=== PATIENT | male | born 1970 | race Caucasian/White ===

== ENCOUNTER 2024-04-18 15:20 | Emergency (ER) | payer OTHER, SELFPAY ==
[2024-04-18] VITALS (17 sets, daily range): BP systolic 116–134; BP diastolic 72–87; PULSE 64–73; TEMP 36.8; O2SAT 95–100
[2024-04-18 16:22] LABS: Basophils Percent Auto 0.4 % (0.2-2.0); Eosinophils Percent Auto 0.1 % (0.9-7.0); Hematocrit 36.4 % (42.0-54.0); Immature Granulocytes Abs Auto 0.04 10^3/uL (0.00-0.03); Immature Granulocytes Pct Auto 0.4 % (0.0-0.5); Lymphocytes Absolute Auto 0.5 10^3/uL (1.2-3.8); Mean Corpuscular Hemoglobin 26.3 pg (25.9-34.0); Mean Corpuscular Volume 79.6 fL (80.0-94.0); Mean Platelet Volume 9.7 fL (9.5-13.5); Monocytes Absolute Auto 0.5 10^3/uL (0.3-0.8); Monocytes Percent Auto 5.5 % (1.7-12.0); Neutrophils Absolute Auto 8.1 10^3/uL (1.4-6.5); Neutrophils Percent Auto 88.6 % (43.0-75.0); Platelet Count 264 10^3/uL (150-450); Red Blood Count 4.57 10^6/uL (4.70-6.10); Red Cell Distribution Width 14.5 % (11.0-15.0); White Blood Count 9.2 10^3/uL (4.0-11.0)
[2024-04-18 16:40] LABS: Alanine Aminotransferase 45 U/L (16-63); Albumin Globulin Ratio 0.8; Alkaline Phosphatase 82 U/L (46-116); Anion Gap 13.8; Aspartate Amino Transferase 45 U/L (15-37); BUN Creatinine Ratio 14.6; Bilirubin Total 0.7 mg/dL (0.2-1.0); Calcium 8.5 mg/dL (8.5-10.1); Carbon Dioxide 24.8 mmol/L (21.0-32.0); Chloride 102 mmol/L (98-107); Estimated GFR (African America >60 (>=60); Estimated GFR (Non-African Ame >60 (>=60); Globulin 3.8 g/dL; Glucose 95 mg/dL (74-106); Potassium 3.6 mmol/L (3.5-5.1); Sodium 137 mmol/L (136-145); Total Protein 6.8 g/dL (6.4-8.2); Troponin I High Sensitivity 6.1 pg/mL (4.0-76.1)
[2024-04-18 16:45] LABS: Creatine Kinase 346 U/L (39-308)
--- NOTE | 2024-04-18 17:20 | ED_ITS ---
HPI - Chest Pain General Chief Complaint: Chest Pain Stated Complaint: SOB AND PRESSURE, BACK/SHOULDER PAIN Time Seen by Provider: 04/18/24 16:11 Source: patient Mode of arrival: walk-in Limitations: no limitations History of Present Illness HPI narrative: The patient is coming to the ER after he was recently almost a month ago started on hydrochlorothiazide the patient noticed since then he has been having some muscle pain and joint pain that he mentioned that he runs frequently at least 10 miles daily, and he recently after restarting hydrochlorothiazide has been keeping himself hydrated, but he notes that he is been using ibuprofen daily because of the pain and the pain is all over his body and joints upper and lower no fever no chills no specific pain in 1 place more than the other. The patient have muscular pain all over the body including the chest and abdomen no nausea no vomiting no other concerns no diarrhea Related Data Previous Rx's ?Medication ?Instructions ?Recorded amlodipine 10 mg tablet 10 mg PO DAILY #30 tabs 04/18/24 prednisone 20 mg tablet 40 mg (2 x 20 mg) PO DAILY 5 days 04/18/24 #10 tabs Allergies Allergy/AdvReac Type Severity Reaction Status Date / Time codeine Allergy Mild Nausea Verified 04/18/24 15:36 Review of Systems ROS Status of ROS 10 or more systems reviewed and unremark able except as noted in history and below Exam Narrative Exam Narrative: Nurses notes and vital signs reviewed and patient is not hypoxic. General: Well-appearing and in no apparent distress. Skin: Warm, dry, no pallor noted. No rash. Head: Normocephalic, atraumatic. Neck: Supple, non-tender. Eye: Pupils are equal, round and EOMI. No scleral icterus. Ears, Nose, Mouth, and Throat: TM are clear, no nasal mucosal hypertrophy. Oral mucosa is moist, no posterior oropharynx erythema, uvula is mid-line Cardiovascular: Regular Rate and Rhythm without murmur, gallop or rub. Respiratory: No accessory muscle use or respiratory distress. Lungs are clear to auscultation, no wheezing, rales or rhonchi Chest Wall: no tenderness Back: No midline thoracic or lumbar vertebral tenderness. No CVA tenderness Musculoskeletal: normal ROM, no calf or popliteal tenderness, no lower extremity edema/swelling GI: Abdomen is soft, non-distended. Normal bowel sounds. No masses appreciated. No tenderness to palpation. No rebound, guarding, or rigidity noted. Neurological: A&O x4. No cranial nerve dysfunction observed. No truncal ataxia. Moves all extremities. Sensation intact. Psychiatric: Cooperative and interactive. Normal mood and affect. Constitutional Vital Signs, click to edit/add: Last Vital Signs Temp 98.3 F 04/18/24 15:36 Pulse 65 04/18/24 17:45 Resp 16 04/18/24 17:44 BP 118/74 04/18/24 17:45 Pulse Ox 96 04/18/24 17:45 O2 Del Method Room Air 04/18/24 16:14 Course Vital Signs Vital signs: Vital Signs Temperature 98.3 F 04/18/24 15:36 Pulse Rate 72 04/18/24 15:36 Respiratory Rate 17 04/18/24 15:36 Blood Pressure 129/77 04/18/24 15:36 Pulse Oximetry 97 04/18/24 15:36 Temperature 98.3 F 04/18/24 15:36 Pulse Rate 65 04/18/24 17:45 Respiratory Rate 16 04/18/24 17:44 Blood Pressure 118/74 04/18/24 17:45 Pulse Oximetry 96 04/18/24 17:45 Oxygen Delivery Method Room Air 04/18/24 16:14 MDM - Chest Pain MDM Narrative Medical decision making narrative: The patient EKG was showing sinus rhythm with a heart rate of [address] elevation or depression CBC chemistry as well as troponin showed no acute pathology the patient had a CK mildly elevated The patient muscle pain could be secondary to multiple reasons including could be a viral infection although the patient also running daily 10 miles , although it is his routine in this hot weather with the fact that he just started on hydrochlorothiazide could be a further element to dehydrate him and cause more muscle ache The patient right now will have the amlodipine increased to 10 mg instead of the hydrochlorothiazide and he will stop taking the hydrochlorothiazide He will monitor his blood pressure daily in case of elevated blood pressure he is to come back to the ER to be evaluated further or just follow-up with his primary care doctor The patient was provided with prednisone for the next 5 days as anti- inflammatory he is to rest from running and hydrate very well in case of any worsening he is to come back to the ER The patient is to follow up with primary care physician in next 2-3 days or to return to the emergency department should any of the signs or symptoms worsen or new symptoms develop. The patient agrees with the following Diagnosis and Treatment plan and the patient will be discharged home. Lab Data Labs: Lab Results 04/18/24 Range/Units 15:56 WBC 9.2 (4.0-11.0) 10^3/uL RBC 4.57 L (4.70-6.10) 10^6/uL Hgb 12.0 L (14.0-18.0) g/dL Hct 36.4 L (42.0-54.0) % MCV 79.6 L (80.0-94.0) fL MCH 26.3 (25.9-34.0) pg MCHC 33.0 (29.9-35.2) g/dL RDW 14.5 (11.0-15.0) % Plt Count 264 (150-450) 10^3/uL MPV 9.7 (9.5-13.5) fL Neut % (Auto) 88.6 H (43.0-75.0) % Lymph % (Auto) 5.0 L (20.5-60.0) % [place] % (Auto) 5.5 (1.7-12.0) % Eos % (Auto) 0.1 L (0.9-7.0) % Baso % (Auto) 0.4 (0.2-2.0) % Neut # (Auto) 8.1 H (1.4-6.5) 10^3/uL Lymph # (Auto) 0.5 L (1.2-3.8) 10^3/uL [place] # (Auto) 0.5 (0.3-0.8) 10^3/uL Eos # (Auto) 0.0 (0.0-0.7) 10^3/uL Baso # (Auto) 0.0 (0.0-0.1) 10^3/uL Abs Immat Gran (auto) 0.04 H (0.00-0.03) 10^3/uL Imm/Tot Granulo (auto) 0.4 (0.0-0.5) % Sodium 137 (136-145) mmol/L Potassium 3.6 (3.5-5.1) mmol/L Chloride 102 (98-107) mmol/L Carbon Dioxide 24.8 (21.0-32.0) mmol/L Anion Gap 13.8 BUN 14.0 (7.0-18.0) mg/dL Creatinine 0.96 (0.70-1.30) mg/dL Est GFR ( Amer) >60 (>=60) Est GFR (Non-Af Amer) >60 (>=60) BUN/Creatinine Ratio 14.6 Glucose 95 (74-106) mg/dL Calcium 8.5 (8.5-10.1) mg/dL Total Bilirubin 0.7 (0.2-1.0) mg/dL AST 45 H (15-37) U/L ALT 45 (16-63) U/L Alkaline Phosphatase 82 (46-116) U/L Total Creatine Kinase 346 H* (39-308) U/L Troponin I High Sens 6.1 (4.0-76.1) pg/mL Total Protein 6.8 (6.4-8.2) g/dL Albumin 3.0 L (3.4-5.0) g/dL Globulin 3.8 g/dL Albumin/Globulin Ratio 0.8 Discharge Plan Discharge Stand Alone Forms: Portal Instructions Chief Complaint: Chest Pain Clinical Impression: Generalized muscle ache Patient Disposition: Home, Self-Care Time of Disposition Decision: 17:20 Condition: Good Prescriptions / Home Meds: New amlodipine 10 mg tablet 10 mg PO DAILY Qty: 30 0RF prednisone 20 mg tablet 40 mg PO DAILY 5 Days Qty: 10 0RF Print Language: Vietnamese Instructions: Musculoskeletal Pain (ED) Referrals: DALIA CÁRDENAS [Primary Care Provider] - 1 week Discharge Date/Time: 04/18/24 17:56
[2024-04-18] MEDS: METHYLPREDNISOLONE SOD SUCC PF 40 MG/ML VIAL IVP (17:43)
--- NOTE | 2024-04-18 17:43 | ECG_ITS ---
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
== END 2024-04-18 17:56 | disposition home or self-care (01) ==
PROVIDERS: Emergency Provider Emergency Medicine; PCP Internal Medicine
DX: M79.10 Myalgia, unspecified site (principal); Z79.899 Other long term (current) drug therapy
CPT/HCPCS: 36415; 80053; 82550; 84484; 85025; 93005; 96374; 99285; J2919

== ENCOUNTER 2024-04-22 10:10 | Inpatient (IN) | payer OTHER, SELFPAY ==
[2024-04-22] VITALS (20 sets, daily range): BP systolic 136–141; BP diastolic 81–87; PULSE 53–78; TEMP 36.7; O2SAT 94–99; BMI 23.6; BMI 24.1
--- NOTE | 2024-04-22 10:31 | CT_ITS ---
[address] [address] Patient Name: LONDON DAMON MRN: [id number] date: 1970 Sex: M Assigned Patient Location: ED.MAIN Current Patient Location: Accession/Order Number: [id number] Exam Date: 04/22/2024 11:49 Report Date: 04/22/2024 12:54 At the request of: DANICA PINEDA Procedure: CT angio chest EXAMINATION: CT angio chest, CT angio abdomen pelvis HISTORY: chest/back pain COMPARISON: No relevant comparison available. TECHNIQUE: After obtaining the patient's consent, CT images of the chest and abdomen were obtained without and with non-ionic intravenous contrast material. Axial, Coronal, and Sagittal images. Multi-planar reformatted/3-D images were created to optimize visualization of vascular anatomy. Dose reduction techniques were achieved by using automated exposure control and/or adjustment of mA and/or kV according to patient size and/or use of iterative reconstruction technique. FINDINGS: VASCULATURE:Normal postcontrast opacification of the central pulmonary arterial tree with no filling defects LUNGS:No visible pulmonary disease. PLEURA: No mass, effusion, or pneumothorax. ELLIA: No mass or adenopathy. MEDIASTINUM: No mass or adenopathy. CARDIAC: No enlargement or pericardial effusion Coronary arteries: Moderate atherosclerosis CHEST WALL: No mass or axillary adenopathy. AORTA/VASCULAR: No aneurysm or dissection. CELIAC ARTERY: Normal celiac vessels. SMA: Normal mesenteric vessels. RENAL ARTERIES: Normal renal vessels. Single right renal. Single left renal artery. ANNMARIE: Normal [place]: Mild calcific atherosclerosis. No flow significant stenosis occlusion or aneurysm LIVER: 1.3 cm hypodensity hepatic dome, a cyst is favored BILIARY: No visible dilatation or calcification. PANCREAS: No lesion, fluid collection, ductal dilatation, or atrophy. SPLEEN: No enlargement or focal lesion. ADRENALS: No mass or enlargement. KIDNEYS: No mass, obstruction, or calcification. BOWEL/MESENTERY: Moderate colonic diverticulosis without evidence of acute diverticulitis. Nonobstructive bowel gas pattern RETROPERITONEUM: No mass or adenopathy. ABDOMINAL WALL: No mass or hernia. Implanted device right posterior abdominal subcutaneous fat with the lead extending off the field of view BONES: No bony lesion or fracture. OTHER: Moderate fluid distention of the urinary bladder CT/CT angio chest IMPRESSION: No aortic aneurysm or dissection Electronically authenticated by: DENY JONES Date: 04/22/2024 12:54
--- NOTE | 2024-04-22 10:31 | CT_ITS ---
[address] [address] Patient Name: LONDON DAMON MRN: [id number] date: 1970 Sex: M Assigned Patient Location: ED.MAIN Current Patient Location: Accession/Order Number: [id number] Exam Date: 04/22/2024 11:49 Report Date: 04/22/2024 12:54 At the request of: DANICA PINEDA Procedure: CT angio abdomen pelvis EXAMINATION: CT angio chest, CT angio abdomen pelvis HISTORY: chest/back pain COMPARISON: No relevant comparison available. TECHNIQUE: After obtaining the patient's consent, CT images of the chest and abdomen were obtained without and with non-ionic intravenous contrast material. Axial, Coronal, and Sagittal images. Multi-planar reformatted/3-D images were created to optimize visualization of vascular anatomy. Dose reduction techniques were achieved by using automated exposure control and/or adjustment of mA and/or kV according to patient size and/or use of iterative reconstruction technique. FINDINGS: VASCULATURE:Normal postcontrast opacification of the central pulmonary arterial tree with no filling defects LUNGS:No visible pulmonary disease. PLEURA: No mass, effusion, or pneumothorax. LELIA: No mass or adenopathy. MEDIASTINUM: No mass or adenopathy. CARDIAC: No enlargement or pericardial effusion Coronary arteries: Moderate atherosclerosis CHEST WALL: No mass or axillary adenopathy. AORTA/VASCULAR: No aneurysm or dissection. CELIAC ARTERY: Normal celiac vessels. SMA: Normal mesenteric vessels. RENAL ARTERIES: Normal renal vessels. Single right renal. Single left renal artery. ANNMARIE: Normal [place]: Mild calcific atherosclerosis. No flow significant stenosis occlusion or aneurysm LIVER: 1.3 cm hypodensity hepatic dome, a cyst is favored BILIARY: No visible dilatation or calcification. PANCREAS: No lesion, fluid collection, ductal dilatation, or atrophy. SPLEEN: No enlargement or focal lesion. ADRENALS: No mass or enlargement. KIDNEYS: No mass, obstruction, or calcification. BOWEL/MESENTERY: Moderate colonic diverticulosis without evidence of acute diverticulitis. Nonobstructive bowel gas pattern RETROPERITONEUM: No mass or adenopathy. ABDOMINAL WALL: No mass or hernia. Implanted device right posterior abdominal subcutaneous fat with the lead extending off the field of view BONES: No bony lesion or fracture. OTHER: Moderate fluid distention of the urinary bladder CT/CT angio abdomen pelvis IMPRESSION: No aortic aneurysm or dissection Electronically authenticated by: DENY OJNES Date: 04/22/2024 12:54
--- NOTE | 2024-04-22 10:31 | US_ITS ---
[place] [address] Patient Name: LONDON DAMON MRN: [id number] date: 1970 Sex: M Assigned Patient Location: ER Current Patient Location: ER Accession/Order Number: [id number] Exam Date: 04/22/2024 10:55 Report Date: 04/22/2024 11:35 At the request of: DANICA PINEDA Procedure: US venous doppler LE RT EXAM: US venous doppler LE RT HISTORY: R leg pain/swelling COMPARISON: None. TECHNIQUE: Grayscale, color and Doppler FINDINGS: Region: Right leg Thrombus: None Flow: Normal Augmentation: Normal Compressibility: Normal Other: 6.3 x 1.4 x 2.9 cm fluid collection popliteal fossa, a popliteal cyst is favored US/US venous doppler LE RT IMPRESSION: No deep or superficial vein thrombus identified in the right leg Electronically authenticated by: DENY JONES Date: 04/22/2024 11:35
--- NOTE | 2024-04-22 10:31 | ECG_ITS ---
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
--- OUTSIDE RECORDS SUMMARY | 2024-04-22 10:32 | XMS_ITS ---
Patient Summarization (C-CDA 2.1 CCD) Created on: April 22, 2024 ANIBAL DAMON : 1970 Sex: Male Author Organization Sample organization Care Team Providers Care Cable Splicer Assistant Name Role Phone Unavailable Primary Care Provider Unavailrachael e Baljinder Hamilton Primary Care Provider Baljinder Hamilton Primary Care Provider Baljinder Hamilton Primary Care Provider Baljinder Hamilton Primary Care Provider SUKHJINDER MUSA Referring Unavailable BALJINDER ARTHUR Primary Care Unavailable MEHREEN OLIVAREZ Referring Unavailable BALJINDER ARTHUR Primary Care Unavailable CAROLYN JOSEPH Referring Unavailable BALJINDER ARTHUR Primary Care Unavailable BALJINDER ARTHUR Referring Unavailable BALJINDER ARTHUR Primary Care Unavailable Nicole Jean Attending Unavailable Nicole Jean Admitting Unavailable Provider, None Primary Care Unavailable Allergies Allergy Classification Reported Allergen(s) Allergy Type Date of Onset Reaction(s) Facility (7 sources) HYDROcodone Drug Allergy 1 [facility] (1 source) Codeine; Translations: [codeine] Drug Allergy [facility] Repository NEGATED: Highlighted row has been ruled out! (2 sources) Other Propensity to adverse reactions 3 Other (See Comments) [facility] Encounters Encounter Date Encounter Type Care Provider Facility Start: 03-17-2024 End: 03-17-2024 Emergency department patient visit Nicole Jean Facility:[facility] Start: 03-30-2023 End: 03-31-2023 ambulatory MEHREEN OLIVAREZ [facility] Start: 03-30-2023 End: 03-30-2023 Subsequent hospital visit by physician Baljinder MARSHALL Work Phone: [facility] Laboratory Comment on above: Serum potassium elev ated Start: 03-26-2023 End: 03-27-2023 ambulatory BALJINDER ARTHUR [facility] Start: 03-26-2023 End: 03-26-2023 Subsequent hospital visit by physician Baljinder MARSHALL Work Phone: [facility] Lab Comment on above: Essential (primary) hypertension; Hyperlipidemia, unspecified hyperlipidemia type Start: 08-31-2022 End: 09-03-2022 ambulatory SUKHJINDER MUSA [facility] Start: 08-31-2022 End: 09-02-2022 Subsequent hospital visit by physician [facility] Mri Rm 119 [facility] MRI Comment on above: SAH (subarachnoid he morrhage) (HCC) Complex regional constance n syndrome type 1 of left upper extremity; Failure of spinal cord stimulator, subsequent encounter Start: 07-19-2022 End: 07-19-2022 Subsequent hospital visit by physician Nidia Archer DO Work Phone: [facility] OR Comment on above: Acute post-operative pain (Primary Dx); Complex regional pain syndrome type 1 of left upper extremity; Essential (primary) hypertension; Hyperlipidemia, unspecified hyperlipidemia type Start: 07-05-2022 End: 07-09-2022 Subsequent hospital visit by physician Ion Pat Rm 2 [facility] Pre-Admit Testing Start: 09-06-2021 End: 09-08-2021 Subsequent hospital visit by physician [facility] Ct Rm 1 [facility] CT Scan Comment on above: SAH (subarachnoid he morrhage) (HCC) Start: 03-08-2021 End: 03-10-2021 Subsequent hospital visit by physician [facility] Ct Rm 1 [facility] CT Scan Comment on above: SAH (subarachnoid he morrhage) (HCC) Start: 12-22-2020 End: 12-24-2020 Subsequent hospital visit by physician [facility] Ct Rm 1 [facility] CT Scan Comment on above: Sciatica of left gogo e Start: 12-03-2020 End: 12-13-2020 Evaluation and management of inpatient Geraldo Ribera Lukasz Work Phone: [facility] 5C Neuro Comment on above: SAH (subarachnoid he morrhage) (HCC) (Primary Dx) Medical Equipment Procedure Code Equipment Code Equipment Original Text Equipment Identifier Dates Lead Pace L90cm 2x8 Spec Surescan Mri - [id number] Start: 12-11-2022 Pouch Tyrx Neuro Antimicrobial Med - [id number] Start: 12-12-2022 Plate Bne Bar L1 2mm 2 H Craniomaxillofacial Ti Rig For Univ - [id number] Start: 12-11-2022 Cath Passer 60cm - [id number] Start: 12-12-2022 Immunizations Immunization Date Immunization Notes Care Provider Fa cility 02-11-2021 COVID-19, Pfizer, PF , 30mcg/0.3mL Stc 1 [facility] Work Phone: 01-21-2021 COVID-19, Pfizer, PF , 30mcg/0.3mL Stc 1 [facility] Medications Current Medications Medication Drug Class(es) Dates Sig (Normalized) Sig (Original) acetaminophen 325 mg oral tablet (4 sources) Start: 12-13-2020 acetaminophen (TYLENOL) tablet 650 mg Start: 12-06-2020 End: 12-13-2020 acetaminophen (TYLENOL) tabl et 1,000 mg Start: 12-03-2020 End: 12-06-2020 acetaminophen (TYLENOL) tabl et 650 mg amitriptyline hydrochloride 25 mg oral tablet (1 source) Tricyclic Antidepressant Start: 01-03-2021 take 1 tablet by mouth once daily amitriptyline (ELAVIL) 25 MG tablet Take 1 tablet by mouth nightly 30 tablet 0 01/03/2021 Active atorvastatin 20 mg oral tablet (12 sources) HMG-CoA Reductase Inhibitor Start: 03-04-2023 take 1 tablet by mouth once daily atorvastatin (LIPITOR) 20 MG tablet Indications: Essential (primary) hypertension , Hyperlipidemia, unspecified hyperlipidemia type Take 1 tablet by mouth daily 90 tablet 1 03/04/2023 Active Start: 08-08-2022 take 1 tablet by mingo th once daily atorvastatin (LIPITOR) 20 MG tablet Indications: Essential (primary) hypertension , Hyperlipidemia, unspecified hyperlipidemia type Take 1 tablet by mouth daily 90 tablet 1 08/08/2022 Active Start: 04-25-2022 take 1 tablet by mingo th once daily atorvastatin (LIPITOR) 20 MG tablet Indications: Essential (primary) hypertension , Hyperlipidemia, unspecified hyperlipidemia type TAKE ONE TABLET BY MOUTH DAILY 90 tablet 0 04/25/2022 Active Start: 05-22-2021 take 1 tablet by mingo th once daily atorvastatin (LIPITOR) 20 MG tablet Indications: Essential (primary) hypertension , Hyperlipidemia, unspecified hyperlipidemia type Take 1 tablet by mouth daily 30 tablet 3 05/22/2021 Active Start: 12-13-2020 take 1 tablet by mingo th once daily atorvastatin (LIPITOR) 20 MG tablet Take 1 tablet by mouth daily 30 tablet 3 12/13/2020 Active Start: 12-05-2020 atorvastatin ( LIPITOR) tablet 40 mg Start: 12-03-2020 End: 12-04-2020 atorvastatin (LIPITOR) table t 80 mg azelastine hydrochloride 0.137 mg/actuat metered dose nasal spray (7 sources) Histamine-1 Receptor Antagonist Start: 04-20-2022 take 1 spray(s) nasal route twice daily azelastine (ASTELIN) 0.1 % nasal spray Indications: Essential (primary) hypertension , Hyperlipidemia, unspecified hyperlipidemia type 1 spray by Nasal route 2 times daily Use in each nostril as directed 2 each 1 04/20/2022 Active Start: 05-22-2021 take 1 spray(s) nasa l route twice daily azelastine (ASTELIN) 0.1 % nasal spray Indications: Essential (primary) hypertension , Hyperlipidemia, unspecified hyperlipidemia type 1 spray by Nasal route 2 times daily Use in each nostril as directed 2 Bottle 1 05/22/2021 Active cephalexin 500 mg oral capsule (1 source) Cephalosporin Antibacterial Start: 07-19-2022 End: 07-22-2022 take 1 capsule by mouth three times daily cephALEXin (KEFLEX) 500 MG capsule Take 1 capsule by mouth 3 times daily for 3 days 9 capsule 0 07/19/2022 07/22/2022 Active citalopram 10 mg oral tablet (11 sources) Serotonin Reuptake Inhibitor Start: 03-04-2023 take 1 tablet by mouth once daily citalopram (CELEXA) 10 MG tablet Indications: Anxiety Take 1 tablet by mouth daily 90 tablet 1 03/04/2023 Active Start: 11-08-2021 take 1 tablet by mingo th once daily citalopram (CELEXA) 10 MG tablet Indications: Anxiety Take 1 tablet by mouth daily 30 tablet 3 11/08/2021 Active Start: 12-04-2020 take 10 mg by mouth once daily 10 mg, Oral, DAILY, First dose on 12/04/20 at 0900 1 ml diphenhydrAMINE hydrochloride 50 mg/ml cartridge (1 source) Histamine-1 Receptor Antagonist Start: 07-19-2022 End: 07-19-2022 diphenhydrAMINE (BENADRYL) injection 12.5 mg docusate sodium 50 mg / sennosides, jail 8.6 mg oral tablet (1 source) Start: 12-05-2020 sennosides-doc usate sodium (SENOKOT-S) 8.6-50 MG tablet 2 tablet 2 ml fentaNYL 0.05 mg/ml injection (5 sources) Opioid Agonist Start: 07-19-2022 fentaNYL (SUBL IMAZE) injection 50 mcg Start: 07-19-2022 fentaNYL (SUBL IMAZE) injection 25 mcg Start: 12-13-2020 End: 12-13-2020 fentaNYL (SUBLIMAZE) injecti on Start: 12-04-2020 End: 12-04-2020 fentaNYL (SUBLIMAZE) injecti on 25 mcg Start: 12-04-2020 End: 12-04-2020 fentaNYL (SUBLIMAZE) injecti on 25 mcg fluorouracil 50 mg/ml topical cream (1 source) Nucleoside Metabolic Inhibitor Start: 09-01-2021 fluorouracil (EFUDEX ) 5 % cream Apply topically 2 times daily for not more than 4 weeks 40 g 1 09/01/2021 Active gabapentin 300 mg oral capsule (5 sources) Anti-epileptic Agent Start: 12-13-2020 gabapenti n (NEURONTIN) capsule 300 mg Start: 12-13-2020 End: 01-12-2021 take 1 capsule by mouth once daily gabapentin (NEURONTIN) 300 MG capsule Take 1 capsule by mouth nightly for 30 days. 30 capsule 0 12/13/2020 Active Start: 12-04-2020 End: 12-13-2020 gabapentin (NEURONTIN) capsu le 200 mg 4 ml labetalol hydrochloride 5 mg/ml cartridge (1 source) beta-Adrenergic [place] Start: 12-03-2020 10 mg, Intravenous, EVERY 10 MIN PRN, High Blood Pressure, Starting 12/03/20 at 2354 For systolic blood pressure greater than 5 mmHg. Hold for HR less than 50 and notify provider. lisinopril 10 mg oral tablet (11 sources) Angiotensin Converting Enzyme Inhibitor Start: 03-04-2023 take 1 tablet by mouth once daily lisinopril (PRINIVIL;ZESTRIL) 10 MG tablet Indications: Essential (primary) hypertension , Hyperlipidemia, unspecified hyperlipidemia type Take 1 tablet by mouth daily 90 tablet 1 03/04/2023 Active Start: 08-20-2022 take 1 tablet by mingo th once daily lisinopril (PRINIVIL;ZESTRIL) 10 MG tablet Indications: Essential (primary) hypertension , Hyperlipidemia, unspecified hyperlipidemia type TAKE ONE TABLET BY MOUTH DAILY 90 tablet 3 08/20/2022 Active Start: 07-21-2021 take 1 tablet by mingo th once daily lisinopril (PRINIVIL;ZESTRIL) 10 MG tablet Indications: Essential (primary) hypertension , Hyperlipidemia, unspecified hyperlipidemia type Take 1 tablet by mouth daily 90 tablet 3 07/21/2021 Active Start: 12-04-2020 take 1 tablet by mingo th once daily lisinopril (PRINIVIL;ZESTRIL) 10 MG tablet Take 1 tablet by mouth daily 30 tablet 3 12/13/2020 Active magnesium hydroxide 80 mg/ml oral suspension (1 source) Start: 12-04-2020 magnesium hydr oxide (MILK OF MAGNESIA) 400 MG/5ML suspension 30 mL 100 ml magnesium sulfate 40 mg/ml injection (9 sources) Start: 12-11-2020 magnesium sulf ate SOLN 4 g Start: 12-10-2020 End: 12-11-2020 magnesium sulfate 2 g in 50 mL IVPB premix Start: 12-09-2020 End: 12-09-2020 magnesium sulfate 2 g in 50 mL IVPB premix Start: 12-08-2020 End: 12-08-2020 magnesium sulfate 1 g in dex trose 5% 100 mL IVPB Start: 12-03-2020 End: 12-06-2020 magnesium sulfate 2 g in 50 mL IVPB premix methocarbamol 750 mg oral tablet (1 source) Muscle Relaxant Start: 12-11-2020 methocarbamol (ROBAXIN) tablet 750 mg niMODipine 30 mg oral capsule (4 sources) Dihydropyridine Calcium Channel [place] Start: 12-13-2020 End: 12-24-2020 take 2 capsules by mouth every four hours niMODipine (NIMOTOP) 30 MG capsule Take 2 capsules by mouth every 4 hours for 11 days 132 capsule 0 12/13/2020 Active Start: 12-04-2020 niMODipine (NI MOTOP) capsule 60 mg 2 ml ondansetron 2 mg/ml injection (1 source) Serotonin-3 Receptor Antagonist Start: 07-19-2022 End: 07-19-2022 ondansetron (ZOFRAN) injection 4 mg oxyCODONE hydrochloride 5 mg oral tablet (3 sources) Opioid Agonist Start: 12-10-2020 End: 12-18-2020 take 1 tablet by mouth every eight hours as needed for pain oxyCODONE (ROXICODONE) 5 MG immediate release tablet Indications: SAH (subarachnoid hemorrhage) (HCC) Take 1 tablet by mouth every 8 hours as needed for Pain for up to 5 days. 5 tablet 0 12/13/2020 12/18/2020 Active Promethazine (1 source) Phenothiazine Start: 12-03-2020 promethazine (PHENERGAN) tablet 12.5 mg 5 ml sodium chloride 9 mg/ml injection (13 sources) Start: 08-31-2022 sodium chloride flush 0.9 % injection 10 mL Start: 07-19-2022 0.9 % sodium c hloride infusion Start: 07-19-2022 sodium chlorid e flush 0.9 % injection 5-40 mL Start: 09-06-2021 sodium chlorid e flush 0.9 % injection 10 mL Start: 09-06-2021 End: 09-06-2021 0.9 % sodium chloride bolus Start: 03-08-2021 sodium chlorid e flush 0.9 % injection 10 mL Start: 03-08-2021 End: 03-08-2021 0.9 % sodium chloride bolus Start: 12-13-2020 0.9 % sodium c hloride infusion Start: 12-04-2020 10 mL, Intrave nous, EVERY 12 HOURS SCHEDULED (2 times per day), First dose on 12/04/20 at 0900 Start: 12-03-2020 take 10 mL intraveno us route once as needed 10 mL, Intravenous, PRN, Line Care, After every IV line use, Starting 12/03/20 at 2354 Start: 12-03-2020 End: 12-05-2020 0.9 % sodium chloride infusi on traMADol hydrochloride 50 mg oral tablet (1 source) Opioid Agonist Start: 07-19-2022 End: 07-26-2022 traMADol (ULTRAM) 50 MG tablet Indications: Acute post-operative pain Take 1 tablet by mouth every 6 hours as needed for Pain for up to 7 days. Intended supply: 3 days. Take lowest dose possible to manage pain 18 tablet 0 07/19/2022 07/26/2022 Active Completed/Discontinued Medications Medication Drug Class(es) Dates Sig (Normalized) Sig (Original) acetaminophen 325 mg / HYDROcodone bitartrate 5 mg oral tablet (1 source) Opioid Agonist Start: 07-19-2022 End: 07-19-2022 HYDROcodone-acetami nophen (NORCO) 5-325 MG per tablet Indications: Acute post-operative pain Take 1 tablet by mouth every 6 hours as needed for Pain for up to 7 days. Intended supply: 7 days. Take lowest dose possible to manage pain 28 tablet 0 07/19/2022 07/19/2022 Discontinued (Stop Taking at Discharge) calcium chloride 0.0014 meq/ml / potassium chloride 0.004 meq/ml / sodium chloride 0.103 meq/ml / sodium lactate 0.028 meq/ml injectable solution (1 source) Start: 07-19-2022 End: 07-19-2022 lactated ringers infusion 1,000 mL ceFAZolin (ANCEF) 2 g in dextrose 5 % 50 mL IVPB (1 source) Start: 12-13-2020 End: 12-13-2020 ceFAZolin (ANCEF) 2 g in dextrose 5 % 50 mL IVPB 100 ml clevidipine 0.5 mg/ml injection (1 source) Dihydropyridine Calcium Channel [place] Start: 12-04-2020 End: 12-06-2020 clevidipine (CLEVIPREX) infusion cyclobenzaprine hydrochloride 10 mg oral tablet (1 source) Muscle Relaxant Start: 12-10-2020 End: 12-10-2020 cyclobenzaprine (FLEXERIL) tablet 5 mg Start: 12-10-2020 End: 12-10-2020 cyclobenzaprine (FLEXERIL) t ablet 5 mg 1 ml dexamethasone phosphate 4 mg/ml injection (1 source) Corticosteroid Start: 12-04-2020 End: 12-06-2020 dexamethasone (DECADRON) injection 4 mg famotidine 20 mg oral tablet (2 sources) Histamine-2 Receptor Antagonist Start: 12-04-2020 End: 12-13-2020 famotidine (PEPCID) tablet 20 mg Start: 12-03-2020 End: 12-04-2020 famotidine (PEPCID) injectio n 20 mg gadoteridol (PROHANCE) injection 16 mL (1 source) Start: 08-31-2022 End: 08-31-2022 gadoteridol (PROHANCE) injection 16 mL 1 ml hydrALAZINE hydrochloride 20 mg/ml injection (1 source) Arteriolar Vasodilator Start: 12-04-2020 End: 12-04-2020 hydrALAZINE (APRESOLINE) injection 10 mg 1 ml HYDROmorphone hydrochloride 1 mg/ml cartridge (2 sources) Opioid Agonist Start: 12-03-2020 End: 12-03-2020 HYDROmorphone (DILAUDID) injection 0.5 mg Start: 12-03-2020 End: 12-03-2020 HYDROmorphone (DILAUDID) inj ection 1 mg iodixanol (VISIPAQUE) inject ion 200 mL (2 sources) Start: 12-13-2020 End: 12-13-2020 iodixanol (VISIPAQUE) inject ion 200 mL Start: 12-04-2020 End: 12-04-2020 iodixanol (VISIPAQUE) inject ion 200 mL iopamidol (ISOVUE-370) 76 % injection 75 mL (2 sources) Start: 09-06-2021 End: 09-06-2021 iopamidol (ISOVUE-370) 76 % injection 75 mL Start: 03-08-2021 End: 03-08-2021 iopamidol (ISOVUE-370) 76 % injection 75 mL iopamidol (ISOVUE-370) 76 % injection 90 mL (1 source) Start: 12-03-2020 End: 12-03-2020 iopamidol (ISOVUE-370) 76 % injection 90 mL 100 ml levETIRAcetam 5 mg/ml injection (2 sources) Start: 12-04-2020 End: 12-08-2020 levetiracetam (KEPPRA) 500 mg/100 mL IVPB Start: 12-03-2020 End: 12-03-2020 levetiracetam (KEPPRA) 1000 mg/100 mL IVPB methylPREDNISolone 4 mg oral tablet (6 sources) Corticosteroid Start: 12-08-2020 End: 12-08-2020 methylPREDNISolone (MEDROL) tablet 8 mg Start: 12-08-2020 End: 12-12-2020 methylPREDNISolone (MEDROL) tablet 4 mg Start: 12-07-2020 End: 12-07-2020 methylPREDNISolone (MEDROL) tablet 24 mg 2 ml midazolam 1 mg/ml injection (1 source) Benzodiazepine Start: 12-13-2020 End: 12-13-2020 midazolam PF (VERSED) injection 1 ml morphine sulfate 4 mg/ml cartridge (1 source) Opioid Agonist Start: 12-03-2020 End: 12-03-2020 morphine injection 4 mg niCARdipine (CARDENE) 25 mg in dextrose 5 % 250 mL infusion (1 source) Start: 12-03-2020 End: 12-04-2020 niCARdipine (CARDENE) 25 mg in dextrose 5 % 250 mL infusion niCARdipine (CARDENE) 25 mg in sodium chloride 0.9 % 250 mL infusion (1 source) Start: 12-04-2020 End: 12-04-2020 niCARdipine (CARDENE) 25 mg in sodium chloride 0.9 % 250 mL infusion Payers Date Payer Category Payer Unknown [id number] 2020 Unknown [id number] 1970 Unknown [id number] 1970 Unknown [id number] 1970 Unknown [id number] [id number] 1970 Unknown [id number] 1970 Unknown [id number] Plan of Treatment Date Care Activity Detail Author Start: 05-01-2025 Screening for malign ant neoplasm of colon [facility] Start: 03-26-2024 Lipid panel Lipids [facility] Start: 03-04-2024 Depression Screen Depression Screen [facility] Start: 12-04-2023 Diabetes screen Diabetes screen [facility] Start: 06-25-2023 Influenza vaccination Flu vacc ine (Season Ended) [facility] Start: 09-17-2022 End: 09-17-2022 Patient encounter procedure 09/17/2022 Office Visit Neurosurgery Nidia Archer DO [address] [facility] [address] [phone] [facility] Start: 09-01-2022 Creatinine measurement Creatinine mo [facility] Work Phone: Start: 09-01-2022 Lipid panel [facility] Start: 09-01-2022 Potassium monitoring Potassium monit oring [facility] Work Phone: Start: 08-02-2022 End: 08-02-2022 Patient encounter procedure 08/02/2022 Office Visit Neurosurgery Sukhjinder Musa W, ADJUNCT PHYSICAL ED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 [address] [facility] [address] [place] [address] [phone] [facility] Start: 07-26-2022 Influenza vaccination Flu vaccine (# 1) [facility] Start: 07-19-2022 End: 07-19-2022 Admission to same day surgery center 07/19/2022 Surgery IP Unit Nidia Archer DO [address] [facility] [address] [place] [phone] EXPLANTATION OF SPINAL CORD STIMULATOR (REGULAR TABLE, PRONE) [facility] Comment on above: EXPLANTATION OF SPIN AL CORD STIMULATOR (REGULAR TABLE, PRONE) Start: 07-19-2022 End: 07-19-2022 STIMULATOR INSERTION [facility] Start: 07-19-2022 Subsequent hospital visit by physician 07/19/2022 Hospital Encounter IP Unit Nidia Archer DO [address] [facility] [address] [phone] [facility] Start: 06-25-2022 Influenza vaccination Flu vaccine (# 1) [facility] Start: 05-22-2022 Depression Screen Depression Screen [facility] Start: 12-13-2021 Creatinine measurement Creatinine mo nitoring [place], [place] Start: 12-13-2021 Potassium monitoring Potassium monit oring [place], [place] Start: 12-04-2021 Lipid panel Lipid screen [place], [place] Start: 10-16-2021 End: 10-16-2021 Patient encounter procedure 10/16/2021 Office [place] [address] [place] [address] [facility] Start: 10-03-2021 End: 10-03-2021 ambulatory 10/03/2021 Virtual Visit Neurology Carolyn Joseph MD [address] [facility] [address] [address] [facility] Start: 09-30-2021 Screening for malign ant neoplasm of colon Colon cancer screen fecal DNA test (Cologuard) [facility] Phone: Start: 07-26-2021 Influenza vaccination [facility] Phone: Start: 07-14-2021 COVID-19 Vaccine (3 - Booster for Pfizer series) COVID-19 Vaccine (3 - Booster for Pfizer series) [facility] Start: 04-08-2021 COVID-19 Vaccine (3 - Booster for Pfizer series) COVID-19 Vaccine (3 - Booster for Pfizer series) [facility] Start: 03-13-2021 End: 03-13-2021 ambulatory 03/13/2021 Virtual Visit Neurology Carolyn Joseph MD [address] [facility] [address] [place] [address] [phone] [facility] Start: 03-13-2021 End: 12-13-2021 CTA HEAD W CONTRAST CTA HEAD W CONTRAST Imaging Routine SAH (subarachnoid hemorrhage) (HCC) Expected: 03/13/2021, Expires: 12/13/2021 [place], [place] Comment on above: Expected: 03/13/2021 , Expires: 12/13/2021 Start: 03-07-2021 End: 03-07-2021 Office Visit 03/07/2021 Office Visit Neurology Carolyn Joseph MD [address] [facility] [address] [place] [address] [phone] [facility] Start: 01-06-2021 End: 01-06-2021 Office Visit 01/06/2021 Office Visit Neurology Hermes Box MD [address] [facility] [address] [address] [phone] [facility] Start: 01-02-2021 End: 01-02-2021 Office Visit 01/02/2021 Office Visit Neurology Pavan Howell MD [address] [facility] [address] [place] [address] [phone] [facility] [place] Start: 07-26-2020 Influenza vaccination Flu vaccine (# 1) [place], [place] Start: 2018 Screening for malign ant neoplasm of colon Colon cancer screen colonoscopy [place], [place] Start: 2018 Shingles Vaccine (1 of 2) Shingles Vaccine (1 of 2) [facility] Start: 2013 Screening for malign ant neoplasm of colon [facility] Start: 1987 DTaP/Tdap/Td vaccine (1 - Tdap) DTaP/Tdap/Td vaccine (1 - Tdap) [facility] Start: 1983 HIV screening HIV screen [place], [place] Start: 1968 Hepatitis C screening Hepatitis C sc reen [place], [place] Basic metabolic 2000 panel BASIC METABOLIC PANEL Lab Routine Daily until discontinued starting 12/07/2020, 6 completed [place], [place] Comment on above: Daily until disconti nued starting 12/07/2020, 6 completed CBC WITH AUTO DIFFERENTIAL CBC WITH AUTO DIFFERENTIAL Lab Routine Daily until discontinued starting 12/07/2020, 6 completed [place] Comment on above: Daily until disconti nued starting 12/07/2020, 6 completed End: 03-26-2023 Comprehensive metabolic 2000 panel - Serum or Plasma [facility] [employer] Phone: Comment on above: 1 Occurrences starti ng 03/26/2023 until 03/26/2023 Continuous pulse oximetry Pulse oximetry, continuous Respiratory Care Routine Every 4hr until discontinued starting 12/04/2020 [place], [place] Comment on above: Every 4hr until disc ontinued starting 12/04/2020 End: 12-04-2020 EKG 12 Lead EKG 12 Lead ECG Routine One Time for 1 Occurrences starting 12/04/2020 until 12/04/2020 [place], [place] Comment on above: One Time for 1 Occur rences starting 12/04/2020 until 12/04/2020 End: 07-05-2022 EKG 12 Lead EKG 12 Lead ECG Routine One Time for 1 Occurrences starting 07/05/2022 until 07/05/2022 [facility] [employer] Phone: Comment on above: One Time for 1 Occur rences starting 07/05/2022 until 07/05/2022 End: 07-19-2022 INITIATE PACU OXYGEN THERAPY PROTOCOL Initiate PACU Oxygen Therapy Protocol Respiratory Care Routine Continuous until discontinued starting 07/19/2022 [employer] Phone: Comment on above: Continuous until dis continued starting 07/19/2022 Intermittent pulse oximetry Pulse Oximetry Spot Check Respiratory Care Routine As Needed until discontinued starting 12/13/2020 [employer] [place] Comment on above: As Needed until disc ontinued starting 12/13/2020 End: 12-13-2020 IR ANGIOGRAM CAROTID C EREBRAL BILATERAL IR ANGIOGRAM CAROTID C EREBRAL BILATERAL Imaging Routine Once for 1 Occurrences starting 12/13/2020 until 12/13/2020 [facility] [place] Comment on above: Once for 1 Occurrenc es starting 12/13/2020 until 12/13/2020 IR ANGIOGRAM CAROTID C EREBRAL BILATERAL [facility] [place] End: 03-26-2023 Lipid, Fasting [employer] Phone: Comment on above: 1 Occurrences starti ng 03/26/2023 until 03/26/2023 End: 12-17-2020 Magnesium [Mass/Vol] Magnesium Lab Routine Daily for 2 Weeks starting 12/04/2020 until 12/17/2020, 8 completed [employer] [place] Comment on above: Daily for [address] arting 12/04/2020 until 12/17/2020, 8 completed Oxygen therapy [[facility] Data Set] [facility] [place] Comment on above: Daily until disconti nued starting 12/04/2020 Daily until disconti nued starting 12/13/2020 End: 03-26-2023 PSA screening [employer] Phone: Comment on above: 1 Occurrences starti ng 03/26/2023 until 03/26/2023 Spirometry panel Incentive nereyda metry Respiratory Care Routine Every 2hr while awake until discontinued starting 07/19/2022 [employer] Phone: Comment on above: Every 2hr while awak e until discontinued starting 07/19/2022 Surgical Pathology Surgical Path ology Lab Routine Complex regional pain syndrome type 1 of left upper extremity Release Upon Ordering for 1 Occurrences starting 07/19/2022 [employer] Phone: Comment on above: Release Upon Orderin g for 1 Occurrences starting 07/19/2022 End: 07-19-2022 SURGICAL PATHOLOGY REPORT SURGICAL PATHOLOGY REPORT Lab Routine Once for 1 Occurrences starting 07/19/2022 until 07/19/2022 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 [employer] Phone: Comment on above: Once for 1 Occurrenc es starting 07/19/2022 until 07/19/2022 Problems Active Problems Problem Classification Problem Date Documented Date Episodic/Chronic Acute cerebrovascular disease (20 sources) Hemorrhage into subarachnoid space of neuraxis; Translations: [Non-aneurysmal perimesencephalic subarachnoid hemorrhage] Onset: 1 Resolved: 3 12-03-2020 Chronic Disorders of lipid metabolism (3 sources) Hyperlipidemia; Translations: [Hyperlipidemia, unspecified] Onset: 3 Chronic Essential hypertension (3 sources) Essential hypertension; Translations: [Essential (primary) hypertension] Onset: 3 Chronic Fluid and electrolyte disorders (2 sources) Hyperkalemia; Translations: [Hyperkalemia] Onset: 3 Episodic Other nervous system disorders (4 sources) Complex regional pain syndrome type I of left upper limb; Translations: [Complex regional pain syndrome I of left upper limb] Onset: 3 Chronic Other nervous system disorders (1 source) Complex regional pain syndrome I of left upper limb; Translations: [Complex regional pain syndrome i of left upper limb] Onset: 2 Chronic Other nervous system disorders (1 source) Acute postoperative pain; Translations: [Other acute postprocedural pain] Episodic Spondylosis; intervertebral disc disorders; other back problems (1 source) Sciatica; Translations: [Sciatica of left side] Episodic Past or Other Problems Problem Classification Problem Date Documented Date Episodic/Chronic Complication of device; implant or graft (2 sources) 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; Translations: [Other mechanical complication of implanted electronic neurostimulator of spinal cord electrode (lead), subsequent encounter] Onset: 08-31-2022 Episodic Other and unspecified benign neoplasm (7 sources) Multiple benign melanocytic nevi ; Translations: [Melanocytic nevi, unspecified] Onset: 09-01-2021 09-01-2021 Episodic Other circulatory disease (7 sources) Telangiectasia of skin of face; Translations: [Nevus, non-neoplastic] Onset: 09-01-2021 09-01-2021 Episodic Other skin disorders (7 sources) Actinic keratosis; Translations: [Actinic keratosis] Onset: 09-01-2021 09-01-2021 Episodic Other skin disorders (7 sources) Lentiginosis; Translations: [Other melanin hyperpigmentation] Onset: 09-01-2021 09-01-2021 Episodic Other skin disorders (7 sources) Seborrheic keratosis; Translations: [Other seborrheic keratosis] Onset: 09-01-2021 09-01-2021 Episodic Procedures Date Procedure Procedure Detail Performing Clinician Start: 03-30-2023 Basic metabolic pane l calcium total Mehreen Magdalena Olivarez PA-C Work Phone: Start: 03-26-2023 Blood count complete auto&auto difrntl wbc Baljinder MARSHALL Work Phone: Start: 08-31-2022 End: 08-31-2022 Mri brain brain stem w/o w/contrast material Carolyn Joseph MD Work Phone: Start: 08-31-2022 CREATININE W/GFR POI NT OF CARE Carolyn Joseph MD Work Phone: Start: 07-19-2022 Fluoroscopy during operation [employer] Work Phone: Start: 07-05-2022 Antibody screen Stvz 2 Start: 07-05-2022 Blood typing serologic abo NxTherad DO Work Phone: Start: 07-05-2022 Electrolyte panel Alin Hernandez MD Work Phone: Start: 07-05-2022 Ecg routine ecg w/le ast 12 lds i&r only Mauricio MARSHALL Work Phone: Start: 09-06-2021 Ct angiography head w/contrast/noncontrast Carolyn Joseph MD Work Phone: Start: 03-08-2021 Ct angiography head w/contrast/noncontrast Rana H Rodrigue Work Phone: Start: 12-22-2020 Ct lumbar spine w/o contrast material Geoff Lyoncaleb Work Phone: Start: 12-13-2020 Assay of magnesium Coli emely Hartley Work Phone: Start: 12-13-2020 Basic metabolic pane l calcium total Rana H Rodrigue Work Phone: Start: 12-13-2020 Blood count complete auto&auto difrntl wbc Rana H Rodrigue Work Phone: Start: 12-12-2020 Assay of magnesium Coli n Bacilio Hartley Work Phone: Start: 12-12-2020 Basic metabolic pane l calcium total Rana H Rodrigue Work Phone: Start: 12-12-2020 Blood count complete auto&auto difrntl wbc Rana H Rodrigue Work Phone: Start: 12-11-2020 Assay of magnesium Coli emely Hartley Work Phone: Start: 12-11-2020 Basic metabolic pane l calcium total Rana H Rodrigue Work Phone: Start: 12-11-2020 Blood count complete auto&auto difrntl wbc Rana H Rodrigue Work Phone: Start: 12-10-2020 Assay of magnesium Coli emely Hartley Work Phone: Start: 12-10-2020 Basic metabolic pane l calcium total Rana H Rodrigue Work Phone: Start: 12-10-2020 Blood count complete auto&auto difrntl wbc Rana H Rodrigue Work Phone: Start: 12-09-2020 Transcranial doppler stdy intracranial art compl Rana H Rodrigue Work Phone: Start: 12-09-2020 Assay of magnesium Coli emely Hartley Work Phone: Start: 12-09-2020 Basic metabolic pane l calcium total Rana H Rodrigue Work Phone: Start: 12-09-2020 Blood count complete auto&auto difrntl wbc Rana H Rodrigue Work Phone: Start: 12-08-2020 Assay of magnesium Coli n Bacilio Hartley Work Phone: Start: 12-08-2020 Basic metabolic pane l calcium total Rana H Rodrigue Work Phone: Start: 12-08-2020 Blood count complete auto&auto difrntl wbc Rana H Rodrigue Work Phone: Start: 12-07-2020 Transcranial doppler stdy intracranial art compl Edith Dominguez Work Phone: Start: 12-06-2020 Echo tthrc r-t 2d w/wom-mode compl spec&colr d Xochitl Reeves Work Phone: Start: 12-05-2020 LAB SCANNED REPORT Hpf Scanning Start: 12-05-2020 Assay of magnesium Coli n Bacilio Hartley Work Phone: Start: 12-05-2020 Basic metabolic pane l calcium total Xochitl Reeves Work Phone: Start: 12-05-2020 Blood count complete auto&auto difrntl wbc Xochitl Reeves Work Phone: Start: 12-04-2020 Slctv cath carotid/i nnom art angio intrcranl art Osama O Zaidat Work Phone: Start: 12-04-2020 Assay of magnesium Coli n Bacilio Hartley Work Phone: Start: 12-04-2020 Assay of troponin quantitative Keo Hartley Work Phone: Start: 12-04-2020 Basic metabolic pane l calcium total Keo Ribera Odilia Work Phone: Start: 12-04-2020 Blood count complete automated Keo Ribera Odilia Work Phone: Start: 12-04-2020 Hemoglobin glycosylated a1c Keo Hartley Work Phone: Start: 12-04-2020 Lipid panel Keo Carvalho eifidel Work Phone: Start: 12-03-2020 Speech and language therapy regime Keo Hartley Work Phone: Start: 12-03-2020 Drug screen class list a Keo Hartley Work Phone: Start: 12-03-2020 Basic metabolic pane l calcium total Mathieu Perla Work Phone: Start: 12-03-2020 Blood count complete auto&auto difrntl wbc Mathieu Perla Work Phone: Start: 12-03-2020 Prothrombin time Mathieu Perla Work Phone: Start: 12-03-2020 Thromboplastin time partial plasma/whole blood Mathieu Perla Work Phone: Start: 12-03-2020 COVID-19 [place]ieu [place] Work Phone: Start: 12-03-2020 Ct angiography neck w/contrast/noncontrast Pavan Howell Work Phone: Start: 12-03-2020 Ct head/brain w/o co ntrast material Pavan Looney Dante Work Phone: Start: 12-03-2020 ANION GAP (CALC) POC Azar Lal Work Phone: Start: 12-03-2020 Blood count hemoglobin Geraldo Lal Work Phone: Start: 12-03-2020 CALCIUM, IONIC (POC) Azar Lal Work Phone: Start: 12-03-2020 Chloride [Moles/Vol] Azar Lal Work Phone: Start: 12-03-2020 CREATININE W/GFR POI NT OF CARE Geraldo Lal Work Phone: Start: 12-03-2020 Gluc bld gluc mntr d ev cleared fda spec home use Geraldo Lal Work Phone: Start: 12-03-2020 LACTIC ACID,POINT OF CARE Geraldo Lal Work Phone: Start: 12-03-2020 Potassium [Moles/Vol] D bianka Lal Work Phone: Start: 12-03-2020 Sodium [Moles/Vol] Dl Lal Work Phone: Start: 12-03-2020 VENOUS BLOOD GAS, PO INT OF CARE Geraldo Lal Work Phone: Results Test Name Value Interpretation Reference Range Facility Coding Summaryon 03-24-2024 Coding Summary HTMLBase 64 YasoprygIFl2nPk+PGhl YWQ+VI7XHYNvE78npJPm tP6hG1POQYvDMwthJOWZ QNfJKtEjbiDqVV7heLPy ZXJu IC8+NS5hJOKfDcyovCNi v2J2jRK1C11rue1lSUmh yMF8DXYsPpTzcxjgq0bg vLf1LZtdVcpyOrLv AWHgoZ82DFW8iD16Sk71 sMJuzIOjm9vsxHs0FhYv QZHgAVT8dLktAKdgb8Hm IIMwJ20ivBSih8X4 IGNvbGxhcHNlOyBlbXB0 aS7uAWyzaclss1rulzus Suh5iv43pCCau5V3sVT8 E8DnykQ7SUYshDQl FpeypBOMiE8wvgllz6yz lvuxZkSkYDXmADt4BMg0 ORGbjTvmUdXiRV01XRZ8 OBSdztJnM4CwTEEc yBexYuY0e1K7Uq7LT4IH ZrnzK2KAJECYZGfvnTH+ MP40qs43R6AsEqpoZnz8 OKLgYBJ4cUJ0rD9p SUBmXZfbj5C7eHZ1Z7Fq wqMrzk2as3sbHRObWCfx K50axBGqf7X5WFGmfHV6 TWYlvDztPlYfiF34 Oyc+JLBvoMwad4PzVrom i8jij8murLt0PisnGGBf kpGpsGawZXM5r8TzDt8e OTZeoVZ6tUF9iF8w HhIsOzX4LAtuW329GiCh zFUsOxxwY23cX4CdkQS+ FFZbHse3ORXylWplFJ5k A6IzCVUritdiiFJg gYmoUK0hOMUvmrttTZHi aF7tJPIgM0h3QhGsBzE7 NSmsC2OjHQRsccigGy27 zT8fEaNkOlC6YIoi U0BnnaQ6OFZztDYjNSgg GHO2J00xu8X0EJPeVCFf XYH2yND4dZ3cwImvnxdk bGVmdDsgdmVydGlj ZMhzKJhdI330HFRjpYoe PkNvZGluZyBEYXRlOiAg MDQvMzAvMjAyNDwvdGQ+ FVScBKD4qZkwERRw gGUpHCjfYj2mzVavyQas BG0rNJNmdaucHDDgeS5w NYPkoWIoqKmcZF4hSEQk rxkxl162CuTdHAJ7 MBQxqOSwT5LzjK3eRzCs PXXlMSXjY6OjlNSeUFzi U936EOgbLxJ5SKUpuzLw Z2DpEUIsjFajUjR4 q2R8Cg8Bu5SpnkkwA5Kz oCLzTvXaSiumMEw2F0At PjwvdHI+JW33AQXtXW35 NCp5IMX5eNbqBOvp CLEjI3IgoY2tAqYrHMXt ZGRkOyc+PHRhYmxlIHdp ZHRoPScxMDAlJyBzdHls BY7mLk1pNOGjOGRt jLryuEIgYuHgd4vdLKWv DOmnWV5loKgyC2IxiSQ6 INKlb8p4Of17J17wH9Po dXA+WWMtxOW2wQM8 fO9yBdEuZyJ4BAyzN471 HuBftOTrMwzce2tcw6rn oHg4HbS3HXWdgcThvUog LCT2k9PnJr31D73f IHdpZHRoPSIxNSUiIHZh xOiwfe5uvW1xTb7+PGNv jCY1zLQ7aA2dWzNySwN0 IPfuF567QgAuoZZd Knkmn5kiz7cbhQq1JvBk JJDpcqSzbVhdPDL1p4Pl Zs63G1KbjFevl1UhQez7 fq78fUHes8E1lAI6 R2LrPVQlhkazzJCtjViw VF5zZQRxwclcOTSfjA1l TBRxS4k6JoMtStB4MFtu V4NtilI0LBIbtAVv BGKxcRGIaB5zrocro0hr izhoFgZyYHNzLBd1DMt3 QVCojWqdBdDtXGA7YnV6 VLO7xIDzwD8aeLuy dddgsR6jFnb+XJL3nKVq sXQLWX4aMkaonCG+PHRk LMM9oZrvFItwSXVwuG8i RFNhO2a0EwThBsI9 IBfoG2RijtU5NGFwmGLk QQLjfYVXbX3nnzzfi8cm tuuzElAvRAQeJKc4SKd9 LWFsaWduOiBsZWZ0 FpA7EAI8lXDsoR0lbBtc mmjxsT4eUno+QmlydGgg NZG8BOk7J3BnVah7BAXd rAubQO3qvATqHCwu Fi3tbCkxbEnaJN9wWGCq xexey604HnLjn9yvZNRy hRPzMNhzGZS8Q65jo7X0 LFYiHUMxLJI6fHN0 iD2fgAelvxexsHPfpLhj whRdySnkRLohGYtnW552 EQAhqGlbIdRrCAr3W6Qi Knc2SPYywQfvLM1w eUAgQNxiGv3yyFtreDfg NI6pMGNsivtof357ItHj h1qfHFQvgDWiABjlFNC1 S42rq2G4TRXjJSVt NDG8dSA8jH8taAsomxaq bGVmdDsgdmVydGljYWwt SGzeD778LXTseNhePyAw oFo0P5OjSfw7RKCv yCplWQ7lyNHiHPgnTn5g pOmejKqfPD8aBWIlukub m318LrFpk1erCRAohGFu PQlmGQO1M76gc5F1 HLZeSZHiZXZ5cXR1oG5g bGlnbjogbGVmdDsgdmVy mZkqCOzuESefT877LDTo cDsnPlBhdGllbnQg VRbsVHo7V5MmObwxfKW+ BS45OSFqEX75kNQgvKEu b1exsUb6KlPkVANwZRU0 tIldWIswl4FaZDKe A91lhTCyz5D9GSCdyMka cLOxHoZvaIE5uQ1rRBnu fwaib1xejdyvJndze7us fg55pY07I75lOXln ZHRoPSIzMCUiIHZhbGln kq9apL9nLi3+PGNvbCB3 oMS1sO7iKHMaGrQ6IVzy O616ToYeeTXlGwht d7kbi4kluXk0ZsU5CWVy gcCvkRxdGQD0y2WpCi45 W70fIBqkCVGvQLWuTJSl XQUbfZcrde0xwA1b Ii8+QNCuqSQ7mZN7fV4x OrBdGpI2ABvwD681EnEf tLEiPdchA06cX0VhuKC+ BEGtVef2XGCbiQru EK6bcLJcFVqwZq0zNBB0 HrRyNvJwQFgdC7ObEVHl chtbzskhzXP6WAHqCTQc uD80Tc3dgBvqZIJj fFAYxW7npqbhf0zacjpb NpCbYXSeMJp1YHq3OCXk kUzzMaBvULZ2MoB9YWT7 dGNfcO4xhKizpkiz xY3zX9BtKEPdnuplIj56 jZ8wTgMfFfR4GTvmXtg+ VFJPVVQsIFBISUxMSVAg DUaOCC73L9FpDai5 PUAnuRhrUG2wdDFwISck Ap1glBfuuQugOG7tVTFt ihsfATPueG7oPFSqlXOt cIuzCK2dOGYjdbep w189LnUvHTU5AIRgfWFq U6GreH9uFdCeLDKaSXAl G2McaPPlQSoqN505OXlv RlE6YSTbzxHrH6Xc OOVyqDbtTwP0x7X7Tu6i PW3rTx1kOLR6VH10FG80 kPFtj6E3lCL3G3TaXDDc cgaafubvpCD4EBBf RMMldU61oDEoNHdqCi8t i9Y7v400AHIoAKScdK81 No1ztIhhZEZhoCEFyR5h tyazv1tedtogTmVi PQCkZMh5NCu3AEDpgJeg OcMzFYE9HzK0TJJ0sUXv oT8agTkewkncyF6kTfg+ YXRwLNKsirM3J8Mw Pwv6WHXjhSlxXT6tfKQy RFtcSb5npAcsdNyuKO6p AVVymwmoTNIsgR0uHKAz qXHeoQfjFV0mRKGi ihhey422DjDqBXY1SBDk cFStW4TlpL4iTcVlMKGn TXXiR1AovIOpYTnvM730 UUpeNuP5XTJfsmCe I9YsZRJhkSllKmS9a0G1 Tb8CJPbRCC45SH49rYBe o5D3hOG6M2MvZFOajutz mmmerIP6LTTuTYFp dR34sAWqSKklYf9ya2R2 u345UVZyDWWojF63Yn8z zYkbEWWcbCKOjN9gfrwn u6pvnardZrQhROMw TCj1IAj7PZBzyJihJwSa RHA9KnP2OMI3cTFigB5v cUftwthymW1zBfk+RW1l nmalwgR8BK08FP31 I9XkRzgcuIHkaFB+PHRh YmxlIHdpZHRoPScxMDAl BaDotZayKX5zGc6lZKEm LWNvbGxhcHNlOiBj u0itJAKcRYxwEB8bpEyo R9HvhVE2HZXwv5w2Dv57 E97mM6XkbZI+PGNvbCB3 wUT5wL5dFgJdCxC3 AGyaF484UxWhmQZoBold e9orq9nszAc9SrFhTAGa wiHarIbgVWM8u3JmLj17 O00lKMsbWSXpCWQp WBJuAYOxaEdlpr4rdI0s Ii8+OAZfxHQ5rMC6tR8j HyJdQtI8CCicT904ZnDe nGPwHkunR54kH4Zq dXA+NUMtPeq8KFWkoWtf CH8kxFHwFDxvMh0fJTE8 BdWjNcBcBZukB8HtSUIp igdiqzyoiZS8BMEv YEPczO72Nk5pwVjnDl1f YOFdUYM4YSTulGIkB8Ca jX3wLlYbIZWcMMWwJ1Dw aGTgAAgqO812PVaj AiB4JFEjssJuE7GwZBDa oSixZhR4i9K0Id9LcWqh iYZaLZ5iAqMhAUl0I9Lp Mte3PBJygLosUU5n jNGqTWoyDd7ptVsdjScl AJ3rXFFtvmwez244MjKn o2amCNXeoRWjJOpePVM8 X03lo5U1ZHMbGKRo KZK3zYU5gC3rsCrvvsek bGVmdDsgdmVydGljYWwt JUymZ657XTUwyEbjQhBS Hoc3E2VlKhv2YYNg vKenLE8amVLhIBomEs5v yWqakVgvKD4fVMFfzbnf h451PpUbb5ebPGDorXSm SWptYQZ4X76ev2I8 DCCsUSSsNVI1dKE2jO4o bGlnbjogbGVmdDsgdmVy oCewVYqtMOnvN968FRDx fCbvEe9TDms3N6Wh Dyv5EHXkgCjhYC8xePGi WOjtYd8dtQdvnJjnZS8j TODljgkft256FqByg7yo IDEwcHQgVGltZXM7 W81ci8P6CBLzTNNbDBP5 gIV3fP5hfGaewgjupGDi dDsgdmVydGljYWwtYWxp M135NOZsvSymKoIj eWVyOjwvdGQ+NU25wa24 E1JwYphbDxm9KTUiHPP6 oSV1dE0xSJPeISnha8O5 mME6S5FjgiTodj9a b2x (more content not included)... [facility] CT Head or Brain w/o Contras ton 03-17-2024 CT Head or Brain w/o Contrast CT HEAD WITHOUT CONTRAST. INDICATION: Fall. COMPARISON: None available for comparison TECHNIQUE: Axial CT head images from the skull base to the vertex without IV contrast were acquired. Coronal and sagittal reformats were also obtained. FINDINGS: EXTRA-AXIAL SPACE: Age-appropriate ventricles. No acute extra-axial collection. No extra-axial mass. No midline shift. CEREBRUM: No focal abnormality. No CT evidence of acute large territorial cortical infarct, hemorrhage or mass effect. CEREBELLUM: No focal abnormality. No CT evidence of acute infarct, hemorrhage or mass effect. BRAINSTEM: No focal abnormality. No CT evidence of acute infarct, hemorrhage or mass effect. EXTRACRANIAL STRUCTURES. The paranasal sinuses are clear. Mastoid air cells are clear. Orbits are unremarkable. No discrete pituitary mass. Intact calvarium. There is an incompletely visualized metallic structure in the foramen magnum. IMPRESSION: No acute intracranial abnormality. Final Dictated by: Wild [place] MD Dictated DT/TM: 03/17/24 4:29 Signed (Electronic Signature): Wild [place] MD 03/17/24 4:30 pm Technologist: Vianey MACHADO [facility] CT Spine Cervical w/o Contra ston 03-17-2024 CT Spine Cervical w/o Contrast CT CERVICAL SPINE WITHOUT IV CONTRAST. INDICATION: Fall. COMPARISON: There are no prior studies available for comparison. TECHNIQUE: CT of the cervical spine without contrast. Orthogonal sagittal and coronal multiplanar reformatted images were created. . FINDINGS: BONY ALIGNMENT: There is normal cervical lordosis. No spondylolisthesis. VERTEBRAL BODY: No acute fracture of the cervical spine. There is mild multilevel degenerative spondylosis. CENTRAL CANAL/NEURAL FORAMINA: Limited evaluation of the upper central canal. No high-grade central canal or neuroforaminal stenosis. Intrathecal spinal lead noted.. SOFT TISSUE: No mass or inflammation. UPPER LUNGS: No acute findings. IMPRESSION: No acute cervical spinal fracture. Final Dictated by: Wild [place] MD Dictated DT/TM: 03/17/24 4:31 Signed (Electronic Signature): Wild [place] MD 03/17/24 4:32 pm Technologist: Vianey MACHADO [facility] ED Clinical Summaryon 2023 ED Clinical Summary [facility] - Emergency Department [address] [place], [place] [id number] ED Clinical Summary PERSON INFORMATION Name: ANIBAL DAMON Age: 53 Years Sex: MALE : 1970 MRN: Acct#: Visit Reason: Neck pain; Closed head injury without LOC; FALL- HEAD INJURY Arrival: 03/17/2024 15:37:09 Discharge: 03/17/2024 17:07:00 LOS: 000 01:30 Check In: 03/17/2024 15:37:09 Checkout:03/17/2024 17:07:00 Address: [address] [place] [id number] PCP: Provider, None PROVIDER INFORMATION Provider Role Assigned Unassigned Nicole Jean DICTATING MACHINE TYPIST ED PA 03/17/2024 15:42:25 [place] Tinajero NEON INSTALLER Nurse 03/17/2024 15:44:39 VITALS INFORMATION Vital Sign Triage Latest Temperature Tympanic Temperature Temporal Artery Pulse Rate O2 Sat 98 % 98 % Respiratory Rate 16 br/min 16 br/min Blood Pressure /105 mmHg /105 mmHg MEDICAL INFORMATION Medications Given: Allergy Information: codeine PHYSICIAN DOCUMENTATION DISCHARGE INFORMATION: Discharge Disposition: Home Discharge Location: Home PATIENT EDUCATION INFORMATION Instructions: Head Injury, Adult, Bwzf-[id number] Follow-Up: With: Address: When: Provider, None [address] [place] [address] Within 3 to 5 days Comments: Follow-up with primary care in 3 to 5 days. If symptoms worsen or progress return to the emergency room. DIAGNOSIS: 1:Head injury due to trauma; 2:Blurred vision Patient Understands: Yes - Patient/family/careg iver verbalizes understanding of instructions given Comment: Normal [facility] ED Patient Summaryon 024 ED Patient Summary [facility] - Emergency Department [address] [place] [id number] PATIENT DISCHARGE INSTRUCTIONS Patient Information Name: ANIBAL DAMON Age: 53 Years Date of : 1970 Reason For Visit: Neck pain; Closed head injury without LOC; FALL- HEAD INJURY Arrival Time: 03/17/2024 15:37:09 Primary Care Physician: Maria T, Cheikh Attending Physician: Cheng Velarde MD Comment: Visit Diagnosis: Diagnoses This Visit Blurred vision (H53.8) Closed head injury without LOC ([id number]) Head injury due to trauma (S09.90XA) Neck pain ([id number]) The Pharmacy at [facility] is open Saturday through Saturday from 9A to 6P and Saturday and Saturday from 9A to 5P Prescription Information: If you have been given a prescription for narcotics, seek immediate medical attention if you have any difficulty breathing or any sudden status changes such as confusion and sleepiness. If you or anyone you know is experiencing suicidal thoughts, mental health, alcohol and/or drug addiction problems; contact the [facility] 17/06 Crisis Hotline -Text 2WKJP ed 962194. If you received any narcotics, sedation, or any other medication that causes drowsiness for the next 24 hours, unless otherwise directed: ? Do not drive a car. ? Do not operate machinery such as power tools, lawn mowers, drills, sewing machines, or stoves ? Avoid alcoholic beverages and drugs for allergies, nerves, or sleep ? Do not make important personal or business decisions or sign any legal documents With: Address: When: Provider, None [address] [place] [address] Within 3 to 5 days Comments: Follow-up with primary care in 3 to 5 days. If symptoms worsen or progress return to the emergency room. Medication Information: The exam and treatment you received today in the [facility] Emergency Department were for an urgent problem and are not intended as complete care. It is important for you to follow up with a doctor, nurse practitioner, or physician?s data analysis assistant for ongoing care. If your symptoms become worse or you do not improve as expected and you are unable to reach your usual health care provider, you should return to the Emergency Department, we are available 24 hours a day. For those patients who have received Radiology results, the interpretation of your X-ray as given to you by our Emergency Department physician is only a preliminary report. The Radiologist will review your films and if there is a change in the diagnosis you will be notified by phone. Please make sure you have provided a working phone number so we can reach you if necessary. In the event that you had a lab culture while you were a patient in the Emergency Department, you will be notified by phone if there is a need to change your antibiotic. Please make sure you have provided a working phone number so we can reach you if necessary. [facility] Emergency Department has provided you with a complete list of medications post discharge. Please inform your applied computer science professor/provider of your visit and for further instruction on these medications. Any specific questions regarding your chronic medications and dosages should be discussed with your primary care physician(s) and/or pharmacist. Additional medications on your home medication list not specifically addressed. Please contact the ordering physician if you have questions about these medications. amLODIPine (amLODIPine 10 mg oral tablet) take 1 tablet by mouth once daily. atorvastatin (atorvastatin 20 mg oral tablet) citalopram (citalopram 10 mg oral tablet) 1 tab(s) Oral (given by mouth) every day. lisinopril (lisinopril 10 mg oral tablet) Visit Information Allergies: Substance Reaction Symptoms Type Comments codeine Drug Vital Signs: Vitals and Measurements this Visit (last charted value for your 03/17/2024 visit) Vital Signs This Visit Temperature Oral: 36.6 DegC Heart Rate Monitored: 64 bpm Respiratory Rate: 16 br/min Systolic Blood Pressure: 179 mmHg Diastolic Blood Pressure: 105 mmHg SpO2: 98 % Oxygen Therapy: Room air Measurements This Visit Height/Length Measured: 175 cm Weight Measured: 72.57 kg Weight Dosin.570 kg Body Mass Index: 23.7 kg/m2 Problems List: Problem Onset Comments No Problems found Patient Education Head Injury, Adult There are many types of head injuries. They can be as minor as a small bump. Some head injuries can be worse. Worse injuries include: ? A strong hit to the head that shakes the brain back and forth, causing damage (concussion). ? A bruise (contusion) of the brain. This means there is bleeding in the brain that can cause swelling. ? A cracked skull (skull fracture). ? Bleeding in the brain that gathers, gets thick (makes a clot), and forms a bum (more content not included)... Normal [facility] Basic Metabolic Panelon 05-0 Anion gap [Moles/Vol] 11 mmol/L 9 - 17 mmol/L [facility] Calcium [Mass/Vol] 9.0 mg/dL 8.6 - 10. 4 mg/dL [facility] [employer] Chloride [Moles/Vol] 106 mmol/L 98 - 10 7 mmol/L [facility] CO2 [Moles/Vol] 26 mmol/L 20 - 31 mmol/L [facility] Creatinine [Mass/Vol] 0.82 mg/dL 0.70 - 1.20 mg/dL [facility] GFR/1.73 sq M.predicted MDRD (S/P/Bld) [Vol rate/Area] - [facility] [facility] [employer] [facility] Comment on above: These results are not intended for use in patients <18 years of age. eGFR results are calculated without a race factor using the 2020 CKD-EPI equation. Careful clinical correlation is recommended, particularly when comparing to results calculated using previous equations. The CKD-EPI equation is less accurate in patients with extremes of muscle mass, extra-renal metabolism of creatine, excessive creatine ingestion, or following therapy that affects renal tubular secretion. Glucose [Mass/Vol] 103 mg/dL High 70 - 99 mg/dL [facility] Interpretation and review of laboratory results Abnormal [facility] Potassium [Moles/Vol] 4.5 mmol/L 3.7 - 5.3 mmol/L [facility] Sodium [Moles/Vol] 143 mmol/L 135 - 144 mmol/L [facility] Urea nitrogen [Mass/Vol] 15 mg/dL 6 - 20 mg/dL [facility] Basic Metabolic Profon 03-30 Anion gap [Moles/Vol] 11 mmol/L Normal 9-17 [facility] Comment on above: Performed By: #### B MP #### [facility] [address] [place] [address] Account Underwriter: German Nguyen DO Calcium [Mass/Vol] 9.0 mg/dL Normal 8.6-10.4 [facility] Comment on above: Performed By: #### B MP #### [facility] [place] [address] Account Underwriter: German Nguyen DO Chloride [Moles/Vol] 106 mmol/L Normal 98-107 [facility] Comment on above: Performed By: #### B MP #### [facility] [place] [address] Account Underwriter: German Nguyen DO CO2 [Moles/Vol] 26 mmol/L Normal 20-31 [facility] Comment on above: Performed By: #### B MP #### [facility] [place] [address] Account Underwriter: German Nguyen DO Creatinine [Mass/Vol] 0.82 mg/dL Normal 0.70-1.20 [facility] Comment on above: Performed By: #### B MP #### [facility] [place] [address] Account Underwriter: German Nguyen DO GFR/1.73 sq M.predicted among non-blacks MDRD (S/P/Bld) [Vol rate/Area] mL/min/{1.73_m2} Normal >60 [facility] Comment on above: Result Comment: These results are not intended for use in patients <18 years of age. eGFR results are calculated without a race factor using the 2020 CKD-EPI equation. Careful clinical correlation is recommended, particularly when comparing to results calculated using previous equations. The CKD-EPI equation is less accurate in patients with extremes of muscle mass, extra-renal metabolism of creatine, excessive creatine ingestion, or following therapy that affects renal tubular secretion. Performed By: #### B MP #### [facility] [place] [address] Account Underwriter: German Nguyen DO Glucose [Mass/Vol] 103 mg/dL High 70-99 [facility] Comment on above: Performed By: #### B MP #### [facility] [address] [place] [address] Account Underwriter: German Nguyen DO Potassium [Moles/Vol] 4.5 mmol/L Normal 3.7-5.3 [facility] Comment on above: Performed By: #### B MP #### [facility] [address] [place] [address]. [place] [address] Account Underwriter: German Nguyen DO Sodium [Moles/Vol] 143 mmol/L Normal 135-144 [facility] Comment on above: Performed By: #### B MP #### [facility] [address] [place] [address]. [place] [address] Account Underwriter: German Nguyen DO Urea nitrogen [Mass/Vol] 15 mg/dL Normal 6-20 [facility] Comment on above: Performed By: #### B MP #### [facility] [address] [place] [address]. [place] [address] Account Underwriter: German Nguyen DO Comp Metabolic Profon 2022 Albumin [Mass/Vol] 4.0 g/dL Normal 3.5-5.2 [facility] Comment on above: Performed By: #### C DP, LIPRF, CP, PSAS #### [address] [address] Account Underwriter: Sahil Tanner MD Albumin/Glob Ratio 1.5 Normal 1.0-2.5 [facility] Comment on above: Performed By: #### C DP, LIPRF, CP, PSAS #### [address] [address] Account Underwriter: Sahil Tanner MD Alkaline Phos 61 U/L Normal 40-129 [facility] Comment on above: Performed By: #### C DP, LIPRF, CP, PSAS #### [address] [address] Account Underwriter: Sahil Tanner MD ALT [Catalytic activity/Vol] 40 U/L Normal 5-41 [facility] Comment on above: Performed By: #### C DP, LIPRF, CP, PSAS #### [address] [address] Account Underwriter: Sahil Tanner MD Anion gap [Moles/Vol] 19 mmol/L High 9-17 [place] Comment on above: Result Comment: INTE RPRET RESULTS WITH CAUTION. SPECIMEN QUALITY QUESTIONED. Performed By: #### C DP, LIPRF, CP, PSAS #### [facility] [address] [place] [address] Account Underwriter: Sahil Tanner MD AST [Catalytic activity/Vol] 58 U/L High <40 [facility] Comment on above: Performed By: #### C DP, LIPRF, CP, PSAS #### [facility] [address] [place] [address] Account Underwriter: Sahil Tanner MD Bilirubin [Mass/Vol] 0.3 mg/dL Normal 0.3-1.2 [facility] Comment on above: Performed By: #### C DP, LIPRF, CP, PSAS #### [address] [address] Account Underwriter: Sahil Tanner MD Calcium [Mass/Vol] 9.2 mg/dL Normal 8.6-10.4 [facility] Comment on above: Performed By: #### C DP, LIPRF, CP, PSAS #### [address] [address] Account Underwriter: Sahil Tanner MD Chloride [Moles/Vol] 104 mmol/L Normal 98-107 [facility] Comment on above: Performed By: #### C DP, LIPRF, CP, PSAS #### [address] [address] Account Underwriter: Sahil Tanner MD CO2 [Moles/Vol] 16 mmol/L Low 20-31 [facility] Comment on above: Result Comment: INTE RPRET RESULTS WITH CAUTION. SPECIMEN QUALITY QUESTIONED. Performed By: #### C DP, LIPRF, CP, PSAS #### [address] [address] Account Underwriter: Sahil Tanner MD Creatinine [Mass/Vol] 0.86 mg/dL Normal 0.70-1.20 [place] Comment on above: Performed By: #### C DP, LIPRF, CP, PSAS #### [address] [address] Account Underwriter: Sahil Tanner MD GFR/1.73 sq M.predicted among non-blacks MDRD (S/P/Bld) [Vol rate/Area] mL/min/{1.73_m2} Normal >60 [facility] Comment on above: Result Comment: These results are not intended for use in patients <18 years of age. eGFR results are calculated without a race factor using the 2020 CKD-EPI equation. Careful clinical correlation is recommended, particularly when comparing to results calculated using previous equations. The CKD-EPI equation is less accurate in patients with extremes of muscle mass, extra-renal metabolism of creatine, excessive creatine ingestion, or following therapy that affects renal tubular secretion. Performed By: #### C DP, LIPRF, CP, PSAS #### [address] [address] Account Underwriter: Sahil Tanner MD Glucose [Mass/Vol] 62 mg/dL Low 70-99 [facility] Comment on above: Performed By: #### C DP, LIPRF, CP, PSAS #### [address] [address] Account Underwriter: Sahil Tanner MD Potassium [Moles/Vol] 6.1 mmol/L Critically high 3.7-5.3 [facility] Comment on above: Performed By: #### C DP, LIPRF, CP, PSAS #### [address] [address] Account Underwriter: Sahil Tanner MD Protein [Mass/Vol] 6.7 g/dL Normal 6.4-8.3 [facility] Comment on above: Performed By: #### C DP, LIPRF, CP, PSAS #### [address] [address] Account Underwriter: Sahil Tanner MD Sodium [Moles/Vol] 139 mmol/L Normal 135-144 [facility] Comment on above: Performed By: #### C DP, LIPRF, CP, PSAS #### [address] [address] Account Underwriter: Sahil Tanner MD Urea nitrogen [Mass/Vol] 14 mg/dL Normal 6-20 [facility] Comment on above: Performed By: #### C DP, LIPRF, CP, PSAS #### [address] [id number] Account Underwriter: Sahil Tanner MD Lipid Prof, Fastingon 2022 Cholesterol [Mass/Vol] 151 mg/dL Normal <[address] [facility] Comment on above: Result Comment: Cholesterol Guidelines: <200 Desirable 200-240 Borderline >240 Undesirable Performed By: #### C DP, LIPRF, CP, PSAS #### [place] [address] Account Underwriter: Sahil Tanner MD Cholesterol in HDL [Mass/Vol] 65 mg/dL Normal >40 [facility] Comment on above: Result Comment: HDL Guidelines: <40 Undesirable 40-59 Borderline >59 Desirable Performed By: #### C DP, LIPRF, CP, PSAS #### [address] [address] Account Underwriter: Sahil Tanner MD Cholesterol in LDL [Mass/Vol] 76 mg/dL Normal 0-130 [facility] Comment on above: Result Comment: LDL Guidelines: <100 Desirable 100-129 Near to/above Desirable 130-159 Borderline >159 Undesirable Direct (measured) LDL and calculated LDL are not interchangeable tests. Performed By: #### C DP, LIPRF, CP, PSAS #### [address] [address] Account Underwriter: Sahil Tanner MD Cholesterol.total/Chol esterol in HDL [Mass ratio] 2.3 {ratio} Normal <5 [facility] Comment on above: Performed By: #### C DP, LIPRF, CP, PSAS #### [address] [address] Account Underwriter: Sahil Tanner MD Triglyceride,Fasting 51 mg/dL Normal <150 [facility] Comment on above: Result Comment: Triglyceride Guidelines: <150 Desirable 150-199 Borderline 200-499 High >499 Very high Based on AHA Guidelines for fasting triglyceride, August 2012. Performed By: #### C DP, LIPRF, CP, PSAS #### [facility] [address] [place], [place] [phone] Account Underwriter: Sahil Tanner MD PSA, Screeningon 03-28-2023 Prostatic Spec. Ag 0.25 ng/mL Normal <4.1 [facility] Comment on above: Result Comment: The Jb ECLIA assay is used. Results obtained with different assay methods cannot be used interchangeably. Performed By: #### C DP, LIPRF, CP, PSAS #### [facility] [address] [place], [place] [id number] Account Underwriter: Sahil Tanner MD CBC with Auto Differentialon 03-26-2023 Absolute Eos # 0.08 [place] [facility] Absolute Immature Granulocyte [facility] Absolute Lymph # 1.17 [facility] Absolute Leake # 0.52 [facility] RS [facility] Basophils (Bld) [#/Vol] 0.03 10*3/uL [facility] Basophils/100 WBC (Bld) 1 % 0 - 2 % [facility] Eosinophils/100 WBC (Bld) 2 % 1 - 4 % [facility] Hematocrit (Bld) [Volume fraction] 41.2 % 40.7 - 50.3 % [facility] Hemoglobin (Bld) [Mass/Vol] 13.2 g/dL 13.0 - 17.0 g/dL [facility] Immature granulocytes/100 WBC (Bld) 0 % 0 [facility] Interpretation and review of laboratory results Abnormal [facility] Lymphocytes/100 WBC (Bld) 23 % Low 24 - 43 % [facility] MCH (RBC) [Entitic mass] 26.6 pg 25.2 - 33.5 pg [facility] MCHC (RBC) [Mass/Vol] 32.0 g/dL 28.4 - 34.8 g/dL [facility] MCV (RBC) [Entitic vol] 82.9 fL 82.6 - 102.9 fL [facility] Monocytes/100 WBC (Bld) 10 % 3 - 12 % [facility] NRBC Automated 0.0 0.0 per 100 WBC [facility] Platelet distribution width (Bld) [Ratio] 14.9 % High 11.8 - 14.4 % [facility] Platelet mean volume (Bld) [Entitic vol] 9.9 fL 8.1 - 13.5 fL [facility] Platelets (Bld) [#/Vol] 317 10*3/uL [facility] RBC (Bld) [#/Vol] 4.97 10*6/uL 4.21 - 5.7 7 m/uL [facility] RBC (Bld) [#/Vol] ANISOCYTOSIS PRESENT [facility] Segmented neutrophils/100 WBC (Bld) 64 % 36 - 65 % [facility] Segs Absolute 3.20 [facility] WBC (Bld) [#/Vol] 5.0 10*3/uL [facility] CBC with Diffon 03-26-2023 Abs. Basophil 0.03 k/uL Normal 0.00-0.20 [facility] Comment on above: Performed By: #### C DP, LIPRF, CP, PSAS #### [facility] [address] [place] [address] Account Underwriter: Sahil Tanner MD Abs.Imm.Granulocyte <0.03 Normal 0.00-0.30 [facility] Comment on above: Performed By: #### C DP, LIPRF, CP, PSAS #### [facility] [address] [place] [address] Account Underwriter: Sahil Tanner MD Abs.Neutrophil (Seg) 3.20 k/uL Normal 1.50-8.10 [facility] Comment on above: Performed By: #### C DP, LIPRF, CP, PSAS #### [facility] [address] [place] [address] Account Underwriter: Sahil Tanner MD Basophils/100 WBC (Bld) 1 % Normal 0-2 [facility] Comment on above: Performed By: #### C DP, LIPRF, CP, PSAS #### [place] [address] Account Underwriter: Sahil Tanner MD Eosinophils (Bld) [#/Vol] 0.08 10*3/uL Normal 0.00-0.44 [facility] Comment on above: Performed By: #### C DP, LIPRF, CP, PSAS #### [place] [address] Account Underwriter: Sahil Tanner MD Eosinophils/100 WBC (Bld) 2 % Normal 1-4 [facility] Comment on above: Performed By: #### C DP, LIPRF, CP, PSAS #### [place] [address] Account Underwriter: Sahil Tanner MD Erythrocyte distribution width (RBC) [Ratio] 14.9 % High 11.8-14.4 [facility] Comment on above: Performed By: #### C DP, LIPRF, CP, PSAS #### [place] [address] Account Underwriter: Sahil Tanner MD Hematocrit (Bld) [Volume fraction] 41.2 % Normal 40.7-50.3 [facility] Comment on above: Performed By: #### C DP, LIPRF, CP, PSAS #### [place] [address] Account Underwriter: Sahil Tanner MD Hemoglobin (Bld) [Mass/Vol] 13.2 g/dL Normal 13.0-17.0 [facility] Comment on above: Performed By: #### C DP, LIPRF, CP, PSAS #### [address] [address] Account Underwriter: Sahil Tnaner MD Immature granulocytes/100 WBC (Bld) 0 % Normal 0 [facility] Comment on above: Performed By: #### C DP, LIPRF, CP, PSAS #### [address] [address] Account Underwriter: Sahil Tanner MD Lymphocytes (Bld) [#/Vol] 1.17 10*3/uL Normal 1.10-3.70 [facility] Comment on above: Performed By: #### C DP, LIPRF, CP, PSAS #### [place] [address] Account Underwriter: Sahil Tanner MD Lymphocytes/100 WBC (Bld) 23 % Low 24-43 [facility] Comment on above: Performed By: #### C DP, LIPRF, CP, PSAS #### [place] [address] Account Underwriter: Sahil Tanner MD MCH (RBC) [Entitic mass] 26.6 pg Normal 25.2-33.5 [facility] Comment on above: Performed By: #### C DP, LIPRF, CP, PSAS #### [place] [address] Account Underwriter: Sahil Tanner MD MCHC (RBC) [Mass/Vol] 32.0 g/dL Normal 28.4-34.8 [place] Comment on above: Performed By: #### C DP, LIPRF, CP, PSAS #### [place] [address] Account Underwriter: Sahil Tanner MD MCV (RBC) [Entitic vol] 82.9 fL Normal 82.6-102.9 [facility] Comment on above: Performed By: #### C DP, LIPRF, CP, PSAS #### [address] [address] Account Underwriter: Sahil Tanner MD Monocytes (Bld) [#/Vol] 0.52 10*3/uL Normal 0.10-1.20 [facility] Comment on above: Performed By: #### C DP, LIPRF, CP, PSAS #### [address] [address] Account Underwriter: Sahil Tanner MD Monocytes/100 WBC (Bld) 10 % Normal 3-12 [facility] Comment on above: Performed By: #### C DP, LIPRF, CP, PSAS #### [address] [address] Account Underwriter: Sahil Tanner MD Neutrophil (Seg) 64 % Normal 36-65 [facility] Comment on above: Performed By: #### C DP, LIPRF, CP, PSAS #### [address] [address] Account Underwriter: Sahil Tanner MD NRBC Automated 0.0 per 100 WBC Normal 0.0 [facility] Comment on above: Performed By: #### C DP, LIPRF, CP, PSAS #### [address] [address] Account Underwriter: Sahil Tanner MD Platelet mean volume (Bld) [Entitic vol] 9.9 fL Normal 8.1-13.5 [facility] Comment on above: Performed By: #### C DP, LIPRF, CP, PSAS #### [address] [address] Account Underwriter: Sahil Tanner MD Platelets (Bld) [#/Vol] 317 10*3/uL Normal 138-453 [facility] Comment on above: Performed By: #### C DP, LIPRF, CP, PSAS #### [address] [address] Account Underwriter: Sahil Tanner MD RBC (Bld) [#/Vol] 4.97 10*6/uL Normal 4.21-5.77 [facility] Comment on above: Performed By: #### C DP, LIPRF, CP, PSAS #### [facility] [address] [place] [address] Account Underwriter: Sahil Tanner MD RBC morphology finding Nom (Bld) ANISOCYTOSIS PRESENT Normal [facility] Comment on above: Performed By: #### C DP, LIPRF, CP, PSAS #### [facility] [place] [address] Account Underwriter: Sahil Tanner MD WBC (Bld) [#/Vol] 5.0 10*3/uL Normal 3.5-11.3 [facility] Comment on above: Performed By: #### C DP, LIPRF, CP, PSAS #### [address] [address] Account Underwriter: Sahil Tanner MD MRI BRAIN W WO CONTRASTon MRI BRAIN W WO CONTRAST EXAMINATION: MRI OF THE BRAIN WITHOUT AND WITH CONTRAST 08/31/2022 4:17 pm TECHNIQUE: Multiplanar multisequence MRI of the head/brain was performed without and with the administration of intravenous contrast. COMPARISON: CT head 02/28/2022 HISTORY: ORDERING SYSTEM PROVIDED HISTORY: SAH (subarachnoid hemorrhage) ([facility]) TECHNOLOGIST PROVIDED HISTORY: STAT Creatinine as needed:->Yes intracranial bleed and SAH wo known etiology What is the sedation requirement?->None Reason for Exam: intracranial bleed and SAH wo known etiology, SAH (subarachnoid hemorrhage) ([facility]) Additional signs and symptoms: hx of brain bleed about 1 year ago per pt FINDINGS: INTRACRANIAL STRUCTURES/VENTRICLE S: No acute infarct or mass. Small focus of left parietal encephalomalacia with surrounding gliosis. No mass effect or midline shift. No evidence of an acute intracranial hemorrhage. The ventricles and sulci are normal in size and configuration. The sellar/suprasellar regions appear unremarkable. The normal signal voids within the major intracranial vessels appear maintained. No abnormal focus of enhancement is seen within the brain. ORBITS: Orbital structures are unremarkable. SINUSES: The visualized paranasal sinuses and mastoid air cells demonstrate no acute abnormality. BONES/SOFT TISSUES: The bone marrow signal intensity appears normal. The soft tissues demonstrate no acute abnormality. 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 No acute abnormality. 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 No acute abnormality. [facility] EXAMINATION: MRI OF THE BRAIN WITHOUT AND WITH CONTRAST 08/31/2022 4:17 pm TECHNIQUE: Multiplanar multisequence MRI of the head/brain was performed without and with the administration of intravenous contrast. COMPARISON: CT head 02/28/2022 HISTORY: ORDERING SYSTEM PROVIDED HISTORY: SAH (subarachnoid hemorrhage) ([facility]) TECHNOLOGIST PROVIDED HISTORY: STAT Creatinine as needed:->Yes intracranial bleed and SAH wo known etiology What is the sedation requirement?->None Reason for Exam: intracranial bleed and SAH wo known etiology, SAH (subarachnoid hemorrhage) ([facility]) Additional signs and symptoms: hx of brain bleed about 1 year ago per pt FINDINGS: INTRACRANIAL STRUCTURES/VENTRICLE S: No acute infarct or mass. Small focus of left parietal encephalomalacia with surrounding gliosis. No mass effect or midline shift. No evidence of an acute intracranial hemorrhage. The ventricles and sulci are normal in size and configuration. The sellar/suprasellar regions appear unremarkable. The normal signal voids within the major intracranial vessels appear maintained. No abnormal focus of enhancement is seen within the brain. ORBITS: Orbital structures are unremarkable. SINUSES: The visualized paranasal sinuses and mastoid air cells demonstrate no acute abnormality. BONES/SOFT TISSUES: The bone marrow signal intensity appears normal. The soft tissues demonstrate no acute abnormality. [facility] Des Iglesias MD - 09/01/2022 EXAMINATION: MRI OF THE BRAIN WITHOUT AND WITH CONTRAST 08/31/2022 4:17 pm TECHNIQUE: Multiplanar multisequence MRI of the head/brain was performed without and with the administration of intravenous contrast. COMPARISON: CT head 02/28/2022 HISTORY: ORDERING SYSTEM PROVIDED HISTORY: SAH (subarachnoid hemorrhage) ([facility]) TECHNOLOGIST PROVIDED HISTORY: STAT Creatinine as needed:->Yes intracranial bleed and SAH wo known etiology What is the sedation requirement?->None Reason for Exam: intracranial bleed and SAH wo known etiology, SAH (subarachnoid hemorrhage) ([facility]) Additional signs and symptoms: hx of brain bleed about 1 year ago per pt FINDINGS: INTRACRANIAL STRUCTURES/VENTRICLE S: No acute infarct or mass. Small focus of left parietal encephalomalacia with surrounding gliosis. No mass effect or midline shift. No evidence of an acute intracranial hemorrhage. The ventricles and sulci are normal in size and configuration. The sellar/suprasellar regions appear unremarkable. The normal signal voids within the major intracranial vessels appear maintained. No abnormal focus of enhancement is seen within the brain. ORBITS: Orbital structures are unremarkable. SINUSES: The visualized paranasal sinuses and mastoid air cells demonstrate no acute abnormality. BONES/SOFT TISSUES: The bone marrow signal intensity appears normal. The soft tissues demonstrate no acute abnormality. 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 No acute abnormality. [employer] Work Phone: MRI CERVICAL SPINE WO CONTRA Patrick 09-01-2022 MRI CERVICAL SPINE WO CONTRAST EXAMINATION: MRI OF THE CERVICAL SPINE WITHOUT CONTRAST 08/31/2022 4:16 pm TECHNIQUE: Multiplanar multisequence MRI of the cervical spine was performed without the administration of intravenous contrast. COMPARISON: None. HISTORY: ORDERING SYSTEM PROVIDED HISTORY: Complex regional pain syndrome type 1 of left upper extremity TECHNOLOGIST PROVIDED HISTORY: surgical planning for SCS placement What is the sedation requirement?->None Reason for Exam: surgical planning for SCS placement, Complex regional pain syndrome type 1 of left upper extremity, Failure of spinal cord stimulator, subsequent encounter Additional signs and symptoms: left shoulder pain FINDINGS: BONES/ALIGNMENT: There is normal alignment of the spine. The vertebral body heights are maintained. The bone marrow signal appears unremarkable. SPINAL CORD: The visualized spinal cord has normal signal and morphology. No evidence of mass or abnormal fluid collection within the spinal canal. SOFT TISSUES: Paraspinal soft tissues are unremarkable. C2-C3: Disc height and signal maintained. No left neural foraminal narrowing. Mild right neural foraminal narrowing secondary to uncovertebral hypertrophy. No spinal canal stenosis. C3-C4: Disc height and signal maintained. No left neural foraminal narrowing. Moderate right neural foraminal narrowing secondary to uncovertebral hypertrophy. No spinal canal stenosis. C4-C5: Disc height and signal maintained. No left neural foraminal narrowing. Mild right neural foraminal narrowing secondary to uncovertebral hypertrophy. Mild spinal canal stenosis secondary to disc bulge. C5-C6: Mild disc height loss and desiccation. Moderate left and severe right neural foraminal narrowing secondary to uncovertebral hypertrophy. Mild spinal canal stenosis secondary to disc bulge. C6-C7: Mild disc height loss and desiccation. Severe bilateral neural foraminal narrowing secondary to uncovertebral hypertrophy. Moderate spinal canal stenosis secondary to disc bulge. C7-T1: Disc height and signal maintained. Moderate left and severe right neural foraminal narrowing secondary uncovertebral and facet hypertrophy. No spinal canal stenosis. IMPRESSION: 1. Multilevel degenerative disease and facet arthropathy. 2. Spinal canal stenoses, moderate at C6-7 and mild at C4-5 and C5-6. 3. Multilevel neural foraminal as detailed above and greatest involving the right C6, bilateral C7, and right C8 neural foramina where it is severe. Interpreted by: Des Iglesias MD Signed by: Des Iglesias MD 09/01/22 Final result Normal [facility] 1. Multilevel degenerative disease and facet arthropathy. 2. Spinal canal stenoses, moderate at C6-7 and mild at C4-5 and C5-6. 3. Multilevel neural foraminal as detailed above and greatest involving the right C6, bilateral C7, and right C8 neural foramina where it is severe. [facility] RIS CONSOLIDATED EXAMINATION: MRI OF THE CERVICAL SPINE WITHOUT CONTRAST 08/31/2022 4:16 pm TECHNIQUE: Multiplanar multisequence MRI of the cervical spine was performed without the administration of intravenous contrast. COMPARISON: None. HISTORY: ORDERING SYSTEM PROVIDED HISTORY: Complex regional pain syndrome type 1 of left upper extremity TECHNOLOGIST PROVIDED HISTORY: surgical planning for SCS placement What is the sedation requirement?->None Reason for Exam: surgical planning for SCS placement, Complex regional pain syndrome type 1 of left upper extremity, Failure of spinal cord stimulator, subsequent encounter Additional signs and symptoms: left shoulder pain FINDINGS: BONES/ALIGNMENT: There is normal alignment of the spine. The vertebral body heights are maintained. The bone marrow signal appears unremarkable. SPINAL CORD: The visualized spinal cord has normal signal and morphology. No evidence of mass or abnormal fluid collection within the spinal canal. SOFT TISSUES: Paraspinal soft tissues are unremarkable. C2-C3: Disc height and signal maintained. No left neural foraminal narrowing. Mild right neural foraminal narrowing secondary to uncovertebral hypertrophy. No spinal canal stenosis. C3-C4: Disc height and signal maintained. No left neural foraminal narrowing. Moderate right neural foraminal narrowing secondary to uncovertebral hypertrophy. No spinal canal stenosis. C4-C5: Disc height and signal maintained. No left neural foraminal narrowing. Mild right neural foraminal narrowing secondary to uncovertebral hypertrophy. Mild spinal canal stenosis secondary to disc bulge. C5-C6: Mild disc height loss and desiccation. Moderate left and severe right neural foraminal narrowing secondary to uncovertebral hypertrophy. Mild spinal canal stenosis secondary to disc bulge. C6-C7: Mild disc height loss and desiccation. Severe bilateral neural foraminal narrowing secondary to uncovertebral hypertrophy. Moderate spinal canal stenosis secondary to disc bulge. C7-T1: Disc height and signal maintained. Moderate left and severe right neural foraminal narrowing secondary uncovertebral and facet hypertrophy. No spinal canal stenosis. [facility] RIS CONSOLIDATED Des Iglesias MD - 09/01/2022 EXAMINATION: MRI OF THE CERVICAL SPINE WITHOUT CONTRAST 08/31/2022 4:16 pm TECHNIQUE: Multiplanar multisequence MRI of the cervical spine was performed without the administration of intravenous contrast. COMPARISON: None. HISTORY: ORDERING SYSTEM PROVIDED HISTORY: Complex regional pain syndrome type 1 of left upper extremity TECHNOLOGIST PROVIDED HISTORY: surgical planning for SCS placement What is the sedation requirement?->None Reason for Exam: surgical planning for SCS placement, Complex regional pain syndrome type 1 of left upper extremity, Failure of spinal cord stimulator, subsequent encounter Additional signs and symptoms: left shoulder pain FINDINGS: BONES/ALIGNMENT: There is normal alignment of the spine. The vertebral body heights are maintained. The bone marrow signal appears unremarkable. SPINAL CORD: The visualized spinal cord has normal signal and morphology. No evidence of mass or abnormal fluid collection within the spinal canal. SOFT TISSUES: Paraspinal soft tissues are unremarkable. C2-C3: Disc height and signal maintained. No left neural foraminal narrowing. Mild right neural foraminal narrowing secondary to uncovertebral hypertrophy. No spinal canal stenosis. C3-C4: Disc height and signal maintained. No left neural foraminal narrowing. Moderate right neural foraminal narrowing secondary to uncovertebral hypertrophy. No spinal canal stenosis. C4-C5: Disc height and signal maintained. No left neural foraminal narrowing. Mild right neural foraminal narrowing secondary to uncovertebral hypertrophy. Mild spinal canal stenosis secondary to disc bulge. C5-C6: Mild disc height loss and desiccation. Moderate left and severe right neural foraminal narrowing secondary to uncovertebral hypertrophy. Mild spinal canal stenosis secondary to disc bulge. C6-C7: Mild disc height loss and desiccation. Severe bilateral neural foraminal narrowing secondary to uncovertebral hypertrophy. Moderate spinal canal stenosis secondary to disc bulge. C7-T1: Disc height and signal maintained. Moderate left and severe right neural foraminal narrowing secondary uncovertebral and facet hypertrophy. No spinal canal stenosis. IMPRESSION: 1. Multilevel degenerative disease and facet arthropathy. 2. Spinal canal stenoses, moderate at C6-7 and mild at C4-5 and C5-6. 3. Multilevel neural foraminal as detailed above and greatest involving the right C6, bilateral C7, and right C8 neural foramina where it is severe. [employer] Work Phone: No Panel InformationOrdered By: Des Iglesias on 09-01-2022 [employer] Work Phone: Creatinine W/GFR Point of Ca reon 08-31-2022 Creatinine [Mass/Vol] 0.81 mg/dL 0.51 - 1.19 mg/dL [employer] eGFR, POC mL/min/1.73m 2 [employer] Comment on above: Effective Aug 27, 2022 These results are not intended for use in patients <18 years of age. eGFR results are calculated without a race factor using the 2020 CKD-EPI equation. Careful clinical correlation is recommended, particularly when comparing to results calculated using previous equations. The CKD-EPI equation is less accurate in patients with extremes of muscle mass, extra-renal metabolism of creatine, excessive creatine ingestion, or following therapy that affects renal tubular secretion. GFR Non- >60 60 - PINF mL/min [employer] GFR/1.73 sq M.predicted MDRD (S/P/Bld) [Vol rate/Area] mL/min 60 - PINF mL/min [employer] No Panel Informationon 08-31 Radiology Study observation (narrative) [facility] [employer] Work Phone: FLUORO FOR SURGICAL PROCEDUR ESon 07-19-2022 Radiology exam is complete. No Radiologist dictation. Please follow up with ordering provider. [facility] RIS CONSOLIDATED APTTon 07-05-2022 aPTT Coag (Bld) [Time] 25.5 s KELLE [employer] Comment on above: IV Heparin Therapy Range: 48.6-77.8 BUN & Creatinineon Creatinine [Mass/Vol] 0.78 mg/dL 0.7 - 1.2 mg/dL [facility] GFR >60 60 - PI NF mL/min [facility] GFR Non- >60 60 - PINF mL/min [facility] GFR/1.73 sq M.predicted MDRD (S/P/Bld) [Vol rate/Area] [facility] Comment on above: Average GFR for 50-5 9 years old: 93 mL/min/1.73sq m Chronic Kidney Disease: <60 mL/min/1.73sq m Kidney failure: <15 mL/min/1.73sq m eGFR calculated using average adult body mass. Additional eGFR calculator available at: http://www.Glimpse.com/multiple_crcl_2012.htm Urea nitrogen (BldV) [Mass/Vol] 17 mg/dL 6 - 20 mg/dL [facility] CBCon 07-05-2022 Hematocrit (Bld) [Volume fraction] 42.8 % 40.7 - 50.3 % [facility] Hemoglobin (Bld) [Mass/Vol] 13.6 g/dL 13 - 17 g/dL [facility] MCH (RBC) [Entitic mass] 26.8 pg 25.2 - 33.5 pg [facility] [employer] MCHC (RBC) [Mass/Vol] 31.8 g/dL 28.4 - 34.8 g/dL [facility] MCV (RBC) [Entitic vol] 84.4 fL 82.6 - 102.9 fL [facility] NRBC Automated 0.0 0.0 per 100 WBC [facility] Platelet distribution width (Bld) [Ratio] 15.2 % High 11.8 - 14.4 % [facility] [employer] Platelet mean volume (Bld) [Entitic vol] 9.8 fL 8.1 - 13.5 fL [facility] [employer] Platelets (Bld) [#/Vol] 318 10*3/uL [facility] [employer] RBC (Bld) [#/Vol] 5.07 10*6/uL 4.21 - 5.7 7 m/uL [facility] [employer] WBC (Bld) [#/Vol] 5.9 10*3/uL [facility] [employer] EKG 12 LeadOrdered By: Lázaro Alba on 07-05-2022 Atrial Rate 53 BPM [facility] [employer] Work Phone: P [place] 68 degrees [facility] [employer] Work Phone: P-R Interval 162 ms [facility] [employer] Work Phone: Q-T Interval 446 ms [facility] Work Phone: QRS Duration 104 ms [facility] [employer] Work Phone: QTc Calculation (Bazett) 418 ms [facility] [employer] Work Phone: R [place] -101 degrees [facility] [employer] Work Phone: T [place] 6 degrees [facility] [employer] Work Phone: Ventricular Rate 53 BPM [facility] Work Phone: [facility] [employer] Work Phone: EKG 12 Leadon 07-05-2022 Sinus bradycardia Right superior axis deviation St T abnormalities Inferior leads Abnormal ECG No previous ECGs available [facility] Lázaro Jiménez MD - 07/05/2022 Sinus bradycardia Right superior axis deviation St T abnormalities Inferior leads Abnormal ECG No previous ECGs available [facility] [employer] Work Phone: Electrolyte Panelon 08-11-20 22 Anion gap [Moles/Vol] 8 mmol/L Low 9 - 17 mmol/L [facility] Chloride [Moles/Vol] 103 mmol/L 98 - 10 7 mmol/L [facility] CO2 [Moles/Vol] 24 mmol/L 20 - 31 mmol/L [facility] Potassium [Moles/Vol] 4.2 mmol/L 3.7 - 5.3 mmol/L [facility] Sodium [Moles/Vol] 135 mmol/L 135 - 144 mmol/L [facility] Glucose, Randomon 07-05-2022 Glucose [Mass/Vol] 100 mg/dL High 70 - 99 mg/dL [facility] No Panel Informationon 07-05 Interpretation and review of laboratory results Abnormal [facility] Protime-INRon 07-05-2022 INR Coag (Bld) [Relative time] 1.0 {INR} [facility] Comment on above: Therapeutic Range: Moderate Anticoagulant Intensity: INR = 2.0-3.0 High Anticoagulant Intensity: INR = 2.5-3.5 PT Coag (PPP) [Time] 10.5 s [facility] TYPE AND SCREENon 07-05-2022 ABO/Rh Positive [facility] Arm Band Number [id number] [facility] Expiration Date 07/22/2022,2352 [facility] CTA HEAD W CONTRASTOrdered B y: Carolyn Joseph on 09-06-2021 1. No acute intracranial abnormality. 2. No acute abnormality or flow-limiting stenosis of the major arteries of the head. [facility] Work Phone: EXAMINATION: CTA OF THE HEAD WITH CONTRAST 09/06/2021 8:06 am TECHNIQUE: CTA of the head/brain was performed with the administration of intravenous contrast. Multiplanar reformatted images are provided for review. MIP images are provided for review. Dose modulation, iterative reconstruction, and/or weight based adjustment of the mA/kV was utilized to reduce the radiation dose to as low as reasonably achievable. COMPARISON: CTA head March 08, 2021 HISTORY: ORDERING SYSTEM PROVIDED HISTORY: SAH (subarachnoid hemorrhage) ([facility]) TECHNOLOGIST PROVIDED HISTORY: spont SAH Reason for Exam: pt had a spont SAH 9 months ago, this is a follow up, no complaints at thist time Acuity: Chronic Type of Exam: Subsequent/Follow-up FINDINGS: CT HEAD: BRAIN/VENTRICLES: No acute intracranial hemorrhage or extraaxial fluid collection. Ross-white differentiation is maintained. No evidence of mass, mass effect or midline shift. No evidence of hydrocephalus. ORBITS: The visualized portion of the orbits demonstrate no acute abnormality. SINUSES: The visualized paranasal sinuses and mastoid air cells demonstrate no acute abnormality. SOFT TISSUES/SKULL: No acute abnormality of the visualized skull or soft tissues. CTA HEAD: ANTERIOR CIRCULATION: No significant stenosis of the intracranial internal carotid, anterior cerebral, or middle cerebral arteries. There is likely fenestration at the anterior communicating artery, normal variant. No aneurysm. POSTERIOR CIRCULATION: There is mild stenosis in the mid V4 segment of the left vertebral artery. No significant stenosis of the vertebral, basilar, or posterior cerebral arteries. No aneurysm. OTHER: No dural venous sinus thrombosis on this non-dedicated study. [employer] Work Phone: Mac, [facility] Incoming Radiant Results From [employer] - 09/06/2021 9:54 AM EDT EXAMINATION: CTA OF THE HEAD WITH CONTRAST 09/06/2021 8:06 am TECHNIQUE: CTA of the head/brain was performed with the administration of intravenous contrast. Multiplanar reformatted images are provided for review. MIP images are provided for review. Dose modulation, iterative reconstruction, and/or weight based adjustment of the mA/kV was utilized to reduce the radiation dose to as low as reasonably achievable. COMPARISON: CTA head March 08, 2021 HISTORY: ORDERING SYSTEM PROVIDED HISTORY: SAH (subarachnoid hemorrhage) ([facility]) TECHNOLOGIST PROVIDED HISTORY: spont SAH Reason for Exam: pt had a spont SAH 9 months ago, this is a follow up, no complaints at thist time Acuity: Chronic Type of Exam: Subsequent/Follow-up FINDINGS: CT HEAD: BRAIN/VENTRICLES: No acute intracranial hemorrhage or extraaxial fluid collection. Ross-white differentiation is maintained. No evidence of mass, mass effect or midline shift. No evidence of hydrocephalus. ORBITS: The visualized portion of the orbits demonstrate no acute abnormality. SINUSES: The visualized paranasal sinuses and mastoid air cells demonstrate no acute abnormality. SOFT TISSUES/SKULL: No acute abnormality of the visualized skull or soft tissues. CTA HEAD: ANTERIOR CIRCULATION: No significant stenosis of the intracranial internal carotid, anterior cerebral, or middle cerebral arteries. There is likely fenestration at the anterior communicating artery, normal variant. No aneurysm. POSTERIOR CIRCULATION: There is mild stenosis in the mid V4 segment of the left vertebral artery. No significant stenosis of the vertebral, basilar, or posterior cerebral arteries. No aneurysm. OTHER: No dural venous sinus thrombosis on this non-dedicated study. IMPRESSION: 1. No acute intracranial abnormality. 2. No acute abnormality or flow-limiting stenosis of the major arteries of the head. [facility] Work Phone: [facility] Phone: Hep C Abon 09-02-2021 Hep C Ab Non-Reactive Normal NR [facility] Comment on above: Result Comment: The hepatitis C procedure used in our laboratory is a Chemiluminescent test specific for three recombinant HCV antigens. A negative anti-HCV result indicates that the antibodies to hepatitis C virus are not present at this time. Individuals with reactive anti-HCV should be considered infected and infectious until proven otherwise. Confirmation of all equivocal or reactive results is recommended by ordering HCV RNA by PCR. Performed By: #### A HCV, PSAS, HIVCMB, LIPRF, CP, CDP #### [facility] [address] [place] [id number] Account Underwriter: Sahil Tanner MD PSA, Screeningon 09-02-2021 Prostatic Spec. Ag 0.24 ug/L Normal <4.1 [facility] Comment on above: Result Comment: The Jb ECLIA assay is used. Results obtained with different assay methods cannot be used interchangeably. Performed By: #### A HCV, PSAS, HIVCMB, LIPRF, CP, CDP #### [facility] [address] [place] [id number] Account Underwriter: Sahil Tanner MD CBC with Diffon 09-01-2021 Abs. Basophil <0.03 Normal 0.00-0.20 [facility] Comment on above: Performed By: #### A HCV, PSAS, HIVCMB, LIPRF, CP, CDP #### [address] [address] Account Underwriter: Sahil Tanner MD Abs.Imm.Granulocyte <0.03 Normal 0.00-0.30 [facility] Comment on above: Performed By: #### A HCV, PSAS, HIVCMB, LIPRF, CP, CDP #### [address] [address] Account Underwriter: Sahil Tanner MD Abs.Neutrophil (Seg) 3.71 k/uL Normal 1.50-8.10 [facility] Comment on above: Performed By: #### A HCV, PSAS, HIVCMB, LIPRF, CP, CDP #### [address] [address] Account Underwriter: Sahil Tanner MD Auto Diff Performed NOT REPORTED Normal [place] Comment on above: Performed By: #### A HCV, PSAS, HIVCMB, LIPRF, CP, CDP #### [address] [address] Account Underwriter: Sahil Tanner MD Basophils/100 WBC (Bld) 0 % Normal 0-2 [facility] Comment on above: Performed By: #### A HCV, PSAS, HIVCMB, LIPRF, CP, CDP #### [address] [address] Account Underwriter: Sahil Tanner MD Eosinophils (Bld) [#/Vol] 0.06 10*3/uL Normal 0.00-0.44 [facility] Comment on above: Performed By: #### A HCV, PSAS, HIVCMB, LIPRF, CP, CDP #### [address] [address] Account Underwriter: Sahil Tanner MD Eosinophils/100 WBC (Bld) 1 % Normal 1-4 [facility] Comment on above: Performed By: #### A HCV, PSAS, HIVCMB, LIPRF, CP, CDP #### [address] [address] Account Underwriter: Sahil Tanner MD Erythrocyte distribution width (RBC) [Ratio] 13.6 % Normal 11.8-14.4 [facility] Comment on above: Performed By: #### A HCV, PSAS, HIVCMB, LIPRF, CP, CDP #### [address] [address] Account Underwriter: Sahil Tanner MD Hematocrit (Bld) [Volume fraction] 45.1 % Normal 40.7-50.3 [facility] Comment on above: Performed By: #### A HCV, PSAS, HIVCMB, LIPRF, CP, CDP #### [address] [address] Account Underwriter: Sahil Tanner MD Hemoglobin (Bld) [Mass/Vol] 14.1 g/dL Normal 13.0-17.0 [facility] Comment on above: Performed By: #### A HCV, PSAS, HIVCMB, LIPRF, CP, CDP #### [address] [address] Account Underwriter: Sahil Tanner MD Immature granulocytes/100 WBC (Bld) 0 % Normal 0 [facility] Comment on above: Performed By: #### A HCV, PSAS, HIVCMB, LIPRF, CP, CDP #### [address] [address] Account Underwriter: Sahil Tanner MD Lymphocytes (Bld) [#/Vol] 0.97 10*3/uL Low 1.10-3.70 [facility] Comment on above: Performed By: #### A HCV, PSAS, HIVCMB, LIPRF, CP, CDP #### [address] [place] [address] Account Underwriter: Sahil Tanner MD Lymphocytes/100 WBC (Bld) 18 % Low 24-43 [facility] Comment on above: Performed By: #### A HCV, PSAS, HIVCMB, LIPRF, CP, CDP #### [address] [address] Account Underwriter: Sahil Tanner MD MCH (RBC) [Entitic mass] 27.1 pg Normal 25.2-33.5 [facility] Comment on above: Performed By: #### A HCV, PSAS, HIVCMB, LIPRF, CP, CDP #### [address] [address] Account Underwriter: Sahil Tanner MD MCHC (RBC) [Mass/Vol] 31.3 g/dL Normal 28.4-34.8 [place] Comment on above: Performed By: #### A HCV, PSAS, HIVCMB, LIPRF, CP, CDP #### [address] [address] Account Underwriter: Sahil Tanner MD MCV (RBC) [Entitic vol] 86.6 fL Normal 82.6-102.9 [facility] Comment on above: Performed By: #### A HCV, PSAS, HIVCMB, LIPRF, CP, CDP #### [address] [address] Account Underwriter: Sahil Tanner MD Monocytes (Bld) [#/Vol] 0.51 10*3/uL Normal 0.10-1.20 [facility] Comment on above: Performed By: #### A HCV, PSAS, HIVCMB, LIPRF, CP, CDP #### [address] [address] Account Underwriter: Sahil Tanner MD Monocytes/100 WBC (Bld) 10 % Normal 3-12 [facility] Comment on above: Performed By: #### A HCV, PSAS, HIVCMB, LIPRF, CP, CDP #### [address] [address] Account Underwriter: Sahil Tanner MD Neutrophil (Seg) 70 % High 36-65 [facility] Comment on above: Performed By: #### A HCV, PSAS, HIVCMB, LIPRF, CP, CDP #### [address] [address] Account Underwriter: Sahil Tanner MD NRBC Automated 0.0 per 100 WBC Normal 0.0 [facility] Comment on above: Performed By: #### A HCV, PSAS, HIVCMB, LIPRF, CP, CDP #### [address] [address] Account Underwriter: Sahil Tanner MD Platelet Estimate NOT REPORTED Normal [facility] Comment on above: Performed By: #### A HCV, PSAS, HIVCMB, LIPRF, CP, CDP #### [address] [address] Account Underwriter: Sahil Tanner MD Platelet mean volume (Bld) [Entitic vol] 10.6 fL Normal 8.1-13.5 [facility] Comment on above: Performed By: #### A HCV, PSAS, HIVCMB, LIPRF, CP, CDP #### [address] [address] Account Underwriter: Sahil Tanner MD Platelets (Bld) [#/Vol] 305 10*3/uL Normal 138-453 [facility] Comment on above: Performed By: #### A HCV, PSAS, HIVCMB, LIPRF, CP, CDP #### [address] [address] Account Underwriter: Sahil Tanner MD RBC (Bld) [#/Vol] 5.21 10*6/uL Normal 4.21-5.77 [facility] Comment on above: Performed By: #### A HCV, PSAS, HIVCMB, LIPRF, CP, CDP #### [facility] [address] [place] [address] Account Underwriter: Sahil Tanner MD RBC morphology finding Nom (Bld) NOT REPORTED Normal [facility] Comment on above: Performed By: #### A HCV, PSAS, HIVCMB, LIPRF, CP, CDP #### [facility] [place] [address] Account Underwriter: Sahil Tanner MD WBC (Bld) [#/Vol] 5.3 10*3/uL Normal 3.5-11.3 [facility] Comment on above: Performed By: #### A HCV, PSAS, HIVCMB, LIPRF, CP, CDP #### [facility] [place] [address] Account Underwriter: Sahil Tanner MD WBC Morphology NOT REPORTED Normal [facility] Comment on above: Performed By: #### A HCV, PSAS, HIVCMB, LIPRF, CP, CDP #### [facility] [address] [place] [id number] Account Underwriter: Sahil Tanner MD Comp Metabolic Profon 2020 (cont.) Normal [facility] Comment on above: Result Comment: Aver age GFR for 50-59 years old: 93 mL/min/1.73sq m Chronic Kidney Disease: <60 mL/min/1.73sq m Kidney failure: <15 mL/min/1.73sq m eGFR calculated using average adult body mass. Additional eGFR calculator available at: [email or web address] Performed By: #### A HCV, PSAS, HIVCMB, LIPRF, CP, CDP #### [address] [address] Account Underwriter: Sahil Tanner MD Albumin [Mass/Vol] 4.7 g/dL Normal 3.5-5.2 [facility] Comment on above: Performed By: #### A HCV, PSAS, HIVCMB, LIPRF, CP, CDP #### [address] [address] Account Underwriter: Sahil Tanner MD Albumin/Glob Ratio 2.0 Normal 1.0-2.5 [facility] Comment on above: Performed By: #### A HCV, PSAS, HIVCMB, LIPRF, CP, CDP #### [address] [address] Account Underwriter: Sahil Tanner MD Alkaline Phos 73 U/L Normal 40-129 [facility] Comment on above: Performed By: #### A HCV, PSAS, HIVCMB, LIPRF, CP, CDP #### [address] [address] Account Underwriter: Sahil Tanner MD ALT [Catalytic activity/Vol] 35 U/L Normal 5-41 [facility] Comment on above: Performed By: #### A HCV, PSAS, HIVCMB, LIPRF, CP, CDP #### [address] [address] Account Underwriter: Sahil Tanner MD Anion gap [Moles/Vol] 11 mmol/L Normal 9-17 [place] Comment on above: Performed By: #### A HCV, PSAS, HIVCMB, LIPRF, CP, CDP #### [address] [address] Account Underwriter: Sahil Tanner MD AST [Catalytic activity/Vol] 43 U/L High <40 [facility] Comment on above: Performed By: #### A HCV, PSAS, HIVCMB, LIPRF, CP, CDP #### [facility] [address] [place] [phone] Account Underwriter: Sahil Tanner MD Bilirubin [Mass/Vol] 0.19 mg/dL Low 0.3-1.2 [facility] Comment on above: Performed By: #### A HCV, PSAS, HIVCMB, LIPRF, CP, CDP #### [address] [address] Account Underwriter: Sahil Tanner MD BUN/CRE Ratio NOT REPORTED Normal 9-20 [facility] Comment on above: Performed By: #### A HCV, PSAS, HIVCMB, LIPRF, CP, CDP #### [address] [address] Account Underwriter: Sahil Tanner MD Calcium [Mass/Vol] 9.4 mg/dL Normal 8.6-10.4 [facility] Comment on above: Performed By: #### A HCV, PSAS, HIVCMB, LIPRF, CP, CDP #### [address] [address] Account Underwriter: Sahil Tanner MD Chloride [Moles/Vol] 105 mmol/L Normal 98-107 [facility] Comment on above: Performed By: #### A HCV, PSAS, HIVCMB, LIPRF, CP, CDP #### [address] [address] Account Underwriter: Sahil Tanner MD CO2 [Moles/Vol] 24 mmol/L Normal 20-31 [facility] Comment on above: Performed By: #### A HCV, PSAS, HIVCMB, LIPRF, CP, CDP #### [address] [address] Account Underwriter: Sahil Tanner MD Creatinine [Mass/Vol] 0.85 mg/dL Normal 0.70-1.20 [place] Comment on above: Performed By: #### A HCV, PSAS, HIVCMB, LIPRF, CP, CDP #### [facility] [address] [place] [phone] Account Underwriter: Sahil Tanner MD GFR, Amer >60 Normal >60 [facility] Comment on above: Performed By: #### A HCV, PSAS, HIVCMB, LIPRF, CP, CDP #### [facility] [address] [place] [phone] Account Underwriter: Sahil Tanner MD GFR,non Amer >60 Normal >60 [facility] Comment on above: Performed By: #### A HCV, PSAS, HIVCMB, LIPRF, CP, CDP #### [facility] [address] [place] [phone] Account Underwriter: Sahil Tanner MD Glucose [Mass/Vol] 103 mg/dL High 70-99 [facility] Comment on above: Performed By: #### A HCV, PSAS, HIVCMB, LIPRF, CP, CDP #### [facility] [address] [place] [phone] Account Underwriter: Sahil Tanner MD Potassium [Moles/Vol] 5.2 mmol/L Normal 3.7-5.3 [place] Comment on above: Performed By: #### A HCV, PSAS, HIVCMB, LIPRF, CP, CDP #### [facility] [address] [place] [phone] Account Underwriter: Sahil Tanner MD Protein [Mass/Vol] 7.0 g/dL Normal 6.4-8.3 [facility] Comment on above: Performed By: #### A HCV, PSAS, HIVCMB, LIPRF, CP, CDP #### [facility] [address] [place] [phone] Account Underwriter: Sahil Tanner MD Sodium [Moles/Vol] 140 mmol/L Normal 135-144 [facility] Comment on above: Performed By: #### A HCV, PSAS, HIVCMB, LIPRF, CP, CDP #### [facility] [address] [place] [phone] Account Underwriter: Sahil Tanner MD Staging: NOT REPORTED Normal [facility] Comment on above: Performed By: #### A HCV, PSAS, HIVCMB, LIPRF, CP, CDP #### [facility] [address] [place] [phone] Account Underwriter: Sahil Tanner MD Urea nitrogen [Mass/Vol] 15 mg/dL Normal 6-20 [facility] Comment on above: Performed By: #### A HCV, PSAS, HIVCMB, LIPRF, CP, CDP #### [address] [address] Account Underwriter: Sahil Tanner MD HIV Ag/Abon 09-01-2021 HIV Ag/Ab Non-Reactive Normal NR [facility] Comment on above: Result Comment: No l aboratory evidence of HIV infection. If acute HIV infection is suspected, consider testing for HIV-1 RNA. Performed By: #### A HCV, PSAS, HIVCMB, LIPRF, CP, CDP #### [address] [address] Account Underwriter: Sahil Tanner MD Lipid Prof, Fastingon 2020 Cholesterol [Mass/Vol] 158 mg/dL Normal <[address] [facility] Comment on above: Result Comment: Cholesterol Guidelines: <200 Desirable 200-240 Borderline >240 Undesirable Performed By: #### A HCV, PSAS, HIVCMB, LIPRF, CP, CDP #### [address] [address] Account Underwriter: Sahil Tanner MD Cholesterol in HDL [Mass/Vol] 66 mg/dL Normal >40 [facility] Comment on above: Result Comment: HDL Guidelines: <40 Undesirable 40-59 Borderline >59 Desirable Performed By: #### A HCV, PSAS, HIVCMB, LIPRF, CP, CDP #### [facility] [address] [place] [phone] Account Underwriter: Sahil Tanner MD Cholesterol in LDL [Mass/Vol] 82 mg/dL Normal 0-130 [facility] Comment on above: Result Comment: LDL Guidelines: <100 Desirable 100-129 Near to/above Desirable 130-159 Borderline >159 Undesirable Direct (measured) LDL and calculated LDL are not interchangeable tests. Performed By: #### A HCV, PSAS, HIVCMB, LIPRF, CP, CDP #### [facility] [address] [place] [phone] Account Underwriter: Sahil Tanner MD Cholesterol,VLDL NOT REPORTED Normal 1-30 [facility] Comment on above: Performed By: #### A HCV, PSAS, HIVCMB, LIPRF, CP, CDP #### [facility] [address] [place] [phone] Account Underwriter: Sahil Tanner MD Cholesterol.total/Chol esterol in HDL [Mass ratio] 2.4 {ratio} Normal <5 [facility] Comment on above: Performed By: #### A HCV, PSAS, HIVCMB, LIPRF, CP, CDP #### [facility] [address] [place] [phone] Account Underwriter: Sahil Tanner MD Triglyceride,Fasting 51 mg/dL Normal <150 [facility] Comment on above: Result Comment: Triglyceride Guidelines: <150 Desirable 150-199 Borderline 200-499 High >499 Very high Based on AHA Guidelines for fasting triglyceride, August 2012. Performed By: #### A HCV, PSAS, HIVCMB, LIPRF, CP, CDP #### [facility] [address] [place] [phone] Account Underwriter: Sahil Tanner MD CTA HEAD W CONTRASTOrdered B y: Samantha Husain on 03-08-2021 1. No acute intracranial abnormality. 2. Unremarkable CTA of the head. [employer] Phone: EXAMINATION: CTA OF THE HEAD WITH CONTRAST 03/08/2021 9:24 am TECHNIQUE: CTA of the head/brain was performed with the administration of intravenous contrast. Multiplanar reformatted images are provided for review. MIP images are provided for review. Dose modulation, iterative reconstruction, and/or weight based adjustment of the mA/kV was utilized to reduce the radiation dose to as low as reasonably achievable. COMPARISON: CT brain performed 12/03/2020. HISTORY: ORDERING SYSTEM PROVIDED HISTORY: SAH (subarachnoid hemorrhage) ([facility]) TECHNOLOGIST PROVIDED HISTORY: Reason for Exam: recheck SAH; patient states he had a SAH a few months ago, no known injury to cause bleed Acuity: Unknown Type of Exam: Unknown FINDINGS: CT HEAD: BRAIN/VENTRICLES: There is no acute intracranial hemorrhage, mass effect, or midline shift. There is satisfactory overall barney-white matter differentiation. The ventricular structures are symmetric and unremarkable. The infratentorial structures are unremarkable. ORBITS: The visualized portion of the orbits demonstrate no acute abnormality. SINUSES: The visualized paranasal sinuses and mastoid air cells demonstrate no acute abnormality. SOFT TISSUES/SKULL: No acute abnormality of the visualized skull or soft tissues. CTA HEAD: ANTERIOR CIRCULATION: No significant stenosis of the intracranial internal carotid, anterior cerebral, or middle cerebral arteries. No aneurysm. POSTERIOR CIRCULATION: No significant stenosis of the vertebral, basilar, or posterior cerebral arteries. No aneurysm. OTHER: No dural venous sinus thrombosis on this non-dedicated study. [employer] Phone: [place], [facility] Incoming Radiant Results From [employer] - 03/08/2021 10:33 AM EDT EXAMINATION: CTA OF THE HEAD WITH CONTRAST 03/08/2021 9:24 am TECHNIQUE: CTA of the head/brain was performed with the administration of intravenous contrast. Multiplanar reformatted images are provided for review. MIP images are provided for review. Dose modulation, iterative reconstruction, and/or weight based adjustment of the mA/kV was utilized to reduce the radiation dose to as low as reasonably achievable. COMPARISON: CT brain performed 12/03/2020. HISTORY: ORDERING SYSTEM PROVIDED HISTORY: SAH (subarachnoid hemorrhage) ([facility]) TECHNOLOGIST PROVIDED HISTORY: Reason for Exam: recheck SAH; patient states he had a SAH a few months ago, no known injury to cause bleed Acuity: Unknown Type of Exam: Unknown FINDINGS: CT HEAD: BRAIN/VENTRICLES: There is no acute intracranial hemorrhage, mass effect, or midline shift. There is satisfactory overall barney-white matter differentiation. The ventricular structures are symmetric and unremarkable. The infratentorial structures are unremarkable. ORBITS: The visualized portion of the orbits demonstrate no acute abnormality. SINUSES: The visualized paranasal sinuses and mastoid air cells demonstrate no acute abnormality. SOFT TISSUES/SKULL: No acute abnormality of the visualized skull or soft tissues. CTA HEAD: ANTERIOR CIRCULATION: No significant stenosis of the intracranial internal carotid, anterior cerebral, or middle cerebral arteries. No aneurysm. POSTERIOR CIRCULATION: No significant stenosis of the vertebral, basilar, or posterior cerebral arteries. No aneurysm. OTHER: No dural venous sinus thrombosis on this non-dedicated study. IMPRESSION: 1. No acute intracranial abnormality. 2. Unremarkable CTA of the head. [employer] Work Phone: CT LUMBAR SPINE WO CONTRASTo n 12-22-2020 Multilevel spondylosis with disc, endplate osteophyte, and facet degenerative changes. Narrowing of the spinal canal at the disc levels from L2 through S1, greatest at L3-L4 where the thecal sac is narrowed to just under 7 mm AP. Lateral recess stenosis at multiple levels, as well. Neuroforaminal stenosis that is severe bilaterally at L3 through L5 and on the right at L5-S1. [employer] EXAMINATION: CT OF THE LUMBAR SPINE WITHOUT CONTRAST 12/22/2020 TECHNIQUE: CT of the lumbar spine was performed without the administration of intravenous contrast. Multiplanar reformatted images are provided for review. Dose modulation, iterative reconstruction, and/or weight based adjustment of the mA/kV was utilized to reduce the radiation dose to as low as reasonably achievable. COMPARISON: None HISTORY: ORDERING SYSTEM PROVIDED HISTORY: Sciatica of left side TECHNOLOGIST PROVIDED HISTORY: eval for forminal stenosis Reason for Exam: eval for forminal stenosis, Sciatica of left side. lower back pain Relevant Medical/Surgical History: neurostimulator in place FINDINGS: BONES/ALIGNMENT: There is normal alignment of the spine. The vertebral body heights are maintained aside from some trace anterior wedging at T12 which is presumably physiologic. No osseous destructive lesion is seen. DEGENERATIVE CHANGES: L1-L2: Shallow circumferential disc bulge. No spinal canal stenosis with mild bilateral neuroforaminal narrowing. L2-L3: Large circumferential disc bulge with a superimposed central disc protrusion spanning approximately 4 mm AP moderately narrows the lateral recesses and narrows the spinal canal to 7 mm AP in conjunction with mild ligamentum flavum redundancy. There is mild associated endplate osteophytic change. Moderate bilateral neuroforaminal stenosis. L3-L4: Large circumferential disc bulge with a moderate component of endplate osteophytic changer with a broad-based central disc protrusion that spans approximately 6 mm AP and narrows the spinal canal to just under 7 mm AP. There is moderate stenosis of the lateral recesses in conjunction with ligamentum flavum redundancy and facet arthrosis. Severe bilateral neuroforaminal stenosis. L4-L5: Large circumferential disc bulge spanning 4 mm AP with only minimal endplate osteophytic change which predominates anteriorly with a superimposed anteriorly directed disc protrusion. There is severe right and mild left facet arthrosis. Narrowing of the spinal canal to approximately 9 mm AP with moderate stenosis of the lateral recesses. Severe bilateral neural foraminal narrowing. L5-S1: Moderate circumferential disc bulge spanning 3 mm AP with an anteriorly directed disc osteophyte complex. Superimposed right foraminal disc protrusion. Mild bilateral facet arthrosis. Narrowing of the spinal canal to 10 mm AP. Severe right and mild left neuroforaminal stenosis. SOFT TISSUES/RETROPERITON EUM: No paraspinal mass is seen. A neural stimulator is in place entering the posterior epidural space at T11-T12. [facility] [place], [place] [facility], [facility] Incoming Radiant Results From [employer] - 12/22/2020 7:03 PM EST EXAMINATION: CT OF THE LUMBAR SPINE WITHOUT CONTRAST 12/22/2020 TECHNIQUE: CT of the lumbar spine was performed without the administration of intravenous contrast. Multiplanar reformatted images are provided for review. Dose modulation, iterative reconstruction, and/or weight based adjustment of the mA/kV was utilized to reduce the radiation dose to as low as reasonably achievable. COMPARISON: None HISTORY: ORDERING SYSTEM PROVIDED HISTORY: Sciatica of left side TECHNOLOGIST PROVIDED HISTORY: eval for forminal stenosis Reason for Exam: eval for forminal stenosis, Sciatica of left side. lower back pain Relevant Medical/Surgical History: neurostimulator in place FINDINGS: BONES/ALIGNMENT: There is normal alignment of the spine. The vertebral body heights are maintained aside from some trace anterior wedging at T12 which is presumably physiologic. No osseous destructive lesion is seen. DEGENERATIVE CHANGES: L1-L2: Shallow circumferential disc bulge. No spinal canal stenosis with mild bilateral neuroforaminal narrowing. L2-L3: Large circumferential disc bulge with a superimposed central disc protrusion spanning approximately 4 mm AP moderately narrows the lateral recesses and narrows the spinal canal to 7 mm AP in conjunction with mild ligamentum flavum redundancy. There is mild associated endplate osteophytic change. Moderate bilateral neuroforaminal stenosis. L3-L4: Large circumferential disc bulge with a moderate component of endplate osteophytic changer with a broad-based central disc protrusion that spans approximately 6 mm AP and narrows the spinal canal to just under 7 mm AP. There is moderate stenosis of the lateral recesses in conjunction with ligamentum flavum redundancy and facet arthrosis. Severe bilateral neuroforaminal stenosis. L4-L5: Large circumferential disc bulge spanning 4 mm AP with only minimal endplate osteophytic change which predominates anteriorly with a superimposed anteriorly directed disc protrusion. There is severe right and mild left facet arthrosis. Narrowing of the spinal canal to approximately 9 mm AP with moderate stenosis of the lateral recesses. Severe bilateral neural foraminal narrowing. L5-S1: Moderate circumferential disc bulge spanning 3 mm AP with an anteriorly directed disc osteophyte complex. Superimposed right foraminal disc protrusion. Mild bilateral facet arthrosis. Narrowing of the spinal canal to 10 mm AP. Severe right and mild left neuroforaminal stenosis. SOFT TISSUES/RETROPERITON EUM: No paraspinal mass is seen. A neural stimulator is in place entering the posterior epidural space at T11-T12. IMPRESSION: Multilevel spondylosis with disc, endplate osteophyte, and facet degenerative changes. Narrowing of the spinal canal at the disc levels from L2 through S1, greatest at L3-L4 where the thecal sac is narrowed to just under 7 mm AP. Lateral recess stenosis at multiple levels, as well. Neuroforaminal stenosis that is severe bilaterally at L3 through L5 and on the right at L5-S1. [facility] [place] BASIC METABOLIC PANELon 11-25 Anion gap [Moles/Vol] 9 mmol/L 9 - 17 mmol/L [place], [place] Bun/Cre Ratio NOT REPORTED [place] Calcium [Mass/Vol] 8.8 mg/dL 8.6 - 10. 4 mg/dL [place] Chloride [Moles/Vol] 104 mmol/L 98 - 10 7 mmol/L [place] CO2 [Moles/Vol] 23 mmol/L 20 - 31 mmol/L [place] Creatinine [Mass/Vol] 0.83 mg/dL 0.7 - 1.2 mg/dL [place] GFR >60 >60 mL/min [place], [place] GFR Non- >60 >60 mL/min [place] GFR/1.73 sq M predicted among non-blacks MDRD (S/P/Bld) [Vol rate/Area] [place], [place] Comment on above: Average GFR for 50-5 9 years old: 93 mL/min/1.73sq m Chronic Kidney Disease: <60 mL/min/1.73sq m Kidney failure: <15 mL/min/1.73sq m eGFR calculated using average adult body mass. Additional eGFR calculator available at: http://www.Glimpse.com/multiple_crcl_2012.htm GFR/1.73 sq M predicted among non-blacks MDRD (S/P/Bld) [Vol rate/Area] NOT REPORTED [place], [place] Glucose [Mass/Vol] 91 mg/dL 70 - 99 mg/dL [place] Potassium [Moles/Vol] 4.2 mmol/L 3.7 - 5.3 mmol/L [place] Sodium [Moles/Vol] 136 mmol/L 135 - 144 mmol/L [place] Urea nitrogen [Mass/Vol] 11 mg/dL 6 - 20 mg/dL [place], [place] CBC WITH AUTO DIFFERENTIALon 12-13-2020 Basophils (Bld) [#/Vol] 0.03 10*3/uL [place] Basophils/100 WBC (Bld) 1 % 0 - 2 % [place] Differential Type NOT REPORTED [place] Eosinophils (Bld) [#/Vol] 0.07 10*3/uL [place] Eosinophils/100 WBC (Bld) 1 % 1 - 4 % [place] Erythrocyte distribution width (RBC) [Ratio] 13.5 % 11.8 - 14.4 % [place] Hematocrit (Bld) [Volume fraction] 42.6 % 40.7 - 50.3 % [place] Hemoglobin (Bld) [Mass/Vol] 14.2 g/dL 13 - 17 g/dL [place] Immature granulocytes (Bld) [#/Vol] 10*3/uL [place] Immature granulocytes (Bld) [#/Vol] 0 % 0 [place] Interpretation and review of laboratory results Abnormal [place] Lymphocytes (Bld) [#/Vol] 1.04 10*3/uL Low [place] Lymphocytes/100 WBC (Bld) 17 % Low 24 - 43 % [place] MCH (RBC) [Entitic mass] 27.0 pg 25.2 - 33.5 pg [place] MCHC (RBC) [Mass/Vol] 33.3 g/dL 28.4 - 34.8 g/dL [place] MCV (RBC) [Entitic vol] 81.1 fL Low 82.6 - 102.9 fL [place] Monocytes (Bld) [#/Vol] 0.71 10*3/uL [place] Monocytes/100 WBC (Bld) 12 % 3 - 12 % [place] Platelet mean volume (Bld) [Entitic vol] 9.5 fL 8.1 - 13.5 fL [place] Platelets (Bld) [#/Vol] NOT REPORTED [place] Platelets (Bld) [#/Vol] 358 10*3/uL [place] RBC (Bld) [#/Vol] 5.25 10*6/uL 4.21 - 5.7 7 m/uL [place] RBC morphology finding Nom (Bld) MICROCYTOSIS PRESENT [place], [place] Segmented neutrophils/100 WBC (Bld) 69 % High 36 - 65 % [place] Segs Absolute 4.11 [place] WBC (Bld) [#/Vol] 6.0 10*3/uL [place] WBC (Bld) [#/Vol] 0.0 10*3/uL 0.0 per 10 0 WBC [place] WBC Morphology NOT REPORTED [place], [place] Magnesiumon 12-13-2020 Magnesium [Mass/Vol] 1.9 mg/dL 1.6 - 2 .6 mg/dL [place] BASIC METABOLIC PANELon 11-25 Anion gap [Moles/Vol] 12 mmol/L 9 - 17 mmol/L [place] Bun/Cre Ratio NOT REPORTED [place] Calcium [Mass/Vol] 8.9 mg/dL 8.6 - 10. 4 mg/dL [place] Chloride [Moles/Vol] 102 mmol/L 98 - 10 7 mmol/L [place] CO2 [Moles/Vol] 21 mmol/L 20 - 31 mmol/L [place] Creatinine [Mass/Vol] 0.83 mg/dL 0.7 - 1.2 mg/dL [place] GFR >60 >60 mL/min [place] GFR Non- >60 >60 mL/min [place] GFR/1.73 sq M predicted among non-blacks MDRD (S/P/Bld) [Vol rate/Area] [place], [place] Comment on above: Average GFR for 50-5 9 years old: 93 mL/min/1.73sq m Chronic Kidney Disease: <60 mL/min/1.73sq m Kidney failure: <15 mL/min/1.73sq m eGFR calculated using average adult body mass. Additional eGFR calculator available at: http://www.OpTier.Authentix/multiple_crcl_2012.htm GFR/1.73 sq M predicted among non-blacks MDRD (S/P/Bld) [Vol rate/Area] NOT REPORTED [place], [place] Glucose [Mass/Vol] 91 mg/dL 70 - 99 mg/dL [place] Potassium [Moles/Vol] 4.3 mmol/L 3.7 - 5.3 mmol/L [place] Sodium [Moles/Vol] 135 mmol/L 135 - 144 mmol/L [place] Urea nitrogen [Mass/Vol] 12 mg/dL 6 - 20 mg/dL [place] CBC WITH AUTO DIFFERENTIALon 12-12-2020 Basophils (Bld) [#/Vol] 0.04 10*3/uL [place] Basophils/100 WBC (Bld) 1 % 0 - 2 % [place] Differential Type NOT REPORTED [place] Eosinophils (Bld) [#/Vol] 0.06 10*3/uL [place] Eosinophils/100 WBC (Bld) 1 % 1 - 4 % [place] Erythrocyte distribution width (RBC) [Ratio] 13.6 % 11.8 - 14.4 % [place] Hematocrit (Bld) [Volume fraction] 44.5 % 40.7 - 50.3 % [place] Hemoglobin (Bld) [Mass/Vol] 14.5 g/dL 13 - 17 g/dL [place] Immature granulocytes (Bld) [#/Vol] 0.03 10*3/uL [place] Immature granulocytes (Bld) [#/Vol] 0 % 0 [place] Interpretation and review of laboratory results Abnormal [place] Lymphocytes (Bld) [#/Vol] 1.26 10*3/uL [place] Lymphocytes/100 WBC (Bld) 17 % Low 24 - 43 % [place] MCH (RBC) [Entitic mass] 27.2 pg 25.2 - 33.5 pg [place] MCHC (RBC) [Mass/Vol] 32.6 g/dL 28.4 - 34.8 g/dL [place] MCV (RBC) [Entitic vol] 83.3 fL 82.6 - 102.9 fL [place] Monocytes (Bld) [#/Vol] 0.76 10*3/uL [place] Monocytes/100 WBC (Bld) 10 % 3 - 12 % [place] Platelet mean volume (Bld) [Entitic vol] 9.5 fL 8.1 - 13.5 fL [place] Platelets (Bld) [#/Vol] 359 10*3/uL [place] Platelets (Bld) [#/Vol] NOT REPORTED [place] RBC (Bld) [#/Vol] 5.34 10*6/uL 4.21 - 5.7 7 m/uL [place] RBC morphology finding Nom (Bld) NOT REPORTED [place] Segmented neutrophils/100 WBC (Bld) 71 % High 36 - 65 % [place] Segs Absolute 5.22 [place] WBC (Bld) [#/Vol] 7.4 10*3/uL [place] WBC (Bld) [#/Vol] 0.0 10*3/uL 0.0 per 10 0 WBC [place] WBC Morphology NOT REPORTED [place] Magnesiumon 12-12-2020 Magnesium [Mass/Vol] 2.1 mg/dL 1.6 - 2 .6 mg/dL [place] BASIC METABOLIC PANELon 11-25 Anion gap [Moles/Vol] 11 mmol/L 9 - 17 mmol/L [place] Bun/Cre Ratio NOT REPORTED [place] Calcium [Mass/Vol] 9.2 mg/dL 8.6 - 10. 4 mg/dL [place] Chloride [Moles/Vol] 104 mmol/L 98 - 10 7 mmol/L [place] CO2 [Moles/Vol] 22 mmol/L 20 - 31 mmol/L [place] Creatinine [Mass/Vol] 0.82 mg/dL 0.7 - 1.2 mg/dL [place] GFR >60 >60 mL/min [place] GFR Non- >60 >60 mL/min [place] GFR/1.73 sq M predicted among non-blacks MDRD (S/P/Bld) [Vol rate/Area] NOT REPORTED [place] GFR/1.73 sq M predicted among non-blacks MDRD (S/P/Bld) [Vol rate/Area] [place] Comment on above: Average GFR for 50-5 9 years old: 93 mL/min/1.73sq m Chronic Kidney Disease: <60 mL/min/1.73sq m Kidney failure: <15 mL/min/1.73sq m eGFR calculated using average adult body mass. Additional eGFR calculator available at: http://www.Glimpse.com/multiple_crcl_2011.htm Glucose [Mass/Vol] 87 mg/dL 70 - 99 mg/dL [place] Potassium [Moles/Vol] 4.2 mmol/L 3.7 - 5.3 mmol/L [place] Sodium [Moles/Vol] 137 mmol/L 135 - 144 mmol/L [place] Urea nitrogen [Mass/Vol] 12 mg/dL 6 - 20 mg/dL [place] CBC WITH AUTO DIFFERENTIALon 12-11-2020 Basophils (Bld) [#/Vol] 0.03 10*3/uL [place] Basophils/100 WBC (Bld) 1 % 0 - 2 % [place] Differential Type NOT REPORTED [place] Eosinophils (Bld) [#/Vol] 0.06 10*3/uL [place] Eosinophils/100 WBC (Bld) 1 % 1 - 4 % [place] Erythrocyte distribution width (RBC) [Ratio] 13.8 % 11.8 - 14.4 % [place] Hematocrit (Bld) [Volume fraction] 46.9 % 40.7 - 50.3 % [place] Hemoglobin (Bld) [Mass/Vol] 15.4 g/dL 13 - 17 g/dL [place] Immature granulocytes (Bld) [#/Vol] 1 % High 0 [place] Immature granulocytes (Bld) [#/Vol] 0.04 10*3/uL [place] Interpretation and review of laboratory results Abnormal [place] Lymphocytes (Bld) [#/Vol] 1.09 10*3/uL [place] Lymphocytes/100 WBC (Bld) 17 % Low 24 - 43 % [place] MCH (RBC) [Entitic mass] 26.9 pg 25.2 - 33.5 pg [place] MCHC (RBC) [Mass/Vol] 32.8 g/dL 28.4 - 34.8 g/dL [place] MCV (RBC) [Entitic vol] 81.8 fL Low 82.6 - 102.9 fL [place] Monocytes (Bld) [#/Vol] 0.58 10*3/uL [place] Monocytes/100 WBC (Bld) 9 % 3 - 12 % [place] Platelet mean volume (Bld) [Entitic vol] 9.2 fL 8.1 - 13.5 fL [place] Platelets (Bld) [#/Vol] NOT REPORTED [place] Platelets (Bld) [#/Vol] 343 10*3/uL [place] RBC (Bld) [#/Vol] 5.73 10*6/uL 4.21 - 5.7 7 m/uL [place] RBC morphology finding Nom (Bld) MICROCYTOSIS PRESENT [place] Segmented neutrophils/100 WBC (Bld) 71 % High 36 - 65 % [place] Segs Absolute 4.54 [place] WBC (Bld) [#/Vol] 0.0 10*3/uL 0.0 per 10 0 WBC [place] WBC (Bld) [#/Vol] 6.3 10*3/uL [place] WBC Morphology NOT REPORTED [place] Magnesiumon 12-11-2020 Magnesium [Mass/Vol] 1.9 mg/dL 1.6 - 2 .6 mg/dL [place] BASIC METABOLIC PANELon 11-25 Anion gap [Moles/Vol] 11 mmol/L 9 - 17 mmol/L [place] Bun/Cre Ratio NOT REPORTED [place] Calcium [Mass/Vol] 8.9 mg/dL 8.6 - 10. 4 mg/dL [place] Chloride [Moles/Vol] 101 mmol/L 98 - 10 7 mmol/L [place] CO2 [Moles/Vol] 22 mmol/L 20 - 31 mmol/L [place] Creatinine [Mass/Vol] 0.82 mg/dL 0.7 - 1.2 mg/dL [place] GFR >60 >60 mL/min [place] GFR Non- >60 >60 mL/min [place] GFR/1.73 sq M predicted among non-blacks MDRD (S/P/Bld) [Vol rate/Area] NOT REPORTED [place] GFR/1.73 sq M predicted among non-blacks MDRD (S/P/Bld) [Vol rate/Area] [place] Comment on above: Average GFR for 50-5 9 years old: 93 mL/min/1.73sq m Chronic Kidney Disease: <60 mL/min/1.73sq m Kidney failure: <15 mL/min/1.73sq m eGFR calculated using average adult body mass. Additional eGFR calculator available at: http://www.OpTier.[employer]hen[employer]ix/multiple_crcl_2012.htm Glucose [Mass/Vol] 91 mg/dL 70 - 99 mg/dL [place] Potassium [Moles/Vol] 4.4 mmol/L 3.7 - 5.3 mmol/L [place] Sodium [Moles/Vol] 134 mmol/L Low 135 - 144 mmol/L [place] Urea nitrogen [Mass/Vol] 13 mg/dL 6 - 20 mg/dL [place] CBC WITH AUTO DIFFERENTIALon 12-10-2020 Basophils (Bld) [#/Vol] 0.03 10*3/uL [place] Basophils/100 WBC (Bld) 1 % 0 - 2 % [place] Differential Type NOT REPORTED [place] Eosinophils (Bld) [#/Vol] 0.07 10*3/uL [place] Eosinophils/100 WBC (Bld) 1 % 1 - 4 % [place] Erythrocyte distribution width (RBC) [Ratio] 13.8 % 11.8 - 14.4 % [place] Hematocrit (Bld) [Volume fraction] 44.7 % 40.7 - 50.3 % [place] Hemoglobin (Bld) [Mass/Vol] 14.6 g/dL 13 - 17 g/dL [place] Immature granulocytes (Bld) [#/Vol] 0.03 10*3/uL [place] Immature granulocytes (Bld) [#/Vol] 1 % High 0 [place] Lymphocytes (Bld) [#/Vol] 1.13 10*3/uL [place] Lymphocytes/100 WBC (Bld) 18 % Low 24 - 43 % [place] MCH (RBC) [Entitic mass] 27.1 pg 25.2 - 33.5 pg [place] MCHC (RBC) [Mass/Vol] 32.7 g/dL 28.4 - 34.8 g/dL [place] MCV (RBC) [Entitic vol] 82.9 fL 82.6 - 102.9 fL [place] Monocytes (Bld) [#/Vol] 0.58 10*3/uL [place] Monocytes/100 WBC (Bld) 9 % 3 - 12 % [place] Platelet mean volume (Bld) [Entitic vol] 9.8 fL 8.1 - 13.5 fL [place] Platelets (Bld) [#/Vol] NOT REPORTED [place] Platelets (Bld) [#/Vol] 350 10*3/uL [place] RBC (Bld) [#/Vol] 5.39 10*6/uL 4.21 - 5.7 7 m/uL [place] RBC morphology finding Nom (Bld) NOT REPORTED [place] Segmented neutrophils/100 WBC (Bld) 70 % High 36 - 65 % [place] Segs Absolute 4.63 [place] WBC (Bld) [#/Vol] 0.0 10*3/uL 0.0 per 10 0 WBC [place] WBC (Bld) [#/Vol] 6.5 10*3/uL [place] WBC Morphology NOT REPORTED [place] Magnesiumon 12-10-2020 Magnesium [Mass/Vol] 2.0 mg/dL 1.6 - 2 .6 mg/dL [place] Otheron 12-10-2020 Interpretation and review of laboratory results Abnormal [place] BASIC METABOLIC PANELon 11-25 Anion gap [Moles/Vol] 9 mmol/L 9 - 17 mmol/L [place] Bun/Cre Ratio NOT REPORTED [place] Calcium [Mass/Vol] 8.9 mg/dL 8.6 - 10. 4 mg/dL [place] Chloride [Moles/Vol] 103 mmol/L 98 - 10 7 mmol/L [place] CO2 [Moles/Vol] 26 mmol/L 20 - 31 mmol/L [place] Creatinine [Mass/Vol] 0.88 mg/dL 0.7 - 1.2 mg/dL [place] GFR >60 >60 mL/min [place] GFR Non- >60 >60 mL/min [place] GFR/1.73 sq M predicted among non-blacks MDRD (S/P/Bld) [Vol rate/Area] NOT REPORTED [place] GFR/1.73 sq M predicted among non-blacks MDRD (S/P/Bld) [Vol rate/Area] [place] Comment on above: Average GFR for 50-5 9 years old: 93 mL/min/1.73sq m Chronic Kidney Disease: <60 mL/min/1.73sq m Kidney failure: <15 mL/min/1.73sq m eGFR calculated using average adult body mass. Additional eGFR calculator available at: http://www.Glimpse.com/multiple_crcl_2012.htm Glucose [Mass/Vol] 95 mg/dL 70 - 99 mg/dL [place] Potassium [Moles/Vol] 4.7 mmol/L 3.7 - 5.3 mmol/L [place] Sodium [Moles/Vol] 138 mmol/L 135 - 144 mmol/L [place] Urea nitrogen [Mass/Vol] 13 mg/dL 6 - 20 mg/dL [place] CBC WITH AUTO DIFFERENTIALon 12-09-2020 Basophils (Bld) [#/Vol] 10*3/uL [place] Basophils/100 WBC (Bld) 0 % 0 - 2 % [place] Differential Type NOT REPORTED [place] Eosinophils (Bld) [#/Vol] 0.04 10*3/uL [place] Eosinophils/100 WBC (Bld) 1 % 1 - 4 % [place] Erythrocyte distribution width (RBC) [Ratio] 13.9 % 11.8 - 14.4 % [place] Hematocrit (Bld) [Volume fraction] 45.5 % 40.7 - 50.3 % [place] Hemoglobin (Bld) [Mass/Vol] 15.0 g/dL 13 - 17 g/dL [place] Immature granulocytes (Bld) [#/Vol] 1 % High 0 [place] Immature granulocytes (Bld) [#/Vol] 0.03 10*3/uL [place] Interpretation and review of laboratory results Abnormal [place] Lymphocytes (Bld) [#/Vol] 0.97 10*3/uL [place] Lymphocytes/100 WBC (Bld) 15 % Low 24 - 43 % [place] MCH (RBC) [Entitic mass] 26.9 pg 25.2 - 33.5 pg [place] MCHC (RBC) [Mass/Vol] 33.0 g/dL 28.4 - 34.8 g/dL [place] MCV (RBC) [Entitic vol] 81.7 fL Low 82.6 - 102.9 fL [place] Monocytes (Bld) [#/Vol] 0.51 10*3/uL [place] Monocytes/100 WBC (Bld) 8 % 3 - 12 % [place] Platelet mean volume (Bld) [Entitic vol] 9.5 fL 8.1 - 13.5 fL [place] Platelets (Bld) [#/Vol] NOT REPORTED [place] Platelets (Bld) [#/Vol] 343 10*3/uL [place] RBC (Bld) [#/Vol] 5.57 10*6/uL 4.21 - 5.7 7 m/uL [place] RBC morphology finding Nom (Bld) MICROCYTOSIS PRESENT [place] Segmented neutrophils/100 WBC (Bld) 75 % High 36 - 65 % [place] Segs Absolute 4.75 [place] WBC (Bld) [#/Vol] 6.3 10*3/uL [place] WBC (Bld) [#/Vol] 0.0 10*3/uL 0.0 per 10 0 WBC [place] WBC Morphology NOT REPORTED [place] Magnesiumon 12-09-2020 Magnesium [Mass/Vol] 2.1 mg/dL 1.6 - 2 .6 mg/dL [place] VL TRANSCRANIAL DOPPLER COMP LETEon 12-09-2020 [facility] Vascular Transcranial Procedure Patient Name TROUT Date of Study 12/09/2020 ANIBAL Clark Date of 1970 Gender Male Age 50 year(s) Race Room Number 0540 Height: 69 inch, 175.26 cm Corporate ID [id number] Weight: 160 pounds, 72.6 kg # Patient Acct [id number] BSA: 1.88 m^2 BMI: 23.63 kg/m^2 # MR # [id number] Cue Selector Verónica Salinas, RVT Interpreting Physician Manolo Saravia Referring Referring Physician Samantha Husain MD Nurse Practitioner Additional Comments CLASSIFICATION OF VASOSPASM MEAN MCA VELOCITY ----- MCA/ICA VELOCITY RATIO ------- INTERPRETATION <120 cm/sec - less than 3 ------- Normal, nonspecific elevation or distal MCA spasm >120 cm/sec ---- 3 to 6 Mild vasospasm of proximal MCA >160 cm/sec ---- 3 to 6 Moderate vasospasm of proximal MCA >200 cm/sec greater than 6 ------ Severe vasospasm of proximal MCA. MEAN BASILAR ARTERY VELOCITY------- INTERPRETATION >60 cm/sec ---- Mild BA vasospasm >90 cm/sec ---- Moderate BA vasospasm >120 cm/sec -- Severe BA vasospasm. Procedure Type of Study: Cerebral: Transcranial. Indications for Study:Subarachnoid hemorrhage. Patient Status:In Patient. Conclusions Summary No evidence of vasospasm. Mean velocities in KARTHIK and STRINGED INSTRUMENT ASSEMBLER are considerably lower than the most recent study 2 days prior. Signature ---- ---- ---- ---- Findings: Right Impression: Left Impression: Right Lindegaard Ratio =2.19 Left Lindegaard Ratio =0.81 MEAN VELOCITIES: MEAN VELOCITIES: Transtemporal Approach. Transtemporal Approach. Proximal MCA: 45.8 . Proximal MCA: 30.8 . Mid MCA: 65.8 . Mid MCA: 30.8 . Distal MCA: 45.0 . Distal MCA: 30.8 . Proximal KARTHIK: 26.2 . Proximal KARTHIK: 28.9 . Mid KARTHIK: 30.0 . Mid KARTHIK: 28.9 . STRINGED INSTRUMENT ASSEMBLER: 25.0 . STRINGED INSTRUMENT ASSEMBLER: 21.2 . T ICA: 47.0 . T ICA: 50.0 . Submandibular Approach. Submandibular Approach. D ICA: 30.0 . D ICA: 38.1 . Transorbital Approach. Transorbital Approach. Siphon: 41.2 . Siphon: 42.4 . Transforamenal Approach. Transforamental Approach. Vertebral: 25.0 . Vertebral: 28.9 . Basilar: 51.2 [facility] [place], [place], [facility] Incoming Cardio Results From Cpacs/Ge - 12/09/2020 9:17 PM EST [facility] Vascular Transcranial Procedure Patient Name TROUT Date of Study 12/09/2020 ANIBAL Clark Date of 1970 Gender Male Age 50 year(s) Race Room Number 0540 Height: 69 inch, 175.26 cm Corporate ID [id number] Weight: 160 pounds, 72.6 kg # Patient Acct [id number] BSA: 1.88 m^2 BMI: 23.63 kg/m^2 # MR # [id number] Cue Selector Verónica Salinas, T Interpreting Physician Manolo Saravia Referring Referring Physician Samantha Husain MD Nurse Practitioner Additional Comments CLASSIFICATION OF VASOSPASM MEAN MCA VELOCITY ----- MCA/ICA VELOCITY RATIO ------- INTERPRETATION <120 cm/sec - less than 3 ------- Normal, nonspecific elevation or distal MCA spasm >120 cm/sec ---- 3 to 6 Mild vasospasm of proximal MCA >160 cm/sec ---- 3 to 6 Moderate vasospasm of proximal MCA >200 cm/sec greater than 6 ------ Severe vasospasm of proximal MCA. MEAN BASILAR ARTERY VELOCITY------- INTERPRETATION >60 cm/sec ---- Mild BA vasospasm >90 cm/sec ---- Moderate BA vasospasm >120 cm/sec -- Severe BA vasospasm. Procedure Type of Study: Cerebral: Transcranial. Indications for Study:Subarachnoid hemorrhage. Patient Status:In Patient. Conclusions Summary No evidence of vasospasm. Mean velocities in KARTHIK and STRINGED INSTRUMENT ASSEMBLER are considerably lower than the most recent study 2 days prior. Signature ---- ---- ---- ---- Findings: Right Impression: Left Impression: Right Lindegaard Ratio =2.19 Left Lindegaard Ratio =0.81 MEAN VELOCITIES: MEAN VELOCITIES: Transtemporal Approach. Transtemporal Approach. Proximal MCA: 45.8 . Proximal MCA: 30.8 . Mid MCA: 65.8 . Mid MCA: 30.8 . Distal MCA: 45.0 . Distal MCA: 30.8 . Proximal KARTHIK: 26.2 . Proximal KARTHIK: 28.9 . Mid KARTHIK: 30.0 . Mid KARTHIK: 28.9 . STRINGED INSTRUMENT ASSEMBLER: 25.0 . STRINGED INSTRUMENT ASSEMBLER: 21.2 . T ICA: 47.0 . T ICA: 50.0 . Submandibular Approach. Submandibular Approach. D ICA: 30.0 . D ICA: 38.1 . Transorbital Approach. Transorbital Approach. Siphon: 41.2 . Siphon: 42.4 . Transforamenal Approach. Transforamental Approach. Vertebral: 25.0 . Vertebral: 28.9 . Basilar: 51.2 [place] BASIC METABOLIC PANELon 11-25 Anion gap [Moles/Vol] 10 mmol/L 9 - 17 mmol/L [place] Bun/Cre Ratio NOT REPORTED [place] Calcium [Mass/Vol] 8.6 mg/dL 8.6 - 10. 4 mg/dL [place] Chloride [Moles/Vol] 103 mmol/L 98 - 10 7 mmol/L [place] CO2 [Moles/Vol] 25 mmol/L 20 - 31 mmol/L [place] Creatinine [Mass/Vol] 0.77 mg/dL 0.7 - 1.2 mg/dL [place] GFR >60 >60 mL/min [place] GFR Non- >60 >60 mL/min [place] GFR/1.73 sq M predicted among non-blacks MDRD (S/P/Bld) [Vol rate/Area] [place] Comment on above: Average GFR for 50-5 9 years old: 93 mL/min/1.73sq m Chronic Kidney Disease: <60 mL/min/1.73sq m Kidney failure: <15 mL/min/1.73sq m eGFR calculated using average adult body mass. Additional eGFR calculator available at: http://www.Glimpse.com/multiple_crcl_2012.htm GFR/1.73 sq M predicted among non-blacks MDRD (S/P/Bld) [Vol rate/Area] NOT REPORTED [place] Glucose [Mass/Vol] 89 mg/dL 70 - 99 mg/dL [place] Potassium [Moles/Vol] 3.9 mmol/L 3.7 - 5.3 mmol/L [place] Sodium [Moles/Vol] 138 mmol/L 135 - 144 mmol/L [place] Urea nitrogen [Mass/Vol] 12 mg/dL 6 - 20 mg/dL [place] CBC WITH AUTO DIFFERENTIALon 12-08-2020 Basophils (Bld) [#/Vol] 10*3/uL [place] Basophils/100 WBC (Bld) 0 % 0 - 2 % [place] Differential Type NOT REPORTED [place] Eosinophils (Bld) [#/Vol] 0.05 10*3/uL [place] Eosinophils/100 WBC (Bld) 1 % 1 - 4 % [place] Erythrocyte distribution width (RBC) [Ratio] 14.1 % 11.8 - 14.4 % [place] Hematocrit (Bld) [Volume fraction] 41.6 % 40.7 - 50.3 % [place] Hemoglobin (Bld) [Mass/Vol] 13.5 g/dL 13 - 17 g/dL [place] Immature granulocytes (Bld) [#/Vol] 0.03 10*3/uL [place] Immature granulocytes (Bld) [#/Vol] 0 % 0 [place] Interpretation and review of laboratory results Abnormal [place] Lymphocytes (Bld) [#/Vol] 1.35 10*3/uL [place] Lymphocytes/100 WBC (Bld) 20 % Low 24 - 43 % [place] MCH (RBC) [Entitic mass] 27.1 pg 25.2 - 33.5 pg [place] MCHC (RBC) [Mass/Vol] 32.5 g/dL 28.4 - 34.8 g/dL [place] MCV (RBC) [Entitic vol] 83.4 fL 82.6 - 102.9 fL [place] Monocytes (Bld) [#/Vol] 0.64 10*3/uL [place] Monocytes/100 WBC (Bld) 9 % 3 - 12 % [place] Platelet mean volume (Bld) [Entitic vol] 9.6 fL 8.1 - 13.5 fL [place] Platelets (Bld) [#/Vol] NOT REPORTED [place] Platelets (Bld) [#/Vol] 312 10*3/uL [place] RBC (Bld) [#/Vol] 4.99 10*6/uL 4.21 - 5.7 7 m/uL [place] RBC morphology finding Nom (Bld) NOT REPORTED [place] Segmented neutrophils/100 WBC (Bld) 70 % High 36 - 65 % [place] Segs Absolute 4.78 [place] WBC (Bld) [#/Vol] 0.0 10*3/uL 0.0 per 10 0 WBC [place] WBC (Bld) [#/Vol] 6.9 10*3/uL [place] WBC Morphology NOT REPORTED [place] Magnesiumon 12-08-2020 Magnesium [Mass/Vol] 1.7 mg/dL 1.6 - 2 .6 mg/dL [place] VL TRANSCRANIAL DOPPLER COMP LETEon 12-07-2020 [facility] Vascular Transcranial Procedure Patient Name TROUT Date of Study 12/07/2020 ANIBAL Clark Date of 1970 Gender Male Age 50 year(s) Race Room Number 0540 Height: 69 inch, 175.26 cm Corporate ID [id number] Weight: 160 pounds, 72.6 kg # Patient Acct [id number] BSA: 1.88 m^2 BMI: 23.63 kg/m^2 # MR # [id number] Cue Selector Verónica Salinas, T Interpreting Geraldo Levin Physician Referring Referring Physician EDITH DOMINGUEZ APRN-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 Nurse Practitioner Additional Comments CLASSIFICATION OF VASOSPASM MEAN MCA VELOCITY ----- MCA/ICA VELOCITY RATIO ------- INTERPRETATION <120 cm/sec - less than 3 ------- Normal, nonspecific elevation or distal MCA spasm >120 cm/sec ---- 3 to 6 Mild vasospasm of proximal MCA >160 cm/sec ---- 3 to 6 Moderate vasospasm of proximal MCA >200 cm/sec greater than 6 ------ Severe vasospasm of proximal MCA. MEAN BASILAR ARTERY VELOCITY------- INTERPRETATION >60 cm/sec ---- Mild BA vasospasm >90 cm/sec ---- Moderate BA vasospasm >120 cm/sec -- Severe BA vasospasm. Procedure Type of Study: Cerebral: Transcranial. Indications for Study:Subarachnoid hemorrhage. Patient Status:In Patient. Conclusions Summary Essentially normal bilateral transcranial Doppler with mild velocity elevation in the basilar artery. Signature ---- ---- ---- ---- Findings: Right Impression: Left Impression: Right Lindegaard Ratio = 2.36 Left Lindegaard Ratio =1.45 MEAN VELOCITIES: MEAN VELOCITIES: Transtemporal Approach. Transtemporal Approach. Proximal MCA: 67.4 . Proximal MCA: 73.5 . Mid MCA: 68.1 . Mid MCA: 69.7 . Distal MCA: 68.1 . Distal MCA: 67.8 . Proximal KARTHIK: 75.5 . Proximal KARTHIK: 75.5 . Mid KARTHIK: 73.9 . Mid KARTHIK: 77.8 . STRINGED INSTRUMENT ASSEMBLER: 26.9 . STRINGED INSTRUMENT ASSEMBLER: 40.8 . T ICA: 50.0 . T ICA: 57.0 . Submandibular Approach. Submandibular Approach. D ICA: 28.9 . D ICA: 50.8 . Transorbital Approach. Transorbital Approach. Siphon: 49.7 . Siphon: 32.0 . Transforamenal Approach. Transforamental Approach. Vertebral: 33.9 . Vertebral: 34.3 . Basilar: 62.4 Risk Factors Comments: subarachnoid bleed Hematocrit: 38.0 [facility] [place] [facility], [facility] Incoming Cardio Results From Cpacs/Ge - 12/07/2020 11:03 PM EST [facility] Vascular Transcranial Procedure Patient Name TROUT Date of Study 12/07/2020 ANIBAL Clark Date of 1970 Gender Male Age 50 year(s) Race Room Number 0540 Height: 69 inch, 175.26 cm Corporate ID [id number] Weight: 160 pounds, 72.6 kg # Patient Acct [id number] BSA: 1.88 m^2 BMI: 23.63 kg/m^2 # MR # [id number] Cue Selector Verónica Salnias Mona Interpreting Geraldo Levin Physician Referring Referring Physician EDITH DOMINGUEZ APRN-[facility] Nurse Practitioner Additional Comments CLASSIFICATION OF VASOSPASM MEAN MCA VELOCITY ----- MCA/ICA VELOCITY RATIO ------- INTERPRETATION <120 cm/sec - less than 3 ------- Normal, nonspecific elevation or distal MCA spasm >120 cm/sec ---- 3 to 6 Mild vasospasm of proximal MCA >160 cm/sec ---- 3 to 6 Moderate vasospasm of proximal MCA >200 cm/sec greater than 6 ------ Severe vasospasm of proximal MCA. MEAN BASILAR ARTERY VELOCITY------- INTERPRETATION >60 cm/sec ---- Mild BA vasospasm >90 cm/sec ---- Moderate BA vasospasm >120 cm/sec -- Severe BA vasospasm. Procedure Type of Study: Cerebral: Transcranial. Indications for Study:Subarachnoid hemorrhage. Patient Status:In Patient. Conclusions Summary Essentially normal bilateral transcranial Doppler with mild velocity elevation in the basilar artery. Signature ---- ---- ---- Electronically signed by Geraldo Levin([facility] physician) on 12/07/2020 11:02 PM ---- Findings: Right Impression: Left Impression: Right Lindegaard Ratio = 2.36 Left Lindegaard Ratio =1.45 MEAN VELOCITIES: MEAN VELOCITIES: Transtemporal Approach. Transtemporal Approach. Proximal MCA: 67.4 . Proximal MCA: 73.5 . Mid MCA: 68.1 . Mid MCA: 69.7 . Distal MCA: 68.1 . Distal MCA: 67.8 . Proximal KARTHIK: 75.5 . Proximal KARTHIK: 75.5 . Mid KARTHIK: 73.9 . Mid KARTHIK: 77.8 . STRINGED INSTRUMENT ASSEMBLER: 26.9 . STRINGED INSTRUMENT ASSEMBLER: 40.8 . T ICA: 50.0 . T ICA: 57.0 . Submandibular Approach. Submandibular Approach. D ICA: 28.9 . D ICA: 50.8 . Transorbital Approach. Transorbital Approach. Siphon: 49.7 . Siphon: 32.0 . Transforamenal Approach. Transforamental Approach. Vertebral: 33.9 . Vertebral: 34.3 . Basilar: 62.4 Risk Factors Comments: subarachnoid bleed Hematocrit: 38.0 [facility] [place] ECHO Complete 2D W Doppler W Coloron 12-06-2020 Transthoracic Echocardiography Report (TTE) Patient Name TROUT Date of Study 12/06/2020 ANIBAL Clark Date of 1970 Gender Male Age 50 year(s) Race Room Number 0540 Height: 69 inch, 175.26 cm Corporate ID [id number] Weight: 160 pounds, 72.6 kg # Patient Acct [id number] BSA: 1.88 m^2 BMI: 23.63 # kg/m^2 MR # [id number] Cue Selector WoodySharlene Interpreting Physician Davion Stanton Fellow Referring Nurse Practitioner Interpreting Referring Physician Xochitl Reeves Fellow Type of Study TTE procedure:2D Echocardiogram, M-Mode, Doppler, Color Doppler. Procedure Date Date: 12/06/2020 Start: 01:08 PM Study Location: [facility] Technical Quality: Good visualization Indications:Subarach noid hemorrhage. History / Tech. Comments: Procedure explained to patient. SAH, baseline for cardiac function Patient Status: Inpatient Height: 69 inches Weight: 160 pounds BSA: 1.88 m^2 BMI: 23.63 kg/m^2 HR: 56 bpm CONCLUSIONS Summary Left ventricle is normal in size. Global left ventricular systolic function is normal. Estimated ejection fraction is 55 % . Grade I (mild) left ventricular diastolic dysfunction. Left atrium is mildly dilated. Right atrium is mildly dilated. Mild aortic insufficiency. Mild mitral regurgitation. Trivial tricuspid regurgitation. Estimated right ventricular systolic pressure is 22 mmHg. Mild pulmonic insufficiency. Signature Electronically signed by [facility] on 12/06/2020 03:04 PM FINDINGS Left Atrium Left atrium is mildly dilated. Left Ventricle Left ventricle is normal in size. Global left ventricular systolic function is normal. Estimated ejection fraction is 55 % . Normal left ventricular wall thickness. Grade I (mild) left ventricular diastolic dysfunction. Right Atrium Right atrium is mildly dilated . Right Ventricle Normal right ventricular size and function. Mitral Valve Normal mitral valve structure. Mild mitral regurgitation. No mitral stenosis. Aortic Valve Aortic valve structure and function normal. Aortic valve is trileaflet. Mild aortic insufficiency. No aortic stenosis. Tricuspid Valve Normal tricuspid valve leaflets. Trivial tricuspid regurgitation. No tricuspid stenosis. Estimated right ventricular systolic pressure is 22 mmHg. Pulmonic Valve Pulmonic valve is normal in structure and function. Mild pulmonic insufficiency. No evidence of pulmonic stenosis. Pericardial Effusion No pericardial effusion. Miscellaneous Normal aortic root dimension. The ascending aorta is normal in size. E/E' average = 10.65. IVC normal diameter & inspiratory collapse indicating normal RA filling pressure . M-mode / 2D Measurements & Calculations: LVIDd:5.6 cm(3.7 - 5.6 cm) Diastolic Volume:202 ml LVIDs:3.6 cm(2.2 - 4.0 cm) Systolic Volume:85 ml IVSd:0.9 cm(0.6 - 1.1 cm) Aortic Root:2.9 cm(2.0 - 3.7 cm) LVPWd:1 cm(0.6 - 1.1 cm) LA Dimension: 3.9 cm(1.9 - 4.0 cm) Fractional Shortenin.71 % LA volume/Index: 72.95 ml /39m^2 Calculated LVEF (%): 57.92 % LVOT:2.2 cm RVDd:3.5 cm Mitral: Aortic Valve Area (P1/2-Time): 2.93 cm^2 Peak Velocity: 1.68 m/s Peak E-Wave: 1.02 m/s Mean Velocity: 1.20 m/s Peak A-Wave: 0.92 m/s Peak Gradient: 11.29 mmHg E/A Ratio: 1.11 Mean Gradient: 6 mmHg Peak Gradient: 4.16 mmHg Mean Gradient: 2 mmHg Deceleration Time: 239 msec Area (continuity): 2.55 cm^2 P1/2t: 75 msec AV VTI: 39.4 cm Area (continuity): 2.39 cm^2 Mean Velocity: 0.57 m/s Tricuspid: Pulmonic: Estimated RVSP: 22 mmHg Peak Velocity: 1.05 m/s Peak TR Velocity: 2.05 m/s Peak Gradient: 4.41 mmHg Peak TR Gradient: 16.81 mmHg Estimated RA Pressure: 5 mmHg Estimated PASP: 21.81 mmHg Diastology / Tissue Doppler Septal Wall E' velocity:0.10 m/s Septal Wall E/E':10.3 Lateral Wall E' velocity:0.09 m/s Lateral Wall E/E':11 [facility] [place] [facility], [facility] Incoming Cardio Results From [facility]/ - 12/06/2020 3:04 PM EST Transthoracic Echocardiography Report (TTE) Patient Name TROUT Date of Study 12/06/2020 ANIBAL Clark Date of 1970 Gender Male Age 50 year(s) Race Room Number 0540 Height: 69 inch, 175.26 cm Corporate ID [id number] Weight: 160 pounds, 72.6 kg # Patient Acct [id number] BSA: 1.88 m^2 BMI: 23.63 # kg/m^2 MR # [id number] Cue Selector Sharlene Mckay Interpreting Physician Davion Stanton Fellow Referring Nurse Practitioner Interpreting Referring Physician Xochitl Reeves Fellow Type of Study TTE procedure:2D Echocardiogram, M-Mode, Doppler, Color Doppler. Procedure Date Date: 12/06/2020 Start: 01:08 PM Study Location: [facility] Technical Quality: Good visualization Indications:Subarach noid hemorrhage. History / Tech. Comments: Procedure explained to patient. SAH, baseline for cardiac function Patient Status: Inpatient Height: 69 inches Weight: 160 pounds BSA: 1.88 m^2 BMI: 23.63 kg/m^2 HR: 56 bpm CONCLUSIONS Summary Left ventricle is normal in size. Global left ventricular systolic function is normal. Estimated ejection fraction is 55 % . Grade I (mild) left ventricular diastolic dysfunction. Left atrium is mildly dilated. Right atrium is mildly dilated. Mild aortic insufficiency. Mild mitral regurgitation. Trivial tricuspid regurgitation. Estimated right ventricular systolic pressure is 22 mmHg. Mild pulmonic insufficiency. Signature - - - Electron[facility] on 12/06/2020 03:04 PM - FINDINGS Left Atrium Left atrium is mildly dilated. Left Ventricle Left ventricle is normal in size. Global left ventricular systolic function is normal. Estimated ejection fraction is 55 % . Normal left ventricular wall thickness. Grade I (mild) left ventricular diastolic dysfunction. Right Atrium Right atrium is mildly dilated . Right Ventricle Normal right ventricular size and function. Mitral Valve Normal mitral valve structure. Mild mitral regurgitation. No mitral stenosis. Aortic Valve Aortic valve structure and function normal. Aortic valve is trileaflet. Mild aortic insufficiency. No aortic stenosis. Tricuspid Valve Normal tricuspid valve leaflets. Trivial tricuspid regurgitation. No tricuspid stenosis. Estimated right ventricular systolic pressure is 22 mmHg. Pulmonic Valve Pulmonic valve is normal in structure and function. Mild pulmonic insufficiency. No evidence of pulmonic stenosis. Pericardial Effusion No pericardial effusion. Miscellaneous Normal aortic root dimension. The ascending aorta is normal in size. E/E' average = 10.65. IVC normal diameter & inspiratory collapse indicating normal RA filling pressure . M-mode / 2D Measurements & Calculations: LVIDd:5.6 cm(3.7 - 5.6 cm) Diastolic Volume:202 ml LVIDs:3.6 cm(2.2 - 4.0 cm) Systolic Volume:85 ml IVSd:0.9 cm(0.6 - 1.1 cm) Aortic Root:2.9 cm(2.0 - 3.7 cm) LVPWd:1 cm(0.6 - 1.1 cm) LA Dimension: 3.9 cm(1.9 - 4.0 cm) Fractional Shortenin.71 % LA volume/Index: 72.95 ml /39m^2 Calculated LVEF (%): 57.92 % LVOT:2.2 cm RVDd:3.5 cm Mitral: Aortic Valve Area (P1/2-Time): 2.93 cm^2 Peak Velocity: 1.68 m/s Peak E-Wave: 1.02 m/s Mean Velocity: 1.20 m/s Peak A-Wave: 0.92 m/s Peak Gradient: 11.29 mmHg E/A Ratio: 1.11 Mean Gradient: 6 mmHg Peak Gradient: 4.16 mmHg Mean Gradient: 2 mmHg Deceleration Time: 239 msec Area (continuity): 2.55 cm^2 P1/2t: 75 msec AV VTI: 39.4 cm Area (continuity): 2.39 cm^2 Mean Velocity: 0.57 m/s Tricuspid: Pulmonic: Estimated RVSP: 22 mmHg Peak Velocity: 1.05 m/s Peak TR Velocity: 2.05 m/s Peak Gradient: 4.41 mmHg Peak TR Gradient: 16.81 mmHg Estimated RA Pressure: 5 mmHg Estimated PASP: 21.81 mmHg Diastology / Tissue Doppler Septal Wall E' velocity:0.10 m/s Septal Wall E/E':10.3 Lateral Wall E' velocity:0.09 m/s Lateral Wall E/E':11 [place] Basic Metabolic Panelon 11-25 Anion gap [Moles/Vol] 8 mmol/L Low 9 - 17 mmol/L [place] Bun/Cre Ratio NOT REPORTED [place] Calcium [Mass/Vol] 8.1 mg/dL Low 8.6 - 10. 4 mg/dL [place] Chloride [Moles/Vol] 109 mmol/L High 98 - 10 7 mmol/L [place] CO2 [Moles/Vol] 20 mmol/L 20 - 31 mmol/L [place] Creatinine [Mass/Vol] 0.77 mg/dL 0.7 - 1.2 mg/dL [place] GFR >60 >60 mL/min [place] GFR Non- >60 >60 mL/min [place] GFR/1.73 sq M predicted among non-blacks MDRD (S/P/Bld) [Vol rate/Area] [place] Comment on above: Average GFR for 50-5 9 years old: 93 mL/min/1.73sq m Chronic Kidney Disease: <60 mL/min/1.73sq m Kidney failure: <15 mL/min/1.73sq m eGFR calculated using average adult body mass. Additional eGFR calculator available at: http://www.OpTier.Authentix/multiple_crcl_2012.htm GFR/1.73 sq M predicted among non-blacks MDRD (S/P/Bld) [Vol rate/Area] NOT REPORTED [place] Glucose [Mass/Vol] 119 mg/dL High 70 - 99 mg/dL [place] Interpretation and review of laboratory results Abnormal [place] Potassium [Moles/Vol] 4.1 mmol/L 3.7 - 5.3 mmol/L [place] Sodium [Moles/Vol] 137 mmol/L 135 - 144 mmol/L [place] Urea nitrogen [Mass/Vol] 8 mg/dL 6 - 20 mg/dL [place] CBC Auto Differentialon 11-25 Basophils (Bld) [#/Vol] 0.00 10*3/uL [place] Basophils/100 WBC (Bld) 0 % 0 - 2 % [place] Differential Type NOT REPORTED [place] Eosinophils (Bld) [#/Vol] 0.00 10*3/uL [place] Eosinophils/100 WBC (Bld) 0 % Low 1 - 4 % [place] Erythrocyte distribution width (RBC) [Ratio] 15.0 % High 11.8 - 14.4 % [place] Hematocrit (Bld) [Volume fraction] 38.0 % Low 40.7 - 50.3 % [place] Hemoglobin (Bld) [Mass/Vol] 12.5 g/dL Low 13 - 17 g/dL [place] Immature granulocytes (Bld) [#/Vol] 0.08 10*3/uL [place] Immature granulocytes (Bld) [#/Vol] 1 % High 0 [place] Interpretation and review of laboratory results Abnormal [place] Lymphocytes (Bld) [#/Vol] 0.46 10*3/uL Low [place] Lymphocytes/100 WBC (Bld) 6 % Low 24 - 43 % [place] MCH (RBC) [Entitic mass] 27.1 pg 25.2 - 33.5 pg [place] MCHC (RBC) [Mass/Vol] 32.9 g/dL 28.4 - 34.8 g/dL [place] MCV (RBC) [Entitic vol] 82.4 fL Low 82.6 - 102.9 fL [place] Monocytes (Bld) [#/Vol] 0.23 10*3/uL [place] Monocytes/100 WBC (Bld) 3 % 3 - 12 % [place] Morphology Hari (Bld) [Interp] ANISOCYTOSIS PRESENT [place] Platelet mean volume (Bld) [Entitic vol] 9.9 fL 8.1 - 13.5 fL [place] Platelets (Bld) [#/Vol] 275 10*3/uL [place] Platelets (Bld) [#/Vol] NOT REPORTED [place] RBC (Bld) [#/Vol] 4.61 10*6/uL 4.21 - 5.7 7 m/uL [place] RBC morphology finding Nom (Bld) NOT REPORTED [place] Segmented neutrophils/100 WBC (Bld) 90 % High 36 - 65 % [place] Segs Absolute 6.83 [place] WBC (Bld) [#/Vol] 0.0 10*3/uL 0.0 per 10 0 WBC [place] WBC (Bld) [#/Vol] 7.6 10*3/uL [place] WBC Morphology NOT REPORTED [place] Magnesiumon 12-05-2020 Magnesium [Mass/Vol] 2.0 mg/dL 1.6 - 2 .6 mg/dL [place] Basic metabolic panelon 11-25 Anion gap [Moles/Vol] 12 mmol/L 9 - 17 mmol/L [place] Bun/Cre Ratio NOT REPORTED [place] Calcium [Mass/Vol] 8.4 mg/dL Low 8.6 - 10. 4 mg/dL [place] Chloride [Moles/Vol] 104 mmol/L 98 - 10 7 mmol/L [place] CO2 [Moles/Vol] 20 mmol/L 20 - 31 mmol/L [place] Creatinine [Mass/Vol] 0.72 mg/dL 0.7 - 1.2 mg/dL [place] GFR >60 >60 mL/min [place] GFR Non- >60 >60 mL/min [place] GFR/1.73 sq M predicted among non-blacks MDRD (S/P/Bld) [Vol rate/Area] [place], [place] Comment on above: Average GFR for 50-5 9 years old: 93 mL/min/1.73sq m Chronic Kidney Disease: <60 mL/min/1.73sq m Kidney failure: <15 mL/min/1.73sq m eGFR calculated using average adult body mass. Additional eGFR calculator available at: http://www.Glimpse.com/multiple_crcl_2012.htm GFR/1.73 sq M predicted among non-blacks MDRD (S/P/Bld) [Vol rate/Area] NOT REPORTED [place] Glucose [Mass/Vol] 112 mg/dL High 70 - 99 mg/dL [place] Potassium [Moles/Vol] 3.8 mmol/L 3.7 - 5.3 mmol/L [place] Sodium [Moles/Vol] 136 mmol/L 135 - 144 mmol/L [place] Urea nitrogen [Mass/Vol] 9 mg/dL 6 - 20 mg/dL [place] CBCon 12-04-2020 Erythrocyte distribution width (RBC) [Ratio] 14.7 % High 11.8 - 14.4 % [place] Hematocrit (Bld) [Volume fraction] 42.0 % 40.7 - 50.3 % [place] Hemoglobin (Bld) [Mass/Vol] 13.3 g/dL 13 - 17 g/dL [place] MCH (RBC) [Entitic mass] 26.6 pg 25.2 - 33.5 pg [place] MCHC (RBC) [Mass/Vol] 31.7 g/dL 28.4 - 34.8 g/dL [place] MCV (RBC) [Entitic vol] 84.0 fL 82.6 - 102.9 fL [place] Platelet mean volume (Bld) [Entitic vol] 9.3 fL 8.1 - 13.5 fL [place] Platelets (Bld) [#/Vol] 264 10*3/uL [place] RBC (Bld) [#/Vol] 5.00 10*6/uL 4.21 - 5.7 7 m/uL [place] WBC (Bld) [#/Vol] 6.8 10*3/uL [place] WBC (Bld) [#/Vol] 0.0 10*3/uL 0.0 per 10 0 WBC [place] Hemoglobin A1con 12-04-2020 Glucose [Mass/Vol] 105 mg/dL [place] Comment on above: The ADA and AACC rec ommend providing the estimated average glucose result to permit better patient understanding of their HBA1c result. HbA1c (Bld) [Mass fraction] 5.3 % 4 - 6 % [place] Lipid panel - fastingon 11-25 Cholesterol [Mass/Vol] 182 mg/dL <200 [place] Comment on above: Cholesterol Guidelines: <200 Desirable 200-240 Borderline >240 Undesirable Cholesterol in HDL [Mass/Vol] 68 mg/dL >40 [place] Comment on above: HDL Guidelines: <40 Undesirable 40-59 Borderline >59 Desirable Cholesterol in LDL [Mass/Vol] 107 mg/dL 0 - 130 mg/dL [place] Comment on above: LDL Guidelines: <100 Desirable 100-129 Near to/above Desirable 130-159 Borderline >159 Undesirable Direct (measured) LDL and calculated LDL are not interchangeable tests. Cholesterol in VLDL [Mass/Vol] NOT REPORTED 1 - 30 mg/dL [place] Cholesterol.total/Chol esterol in HDL [Mass ratio] 2.7 {ratio} <5 [place] Triglyceride [Mass/Vol] 34 mg/dL <150 [place], [place] Comment on above: Triglyceride Guidelines: <150 Desirable 150-199 Borderline 200-499 High >499 Very high Based on AHA Guidelines for fasting triglyceride, August 2012. Magnesiumon 12-04-2020 Magnesium [Mass/Vol] 1.9 mg/dL 1.6 - 2 .6 mg/dL [place] Otheron 12-04-2020 Interpretation and review of laboratory results Abnormal [place] Troponinon 12-04-2020 Troponin I.cardiac [Mass/Vol] NOT REPORTED [place] Troponin T.cardiac [Mass/Vol] NOT REPORTED <0.03 ng/mL [place] Troponin, High Sensitivity 6 ng/L 0 - 22 ng/L [place] Comment on above: High Sensitivity Troponin values cannot be compared with other Troponin methodologies. Patients with high levels of Biotin oral intake (i.e >5mg/day) may have falsely decreased Troponin levels. Samples collected within 8 hours of biotin intake may require additional information for diagnosis. APTTon 12-03-2020 aPTT Coag (d) [Time] 26.4 s [place] Comment on above: IV Heparin Therapy Range: 48.6-77.8 Anion Gap (Calc) POCon 12-03 Anion gap [Moles/Vol] 7 mmol/L 7 - 16 mmol/L [place] BASIC METABOLIC PANELon Anion gap [Moles/Vol] 10 mmol/L 9 - 17 mmol/L [place] Bun/Cre Ratio NOT REPORTED [place] Calcium [Mass/Vol] 9.0 mg/dL 8.6 - 10. 4 mg/dL [place] Chloride [Moles/Vol] 104 mmol/L 98 - 10 7 mmol/L [place] CO2 [Moles/Vol] 22 mmol/L 20 - 31 mmol/L [place] Creatinine [Mass/Vol] 0.8 mg/dL 0.7 - 1.2 mg/dL [place] GFR >60 >60 mL/min [place] GFR/1.73 sq M predicted among non-blacks MDRD (S/P/Bld) [Vol rate/Area] NOT REPORTED [place] Glucose [Mass/Vol] 100 mg/dL High 70 - 99 mg/dL [place] Potassium [Moles/Vol] 3.9 mmol/L 3.7 - 5.3 mmol/L [place] Sodium [Moles/Vol] 136 mmol/L 135 - 144 mmol/L [place] Urea nitrogen [Mass/Vol] 12 mg/dL 6 - 20 mg/dL [place] CALCIUM, IONIC (POC)on 12-03 POC Ionized Calcium 1.18 mmol/L 1.15 - 1 .33 mmol/L [place] CBC WITH AUTO DIFFERENTIALon 12-03-2020 Basophils (Bld) [#/Vol] 0.03 10*3/uL [place] Basophils/100 WBC (Bld) 0 % 0 - 2 % [place] Differential Type NOT REPORTED [place] Eosinophils (Bld) [#/Vol] 10*3/uL [place] Eosinophils/100 WBC (Bld) 0 % Low 1 - 4 % [place] Erythrocyte distribution width (RBC) [Ratio] 14.6 % High 11.8 - 14.4 % [place] Hematocrit (Bld) [Volume fraction] 45.5 % 40.7 - 50.3 % [place] Hemoglobin (Bld) [Mass/Vol] 14.7 g/dL 13 - 17 g/dL [place] Immature granulocytes (Bld) [#/Vol] 0.03 10*3/uL [place] Immature granulocytes (Bld) [#/Vol] 0 % 0 [place] Lymphocytes (Bld) [#/Vol] 1.20 10*3/uL [place] Lymphocytes/100 WBC (Bld) 14 % Low 24 - 43 % [place] MCH (RBC) [Entitic mass] 27.1 pg 25.2 - 33.5 pg [place] MCHC (RBC) [Mass/Vol] 32.3 g/dL 28.4 - 34.8 g/dL [place] MCV (RBC) [Entitic vol] 83.8 fL 82.6 - 102.9 fL [place] Monocytes (Bld) [#/Vol] 0.53 10*3/uL [place] Monocytes/100 WBC (Bld) 6 % 3 - 12 % [place] Platelet mean volume (Bld) [Entitic vol] 9.6 fL 8.1 - 13.5 fL [place] Platelets (Bld) [#/Vol] NOT REPORTED [place] Platelets (Bld) [#/Vol] 323 10*3/uL [place] RBC (Bld) [#/Vol] 5.43 10*6/uL 4.21 - 5.7 7 m/uL [place] RBC morphology finding Nom (Bld) ANISOCYTOSIS PRESENT [place] Segmented neutrophils/100 WBC (Bld) 80 % High 36 - 65 % [place] Segs Absolute 6.63 [place] WBC (Bld) [#/Vol] 0.0 10*3/uL 0.0 per 10 0 WBC [place] WBC (Bld) [#/Vol] 8.4 10*3/uL [place] WBC Morphology NOT REPORTED [place] CHLORIDE (POC)on 12-03-2020 Chloride [Moles/Vol] 106 mmol/L 98 - 10 7 mmol/L [place] COVID-19on 12-03-2020 SARS-CoV-2, Rapid Not Detected Not Detected [place], [place] Comment on above: Rapid NAAT: The specimen is NEGATIVE for SARS-CoV-2, the novel coronavirus associated with COVID-19. The ID NOW COVID-19 assay is designed to detect the virus that causes COVID-19 in patients with signs and symptoms of infection who are suspected of COVID-19. An individual without symptoms of COVID-19 and who is not shedding SARS-CoV-2 virus would expect to have a negative (not detected) result in this assay. Negative results should be treated as presumptive and, if inconsistent with clinical signs and symptoms or necessary for patient management, should be tested with an alternative molecular assay. Negative results do not preclude SARS-CoV-2 infection and should not be used as the sole basis for patient management decisions. Fact sheet for Healthcare Providers: https://www.fda.gov/media/218177/download Fact sheet for Patients: https://www.fda.gov/media/311060/download Methodology: Isothermal Nucleic Acid Amplification Source .NASOPHARYNGEAL SWAB [place], [place] CT HEAD WO CONTRASTon 2020 INR Coag (Bld) [Relative time] Addendum by Darryn Lam MD on 12/03/2020 7:50 PM ADDENDUM: Discussed with Dr. Arias at 7:46 p.m. [place] Subarachnoid hemorrhage as above. RECOMMENDATIONS: The findings were sent to the Radiology Results Communication Center at 7:34 pm on 12/03/2020to be communicated to a licensed caregiver. [place], [place] EXAMINATION: CT OF THE HEAD WITHOUT CONTRAST 12/03/2020 7:20 pm TECHNIQUE: CT of the head was performed without the administration of intravenous contrast. Dose modulation, iterative reconstruction, and/or weight based adjustment of the mA/kV was utilized to reduce the radiation dose to as low as reasonably achievable. COMPARISON: None. HISTORY: ORDERING SYSTEM PROVIDED HISTORY: SAH TECHNOLOGIST PROVIDED HISTORY: SAH Reason for Exam: SAH Acuity: Acute Type of Exam: Initial FINDINGS: BRAIN/VENTRICLES: There is no acute intracranial hemorrhage, mass effect or midline shift. No abnormal extra-axial fluid collection. The barney-white differentiation is maintained without evidence of an acute infarct. There is no evidence of hydrocephalus. Subarachnoid hemorrhage interpeduncular cistern and ambient cisterns left greater than right. ORBITS: The visualized portion of the orbits demonstrate no acute abnormality. SINUSES: The visualized paranasal sinuses and mastoid air cells demonstrate no acute abnormality. SOFT TISSUES/SKULL: No acute abnormality of the visualized skull or soft tissues. [place], [place] Mac, pn Incoming Radiant Results From [facility] - 12/03/2020 7:38 PM EST EXAMINATION: CT OF THE HEAD WITHOUT CONTRAST 12/03/2020 7:20 pm TECHNIQUE: CT of the head was performed without the administration of intravenous contrast. Dose modulation, iterative reconstruction, and/or weight based adjustment of the mA/kV was utilized to reduce the radiation dose to as low as reasonably achievable. COMPARISON: None. HISTORY: ORDERING SYSTEM PROVIDED HISTORY: SAH TECHNOLOGIST PROVIDED HISTORY: SAH Reason for Exam: SAH Acuity: Acute Type of Exam: Initial FINDINGS: BRAIN/VENTRICLES: There is no acute intracranial hemorrhage, mass effect or midline shift. No abnormal extra-axial fluid collection. The barney-white differentiation is maintained without evidence of an acute infarct. There is no evidence of hydrocephalus. Subarachnoid hemorrhage interpeduncular cistern and ambient cisterns left greater than right. ORBITS: The visualized portion of the orbits demonstrate no acute abnormality. SINUSES: The visualized paranasal sinuses and mastoid air cells demonstrate no acute abnormality. SOFT TISSUES/SKULL: No acute abnormality of the visualized skull or soft tissues. IMPRESSION: Subarachnoid hemorrhage as above. RECOMMENDATIONS: The findings were sent to the Radiology Results Communication Center at 7:34 pm on 12/03/2020to be communicated to a licensed caregiver. [employer] [place] CTA HEAD NECK W CONTRASTon 0 12-03-2020 60% stenosis proximal right internal carotid artery. Less than 50% stenosis proximal left internal carotid artery. Moderate stenosis origin of the vertebral arteries bilaterally.. [employer] [place] EXAMINATION: CTA OF THE HEAD AND NECK WITH CONTRAST 12/03/2020 7:25 pm: TECHNIQUE: CTA of the head and neck was performed with the administration of intravenous contrast. Multiplanar reformatted images are provided for review. MIP images are provided for review. Stenosis of the internal carotid arteries measured using NASCET criteria. Dose modulation, iterative reconstruction, and/or weight based adjustment of the mA/kV was utilized to reduce the radiation dose to as low as reasonably achievable. COMPARISON: CT head from today HISTORY: ORDERING SYSTEM PROVIDED HISTORY: SAH TECHNOLOGIST PROVIDED HISTORY: SAH Reason for Exam: SAH Acuity: Acute Type of Exam: Initial FINDINGS: CTA NECK: AORTIC ARCH/ARCH VESSELS: No dissection or arterial injury. No significant stenosis of the brachiocephalic or subclavian arteries. CAROTID ARTERIES: 60% stenosis proximal right internal carotid artery due to soft plaque. Less than 50% stenosis proximal left internal carotid artery. Internal, and external and common carotid arteries are otherwise normal. VERTEBRAL ARTERIES: Focal calcified plaque causes moderate stenosis at the origin of the vertebral arteries bilaterally. Focal plaque V4 segment distal left vertebral artery causes less than 50% stenosis. SOFT TISSUES: The lung apices are clear. No cervical or superior mediastinal lymphadenopathy. The larynx and pharynx are unremarkable. No acute abnormality of the salivary and thyroid glands. BONES: No acute osseous abnormality. Intraspinal electrodes noted posteriorly in the cervical spine. CTA HEAD: ANTERIOR CIRCULATION: No significant stenosis of the intracranial internal carotid, anterior cerebral, or middle cerebral arteries. No aneurysm. POSTERIOR CIRCULATION: No significant stenosis of the vertebral, basilar, or posterior cerebral arteries. No aneurysm. Posterior communicating arteries noted bilaterally. OTHER: No dural venous sinus thrombosis on this non-dedicated study. BRAIN: No mass effect or midline shift. No extra-axial fluid collection. The barney-white differentiation is maintained. [facility], [facility] Incoming Radiant Results From [facility] - 12/03/2020 9:01 PM EST EXAMINATION: CTA OF THE HEAD AND NECK WITH CONTRAST 12/03/2020 7:25 pm: TECHNIQUE: CTA of the head and neck was performed with the administration of intravenous contrast. Multiplanar reformatted images are provided for review. MIP images are provided for review. Stenosis of the internal carotid arteries measured using NASCET criteria. Dose modulation, iterative reconstruction, and/or weight based adjustment of the mA/kV was utilized to reduce the radiation dose to as low as reasonably achievable. COMPARISON: CT head from today HISTORY: ORDERING SYSTEM PROVIDED HISTORY: SAH TECHNOLOGIST PROVIDED HISTORY: SAH Reason for Exam: SAH Acuity: Acute Type of Exam: Initial FINDINGS: CTA NECK: AORTIC ARCH/ARCH VESSELS: No dissection or arterial injury. No significant stenosis of the brachiocephalic or subclavian arteries. CAROTID ARTERIES: 60% stenosis proximal right internal carotid artery due to soft plaque. Less than 50% stenosis proximal left internal carotid artery. Internal, and external and common carotid arteries are otherwise normal. VERTEBRAL ARTERIES: Focal calcified plaque causes moderate stenosis at the origin of the vertebral arteries bilaterally. Focal plaque V4 segment distal left vertebral artery causes less than 50% stenosis. SOFT TISSUES: The lung apices are clear. No cervical or superior mediastinal lymphadenopathy. The larynx and pharynx are unremarkable. No acute abnormality of the salivary and thyroid glands. BONES: No acute osseous abnormality. Intraspinal electrodes noted posteriorly in the cervical spine. CTA HEAD: ANTERIOR CIRCULATION: No significant stenosis of the intracranial internal carotid, anterior cerebral, or middle cerebral arteries. No aneurysm. POSTERIOR CIRCULATION: No significant stenosis of the vertebral, basilar, or posterior cerebral arteries. No aneurysm. Posterior communicating arteries noted bilaterally. OTHER: No dural venous sinus thrombosis on this non-dedicated study. BRAIN: No mass effect or midline shift. No extra-axial fluid collection. The barney-white differentiation is maintained. IMPRESSION: 60% stenosis proximal right internal carotid artery. Less than 50% stenosis proximal left internal carotid artery. Moderate stenosis origin of the vertebral arteries bilaterally.. [facility] Creatinine W/GFR Point of Ca reon 12-03-2020 Creatinine [Mass/Vol] 0.93 mg/dL 0.51 - 1.19 mg/dL [place] GFR/1.73 sq M predicted among non-blacks MDRD (S/P/Bld) [Vol rate/Area] mL/min/{1.73_m2} >60 mL/min [place] Hemoglobin and hematocrit, b loodon 12-03-2020 Hematocrit (Bld) [Volume fraction] 47 % 41 - 53 % [place] Hemoglobin (Bld) [Mass/Vol] 16.0 g/dL 13.5 - 17.5 g/dL [place] Lactic Acid, POCon POC Lactic Acid 0.68 mmol/L 0.56 - 1.39 mmol/L [place] Metabolic Panelon 12-03-2020 GFR/1.73 sq M predicted among non-blacks MDRD (S/P/Bld) [Vol rate/Area] [place], [place] Comment on above: Average GFR for 50-5 9 years old: 93 mL/min/1.73sq m Chronic Kidney Disease: <60 mL/min/1.73sq m Kidney failure: <15 mL/min/1.73sq m eGFR calculated using average adult body mass. Additional eGFR calculator available at: http://www.Glimpse.com/multiple_crcl_2012.htm Otheron 12-03-2020 GFR Non- >60 >60 mL/min [place] Interpretation and review of laboratory results Abnormal [place] SARS-CoV-2 [place] POCT Glucoseon 12-03-2020 Glucose [Mass/Vol] 110 mg/dL High 74 - 100 mg/dL [place] POTASSIUM (POC)on 12-03-2020 Potassium [Moles/Vol] 3.8 mmol/L 3.5 - 4.5 mmol/L [place] Protime-INRon 12-03-2020 INR Coag (PPP) [Relative time] 1.0 {INR} [place], [place] Comment on above: Therapeutic Range: Moderate Anticoagulant Intensity: INR = 2.0-3.0 High Anticoagulant Intensity: INR = 2.5-3.5 PT Coag (PPP) [Time] 10.3 s [place] SODIUM (POC)on 12-03-2020 Sodium [Moles/Vol] 140 mmol/L 138 - 146 mmol/L [place] Urine Drug Screenon 12-03-19 21 Amphetamine Screen, Ur Negative NEGATIVE [place] Comment on above: (Positive cutoff 1000 ng/mL) Barbiturate Screen, Ur Negative NEGATIVE [place] Comment on above: (Positive cutoff 200 ng/mL) Benzodiazepine Screen, Urine Negative NEGATIVE [place] Comment on above: (Positive cutoff 200 ng/mL) Buprenorphine Urine NOT REPORTED NEGATIVE [place] Cannabinoid Scrn, Ur Negative NEGATIVE [place] Comment on above: (Positive cutoff 50 ng/mL) Cocaine Metabolite, Urine Negative NEGATIVE [place] Comment on above: (Positive cutoff 300 ng/mL) Interpretation and review of laboratory results Abnormal [place] MDMA, Urine NOT REPORTED NEGATIVE [place] Methadone Screen, Urine Negative NEGATIVE [place] Comment on above: (Positive cutoff 300 ng/mL) Methamphetamine, Urine NOT REPORTED NEGATIVE [place] Opiates, Urine Positive Abnormal NEGATIVE [place] Comment on above: (Positive cutoff 300 ng/mL) Oxycodone Screen, Ur Negative NEGATIVE [place] Comment on above: (Positive cutoff 100 ng/mL) Phencyclidine, Urine Negative NEGATIVE [place] Comment on above: (Positive cutoff 25 ng/mL) Propoxyphene, Urine NOT REPORTED NEGATIVE [place], [place] Test Information Assay provides medical screening only. The absence of expected drug(s) and/or metabolite(s) may indicate diluted or adulterated urine, limitations of testing or timing of collection. [place], [place] Comment on above: Testing for legal pu rposes should be confirmed by another method. To request confirmation of test result, please call the lab within 7 days of sample submission. Tricyclic Antidepressants, Urine NOT REPORTED NEGATIVE [facility] [place] [place] Venous Blood Gas, POCon Jorge Test NOT REPORTED [place] aPTT Coag (Bld) [Time] NOT REPORTED [place] FIO2 [place] RE[place] HCO3, Venous 26.8 mmol/L 22 - 29 mmol/L [place] Mode NOT REPORTED [place] Negative Base Excess, Abdifatah NOT REPORTED [place] O2 Device/Flow/% NOT REPORTED [place] Oxygen saturation in Blood 54 % Low 60 - 85 % [place] pCO2, Abdifatah 43.4 [facility] [place], [place] pH, Abdifatah 7.398 [place] pO2, Abdifatah 28.9 Low [place] POC pCO2 Temp NOT REPORTED mm Hg [facility] [place], [place] POC pH Temp NOT REPORTED [facility] [place] POC pO2 Temp NOT REPORTED mm Hg [facility] Positive Base Excess, Abdifatah 2 [place], [place] Sample Site NOT REPORTED [facility] Total CO2, Venous 28 mmol/L 23 - 30 mmol/L [place] Social History Date Type Detail Facility Start: 03-04-2023 History SDOH Housing Homeless Last Year 2 [employer] Work Phone: Start: 07-05-2022 History SDOH Alcohol Comment a beer or 2, 2-3 times a week. [employer] Phone: Start: 06-25-2022 End: 08-03-2022 Exposure to SARS-CoV-2 (event) Not sure [place] Start: 09-01-2021 End: 03-04-2023 Alcohol intake [employer] Phone: Start: 05-22-2021 End: 03-04-2023 History SDOH Financial 5 [employer] Phone: Start: 05-22-2021 End: 03-04-2023 History SDOH Food Worry 1 [employer] Phone: Start: 05-22-2021 Alcohol Comment social [employer] [facility] Work Phone: Start: 12-05-2020 End: 07-05-2022 Tobacco smoking status NHIS Never smoker [place] Start: 12-05-2020 End: 07-05-2022 Tobacco use and exposure Never used [facility] Start: 12-05-2020 End: 03-04-2023 Alcohol intake Current drinker of alcohol (finding) [place] Start: 12-03-2020 Alcohol Comment 1-2 beers every nigh t [place], [place] Start: 1970 Sex Assigned At Not on file [place] Vital Signs Date Time Vital Sign Value Performing Clinician Emilia quintana 07-19-2022 12:01-0400 Body temperature 97 [degF] Nidia Ahammad DO Work Phone: [facility] [employer] 07-19-2022 12:01-0400 Diastolic blood pressure 82 mm[Hg] Nidia Ahammad DO Work Phone: [facility] [employer] 07-19-2022 12:01-0400 Heart rate 68 /min Nidia Ahammad DO Work Phone: [facility] [employer] 07-19-2022 12:01-0400 Respiratory rate 18 /min Nidia Ahammad DO Work Phone: [facility] [employer] 07-19-2022 12:01-0400 SaO2% (BldA) [Mass fraction] 100 % Nidia Ahammad DO Work Phone: [employer] 07-19-2022 12:01-0400 Systolic blood pressure 138 mm[Hg] Nidia Ahammad DO Work Phone: [facility] [employer] 07-19-2022 08:10-0400 Body height 172.7 cm Nidia Ahammad DO Work Phone: [facility] [employer] 07-19-2022 08:10-0400 Body mass index (BMI) [Ratio] 24.33 kg/m2 Nidia Ahammad DO Work Phone: [facility] 07-19-2022 08:10-0400 Body weight 72.58 kg Nidia Archer DO Work Phone: [facility] 07-05-2022 10:57-0400 Body temperature 97.81 [degF] Stvz 2 [facility] [employer] 07-05-2022 10:57-0400 Diastolic blood pressure 82 mm[Hg] Stvz 2 [facility] 07-05-2022 10:57-0400 Heart rate 54 /min Stvz 2 [facility] 07-05-2022 10:57-0400 Respiratory rate 18 /min [facility] [employer] 07-05-2022 10:57-0400 Systolic blood pressure 136 mm[Hg] Stvz 2 [facility] 12-13-2020 16:15-0500 Body Temperature 97.2 [degF] [facility] [place] 12-13-2020 16:15-0500 BP Diastolic 85 mm[Hg] [facility] , [place] 12-13-2020 16:15-0500 BP Systolic 122 mm[Hg] [facility] [place] 12-13-2020 16:15-0500 Pulse (Heart Rate) 60 /min [facility] 12-13-2020 16:15-0500 Respiratory Rate 16 /min [facility] [place] 12-13-2020 13:28-0500 Pulse Oximetry 100 % [facility] [place] 12-09-2020 13:56-0500 Height 175.3 cm [facility] [place] 12-03-2020 19:10-0500 BMI (Body Mass Index) 23.63 kg/m2 [facility], [place] 12-03-2020 19:10-0500 Body weight 72.58 kg [place], [place] Clinical Notes 07-04-2022 to 03-17-2024 Discharge ROLANDO Calles - 07/05/2022 10:30 AM EDTDischarge Instructions Note Date & Type Note Facility 03-17-2024 Note Education Materials Neurology Head Injury, Adult There are many types of head injuries. They can be as minor as a small bump. Some head injuries can be worse. Worse injuries include: ? A strong hit to the head that shakes the brain back and forth, causing damage (concussion). ? A bruise (contusion) of the brain. This means there is bleeding in the brain that can cause swelling. ? A cracked skull (skull fracture). ? Bleeding in the brain that gathers, gets thick (makes a clot), and forms a bump (hematoma). Most problems from a head injury come in the first 24 hours. However, you may still have side effects up to 7?10 days after your injury. It is important to watch your condition for any changes. You may need to be watched in the emergency department or urgent care, or you may need to stay in the hospital. What are the causes? There are many possible causes of a head injury. A serious head injury may be caused by: ? A car accident. ? Bicycle or motorcycle accidents. ? Sports injuries. ? Falls. ? Being hit by an object. What are the signs or symptoms? Symptoms of a head injury include a bruise, bump, or bleeding where the injury happened. Other physical symptoms may include: ? Headache. ? Feeling like you may vomit (nauseous) or vomiting. ? Dizziness. ? Blurred or double vision. ? Being uncomfortable around bright lights or loud noises. ? Shaking movements that you cannot control (seizures). ? Feeling tired. ? Trouble being woken up. ? Fainting or loss of consciousness. Mental or emotional symptoms may include: ? Feeling grumpy or cranky. ? Confusion and memory problems. ? Having trouble paying attention or concentrating. ? Changes in eating or sleeping habits. ? Feeling worried or nervous (anxious). ? Feeling sad (depressed). How is this treated? Treatment for this condition depends on how severe the injury is and the type of injury you have. The main goal is to prevent problems and to allow the brain time to heal. Mild head injury If you have a mild head injury, you may be sent home, and treatment may include: ? Being watched. A responsible adult should stay with you for 24 hours after your injury and check on you often. ? Physical rest. ? Brain rest. ? Pain medicines. Severe head injury If you have a severe head injury, treatment may include: ? Being watched closely. This includes staying in the hospital. ? Medicines to: ? Help with pain. ? Prevent seizures. ? Help with brain swelling. ? Protecting your airway and using a machine that helps you breathe (ventilator). ? Treatments to watch for and manage swelling inside the brain. ? Brain surgery. This may be needed to: ? Remove a collection of blood or blood clots. ? Stop the bleeding. ? Remove a part of the skull. This allows room for the brain to swell. Follow these instructions at home: Activity ? Rest. ? Avoid activities that are hard or tiring. ? Make sure you get enough sleep. ? Let your brain rest. Do this by limiting activities that need a lot of thought or attention, such as: ? Watching TV. ? Playing memory games and puzzles. ? Job-related work or homework. ? Working on the computer, social Vtap, and texting. ? Avoid activities that could cause another head injury until your doctor says it is okay. This includes playing sports. Having another head injury, especially before the first one has healed, can be dangerous. ? Ask your doctor when it is safe for you to go back to your normal activities, such as work or school. Ask your doctor for a [id number] plan for slowly going back to your normal activities. ? Ask your doctor when you can drive, ride a bicycle, or use heavy machinery. Do not do these activities if you are dizzy. Lifestyle ? Do not drink alcohol until your doctor says it is okay. ? Do not use drugs. ? If it is harder than usual to remember things, write them down. ? If you are easily distracted, try to do one thing at a time. ? Talk with family members or close friends when making important decisions. ? Tell your friends, family, a trusted co-worker, and turn down worker about your injury, symptoms, and limits (restrictions). Have them watch for any problems that are new or getting worse. General instructions ? Take rtis-nbl-[id number] and prescription medicines only as told by your doctor. ? Have someone stay with you for 24 hours after your head injury. This person should watch you for any changes in your symptoms and be ready to get help. ? Keep all follow-up visits as told by your doctor. This is important. How is this prevented? ? Work on your balance and strength. This can help you avoid falls. ? Wear a seat belt when you are in a moving vehicle. ? Wear a helmet when you: ? Ride a bicycle. ? Ski. ? Do any other sport or activity that has a risk of injury. ? If you drink alcohol: ? Limit how (more content not included)... [facility] 07-19-2022 Hospital Discharg e instructions Mauricio Rashid RN - 07/19/2022 12:15 PM EDT Images from the original note were not included. Surgery Discharge Instructions Thank you for choosing [facility] and [facility] [place] [facility] for your surgical needs. The following instructions will help to ensure your comfort and that you are well prepared after your surgery. Post-Operative Visit: The office is located at: [facility] [address] [place] [address], [address], [place] [address] Please also call your primary care physician to schedule an appointment for further evaluation and care. Diet: You may resume your regular diet. Be sure to eat a well-balanced diet. Protein promotes wound healing. Pain medication and decreased activity can cause constipation. Drink 8-10 glasses of water a day, eat fresh fruits and vegetables, and add prunes, raisins and bran cereals to your diet if you do become constipated. A stool softener taken 1-2 times a day is helpful. Dulcolax suppositories or Fleets enemas are also available without a prescription. Call our office if the problem continues. Activity and Exercise: No driving until you are seen in the office. Avoid riding in a car for the first two weeks until you come to the office for your scheduled follow-up. Start taking short, frequent walks in the beginning. [place], more frequent walks throughout the day are more beneficial than one long walk each day. You may gradually increase the distance; as tolerated. Your brace will help give support to your muscles while you walk. If your pain increases, you may be walking too much or too far. Try backing off for a day or two and then resume slowly. If physical therapy has been prescribed, you are not to perform range of motion, flexion, extension or lateral bending. No baths, swimming or hot tub until you discuss this with your doctor. Incision Care and Hygiene: Your incision may be may be closed with sutures Steri-strips, lucy, or glue. - The Steri-strips will fall off on their own in 7-10 days - The lucy or sutures should be removed about 2 weeks after surgery. If they are not removed please call the clinic to have them removed. - The glue will dissolve over time No ointments or lotions on the incision It is OK to shower 3-4 days after surgery. Let water run over the incision. Gently pat the incision dry with a clean towel, do not rub. Leave incision site open to air. Pain Management: Do not take NSAID medications (Ibuprofen, Naprosyn, etc.) or Javed-2 inhibitors (Celebrex, etc.) for 2 weeks following surgery. You will be given a prescription for pain medication. Our hope is that you will eventually be weaned off all pain medications. Try not take the pain medicine unless you need to. If you feel that you do not need something that strong, you may use regular or extra-strength Tylenol instead. DO NOT drink alcohol, drive or operate heavy machinery while taking your pain medications. Notify the office if your pain is not controlled or you need a medication refill before your appointment. YOU SHOULD CALL THE OFFICE AT [phone] IF YOU HAVE ANY OF THE FOLLOWING: Increased pain or pain not relieved with current medications If you notice any signs of infection such as bleeding, redness, swelling, tenderness, odor, drainage or opening of the incision. Please check your incisions twice daily. Fevers greater than 101.5 degrees Flu-like symptoms, chills, shakes, chest pain, shortness of breath, nausea, vomiting, diarrhea New or increased pain, numbness or tingling in the legs, as well as new or increased balance or coordination issues. New difficulty with urinating or holding your bladder or your bowels *If you are unable to contact someone at the office and your symptoms persist or increase, call 911 or go to the emergency department. No alcoholic beverages, no driving or operating machinery, no making important decisions for 24 hours. Children should maintain quiet play ( games, movies, books ) for 24 hours. You may have a normal diet but should eat lightly day of surgery. Drink plenty of fluids. Urinate within 8 hours after surgery, if unable to urinate call your doctor documented in this encounter [employer] Phone: 07-05-2022 History of Presen t illness Narrative Anesthesia Focused Assessment Has patient ever tested positive for COVID? No STOP-BANG Sleep Apnea Questionnaire SNORE loudly (heard through closed doors)? No TIRED, fatigued, sleepy during daytime? No OBSERVED stopping breathing during sleep? No High blood PRESSURE being treated? Yes BMI over 35? No AGE over 50? Yes NECK circumference over 16 ? No GENDER (male)? Yes Total 3 High risk 5-8 Intermediate risk 3-4 Low risk 0-2 Obstructive Sleep Apnea: denies If YES, machine used: no Type 1 DM: no T2DM: no Coronary Artery Disease: no Hypertension: yes Active smoker: no Drinks Alcohol: socially Dentition: benign Defib / AICD / Pacemaker: no Renal Failure/dialysis: no Patient was evaluated in PAT & anesthesia guidelines were applied. NPO guidelines, medication instructions and scheduled arrival time were reviewed with patient. I advised patient to please contact the surgeon's office, ahead of time if possible, if any new signs or symptoms of illness, infection, rash, etc Hx of anesthesia complications: no Family hx of anesthesia complications: dad-difficult to intubate. Anesthesia contacted: yes, Dr. Saleh. Medical or cardiac clearance ordered: Neuro notes available in paper chart and Dr. Opal Moss. CT 02/2022 no acute abnormality. CTA 11/2020 in [facility] unremarkable CTA. Most recent office note with Dr. Joseph in chart 07/02/22. No further clearance requested by Dr. Saleh, notes are all available in [facility] and paper chart. EKG also reviewed, patient is without cardiac or pulmonary complaints, is a runner, active. No further request. MAURICIO MURPHY PA-C 07/05/22 11:07 AM documented in this encounter [employer] Phone: 07-04-2022 Hospital Discharg e ROLANDO Small - 07/04/2022 8:31 AM EDT Images from the original note were not included. Preoperative Instructions: Stop eating solid foods at midnight the night prior to surgery. Stop drinking clear liquids at midnight the night prior to surgery. Arrive at the surgery center (Entrance B) by 7:40 on 07/19/2022 (or as directed by your surgeon's office). If you have been given a blood band, you must bring it with you the day of surgery. Please stop any blood thinning medications as directed by your surgeon or prescribing physician. Failure to stop certain medications may interfere with your scheduled surgery. These may include: Aspirin, Warfarin (Coumadin), Clopidogrel (Plavix), Ibuprofen (Motrin, Advil), Naproxen (Aleve), Meloxicam (Mobic), Celecoxib (Celebrex), Eliquis, Pradaxa, Xarelto, Effient, Fish Oil, Herbal supplements. You may continue the rest of your medications through the night before surgery unless instructed otherwise. Please take only the following medication(s) the day of surgery with a small sip of water: lisinopril Please use and bring inhalers the day of surgery. Please bring CPAP the day of surgery. Signature (Patient) Signature/date(Provider) REMINDERS: If you are going home the day of your procedure, you will need a friend or family member to drive you home after your procedure. Your team driver must be 18 years of age or older and able to sign off on your discharge instructions. Taxi cabs or any form of public transportation is not acceptable. It is preferable that the friend or family member stay at the hospital throughout your procedure. If you are going home the same day as your procedure, someone must remain with you for the first 24 hours after your surgery if you receive anesthesia or sedation. If you do not have someone to stay with you, your procedure may be cancelled. Please do not wear any jewelry or body piercings the day of surgery. PREPARING FOR YOUR SURGERY: Before surgery, you can play an important role in your own health. Because skin is not sterile, we need to be sure that your skin is as free of germs as possible before surgery by carefully washing before surgery. Preparing or prepping skin before surgery can reduce the risk of a surgical site infection. Do not shave the area of your body where your surgery will be performed unless you received specific permission from your physician. You will need to shower at home the night before surgery and the morning of surgery with a special soap called chlorhexidine gluconate (CHG*). *Not to be used by people allergic to Chlorhexidine Gluconate (CHG). Following these instructions will help you be sure that your skin is clean before surgery. Instructions on cleaning your skin before surgery: The night before your surgery: You will need to shower with warm water (not hot) and the CHG soap. Use a clean wash cloth and a clean towel. Have clean clothes available to put on after the shower. First wash your hair with regular shampoo. Rinse your hair and body thoroughly to remove the shampoo. Wash your face with your regular soap or water only. Thoroughly rinse your body with warm water from the neck down. Turn water off to prevent rinsing the soap off too soon. With a clean wet washcloth and half of the CHG soap in the bottle, lather your entire body from the neck down. Do not use CHG soap near your eyes or ears to avoid injury to those areas. Wash thoroughly, paying special attention to the area where your surgery will be performed. Wash your body gently for five (5) minutes. Avoid scrubbing your skin too hard. Turn the water back on and rinse your body thoroughly. Pat yourself dry with a clean, soft towel. Do not apply lotion, cream or powder. Dress with clean freshly washed clothes. The morning of surgery: Repeat shower following steps above - using remaining half of CHG soap in bottle. If you have any questions, call the Pre-Admission Testing Unit at [phone]. Day of Surgery/Procedure As a patient at [facility] you can expect quality medical and nursing care that is centered on your individual needs. Our goal is to make your surgical experience as comfortable as possible . Directions to the Surgery Center [facility] is located at [address] [place] [address]. Please pull into the Emergency Room & Surgery Center parking lot (Entrance B) and park in that lot. We also have additional parking across the street. You will enter the facility following the [facility] sign. Please stop at the outpatient receptionist desk where you will be checked in by the staff. If you have any questions please call [phone]. Transportation after your procedure. You will need a friend or family member to drive you home after your procedure. Your team driver must be 18 years of age or older and able to sign off on your discharge instructions. Taxi cabs or any form of public transportation is not acceptable. It is preferable that the friend or family member stay at the hospital throughout your procedure. Someone must remain at home with you for the first 24 hours after your surgery if you receive anesthesia or sedation. If you do not have someone to stay with you, your procedure may be cancelled. Patient Instructions If you are having any type of anesthesia you are to have nothing to eat or drink after midnight the night before your surgery. This includes gum, mints, water or smoking or chewing tobacco. The only exception to this is a small sip of water to take with any morning dose of heart, blood pressure, or seizure medications. Bring a list of all medications you take, along with the dose of the medications and how often you take it. If more convenient bring the pharmacy bottles in a zip lock bag. Please shower the night before and the morning of surgery with an antibacterial soap. Please use the wipes given to you the night before your surgery after your shower. Unless otherwise told by your physician, please do not shave legs or any part of your body below your neck the night before or day of your surgery. You may shave your face or neck. [place] your teeth but do not swallow water. Bring your inhaler if you are currently using one. Bring your eyeglasses and case with you. No contacts are to be worn the day of surgery. You also may bring your hearing aids. Bring your blood band if one has been given to you. Please do not close the clasp. If you are on C-PAP or Bi-PAP at home and plan on staying in the hospital overnight for your surgery please bring the machine with you. Do not wear any jewelry or body piercings day of surgery. Also, NO lotion, perfume or deodorant to be used the day of surgery. Do not bring any valuables, such as jewelry, [place] or credit cards. If you are staying overnight with us, please bring a SMALL bag of personal items. We cannot accommodate large items, like suitcases. Please wear loose, comfortable clothing. If you are potentially going to have a cast or brace bring clothing that will fit over them. In case of illness - If you have cold or flu like symptoms (high fever, runny nose, sore throat, cough, etc.) rash, nausea, vomiting, loose stools, and/or recent contact with someone who has a contagious disease (chicken pox, measles, etc.) Please call your doctor before coming to the hospital. If your child is having surgery please make arrangements for any other children to be cared for at home on the day of surgery. Other children are not permitted in recovery room and we want you to be able to spend time with the patient. If other arrangements are not available then we suggest that you have a second adult to stay in the waiting room. If you have any other questions regarding your procedure or the day of surgery, please call [phone], or [phone] documented in this encounter [employer] Phone: Evaluation note Diagnosis SAH (subarachnoid hemorrhage) (HCC) Subarachnoid hemorrhage documented in this encounter [employer] Phone: evaluation note* Diagnosis SAH (subarachnoid hemorrhage) (HCC) Subarachnoid hemorrhage documented in this encounter [employer] Phone: evaluation note* Diagnosis Acute post-operative pain- Primary Complex regional pain syndrome type 1 of left upper extremity Essential (primary) hypertension Unspecified essential hypertension Hyperlipidemia, unspecified hyperlipidemia type documented in this encounter [employer] Phone: evaluation note* Diagnosis SAH (subarachnoid hemorrhage) (HCC) Subarachnoid hemorrhage documented in this encounter [employer] Phone: [email or web address] note* Diagnosis Complex regional pain syndrome type 1 of left upper extremity Failure of spinal cord stimulator, subsequent encounter documented in this encounter [employer] Phone: [email or web address] note* Diagnosis Essential (primary) hypertension Unspecified essential hypertension Hyperlipidemia, unspecified hyperlipidemia type documented in this encounter [employer] Phone: [email or web address] note* Diagnosis Serum potassium elevated Hyperpotassemia documented in this encounter [employer] Phone: Reason for Referral Status Reason Specialty Diagnoses / Procedures Referre d By Contact Referred To Contact [facility] Diagnoses SAH (subarachnoid hemorrhage) (HCC) Procedures CTA HEAD W CONTRAST Samantha Husain MD [address] [place] [address] Status Reason Specialty Diagnoses / Procedures Referre d By Contact Referred To Contact Closed Radiology Diagnoses Sciatica of left side Procedures CT LUMBAR SPINE WO CONTRAST Geoff Dodson MD [facility], [address] [place] [address] 2, [address] [place] [id number] Status Reason Specialty Diagnoses / Procedures Referre d By Contact Referred To Contact Closed Radiology Diagnoses SAH (subarachnoid hemorrhage) (HCC) Procedures CTA HEAD W CONTRAST [id number] Samantha Husain MD [address] [place] [address] Status Reason Specialty Diagnoses / Procedures Referre d By Contact Referred To Contact Closed Radiology Diagnoses SAH (subarachnoid hemorrhage) (HCC) Procedures CTA HEAD W CONTRAST [id number] case # [id number] Carolyn Joseph MD [address] [facility] [address] [place] [address] Specialty Diagnoses / Procedures Referred By Contac t Referred To Contact Radiology Diagnoses SAH (subarachnoid hemorrhage) (HCC) I60.9 (ICD-10-CM) - SAH (subarachnoid hemorrhage) (HCC) Procedures MRI BRAIN W WO CONTRAST GA MRI BRAIN COMBO [id number] - GA MRI BRAIN COMBO Carolyn Joseph MD [address] [facility] [address] [place] [id number] Referral ID Status Reason Start Date Expiration Date Visits Re quested Visits Authorized [id number] Closed 08/30/2022 07/02/2023 1 1 Specialty Diagnoses / Procedures Referred By Edis lai Referred To Contact Radiology Diagnoses Complex regional pain syndrome type 1 of left upper extremity Failure of spinal cord stimulator, subsequent encounter G90.512 (ICD-10-CM) - Complex regional pain syndrome type 1 of left upper extremity Procedures MRI CERVICAL SPINE WO CONTRAST GA MRI, CERV SPINE [id number] - GA MRI, CERV SPINE Sukhjinder Musa W, [employer]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 [address] [facility] [address] [address] Referral ID Status Reason Start Date Expiration Date Visits Re quested Visits Authorized [id number] Closed 08/30/2022 08/24/2023 1 1 History of Present Illness * Samantha Husain MD - 12/13/2020 8:00 AM EST Daily Progress Note Neuro Critical Care Patient Name: Anibal Damon Patient : 1970 Room/Bed: [facility]0540-01 Code Status: Full Code Allergies: No Known Allergies CHIEF COMPLAINT: Headache INTERVAL HISTORY Initial Presentation (Admitted 12/03/2020): The patient is a 50-year-old male with a history of complex regional pain syndrome s/p nerve stimulator who was transferred from [facility] for SAH. Pt notes that he went on a run at approximately 0900, and developed sudden onset worst headache at 0930. Pt went home and took some ibuprofen and took a nap. Pt woke up and his headache was still present, which lead him to taking half a pill on an unknown pain medication. After that did not resolve his pain, he went to [facility] ED for evaluation. CT Head w/o contrast and CTA Neck and Head revealed SAH with no aneurysm. Pt was transferred to [facility] for neuro-endovascular and neuro-critical care evaluation. Pt arrived to [facility], where the CTH and CTA re-demonstrated the SAH with no obvious aneurysm. Pt still notes having his severe non-radiating headache with associated photophobia. Pt denies anyuse of AC/AP. Pt denies any fevers, chills, change in vision, chest pain, shortness of breath, abdominal pain, nausea/vomiting, numbness/tingling or weakness. Admitted to the Neuro ICU for close monitoring. For SAH Dunn&Villarreal: 2, Modified Oliveros: 3 Hospital Course: 12/04/2020: Patient complained of headache overnight, improved with PRN Fentanyl. This morning, patient continues to have a headache but reports improvement and states it is tolerable. Started on Decadron 4mg Q8h IV x2 days and Neurontin 200mg QHS for symptom management. Clinical exam remains stable. Patient is AOx3 without acute focal deficits. Reports baseline right eyelid drooping. Also has chronic numbness in his left upper extremity due to a previous shoulder injury. Underwent diagnostic cerebral angiogram which did not reveal any cerebral aneurysm. Endovascular recommending MRI cervical spine. 12/05/2020: Patient stated his headache was much improved. Patient cannot undergo MRI due to metallic splitter leads for his neurostimulator. Repeat diagnostic angiogram in a week, will continue Keppra till then. Patient transferred to stepdown unit, will remain under neuro ICU care. Patient on general diet and has been able to get out of bed and move around. PT OT consulted and recommend no therapy. 12/06/2020: Patient states his headache is much better. Patient's SBP goals are being met, will continue to monitor. Patient is off Cleviprex infusion and has not required labetalol for blood pressuremanagement. Patient has been tolerating oral diet well, worked with PT/OT, denies any nausea, vomiting. 12/07/2020: Patient had a headache overnight which resolved with Tylenol and magnesium. Patient states he currently has a mild headache but much better than before. Headache overnight was the worst since he has been on the floor but much better than the headache at presentation. Patient denies any new complaints, counseled regarding treatment plan. Patient expresses agreement and understanding. Patient will undergo TCD's today. 12/08/2020: Patient stated he had a headache overnight, different from before, relieved with Tylenol. TCD's yesterday showed no increased mean velocities or vasospasm. 12/09/2020 12/11/2020: Patient remained stable and continued to intermittently experience a headache which was relieved with Tylenol. Patient required Roxicodone for headache relief at times. Expressedsome photosensitivity, worsening of headache and lights were on. Patient also explained some back pain radiating to his left lower leg, relieved with muscle relaxant, Flexeril. Patient's magnesium continued to be low, IV magnesium daily ordered. Repeat TCD performed, normal mean velocities and no evidence of vasospasm. 12/12/2020: Patient denied any new complaints, had a headache overnight which was relieved with Tylenol and oxycodone. Patient remained stable otherwise, plan for diagnostic angiogram tomorrow morning. Physical exam was nonfocal and stable. Last 24h: No acute events overnight. Patient denies any new complaints, mild headache overnight but much better than before. Patient has been on IV normal saline at 125 mL/h in preparation for diagnostic angiogram today. CURRENT MEDICATIONS: SCHEDULED MEDICATIONS: gabapentin 300 mg Oral Nightly magnesium sulfate 4 g Intravenous Daily methocarbamol 750 mg Oral TID atorvastatin 40 mg Oral Nightly lisinopril 10 mg Oral Daily sennosides-docusate sodium 2 tablet Oral Daily ondansetron 4 mg Intravenous Once citalopram 10 mg Oral Daily sodium chloride flush 10 mL Intravenous 2 times per day niMODipine 60 mg Oral 6 times per day CONTINUOUS INFUSIONS: sodium chloride 125 mL/hr at 12/13/20 0210 PRN MEDICATIONS: oxyCODONE, acetaminophen, magnesium hydroxide, sodium chloride flush, promethazine OR ondansetron, labetalol VITALS: Temperature Range: Temp: 97.6 F (36.4 C) Temp Av.9 F (36.6 C) Min: 97.2 F (36.2 C) Max: 98.7 F(37.1 C) BP Range: Systolic (24hrs), Av , Min:119 , Max:131 Diastolic (24hrs), Av, Min:75, Max:83 Pulse Range: Pulse Av.8 Min: 52 Max: 60 Respiration Range: Resp Av Min: 12 Max: 17 Current Pulse Ox: SpO2: 100 % 24HR Pulse Ox Range: SpO2 Av.4 % Min: 96 % Max: 100 % Patient Vitals for the past 12 hrs: BP Temp Temp src Pulse Resp SpO2 12/13/20 0754 119/76 97.6 F (36.4 C) Oral 59 14 100 % 12/13/20 0400 131/75 97.5 F (36.4 C) Oral 52 15 12/12/20 2349 123/77 98.7 F (37.1 C) Oral 55 12 96 % Estimated body mass index is 23.63 kg/m as calculated from the following: Height as of this encounter: 5' 9 (1.753 m). Weight as of this encounter: 160 lb (72.6 kg). []<16 Severe malnutrition []16 16.99 Moderate malnutrition []17 18.49 Mild malnutrition [x]18.5 24.9 Normal []25 29.9 Overweight (not obese) []30 34.9 Obese class 1 (Low Risk) []35 39.9 Obese class 2 (Moderate Risk) []?40 Obese class 3 (High Risk) RECENT LABS: Lab Results Component Value Date WBC 6.0 12/13/2020 HGB 14.2 12/13/2020 HCT 42.6 12/13/2020 PLT 358 12/13/2020 CHOL 182 12/04/2020 TRIG 34 12/04/2020 HDL 68 12/04/2020 NA 136 12/13/2020 K 4.2 12/13/2020 CL 104 12/13/2020 CREATININE 0.83 12/13/2020 BUN 11 12/13/2020 CO2 23 12/13/2020 INR 1.0 12/03/2020 LABA1C 5.3 12/04/2020 24 HOUR INTAKE/OUTPUT: No intake or output data in the 24 hours ending 12/13/20 0800 IMAGING: Diagnostic angiogram: No evidence of clear aneurysm, AVM, arterial dissection, stenosis or venoocclusive disease. Labs and Images reviewed with: [] Dr. Samy Groves [x] Dr. Conor Raya [] Dr. Levy Jackman [] There are no new interval images to review. PHYSICAL EXAM CONSTITUTIONAL: Well developed, well nourished, alert and oriented x 3, in no acute distress. GCS 15. Nontoxic. No dysarthria. No aphasia. HEAD: normocephalic, atraumatic EYES: PERRLA, EOMI. ENT: moist mucous membranes NECK: supple, symmetric LUNGS: Equal air entry bilaterally CARDIOVASCULAR: normal s1 / s2, RRR, distal pulses intact ABDOMEN: Soft, no rigidity NEUROLOGIC: Mental Status: A & O x3,awake Cranial Nerves: cranial nerves II-XII are grossly intact Motor Exam: Drift: absent Tone: normal Motor exam is symmetrical 5 out of 5 all extremities bilaterally Sensory: Touch: Right Upper Extremity: normal Left Upper Extremity: normal Right Lower Extremity: normal Left Lower Extremity: normal Deep Tendon Reflexes: Right Bicep: 2+ Left Bicep: 2+ Right Knee: 2+ Left Knee: 2+ Plantar Response: Right: downgoing Left: downgoing Clonus: absent Benjamin's: absent Coordination/Dysmetria: Heel to Alston: Right: normal Left: normal Finger to Nose: Right: normal Left: normal Dysdiadochokinesia: absent Gait: normal DRAINS: [x] There are no drains for Neuro Critical Care to monitor at this time. ASSESSMENT AND PLAN: NEUROLOGIC: - Diffuse, high grade SAH, unclear etiology - POD #9 s/p diagnostic cerebral angiogram which was negative for aneurysm or vascular malformation - Neuro Endovascular following; repeat DSA on 12/13/2020. - TCD 12/09/2020: No evidence of vasospasm. - Continue Nimodipine 60mg Q4h - Goal Magnesium 3-4. Last mag 1.9. Magnesium solution IV 4 g daily. - Lipitor 40 mg nightly - Medrol dose pack course for headaches completed. - Symptom/pain management; Neurontin 300mg QHS, Decadron 2-day course completed. - Goal SBP 90-140 - Neuro checks per protocol CARDIOVASCULAR: - Goal SBP 90-140 - PRN Labetalol - History of borderline hypertension, not on any meds outpatient - Start Lisinopril 10mg QD - Lipitor 40 mg nightly - Troponin 6, EKG unremarkable. - Echocardiogram pending: EF 55%, grade 1 LVDD, LA and RA mildly dilated, mild MR. - Continue telemetry PULMONARY: - Maintaining O2 sats on room air - Incentive spirometry RENAL/FLUID/ELECTROLYTE: - Normal renal function - BUN 11, creatinine 0.83 - Monitor I&O - Goal Magnesium 3-4. Last mag 1.9. Magnesium solution IV 4 g daily. - Replace electrolytes PRN - Daily BMP GI/NUTRITION: NUTRITION: Diet NPO, After Midnight Exceptions are: Sips with Meds - Bowel regimen: Senokot-S daily - GI prophylaxis: Not indicated ID: - Afebrile, Tmax 98.8 - No leukocytosis, WBC 6.0 - 12/03 COVID-19 negative - Continue to monitor for fevers - Daily CBC HEME: - H&H 14.2/42.6, stable - Platelets 358 - Daily CBC ENDOCRINE: - Continue to monitor blood glucose, goal <180 - Glucose well controlled OTHER: - UDS +Opiates, received in ED - PT/OT/ST - Code Status: FULL PROPHYLAXIS: Stress ulcer: Not indicated DVT PROPHYLAXIS: - SCD sleeves - Thigh High - No chemoprophylaxis anticoagulation at this time due to SAH, unclear etiology. DISPOSITION: [] To remain ICU, stepdown status. [x] OK for out of ICU from Neuro Critical Care standpoint, stepdown status, to remain under neuro critical care team. We will continue to follow along. For any changes in exam or patient status please contact Neuro Critical Care. Samantha Husain MD Neuro Critical Care Pager [phone] 12/13/2020 8:00 AM Associated attestation - Samy Groves MD - 12/13/2020 1:22 PM EST Neuro critical care Patient seen and staffed today and discussed with NCC team. Resident physician supervised and agreeto note, assessment plan. N.p.o. for repeat cerebral angiogram today Gabapentin increased to 300 mg at bedtime Nonfocal neurological exam Discharge planning post cerebral angiogram Nonfocal neurological exam Continue nimodipine therapy Spoke to patient and his at bedside and all questions answered Total care time spent was 34 minutes excluding procedural time Bacilio Groves MD * Hermes Box MD - 12/12/2020 3:26 PM EST ENDOVASCULAR NEUROSURGERY PROGRESS NOTE 12/12/2020 3:26 PM Subjective: Admit Date: 12/03/2020 PCP: No primary care provider on file. No new acute events. Objective: Vitals: BP 123/81 Pulse 60 Temp 97.2 F (36.2 C) (Oral) Resp 17 Ht 5' 9 (1.753 m) Wt 160 lb (72.6 kg) SpO2 96% BMI 23.63 kg/m Medications and labs: Scheduled Meds: magnesium sulfate 4 g Intravenous Daily methocarbamol 750 mg Oral TID atorvastatin 40 mg Oral Nightly gabapentin 200 mg Oral Nightly lisinopril 10 mg Oral Daily famotidine 20 mg Oral BID sennosides-docusate sodium 2 tablet Oral Daily ondansetron 4 mg Intravenous Once citalopram 10 mg Oral Daily sodium chloride flush 10 mL Intravenous 2 times per day niMODipine 60 mg Oral 6 times per day Continuous Infusions: CBC: Recent Labs 12/10/20 0515 12/11/20 0530 12/12/20 0452 WBC 6.5 6.3 7.4 HGB 14.6 15.4 14.5 PLT 350 343 359 BMP: Recent Labs 12/10/20 0515 12/11/20 0530 12/12/20 0452 NA 134* 137 135 K 4.4 4.2 4.3 CL 101 104 102 CO2 22 22 21 BUN 13 12 12 CREATININE 0.82 0.82 0.83 GLUCOSE 91 87 91 Hepatic: No results for input(s): AST, ALT, ALB, BILITOT, ALKPHOS in the last 72 hours. Troponin: No results for input(s): TROPONINI in the last 72 hours. BNP: No results for input(s): BNP in the last 72 hours. Lipids: No results for input(s): CHOL, HDL in the last 72 hours. Invalid input(s): LDLCALCU INR: No results for input(s): INR in the last 72 hours. Images were personally reviewed including: TCD 12/09/2020 wnl TCD 12/07/2020 wnl DSA 12/04/2020 --No evidence of clear aneurysm, arteriovenous malformation, arterial dissection, stenosis, or veno-occlusive disease. --Normal variants include bilateral P-comm's, right P-comm infundibulum, anterior communicating artery fenestration. Assessment and Recommendations: 50-year-old male with no past medical history. Admitted 12/03/2020 with perimesencephalic SAH, DSA neg for lesions. H and H 2, mF 3. Ruptured aneurysm cannot be ruled out. Post bleed day 9 TCD 12/07/2020 wnl. Pt is well today. Risk and benefit of repeat dx dsa discussed, pt consented to the procedure. --management per neuro (nimotop, TCDs) last tcd 12/09/2020 --mg goal 3-4, last 2.1 --continue Lipitor 40 --Recommend MRI c spine w and wo con (r/o spinal AVM/F) --SBP goal 90-130 --plan for repeat DSA tomorrow (12/13/2020). Npo 12/13/2020 midnight --Upon discharge follow up with Dr. Box in [address] Joseph in 3 months with CTA head with contrast. Hermes Box MD Stroke, Neurocritical Care & Neurointervention [facility] Electronically signed 12/12/2020 at 3:26 PM Associated attestation - Carolyn Joseph MD - 12/12/2020 4:19 PM EST Stroke and Neurointerventional Attending: Service date 12.12.2020 I obtained brief history, examined the patient,reviewed the fellow's/Mid level provider/and resident s note and agree with the documented findings and plan of care. Any areas of disagreement are noted on the chart. I agree with the chief complaint, past medical history, past surgical history, allergies, medications, social and family history as documented unless otherwise noted above. Total time for evaluation including obtaining history, chart review, physical examination, 35 minutes Carolyn Joseph MD, [place] Office [phone]. Cell [phone] Stroke, Neurocritical Care & Neurointervention [facility] * Samantha Husain MD - 12/12/2020 8:19 AM EST Daily Progress Note Neuro Critical Care Patient Name: Anibal Damon Patient : 1970 Room/Bed: 0540/0540-01 Code Status: Full Code Allergies: No Known Allergies CHIEF COMPLAINT: Headache INTERVAL HISTORY Initial Presentation (Admitted 12/03/2020): The patient is a 50-year-old male with a history of complex regional pain syndrome s/p nerve stimulator who was transferred from [facility] for SAH. Pt notes that he went on a run at approximately 0900, and developed sudden onset worst headache at 0930. Pt went home and took some ibuprofen and took a nap. Pt woke up and his headache was still present, which lead him to taking half a pill on an unknown pain medication. After that did not resolve his pain, he went to [facility] ED for evaluation. CT Head w/o contrast and CTA Neck and Head revealed SAH with no aneurysm. Pt was transferred to [facility] for neuro-endovascular and neuro-critical care evaluation. Pt arrived to [facility], where the CTH and CTA re-demonstrated the SAH with no obvious aneurysm. Pt still notes having his severe non-radiating headache with associated photophobia. Pt denies any use of AC/AP. Pt denies any fevers, chills, change in vision, chest pain, shortness of breath, abdominal pain, nausea/vomiting, numbness/tingling or weakness. Admitted to the Neuro ICU for close monitoring. For SAH Dunn&Villarreal: 2, Modified Oliveros: 3 Hospital Course: 12/04/2020: Patient complained of headache overnight, improved with PRN Fentanyl. This morning, patient continues to have a headache but reports improvement and states it is tolerable. Started on Decadron 4mg Q8h IV x2 days and Neurontin 200mg QHS for symptom management. Clinical exam remains stable. Patient is AOx3 without acute focal deficits. Reports baseline right eyelid drooping. Also has chronic numbness in his left upper extremity due to a previous shoulder injury. Underwent diagnostic cerebral angiogram which did not reveal any cerebral aneurysm. Endovascular recommending MRI cervical spine. 12/05/2020: Patient stated his headache was much improved. Patient cannot undergo MRI due to metallic splitter leads for his neurostimulator. Repeat diagnostic angiogram in a week, will continue Keppra till then. Patient transferred to stepdown unit, will remain under neuro ICU care. Patient on general diet and has been able to get out of bed and move around. PT OT consulted and recommend no therapy. 12/06/2020: Patient states his headache is much better. Patient's SBP goals are being met, will continue to monitor. Patient is off Cleviprex infusion and has not required labetalol for blood pressuremanagement. Patient has been tolerating oral diet well, worked with PT/OT, denies any nausea, vomiting. 12/07/2020: Patient had a headache overnight which resolved with Tylenol and magnesium. Patient states he currently has a mild headache but much better than before. Headache overnight was the worst since he has been on the floor but much better than the headache at presentation. Patient denies any new complaints, counseled regarding treatment plan. Patient expresses agreement and understanding. Patient will undergo TCD's today. 12/08/2020: Patient stated he had a headache overnight, different from before, relieved with Tylenol. TCD's yesterday showed no increased mean velocities or vasospasm. 12/09/2020 12/11/2020: Patient remained stable and continued to intermittently experience a headache which was relieved with Tylenol. Patient required Roxicodone for headache relief at times. Expressedsome photosensitivity, worsening of headache and lights were on. Patient also explained some back pain radiating to his left lower leg, relieved with muscle relaxant, Flexeril. Patient's magnesium continued to be low, IV magnesium daily ordered. Repeat TCD performed, normal mean velocities and no evidence of vasospasm. Last 24h: No acute events overnight. Patient denies any new complaints, states he had a headache overnight which was relieved with Tylenol and oxycodone. Otherwise clinically stable, DSA planned for tomorrow 12/13/2020. CURRENT MEDICATIONS: SCHEDULED MEDICATIONS: magnesium sulfate 4 g Intravenous Daily methocarbamol 750 mg Oral TID atorvastatin 40 mg Oral Nightly gabapentin 200 mg Oral Nightly lisinopril 10 mg Oral Daily famotidine 20 mg Oral BID sennosides-docusate sodium 2 tablet Oral Daily ondansetron 4 mg Intravenous Once citalopram 10 mg Oral Daily sodium chloride flush 10 mL Intravenous 2 times per day niMODipine 60 mg Oral 6 times per day CONTINUOUS INFUSIONS: PRN MEDICATIONS: oxyCODONE, acetaminophen, magnesium hydroxide, sodium chloride flush, promethazine OR ondansetron, labetalol VITALS: Temperature Range: Temp: 97.2 F (36.2 C) Temp Av.9 F (36.6 C) Min: 97.2 F (36.2 C) Max: 98.8 F(37.1 C) BP Range: Systolic (24hrs), Av , Min:121 , Max:154 Diastolic (24hrs), Av, Min:79, Max:93 Pulse Range: Pulse Av.3 Min: 53 Max: 60 Respiration Range: Resp Av.8 Min: 12 Max: 17 Current Pulse Ox: SpO2: 96 % 24HR Pulse Ox Range: SpO2 Av % Min: 96 % Max: 100 % Patient Vitals for the past 12 hrs: BP Temp Temp src Pulse Resp SpO2 12/12/20 1200 123/81 97.2 F (36.2 C) Oral 60 17 96 % 12/12/20 0810 129/82 97.9 F (36.6 C) Oral 60 17 100 % 12/12/20 0328 121/81 98.6 F (37 C) Oral 54 13 100 % Estimated body mass index is 23.63 kg/m as calculated from the following: Height as of this encounter: 5' 9 (1.753 m). Weight as of this encounter: 160 lb (72.6 kg). []<16 Severe malnutrition []16 16.99 Moderate malnutrition []17 18.49 Mild malnutrition [x]18.5 24.9 Normal []25 29.9 Overweight (not obese) []30 34.9 Obese class 1 (Low Risk) []35 39.9 Obese class 2 (Moderate Risk) []?40 Obese class 3 (High Risk) RECENT LABS: Lab Results Component Value Date WBC 7.4 12/12/2020 HGB 14.5 12/12/2020 HCT 44.5 12/12/2020 PLT 359 12/12/2020 CHOL 182 12/04/2020 TRIG 34 12/04/2020 HDL 68 12/04/2020 NA 135 12/12/2020 K 4.3 12/12/2020 CL 102 12/12/2020 CREATININE 0.83 12/12/2020 BUN 12 12/12/2020 CO2 21 12/12/2020 INR 1.0 12/03/2020 LABA1C 5.3 12/04/2020 24 HOUR INTAKE/OUTPUT: Intake/Output Summary (Last 24 hours) at 12/12/2020 1219 Last data filed at 12/11/2020 1604 Gross per 24 hour Intake 1000 ml Output Net 1000 ml IMAGING: Diagnostic angiogram: No evidence of clear aneurysm, AVM, arterial dissection, stenosis or venoocclusive disease. Labs and Images reviewed with: [] Dr. Samy Groves [x] Dr. Conor Raya [] Dr. Levy Jackman [] There are no new interval images to review. PHYSICAL EXAM CONSTITUTIONAL: Well developed, well nourished, alert and oriented x 3, in no acute distress. GCS 15. Nontoxic. No dysarthria. No aphasia. HEAD: normocephalic, atraumatic EYES: PERRLA, EOMI. ENT: moist mucous membranes NECK: supple, symmetric LUNGS: Equal air entry bilaterally CARDIOVASCULAR: normal s1 / s2, RRR, distal pulses intact ABDOMEN: Soft, no rigidity NEUROLOGIC: Mental Status: A & O x3,awake Cranial Nerves: cranial nerves II-XII are grossly intact Motor Exam: Drift: absent Tone: normal Motor exam is symmetrical 5 out of 5 all extremities bilaterally Sensory: Touch: Right Upper Extremity: normal Left Upper Extremity: normal Right Lower Extremity: normal Left Lower Extremity: normal Deep Tendon Reflexes: Right Bicep: 2+ Left Bicep: 2+ Right Knee: 2+ Left Knee: 2+ Plantar Response: Right: downgoing Left: downgoing Clonus: absent Benjamin's: absent Coordination/Dysmetria: Heel to [place]: Right: normal Left: normal Finger to Nose: Right: normal Left: normal Dysdiadochokinesia: absent Gait: normal DRAINS: [x] There are no drains for Neuro Critical Care to monitor at this time. ASSESSMENT AND PLAN: NEUROLOGIC: - Diffuse, high grade SAH, unclear etiology - POD #8 s/p diagnostic cerebral angiogram which was negative for aneurysm or vascular malformation - Neuro Endovascular following; repeat DSA on 12/13/2020. - TCD 12/09/2020: No evidence of vasospasm. - Continue Nimodipine 60mg Q4h - Magnesium goal 3 4. - Lipitor 40 mg nightly - Medrol dose pack course for headaches completed. - Symptom/pain management; Neurontin 200mg QHS, Decadron 2-day course completed. - Goal SBP 90-140 - Neuro checks per protocol CARDIOVASCULAR: - Goal SBP 90-140 - PRN Labetalol - History of borderline hypertension, not on any meds outpatient - Start Lisinopril 10mg QD - Lipitor 40 mg nightly - Troponin 6, EKG unremarkable. - Echocardiogram pending: EF 55%, grade 1 LVDD, LA and RA mildly dilated, mild MR. - Continue telemetry PULMONARY: - Maintaining O2 sats on room air - Incentive spirometry RENAL/FLUID/ELECTROLYTE: - Normal renal function - BUN 12, creatinine 0.83 - Monitor I&O - Goal Magnesium 3-4. Last mag 2.1. Magnesium solution 4 g daily. - Replace electrolytes PRN - Daily BMP GI/NUTRITION: NUTRITION: DIET GENERAL; Diet NPO, After Midnight Exceptions are: Sips with Meds - Bowel regimen: Senokot-S daily - GI prophylaxis: Pepcid 20 mg twice daily ID: - Afebrile, Tmax 37.1 - No leukocytosis, WBC 7.4 - 12/03 COVID-19 negative - Continue to monitor for fevers - Daily CBC HEME: - H&H 14.5/44.5, stable - Platelets 359 - Daily CBC ENDOCRINE: - Continue to monitor blood glucose, goal <180 - Glucose well controlled OTHER: - UDS +Opiates, received in ED - PT/OT/ST - Code Status: FULL PROPHYLAXIS: Stress ulcer: H2 oneida DVT PROPHYLAXIS: - SCD sleeves - Thigh High - No chemoprophylaxis anticoagulation at this time due to SAH, unclear etiology. DISPOSITION: [] To remain ICU, stepdown status. [x] OK for out of ICU from Neuro Critical Care standpoint, stepdown status, to remain under neuro critical care team. We will continue to follow along. For any changes in exam or patient status please contact Neuro Critical Care. Samantha Husain MD Neuro Critical Care Pager [phone] 12/12/2020 12:19 PM Associated attestation - Samy Groves MD - 12/12/2020 4:04 PM EST Neuro critical care Patient seen and staffed today and discussed with NCC team. Resident physician supervised and agreeto note, assessment plan. Continue monitoring and management for non aneurysmal subarachnoid hemorrhage. Repeat cerebral angiogram planned for tomorrow on 12/13/2020 Increase gabapentin dose to 300 mg at bedtime Nonfocal neurological exam Continue nimodipine therapy Total care time spent was 40 minutes excluding procedural M Hugo Groves MD * Geoff Dodson MD - 12/11/2020 10:19 AM EST Endovascular Neurosurgery Progress Note SUBJECTIVE: No reported events overnight. Pt this am pt reported having headaches overnight and this am. Review of Systems: CONSTITUTIONAL: negative for fevers, chills, fatigue and malaise EYES: negative for double vision, blurred vision and photophobia HEENT: negative for tinnitus, epistaxis and sore throat RESPIRATORY: negative for cough, shortness of breath, wheezing CARDIOVASCULAR: negative for chest pain, palpitations, syncope, edema GASTROINTESTINAL: negative for nausea, vomiting GENITOURINARY: negative for incontinence MUSCULOSKELETAL: negative for neck or back pain NEUROLOGICAL: Negative for weakness and tingling negative for headaches and dizziness PSYCHIATRIC: negative for anxiety Review of systems otherwise negative. OBJECTIVE: Vitals: 12/11/20 0817 BP: 116/86 Pulse: 52 Resp: 16 Temp: 97.6 F (36.4 C) SpO2: General: Gen: normal habitus, NAD HEENT: NCAT, mucosa moist Cvs: RRR, S1 S2 normal Resp: symmetric unlabored breathing Abd: s/nd/nt Ext: no edema Skin: no lesions seen, warm and dry Neuro: Gen: awake and alert, oriented x3. Lang/speech: no aphasia or dysarthria. Follows commands. CN: PERRL, EOMI, VFF, V1-3 intact, face symmetric, hearing intact, shoulder shrug symmetric, tonguemidline Motor: grossly 5/5 UE and LE b/l Sense: LT intact in all 4 ext. Coord: FTN and HTS intact b/l DTR: deferred Gait: deferred NIH Stroke Scale: 1a Level of consciousness: 0 - alert; keenly responsive 1b. LOC questions: 0 - answers both questions correctly 1c. LOC commands: 0 - performs both tasks correctly 2. Best Gaze: 0 - normal 3. Visual: 0 - no visual loss 4. Facial Palsy: 0 - normal symmetric movement 5a. Motor left arm: 0 - no drift, limb holds 90 (or 45) degrees for full 10 seconds 5b. Motor right arm: 0 - no drift, limb holds 90 (or 45) degrees for full 10 seconds 6a. Motor left le - no drift; leg holds 30 degree position for full 5 seconds 6b Motor right le - no drift; leg holds 30 degree position for full 5 seconds 7. Limb Ataxia: 0 - absent 8. Sensory: 0 - normal; no sensory loss 9. Best Language: 0 - no aphasia, normal 10. Dysarthria: 0 - normal 11. Extinction and Inattention: 0 - no abnormality Total: 0 MRS: 0 LABS: Reviewed. RADIOLOGY: Images were personally reviewed including: TCD 12/09/2020 wnl TCD 12/07/2020 wnl DSA 12/04/2020 --No evidence of clear aneurysm, arteriovenous malformation, arterial dissection, stenosis, or veno-occlusive disease. --Normal variants include bilateral P-comm's, right P-comm infundibulum, anterior communicating artery fenestration. ASSESSMENT: 50-year-old male with no past medical history. Admitted 12/03/2020 with perimesencephalic SAH, DSA neg for lesions. H and H 2, mF 3. Ruptured aneurysm cannot be ruled out. Post bleed day 8 TCD 12/07/2020 wnl. Pt is well today. Risk and benefit of repeat dx dsa discussed, pt consented to the procedure. PLAN: --management per neuro (nimotop, TCDs) last tcd 12/07/2020 --mg goal 3-4, last 1.9 --continue Lipitor 40 --f/u MRI c spine w and wo con (r/o spinal AVM/F) --SBP goal 90-130 --plan for repeat DSA 10d after bleed (12/13/2020). Npo 12/13/2020 midnight --Upon discharge follow up with Dr. Box in [address] Joseph in 3 months with CTA head with contrast. Case discussed with Dr. joseph attending. Geoff Dodson MD, PhD Stroke, Neurocritical Care & Neurointervention [facility] Electronically signed 12/11/2020 at 10:19 AM Associated attestation - Dell Ventura MD - 12/11/2020 12:09 PM EST I reviewed the Fellow's note and agree with the documented findings and plan of care. Any areas of disagreement are noted on the chart. I agree with the chief complaint, past medical history, past surgical history, allergies, medications, social and family history as documented unless otherwise noted below. I have personally seen and evaluated the patient and images. I find the patient's history and physical exam are consistent with the Fellow's documentation. I agree with the care provided, treatment rendered, disposition and follow-up plan. 50 yo gentleman admitted for perimesencephalic subarachnoid hemorrhage with negative DSA with Dr. Joseph on December 03, 2020. Monitoring for cerebral vasospasm and managing headaches. SAH protocol Forfollow-up DSA December 13, 2020. Followup mri studies 35 minutes with greater than 50% of time spent face to face, counseling, coordinating care, examining patient, reviewing images and labs personally, and speaking with team. Dell Ventura MD Office [phone]. Cell [phone] Stroke, Neurocritical Care & Neurointervention [facility] * Israel Darden MD - 12/11/2020 6:46 AM EST Daily Progress Note Neuro Critical Care Patient Name: Anibal Damon Patient : 1970 Room/Bed: 0540/0540-01 Code Status: Full Code Allergies: No Known Allergies CHIEF COMPLAINT: Headache INTERVAL HISTORY Initial Presentation (Admitted 12/03/2020): The patient is a 50-year-old male with a history of complex regional pain syndrome s/p nerve stimulator who was transferred from [facility] for SAH. Pt notes that he went on a run at approximately 0900, and developed sudden onset worst headache at 0930. Pt went home and took some ibuprofen and took a nap. Pt woke up and his headache was still present, which lead him to taking half a pill on an unknown pain medication. After that did not resolve his pain, he went to [facility] ED for evaluation. CT Head w/o contrast and CTA Neck and Head revealed SAH with no aneurysm. Pt was transferred to [facility] for neuro-endovascular and neuro-critical care evaluation. Pt arrived to [facility], where the CTH and CTA re-demonstrated the SAH with no obvious aneurysm. Pt still notes having his severe non-radiating headache with associated photophobia. Pt denies anyuse of AC/AP. Pt denies any fevers, chills, change in vision, chest pain, shortness of breath, abdominal pain, nausea/vomiting, numbness/tingling or weakness. Admitted to the Neuro ICU for close monitoring. For SAH Dunn&Villarreal: 2, Modified Oliveros: 3 Hospital Course: 12/04/2020: Patient complained of headache overnight, improved with PRN Fentanyl. This morning, patient continues to have a headache but reports improvement and states it is tolerable. Started on Decadron 4mg Q8h IV x2 days and Neurontin 200mg QHS for symptom management. Clinical exam remains stable. Patient is AOx3 without acute focal deficits. Reports baseline right eyelid drooping. Also has chronic numbness in his left upper extremity due to a previous shoulder injury. Underwent diagnostic cerebral angiogram which did not reveal any cerebral aneurysm. Endovascular recommending MRI cervical spine. 12/05/2020: Patient stated his headache was much improved. Patient cannot undergo MRI due to metallic splitter leads for his neurostimulator. Repeat diagnostic angiogram in a week, will continue Keppra till then. Patient transferred to stepdown unit, will remain under neuro ICU care. Patient on general diet and has been able to get out of bed and move around. PT OT consulted and recommend no therapy. 12/06/2020: Patient states his headache is much better. Patient's SBP goals are being met, will continue to monitor. Patient is off Cleviprex infusion and has not required labetalol for blood pressuremanagement. Patient has been tolerating oral diet well, worked with PT/OT, denies any nausea, vomiting. 12/07/2020: Patient had a headache overnight which resolved with Tylenol and magnesium. Patient states he currently has a mild headache but much better than before. Headache overnight was the worst since he has been on the floor but much better than the headache at presentation. Patient denies any new complaints, counseled regarding treatment plan. Patient expresses agreement and understanding. Patient will undergo TCD's today. 12/08/2020: Patient stated he had a headache overnight, different from before, relieved with Tylenol. TCD's yesterday showed no increased mean velocities or vasospasm. 12/09/2020: No acute events overnight. Patient denies any new complaints, states he had a headache overnight and was relieved with Tylenol. Expresses some photosensitivity. Patient is otherwise comfortable. 12/10/2020: No acute events. Last 24h: Patient had typical headache, aggravation of chronic back pain radiating to his left lower leg, resolved with Flexeril. Patient is planned for DSA by neuro endovascular on 12/12/2020 or 12/13/2020. Will add Robaxin to patient's pain regimen, oxycodone as needed. Will increase IV magnesium. CURRENT MEDICATIONS: SCHEDULED MEDICATIONS: magnesium sulfate 2 g Intravenous Daily methylPREDNISolone 4 mg Oral QAM AC methylPREDNISolone 4 mg Oral Nightly atorvastatin 40 mg Oral Nightly gabapentin 200 mg Oral Nightly lisinopril 10 mg Oral Daily famotidine 20 mg Oral BID sennosides-docusate sodium 2 tablet Oral Daily ondansetron 4 mg Intravenous Once citalopram 10 mg Oral Daily sodium chloride flush 10 mL Intravenous 2 times per day niMODipine 60 mg Oral 6 times per day CONTINUOUS INFUSIONS: PRN MEDICATIONS: acetaminophen, magnesium hydroxide, sodium chloride flush, promethazine OR ondansetron, labetalol VITALS: Temperature Range: Temp: 97.7 F (36.5 C) Temp Av.8 F (36.6 C) Min: 97.6 F (36.4 C) Max: 98.2 F(36.8 C) BP Range: Systolic (24hrs), Av , Min:127 , Max:146 Diastolic (24hrs), Av, Min:75, Max:96 Pulse Range: Pulse Av.2 Min: 55 Max: 61 Respiration Range: Resp Av.8 Min: 14 Max: 18 Current Pulse Ox: SpO2: 100 % 24HR Pulse Ox Range: SpO2 Av % Min: 100 % Max: 100 % Patient Vitals for the past 12 hrs: BP Temp Temp src Pulse Resp 12/11/20 0400 127/81 97.7 F (36.5 C) Oral 57 16 12/11/20 0000 131/88 97.6 F (36.4 C) Oral 55 16 12/10/20 2000 (!) 144/86 98.2 F (36.8 C) Oral 61 18 Estimated body mass index is 23.63 kg/m as calculated from the following: Height as of this encounter: 5' 9 (1.753 m). Weight as of this encounter: 160 lb (72.6 kg). []<16 Severe malnutrition []16 16.99 Moderate malnutrition []17 18.49 Mild malnutrition [x]18.5 24.9 Normal []25 29.9 Overweight (not obese) []30 34.9 Obese class 1 (Low Risk) []35 39.9 Obese class 2 (Moderate Risk) []?40 Obese class 3 (High Risk) RECENT LABS: Lab Results Component Value Date WBC 6.3 12/11/2020 HGB 15.4 12/11/2020 HCT 46.9 12/11/2020 PLT 343 12/11/2020 CHOL 182 12/04/2020 TRIG 34 12/04/2020 HDL 68 12/04/2020 NA 137 12/11/2020 K 4.2 12/11/2020 CL 104 12/11/2020 CREATININE 0.82 12/11/2020 BUN 12 12/11/2020 CO2 22 12/11/2020 INR 1.0 12/03/2020 LABA1C 5.3 12/04/2020 24 HOUR INTAKE/OUTPUT: No intake or output data in the 24 hours ending 12/11/20 0646 IMAGING: Diagnostic angiogram: No evidence of clear aneurysm, AVM, arterial dissection, stenosis or venoocclusive disease. Labs and Images reviewed with: [] Dr. Samy Groves [x] Dr. Conor Raya [] Dr. Levy Jackman [] There are no new interval images to review. PHYSICAL EXAM CONSTITUTIONAL: Well developed, well nourished, alert and oriented x 3, in no acute distress. GCS 15. Nontoxic. No dysarthria. No aphasia. HEAD: normocephalic, atraumatic EYES: PERRLA, EOMI. ENT: moist mucous membranes NECK: supple, symmetric LUNGS: Equal air entry bilaterally CARDIOVASCULAR: normal s1 / s2, RRR, distal pulses intact ABDOMEN: Soft, no rigidity NEUROLOGIC: Mental Status: A & O x3,awake Cranial Nerves: cranial nerves II-XII are grossly intact Motor Exam: Drift: absent Tone: normal Motor exam is symmetrical 5 out of 5 all extremities bilaterally Sensory: Touch: Right Upper Extremity: normal Left Upper Extremity: normal Right Lower Extremity: normal Left Lower Extremity: normal Plantar Response: Right: downgoing Left: downgoing Clonus: absent Benjamin's: absent DRAINS: [x] There are no drains for Neuro Critical Care to monitor at this time. ASSESSMENT AND PLAN: NEUROLOGIC: - Diffuse, high grade SAH, unclear etiology - POD #7 s/p diagnostic cerebral angiogram which was negative for aneurysm or vascular malformation - Neuro Endovascular following; planning repeat DSA on 12/13/2020. - TCD 12/07/2020: No evidence of vasospasm. - Continue Nimodipine 60mg Q4h - Lipitor 40 mg nightly - Continue Medrol taper - Symptom/pain management; Neurontin 200mg QHS, Decadron 2-day course completed. - Goal SBP 90-140 - Neuro checks per protocol CARDIOVASCULAR: - Goal SBP 90-140 - PRN Labetalol - History of borderline hypertension, not on any meds outpatient - Lisinopril 10mg QD - Lipitor 40 mg nightly - Troponin 6, EKG unremarkable. - Echocardiogram: EF 55%, grade 1 LVDD, LA and RA mildly dilated, mild MR. - Continue telemetry PULMONARY: - Maintaining O2 sats on room air - Incentive spirometry RENAL/FLUID/ELECTROLYTE: - Normal renal function - Goal Magnesium 3-4. Last mag 2.0, 4 g replacement ordered. - Replace electrolytes PRN - Daily BMP GI/NUTRITION: NUTRITION: DIET GENERAL; - Bowel regimen: Senokot-S daily - GI prophylaxis: Pepcid 20 mg twice daily ID: - Afebrile - No leukocytosis - 12/03 COVID-19 negative - Continue to monitor for fevers - Daily CBC HEME: - H&H stable - Platelets stable - Daily CBC ENDOCRINE: - Continue to monitor blood glucose, goal <180 - Glucose well controlled OTHER: - PT/OT/ST - Code Status: FULL PROPHYLAXIS: Stress ulcer: H2 oneida DVT PROPHYLAXIS: - SCD sleeves - Thigh High - No chemoprophylaxis anticoagulation at this time due to SAH, unclear etiology. DISPOSITION: [] To remain ICU, stepdown status. [x] OK for out of ICU from Neuro Critical Care standpoint, stepdown status, to remain under neuro critical care team. We will continue to follow along. For any changes in exam or patient status please contact Neuro Critical Care. Israel Darden MD Neuro Critical Care Pager [phone] 12/11/2020 6:46 AM Associated attestation - Conor Raya MD - 12/11/2020 11:20 AM EST I reviewed the resident s note and agree with the documented findings and plan of care. Any areas of disagreement are noted on the chart. I agree with the chief complaint, interval history, 24 hour events, medications and examination as documented unless otherwise noted below. I have personally seen and evaluated the patient and images. I find the patient's history and physical exam are consistent with the Resident documentation. I agree with the care provided, treatment rendered, disposition and follow-up plan. REVIEW OF SYSTEMS CONSTITUTIONAL: negative for fatigue and malaise EYES: negative for double vision and photophobia HEENT: negative for tinnitus and sore throat RESPIRATORY: negative for cough, shortness of breath CARDIOVASCULAR: negative for chest pain, palpitations, or syncope GASTROINTESTINAL: negative for abdominal pain, nausea, vomiting, diarrhea, or constipation GENITOURINARY: negative for incontinence or retention MUSCULOSKELETAL: negative for neck or back pain, negative for extremity pain NEUROLOGICAL: Negative for seizures, headaches, confusion, aphasia, dysarthria, weakness or numbness. PSYCHIATRIC: negative for agitation, hallucination, SI/HI SKIN Negative for spontaneous contusions, rashes, or lesions Neurological examination: Alert and oriented to person, place and time. No focal motor deficits. Perimesencephalic SAH. Angio negative. Cannot have MRI due to stimulator. Repeat angio on December 12 or 2020 Continue daily nimotop. TCDs WNL. Echo. Activity as tolerated. Medrol dose pack for headache - completed. Tylenol and Oxy (severe pain) for breakthrough pain. Robaxin for back pain. Bowel regimen. I independently reviewed all labs, imaging and EKG tracings I have spent more than 50% of this 25 minute encounter in counseling and/or coordinating care with and for the patient. Patient seen during rounds on 12/11/2020 * Geoff Dodson MD - 12/10/2020 9:55 AM EST Endovascular Neurosurgery Progress Note SUBJECTIVE: No reported events overnight. Pt this am reports x3 additional headaches. Currently he is well. Review of Systems: CONSTITUTIONAL: negative for fevers, chills, fatigue and malaise EYES: negative for double vision, blurred vision and photophobia HEENT: negative for tinnitus, epistaxis and sore throat RESPIRATORY: negative for cough, shortness of breath, wheezing CARDIOVASCULAR: negative for chest pain, palpitations, syncope, edema GASTROINTESTINAL: negative for nausea, vomiting GENITOURINARY: negative for incontinence MUSCULOSKELETAL: negative for neck or back pain NEUROLOGICAL: Negative for weakness and tingling negative for headaches and dizziness PSYCHIATRIC: negative for anxiety Review of systems otherwise negative. OBJECTIVE: Vitals: 12/10/20 0744 BP: 129/75 Pulse: 56 Resp: 14 Temp: 97.7 F (36.5 C) SpO2: 100% General: Gen: normal habitus, NAD HEENT: NCAT, mucosa moist Cvs: RRR, S1 S2 normal Resp: symmetric unlabored breathing Abd: s/nd/nt Ext: no edema Skin: no lesions seen, warm and dry Neuro: Gen: awake and alert, oriented x3. Lang/speech: no aphasia or dysarthria. Follows commands. CN: PERRL, EOMI, VFF, V1-3 intact, face symmetric, hearing intact, shoulder shrug symmetric, tonguemidline Motor: grossly 5/5 UE and LE b/l Sense: LT intact in all 4 ext. Coord: FTN and HTS intact b/l DTR: deferred Gait: deferred NIH Stroke Scale: 1a Level of consciousness: 0 - alert; keenly responsive 1b. LOC questions: 0 - answers both questions correctly 1c. LOC commands: 0 - performs both tasks correctly 2. Best Gaze: 0 - normal 3. Visual: 0 - no visual loss 4. Facial Palsy: 0 - normal symmetric movement 5a. Motor left arm: 0 - no drift, limb holds 90 (or 45) degrees for full 10 seconds 5b. Motor right arm: 0 - no drift, limb holds 90 (or 45) degrees for full 10 seconds 6a. Motor left le - no drift; leg holds 30 degree position for full 5 seconds 6b Motor right le - no drift; leg holds 30 degree position for full 5 seconds 7. Limb Ataxia: 0 - absent 8. Sensory: 0 - normal; no sensory loss 9. Best Language: 0 - no aphasia, normal 10. Dysarthria: 0 - normal 11. Extinction and Inattention: 0 - no abnormality Total: 0 MRS: 0 LABS: Reviewed. RADIOLOGY: Images were personally reviewed including: TCD 12/09/2020 wnl TCD 12/07/2020 wnl DSA 12/04/2020 --No evidence of clear aneurysm, arteriovenous malformation, arterial dissection, stenosis, or veno-occlusive disease. --Normal variants include bilateral P-comm's, right P-comm infundibulum, anterior communicating artery fenestration. ASSESSMENT: 50-year-old male with no past medical history. Admitted 12/03/2020 with perimesencephalic SAH, DSA neg for lesions. H and H 2, mF 3. Ruptured aneurysm cannot be ruled out. Post bleed day 8 TCD 12/09/2020 wnl. Pt is well today. PLAN: --management per NSICU team (nimotop, TCDs) last tcd 12/07/2020 --mg goal 3-4, last 2.0 --continue Lipitor 40 --f/u MRI c spine w and wo con (r/o spinal AVM/F) --SBP goal 90-130 --plan for repeat DSA 10d after bleed (12/13/2020) --Upon discharge follow up with Dr. Box in [address] Joseph in 3 months with CTA head with contrast. Case discussed with Dr. Ventura attending, followed by dr. opal Dodson MD, PhD Stroke, Neurocritical Care & Neurointervention [facility] Stroke Network [facility] Stroke [facility] Electronically signed 12/10/2020 at 9:55 AM Associated attestation - Dell Ventura MD - 12/10/2020 9:44 PM EST I reviewed the Fellow's note and agree with the documented findings and plan of care. Any areas of disagreement are noted on the chart. I agree with the chief complaint, past medical history, past surgical history, allergies, medications, social and family history as documented unless otherwise noted below. I have personally seen and evaluated the patient and images. I find the patient's history and physical exam are consistent with the Fellow's documentation. I agree with the care provided, treatment rendered, disposition and follow-up plan. 50 yo Gentleman admitted for perimesencephalic subarachnoid hemorrhage with negative DSA with Dr. Joseph on December 03, 2020. Monitoring for cerebral vasospasm. SAH protocol For follow-up DSA December 13, 2020 35 minutes with greater than 50% of time spent face to face, counseling, coordinating care, examining patient, reviewing images and labs personally, and speaking with team. Dell Ventura MD Office [phone]. Cell [phone] Stroke, Neurocritical Care & Neurointervention [facility] Stroke Network [facility] Stroke [facility] * Israel Darden MD - 12/10/2020 7:28 AM EST Daily Progress Note Neuro Critical Care Patient Name: Anibal Damon Patient : 1970 Room/Bed: 0540/0540-01 Code Status: Full Code Allergies: No Known Allergies CHIEF COMPLAINT: Headache INTERVAL HISTORY Initial Presentation (Admitted 12/03/2020): The patient is a 50-year-old male with a history of complex regional pain syndrome s/p nerve stimulator who was transferred from [facility] for SAH. Pt notes that he went on a run at approximately 0900, and developed sudden onset worst headache at 0930. Pt went home and took some ibuprofen and took a nap. Pt woke up and his headache was still present, which lead him to taking half a pill on an unknown pain medication. After that did not resolve his pain, he went to [facility] ED for evaluation. CT Head w/o contrast and CTA Neck and Head revealed SAH with no aneurysm. Pt was transferred to [facility] for neuro-endovascular and neuro-critical care evaluation. Pt arrived to [facility], where the CTH and CTA re-demonstrated the SAH with no obvious aneurysm. Pt still notes having his severe non-radiating headache with associated photophobia. Pt denies anyuse of AC/AP. Pt denies any fevers, chills, change in vision, chest pain, shortness of breath, abdominal pain, nausea/vomiting, numbness/tingling or weakness. Admitted to the Neuro ICU for close monitoring. For SAH Dunn&Villarreal: 2, Modified Oliveros: 3 Hospital Course: 12/04/2020: Patient complained of headache overnight, improved with PRN Fentanyl. This morning, patient continues to have a headache but reports improvement and states it is tolerable. Started on Decadron 4mg Q8h IV x2 days and Neurontin 200mg QHS for symptom management. Clinical exam remains stable. Patient is AOx3 without acute focal deficits. Reports baseline right eyelid drooping. Also has chronic numbness in his left upper extremity due to a previous shoulder injury. Underwent diagnostic cerebral angiogram which did not reveal any cerebral aneurysm. Endovascular recommending MRI cervical spine. 12/05/2020: Patient stated his headache was much improved. Patient cannot undergo MRI due to metallic splitter leads for his neurostimulator. Repeat diagnostic angiogram in a week, will continue Keppra till then. Patient transferred to stepdown unit, will remain under neuro ICU care. Patient on general diet and has been able to get out of bed and move around. PT OT consulted and recommend no therapy. 12/06/2020: Patient states his headache is much better. Patient's SBP goals are being met, will continue to monitor. Patient is off Cleviprex infusion and has not required labetalol for blood pressuremanagement. Patient has been tolerating oral diet well, worked with PT/OT, denies any nausea, vomiting. 12/07/2020: Patient had a headache overnight which resolved with Tylenol and magnesium. Patient states he currently has a mild headache but much better than before. Headache overnight was the worst since he has been on the floor but much better than the headache at presentation. Patient denies any new complaints, counseled regarding treatment plan. Patient expresses agreement and understanding. Patient will undergo TCD's today. 12/08/2020: Patient stated he had a headache overnight, different from before, relieved with Tylenol. TCD's yesterday showed no increased mean velocities or vasospasm. 12/09/2020: No acute events overnight. Patient denies any new complaints, states he had a headache overnight and was relieved with Tylenol. Expresses some photosensitivity. Patient is otherwise comfortable. Last 24h: No acute events overnight. Patient denies any new complaints, again had typical headache overnight and was relieved with Tylenol. Patient is otherwise comfortable. CURRENT MEDICATIONS: SCHEDULED MEDICATIONS: methylPREDNISolone 4 mg Oral QAM AC methylPREDNISolone 4 mg Oral Lunch methylPREDNISolone 4 mg Oral Nightly atorvastatin 40 mg Oral Nightly gabapentin 200 mg Oral Nightly lisinopril 10 mg Oral Daily famotidine 20 mg Oral BID sennosides-docusate sodium 2 tablet Oral Daily ondansetron 4 mg Intravenous Once citalopram 10 mg Oral Daily sodium chloride flush 10 mL Intravenous 2 times per day niMODipine 60 mg Oral 6 times per day CONTINUOUS INFUSIONS: PRN MEDICATIONS: acetaminophen, magnesium hydroxide, sodium chloride flush, promethazine OR ondansetron, labetalol VITALS: Temperature Range: Temp: 97.7 F (36.5 C) Temp Av F (36.7 C) Min: 97.6 F (36.4 C) Max: 98.6 F (37 C) BP Range: Systolic (24hrs), Av , Min:105 , Max:148 Diastolic (24hrs), Av, Min:70, Max:90 Pulse Range: Pulse Av.8 Min: 52 Max: 65 Respiration Range: Resp Av.2 Min: 8 Max: 15 Current Pulse Ox: SpO2: 99 % 24HR Pulse Ox Range: SpO2 Av.2 % Min: 96 % Max: 100 % Patient Vitals for the past 12 hrs: BP Temp Temp src Pulse Resp SpO2 12/10/20 0410 (!) 148/90 97.7 F (36.5 C) Temporal 52 13 99 % 12/09/20 2304 134/84 98.1 F (36.7 C) Temporal 55 10 97 % Estimated body mass index is 23.63 kg/m as calculated from the following: Height as of this encounter: 5' 9 (1.753 m). Weight as of this encounter: 160 lb (72.6 kg). []<16 Severe malnutrition []16 16.99 Moderate malnutrition []17 18.49 Mild malnutrition [x]18.5 24.9 Normal []25 29.9 Overweight (not obese) []30 34.9 Obese class 1 (Low Risk) []35 39.9 Obese class 2 (Moderate Risk) []?40 Obese class 3 (High Risk) RECENT LABS: Lab Results Component Value Date WBC 6.5 12/10/2020 HGB 14.6 12/10/2020 HCT 44.7 12/10/2020 PLT 350 12/10/2020 CHOL 182 12/04/2020 TRIG 34 12/04/2020 HDL 68 12/04/2020 NA 134 (L) 12/10/2020 K 4.4 12/10/2020 CL 101 12/10/2020 CREATININE 0.82 12/10/2020 BUN 13 12/10/2020 CO2 22 12/10/2020 INR 1.0 12/03/2020 LABA1C 5.3 12/04/2020 24 HOUR INTAKE/OUTPUT: No intake or output data in the 24 hours ending 12/10/20 0728 IMAGING: Diagnostic angiogram: No evidence of clear aneurysm, AVM, arterial dissection, stenosis or venoocclusive disease. Labs and Images reviewed with: [] Dr. Samy Groves [x] Dr. Conor Raya [] Dr. Levy Jackman [] There are no new interval images to review. PHYSICAL EXAM CONSTITUTIONAL: Well developed, well nourished, alert and oriented x 3, in no acute distress. GCS 15. Nontoxic. No dysarthria. No aphasia. HEAD: normocephalic, atraumatic EYES: PERRLA, EOMI. ENT: moist mucous membranes NECK: supple, symmetric LUNGS: Equal air entry bilaterally CARDIOVASCULAR: normal s1 / s2, RRR, distal pulses intact ABDOMEN: Soft, no rigidity NEUROLOGIC: Mental Status: A & O x3,awake Cranial Nerves: cranial nerves II-XII are grossly intact Motor Exam: Drift: absent Tone: normal Motor exam is symmetrical 5 out of 5 all extremities bilaterally Sensory: Touch: Right Upper Extremity: normal Left Upper Extremity: normal Right Lower Extremity: normal Left Lower Extremity: normal Plantar Response: Right: downgoing Left: downgoing Clonus: absent Benjamin's: absent DRAINS: [x] There are no drains for Neuro Critical Care to monitor at this time. ASSESSMENT AND PLAN: NEUROLOGIC: - Diffuse, high grade SAH, unclear etiology - POD #6 s/p diagnostic cerebral angiogram which was negative for aneurysm or vascular malformation - Neuro Endovascular following; planning repeat DSA on 12/13/2020. - TCD 12/07/2020: No evidence of vasospasm. - Continue Nimodipine 60mg Q4h - Lipitor 40 mg nightly - Continue Medrol 5-day taper - Symptom/pain management; Neurontin 200mg QHS, Decadron 2-day course completed. - Goal SBP 90-140 - Neuro checks per protocol CARDIOVASCULAR: - Goal SBP 90-140 - PRN Labetalol - History of borderline hypertension, not on any meds outpatient - Lisinopril 10mg QD - Lipitor 40 mg nightly - Troponin 6, EKG unremarkable. - Echocardiogram: EF 55%, grade 1 LVDD, LA and RA mildly dilated, mild MR. - Continue telemetry PULMONARY: - Maintaining O2 sats on room air - Incentive spirometry RENAL/FLUID/ELECTROLYTE: - Normal renal function - BUN 13/ Creatinine 0.82 - Monitor I&O - Goal Magnesium 3-4. Last mag 2.0, 2 g replacement ordered. - Replace electrolytes PRN - Daily BMP GI/NUTRITION: NUTRITION: DIET GENERAL; - Bowel regimen: Senokot-S daily - GI prophylaxis: Pepcid 20 mg twice daily ID: - Afebrile - No leukocytosis - 12/03 COVID-19 negative - Continue to monitor for fevers - Daily CBC HEME: - H&H stable - Platelets stable - Daily CBC ENDOCRINE: - Continue to monitor blood glucose, goal <180 - Glucose well controlled OTHER: - PT/OT/ST - Code Status: FULL PROPHYLAXIS: Stress ulcer: H2 [place] DVT PROPHYLAXIS: - SCD sleeves - Thigh High - No chemoprophylaxis anticoagulation at this time due to SAH, unclear etiology. DISPOSITION: [] To remain ICU, stepdown status. [x] OK for out of ICU from Neuro Critical Care standpoint, stepdown status, to remain under neuro critical care team. We will continue to follow along. For any changes in exam or patient status please contact Neuro Critical Care. Israel Darden MD Neuro Critical Care Pager [phone] 12/10/2020 7:28 AM Associated attestation - Conor Raya MD - 12/10/2020 11:37 AM EST I reviewed the resident s note and agree with the documented findings and plan of care. Any areas of disagreement are noted on the chart. I agree with the chief complaint, interval history, 24 hour events, medications and examination as documented unless otherwise noted below. I have personally seen and evaluated the patient and images. I find the patient's history and physical exam are consistent with the Resident documentation. I agree with the care provided, treatment rendered, disposition and follow-up plan. REVIEW OF SYSTEMS CONSTITUTIONAL: negative for fatigue and malaise EYES: negative for double vision and photophobia HEENT: negative for tinnitus and sore throat RESPIRATORY: negative for cough, shortness of breath CARDIOVASCULAR: negative for chest pain, palpitations, or syncope GASTROINTESTINAL: negative for abdominal pain, nausea, vomiting, diarrhea, or constipation GENITOURINARY: negative for incontinence or retention MUSCULOSKELETAL: negative for neck or back pain, negative for extremity pain NEUROLOGICAL: Negative for seizures, headaches, confusion, aphasia, dysarthria, weakness or numbness. PSYCHIATRIC: negative for agitation, hallucination, SI/HI SKIN Negative for spontaneous contusions, rashes, or lesions Neurological examination: Alert and oriented to person, place and time. No focal motor deficits. Perimesencephalic SAH. Angio negative. Cannot have MRI due to stimulator. Repeat angio on December 13, 2020 Continue daily nimotop and TCDs. Echo. Activity as tolerated. Medrol dose pack for headache. Tylenol is adequate for breakthrough pain. Bowel regimen. I independently reviewed all labs, imaging and EKG tracings I have spent more than 50% of this 25 minute encounter in counseling and/or coordinating care with and for the patient. Patient seen during rounds on 12/10/2020 * Edie Loyd MS, RD, LD - 12/09/2020 2:02 PM EST Nutrition Assessment Type and Reason for Visit: Initial(Length of stay) Nutrition Recommendations/Plan: Continue general diet as tolerated. Add oral nutritional supplements if/as needed. Nutrition Assessment: Pt reports fair appetite. States he typically eats only once per day at home and snacks throughout the day. Reports eating ~50% of 3 meals since admission. Family at bedside reports pt eating approximately the same amount of food per day (but more spread out throughout theday). Current Nutrition Therapies: DIET GENERAL; Anthropometric Measures: Height: 5' 9 (175.3 cm) Current Body Wt: 160 lb (72.6 kg)(admission) BMI: 23.6 Nutrition Diagnosis: No nutrition diagnosis at this time Nutrition Interventions: Food and/or Nutrient Delivery: Continue Current Diet Nutrition Education/Counseling: No recommendation at this time Coordination of Nutrition Care: No recommendation at this time Nutrition Monitoring and Evaluation: Behavioral-Environmental Outcomes: None Identified Food/Nutrient Intake Outcomes: None Identified Physical Signs/Symptoms Outcomes: None Identified Discharge Planning: Too soon to determine Contact: [phone] * Geoff Dodson MD - 12/09/2020 8:00 AM EST Endovascular Neurosurgery Progress Note SUBJECTIVE: No reported events overnight. Pt this am has no acute complaints. Review of Systems: CONSTITUTIONAL: negative for fevers, chills, fatigue and malaise EYES: negative for double vision, blurred vision and photophobia HEENT: negative for tinnitus, epistaxis and sore throat RESPIRATORY: negative for cough, shortness of breath, wheezing CARDIOVASCULAR: negative for chest pain, palpitations, syncope, edema GASTROINTESTINAL: negative for nausea, vomiting GENITOURINARY: negative for incontinence MUSCULOSKELETAL: negative for neck or back pain NEUROLOGICAL: Negative for weakness and tingling negative for headaches and dizziness PSYCHIATRIC: negative for anxiety Review of systems otherwise negative. OBJECTIVE: Vitals: 12/09/20 1603 BP: 105/87 Pulse: 65 Resp: 15 Temp: 98.6 F (37 C) SpO2: 99% General: Gen: normal habitus, NAD HEENT: NCAT, mucosa moist Cvs: RRR, S1 S2 normal Resp: symmetric unlabored breathing Abd: s/nd/nt Ext: no edema Skin: no lesions seen, warm and dry Neuro: Gen: awake and alert, oriented x3. Lang/speech: no aphasia or dysarthria. Follows commands. CN: PERRL, EOMI, VFF, V1-3 intact, face symmetric, hearing intact, shoulder shrug symmetric, tonguemidline Motor: grossly 5/5 UE and LE b/l Sense: LT intact in all 4 ext. Coord: FTN and HTS intact b/l DTR: deferred Gait: deferred NIH Stroke Scale: 1a Level of consciousness: 0 - alert; keenly responsive 1b. LOC questions: 0 - answers both questions correctly 1c. LOC commands: 0 - performs both tasks correctly 2. Best Gaze: 0 - normal 3. Visual: 0 - no visual loss 4. Facial Palsy: 0 - normal symmetric movement 5a. Motor left arm: 0 - no drift, limb holds 90 (or 45) degrees for full 10 seconds 5b. Motor right arm: 0 - no drift, limb holds 90 (or 45) degrees for full 10 seconds 6a. Motor left le - no drift; leg holds 30 degree position for full 5 seconds 6b Motor right le - no drift; leg holds 30 degree position for full 5 seconds 7. Limb Ataxia: 0 - absent 8. Sensory: 0 - normal; no sensory loss 9. Best Language: 0 - no aphasia, normal 10. Dysarthria: 0 - normal 11. Extinction and Inattention: 0 - no abnormality Total: 0 MRS: 0 LABS: Reviewed. RADIOLOGY: Images were personally reviewed including: TCD 12/07/2020 wnl DSA 12/04/2020 --No evidence of clear aneurysm, arteriovenous malformation, arterial dissection, stenosis, or veno-occlusive disease. --Normal variants include bilateral P-comm's, right P-comm infundibulum, anterior communicating artery fenestration. ASSESSMENT: 50-year-old male with no past medical history. Admitted 12/03/2020 with perimesencephalic SAH, DSA neg for lesions. H and H 2, mF 3. Ruptured aneurysm cannot be ruled out. Post bleed day 7 TCD 12/07/2020 wnl. Pt is well today. PLAN: --management per NSICU team (nimotop, TCDs) last tcd 12/07/2020 --mg goal 3-4, last 2.1 --continue Lipitor 40 --f/u MRI c spine w and wo con (r/o spinal AVM/F) --SBP goal 90-130 --plan for repeat DSA 10d after bleed (12/13/2020) --Upon discharge follow up with Dr. Box in [address] Joseph in 3 months with CTA head with contrast. Case discussed with Dr. joseph attending. Geoff Dodson MD, PhD Stroke, Neurocritical Care & Neurointervention [facility] Electronically signed 12/09/2020 at 6:45 PM Associated attestation - Carolyn Joseph MD - 12/12/2020 4:19 PM EST Stroke and Neurointerventional Attending: Late Entry Note for Service date 12.09.2020 I obtained brief history, examined the patient,reviewed the fellow's/Mid level provider/and resident s note and agree with the documented findings and plan of care. Any areas of disagreement are noted on the chart. I agree with the chief complaint, past medical history, past surgical history, allergies, medications, social and family history as documented unless otherwise noted above. Total time for evaluation including obtaining history, chart review, physical examination, 35 minutes Carolyn Joseph MD, MS Office [phone]. Cell [phone] Stroke, Neurocritical Care & Neurointervention [facility] * Samantha Husain MD - 12/09/2020 7:58 AM EST Daily Progress Note Neuro Critical Care Patient Name: Anibal Damon Patient : 1970 Room/Bed: 0540/0540-01 Code Status: Full Code Allergies: No Known Allergies CHIEF COMPLAINT: Headache INTERVAL HISTORY Initial Presentation (Admitted 12/03/2020): The patient is a 50-year-old male with a history of complex regional pain syndrome s/p nerve stimulator who was transferred from [facility] for SAH. Pt notes that he went on a run at approximately 0900, and developed sudden onset worst headache at 0930. Pt went home and took some ibuprofen and took a nap. Pt woke up and his headache was still present, which lead him to taking half a pill on an unknown pain medication. After that did not resolve his pain, he went to [facility] ED for evaluation. CT Head w/o contrast and CTA Neck and Head revealed SAH with no aneurysm. Pt was transferred to [facility] for neuro-endovascular and neuro-critical care evaluation. Pt arrived to [facility], where the CTH and CTA re-demonstrated the SAH with no obvious aneurysm. Pt still notes having his severe non-radiating headache with associated photophobia. Pt denies anyuse of AC/AP. Pt denies any fevers, chills, change in vision, chest pain, shortness of breath, abdominal pain, nausea/vomiting, numbness/tingling or weakness. Admitted to the Neuro ICU for close monitoring. For SAH Dunn&Villarreal: 2, Modified Oliveros: 3 Hospital Course: 12/04/2020: Patient complained of headache overnight, improved with PRN Fentanyl. This morning, patient continues to have a headache but reports improvement and states it is tolerable. Started on Decadron 4mg Q8h IV x2 days and Neurontin 200mg QHS for symptom management. Clinical exam remains stable. Patient is AOx3 without acute focal deficits. Reports baseline right eyelid drooping. Also has chronic numbness in his left upper extremity due to a previous shoulder injury. Underwent diagnostic cerebral angiogram which did not reveal any cerebral aneurysm. Endovascular recommending MRI cervical spine. 12/05/2020: Patient stated his headache was much improved. Patient cannot undergo MRI due to metallic splitter leads for his neurostimulator. Repeat diagnostic angiogram in a week, will continue Keppra till then. Patient transferred to stepdown unit, will remain under neuro ICU care. Patient on general diet and has been able to get out of bed and move around. PT OT consulted and recommend no therapy. 12/06/2020: Patient states his headache is much better. Patient's SBP goals are being met, will continue to monitor. Patient is off Cleviprex infusion and has not required labetalol for blood pressuremanagement. Patient has been tolerating oral diet well, worked with PT/OT, denies any nausea, vomiting. 12/07/2020: Patient had a headache overnight which resolved with Tylenol and magnesium. Patient states he currently has a mild headache but much better than before. Headache overnight was the worst since he has been on the floor but much better than the headache at presentation. Patient denies any new complaints, counseled regarding treatment plan. Patient expresses agreement and understanding. Patient will undergo TCD's today. 12/08/2020: Patient stated he had a headache overnight, different from before, relieved with Tylenol. TCD's yesterday showed no increased mean velocities or vasospasm. Last 24h: No acute events overnight. Patient denies any new complaints, states he had a headache overnight and was relieved with Tylenol. Expresses some photosensitivity. Patient is otherwise comfortable. Repeat TCD ordered for today. CURRENT MEDICATIONS: SCHEDULED MEDICATIONS: magnesium sulfate 2 g Intravenous Once methylPREDNISolone 4 mg Oral QAM AC methylPREDNISolone 4 mg Oral Lunch methylPREDNISolone 4 mg Oral Dinner methylPREDNISolone 4 mg Oral Nightly atorvastatin 40 mg Oral Nightly gabapentin 200 mg Oral Nightly lisinopril 10 mg Oral Daily famotidine 20 mg Oral BID sennosides-docusate sodium 2 tablet Oral Daily ondansetron 4 mg Intravenous Once citalopram 10 mg Oral Daily sodium chloride flush 10 mL Intravenous 2 times per day niMODipine 60 mg Oral 6 times per day CONTINUOUS INFUSIONS: PRN MEDICATIONS: acetaminophen, magnesium hydroxide, sodium chloride flush, promethazine OR ondansetron, labetalol VITALS: Temperature Range: Temp: 97.6 F (36.4 C) Temp Av.9 F (36.6 C) Min: 97.6 F (36.4 C) Max: 98.7 F(37.1 C) BP Range: Systolic (24hrs), Av , Min:123 , Max:155 Diastolic (24hrs), Av, Min:70, Max:102 Pulse Range: Pulse Av.2 Min: 53 Max: 60 Respiration Range: Resp Av.4 Min: 13 Max: 16 Current Pulse Ox: SpO2: 96 % 24HR Pulse Ox Range: SpO2 Av.2 % Min: 95 % Max: 99 % Patient Vitals for the past 12 hrs: BP Temp Temp src Pulse Resp SpO2 12/09/20 0739 123/70 97.6 F (36.4 C) Oral 58 15 96 % 12/09/20 0426 (!) 155/102 97.6 F (36.4 C) Oral 53 14 95 % 12/08/20 2330 123/88 97.8 F (36.6 C) Oral 53 13 96 % Estimated body mass index is 23.63 kg/m as calculated from the following: Height as of this encounter: 5' 9 (1.753 m). Weight as of this encounter: 160 lb (72.6 kg). []<16 Severe malnutrition []16 16.99 Moderate malnutrition []17 18.49 Mild malnutrition [x]18.5 24.9 Normal []25 29.9 Overweight (not obese) []30 34.9 Obese class 1 (Low Risk) []35 39.9 Obese class 2 (Moderate Risk) []?40 Obese class 3 (High Risk) RECENT LABS: Lab Results Component Value Date WBC 6.3 12/09/2020 HGB 15.0 12/09/2020 HCT 45.5 12/09/2020 PLT 343 12/09/2020 CHOL 182 12/04/2020 TRIG 34 12/04/2020 HDL 68 12/04/2020 NA 138 12/09/2020 K 4.7 12/09/2020 CL 103 12/09/2020 CREATININE 0.88 12/09/2020 BUN 13 12/09/2020 CO2 26 12/09/2020 INR 1.0 12/03/2020 LABA1C 5.3 12/04/2020 24 HOUR INTAKE/OUTPUT: No intake or output data in the 24 hours ending 12/09/20 0958 IMAGING: Diagnostic angiogram: No evidence of clear aneurysm, AVM, arterial dissection, stenosis or venoocclusive disease. Labs and Images reviewed with: [] Dr. Samy Groves [x] Dr. Conor Raya [] Dr. Levy Jackman [] There are no new interval images to review. PHYSICAL EXAM CONSTITUTIONAL: Well developed, well nourished, alert and oriented x 3, in no acute distress. GCS 15. Nontoxic. No dysarthria. No aphasia. HEAD: normocephalic, atraumatic EYES: PERRLA, EOMI. ENT: moist mucous membranes NECK: supple, symmetric LUNGS: Equal air entry bilaterally CARDIOVASCULAR: normal s1 / s2, RRR, distal pulses intact ABDOMEN: Soft, no rigidity NEUROLOGIC: Mental Status: A & O x3,awake Cranial Nerves: cranial nerves II-XII are grossly intact Motor Exam: Drift: absent Tone: normal Motor exam is symmetrical 5 out of 5 all extremities bilaterally Sensory: Touch: Right Upper Extremity: normal Left Upper Extremity: normal Right Lower Extremity: normal Left Lower Extremity: normal Deep Tendon Reflexes: Right Bicep: 2+ Left Bicep: 2+ Right Knee: 2+ Left Knee: 2+ Plantar Response: Right: downgoing Left: downgoing Clonus: absent Benjamin's: absent Coordination/Dysmetria: Heel to [place]: Right: normal Left: normal Finger to Nose: Right: normal Left: normal Dysdiadochokinesia: absent Gait: normal DRAINS: [x] There are no drains for Neuro Critical Care to monitor at this time. ASSESSMENT AND PLAN: NEUROLOGIC: - Diffuse, high grade SAH, unclear etiology - POD #5 s/p diagnostic cerebral angiogram which was negative for aneurysm or vascular malformation - Neuro Endovascular following; planning repeat DSA on 12/13/2020. - TCD 12/07/2020: No evidence of vasospasm. - Continue Nimodipine 60mg Q4h - Magnesium goal 3 4. - Lipitor 40 mg nightly - Medrol 5-day tapering course started. Day 2. - Symptom/pain management; Neurontin 200mg QHS, Decadron 2-day course completed. - Goal SBP 90-140 - Neuro checks per protocol CARDIOVASCULAR: - Goal SBP 90-140 - PRN Labetalol - History of borderline hypertension, not on any meds outpatient - Start Lisinopril 10mg QD - Lipitor 40 mg nightly - Troponin 6, EKG unremarkable. - Echocardiogram pending: EF 55%, grade 1 LVDD, LA and RA mildly dilated, mild MR. - Continue telemetry PULMONARY: - Maintaining O2 sats on room air - Incentive spirometry RENAL/FLUID/ELECTROLYTE: - Normal renal function - BUN 13/ Creatinine 0.88 - Monitor I&O - Goal Magnesium 3-4. Last mag 2.1, 2 g replacement ordered. - Replace electrolytes PRN - Daily BMP GI/NUTRITION: NUTRITION: DIET GENERAL; - Bowel regimen: Senokot-S daily - GI prophylaxis: Pepcid 20 mg twice daily ID: - Afebrile, Tmax 37.1 - No leukocytosis, WBC 6.3 - 12/03 COVID-19 negative - Continue to monitor for fevers - Daily CBC HEME: - H&H 15.0/45.5, stable - Platelets 343 - Daily CBC ENDOCRINE: - Continue to monitor blood glucose, goal <180 - Glucose well controlled OTHER: - UDS +Opiates, received in ED - PT/OT/ST - Code Status: FULL PROPHYLAXIS: Stress ulcer: H2 oneida DVT PROPHYLAXIS: - SCD sleeves - Thigh High - No chemoprophylaxis anticoagulation at this time due to SAH, unclear etiology. DISPOSITION: [] To remain ICU, stepdown status. [x] OK for out of ICU from Neuro Critical Care standpoint, stepdown status, to remain under neuro critical care team. We will continue to follow along. For any changes in exam or patient status please contact Neuro Critical Care. Samantha Husain MD Neuro Critical Care Pager [phone] 12/09/2020 9:58 AM Associated attestation - Conor Raya MD - 12/09/2020 10:22 AM EST I reviewed the resident s note and agree with the documented findings and plan of care. Any areas of disagreement are noted on the chart. I agree with the chief complaint, interval history, 24 hour events, medications and examination as documented unless otherwise noted below. I have personally seen and evaluated the patient and images. I find the patient's history and physical exam are consistent with the Resident documentation. I agree with the care provided, treatment rendered, disposition and follow-up plan. REVIEW OF SYSTEMS CONSTITUTIONAL: negative for fatigue and malaise EYES: negative for double vision and photophobia HEENT: negative for tinnitus and sore throat RESPIRATORY: negative for cough, shortness of breath CARDIOVASCULAR: negative for chest pain, palpitations, or syncope GASTROINTESTINAL: negative for abdominal pain, nausea, vomiting, diarrhea, or constipation GENITOURINARY: negative for incontinence or retention MUSCULOSKELETAL: negative for neck or back pain, negative for extremity pain NEUROLOGICAL: Negative for seizures, headaches, confusion, aphasia, dysarthria, weakness or numbness. PSYCHIATRIC: negative for agitation, hallucination, SI/HI SKIN Negative for spontaneous contusions, rashes, or lesions Neurological examination: Alert and oriented to person, place and time. No focal motor deficits. Perimesencephalic SAH. Angio negative. Cannot have MRI due to stimulator. Repeat angio on December 13, 2020 Continue daily nimotop and TCDs. Echo. Activity as tolerated. Medrol dose pack for headache. Tylenol for breakthrough pain. I independently reviewed all labs, imaging and EKG tracings I have spent more than 50% of this 25 minute encounter in counseling and/or coordinating care with and for the patient. Patient seen during rounds on 12/09/2020 * Geoff Dodson MD - 12/08/2020 8:00 AM EST Endovascular Neurosurgery Progress Note SUBJECTIVE: No reported events overnight. Pt reports some changes to his headaches symptoms yesterday. He notesassociated blurry vision and fuzzy thoughts. Pt is not back to baseline. Review of Systems: CONSTITUTIONAL: negative for fevers, chills, fatigue and malaise EYES: negative for double vision, blurred vision and photophobia HEENT: negative for tinnitus, epistaxis and sore throat RESPIRATORY: negative for cough, shortness of breath, wheezing CARDIOVASCULAR: negative for chest pain, palpitations, syncope, edema GASTROINTESTINAL: negative for nausea, vomiting GENITOURINARY: negative for incontinence MUSCULOSKELETAL: negative for neck or back pain NEUROLOGICAL: Negative for weakness and tingling negative for headaches and dizziness PSYCHIATRIC: negative for anxiety Review of systems otherwise negative. OBJECTIVE: Vitals: 12/08/20 0739 BP: (!) 131/91 Pulse: 52 Resp: 18 Temp: 97 F (36.1 C) SpO2: 100% General: Gen: normal habitus, NAD HEENT: NCAT, mucosa moist Cvs: RRR, S1 S2 normal Resp: symmetric unlabored breathing Abd: s/nd/nt Ext: no edema Skin: no lesions seen, warm and dry Neuro: Gen: awake and alert, oriented x3. Lang/speech: no aphasia or dysarthria. Follows commands. CN: PERRL, EOMI, VFF, V1-3 intact, face symmetric, hearing intact, shoulder shrug symmetric, tonguemidline Motor: grossly 5/5 UE and LE b/l Sense: LT intact in all 4 ext. Coord: FTN and HTS intact b/l DTR: deferred Gait: deferred NIH Stroke Scale: 1a Level of consciousness: 0 - alert; keenly responsive 1b. LOC questions: 0 - answers both questions correctly 1c. LOC commands: 0 - performs both tasks correctly 2. Best Gaze: 0 - normal 3. Visual: 0 - no visual loss 4. Facial Palsy: 0 - normal symmetric movement 5a. Motor left arm: 0 - no drift, limb holds 90 (or 45) degrees for full 10 seconds 5b. Motor right arm: 0 - no drift, limb holds 90 (or 45) degrees for full 10 seconds 6a. Motor left le - no drift; leg holds 30 degree position for full 5 seconds 6b Motor right le - no drift; leg holds 30 degree position for full 5 seconds 7. Limb Ataxia: 0 - absent 8. Sensory: 0 - normal; no sensory loss 9. Best Language: 0 - no aphasia, normal 10. Dysarthria: 0 - normal 11. Extinction and Inattention: 0 - no abnormality Total: 0 MRS: 0 LABS: Reviewed. RADIOLOGY: Images were personally reviewed including: TCD 12/07/2020 wnl DSA 12/04/2020 --No evidence of clear aneurysm, arteriovenous malformation, arterial dissection, stenosis, or veno-occlusive disease. --Normal variants include bilateral P-comm's, right P-comm infundibulum, anterior communicating artery fenestration. ASSESSMENT: 50-year-old male with no past medical history. Admitted 12/03/2020 with perimesencephalic SAH, DSA neg for lesions. H and H 2, mF 3. Ruptured aneurysm cannot be ruled out. Post bleed day 6 TCD 12/07/2020wnl. Pt is well today. PLAN: --management per NSICU team (nimotop, TCDs) last tcd 12/07/2020 --mg goal 3-4, last 1.7 --continue Lipitor 40 --f/u MRI c spine w and wo con (r/o spinal AVM/F) --SBP goal 90-130 --plan for repeat DSA 10d after bleed (12/13/2020) --Upon discharge follow up with Dr. Box in [address] Joseph in 3 months with CTA head with contrast. Case discussed with Dr. joseph attending. Geoff Dodson MD, PhD Stroke, Neurocritical Care & Neurointervention [facility] Stroke [facility] Electronically signed 12/08/2020 at 2:33 PM Associated attestation - Carolyn Joseph MD - 12/12/2020 4:18 PM EST Stroke and Neurointerventional Attending: Late Entry Note for Service date 12.08.2020 I obtained brief history, examined the patient,reviewed the fellow's/Mid level provider/and resident s note and agree with the documented findings and plan of care. Any areas of disagreement are noted on the chart. I agree with the chief complaint, past medical history, past surgical history, allergies, medications, social and family history as documented unless otherwise noted above. Total time for evaluation including obtaining history, chart review, physical examination, 35 minutes Carolyn Joseph MD, [place] Office [phone]. Cell [phone] Stroke, Neurocritical Care & Neurointervention [facility] Stroke [facility] * Samantha Husain MD - 12/08/2020 7:22 AM EST Daily Progress Note Neuro Critical Care Patient Name: Anibal Damon Patient : 1970 Room/Bed: [address] [place] [address] Code Status: Full Code Allergies: No Known Allergies CHIEF COMPLAINT: Headache INTERVAL HISTORY Initial Presentation (Admitted 12/03/2020): The patient is a 50-year-old male with a history of complex regional pain syndrome s/p nerve stimulator who was transferred from [facility] for SAH. Pt notes that he went on a run at approximately 0900, and developed sudden onset worst headache at 0930. Pt went home and took some ibuprofen and took a nap. Pt woke up and his headache was still present, which lead him to taking half a pill on an unknown pain medication. After that did not resolve his pain, he went to [facility] ED for evaluation. CT Head w/o contrast and CTA Neck and Head revealed SAH with no aneurysm. Pt was transferred to [facility] for neuro-endovascular and neuro-critical care evaluation. Pt arrived to [facility], where the CTH and CTA re-demonstrated the SAH with no obvious aneurysm. Pt still notes having his severe non-radiating headache with associated photophobia. Pt denies anyuse of AC/AP. Pt denies any fevers, chills, change in vision, chest pain, shortness of breath, abdominal pain, nausea/vomiting, numbness/tingling or weakness. Admitted to the Neuro ICU for close monitoring. For SAH Dunn&Villarreal: 2, Modified Oliveros: 3 Hospital Course: 12/04/2020: Patient complained of headache overnight, improved with PRN Fentanyl. This morning, patient continues to have a headache but reports improvement and states it is tolerable. Started on Decadron 4mg Q8h IV x2 days and Neurontin 200mg QHS for symptom management. Clinical exam remains stable. Patient is AOx3 without acute focal deficits. Reports baseline right eyelid drooping. Also has chronic numbness in his left upper extremity due to a previous shoulder injury. Underwent diagnostic cerebral angiogram which did not reveal any cerebral aneurysm. Endovascular recommending MRI cervical spine. 12/05/2020: Patient stated his headache was much improved. Patient cannot undergo MRI due to metallic splitter leads for his neurostimulator. Repeat diagnostic angiogram in a week, will continue Keppra till then. Patient transferred to stepdown unit, will remain under neuro ICU care. Patient on general diet and has been able to get out of bed and move around. PT OT consulted and recommend no therapy. 12/06/2020: Patient states his headache is much better. Patient's SBP goals are being met, will continue to monitor. Patient is off Cleviprex infusion and has not required labetalol for blood pressuremanagement. Patient has been tolerating oral diet well, worked with PT/OT, denies any nausea, vomiting. 12/07/2020: Patient had a headache overnight which resolved with Tylenol and magnesium. Patient states he currently has a mild headache but much better than before. Headache overnight was the worst since he has been on the floor but much better than the headache at presentation. Patient denies any new complaints, counseled regarding treatment plan. Patient expresses agreement and understanding. Patient will undergo TCD's today. Last 24h: No acute events overnight. Patient denies any new complaints, states he had a headache overnight, different from before, relieved with Tylenol. TCD's yesterday showed no vasospasm. Patient is stable and comfortable, awaiting repeat DSA on 12/13/2020. CURRENT MEDICATIONS: SCHEDULED MEDICATIONS: magnesium sulfate 1 g Intravenous Q1H methylPREDNISolone 4 mg Oral QAM AC methylPREDNISolone 4 mg Oral Lunch methylPREDNISolone 4 mg Oral Dinner methylPREDNISolone 8 mg Oral Nightly [START ON 12/09/2020] methylPREDNISolone 4 mg Oral Nightly atorvastatin 40 mg Oral Nightly gabapentin 200 mg Oral Nightly lisinopril 10 mg Oral Daily famotidine 20 mg Oral BID sennosides-docusate sodium 2 tablet Oral Daily ondansetron 4 mg Intravenous Once citalopram 10 mg Oral Daily sodium chloride flush 10 mL Intravenous 2 times per day niMODipine 60 mg Oral 6 times per day CONTINUOUS INFUSIONS: PRN MEDICATIONS: acetaminophen, magnesium hydroxide, sodium chloride flush, promethazine OR ondansetron, labetalol VITALS: Temperature Range: Temp: 97 F (36.1 C) Temp Av.8 F (36.6 C) Min: 97 F (36.1 C) Max: 98.3 F (36.8 C) BP Range: Systolic (24hrs), Av , Min:111 , Max:131 Diastolic (24hrs), Av, Min:63, Max:91 Pulse Range: Pulse Av.8 Min: 50 Max: 55 Respiration Range: Resp Av.5 Min: 16 Max: 19 Current Pulse Ox: SpO2: 100 % 24HR Pulse Ox Range: SpO2 Av % Min: 100 % Max: 100 % Patient Vitals for the past 12 hrs: BP Temp Temp src Pulse Resp SpO2 12/08/20 0739 (!) 131/91 97 F (36.1 C) Oral 52 18 100 % 12/08/20 0418 120/89 97.8 F (36.6 C) Oral 12/08/20 0020 111/63 97.8 F (36.6 C) Oral 50 16 Estimated body mass index is 23.63 kg/m as calculated from the following: Height as of this encounter: 5' 9 (1.753 m). Weight as of this encounter: 160 lb (72.6 kg). []<16 Severe malnutrition []16 16.99 Moderate malnutrition []17 18.49 Mild malnutrition [x]18.5 24.9 Normal []25 29.9 Overweight (not obese) []30 34.9 Obese class 1 (Low Risk) []35 39.9 Obese class 2 (Moderate Risk) []?40 Obese class 3 (High Risk) RECENT LABS: Lab Results Component Value Date WBC 6.9 12/08/2020 HGB 13.5 12/08/2020 HCT 41.6 12/08/2020 PLT 312 12/08/2020 CHOL 182 12/04/2020 TRIG 34 12/04/2020 HDL 68 12/04/2020 NA 138 12/08/2020 K 3.9 12/08/2020 CL 103 12/08/2020 CREATININE 0.77 12/08/2020 BUN 12 12/08/2020 CO2 25 12/08/2020 INR 1.0 12/03/2020 LABA1C 5.3 12/04/2020 24 HOUR INTAKE/OUTPUT: No intake or output data in the 24 hours ending 12/08/20 1122 IMAGING: Diagnostic angiogram: No evidence of clear aneurysm, AVM, arterial dissection, stenosis or venoocclusive disease. Labs and Images reviewed with: [] Dr. Samy Groves [x] Dr. Conor Raya [] Dr. Levy Jackman [] There are no new interval images to review. PHYSICAL EXAM CONSTITUTIONAL: Well developed, well nourished, alert and oriented x 3, in no acute distress. GCS 15. Nontoxic. No dysarthria. No aphasia. HEAD: normocephalic, atraumatic EYES: PERRLA, EOMI. ENT: moist mucous membranes NECK: supple, symmetric LUNGS: Equal air entry bilaterally CARDIOVASCULAR: normal s1 / s2, RRR, distal pulses intact ABDOMEN: Soft, no rigidity NEUROLOGIC: Mental Status: A & O x3,awake Cranial Nerves: cranial nerves II-XII are grossly intact Motor Exam: Drift: absent Tone: normal Motor exam is symmetrical 5 out of 5 all extremities bilaterally Sensory: Touch: Right Upper Extremity: normal Left Upper Extremity: normal Right Lower Extremity: normal Left Lower Extremity: normal Deep Tendon Reflexes: Right Bicep: 2+ Left Bicep: 2+ Right Knee: 2+ Left Knee: 2+ Plantar Response: Right: downgoing Left: downgoing Clonus: absent Benjamin's: absent Coordination/Dysmetria: Heel to [place]: Right: normal Left: normal Finger to Nose: Right: normal Left: normal Dysdiadochokinesia: absent Gait: normal DRAINS: [x] There are no drains for Neuro Critical Care to monitor at this time. ASSESSMENT AND PLAN: NEUROLOGIC: - Diffuse, high grade SAH, unclear etiology - POD #3 s/p diagnostic cerebral angiogram which was negative for aneurysm or vascular malformation - Neuro Endovascular following; planning repeat DSA on 12/13/2020. - TCD 12/07/2020: No evidence of vasospasm. - Continue Nimodipine 60mg Q4h - Magnesium goal 3 4. - Keppra discontinued. - Lipitor 40 mg nightly - Medrol 5-day tapering course started. Day 2. - Symptom/pain management; Neurontin 200mg QHS, Decadron 2-day course completed. - Goal SBP 90-140 - Neuro checks per protocol CARDIOVASCULAR: - Goal SBP 90-140 - PRN Labetalol - History of borderline hypertension, not on any meds outpatient - Start Lisinopril 10mg QD - Lipitor 40 mg nightly - Troponin 6, Obtain baseline EKG - Echocardiogram pending: EF 55%, grade 1 LVDD, LA and RA mildly dilated, mild MR. - Continue telemetry PULMONARY: - Maintaining O2 sats on room air - Incentive spirometry RENAL/FLUID/ELECTROLYTE: - Normal renal function - BUN 12/ Creatinine 0.77 - Monitor I&O - Goal Magnesium 3-4. Replace as needed. - Replace electrolytes PRN - Daily BMP GI/NUTRITION: NUTRITION: DIET GENERAL; - Bowel regimen: Senokot-S daily - GI prophylaxis: Pepcid 20 mg twice daily ID: - Afebrile, Tmax 36.7 - No leukocytosis, WBC 6.9 - 12/03 COVID-19 negative - Continue to monitor for fevers - Daily CBC HEME: - H&H 13.5/41.6, stable - Platelets 312 - Daily CBC ENDOCRINE: - Continue to monitor blood glucose, goal <180 - Glucose well controlled OTHER: - UDS +Opiates, received in ED - PT/OT/ST - Code Status: FULL PROPHYLAXIS: Stress ulcer: H2 oneida DVT PROPHYLAXIS: - SCD sleeves - Thigh High - No chemoprophylaxis anticoagulation at this time due to SAH, unclear etiology. DISPOSITION: [] To remain ICU, stepdown status. [x] OK for out of ICU from Neuro Critical Care standpoint, stepdown status, to remain under neuro critical care team. We will continue to follow along. For any changes in exam or patient status please contact Neuro Critical Care. Samantha Husain MD Neuro Critical Care Pager [phone] 12/08/2020 11:22 AM Associated attestation - Conor Raya MD - 12/08/2020 12:26 PM EST I reviewed the resident s note and agree with the documented findings and plan of care. Any areas of disagreement are noted on the chart. I agree with the chief complaint, interval history, 24 hour events, medications and examination as documented unless otherwise noted below. I have personally seen and evaluated the patient and images. I find the patient's history and physical exam are consistent with the Resident documentation. I agree with the care provided, treatment rendered, disposition and follow-up plan. REVIEW OF SYSTEMS CONSTITUTIONAL: negative for fatigue and malaise EYES: negative for double vision and photophobia HEENT: negative for tinnitus and sore throat RESPIRATORY: negative for cough, shortness of breath CARDIOVASCULAR: negative for chest pain, palpitations, or syncope GASTROINTESTINAL: negative for abdominal pain, nausea, vomiting, diarrhea, or constipation GENITOURINARY: negative for incontinence or retention MUSCULOSKELETAL: negative for neck or back pain, negative for extremity pain NEUROLOGICAL: Negative for seizures, headaches, confusion, aphasia, dysarthria, weakness or numbness. PSYCHIATRIC: negative for agitation, hallucination, SI/HI SKIN Negative for spontaneous contusions, rashes, or lesions Neurological examination: Alert and oriented to person, place and time. No focal motor deficits. Perimesencephalic SAH. Angio negative. Cannot have MRI due to stimulator. Repeat angio on December 13, 2020 Continue daily nimotop and TCDs. Echo. Activity as tolerated. Medrol dose pack for headache. I independently reviewed all labs, imaging and EKG tracings I have spent more than 50% of this 25 minute encounter in counseling and/or coordinating care with and for the patient. Patient seen during rounds on 12/08/2020 * Geoff Dodson MD - 12/07/2020 8:00 AM EST Endovascular Neurosurgery Progress Note SUBJECTIVE: No reported events overnight. Last AM pt had recurrence of worse headache, with photophobia and pressure in his ears b/l. There was some word finding difficulty as well. Symptoms are better this am. Review of Systems: CONSTITUTIONAL: negative for fevers, chills, fatigue and malaise EYES: negative for double vision, blurred vision and photophobia HEENT: negative for tinnitus, epistaxis and sore throat RESPIRATORY: negative for cough, shortness of breath, wheezing CARDIOVASCULAR: negative for chest pain, palpitations, syncope, edema GASTROINTESTINAL: negative for nausea, vomiting GENITOURINARY: negative for incontinence MUSCULOSKELETAL: negative for neck or back pain NEUROLOGICAL: Negative for weakness and tingling negative for headaches and dizziness PSYCHIATRIC: negative for anxiety Review of systems otherwise negative. OBJECTIVE: Vitals: 12/07/20 1546 BP: 119/77 Pulse: 54 Resp: 17 Temp: 98.3 F (36.8 C) SpO2: General: Gen: normal habitus, NAD HEENT: NCAT, mucosa moist Cvs: RRR, S1 S2 normal Resp: symmetric unlabored breathing Abd: s/nd/nt Ext: no edema Skin: no lesions seen, warm and dry Neuro: Gen: awake and alert, oriented x3. Lang/speech: no aphasia or dysarthria. Follows commands. CN: PERRL, EOMI, VFF, V1-3 intact, face symmetric, hearing intact, shoulder shrug symmetric, tonguemidline Motor: grossly 5/5 UE and LE b/l Sense: LT intact in all 4 ext. Coord: FTN and HTS intact b/l DTR: deferred Gait: deferred NIH Stroke Scale: 1a Level of consciousness: 0 - alert; keenly responsive 1b. LOC questions: 0 - answers both questions correctly 1c. LOC commands: 0 - performs both tasks correctly 2. Best Gaze: 0 - normal 3. Visual: 0 - no visual loss 4. Facial Palsy: 0 - normal symmetric movement 5a. Motor left arm: 0 - no drift, limb holds 90 (or 45) degrees for full 10 seconds 5b. Motor right arm: 0 - no drift, limb holds 90 (or 45) degrees for full 10 seconds 6a. Motor left le - no drift; leg holds 30 degree position for full 5 seconds 6b Motor right le - no drift; leg holds 30 degree position for full 5 seconds 7. Limb Ataxia: 0 - absent 8. Sensory: 0 - normal; no sensory loss 9. Best Language: 0 - no aphasia, normal 10. Dysarthria: 0 - normal 11. Extinction and Inattention: 0 - no abnormality Total: 0 MRS: 0 LABS: Reviewed. RADIOLOGY: Images were personally reviewed including: DSA 12/04/2020 --No evidence of clear aneurysm, arteriovenous malformation, arterial dissection, stenosis, or veno-occlusive disease. --Normal variants include bilateral P-comm's, right P-comm infundibulum, anterior communicating artery fenestration. ASSESSMENT: 50-year-old male with no past medical history. Admitted 12/03/2020 with perimesencephalic SAH, DSA neg for lesions. H and H 2, mF 3. Ruptured aneurysm cannot be ruled out. Post bleed day 5 Pt is well today. PLAN: --ICU management per NSICU team (nimotop, TCDs) tcd ordered for today 12/07/2020 --mg goal 3-4, last 2 --continue Lipitor 40 --f/u MRI c spine w and wo con (r/o spinal AVM/F) --SBP goal 90-130 --plan for repeat DSA 10d after bleed (12/13/2020) --Upon discharge follow up with Dr. Box in [address] Joseph in 3 months with CTA head with contrast. Case discussed with Dr. joseph attending. Geoff Dodson MD, PhD Stroke, Neurocritical Care & Neurointervention [facility] Stroke Network [facility] Stroke [facility] Electronically signed 12/07/2020 at 6:32 PM Associated attestation - Carolyn Joseph MD - 12/12/2020 4:18 PM EST Stroke and Neurointerventional Attending: Late Entry Note for Service date 12.07.2020 I obtained brief history, examined the patient,reviewed the fellow's/Mid level provider/and resident s note and agree with the documented findings and plan of care. Any areas of disagreement are noted on the chart. I agree with the chief complaint, past medical history, past surgical history, allergies, medications, social and family history as documented unless otherwise noted above. Total time for evaluation including obtaining history, chart review, physical examination, 35 minutes Carolyn Joseph MD, [place] Office [phone]. Cell [phone] Stroke, Neurocritical Care & Neurointervention [facility] Stroke Network [facility] Stroke [facility] * Samantha Husain MD - 12/07/2020 7:52 AM EST Daily Progress Note Neuro Critical Care Patient Name: Anibal Damon Patient : 1970 Room/Bed: [facility]0540-01 Code Status: Full Code Allergies: No Known Allergies CHIEF COMPLAINT: Headache INTERVAL HISTORY Initial Presentation (Admitted 12/03/2020): The patient is a 50-year-old male with a history of complex regional pain syndrome s/p nerve stimulator who was transferred from [facility] for SAH. Pt notes that he went on a run at approximately 0900, and developed sudden onset worst headache at 0930. Pt went home and took some ibuprofen and took a nap. Pt woke up and his headache was still present, which lead him to taking half a pill on an unknown pain medication. After that did not resolve his pain, he went to [facility] ED for evaluation. CT Head w/o contrast and CTA Neck and Head revealed SAH with no aneurysm. Pt was transferred to [facility] for neuro-endovascular and neuro-critical care evaluation. Pt arrived to [facility], where the CTH and CTA re-demonstrated the SAH with no obvious aneurysm. Pt still notes having his severe non-radiating headache with associated photophobia. Pt denies anyuse of AC/AP. Pt denies any fevers, chills, change in vision, chest pain, shortness of breath, abdominal pain, nausea/vomiting, numbness/tingling or weakness. Admitted to the Neuro ICU for close monitoring. For SAH Dunn&Villarreal: 2, Modified Oliveros: 3 Hospital Course: 12/04/2020: Patient complained of headache overnight, improved with PRN Fentanyl. This morning, patient continues to have a headache but reports improvement and states it is tolerable. Started on Decadron 4mg Q8h IV x2 days and Neurontin 200mg QHS for symptom management. Clinical exam remains stable. Patient is AOx3 without acute focal deficits. Reports baseline right eyelid drooping. Also has chronic numbness in his left upper extremity due to a previous shoulder injury. Underwent diagnostic cerebral angiogram which did not reveal any cerebral aneurysm. Endovascular recommending MRI cervical spine. 12/05/2020: Patient stated his headache was much improved. Patient cannot undergo MRI due to metallic splitter leads for his neurostimulator. Repeat diagnostic angiogram in a week, will continue Keppra till then. Patient transferred to stepdown unit, will remain under neuro ICU care. Patient on general diet and has been able to get out of bed and move around. PT OT consulted and recommend no therapy. 12/06/2020: Patient states his headache is much better. Patient's SBP goals are being met, will continue to monitor. Patient is off Cleviprex infusion and has not required labetalol for blood pressuremanagement. Patient has been tolerating oral diet well, worked with PT/OT, denies any nausea, vomiting. Last 24h: No acute events overnight. Patient had a headache overnight which resolved with Tylenol and magnesium. Patient states he currently has a mild headache but much better than before. Headache overnight was the worst since he has been on the floor but much better than the headache at presentation. Patient denies any new complaints, counseled regarding treatment plan. Patient expresses agreement and understanding. Patient will undergo TCD's daily starting today. CURRENT MEDICATIONS: SCHEDULED MEDICATIONS: [START ON 12/08/2020] methylPREDNISolone 4 mg Oral QAM AC [START ON 12/08/2020] methylPREDNISolone 4 mg Oral Lunch [START ON 12/08/2020] methylPREDNISolone 4 mg Oral Dinner [START ON 12/08/2020] methylPREDNISolone 8 mg Oral Nightly [START ON 12/09/2020] methylPREDNISolone 4 mg Oral Nightly atorvastatin 40 mg Oral Nightly levetiracetam 500 mg Intravenous Q12H gabapentin 200 mg Oral Nightly lisinopril 10 mg Oral Daily famotidine 20 mg Oral BID sennosides-docusate sodium 2 tablet Oral Daily ondansetron 4 mg Intravenous Once citalopram 10 mg Oral Daily sodium chloride flush 10 mL Intravenous 2 times per day niMODipine 60 mg Oral 6 times per day CONTINUOUS INFUSIONS: PRN MEDICATIONS: acetaminophen, magnesium hydroxide, sodium chloride flush, promethazine OR ondansetron, labetalol VITALS: Temperature Range: Temp: 97.5 F (36.4 C) Temp Av.8 F (36.6 C) Min: 97.5 F (36.4 C) Max: 98.1 F(36.7 C) BP Range: Systolic (24hrs), Av , Min:111 , Max:142 Diastolic (24hrs), Av, Min:69, Max:86 Pulse Range: Pulse Av.8 Min: 50 Max: 64 Respiration Range: Resp Av.7 Min: 14 Max: 22 Current Pulse Ox: SpO2: 99 % 24HR Pulse Ox Range: SpO2 Av.5 % Min: 99 % Max: 100 % Patient Vitals for the past 12 hrs: BP Temp Temp src Pulse Resp SpO2 12/07/20 1220 131/75 97.5 F (36.4 C) Oral 55 19 12/07/20 0759 127/82 97.5 F (36.4 C) Oral 64 22 12/07/20 0353 111/69 98 F (36.7 C) Oral 50 20 99 % Estimated body mass index is 23.63 kg/m as calculated from the following: Height as of this encounter: 5' 9 (1.753 m). Weight as of this encounter: 160 lb (72.6 kg). []<16 Severe malnutrition []16 16.99 Moderate malnutrition []17 18.49 Mild malnutrition [x]18.5 24.9 Normal []25 29.9 Overweight (not obese) []30 34.9 Obese class 1 (Low Risk) []35 39.9 Obese class 2 (Moderate Risk) []?40 Obese class 3 (High Risk) RECENT LABS: Lab Results Component Value Date WBC 7.6 12/05/2020 HGB 12.5 (L) 12/05/2020 HCT 38.0 (L) 12/05/2020 PLT 275 12/05/2020 CHOL 182 12/04/2020 TRIG 34 12/04/2020 HDL 68 12/04/2020 NA 137 12/05/2020 K 4.1 12/05/2020 CL 109 (H) 12/05/2020 CREATININE 0.77 12/05/2020 BUN 8 12/05/2020 CO2 20 12/05/2020 INR 1.0 12/03/2020 LABA1C 5.3 12/04/2020 24 HOUR INTAKE/OUTPUT: No intake or output data in the 24 hours ending 12/07/20 1415 IMAGING: Diagnostic angiogram: No evidence of clear aneurysm, AVM, arterial dissection, stenosis or venoocclusive disease. Labs and Images reviewed with: [] Dr. Samy Groves [x] Dr. Conor Raya [] Dr. Levy Jackman [] There are no new interval images to review. PHYSICAL EXAM CONSTITUTIONAL: Well developed, well nourished, alert and oriented x 3, in no acute distress. GCS 15. Nontoxic. No dysarthria. No aphasia. HEAD: normocephalic, atraumatic EYES: PERRLA, EOMI. ENT: moist mucous membranes NECK: supple, symmetric LUNGS: Equal air entry bilaterally CARDIOVASCULAR: normal s1 / s2, RRR, distal pulses intact ABDOMEN: Soft, no rigidity NEUROLOGIC: Mental Status: A & O x3,awake Cranial Nerves: cranial nerves II-XII are grossly intact Motor Exam: Drift: absent Tone: normal Motor exam is symmetrical 5 out of 5 all extremities bilaterally Sensory: Touch: Right Upper Extremity: normal Left Upper Extremity: normal Right Lower Extremity: normal Left Lower Extremity: normal Deep Tendon Reflexes: Right Bicep: 2+ Left Bicep: 2+ Right Knee: 2+ Left Knee: 2+ Plantar Response: Right: downgoing Left: downgoing Clonus: absent Benjamin's: absent Coordination/Dysmetria: Heel to [place]: Right: normal Left: normal Finger to Nose: Right: normal Left: normal Dysdiadochokinesia: absent Gait: normal DRAINS: [x] There are no drains for Neuro Critical Care to monitor at this time. ASSESSMENT AND PLAN: NEUROLOGIC: - Diffuse, high grade SAH, unclear etiology - POD #3 s/p diagnostic cerebral angiogram which was negative for aneurysm or vascular malformation - Neuro Endovascular following; planning repeat DSA on 12/13/2020. - Daily TCD's 12/07/2020 onwards - Continue Nimodipine 60mg Q4h - Magnesium goal 3 4. - Keppra 500mg BID empirically until repeat DSA - Lipitor 40 mg nightly - Medrol 5-day tapering course started. Day 1. - Symptom/pain management; Neurontin 200mg QHS, Decadron 2-day course completed. - Goal SBP 90-140 - Neuro checks per protocol CARDIOVASCULAR: - Goal SBP 90-140 - PRN Labetalol - History of borderline hypertension, not on any meds outpatient - Start Lisinopril 10mg QD - Lipitor 40 mg nightly - Troponin 6, Obtain baseline EKG - Echocardiogram pending: EF 55%, grade 1 LVDD, LA and RA mildly dilated, mild MR. - Continue telemetry PULMONARY: - Maintaining O2 sats on room air - Incentive spirometry RENAL/FLUID/ELECTROLYTE: - Normal renal function - BUN 8/ Creatinine 0.77 - Monitor I&O - IVF discontinued. - Goal Magnesium 3-4. Repeat lab pending. - Replace electrolytes PRN - Daily BMP GI/NUTRITION: NUTRITION: DIET GENERAL; - Bowel regimen: Senokot-S daily - GI prophylaxis: Pepcid 20 mg twice daily ID: - Afebrile, Tmax 36.7 - No leukocytosis, WBC 7.6 - 12/03 COVID-19 negative - Continue to monitor for fevers - Daily CBC HEME: - H&H 12.5/38.0, stable - Platelets 275 - Daily CBC ENDOCRINE: - Continue to monitor blood glucose, goal <180 - Glucose well controlled OTHER: - UDS +Opiates, received in ED - PT/OT/ST - Code Status: FULL PROPHYLAXIS: Stress ulcer: H2 oneida DVT PROPHYLAXIS: - SCD sleeves - Thigh High - No chemoprophylaxis anticoagulation at this time due to SAH, unclear etiology. DISPOSITION: [] To remain ICU, stepdown status. [x] OK for out of ICU from Neuro Critical Care standpoint, stepdown status, to remain under neuro critical care team. We will continue to follow along. For any changes in exam or patient status please contact Neuro Critical Care. Samantha Husain MD Neuro Critical Care Pager [phone] 12/07/2020 2:15 PM Associated attestation - Conor Raya MD - 12/07/2020 4:59 PM EST I reviewed the resident s note and agree with the documented findings and plan of care. Any areas of disagreement are noted on the chart. I agree with the chief complaint, interval history, 24 hour events, medications and examination as documented unless otherwise noted below. I have personally seen and evaluated the patient and images. I find the patient's history and physical exam are consistent with the Resident documentation. I agree with the care provided, treatment rendered, disposition and follow-up plan. REVIEW OF SYSTEMS CONSTITUTIONAL: negative for fatigue and malaise EYES: negative for double vision and photophobia HEENT: negative for tinnitus and sore throat RESPIRATORY: negative for cough, shortness of breath CARDIOVASCULAR: negative for chest pain, palpitations, or syncope GASTROINTESTINAL: negative for abdominal pain, nausea, vomiting, diarrhea, or constipation GENITOURINARY: negative for incontinence or retention MUSCULOSKELETAL: negative for neck or back pain, negative for extremity pain NEUROLOGICAL: Negative for seizures, headaches, confusion, aphasia, dysarthria, weakness or numbness. PSYCHIATRIC: negative for agitation, hallucination, SI/HI SKIN Negative for spontaneous contusions, rashes, or lesions Neurological examination: Alert and oriented to person, place and time. No focal motor deficits. Perimesencephalic SAH. Angio negative. Cannot have MRI due to stimulator. Repeat angio in 1 week. Continue daily nimotop and TCDs. Echo. Transfer to stepdown. Activity as tolerated. Medrol dose pack for headache. I independently reviewed all labs, imaging and EKG tracings I have spent more than 50% of this 25 minute encounter in counseling and/or coordinating care with and for the patient. Patient seen during rounds on 12/07/2020 * Sharlene Mckay - 12/06/2020 1:35 PM EST Echo completed in the echo lab * Geoff Dodson MD - 12/06/2020 10:37 AM EST Endovascular Neurosurgery Progress Note SUBJECTIVE: No reported events overnight. Pt reports his headaches are well controlled with prn medication. Review of Systems: CONSTITUTIONAL: negative for fevers, chills, fatigue and malaise EYES: negative for double vision, blurred vision and photophobia HEENT: negative for tinnitus, epistaxis and sore throat RESPIRATORY: negative for cough, shortness of breath, wheezing CARDIOVASCULAR: negative for chest pain, palpitations, syncope, edema GASTROINTESTINAL: negative for nausea, vomiting GENITOURINARY: negative for incontinence MUSCULOSKELETAL: negative for neck or back pain NEUROLOGICAL: Negative for weakness and tingling negative for headaches and dizziness PSYCHIATRIC: negative for anxiety Review of systems otherwise negative. OBJECTIVE: Vitals: 12/06/20 0836 BP: 115/86 Pulse: 53 Resp: 19 Temp: 97.9 F (36.6 C) SpO2: 100% General: Gen: normal habitus, NAD HEENT: NCAT, mucosa moist Cvs: RRR, S1 S2 normal Resp: symmetric unlabored breathing Abd: s/nd/nt Ext: no edema Skin: no lesions seen, warm and dry Neuro: Gen: awake and alert, oriented x3. Lang/speech: no aphasia or dysarthria. Follows commands. CN: PERRL, EOMI, VFF, V1-3 intact, face symmetric, hearing intact, shoulder shrug symmetric, tonguemidline Motor: grossly 5/5 UE and LE b/l Sense: LT intact in all 4 ext. Coord: FTN and HTS intact b/l DTR: deferred Gait: deferred NIH Stroke Scale: 1a Level of consciousness: 0 - alert; keenly responsive 1b. LOC questions: 0 - answers both questions correctly 1c. LOC commands: 0 - performs both tasks correctly 2. Best Gaze: 0 - normal 3. Visual: 0 - no visual loss 4. Facial Palsy: 0 - normal symmetric movement 5a. Motor left arm: 0 - no drift, limb holds 90 (or 45) degrees for full 10 seconds 5b. Motor right arm: 0 - no drift, limb holds 90 (or 45) degrees for full 10 seconds 6a. Motor left le - no drift; leg holds 30 degree position for full 5 seconds 6b Motor right le - no drift; leg holds 30 degree position for full 5 seconds 7. Limb Ataxia: 0 - absent 8. Sensory: 0 - normal; no sensory loss 9. Best Language: 0 - no aphasia, normal 10. Dysarthria: 0 - normal 11. Extinction and Inattention: 0 - no abnormality Total: 0 MRS: 0 LABS: Reviewed. RADIOLOGY: Images were personally reviewed including: DSA 12/04/2020 --No evidence of clear aneurysm, arteriovenous malformation, arterial dissection, stenosis, or veno-occlusive disease. --Normal variants include bilateral P-comm's, right P-comm infundibulum, anterior communicating artery fenestration. ASSESSMENT: 50-year-old male with no past medical history. Admitted 12/03/2020 with perimesencephalic SAH, DSA neg for lesions. H and H 2, mF 3. Ruptured aneurysm cannot be ruled out. Post bleed day 3 Pt is well today. PLAN: --ICU management per NSICU team (nimotop, TCDs) --mg goal 3-4, last 2 --continue Lipitor 40 --f/u MRI c spine w and wo con (r/o spinal AVM/F) --SBP goal 90-130 --plan for repeat DSA 10d after bleed (12/13/2020) --Upon discharge follow up with Dr. Box in [address] Joseph in 3 months with CTA head with contrast. Case discussed with Dr. joseph attending. Geoff Dodson MD, PhD Stroke, Neurocritical Care & Neurointervention [facility] Stroke Network [facility] Stroke Center [facility] [place] Electronically signed 12/06/2020 at 10:37 AM Associated attestation - Carolyn Joseph MD - 12/12/2020 4:18 PM EST Stroke and Neurointerventional Attending: Late Entry Note for Service date 12.06.2020 I obtained brief history, examined the patient,reviewed the fellow's/Mid level provider/and resident s note and agree with the documented findings and plan of care. Any areas of disagreement are noted on the chart. I agree with the chief complaint, past medical history, past surgical history, allergies, medications, social and family history as documented unless otherwise noted above. Total time for evaluation including obtaining history, chart review, physical examination, 35 minutes Carolyn Joseph MD, MS Office [phone]. Cell [phone] Stroke, Neurocritical Care & Neurointervention [facility] St[facility] Stroke [facility] [place] * Samantha Husain MD - 12/06/2020 9:08 AM EST Daily Progress Note Neuro Critical Care Patient Name: Anibal Damon Patient : 1970 Room/Bed: [address] [place] [address] Code Status: Full Code Allergies: No Known Allergies CHIEF COMPLAINT: Headache INTERVAL HISTORY Initial Presentation (Admitted 12/03/2020): The patient is a 50-year-old male with a history of complex regional pain syndrome s/p nerve stimulator who was transferred from [facility] for SAH. Pt notes that he went on a run at approximately 0900, and developed sudden onset worst headache at 0930. Pt went home and took some ibuprofen and took a nap. Pt woke up and his headache was still present, which lead him to taking half a pill on an unknown pain medication. After that did not resolve his pain, he went to [facility] ED for evaluation. CT Head w/o contrast and CTA Neck and Head revealed SAH with no aneurysm. Pt was transferred to [facility] for neuro-endovascular and neuro-critical care evaluation. Pt arrived to [facility], where the CTH and CTA re-demonstrated the SAH with no obvious aneurysm. Pt still notes having his severe non-radiating headache with associated photophobia. Pt denies any use of AC/AP. Pt denies any fevers, chills, change in vision, chest pain, shortness of breath, abdominal pain, nausea/vomiting, numbness/tingling or weakness. Admitted to the Neuro ICU for close monitoring. For SAH Dunn&Villarreal: 2, Modified Oliveros: 3 Hospital Course: 12/04/2020: Patient complained of headache overnight, improved with PRN Fentanyl. This morning, patient continues to have a headache but reports improvement and states it is tolerable. Started on Decadron 4mg Q8h IV x2 days and Neurontin 200mg QHS for symptom management. Clinical exam remains stable. Patient is AOx3 without acute focal deficits. Reports baseline right eyelid drooping. Also has chronic numbness in his left upper extremity due to a previous shoulder injury. Underwent diagnostic cerebral angiogram which did not reveal any cerebral aneurysm. Endovascular recommending MRI cervical spine. 12/05/2020: Patient stated his headache was much improved. Patient cannot undergo MRI due to metallic splitter leads for his neurostimulator. Repeat diagnostic angiogram in a week, will continue Keppra till then. Patient transferred to stepdown unit, will remain under neuro ICU care. Patient on general diet and has been able to get out of bed and move around. PT OT consulted and recommend no therapy. Last 24h: No acute events overnight. Patient denies any new complaints, states his headache is much better. Patient's SBP goals are being met, will continue to monitor. Patient is off Cleviprex infusion and has not required labetalol for blood pressure management. Patient has been tolerating oral diet well, worked with PT/OT, denies any nausea, vomiting. CURRENT MEDICATIONS: SCHEDULED MEDICATIONS: atorvastatin 40 mg Oral Nightly levetiracetam 500 mg Intravenous Q12H gabapentin 200 mg Oral Nightly lisinopril 10 mg Oral Daily famotidine 20 mg Oral BID sennosides-docusate sodium 2 tablet Oral Daily ondansetron 4 mg Intravenous Once citalopram 10 mg Oral Daily sodium chloride flush 10 mL Intravenous 2 times per day niMODipine 60 mg Oral 6 times per day CONTINUOUS INFUSIONS: PRN MEDICATIONS: magnesium hydroxide, sodium chloride flush, acetaminophen, promethazine OR ondansetron, labetalol VITALS: Temperature Range: Temp: 97.9 F (36.6 C) Temp Av F (36.7 C) Min: 97.6 F (36.4 C) Max: 98.3 F (36.8 C) BP Range: Systolic (24hrs), Av , Min:108 , Max:131 Diastolic (24hrs), Av, Min:52, Max:86 Pulse Range: Pulse Av.5 Min: 47 Max: 71 Respiration Range: Resp Av.5 Min: 13 Max: 22 Current Pulse Ox: SpO2: 100 % 24HR Pulse Ox Range: SpO2 Av % Min: 95 % Max: 100 % Patient Vitals for the past 12 hrs: BP Temp Temp src Pulse Resp SpO2 12/06/20 0836 115/86 97.9 F (36.6 C) Oral 53 19 100 % 12/06/20 0347 131/61 97.6 F (36.4 C) Oral (!) 47 14 96 % 12/05/20 2345 108/64 98.1 F (36.7 C) Oral 61 13 95 % Estimated body mass index is 23.63 kg/m as calculated from the following: Height as of this encounter: 5' 9 (1.753 m). Weight as of this encounter: 160 lb (72.6 kg). []<16 Severe malnutrition []16 16.99 Moderate malnutrition []17 18.49 Mild malnutrition [x]18.5 24.9 Normal []25 29.9 Overweight (not obese) []30 34.9 Obese class 1 (Low Risk) []35 39.9 Obese class 2 (Moderate Risk) []?40 Obese class 3 (High Risk) RECENT LABS: Lab Results Component Value Date WBC 7.6 12/05/2020 HGB 12.5 (L) 12/05/2020 HCT 38.0 (L) 12/05/2020 PLT 275 12/05/2020 CHOL 182 12/04/2020 TRIG 34 12/04/2020 HDL 68 12/04/2020 NA 137 12/05/2020 K 4.1 12/05/2020 CL 109 (H) 12/05/2020 CREATININE 0.77 12/05/2020 BUN 8 12/05/2020 CO2 20 12/05/2020 INR 1.0 12/03/2020 LABA1C 5.3 12/04/2020 24 HOUR INTAKE/OUTPUT: No intake or output data in the 24 hours ending 12/06/20 0908 IMAGING: Diagnostic angiogram: No evidence of clear aneurysm, AVM, arterial dissection, stenosis or venoocclusive disease. Labs and Images reviewed with: [] Dr. Samy Groves [x] Dr. Conor Raya [] Dr. Levy Jackman [] There are no new interval images to review. PHYSICAL EXAM CONSTITUTIONAL: Well developed, well nourished, alert and oriented x 3, in no acute distress. GCS 15. Nontoxic. No dysarthria. No aphasia. HEAD: normocephalic, atraumatic EYES: PERRLA, EOMI. ENT: moist mucous membranes NECK: supple, symmetric LUNGS: Equal air entry bilaterally CARDIOVASCULAR: normal s1 / s2, RRR, distal pulses intact ABDOMEN: Soft, no rigidity NEUROLOGIC: Mental Status: A & O x3,awake Cranial Nerves: cranial nerves II-XII are grossly intact Motor Exam: Drift: absent Tone: normal Motor exam is symmetrical 5 out of 5 all extremities bilaterally Sensory: Touch: Right Upper Extremity: normal Left Upper Extremity: normal Right Lower Extremity: normal Left Lower Extremity: normal Deep Tendon Reflexes: Right Bicep: 2+ Left Bicep: 2+ Right Knee: 2+ Left Knee: 2+ Plantar Response: Right: downgoing Left: downgoing Clonus: absent Benjamin's: absent Coordination/Dysmetria: Heel to [place]: Right: normal Left: normal Finger to Nose: Right: normal Left: normal Dysdiadochokinesia: absent Gait: normal DRAINS: [x] There are no drains for Neuro Critical Care to monitor at this time. ASSESSMENT AND PLAN: NEUROLOGIC: - Diffuse, high grade SAH, unclear etiology - POD #2 s/p diagnostic cerebral angiogram which was negative for aneurysm or vascular malformation - Neuro Endovascular following; planning repeat DSA on 12/13/2020. - Plan to start daily TCDs on day 4 - Continue Nimodipine 60mg Q4h - Magnesium goal 3 4. - Keppra 500mg BID empirically until repeat DSA - Lipitor 40 mg nightly - Symptom/pain management; Neurontin 200mg QHS, Decadron 2-day course completed. - Goal SBP 90-140 - Neuro checks per protocol CARDIOVASCULAR: - Goal SBP 90-140 - PRN Labetalol - Off clevidipine infusion - History of borderline hypertension, not on any meds outpatient - Start Lisinopril 10mg QD - Lipitor 40 mg nightly - Troponin 6, Obtain baseline EKG - Echocardiogram pending - Continue telemetry PULMONARY: - Maintaining O2 sats on room air - Incentive spirometry RENAL/FLUID/ELECTROLYTE: - Normal renal functioning - BUN 8/ Creatinine 0.77 - Monitor I&O - IVF discontinued. - Goal Magnesium 3-4. Repeat lab pending. - Replace electrolytes PRN - Daily BMP GI/NUTRITION: NUTRITION: DIET GENERAL; - Bowel regimen: Senokot-S daily - GI prophylaxis: Pepcid 20 mg twice daily ID: - Afebrile, Tmax 36.8 - No leukocytosis, WBC 7.6 - 12/03 COVID-19 negative - Continue to monitor for fevers - Daily CBC HEME: - H&H 12.5/38.0, stable - Platelets 275 - Daily CBC ENDOCRINE: - Continue to monitor blood glucose, goal <180 - Glucose well controlled OTHER: - UDS +Opiates, received in ED - PT/OT/ST - Code Status: FULL PROPHYLAXIS: Stress ulcer: H2 oneida DVT PROPHYLAXIS: - SCD sleeves - Thigh High - No chemoprophylaxis anticoagulation at this time due to SAH, unclear etiology. DISPOSITION: [x] To remain ICU, stepdown status. [] OK for out of ICU from Neuro Critical Care standpoint We will continue to follow along. For any changes in exam or patient status please contact Neuro Critical Care. Samantha Husain MD Neuro Critical Care Pager [phone] 12/06/2020 9:08 AM Associated attestation - Conor Raya MD - 12/06/2020 4:25 PM EST I reviewed the resident s note and agree with the documented findings and plan of care. Any areas of disagreement are noted on the chart. I agree with the chief complaint, interval history, 24 hour events, medications and examination as documented unless otherwise noted below. I have personally seen and evaluated the patient and images. I find the patient's history and physical exam are consistent with the Resident documentation. I agree with the care provided, treatment rendered, disposition and follow-up plan. REVIEW OF SYSTEMS CONSTITUTIONAL: negative for fatigue and malaise EYES: negative for double vision and photophobia HEENT: negative for tinnitus and sore throat RESPIRATORY: negative for cough, shortness of breath CARDIOVASCULAR: negative for chest pain, palpitations, or syncope GASTROINTESTINAL: negative for abdominal pain, nausea, vomiting, diarrhea, or constipation GENITOURINARY: negative for incontinence or retention MUSCULOSKELETAL: negative for neck or back pain, negative for extremity pain NEUROLOGICAL: Negative for seizures, headaches, confusion, aphasia, dysarthria, weakness or numbness. PSYCHIATRIC: negative for agitation, hallucination, SI/HI SKIN Negative for spontaneous contusions, rashes, or lesions Neurological examination: Alert and oriented to person, place and time. No focal motor deficits. Perimesencephalic SAH. Angio negative. Cannot have MRI due to stimulator. Repeat angio in 1 week. Continue daily nimotop and TCDs. Echo. Transfer to stepdown. Activity as tolerated. I independently reviewed all labs, imaging and EKG tracings I have spent more than 50% of this 25 minute encounter in counseling and/or coordinating care with and for the patient. Patient seen during rounds on 12/06/2020 * Lakeshia Hamilton, PT - 12/05/2020 12:04 PM EST Physical Therapy Facility/Department: [address] NEURO Initial Assessment NAME: Anibal Damon : 1970 Date of Service: 12/05/2020 Discharge Recommendations: No further therapy required at discharge. PT Equipment Recommendations Equipment Needed: No Assessment Assessment: Pt ambulated 250ft w/ no AD with supervision, demonstrates stair negotiation independently. Pt demonstrates independence functional mobility at this time. Pt educated in purpose of PT eval, POC, and importance of mobility during admission, verbalizing no concerns in regards to functional mobility upon. D/C skilled PT. Prognosis: Good Decision Making: Low Complexity PT Education: Goals;PT Role;Plan of Care Barriers to Learning: None REQUIRES PT FOLLOW UP: No Activity Tolerance Activity Tolerance: Patient Tolerated treatment well Patient Diagnosis(es): The encounter diagnosis was SAH (subarachnoid hemorrhage) (HCC). has no past medical history on file. has a past surgical history that includes IR NEUROSTIMULATOR PLACEMENT. Restrictions Restrictions/Precautions Required Braces or Orthoses?: No Position Activity Restriction Other position/activity restrictions: SBP 90-130, ART line Vision/Hearing Vision: Within Functional Limits Hearing: Within functional limits Subjective General Patient assessed for rehabilitation services?: Yes Response To Previous Treatment: Not applicable Family / Caregiver Present: No Follows Commands: Within Functional Limits Subjective Subjective: RN and pt in agreement for PT eval; pt supine in bed upon PT arrival, pt very pleasant and cooperative throughout. Pain Screening Patient Currently in Pain: Yes Pain Assessment Pain Assessment: 0-10 Pain Level: 3 Pain Type: Acute pain Pain Location: Head Pain Descriptors: Constant;Discomfort Non-Pharmaceutical Pain Intervention(s): Ambulation/Increased Activity;Repositioned Response to Pain Intervention: Patient Satisfied Multiple Pain Sites: No Vital Signs Patient Currently in Pain: Yes Orientation Orientation Overall Orientation Status: Within Functional Limits Social/Functional History Social/Functional History Lives With: Spouse Type of Home: House(condo) Home Layout: One level Home Access: Stairs to enter with rails Entrance Stairs - Number of Steps: 30 Entrance Stairs - Rails: Both Bathroom Shower/Tub: Tub/Shower unit Bathroom Toilet: Standard Home Equipment: (pt reported no use of DME at baseline) ADL Assistance: Independent Homemaking Assistance: Independent Homemaking Responsibilities: Yes(pt reported splitting IADLs with ) Meal Prep Responsibility: Secondary Laundry Responsibility: Secondary Cleaning Responsibility: Secondary Ambulation Assistance: Independent Transfer Assistance: Independent Active Superintendent Pier: Yes Mode of Transportation: Car, Truck 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 Leisure & Hobbies: working out Additional Comments: pt reported able to assist PRN Cognition Cognition Overall Cognitive Status: WFL Objective Joint Mobility Spine: WFL ROM RLE: WFL ROM LLE: WFL ROM RUE: WFL ROM LUE: WFL Strength RLE R Hip Flexion: 5/5 R Knee Flexion: 5/5 R Knee Extension: 5/5 R Ankle Dorsiflexion: 5/5 R Ankle Plantar flexion: 5/5 Strength LLE L Hip Flexion: 5/5 L Knee Flexion: 5/5 L Knee Extension: 5/5 L Ankle Dorsiflexion: 5/5 L Ankle Plantar Flexion: 5/5 Strength RUE Strength RUE: WFL Comment: See OT assessment- PT/ OT coeval Strength LUE Strength LUE: WFL Comment: See OT assessment- PT/ OT coeval Sensation Overall Sensation Status: Impaired(pt reported L UE tingling which is baseline, but pt reported tingling worse since admission) Bed mobility Supine to Sit: Modified independent Sit to Supine: (Did not assess- pt seated in bedside chair upon selling underwriter's exit) Comment: HOB elevated 30 degrees Transfers Sit to Stand: Supervision Stand to sit: Supervision Comment: Supervision provided for safety Ambulation Ambulation?: Yes Ambulation 1 Surface: level tile Device: No Device Assistance: Supervision(Supervision provided for safety) Gait Deviations: Slow Ashley Distance: 250ft Comments: No LOB noted throughout mobility. Pt reports baseline gait. Stairs/Curb Stairs?: Yes Stairs # Steps : 4 Stairs Height: 6 Rails: Right ascending Device: No Device Assistance: Stand by assistance(SBA provided for safety) Comment: Pt ascend/descend stairs in a reciprocal pattern, demonstrating no LOB throughout. Balance Posture: Good Sitting - Static: Good Sitting - Dynamic: Good Standing - Static: Good Standing - Dynamic: Good Comments: Standing balance assessed w/ RW; pt able to sit EOB with supervision Plan Plan Plan Comment: D/C skilled PT. Pt presents with no skilled PT needs at this time. Safety Devices Type of devices: Left in chair, Call light within reach, Gait belt, Nurse notified Restraints Initially in place: No AM-PAC Score AM-PAC Inpatient Mobility Raw Score : 24 (12/05/20 120) AM-PAC Inpatient T-Scale Score : 61.14 (12/05/201203) Mobility Inpatient CMS 0-100% Score: 0 (12/05/201203) Mobility Inpatient CMS G-Code Modifier : CH (12/05/201203) Therapy Time Individual Concurrent Group Co-treatment Time In 0844 Time Out 0910 Minutes 26 Timed Code Treatment Minutes: 8 Minutes Lakeshia Hamilton PT * Erin Malone OT - 12/05/2020 10:30 AM EST Occupational Therapy Occupational Therapy Initial Assessment Date: 12/05/2020 Patient Name: Anibal Damon : 1970 Date of Service: 12/05/2020 Discharge Recommendations: No occupational therapy recommended at discharge. Assessment Treatment Diagnosis: SAH Prognosis: Good Decision Making: Low Complexity No Skilled OT: Independent with functional mobility;Independent with ADL's;No OT goals identified REQUIRES OT FOLLOW UP: No Activity Tolerance Activity Tolerance: Patient Tolerated treatment well Safety Devices Safety Devices in place: Yes Type of devices: Gait belt;Call light within reach;Left in chair Restraints Initially in place: No Patient Diagnosis(es): The encounter diagnosis was SAH (subarachnoid hemorrhage) (HCC). has no past medical history on file. has a past surgical history that includes IR NEUROSTIMULATOR PLACEMENT. Treatment Diagnosis: SAH Restrictions Restrictions/Precautions Required Braces or Orthoses?: No Position Activity Restriction Other position/activity restrictions: SBP 90-130, ART line Subjective General Patient assessed for rehabilitation services?: Yes Family / Caregiver Present: No Diagnosis: SAH General Comment Comments: RN ok'd for therapy this morning. Pt agreeable to participate in session and cooperative/pleasant throughout Patient Currently in Pain: Yes Pain Assessment Pain Assessment: 0-10 Pain Level: 3 Pain Type: Acute pain Pain Location: Head Pain Descriptors: Headache Non-Pharmaceutical Pain Intervention(s): Ambulation/Increased Activity;Distraction;Therapeutic presence;Repositioned Response to Pain Intervention: Patient Satisfied Social/Functional History Social/Functional History Lives With: Spouse Type of Home: House(condo) Home Layout: One level Home Access: Stairs to enter with rails Entrance Stairs - Number of Steps: 30 Entrance Stairs - Rails: Both Bathroom Shower/Tub: Tub/Shower unit Bathroom Toilet: Standard Home Equipment: (pt reported no use of DME at baseline) ADL Assistance: Independent Homemaking Assistance: Independent Homemaking Responsibilities: Yes(pt reported splitting IADLs with ) Meal Prep Responsibility: Secondary Laundry Responsibility: Secondary Cleaning Responsibility: Secondary Ambulation Assistance: Independent Transfer Assistance: Independent Active Superintendent Pier: Yes Mode of Transportation: Car, Truck 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 Leisure & Hobbies: working out Additional Comments: pt reported able to assist PRN Objective Vision: Within Functional Limits Hearing: Within functional limits Orientation Overall Orientation Status: Within Functional Limits Balance Sitting Balance: Independent(~10 minutes on EOB) Standing Balance: Supervision Standing Balance Time: ~4 minutes Activity: pt completed functional mobility in hallway with PT and stood at sink in bathroom in order to brush teeth Comment: pt with no LOB throughout ADL Feeding: Independent Grooming: Independent UE Bathing: Independent LE Bathing: Independent UE Dressing: Independent LE Dressing: Independent Toileting: Independent Additional Comments: OT facilitated pt in donning gown around back, donning underwear and brushing teeth while standing at sink. Pt exhibited no difficulties completing ADLs throughout session. Tone RUE RUE Tone: Normotonic Tone LUE LUE Tone: Normotonic Coordination Movements Are Fluid And Coordinated: Yes Bed mobility Supine to Sit: Independent Sit to Supine: (ptretired to chair at end of session) Scooting: Independent Transfers Sit to stand: Supervision Stand to sit: Supervision Transfer Comments: for safety only Cognition Overall Cognitive Status: WFL Sensation Overall Sensation Status: Impaired(pt reported L UE tingling which is baseline, but pt reported tingling worse since admission) LUE AROM (degrees) LUE AROM : WFL Left Hand AROM (degrees) Left Hand AROM: WFL RUE AROM (degrees) RUE AROM : WFL Right Hand AROM (degrees) Right Hand AROM: WFL LUE Strength Gross LUE Strength: WFL L Hand General: 5/5 RUE Strength Gross RUE Strength: WFL R Hand General: 5/5 Plan Plan Times per week: D/C OT AM-PAC Score AM-PAC Inpatient Daily Activity Raw Score: 24 (12/05/20 102) AM-PAC Inpatient ADL T-Scale Score : 57.54 (12/05/201024) ADL Inpatient CMS 0-100% Score: 0 (12/05/201024) ADL Inpatient CMS G-Code Modifier : CH (12/05/201024) Therapy Time Individual Concurrent Group Co-treatment Time In 0844 Time Out 0909 Minutes 25 co-eval with PT Timed Code Treatment Minutes: 8 Minutes Erin Malone OTR/L * Merry Sanchez SLP - 12/05/2020 9:40 AM EST Speech Language Pathology Facility/Department: [address] Initial Speech/Language/Cognitive Assessment NAME: Anibal Damon : 1970 ADMISSION DATE: 12/03/2020 ADMITTING DIAGNOSIS: has SAH (subarachnoid hemorrhage) (HCC) on their problem list. DATE ONSET: 12/03/2020 Date of Eval: 12/05/2020 Evaluating Therapist: AMARILIS Penny RECENT RESULTS CT OF HEAD/MRI: Subarachnoid hemorrhage as above. RECOMMENDATIONS: The findings were sent to the Radiology Results Communication Center at 7:34 pm on 12/03/2020to be communicated to a licensed caregiver. 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 Pt notes that he went on a run at approximately 0900, and developed sudden onset worst headache at 0930. Pt went home and took some ibuprofen and took a nap. Pt woke up and his headache was still present, which lead him to taking half a pill on an unknown pain medication. After that did not resolve his pain, he went to [facility] for evaluation. CT Head w/o contrast and CTA Neck and Head revealed SAH with no aneurysm. Pt was transferred to [facility] for neuro-endovascular and neuro-critical care evaluation. Pt arrived to [facility], where the CT H and CTA re-demonstrated the SAH with no obvious aneurysm. Pt still notes having his severe non-radiating headache with associated photophobia. Pt denies any use of AC/AP. Pt denies any fevers, chills, change in vision, chest pain, shortness of breath, abdominal pain, nausea/vomiting, numbness/tingling or weakness. Pain: Pain Assessment Pain Assessment: 0-10 Pain Level: 3 Patient's Stated Pain Goal: 3 Pain Type: Acute pain Pain Location: Head Pain Descriptors: Aching Pain Frequency: Continuous Pain Onset: On-going Non-Pharmaceutical Pain Intervention(s): Emotional support, Environmental changes, Relaxation techniques, Rest RASS Score: Alert and calm Assessment: Pt presents with mild cognitive deficits characterized by impaired recall. Pt. Presents with no dysarthria, no O/M deficits at this time. Patient reports he is functioning at his premorbid cognitive functioning at this time. Education provided. No therapy recommended at discharge. Recommendations: Requires PHYSICAL FITNESS TRAINER Intervention: No Duration/Frequency of Treatment: No need D/C Recommendations: No therapy recommended at discharge. Patient/family involved in developing goals and treatment plan: Yes Subjective: Previous level of function and limitations: Independent General Chart Reviewed: Yes Social/Functional History Lives With: Spouse Vision Vision: Within Functional Limits Hearing Hearing: Within functional limits Objective: Oral/Motor Oral Motor: Within functional limits Motor Speech Motor Speech: Within Functional Limits Cognition: Orientation Overall Orientation Status: Within Normal Limits Attention Attention: Within Functional Limits Memory Memory: Exceptions to WFL Short-term Memory: Mild(recall with distraction 2/3, 2/3, 2/3) Problem Solving Problem Solving: Within Functional Limits Abstract Reasoning Abstract Reasoning: Within Functional Limits Safety/Judgement Safety/Judgement: Within Functional Limits Prognosis: Speech Therapy Prognosis Prognosis: Good Individuals consulted Consulted and agree with results and recommendations: Patient Education: Patient Education: Yes Patient Education Response: Verbalizes understanding Therapy Time: Individual Concurrent Group Co-treatment Time In 922 Time Out 0935 Minutes 12 Evaluation completed by: Jesus Grayson, graduate clinician Cosigned by: AMARILIS Penny 12/05/2020 9:41 AM * Geoff Dodson MD - 12/05/2020 9:18 AM EST Endovascular Neurosurgery Progress Note SUBJECTIVE: No reported events overnight. Pt reports his headaches are well controlled with prn medication. Review of Systems: CONSTITUTIONAL: negative for fevers, chills, fatigue and malaise EYES: negative for double vision, blurred vision and photophobia HEENT: negative for tinnitus, epistaxis and sore throat RESPIRATORY: negative for cough, shortness of breath, wheezing CARDIOVASCULAR: negative for chest pain, palpitations, syncope, edema GASTROINTESTINAL: negative for nausea, vomiting GENITOURINARY: negative for incontinence MUSCULOSKELETAL: negative for neck or back pain NEUROLOGICAL: Negative for weakness and tingling negative for headaches and dizziness PSYCHIATRIC: negative for anxiety Review of systems otherwise negative. OBJECTIVE: Vitals: 12/05/20 0817 BP: Pulse: Resp: Temp: 97.3 F (36.3 C) SpO2: General: Gen: normal habitus, NAD HEENT: NCAT, mucosa moist Cvs: RRR, S1 S2 normal Resp: symmetric unlabored breathing Abd: s/nd/nt Ext: no edema Skin: no lesions seen, warm and dry Neuro: Gen: awake and alert, oriented x3. Lang/speech: no aphasia or dysarthria. Follows commands. CN: PERRL, EOMI, VFF, V1-3 intact, face symmetric, hearing intact, shoulder shrug symmetric, tonguemidline Motor: grossly 5/5 UE and LE b/l Sense: LT intact in all 4 ext. Coord: FTN and HTS intact b/l DTR: deferred Gait: deferred NIH Stroke Scale: 1a Level of consciousness: 0 - alert; keenly responsive 1b. LOC questions: 0 - answers both questions correctly 1c. LOC commands: 0 - performs both tasks correctly 2. Best Gaze: 0 - normal 3. Visual: 0 - no visual loss 4. Facial Palsy: 0 - normal symmetric movement 5a. Motor left arm: 0 - no drift, limb holds 90 (or 45) degrees for full 10 seconds 5b. Motor right arm: 0 - no drift, limb holds 90 (or 45) degrees for full 10 seconds 6a. Motor left le - no drift; leg holds 30 degree position for full 5 seconds 6b Motor right le - no drift; leg holds 30 degree position for full 5 seconds 7. Limb Ataxia: 0 - absent 8. Sensory: 0 - normal; no sensory loss 9. Best Language: 0 - no aphasia, normal 10. Dysarthria: 0 - normal 11. Extinction and Inattention: 0 - no abnormality Total: 0 MRS: 0 LABS: Reviewed. RADIOLOGY: Images were personally reviewed including: DSA 12/04/2020 --No evidence of clear aneurysm, arteriovenous malformation, arterial dissection, stenosis, or veno-occlusive disease. --Normal variants include bilateral P-comm's, right P-comm infundibulum, anterior communicating artery fenestration. ASSESSMENT: 50-year-old male with no past medical history. Admitted 12/03/2020 with perimesencephalic SAH, DSA neg for lesions. H and H 2, mF 3. Ruptured aneurysm cannot be ruled out. Post bleed day 2 Pt is well today. PLAN: --ICU management per NSICU team (nimotop, TCDs) --mg goal 3-4, last 2 --if no contraindication start zocor 80 --f/u MRI s spine w and wo con (r/o spinal AVM/F) --SBP goal 90-130 --plan for repeat DSA 10d after bleed (12/13/2020) --Upon discharge follow up with Dr. Box in [address] Joseph in 3 months with CTA head with contrast. Case discussed with Dr. joseph attending. Geoff Dodson MD, PhD Stroke, Neurocritical Care & Neurointervention [facility] Stroke Network [facility] Stroke [facility] [place] Electronically signed 12/05/2020 at 9:18 AM Associated attestation - Carolyn Joseph MD - 12/12/2020 4:18 PM EST Stroke and Neurointerventional Attending: Late Entry Note for Service date 12.05.2020 I obtained brief history, examined the patient,reviewed the fellow's/Mid level provider/and resident s note and agree with the documented findings and plan of care. Any areas of disagreement are noted on the chart. I agree with the chief complaint, past medical history, past surgical history, allergies, medications, social and family history as documented unless otherwise noted above. Total time for evaluation including obtaining history, chart review, physical examination, 35 minutes Carolyn Joseph MD, MS Office [phone]. Cell [phone] Stroke, Neurocritical Care & Neurointervention [facility] Stroke [facility] [place] * Samantha Husain MD - 12/05/2020 7:43 AM EST Daily Progress Note Neuro Critical Care Patient Name: Anibal Damon Patient : 1970 Room/Bed: 0547/0547-01 Code Status: Full Code Allergies: No Known Allergies CHIEF COMPLAINT: Headache INTERVAL HISTORY Initial Presentation (Admitted 12/03/2020): The patient is a 50-year-old male with a history of complex regional pain syndrome s/p nerve stimulator who was transferred from [facility] for SAH. Pt notes that he went on a run at approximately 0900, and developed sudden onset worst headache at 0930. Pt went home and took some ibuprofen and took a nap. Pt woke up and his headache was still present, which lead him to taking half a pill on an unknown pain medication. After that did not resolve his pain, he went to [facility] ED for evaluation. CT Head w/o contrast and CTA Neck and Head revealed SAH with no aneurysm. Pt was transferred to [facility] for neuro-endovascular and neuro-critical care evaluation. Pt arrived to [facility], where the CTH and CTA re-demonstrated the SAH with no obvious aneurysm. Pt still notes having his severe non-radiating headache with associated photophobia. Pt denies any use of AC/AP. Pt denies any fevers, chills, change in vision, chest pain, shortness of breath, abdominal pain, nausea/vomiting, numbness/tingling or weakness. Admitted to the Neuro ICU for close monitoring. For SAH Dunn&Villarreal: 2, Modified Oliveros: 3 Hospital Course: 12/04/2020: Patient complained of headache overnight, improved with PRN Fentanyl. This morning, patient continues to have a headache but reports improvement and states it is tolerable. Started on Decadron 4mg Q8h IV x2 days and Neurontin 200mg QHS for symptom management. Clinical exam remains stable. Patient is AOx3 without acute focal deficits. Reports baseline right eyelid drooping. Also has chronic numbness in his left upper extremity due to a previous shoulder injury. Underwent diagnostic cerebral angiogram which did not reveal any cerebral aneurysm. Endovascular recommending MRI cervical spine. Last 24h: No acute events overnight. Patient states his headache is much improved, denies any new complaints.Patient cannot undergo MRI due to metallic splitter leads for his neurostimulator. Repeat diagnostic angiogram in a week, will continue Keppra till then. Patient transferred to stepdown unit, will remain under neuro ICU care. Patient on general diet and has been able to get out of bed and move around. PT OT on board. CURRENT MEDICATIONS: SCHEDULED MEDICATIONS: levetiracetam 500 mg Intravenous Q12H gabapentin 200 mg Oral Nightly dexamethasone 4 mg Intravenous Q8H lisinopril 10 mg Oral Daily famotidine 20 mg Oral BID sennosides-docusate sodium 2 tablet Oral Daily ondansetron 4 mg Intravenous Once citalopram 10 mg Oral Daily sodium chloride flush 10 mL Intravenous 2 times per day niMODipine 60 mg Oral 6 times per day CONTINUOUS INFUSIONS: clevidipine Stopped (12/04/20 6353) sodium chloride 75 mL/hr at 12/05/20 9933 PRN MEDICATIONS: magnesium hydroxide, sodium chloride flush, acetaminophen, promethazine OR ondansetron, labetalol VITALS: Temperature Range: Temp: 97.8 F (36.6 C) Temp Av.2 F (36.8 C) Min: 97.3 F (36.3 C) Max: 99.6 F(37.6 C) BP Range: Systolic (24hrs), Av , Min:90 , Max:138 Diastolic (24hrs), Av, Min:48, Max:68 Pulse Range: Pulse Av.4 Min: 55 Max: 77 Respiration Range: Resp Av.6 Min: 13 Max: 30 Current Pulse Ox: SpO2: 99 % 24HR Pulse Ox Range: SpO2 Av.5 % Min: 94 % Max: 100 % Patient Vitals for the past 12 hrs: BP Temp Temp src Pulse Resp SpO2 12/05/20 1230 (!) 117/57 97.8 F (36.6 C) Oral 58 18 99 % 12/05/20 1100 116/68 71 20 97 % 12/05/20 1000 (!) 131/52 65 16 99 % 12/05/20 0800 (!) 107/57 97.3 F (36.3 C) Oral 58 19 100 % 12/05/20 0700 (!) 107/57 57 17 98 % 12/05/20 0600 (!) 94/48 64 13 98 % 12/05/20 0530 57 17 98 % 12/05/20 0500 (!) 102/59 56 16 97 % 12/05/20 0430 55 13 97 % 12/05/20 0400 (!) 90/49 97.7 F (36.5 C) Oral 57 17 96 % Estimated body mass index is 23.63 kg/m as calculated from the following: Height as of this encounter: 5' 9 (1.753 m). Weight as of this encounter: 160 lb (72.6 kg). []<16 Severe malnutrition []16 16.99 Moderate malnutrition []17 18.49 Mild malnutrition [x]18.5 24.9 Normal []25 29.9 Overweight (not obese) []30 34.9 Obese class 1 (Low Risk) []35 39.9 Obese class 2 (Moderate Risk) []?40 Obese class 3 (High Risk) RECENT LABS: Lab Results Component Value Date WBC 7.6 12/05/2020 HGB 12.5 (L) 12/05/2020 HCT 38.0 (L) 12/05/2020 PLT 275 12/05/2020 CHOL 182 12/04/2020 TRIG 34 12/04/2020 HDL 68 12/04/2020 NA 137 12/05/2020 K 4.1 12/05/2020 CL 109 (H) 12/05/2020 CREATININE 0.77 12/05/2020 BUN 8 12/05/2020 CO2 20 12/05/2020 INR 1.0 12/03/2020 LABA1C 5.3 12/04/2020 24 HOUR INTAKE/OUTPUT: Intake/Output Summary (Last 24 hours) at 12/05/2020 1543 Last data filed at 12/05/2020 0400 Gross per 24 hour Intake 990 ml Output 1800 ml Net -810 ml IMAGING: Diagnostic angiogram: No evidence of clear aneurysm, AVM, arterial dissection, stenosis or venoocclusive disease. Labs and Images reviewed with: [] Dr. Samy Groves [x] Dr. Conor Raya [] Dr. Levy Jackman [] There are no new interval images to review. PHYSICAL EXAM CONSTITUTIONAL: Well developed, well nourished, alert and oriented x 3, in no acute distress. GCS 15. Nontoxic. No dysarthria. No aphasia. HEAD: normocephalic, atraumatic EYES: PERRLA, EOMI. ENT: moist mucous membranes NECK: supple, symmetric LUNGS: Equal air entry bilaterally CARDIOVASCULAR: normal s1 / s2, RRR, distal pulses intact ABDOMEN: Soft, no rigidity NEUROLOGIC: Mental Status: A & O x3,awake Cranial Nerves: cranial nerves II-XII are grossly intact Motor Exam: Drift: absent Tone: normal Motor exam is symmetrical 5 out of 5 all extremities bilaterally Sensory: Touch: Right Upper Extremity: normal Left Upper Extremity: normal Right Lower Extremity: normal Left Lower Extremity: normal Deep Tendon Reflexes: Right Bicep: 2+ Left Bicep: 2+ Right Knee: 2+ Left Knee: 2+ Plantar Response: Right: downgoing Left: downgoing Clonus: absent Benjamin's: absent Coordination/Dysmetria: Heel to [place]: Right: normal Left: normal Finger to Nose: Right: normal Left: normal Dysdiadochokinesia: absent Gait: normal DRAINS: [x] There are no drains for Neuro Critical Care to monitor at this time. ASSESSMENT AND PLAN: NEUROLOGIC: - Diffuse, high grade SAH, unclear etiology - POD #1 s/p diagnostic cerebral angiogram which was negative for aneurysm or vascular malformation - Neuro Endovascular following; planning repeat DSA in ~1 week - Plan to start daily TCDs on day 4 - Continue Nimodipine 60mg Q4h - Magnesium goal >2.5 - Keppra 500mg BID empirically until repeat DSA - Symptom/pain management; Neurontin 200mg QHS, Decadron 4mg IV Q8h x2 days - Goal SBP 90-140 - Neuro checks per protocol CARDIOVASCULAR: - Goal SBP 90-140 - PRN Labetalol - Off clevidipine infusion - History of borderline hypertension, not on any meds outpatient - Start Lisinopril 10mg QD - Troponin 6, Obtain baseline EKG - Echocardiogram pending - Continue telemetry PULMONARY: - Maintaining O2 sats on room air - Incentive spirometry RENAL/FLUID/ELECTROLYTE: - Normal renal functioning - BUN 8/ Creatinine 0.77 - Monitor I&O - IVF: Total fluids at 75cc/hr, continue post angio - Goal Magnesium >2.5, mag 2.0, 2 g replacement ordered. - Replace electrolytes PRN - Daily BMP GI/NUTRITION: NUTRITION: DIET GENERAL; - Bowel regimen: Senokot-S daily - GI prophylaxis: Pepcid 20 mg twice daily ID: - Afebrile, Tmax 37.3 - No leukocytosis, WBC 7.6 - 12/03 COVID-19 negative - Continue to monitor for fevers - Daily CBC HEME: - H&H 12.5/38.0, stable - Platelets 275 - Daily CBC ENDOCRINE: - Continue to monitor blood glucose, goal <180 - Glucose well controlled OTHER: - UDS +Opiates, received in ED - PT/OT/ST - Code Status: FULL PROPHYLAXIS: Stress ulcer: H2 oneida DVT PROPHYLAXIS: - SCD sleeves - Thigh High - No chemoprophylaxis anticoagulation at this time due to SAH, unclear etiology. DISPOSITION: [x] To remain ICU, stepdown status. [] OK for out of ICU from Neuro Critical Care standpoint We will continue to follow along. For any changes in exam or patient status please contact Neuro Critical Care. Samantha Husain MD Neuro Critical Care Pager [phone] 12/05/2020 3:43 PM Associated attestation - Conor Raya MD - 12/06/2020 4:56 AM EST I reviewed the resident s note and agree with the documented findings and plan of care. Any areas of disagreement are noted on the chart. I agree with the chief complaint, interval history, 24 hour events, medications and examination as documented unless otherwise noted below. I have personally seen and evaluated the patient and images. I find the patient's history and physical exam are consistent with the Resident documentation. I agree with the care provided, treatment rendered, disposition and follow-up plan. REVIEW OF SYSTEMS CONSTITUTIONAL: negative for fatigue and malaise EYES: negative for double vision and photophobia HEENT: negative for tinnitus and sore throat RESPIRATORY: negative for cough, shortness of breath CARDIOVASCULAR: negative for chest pain, palpitations, or syncope GASTROINTESTINAL: negative for abdominal pain, nausea, vomiting, diarrhea, or constipation GENITOURINARY: negative for incontinence or retention MUSCULOSKELETAL: negative for neck or back pain, negative for extremity pain NEUROLOGICAL: Negative for seizures, headaches, confusion, aphasia, dysarthria, weakness or numbness. PSYCHIATRIC: negative for agitation, hallucination, SI/HI SKIN Negative for spontaneous contusions, rashes, or lesions Neurological examination: Alert and oriented to person, place and time. No focal motor deficits. Perimesencephalic SAH. Angio negative. Cannot have MRI due to stimulator. Repeat angio in 1 week. Continue daily nimotop and TCDs. Echo. Transfer to stepdown. I independently reviewed all labs, imaging and EKG tracings I have spent more than 50% of this 35 minute encounter in counseling and/or coordinating care with and for the patient. Patient seen during rounds on 12/05/2020 * Alessandra Adler RN - 12/04/2020 2:00 PM EST 10 ml air removed from safeguard. * Alessandra Adler RN - 12/04/2020 1:00 PM EST 10 ml air removed from safeguard * Alessandra Adler RN - 12/04/2020 12:00 PM EST 10 ml air removed from safeguard. * Jonathan Garland DO - 12/04/2020 11:17 AM EST DATE: 12/04/20 AWAKE & FOLLOWING COMMANDS: [] No [x] Yes INTUBATED: [x] No [] Yes SEDATION/ANALGESIA: [] Propofol gtt [] Precedex gtt [] Versed gtt [] No Sedation or Not Applicable Pain medications: Tylenol PRN VASOPRESSORS: [x] No [] Yes [] Levophed [] Dopamine [] Vasopressin [] Dobutamine [] Phenylephrine [] Epinephrine On cardene overnight CENTRAL LINES: [x] No [] Yes: DEL REAL CATHETER: [x] No [] Yes: FEEDING: Able to take PO? [] No: [] NG/OG [] PEG [x] NPO for: [] Tube Feeds [] Yes: Diet: DVT Prophylaxis: [] Lovenox [] Heparin subQ [] Anticoagulation [x] Contraindicated secondary to: SAH Stress Ulcer Prophylaxis: [] PPI [] H2 Receptor Oneida [x] Not indicated Blood Glucose: [x] Blood glucose <180 consistently [] Insulin sliding scale [] Home Medications addressed HOB >30 Degrees: [x] Yes [] No, contraindicated due to * Alessandra Adler RN - 12/04/2020 11:00 AM EST 10 ml air removed from safeguard * Vilma Hillman, AMARILIS - 12/04/2020 10:21 AM EST Speech Language Pathology [facility] Speech Language Pathology Date: 12/04/2020 Patient Name: Anibal Damon Date of : 1970 AGE: 50 y.o. Patient Not Available for Speech Therapy Due to: [] Testing [] Hemodialysis [] Cancelled by RN [x] Surgery: diagnostic angio [] Intubation/Sedation/Pain Medication [] Medical instability [] Other: Next scheduled treatment: 12/05 Completed by: Vilma Hillman MShana [facility] * Des Tellez, OT - 12/04/2020 9:30 AM EST Occupational Therapy Occupational Therapy Not Seen Note DATE: 12/04/2020 Name: Anibal Damon : 1970 Patient not available for Occupational Therapy due to: Surgery/Procedure: Pt OOR at angio upon arrival, will have to lie flat after for 3 hrs. Next Scheduled Treatment: Attempt on 12/05 as appropriate. * Lakeshia Hamilton, PT - 12/04/2020 8:35 AM EST Physical Therapy DATE: 12/04/2020 NAME: Anibal Damon : 1970 Patient not seen this date for Physical Therapy due to: [] Blood transfusion in progress [] Hemodialysis [] Patient Declined [] Spine Precautions [] Strict Bedrest [x] Surgery/ Procedure: plan for IR today. PT will check back following intervention on 12/05/20. [] Testing [] Other [] PT is being discontinued at this time. Patient independent. No further needs. [] PT is being discontinued at this time due to declining physical/ medical status. Therapy is not appropriate at this time. Lakeshia Hamilton PT * Hermes Box MD - 12/04/2020 8:21 AM EST ENDOVASCULAR NEUROSURGERY PROGRESS NOTE 12/04/2020 8:22 AM Subjective: Admit Date: 12/03/2020 PCP: No primary care provider on file. He is doing good this morning. No headache. Objective: Vitals: BP 131/65 Pulse 71 Temp 98.7 F (37.1 C) (Oral) Resp 21 Ht 5' 9 (1.753 m) Wt 160 lb (72.6 kg) SpO2 97% BMI 23.63 kg/m General appearance: Lying in bed in neuro ICU, NAD. HEENT: Atraumatic. Neck: Neck is supple. Lungs: No respiratory distress noted. Heart: normal sinus rhythm on tele.. Abdomen: Soft nontender. Extremities: No lower limb edema noted. Groin: Groin looks clean, no hematoma noted. Neurologic: He is awake, following simple commands appropriately, able to name simple objects, intact comprehension, no dysarthria noted. CN: Has intact extraocular muscles movements, no facial droop noted, intact sensation on the face on trigeminal distribution bilaterally. MOTOR: Has good strength in both upper and lower extremities, moving both upper and lower extremities against gravity with no drift. SENSORY: Intact sensation to simple touch bilaterally in both upper and lower extremities. Medications and labs: Scheduled Meds: levetiracetam 500 mg Intravenous Q12H magnesium sulfate 2 g Intravenous Once ondansetron 4 mg Intravenous Once citalopram 10 mg Oral Daily sodium chloride flush 10 mL Intravenous 2 times per day niMODipine 60 mg Oral 6 times per day atorvastatin 80 mg Oral Nightly Continuous Infusions: niCARdipine 15 mg/hr (12/04/20 0637) clevidipine 4 mg/hr (12/04/20 0752) CBC: Recent Labs 12/03/20194912/04/20 0355 WBC 8.4 6.8 HGB 14.7 13.3 PLT 323 264 BMP: Recent Labs 12/03/20 19012/03/20194912/04/20 0355 NA -- 136 136 K -- 3.9 3.8 CL -- 104 104 CO2 -- 22 20 BUN -- 12 9 CREATININE 0.93 0.80 0.72 GLUCOSE -- 100* 112* Hepatic: No results for input(s): AST, ALT, ALB, BILITOT, ALKPHOS in the last 72 hours. Troponin: No results for input(s): TROPONINI in the last 72 hours. BNP: No results for input(s): BNP in the last 72 hours. Lipids: Recent Labs 12/04/20 0355 CHOL 182 HDL 68 INR: Recent Labs 12/03/201949 INR 1.0 Assessment and Recommendations: This is a 50-year-old male with no past medical history. He is not on medications at home. He presented with acute onset thunderclap headache and found to have perimesencephalic pattern subarachnoid hemorrhage on CT head. CT head and neck with no underlying aneurysm or vascular pathology noted. He is undergoing angiogram today for further evaluation. Admitted to neuro ICU and was treated with unsecured ruptured aneurysm. Cerebral angiogram with IV moderate sedation. Risks and benefits discussed including but not limited to bruising, stroke, sah, , retroperitoneal hematoma, femoral pseudoaneurysm, lower ext and renal as well as peripheral vasc compromise discussed - informed consent obtained at bedside from thepatient. Modified Arango grade at 3. Dunn and Villarreal scale at 2. PLAN: -Keep systolic blood pressure between 85 and 120. On Cardene drip. -The patient was loaded with 1 g of Keppra. Continue 500 mg -magnesium at goal between 3-4. -Nimotop 60 mg every 6 hours. -Zocor 80 mg. -TCD's. -Neuro ICU care Discussed with Dr Opal Box MD Stroke, Neurocritical Care & Neurointervention [facility] Electronically signed 12/04/2020 at 8:22 AM Associated attestation - Carolyn Joseph MD - 12/12/2020 4:17 PM EST Stroke and Neurointerventional Attending: Late Entry Note for Service date 12.04.2020 I obtained brief history, examined the patient,reviewed the fellow's/Mid level provider/and resident s note and agree with the documented findings and plan of care. Any areas of disagreement are noted on the chart. I agree with the chief complaint, past medical history, past surgical history, allergies, medications, social and family history as documented unless otherwise noted above. Total time for evaluation including obtaining history, chart review, physical examination, 35 minutes Carolyn Joseph MD, [place] Office [phone]. Cell [phone] Stroke, Neurocritical Care & Neurointervention [facility] * Xochitl Reeves, BIB - 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 - 12/04/2020 8:10 AM EST Daily Progress Note Neuro Critical Care Patient Name: Anibal Damon Patient : 1970 Room/Bed: [address] [place], [place] [id number] Code Status: FULL Allergies: No Known Allergies CHIEF COMPLAINT: Headache INTERVAL HISTORY Initial Presentation (Admitted ): The patient is a 50-year-old male with a history of complex regional pain syndrome s/p nerve stimulator who was transferred from [facility] for SAH. Pt notes that he went on a run at approximately 0900, and developed sudden onset worst headache at 0930. Pt went home and took some ibuprofen and took a nap. Pt woke up and his headache was still present, which lead him to taking half a pill on an unknown pain medication. After that did not resolve his pain, he went to [facility] ED for evaluation. CT Head w/o contrast and CTA Neck and Head revealed SAH with no aneurysm. Pt was transferred to [facility] for neuro-endovascular and neuro-critical care evaluation. Pt arrived to [facility], where the CTH and CTA re-demonstrated the SAH with no obvious aneurysm. Pt still notes having his severe non-radiating headache with associated photophobia. Pt denies anyuse of AC/AP. Pt denies any fevers, chills, change in vision, chest pain, shortness of breath, abdominal pain, nausea/vomiting, numbness/tingling or weakness. Admitted to the Neuro ICU for close monitoring. For SAH Dunn&Villarreal: 2, Modified Oliveros: 3 Last 24h: Patient complained of headache overnight, improved with PRN Fentanyl. This morning, patient continues to have a headache but reports improvement and states it is tolerable. Started on Decadron 4mg Q8h IV x2 days and Neurontin 200mg QHS for symptom management. Clinical exam remains stable. Patient is AOx3 without acute focal deficits. Reports baseline right eyelid drooping. Also has chronic numbness in his left upper extremity due to a previous shoulder injury. Underwent diagnostic cerebral angiogram which did not reveal any cerebral aneurysm. Endovascular recommending MRI cervical spine. CURRENT MEDICATIONS: SCHEDULED MEDICATIONS: hydrALAZINE 10 mg Intravenous Once levetiracetam 500 mg Intravenous Q12H magnesium sulfate 2 g Intravenous Once ondansetron 4 mg Intravenous Once citalopram 10 mg Oral Daily sodium chloride flush 10 mL Intravenous 2 times per day niMODipine 60 mg Oral 6 times per day atorvastatin 80 mg Oral Nightly CONTINUOUS INFUSIONS: niCARdipine 15 mg/hr (12/04/20 0637) clevidipine 4 mg/hr (12/04/20 0752) PRN MEDICATIONS: magnesium hydroxide, sodium chloride flush, acetaminophen, promethazine OR ondansetron, labetalol VITALS: Temperature Range: Temp: 98.7 F (37.1 C) Temp Av.4 F (36.9 C) Min: 98.2 F (36.8 C) Max: 98.7 F(37.1 C) BP Range: Systolic (24hrs), Av , Min:97 , Max:156 Diastolic (24hrs), Av, Min:55, Max:90 Pulse Range: Pulse Av Min: 60 Max: 79 Respiration Range: Resp Av.6 Min: 0 Max: 33 Current Pulse Ox: SpO2: 97 % 24HR Pulse Ox Range: SpO2 Av.2 % Min: 92 % Max: 100 % Patient Vitals for the past 12 hrs: BP Temp Temp src Pulse Resp SpO2 12/04/20 0751 98.7 F (37.1 C) Oral 12/04/20 0702 131/65 71 21 97 % 12/04/20 0647 (!) 113/55 63 12 97 % 12/04/20 0632 (!) 104/57 62 12 97 % 12/04/20 0617 108/62 63 12 94 % 12/04/20 0602 61 11 92 % 12/04/20 0600 97/61 60 11 92 % 12/04/20 0547 (!) 123/59 79 (!) 33 99 % 12/04/20 0517 124/71 76 16 98 % 12/04/20 0502 123/63 73 14 98 % 12/04/20 0447 120/61 66 12 97 % 12/04/20 0432 123/64 66 13 97 % 12/04/20 0417 125/63 69 11 96 % 12/04/20 0402 118/62 98.2 F (36.8 C) 67 13 96 % 12/04/20 0347 120/67 68 12 95 % 12/04/20 0332 120/61 69 11 94 % 12/04/20 0317 (!) 120/58 75 16 98 % 12/04/20 0302 120/67 66 13 96 % 12/04/20 0247 128/64 65 14 96 % 12/04/20 0232 120/69 65 12 95 % 12/04/20 0217 122/69 64 13 100 % 12/04/20 0202 128/72 66 14 96 % 12/04/20 0147 112/64 63 12 97 % 12/04/20 0132 123/68 63 22 97 % 12/04/20 0117 114/66 66 29 96 % 12/04/20 0100 119/67 66 14 98 % 12/04/20 0017 133/77 67 19 98 % 12/04/20 0002 132/65 98.2 F (36.8 C) 70 22 99 % 12/03/20 2311 132/73 78 13 95 % 12/03/20 2300 132/71 73 12 94 % 12/03/20 2250 132/72 74 12 94 % 12/03/20 2241 131/76 74 13 94 % 12/03/20 2221 123/70 74 14 95 % 12/03/20 2212 139/74 73 14 95 % 12/03/20 2201 130/77 78 15 96 % 12/03/20 2151 127/69 75 13 96 % 12/03/202130 127/74 74 16 95 % 12/03/202120 129/73 73 15 95 % Estimated body mass index is 23.63 kg/m as calculated from the following: Height as of this encounter: 5' 9 (1.753 m). Weight as of this encounter: 160 lb (72.6 kg). []<16 Severe malnutrition []16 16.99 Moderate malnutrition []17 18.49 Mild malnutrition []18.5 24.9 Normal []25 29.9 Overweight (not obese) []30 34.9 Obese class 1 (Low Risk) []35 39.9 Obese class 2 (Moderate Risk) []?40 Obese class 3 (High Risk) RECENT LABS: Lab Results Component Value Date WBC 6.8 12/04/2020 HGB 13.3 12/04/2020 HCT 42.0 12/04/2020 PLT 264 12/04/2020 CHOL 182 12/04/2020 TRIG 34 12/04/2020 HDL 68 12/04/2020 NA 136 12/04/2020 K 3.8 12/04/2020 CL 104 12/04/2020 CREATININE 0.72 12/04/2020 BUN 9 12/04/2020 CO2 20 12/04/2020 INR 1.0 12/03/2020 24 HOUR INTAKE/OUTPUT: Intake/Output Summary (Last 24 hours) at 12/04/2020 0810 Last data filed at 12/04/2020 0400 Gross per 24 hour Intake 1032 ml Output 100 ml Net 932 ml IMAGING: Ct Head Wo Contrast Addendum Date: 12/03/2020 ADDENDUM: Discussed with Dr. Arias at 7:46 p.m. Result Date: 12/03/2020 Subarachnoid hemorrhage as above. RECOMMENDATIONS: The findings were sent to the Radiology Results Communication Center at 7:34 pm on 12/03/2020to be communicated to a licensed caregiver. Cta Head Neck W Contrast Result Date: 12/03/2020 60% stenosis proximal right internal carotid artery. Less than 50% stenosis proximal left internal carotid artery. Moderate stenosis origin of the vertebral arteries bilaterally.. Labs and Images reviewed with: [x] Dr. Samy Groves [] Dr. Conor Raya [] Dr. Levy Jackman [] There are no new interval images to review. PHYSICAL EXAM CONSTITUTIONAL: Well developed, well nourished. Alert and oriented x 3, in no acute distress. GCS 15. Nontoxic. No dysarthria. No aphasia. HEAD: normocephalic, atraumatic EYES: PERRLA, EOMI. Right eyelid ptsosis. ENT: moist mucous membranes NECK: supple, symmetric LUNGS: Equal air entry bilaterally, clear CARDIOVASCULAR: normal s1 / s2, RRR, distal pulses intact ABDOMEN: Soft, no rigidity, normal bowel sounds NEUROLOGIC: Mental Status: A & O x3,awake Cranial Nerves: cranial nerves II-XII are grossly intact Motor Exam: Drift: absent Tone: normal Motor exam is symmetrical 5 out of 5 all extremities bilaterally Sensory: Touch: Right Upper Extremity: normal Left Upper Extremity: Numbness at baseline Right Lower Extremity: normal Left Lower Extremity: normal Coordination/Dysmetria: Heel to Alston: Right: normal Left: normal Finger to Nose: Right: normal Left: normal NIH Stroke Scale Total (if not done complete detailed one below): 1a. Level of consciousness: 0 - alert; keenly responsive 1b. Level of consciousness questions: 0 - answers both questions correctly 1c. Level of consciousness questions: 0 - performs both tasks correctly 2. Best Gaze: 0 - normal 3. Visual: 0 - no visual loss 4. Facial Palsy: 0 - normal symmetric movement 5a. Motor left arm: 0 - no drift, limb holds 90 (or 45) degrees for full 10 seconds 5b. Motor right arm: 0 - no drift, limb holds 90 (or 45) degrees for full 10 seconds 6a. Motor left le - no drift; leg holds 30 degree position for full 5 seconds 6b. Motor right le - no drift; leg holds 30 degree position for full 5 seconds 7. Limb Ataxia: 0 - absent 8. Sensory: 0 - normal; no sensory loss 9. Best Language: 0 - no aphasia, normal 10. Dysarthria: 0 - normal 11. Extinction and Inattention: 0 - no abnormality TOTAL: 0 DRAINS: [x] There are no drains for Neuro Critical Care to monitor at this time. ASSESSMENT AND PLAN: The patient is a 50 yo male with a history of complex regional pain syndrome affecting his left upper extremity with nerve stimulator who was admitted to the Neuro ICU for management of an acute SAH.H&H 2, MF 3. Unclear etiology of SAH, negative cerebral angiogram 12/04. NEUROLOGIC: - Diffuse, high grade SAH, unclear etiology - POD #0 s/p diagnostic cerebral angiogram which was negative for aneurysm or vascular malformation - Neuro Endovascular following; planning repeat DSA in ~1 week - Plan to start daily TCDs on day 4 - Continue Nimodipine 60mg Q4h - Magnesium goal >2.5 - Keppra 500mg BID empirically until repeat DSA - MRI Cervical spine with/without if able to obtain with device - Symptom/pain management; Neurontin 200mg QHS, Decadron 4mg IV Q8h x2 days - Goal SBP 90-130 - Neuro checks per protocol CARDIOVASCULAR: - Goal SBP 90-130 - PRN Labetalol - Wean Clevidipine infusion as able - History of borderline hypertension, not on any meds outpatient - Start Lisinopril 10mg QD - Troponin 6, Obtain baseline EKG - Echocardiogram - Continue telemetry PULMONARY: - Maintaining O2 sats on room air - Incentive spirometry RENAL/FLUID/ELECTROLYTE: - Normal renal functioning - BUN 9/ Creatinine 0.72 - Monitor I&O - IVF: Total fluids at 75cc/hr, continue post angio - Goal Magnesium >2.5; give total 4g Magnesium sulfate for Mag 1.9 - Replace electrolytes PRN - Daily BMP GI/NUTRITION: NUTRITION: Diet NPO Effective Now - Resume General diet post angio - Bowel regimen: Senokot-S daily, Milk of Mag PRN - GI prophylaxis: Pepcid with steroid course ID: - Afebrile, Tmax 37.1 - No leukocytosis, WBC 6.8 - 12/03 COVID-19 negative - Continue to monitor for fevers - Daily CBC HEME: - H&H 13.3/42.0, stable - Platelets 264 - Daily CBC ENDOCRINE: - Continue to monitor blood glucose, goal <180 - Glucose well controlled OTHER: - UDS +Opiates, received in ED - PT/OT/ST - Code Status: FULL PROPHYLAXIS: Stress ulcer: H2 oneida DVT PROPHYLAXIS: - SCD sleeves - Thigh High - No chemoprophylaxis anticoagulation at this time due to SAH, unclear etiology. DISPOSITION: [x] To remain ICU for close neurological monitoring. We will continue to follow along. For any changes in exam or patient status please contact Neuro Critical Care. Xochitl Reeves APRN - [facility] Neuro Critical Care Pager [phone] 12/04/2020 8:10 AM Associated attestation - Samy Groves MD - 12/04/2020 6:02 PM EST Neuro critical care Patient seen and staffed on 12/04/2020. H&P from overnight attested. Please refer to H&P forattestation. Nonaneurysmal subarachnoid hemorrhage management in neuro ICU Bacilio Groves MD documented in this encounter Assessments Diagnosis SAH (subarachnoid hemorrhage) (HCC)- Primary Subarachnoid hemorrhage Non-aneurysmal perimesencephalic subarachnoid hemorrhage (HCC) Diagnosis Sciatica of left side Sciatica Advance Directives No Advanced Directives Records FoundLatest Code Status on File Code Status Date Activated Date Inactivated Comments Full Code 12/04/2020 9:41 AM Full Code 12/03/2020 11:54 PM 12/04/2020 9:41 AM Latest Code Status on File Code Status Date Activated Date Inactivated Comments Full Code 12/04/2020 9:41 AM 12/13/2020 8:34 PM Latest Code Status on File Code Status Date Activated Date Inactivated Comments Full Code 12/04/2020 9:41 AM 12/13/2020 8:34 PM Full Code 12/03/2020 11:54 PM 12/04/2020 9:41 AM Latest Code Status on File Code Status Date Activated Date Inactivated Comments Full Code 12/11/2022 3:17 PM 12/13/2022 4:20 PM Code Status History Code Status Date Activated Date Inactivated Comments Full Code 12/04/2020 9:41 AM 12/13/2020 8:34 PM Full Code 12/03/2020 11:54 PM 12/04/2020 9:41 AM Summary Purpose Family History No Family History Records FoundNo Family History Records FoundNo Family History Records FoundNo Family History Records Found Additional Source Comments Reason for Visit (unrecogniz ed section and content) Reason Comments Headache started 10am while r unning at the gym Status Reason Specialty Diagnoses / Procedures Referre d By Contact Referred To Contact Diagnoses SAH (subarachnoid hemorrhage) (HCC) SAH (subarachnoid hemorrhage) (HCC) Samy Groves MD [address] [id number] [facility] Status Reason Specialty Diagnoses / Procedures Referre d By Contact Referred To Contact Closed Radiology Diagnoses Sciatica of left side Procedures CT LUMBAR SPINE WO CONTRAST Geoff Dodson MD [facility] [place], [address] [place] [address], [address] [place] [address] Status Reason Specialty Diagnoses / Procedures Referre d By Contact Referred To Contact Closed Radiology Diagnoses SAH (subarachnoid hemorrhage) (HCC) Procedures CTA HEAD W CONTRAST [id number] [place] [address] [place] [id number] Status Reason Specialty Diagnoses / Procedures Referre d By Contact Referred To Contact Closed Radiology Diagnoses SAH (subarachnoid hemorrhage) (HCC) Procedures CTA HEAD W CONTRAST [id number] case # [id number] Carolyn Joseph MD [address] [facility] [address] [address] Specialty Diagnoses / Procedures Referred By Contac t Referred To Contact Diagnoses Complex regional pain syndrome type 1 of left upper extremity COMPLEX REGIONAL PAIN SYNDROME TYPE 1 OF LEFT UPPER EXTREMITY Procedures GA OFFICE/OUTPT VISIT,PROCEDURE ONLY GA REVISION SPINAL NEUROSTIM ELECTRODE PLATE/PADDLE, INCL FLUORO EXPLANTATION OF SPINAL CORD STIMULATOR (REGULAR TABLE, PRONE) Nidia Archer DO [address] [facility] [address] [address] [facility] [address] [place] [address] Referral ID Status Reason Start Date Expiration Date Visits Re quested Visits Authorized [id number] 1 1 Specialty Diagnoses / Procedures Referred By Contac t Referred To Contact Radiology Diagnoses SAH (subarachnoid hemorrhage) (HCC) I60.9 (ICD-10-CM) - SAH (subarachnoid hemorrhage) (HCC) Procedures MRI BRAIN W WO CONTRAST GA MRI BRAIN COMBO [id number] - GA MRI BRAIN COMBO Carolyn Joseph MD [address] [facility] [facility] [address] [address] Referral ID Status Reason Start Date Expiration Date Visits Re quested Visits Authorized [id number] Closed 08/30/2022 07/02/2023 1 1 Specialty Diagnoses / Procedures Referred By Contac t Referred To Contact Radiology Diagnoses Complex regional pain syndrome type 1 of left upper extremity Failure of spinal cord stimulator, subsequent encounter G90.512 (ICD-10-CM) - Complex regional pain syndrome type 1 of left upper extremity Procedures MRI CERVICAL SPINE WO CONTRAST GA MRI, CERV SPINE [id number] - GA MRI, CERV SPINE Sukhjinder Musa W, ADJUNCT 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 [address] [facility] [address] Referral ID Status Reason Start Date Expiration Date Visits Re quested Visits Authorized [id number] Closed 08/30/2022 08/24/2023 1 1 Ordered Prescriptions (unrec ognized section and content) Prescription Sig Dispensed Refills Start Date End Da te niMODipine (NIMOTOP) 30 MG capsule Take 2 capsules by mouth every 4 hours for 11 days 132 capsule 0 12/13/2020 12/24/2020 atorvastatin (LIPITOR) 20 MG tablet Take 1 tablet by mouth daily 30 tablet 3 12/13/2020 gabapentin (NEURONTIN) 300 MG capsule Take 1 capsule by mouth nightly for 30 days. 30 capsule 0 12/13/2020 01/12/2021 oxyCODONE (ROXICODONE) 5 MG immediate release tabletIndications:SAH (subarachnoid hemorrhage) (HCC) Take 1 tablet by mouth every 8 hours as needed for Pain for up to 5 days. 5 tablet 0 12/13/2020 12/18/2020 lisinopril (PRINIVIL;ZESTRIL) 10 MG tablet Take 1 tablet by mouth daily 30 tablet 3 12/13/2020 Prescription Sig Dispensed Refills Start Date End Da te traMADol (ULTRAM) 50 MG tabletIndications:Acute post-operative pain Take 1 tablet by mouth every 6 hours as needed for Pain for up to 7 days. Intended supply: 3 days. Take lowest dose possible to manage pain 18 tablet 0 07/19/2022 07/26/2022 cephALEXin (KEFLEX) 500 MG capsule Take 1 capsule by mouth 3 times daily for 3 days 9 capsule 0 07/19/2022 07/22/2022 HYDROcodone-acetaminophe n (NORCO) 5-325 MG per tabletIndications:Acute post-operative pain Take 1 tablet by mouth every 6 hours as needed for Pain for up to 7 days. Intended supply: 7 days. Take lowest dose possible to manage pain 28 tablet 0 07/19/2022 07/19/2022 (unrecognized sect ion and content) No Status Records FoundNo Status Records FoundNo Status Records FoundNo Status Records Found INFORMATION SOURCE (unrecogn ized section and content) DATE CREATED AUTHOR 09/03/2021 [facility] DATE CREATED AUTHOR AUTHOR'S ORGANIZ ATION 03/31/2023 [facility] DATE CREATED AUTHOR AUTHOR'S ORGANIZ ATION 03/24/2024 [facility] DATE CREATED AUTHOR AUTHOR'S ORGANIZ ATION 04/02/2024 [facility] Care Teams (unrecognized sec tion and content) Cable Splicer Assistant Relationship Specialty [place] [address] [place], [place] [id number] PCP - General Physician [employer]hand 05/22/21 Cable Splicer Assistant Relationship Specialty [place] [address] [place] [address] PCP - General Physician [employer] 05/22/21 Cable Splicer Assistant Relationship Specialty Start [place] [address] [place] [address] PCP - General Physician [employer] 05/22/21 Cable Splicer Assistant Relationship Specialty Start [place] [address] [place] [address] PCP - General Physician [employer] 05/22/21 Cable Splicer Assistant Relationship Specialty Start [place] [address] [place] [address] PCP - General Physician [employer] 05/22/21 Cable Splicer Assistant Relationship Specialty Start [place] [address] [place] [address] PCP - General Physician [employer]hand 05/22/21 Scheduled Active and Recently Administ ered Medications (unrecognized section and content) Medication Order 07/17/2022 07/18/2022 07/19/2022 sodium chloride flush 0.9 % injection 5-40 mL 5-40 mL, IntraVENous, EVERY 12 HOURS SCHEDULED (2 times per day), First dose on Haleigh 07/19/22 at 1115, Until Discontinued, For Line Patency: Peripheral IV = 5 mL; Midline or Central Line = 10 mL/lumen. If following IV push medication, administer flush at same rate as the IV push. Flush volume is determined by type of infusion therapy being given. For non-viscous solutions use: Peripheral IV = 5 mL Midline or Central Line = 10 mL/lumen For viscous solutions (i.e. blood components, parenteral nutrition, contrast media, or after obtaining blood sample) use: Peripheral IV = 10 mL Midline or Central Line = 20 mL/lumen, PACU only 1115 (Due)2100 (Due) Continuous Medication Order 07/17/2022 07/18/2022 07/19/2022 lactated ringers infusion 1,000 mL (CANCELED) 1,000 mL, IntraVENous, at 50 mL/hr, CONTINUOUS, Starting on Haleigh 07/19/22 at 0800, Pre-op (day of surgery) 0819 (New Bag - Prov ider: Erin Ellsworth RN)0958 (NoRateChange - Provider: Alma Ramirez RN)1032 (Paused - Provider: Alma Ramirez RN - Comment: Switch to gravity)1033 (New Bag - Provider: Alma Ramirez, SHANTI)1057 (Anesthesia Volume Adjustment - Provider: Alma Ramirez, SHANTI) PRN Medication Order 07/17/2022 07/18/2022 07/19/2022 0.9 % sodium chloride infusion IntraVENous, at 5-250 mL/hr, PRN, if patient receiving piggyback infusions and maintenance fluids are not ordered OR KVO fluids to protect IV site / prevent frequent line interruptions/ long duration, Starting on Haleigh 07/19/22 at 1055, For piggyback infusion, administer at same rate as piggyback for a total of 25 mL. Enter 25 mL into dose field and piggyback rate into rate field of order. If piggyback is infusing at a rate less than 100 mL/hr, enter 25 mL into dose field and 100 mL/hr into rate field of order. For KVO fluids, enter rate of 20 mL/hr or less into rate field of order., PACU only diphenhydrAMINE (BENADRYL) injection 12.5 mg 12.5 mg, IntraVENous, ONCE PRN, 1 dose, Starting on Haleigh 07/19/22 at 1055, Until Haleigh 07/19/22 at 2359, Itching, PACU only fentaNYL (SUBLIMAZE) injection 25 mcg 25 mcg, IntraVENous, EVERY 5 MIN PRN, 4 doses, Starting on Haleigh 07/19/22 at 1055, Until Discontinued, Pain Moderate (4-6), Phase I - Initial therapy for moderate pain., PACU only fentaNYL (SUBLIMAZE) injection 50 mcg 50 mcg, IntraVENous, EVERY 5 MIN PRN, 4 doses, Starting on Haleigh 07/19/22 at 1055, Until Discontinued, Pain Severe (7-10), Phase I - Initial therapy for severe pain., PACU only gelatin adsorbable (GELFOAM) sponge (CANCELED) PRN, Starting on Haeligh 07/19/22 at 1025, Intra-op 1025 (Given - Provid er: Nidia Archer DO) lidocaine-EPINEPHrine 1 %-1:[id number] injection (CANCELED) PRN, Starting on Haleigh 07/19/22 at 1038, Until Haleigh 07/19/22 at 1054, Intra-op 1038 (Given - Provid er: Nidia Archer DO) ondansetron (ZOFRAN) injection 4 mg 4 mg, IntraVENous, ONCE PRN, 1 dose, Starting on Haleigh 07/19/22 at 1055, Until Haleigh 07/19/22 at 2359, Nausea, PACU only sodium chloride 0.9 % irrigation (CANCELED) CONTINUOUS PRN, Starting on Haleigh 07/19/22 at 1025, Intra-op 1025 (New Bag - Prov ider: Nidia Archer DO) sodium chloride flush 0.9 % injection 5-40 mL 5-40 mL, IntraVENous, PRN, Starting on Haleigh 07/19/22 at 1055, Until Discontinued, Line Care, After every IV line use, For Line Patency: Peripheral IV = 5 mL; Midline or Central Line = 10 mL/lumen. If following IV push medication, administer flush at same rate as the IV push. Flush volume is determined by type of infusion therapy being given. For non-viscous solutions use: Peripheral IV = 5 mL Midline or Central Line = 10 mL/lumen For viscous solutions (i.e. blood components, parenteral nutrition, contrast media, or after obtaining blood sample) use: Peripheral IV = 10 mL Midline or Central Line = 20 mL/lumen, PACU only thrombin kit (CANCELED) PRN, Starting on Haleigh 07/19/22 at 1025, Intra-op 1025 (Given - Provid er: Nidia Archer, DO - Comment: POURED TO BACK TABLE) FOR RECORDS PERTAINING TO PATIENTS WHO ARE OR HAVE BEEN ENROLLED IN A CHEMICAL DEPENDENCY/SUBSTANCEABUSE PROGRAM, SOME INFORMATION MAY BE OMITTED. This clinical summary was aggregated from multiple sources. Caution should be exercised in using it in the provision of clinical care. This summary normalizes information from multiple sources, and as a consequence, information in this document may materially change the coding, format and clinical context of patient data. In addition, data may be omitted in some cases. CLINICAL DECISIONS SHOULD BE BASED ON THE PRIMARY CLINICAL RECORDS. [employer] provides no warranty or guarantee of the accuracy or completeness of information in this document.
--- NOTE | 2024-04-22 10:43 | ED_ITS ---
HPI HPI - General Adult General Chief complaint: Extremity Problem, Nontraumatic Stated complaint: CHEST & LEG PAIN Time Seen by Provider: 04/22/24 10:12 Source: patient Mode of arrival: Wheelchair Limitations: no limitations History of Present Illness HPI narrative: Patient presents to ED complaining of right knee and leg pain. He also complains of generalized abdominal pain and chest pain. He was here on Saturday with similar symptoms but his leg was not as bad at that time. They did a cardiac workup and rule out and changed his blood pressure medication. They stopped his hydrochlorothiazide and continued his amlodipine. A couple of weeks ago he had a Presumably viral syndrome where he had nausea vomiting not feeling well, but did seem to get better after that. Today he reports increased knee swelling tightness behind the knee tightness in the calf and now the hamstring which is different than before. The reports that he has felt very warm but they do not have any documented fever. He said he feels more short of breath and winded than his normal. He is a runner and sometimes runs 15 miles a day but has not been able to run in over a week. He was prescribed prednisone and is on his last day today. He said the prednisone seems to help but when it wears off he is in a lot of pain. He said he has a lot of back pain as well. Denies recent vomiting, no UTI symptoms. Denies headache or visual changes, no neurological deficits. Related Data Home Medications ?Medication ?Instructions ?Recorded ?Confirmed atorvastatin 20 mg tablet 20 mg PO DAILY 04/22/24 04/22/24 Previous Rx's ?Medication ?Instructions ?Recorded amlodipine 10 mg tablet 10 mg PO DAILY #30 tabs 04/18/24 prednisone 20 mg tablet 40 mg (2 x 20 mg) PO DAILY 5 days 04/18/24 #10 tabs Allergies Allergy/AdvReac Type Severity Reaction Status Date / Time codeine Allergy Mild Nausea Verified 04/18/24 15:36 Opioid HPI Opioid Management Most Recent Opioid Data: Last ED Pain Assessment 04/18/24 16:14 Review of Systems ROS Status of ROS 10 or more systems reviewed and unremark able except as noted in history and below Exam Narrative Exam Narrative: Time Seen: [] Vital Signs: [Per nurse's notes.] General: [Alert] Skin: [Warm, dry, no rash.] Head: [Normocephalic, atraumatic.] Neck: [Supple, trachea midline.] Eye: [Pupils are equal, round and reactive to light, extraocular movements are intact, normal conjunctiva.] Ears, nose, mouth and throat: oral mucosa moist. Cardiovascular: [Regular rate and rhythm, no murmur.] Respiratory: Crackles in right lung base deep breath elicits a cough, respirations are non-labored, breath sounds are equal.] Chest wall: [No tenderness, no deformity.] Gastrointestinal: [Soft, nontender, non distended, normal bowel sounds.] MSK: 5 out of 5 muscle strength x 4 extremities Right knee swelling and mild fluctuance. No erythema. Tenderness to palpation in the right hamstring right posterior knee and right calf. Leg appears more swollen than the left. Normal distal pulses and sensation. Lymphatics: [No lymphadenopathy.] Psychiatric: [Cooperative, appropriate mood & affect.] Neurological: [Alert and oriented to person, place, time, and situation, no focal neurological deficit observed.] Constitutional Vital Signs, click to edit/add: Last Vital Signs Temp 98.0 F 04/22/24 10:13 Pulse 70 04/22/24 11:30 Resp 17 04/22/24 11:30 BP 141/84 04/22/24 12:05 Pulse Ox 96 04/22/24 13:00 O2 Del Method Room Air 04/22/24 10:13 Course Vital Signs Vital signs: Vital Signs Temperature 98.0 F 04/22/24 10:13 Pulse Rate 77 04/22/24 10:13 Respiratory Rate 18 04/22/24 10:13 Blood Pressure 139/87 04/22/24 10:13 Pulse Oximetry 99 04/22/24 10:13 Oxygen Delivery Method Room Air 04/22/24 10:13 Temperature 98.0 F 04/22/24 10:13 Pulse Rate 70 04/22/24 11:30 Respiratory Rate 17 04/22/24 11:30 Blood Pressure 141/84 04/22/24 12:05 Pulse Oximetry 96 04/22/24 13:00 Oxygen Delivery Method Room Air 04/22/24 10:13 Medical Decision Making MDM Narrative Medical decision making narrative: Patient's labs show an elevated white blood cell count although he has been on steroids. 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 He says the chest pain is very minor but it is more his leg that hurts. He did ambulate in ED to the bathroom but was limping a lot on that leg. Uric acid level normal. CT angio chest abdomen pelvis does not show any acute findings. Urine negative. Inflammatory markers and white blood cell count elevated, lactic acid normal. And concern for possible septic arthritis. I called and spoke to Edinson Kelsey, and he suggested tapping the knee and sending the fluid for analysis. Right knee was tapped and 60 cc of yellow cloudy fluid was obtained and sent down to the lab for analysis. Given the fact that we do not have a source for infection yet I think the patient needs to be admitted to the hospital. I called and spoke to Dr. Hart who agrees with admission. Patient and family are comfortable with care plan for admit. He was started on antibiotics prophylactically here in ED. Vascular study negative for DVT Differential Diagnosis Differential Diagnosis: Gout, PE, dissection, septic arthritis, viral syndrome Medical Records Medical records reviewed: Yes I reviewed the patient's medical records Lab Data Lab results reviewed: Yes I reviewed the patient's lab results Labs: Lab Results 04/22/24 04/22/24 Range/Units 10:41 10:53 WBC 18.4 H (4.0-11.0) 10^3/uL RBC 4.67 L (4.70-6.10) 10^6/uL Hgb 12.2 L (14.0-18.0) g/dL Hct 37.6 L (42.0-54.0) % MCV 80.5 (80.0-94.0) fL MCH 26.1 (25.9-34.0) pg MCHC 32.4 (29.9-35.2) g/dL RDW 14.9 (11.0-15.0) % Plt Count 480 H (150-450) 10^3/uL MPV 9.1 L (9.5-13.5) fL Neut % (Auto) 90.7 H (43.0-75.0) % Lymph % (Auto) 3.5 L (20.5-60.0) % [place] % (Auto) 4.6 (1.7-12.0) % Eos % (Auto) 0.0 L (0.9-7.0) % Baso % (Auto) 0.1 L (0.2-2.0) % Neut # (Auto) 16.7 H (1.4-6.5) 10^3/uL Lymph # (Auto) 0.6 L (1.2-3.8) 10^3/uL [place] # (Auto) 0.8 (0.3-0.8) 10^3/uL Eos # (Auto) 0.0 (0.0-0.7) 10^3/uL Baso # (Auto) 0.0 (0.0-0.1) 10^3/uL Abs Immat Gran (auto) 0.20 H (0.00-0.03) 10^3/uL Imm/Tot Granulo (auto) 1.1 H (0.0-0.5) % ESR 109 H (<=20) mm/hr Sodium 135 L (136-145) mmol/L Potassium 4.1 (3.5-5.1) mmol/L Chloride 101 (98-107) mmol/L Carbon Dioxide 24.0 (21.0-32.0) mmol/L Anion Gap 14.1 BUN 15.0 (7.0-18.0) mg/dL Creatinine 0.92 (0.70-1.30) mg/dL Est GFR ( Amer) >60 (>=60) Est GFR (Non-Af Amer) >60 (>=60) BUN/Creatinine Ratio 16.3 Glucose 122 H (74-106) mg/dL Lactate 0.8 (0.4-2.0) mmol/L Uric Acid 4.1 (3.5-7.2) mg/dL Calcium 8.5 (8.5-10.1) mg/dL Magnesium 1.7 L (1.8-2.4) mg/dL Total Bilirubin 0.7 (0.2-1.0) mg/dL AST 34 (15-37) U/L ALT 54 (16-63) U/L Alkaline Phosphatase 106 (46-116) U/L Total Creatine Kinase 99 (39-308) U/L Troponin I High Sens 4.6 (4.0-76.1) pg/mL C-Reactive Protein 12.85 H (<=0.50) mg/dL Total Protein 7.1 (6.4-8.2) g/dL Albumin 2.8 L (3.4-5.0) g/dL Globulin 4.3 g/dL Albumin/Globulin Ratio 0.7 Urine Color Yellow (YELLOW) Urine Clarity Clear (CLEAR) Urine pH 7.0 (5.0-9.0) Ur Specific [place] 1.010 (1.005-1.025) Urine Protein Negative (NEG/TRACE) mg/dL Urine Glucose (UA) Negative (NEGATIVE) mg/dL Urine Ketones Negative (NEGATIVE) mg/dL Urine Occult Blood Negative (NEGATIVE) Urine Nitrite Negative (NEGATIVE) Urine Bilirubin Negative (NEGATIVE) Urine Urobilinogen 0.2 (0.2-1.0) EU/dL Ur Leukocyte Esterase Negative (NEGATIVE) Imaging Data CT scan - chest: Radiologist's impression: ITS Impressions Abdomen/Pelvis CTA 04/22/24 10:31 IMPRESSION: No aortic aneurysm or dissection Electronically authenticated by: DENY JONES Date: 04/22/2024 12:54 Chest CTA 04/22/24 10:31 IMPRESSION: No aortic aneurysm or dissection Electronically authenticated by: DENY JONES Date: 04/22/2024 12:54 Venous Doppler Study 04/22/24 10:31 IMPRESSION: No deep or superficial vein thrombus identified in the right leg Electronically authenticated by: DENY JONES Date: 04/22/2024 11:35 ECG Data Attestation: I personally reviewed and interpreted this ECG as follows: Interpretation: EKG INTERPRETATION Time: []1030 Rate: []77 Rhythm: _ []Normal sinus rhythm ST segments: _ [] T waves: _ [] Ectopy: _ [] P wave/HI interval: _ [] QRS interval: _ [] QT interval: _ [] Comparison: _ [] Comparison EKG date: [] Performed by: [self]Incomplete right bundle branch blockNo acute ST elevation or depression Discharge Plan Discharge Chief Complaint: Extremity Problem, Nontraumatic Clinical Impression: Leukocytosis, Swelling of joint, knee, right Patient Disposition: Admitted As Inpatient Time of Disposition Decision: 13:39 Condition: Fair Prescriptions / Home Meds: No Action amlodipine 10 mg tablet 10 mg PO DAILY Qty: 30 0RF prednisone 20 mg tablet 40 mg PO DAILY 5 Days Qty: 10 0RF atorvastatin 20 mg tablet 20 mg PO DAILY Print Language: Zambian Referrals: DALIA CÁRDENAS [Primary Care Provider] - 1 week Procedures ED Joint Aspiration Injection Joint Aspiration/Injection Joint Asp./Inject. 1: Time out performed: Yes Side of body: right Joint aspirated: knee (R) Ultrasound guidance: No Skin prep: sterile prep and drape Local anesthesia used: with Epi Amount of anesthesia used (ml): 3 Needle size used: 18G Fluid obtained: viscous Total fluid obtained (ml): 60 Patient tolerated procedure: well Complications: none
[2024-04-22] MEDS: 0.9 % SODIUM CHLORIDE 1,000 ML 1000 ML IV (10:54)
[2024-04-22] MEDS: KETOROLAC TROMETHAMINE 30 MG/ML VIAL 15 MG IVP (10:55)
[2024-04-22 11:02] LABS: Basophils Percent Auto 0.1 % (0.2-2.0); Hematocrit 37.6 % (42.0-54.0); Hemoglobin 12.2 g/dL (14.0-18.0); Immature Granulocytes Pct Auto 1.1 % (0.0-0.5); Lymphocytes Absolute Auto 0.6 10^3/uL (1.2-3.8); Lymphocytes Percent Auto 3.5 % (20.5-60.0); Mean Corpuscular HGB Conc 32.4 g/dL (29.9-35.2); Mean Corpuscular Hemoglobin 26.1 pg (25.9-34.0); Mean Corpuscular Volume 80.5 fL (80.0-94.0); Mean Platelet Volume 9.1 fL (9.5-13.5); Monocytes Absolute Auto 0.8 10^3/uL (0.3-0.8); Monocytes Percent Auto 4.6 % (1.7-12.0); Neutrophils Absolute Auto 16.7 10^3/uL (1.4-6.5); Neutrophils Percent Auto 90.7 % (43.0-75.0); Platelet Count 480 10^3/uL (150-450); Red Blood Count 4.67 10^6/uL (4.70-6.10); Red Cell Distribution Width 14.9 % (11.0-15.0); White Blood Count 18.4 10^3/uL (4.0-11.0)
[2024-04-22 11:09] LABS: Bilirubin Urine NEGATIVE (NEGATIVE); Blood Urine NEGATIVE (NEGATIVE); Clarity Urine CLEAR (CLEAR); Color Urine YELLOW (YELLOW); Glucose Urine UA NEGATIVE (NEGATIVE); Ketones Urine NEGATIVE (NEGATIVE); Leukocyte Esterase Urine NEGATIVE (NEGATIVE); Nitrite Urine NEGATIVE (NEGATIVE); Protein Urine NEGATIVE (NEG/TRACE); Urobilinogen Urine 0.2 EU/dL (0.2-1.0)
[2024-04-22 11:12] LABS: Urine Microscopic Indicated NO
[2024-04-22 11:20] LABS: Erythrocyte Sedimentation Rate 109 mm/hr (<=20)
[2024-04-22 11:28] LABS: Lactate/Lactic Acid 0.8 mmol/L (0.4-2.0)
[2024-04-22 11:35] LABS: Alanine Aminotransferase 54 U/L (16-63); Albumin Globulin Ratio 0.7; Albumin Level 2.8 g/dL (3.4-5.0); Alkaline Phosphatase 106 U/L (46-116); Anion Gap 14.1; Aspartate Amino Transferase 34 U/L (15-37); BUN Creatinine Ratio 16.3; Bilirubin Total 0.7 mg/dL (0.2-1.0); C Reactive Protein 12.85 mg/dL (<=0.50); Calcium 8.5 mg/dL (8.5-10.1); Chloride 101 mmol/L (98-107); Creatine Kinase 99 U/L (39-308); Estimated GFR (African America >60 (>=60); Estimated GFR (Non-African Ame >60 (>=60); Globulin 4.3 g/dL; Glucose 122 mg/dL (74-106); Magnesium 1.7 mg/dL (1.8-2.4); Potassium 4.1 mmol/L (3.5-5.1); Sodium 135 mmol/L (136-145); Total Protein 7.1 g/dL (6.4-8.2); Troponin I High Sensitivity 4.6 pg/mL (4.0-76.1); Uric Acid 4.1 mg/dL (3.5-7.2)
[2024-04-22] MEDS: MAGNESIUM SULFATE/D5W 1 GM/100 ML PREMIX IV (12:01)
[2024-04-22] MEDS: LIDOCAINE HCL 1%-EPINEPHRINE 1:100,000 20 ML MDV INJ (13:13)
--- NOTE | 2024-04-22 13:24 | XR_ITS ---
[address] [address] Patient Name: LONDON DAMON MRN: [id number] date: 1970 Sex: M Assigned Patient Location: ER Current Patient Location: ED.MAIN Accession/Order Number: [id number] Exam Date: 04/22/2024 13:34 Report Date: 04/22/2024 13:48 At the request of: DANICA PINEDA Procedure: XR knee RT 3V PROCEDURE: XR knee RT 3V COMPARISON: None. HISTORY: knee pain FINDINGS: BONES:No acute fracture or dislocation. Mild tricompartmental osteoarthropathy with marginal osteophyte formation SOFT TISSUES:Negative. No visible soft tissue swelling. EFFUSION:Moderate joint effusion OTHER: Vascular calcifications XR/XR knee RT 3V IMPRESSION: Mild osteoarthritis Moderate joint effusion Electronically authenticated by: DENY JONES Date: 04/22/2024 13:48
[2024-04-22] MEDS: PIPERACILLIN SODIUM/TAZOBACTAM 3.375 GM in 0.9 % SODIUM CHLORIDE 50 ML IV ×2 (13:51→22:03)
[2024-04-22 13:54] LABS: Glucometer 149 mg/dL (74-106)
--- NOTE | 2024-04-22 14:00 | ECG_ITS ---
[facility] Test Date: 2024-04-22 Pat Name: LONDON DAMON Department: Room: [facility] Gender: Male [employer]orad[employer] Operator: : 1970 Requested By: DALIA CÁRDENAS Order Number: [id number] Reading MD: BI HALL Measurements Intervals Wilson Rate: 60 P: 58 MO: 148 QRS: -86 QRSD: 102 T: 78 QT: 436 QTc: 440 Interpretive Statements 1100 Sinus bradycardia with occasional ventricular premature complexes 7200 Abnormal left axis deviation 8003 Consistent with pulmonary disease 9150 abnormal ECG Electronically Signed On 04-22-2024 23:07:11 EDT by BI HALL
[2024-04-22 14:17] LABS: INR 1.04; Partial Thromboplastin Time 29.9 sec (22.3-36.2)
[2024-04-22] MEDS: VANCOMYCIN HCL 1,000 MG in 0.9 % SODIUM CHLORIDE 250 ML 250 MG IV (14:25)
[2024-04-22] MEDS: LACTATED RINGER'S SOLUTION 1,000 ML 125 ML IV ×2 (15:21→22:04)
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
[2024-04-22 16:07] LABS: Adenovirus NOT DETECTED (NOT DETECTE); Bordetella parapertussis NOT DETECTED (NOT DETECTE); Coronavirus 229E NOT DETECTED (NOT DETECTE); Coronavirus HKU1 NOT DETECTED (NOT DETECTE); Coronavirus NL63 NOT DETECTED (NOT DETECTE); Coronavirus OC43 NOT DETECTED (NOT DETECTE); Human Metapneumovirus NOT DETECTED (NOT DETECTE); Human Rhinovirus/Enterovirus NOT DETECTED (NOT DETECTE); Influenza A NOT DETECTED (NOT DETECTE); Influenza B NOT DETECTED (NOT DETECTE); Mycoplasma pneumoniae NOT DETECTED (NOT DETECTE); Parainfluenza Virus 1 NOT DETECTED (NOT DETECTE); Parainfluenza Virus 2 NOT DETECTED (NOT DETECTE); Parainfluenza Virus 4 NOT DETECTED (NOT DETECTE); Respiratory Syncytial Virus NOT DETECTED (NOT DETECTE); SARS-CoV-2 NOT DETECTED (NOT DETECTE)
--- NOTE | 2024-04-22 16:36 | PC.NURSE ---
can in lab called to inquire about order from Dr king for crystal analysis of knee aspiration fluid taken in ER. Nel says specimen sent to [facility], but she will call to add crystal analysis to order.
[2024-04-22 16:58] LABS: Parainfluenza Virus 3 DETECTED (NOT DETECTE)
--- NOTE | 2024-04-22 20:58 | PM.ORCN ---
History of Present Illness [facility] Consult date: 04/22/24 Consult reason: joint pain Chief complaint: CHEST & LEG PAIN Narrative: Patient is a 54-year-old who was admitted with right knee pain and concern for septic arthritis. He gives a history of flulike symptoms with bodyaches and muscle pain that started about a week ago. This resolved and then he started to have symptoms such as shortness of breath scapular and rib pain. 2 days ago he reports his right leg, calf and posterior knee started to become painful. He presented to the emergency room today due to difficulty bearing weight. In the emergency room an aspiration was performed of his right knee. He was admitted for concerns of septic arthritis. He does report since his knee aspiration he is feeling significantly better in terms of his right posterior knee pain. He also had a Doppler study that was negative for DVT. He last ran 5 days ago. He is an avid runner and will run 10 to 15 miles at a time. He has a history of gout. In 2020 he reports a history of a spontaneous brain bleed which required no additional intervention. He reports since that time he was told that he could not be on blood thinners such as Coumadin but he reports he is allowed to take anti-inflammatories. He also has a history of left upper extremity complex regional pain syndrome after an injury. Review of Systems ROS Status of ROS 10 or more systems reviewed and unremarkable except as noted in history and below [facility] Medical History (Updated 04/22/24 @ 15:45 by María Hart DO) Brain bleed ?I61.9 - Nontraumatic intracerebral hemorrhage, unspecified (ICD-10) Reflex sympathetic dystrophy ?G90.50 - Complex regional pain syndrome I, unspecified (ICD-10) Anxiety ?F41.9 - Anxiety disorder, unspecified (ICD-10) High cholesterol ?E78.00 - Pure hypercholesterolemia, unspecified (ICD-10) Hypertension ?I10 - Essential (primary) hypertension (ICD-10) Surgical History H/O elbow surgery ?Z98.890 - Other specified postprocedural states (ICD-10) S/P placement of nerve stimulator ?Z96.82 - Presence of neurostimulator (ICD-10) Family History Father Family history of cancer Family history of hypertension Family history of myocardial infarction Mother Family history of diabetes mellitus Family history of hypertension Grandfather Family history of stroke Social History Within the past year, how often did you have a drink containing alcohol: 2-3 times a week Within the past year, how often did you have six or more drinks on one occasion: never Smoking status: Never smoker Non-prescribed substance use: denies use Previous occupational history: [email or web address] Highest level of school completed/degree received: Bachelor's degree Are you now , , , , never or living with a partner: Little interest or pleasure in doing things: not at all Feeling down, depressed, or hopeless: not at all Feel stressed/tense/nervous/anxious/difficulty sleeping: only a little Meds Home Medications and Allergies Home Medications ?Medication ?Instructions ?Recorded ?Confirmed ?Type amlodipine 10 mg tablet 10 mg PO DAILY #30 tabs 04/18/24 04/22/24 Rx atorvastatin 20 mg tablet 20 mg PO DAILY 04/22/24 04/22/24 History citalopram 10 mg tablet 10 mg PO DAILY 04/22/24 04/22/24 History Allergies Allergy/AdvReac Type Severity Reaction Status Date / Time codeine Allergy Mild Nausea Verified 04/18/24 15:36 Exam Narrative Exam Narrative: On exam today his right knee skin is intact. There is no erythema or warmth. He has a mild joint effusion. He has no joint line tenderness. No tibial plateau tenderness. Mild tenderness of the posterior knee. He has 5 to 70 degrees of motion with mild discomfort. No gross ligamentous instability. Constitutional Vital Signs, click to edit/add: Last Vital Signs Temp 98.1 F 04/22/24 15:09 Pulse 58 L 04/22/24 20:16 Resp 18 04/22/24 20:16 BP 136/81 04/22/24 15:09 Pulse Ox 96 04/22/24 20:09 O2 Del Method Room Air 04/22/24 20:09 Results Labs Labs: Abnormal lab results 04/22/24 04/22/24 04/22/24 Range/Units 10:41 13:45 15:58 WBC 18.4 H (4.0-11.0) 10^3/uL RBC 4.67 L (4.70-6.10) 10^6/uL Hgb 12.2 L (14.0-18.0) g/dL Hct 37.6 L (42.0-54.0) % Plt Count 480 H (150-450) 10^3/uL MPV 9.1 L (9.5-13.5) fL Neut % (Auto) 90.7 H (43.0-75.0) % Lymph % (Auto) 3.5 L (20.5-60.0) % Eos % (Auto) 0.0 L (0.9-7.0) % Baso % (Auto) 0.1 L (0.2-2.0) % Neut # (Auto) 16.7 H (1.4-6.5) 10^3/uL Lymph # (Auto) 0.6 L (1.2-3.8) 10^3/uL Abs Immat Gran (auto) 0.20 H (0.00-0.03) 10^3/uL Imm/Tot Granulo (auto) 1.1 H (0.0-0.5) % ESR 109 H (<=20) mm/hr Sodium 135 L (136-145) mmol/L Glucose 122 H (74-106) mg/dL Magnesium 1.7 L (1.8-2.4) mg/dL C-Reactive Protein 12.85 H (<=0.50) mg/dL Albumin 2.8 L (3.4-5.0) g/dL Parainfluenza 3 (PCR) Detected A (NOT DETECTE) POC Glucose 149 H (74-106) mg/dL H & H 04/22/24 Range/Units 10:41 Hgb 12.2 L (14.0-18.0) g/dL Hct 37.6 L (42.0-54.0) % Coagulation 04/22/24 Range/Units 10:41 INR 1.04 Gram stain of his knee aspirate shows no bacteria visualized and many white blood cells. Culture results are pending. Crystal analysis and cell count are not reported Diagnostic results Knee x-ray: other (X-rays of his right knee were reviewed and show a mild to moderate osteoarthritis with joint space narrowing and osteophyte formation) Assessment and Plan Assessment and Plan (1) Swelling of joint, knee, right: Assessment and Plan: Patient's right knee pain and swelling with a differential of osteoarthritis, crystal deposition disease such as gout or pseudogout, inflammatory, secondary to viral syndrome, septic joint. His physical exam findings make it less likely that this is a septic joint. (2) Leukocytosis: Qualifiers: Leukocytosis type: unspecified Qualified Code(s): D72.829 - Elevated white blood cell count, unspecified (3) Generalized muscle ache: (4) Anxiety: (5) High cholesterol: (6) Hypertension: Plan Will follow crystal analysis and culture results. Agree with Toradol. In terms of his knee, antibiotics may be discontinued. Patient may be weightbearing as tolerated with assistive device such as crutches or walker. Ice and elevation.
[2024-04-22] MEDS: KETOROLAC TROMETHAMINE 30 MG/ML VIAL IVP (22:04)
[2024-04-23] VITALS (19 sets, daily range): BP systolic 123–154; BP diastolic 72–83; PULSE 49–78; TEMP 36.5–36.7; O2SAT 94–98
[2024-04-23] MEDS: VANCOMYCIN HCL 1,250 MG in 0.9 % SODIUM CHLORIDE 250 ML 166.667000000000002 MG IV ×2 (01:17→13:44)
[2024-04-23] MEDS: KETOROLAC TROMETHAMINE 30 MG/ML VIAL IVP ×2 (05:49→18:22)
[2024-04-23] MEDS: PIPERACILLIN SODIUM/TAZOBACTAM 3.375 GM in 0.9 % SODIUM CHLORIDE 50 ML IV ×3 (05:49→22:15)
[2024-04-23 06:58] LABS: Basophils Percent Auto 0.2 % (0.2-2.0); Eosinophils Absolute Auto 0.1 10^3/uL (0.0-0.7); Eosinophils Percent Auto 0.5 % (0.9-7.0); Hematocrit 33.2 % (42.0-54.0); Immature Granulocytes Abs Auto 0.14 10^3/uL (0.00-0.03); Immature Granulocytes Pct Auto 1.2 % (0.0-0.5); Lymphocytes Absolute Auto 1.3 10^3/uL (1.2-3.8); Lymphocytes Percent Auto 10.4 % (20.5-60.0); Mean Corpuscular HGB Conc 33.1 g/dL (29.9-35.2); Mean Corpuscular Hemoglobin 26.6 pg (25.9-34.0); Mean Corpuscular Volume 80.2 fL (80.0-94.0); Mean Platelet Volume 9.1 fL (9.5-13.5); Monocytes Absolute Auto 0.8 10^3/uL (0.3-0.8); Monocytes Percent Auto 6.6 % (1.7-12.0); Neutrophils Absolute Auto 9.9 10^3/uL (1.4-6.5); Neutrophils Percent Auto 81.1 % (43.0-75.0); Platelet Count 431 10^3/uL (150-450); Red Blood Count 4.14 10^6/uL (4.70-6.10); Red Cell Distribution Width 14.9 % (11.0-15.0); White Blood Count 12.2 10^3/uL (4.0-11.0)
[2024-04-23 07:18] LABS: Alanine Aminotransferase 43 U/L (16-63); Albumin Globulin Ratio 0.5; Alkaline Phosphatase 85 U/L (46-116); Anion Gap 10.9; Aspartate Amino Transferase 32 U/L (15-37); BUN Creatinine Ratio 19.8; Bilirubin Total 0.6 mg/dL (0.2-1.0); Calcium 8.1 mg/dL (8.5-10.1); Carbon Dioxide 26.8 mmol/L (21.0-32.0); Chloride 105 mmol/L (98-107); Estimated GFR (African America >60 (>=60); Estimated GFR (Non-African Ame >60 (>=60); Globulin 3.8 g/dL; Glucose 99 mg/dL (74-106); Potassium 3.7 mmol/L (3.5-5.1); Sodium 139 mmol/L (136-145); Total Protein 5.8 g/dL (6.4-8.2)
[2024-04-23 07:20] LABS: A. calcoaceticus-baumannii Cpx NOT DETECTED (NOT DETECTE); Bacteroides fragilis NOT DETECTED (NOT DETECTE); Candida albicans NOT DETECTED (NOT DETECTE); Candida auris NOT DETECTED (NOT DETECTE); Candida glabrata NOT DETECTED (NOT DETECTE); Candida krusei NOT DETECTED (NOT DETECTE); Candida parapsilosis NOT DETECTED (NOT DETECTE); Candida tropicalis NOT DETECTED (NOT DETECTE); Cryptococcus neoformans/gattii NOT DETECTED (NOT DETECTE); Enterobacter cloacae complex NOT DETECTED (NOT DETECTE); Enterobacterales NOT DETECTED (NOT DETECTE); Enterococcus faecalis NOT DETECTED (NOT DETECTE); Enterococcus faecium NOT DETECTED (NOT DETECTE); Haemophilus influenzae NOT DETECTED (NOT DETECTE); Klebsiella aerogenes NOT DETECTED (NOT DETECTE); Klebsiella pneumoniae group NOT DETECTED (NOT DETECTE); Listeria monocytogenes NOT DETECTED (NOT DETECTE); Neisseria meningitidis NOT DETECTED (NOT DETECTE); Proteus spp. NOT DETECTED (NOT DETECTE); Pseudomonas aeruginosa NOT DETECTED (NOT DETECTE); Salmonella spp. NOT DETECTED (NOT DETECTE); Serratia marcescens NOT DETECTED (NOT DETECTE); Staphylococcus epidermidis NOT DETECTED (NOT DETECTE); Staphylococcus lugdunensis NOT DETECTED (NOT DETECTE); Stenotrophomonas maltophilia NOT DETECTED (NOT DETECTE); Streptococcus agalactiae NOT DETECTED (NOT DETECTE); Streptococcus pneumoniae NOT DETECTED (NOT DETECTE); Streptococcus pyogenes NOT DETECTED (NOT DETECTE); Streptococcus spp. NOT DETECTED (NOT DETECTE)
[2024-04-23] MEDS: LACTATED RINGER'S SOLUTION 1,000 ML 125 ML IV ×3 (07:59→22:19)
--- NOTE | 2024-04-23 08:44 | P.DS_ITS ---
DS: Providers Provider Date of admission: 04/22/24 14:37 Primary care physician: DALIA CÁRDENAS Consults: 04/22/24 13:52 Physical Therapy Eval and Treat Routine Reason for consultation: knee swelling/pain Has provider been notified: No 04/22/24 15:49 Consult to Orthopedic Surgery Routine Consulting Provider: Howie Latham Reason For Exam: Reason for consultation: right joint effusion/septic joint Has provider been notified: No DS: Diagnosis Discharge Diagnosis (1) Swelling of joint, knee, right: (2) Leukocytosis: Qualifiers: Leukocytosis type: unspecified Qualified Code(s): D72.829 - Elevated white blood cell count, unspecified (3) Generalized muscle ache: (4) Anxiety: (5) High cholesterol: (6) Hypertension: DS: Summary Time Spent with Patient Time attestation: Total time spent providing and/or coordinating discharge services: Exam Constitutional Vital Signs, click to edit/add: Last Vital Signs Temp 98.0 F 04/23/24 08:07 Pulse 55 L 04/23/24 08:07 Resp 16 04/23/24 08:07 BP 137/81 04/23/24 08:07 Pulse Ox 98 04/23/24 08:07 O2 Del Method Room Air 04/23/24 08:07 DS: Data Data Completed and Pending Labs on day of discharge: Labs from last 24 hours 04/23/24 04/22/24 04/22/24 06:51 15:58 13:45 WBC 12.2 H RBC 4.14 L Hgb 11.0 L Hct 33.2 L MCV 80.2 MCH 26.6 MCHC 33.1 RDW 14.9 Plt Count 431 MPV 9.1 L Neut % (Auto) 81.1 H Lymph % (Auto) 10.4 L Morton % (Auto) 6.6 Eos % (Auto) 0.5 L Baso % (Auto) 0.2 Neut # (Auto) 9.9 H Lymph # (Auto) 1.3 Morton # (Auto) 0.8 Eos # (Auto) 0.1 Baso # (Auto) 0.0 Abs Immat Gran (auto) 0.14 H Imm/Tot Granulo (auto) 1.2 H ESR PT INR APTT Sodium 139 Potassium 3.7 Chloride 105 Carbon Dioxide 26.8 Anion Gap 10.9 BUN 16.0 Creatinine 0.81 Est GFR ( Amer) >60 Est GFR (Non-Af Amer) >60 BUN/Creatinine Ratio 19.8 Glucose 99 Lactate Uric Acid Calcium 8.1 L Magnesium Total Bilirubin 0.6 AST 32 ALT 43 Alkaline Phosphatase 85 Total Creatine Kinase Troponin I High Sens C-Reactive Protein Total Protein 5.8 L Albumin 2.0 L Globulin 3.8 Albumin/Globulin Ratio 0.5 Urine Color Urine Clarity Urine pH Ur Specific [place] Urine Protein Urine Glucose (UA) Urine Ketones Urine Occult Blood Urine Nitrite Urine Bilirubin Urine Urobilinogen Ur Leukocyte Esterase Fluid Color Adenovirus (PCR) Not detected B. pertussis DNA (PCR) Not detected B.parapertussis DNA PCR Not detected C. pneumoniae DNA (PCR) Not detected Coronavirus Type OC43 Not detected Coronavirus Type HKU1 Not detected Coronavirus Type 229E Not detected Coronavirus Type NL63 Not detected Human Metapneumovir PCR Not detected Influenza Type A (PCR) Not detected Influenza Type B (PCR) Not detected M. pneumoniae (PCR) Not detected Parainfluenza PCR Not detected Parainfluenza 2 (PCR) Not detected Parainfluenza 3 (PCR) Detected A Parainfluenza 4 (PCR) Not detected RSV (RT-PCR) Not detected Entero/Rhino (PCR) Not detected SARS-CoV-2 (PCR) Not detected POC Glucose 149 H 04/22/24 04/22/24 04/22/24 13:22 10:53 10:41 WBC 18.4 H RBC 4.67 L Hgb 12.2 L Hct 37.6 L MCV 80.5 MCH 26.1 MCHC 32.4 RDW 14.9 Plt Count 480 H MPV 9.1 L Neut % (Auto) 90.7 H Lymph % (Auto) 3.5 L Morton % (Auto) 4.6 Eos % (Auto) 0.0 L Baso % (Auto) 0.1 L Neut # (Auto) 16.7 H Lymph # (Auto) 0.6 L Morton # (Auto) 0.8 Eos # (Auto) 0.0 Baso # (Auto) 0.0 Abs Immat Gran (auto) 0.20 H Imm/Tot Granulo (auto) 1.1 H ESR 109 H PT 11.0 INR 1.04 APTT 29.9 Sodium 135 L Potassium 4.1 Chloride 101 Carbon Dioxide 24.0 Anion Gap 14.1 BUN 15.0 Creatinine 0.92 Est GFR ( Amer) >60 Est GFR (Non-Af Amer) >60 BUN/Creatinine Ratio 16.3 Glucose 122 H Lactate 0.8 Uric Acid 4.1 Calcium 8.5 Magnesium 1.7 L Total Bilirubin 0.7 AST 34 ALT 54 Alkaline Phosphatase 106 Total Creatine Kinase 99 Troponin I High Sens 4.6 C-Reactive Protein 12.85 H Total Protein 7.1 Albumin 2.8 L Globulin 4.3 Albumin/Globulin Ratio 0.7 Urine Color Yellow Urine Clarity Clear Urine pH 7.0 Ur Specific [place] 1.010 Urine Protein Negative Urine Glucose (UA) Negative Urine Ketones Negative Urine Occult Blood Negative Urine Nitrite Negative Urine Bilirubin Negative Urine Urobilinogen 0.2 Ur Leukocyte Esterase Negative Fluid 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 pertussis DNA (PCR) B.parapertussis DNA PCR C. pneumoniae DNA (PCR) Coronavirus Type OC43 Coronavirus Type HKU1 Coronavirus Type 229E Coronavirus Type NL63 Human Metapneumovir PCR Influenza Type A (PCR) Influenza Type B (PCR) M. pneumoniae (PCR) Parainfluenza PCR Parainfluenza 2 (PCR) Parainfluenza 3 (PCR) Parainfluenza 4 (PCR) RSV (RT-PCR) Entero/Rhino (PCR) SARS-CoV-2 (PCR) POC Glucose Discharge Plan Discharge Condition: Fair Discharge Medications: No Action amlodipine 10 mg tablet 10 mg PO DAILY Qty: 30 0RF atorvastatin 20 mg tablet 20 mg PO DAILY citalopram 10 mg tablet 10 mg PO DAILY Print Language: Georgian
[2024-04-23] MEDS: ATORVASTATIN CALCIUM 20 MG TABLET PO (09:21)
[2024-04-23] MEDS: AMLODIPINE BESYLATE 5 MG TABLET 10 MG PO (09:21)
[2024-04-23] MEDS: CITALOPRAM HYDROBROMIDE 20 MG TABLET 10 MG PO (09:21)
[2024-04-23 09:48] LABS: Source Blood; mecA/C and MREJ (MRSA) NOT DETECTED (NOT DETECTE)
[2024-04-23 09:49] LABS: Staphylococcus spp. DETECTED (NOT DETECTE)
--- NOTE | 2024-04-23 09:56 | CA_ITS ---
Patient Name: LONDON DAMON MR#: [id number] : 1970 Exam Date: 04/23/2024 Ordering Doctor: LAURYN NUR . ECHOCARDIOGRAM REPORT PROCEDURE: CA ECHO DOPPLER COMPLETE INDICATIONS: chest pain, shortness of breath, bacteremia COMPARISON: None. DESCRIPTION: COMPLETE ECHOCARDIOGRAM Real-time transthoracic echocardiography with 2D, M-mode, spectral and color flow Doppler performed. QUALITY: Technical quality was good. LEFT VENTRICLE: Normal chamber size. Mildly increased left ventricular wall thickness. LV EF: Global left ventricular systolic function is normal. Calculated left ventricular ejection fraction is 56%. No regional wall motion abnormalities. DIASTOLIC: Diastolic function is indeterminate. ATRIAL SEPTUM: Inadequately seen. LEFT ATRIUM: Mild dilatation. RIGHT ATRIUM: Moderate dilatation. RIGHT VENTRICLE: Normal chamber size. Normal right ventricular systolic function. TRICUSPID VALVE: Normal mobility and thickness. Mild regurgitation. Moderate pulmonary hypertension. RVSP 56mmHg MITRAL VALVE: Normal mobility and thickness. No evidence of mitral valve stenosis. There is no mitral annular calcification. Mild mitral regurgitation. AORTIC VALVE: Normal trileaflet appearance. Nodular calcification. Normal leaflet mobility. No evidence of aortic valve stenosis. Mild aortic regurgitation. AORTIC ROOT: Normal diameter and appearance. PULMONIC VALVE: Normal thickness and mobility. No stenosis. Mild regurgitation. PERICARDIUM: No evidence of pericardial effusion. CONCLUSION: 1. Global left ventricular systolic function is normal; visually estimated ejection fraction is 55 to 60% 2. Normal right ventricular size and systolic function 3. Mild increased left ventricular wall thickness 4. Biatrial enlargement 5. Diastolic function is indeterminate 6. Mild tricuspid regurgitation 7. Moderately elevated right ventricular systolic pressure; RVSP 56 mmHg 8. Mild mitral regurgitation 9. Mild aortic valve regurgitation 10. Mild pulmonic regurgitation Adult Echocardiography Procedure Report Left Ventricle LVEDD (3.7 - 5.6 cm): 5.46 cm LVESD (2.2 - 4.0 cm): 3.89 cm LVIVS thickness (0.6 - 1.2 cm): 1.04 cm LVPW thickness (0.5 - 1.0 cm): 1.12 cm e': 0.12 m/s E - e': 6.98 LVOT Max Gradient: 4.14 mm[Hg] LVOT Area (cm2): 1.02 m/s Peak Velocity (LVOT): 1.02 m/s Mean Velocity (LVOT): 0.70 m/s LVOT Diameter 2.23 cm Left Ventricular Ejection Fraction: 56.49 % Left Atrium LA Volume Index (2D A2C): 43.07 ml/m2 Left Atrium Systolic Dimension: 3.61 cm Mitral Valve MV E to A Ratio: 0.91 Mitral Valve A-Wave Peak Velocity: 0.90 m/s Mitral Valve E-Wave Peak Velocity: 0.82 m/s Right Ventricle RV Internal Diastolic Dimension: 3.78 cm Aorta AO Root Diam: 2.97 cm Ascending Ao Diam: 2.37 cm Aortic Valve AoV Area (Peak Akhil): 2.38 cm2, 2.43 cm2 AoV Area (VTI): 2.13 cm2, 2.16 cm2 Deceleration Bonner: 1.97 m/s2 Pressure Half-Time: 566.16 ms Peak Velocity(Antegrade Flow): 1.63 m/s, 1.69 m/s Peak Gradient(Antegrade Flow): 10.65 mm[Hg], 11.49 mm[Hg] Mean Velocity(Antegrade Flow): 1.18 m/s, 1.24 m/s Mean Gradient(Antegrade Flow): 6.21 mm[Hg], 6.66 mm[Hg] Velocity Time Integral: 39.47 cm, 40.48 cm Tricuspid Valve Peak Velocity (Regurgitant Flow): 1.76 m/s, 3.64 m/s Pulmonic Valve Peak Velocity: 1.01 m/s Peak Gradient: 3.98 mm[Hg], 4.21 mm[Hg] Right Atrium Right Atrium Systolic Pressure: 98.15 ml, 98.15 ml Dictated by: Noemy Bartlett M.D. on 04/23/2024 at 14:00 Approved by: Noemy Bartlett M.D. on 04/23/2024 at 14:06
--- NOTE | 2024-04-23 09:59 | PM.PN ---
Progress Note: Subjective Subjective Interval history: Patient is resting in bed. Denies any further chest pain, shortness of breath, no fevers overnight. Discussed Viral culture positive for parainfluenza. Still awaiting knee/fluid analysis. Dr. Latham/Ortho did see patient last night and appreciate his recommendations. Effusion returning to the right knee this morning. Also, Blood culture positive for Staph Aureus this morning. Exam Narrative Exam Narrative: General: Patient is alert, and oriented to person, place and time with normal affect, proper hygiene Skin: no visible rashes, or ulcers Head: atraumatic, acephalic Eyes: PERRLA, no nystagmus present, conjunctiva clear, no scleral icterus Ears: normal gross auditory acuity Heart: Normal rate and rhythm, no murmurs/rubs/gallops Neck: scar over the cervical spine Lungs: no audible wheezes, crackles and normal breath sounds all lung vicente Abdomen: Normal audible bowel sounds, no distension, No palpable masses, no organomegaly, no rebound/guarding/ or rigidity Musculoskeletal: slight effusion worse today noted on the right knee, no posterior knee swelling, no redness to the knee joint or warmth, or abrasions Vascular: Normal carotid, radial, femoral, posterior tibial, and dorsalis pedis pulses Neuro: CN II-X grossly intact, normal sensation upper and lower extremities Constitutional Vital Signs, click to edit/add: Last Vital Signs Temp 98.0 F 04/23/24 08:07 Pulse 56 L 04/23/24 09:55 Resp 16 04/23/24 08:07 BP 137/81 04/23/24 08:07 Pulse Ox 98 04/23/24 08:07 O2 Del Method Room Air 04/23/24 08:07 Progress Note: Objective Labs Labs: Short CBC 04/22/24 04/23/24 Range/Units 10:41 06:51 WBC 18.4 H 12.2 H (4.0-11.0) 10^3/uL Hgb 12.2 L 11.0 L (14.0-18.0) g/dL Hct 37.6 L 33.2 L (42.0-54.0) % Plt Count 480 H 431 (150-450) 10^3/uL BMP 04/22/24 04/23/24 10:41 06:51 Sodium 135 L 139 Potassium 4.1 3.7 Chloride 101 105 Carbon Dioxide 24.0 26.8 BUN 15.0 16.0 Creatinine 0.92 0.81 Glucose 122 H 99 Calcium 8.5 8.1 L Cardiac Enzymes 04/22/24 Range/Units 10:41 Total Creatine Kinase 99 (39-308) U/L Liver Function 04/22/24 04/23/24 Range/Units 10:41 06:51 Total Bilirubin 0.7 0.6 (0.2-1.0) mg/dL AST 34 32 (15-37) U/L ALT 54 43 (16-63) U/L Alkaline Phosphatase 106 85 (46-116) U/L Albumin 2.8 L 2.0 L (3.4-5.0) g/dL Urine 04/22/24 Range/Units 10:53 Urine Color Yellow (YELLOW) Urine Clarity Clear (CLEAR) Urine pH 7.0 (5.0-9.0) Ur Specific [place] 1.010 (1.005-1.025) Urine Protein Negative (NEG/TRACE) mg/dL Urine Glucose (UA) Negative (NEGATIVE) mg/dL Progress Note: A&P Assessment and Plan (1) Staphylococcus aureus bacteremia without sepsis: Assessment and Plan: Leukocytosis improving on the Vancomycin and Zosyn. Patient remains afebrile. Lactate was normal on admission. Preliminary blood cultures positive for Staph Aureus, awaiting sensitivities and final culture results, also still awaiting synovial fluid results from joint aspiration. Echocardiogram today. continue IV antibiotics (2) Parainfluenza virus infection: Assessment and Plan: Viral culture positive for parainfluenza, most likely virus causing his symptoms last week, CT of the chest showed no active pneumonia, currently asymptomatic. In precautions. (3) Swelling of joint, knee, right: Assessment and Plan: Ortho did see patient last night and felt less likely septic joint. Could be Acute gout or pseudogout but awaiting crystal analysis. Was on prednisone prior to uric acid level drawn. Elevated ESR and CRP. But now with staph Bacteremia, presume septic joint more probable and this was not resulted last night when ortho did consult. awaiting culture results from fluid. continue with Zosyn and Vanco today, add JAIDA wrap for compression, elevation and ice. Continue pain control with Toradol. (4) Leukocytosis: Assessment and Plan: present but improving. 12.2 Qualifiers: Leukocytosis type: unspecified Qualified Code(s): D72.829 - Elevated white blood cell count, unspecified (5) Anxiety: Assessment and Plan: continue celexa (6) High cholesterol: Assessment and Plan: continue statin (7) Hypertension: Assessment and Plan: continue amlodipine. Qualifiers: Hypertension type: primary hypertension Qualified Code(s): I10 - Essential (primary) hypertension Plan Patient is a full code Patient is ambulatory Given new diagnosis of Bacteremia and worsening joint effusion today will need 1-2 more days of IV antibiotics and culture results.
[2024-04-23 10:09] LABS: Protein, Body Fluid 4.1 g/dL (.)
--- NOTE | 2024-04-23 10:44 | CM.NOTE ---
Rounds made with Dr. Hart, no discharge for pt today. Discussed positive blood cx, restart Antibiotics, Kwadwo wrap to knee and ice, get echo.
[2024-04-24] VITALS (62 sets, daily range): BP systolic 123–154; BP diastolic 70–84; PULSE 51–82; TEMP 36.3–36.9; O2SAT 93–98
[2024-04-24] MEDS: KETOROLAC TROMETHAMINE 30 MG/ML VIAL IVP (01:10)
[2024-04-24] MEDS: VANCOMYCIN HCL 1,250 MG in 0.9 % SODIUM CHLORIDE 250 ML 166.699999999999989 MG IV (01:10)
[2024-04-24] MEDS: PIPERACILLIN SODIUM/TAZOBACTAM 3.375 GM in 0.9 % SODIUM CHLORIDE 50 ML IV (05:14)
[2024-04-24 05:49] LABS: Basophils Percent Auto 0.3 % (0.2-2.0); Eosinophils Absolute Auto 0.1 10^3/uL (0.0-0.7); Eosinophils Percent Auto 0.5 % (0.9-7.0); Hematocrit 35.2 % (42.0-54.0); Hemoglobin 11.3 g/dL (14.0-18.0); Immature Granulocytes Abs Auto 0.18 10^3/uL (0.00-0.03); Immature Granulocytes Pct Auto 1.5 % (0.0-0.5); Lymphocytes Absolute Auto 1.2 10^3/uL (1.2-3.8); Lymphocytes Percent Auto 9.8 % (20.5-60.0); Mean Corpuscular HGB Conc 32.1 g/dL (29.9-35.2); Mean Corpuscular Hemoglobin 26.3 pg (25.9-34.0); Mean Corpuscular Volume 81.9 fL (80.0-94.0); Mean Platelet Volume 9.3 fL (9.5-13.5); Monocytes Absolute Auto 0.9 10^3/uL (0.3-0.8); Monocytes Percent Auto 7.1 % (1.7-12.0); Neutrophils Absolute Auto 9.6 10^3/uL (1.4-6.5); Neutrophils Percent Auto 80.8 % (43.0-75.0); Platelet Count 470 10^3/uL (150-450); Red Cell Distribution Width 14.9 % (11.0-15.0); White Blood Count 11.9 10^3/uL (4.0-11.0)
[2024-04-24 06:00] LABS: Alanine Aminotransferase 43 U/L (16-63); Albumin Globulin Ratio 0.6; Albumin Level 2.2 g/dL (3.4-5.0); Alkaline Phosphatase 86 U/L (46-116); Aspartate Amino Transferase 30 U/L (15-37); BUN Creatinine Ratio 13.6; Bilirubin Total 0.7 mg/dL (0.2-1.0); Calcium 8.2 mg/dL (8.5-10.1); Carbon Dioxide 26.3 mmol/L (21.0-32.0); Chloride 103 mmol/L (98-107); Estimated GFR (African America >60 (>=60); Estimated GFR (Non-African Ame >60 (>=60); Globulin 3.9 g/dL; Glucose 84 mg/dL (74-106); Potassium 4.3 mmol/L (3.5-5.1); Sodium 135 mmol/L (136-145); Total Protein 6.1 g/dL (6.4-8.2)
[2024-04-24] MEDS: LACTATED RINGER'S SOLUTION 1,000 ML 125 ML IV (06:30)
[2024-04-24] MEDS: ATORVASTATIN CALCIUM 20 MG TABLET PO (08:59)
[2024-04-24] MEDS: CITALOPRAM HYDROBROMIDE 20 MG TABLET 10 MG PO (08:59)
[2024-04-24] MEDS: AMLODIPINE BESYLATE 5 MG TABLET 10 MG PO (08:59)
--- NOTE | 2024-04-24 12:09 | CM.NOTE ---
Rounds made with Dr. Avila, no discharge today. Awaiting blood cultures and sensitivity prior to discharge.
--- NOTE | 2024-04-24 12:14 | PM.IMPN1 ---
Progress Note: A&P Assessment and Plan (1) Staphylococcus aureus bacteremia without sepsis: Assessment and Plan: Blood cultures positive for Staph aureus. Patient is currently on IV vancomycin. No need for Zosyn. Repeat blood cultures ordered. 2D echocardiogram ordered to rule out endocarditis. (2) Septic arthritis: Assessment and Plan: Fluid analysis is positive for Staph aureus. Orthopedic surgery will take patient to the OR for joint washout. Continue with IV vancomycin. Follow-up final sensitivities. Qualifiers: Septic arthritis location: knee Septic arthritis organism: staphylococcal Laterality: right Qualified Code(s): M00.061 - Staphylococcal arthritis, right knee (3) Parainfluenza virus infection: Assessment and Plan: Asymptomatic. No respiratory symptoms. Monitor. (4) Swelling of joint, knee, right: Assessment and Plan: Due to septic arthritis. Continue with IV vancomycin. Will go to ER for joint washout (5) Leukocytosis: Assessment and Plan: Due to septic arthritis. Monitor. Qualifiers: Leukocytosis type: unspecified Qualified Code(s): D72.829 - Elevated white blood cell count, unspecified (6) Anxiety: Assessment and Plan: Continue with citalopram (7) High cholesterol: Assessment and Plan: Continue with Lipitor (8) Hypertension: Assessment and Plan: At goal. Continue with amlodipine Qualifiers: Hypertension type: primary hypertension Qualified Code(s): I10 - Essential (primary) hypertension Internal Medicine - PN: Subj Subjective Interval history: Seen and examined. No overnight events. Has mild right knee swelling and pain. Otherwise no active complaints to offer. Exam Constitutional Vital Signs, click to edit/add: Last Vital Signs Temp 97.4 F L 04/24/24 08:00 Pulse 67 04/24/24 12:00 Resp 16 04/24/24 08:00 BP 133/78 04/24/24 08:00 Pulse Ox 98 04/24/24 11:26 O2 Del Method Room Air 04/24/24 11:26 Documenting provider has reviewed patient's vital signs: yes Common normals: no apparent distress and oriented x3 General appearance: cooperative Respiratory Common normals: normal respiratory effort and clear to auscultation bilaterally Effort & inspection: able to speak in complete sentences Auscultation: clear to auscultation bilaterally Cardio Common normals: regular rate, S1 normal heart sound and S2 normal heart sound Rate: regular rate Heart sounds: S1 normal and S2 normal Extremity Common normals: no clubbing, cyanosis or edema Right lower extremity: knee joint Right knee: inspection (SWELLING), palpation (EFFUSION) and ROM (Normal) Neuro Common normals: oriented x3, moves all extremities and no focal motor deficits Psych Common normals: mental status grossly normal, denies hallucinations, denies homicidal ideation and denies suicidal ideation Internal Medicine - PN: Obj Da Labs Labs: Laboratory Results - last 24 hr 04/24/24 04:50 WBC 11.9 H RBC 4.30 L Hgb 11.3 L Hct 35.2 L MCV 81.9 MCH 26.3 MCHC 32.1 RDW 14.9 Plt Count 470 H MPV 9.3 L Neut % (Auto) 80.8 H Lymph % (Auto) 9.8 L [place] % (Auto) 7.1 Eos % (Auto) 0.5 L Baso % (Auto) 0.3 Neut # (Auto) 9.6 H Lymph # (Auto) 1.2 [place] # (Auto) 0.9 H Eos # (Auto) 0.1 Baso # (Auto) 0.0 Abs Immat Gran (auto) 0.18 H Imm/Tot Granulo (auto) 1.5 H Sodium 135 L Potassium 4.3 Chloride 103 Carbon Dioxide 26.3 Anion Gap 10.0 BUN 12.0 Creatinine 0.88 Est GFR ( Amer) >60 Est GFR (Non-Af Amer) >60 BUN/Creatinine Ratio 13.6 Glucose 84 Calcium 8.2 L Total Bilirubin 0.7 AST 30 ALT 43 Alkaline Phosphatase 86 Total Protein 6.1 L Albumin 2.2 L Globulin 3.9 Albumin/Globulin Ratio 0.6
[2024-04-24] MEDS: VANCOMYCIN HCL 1,250 MG in 0.9 % SODIUM CHLORIDE 250 ML 166.667000000000002 MG IV (12:30)
[2024-04-24] MEDS: LACTATED RINGER'S SOLUTION 1,000 ML 50 ML IV (14:20)
[2024-04-24] MEDS: FAMOTIDINE/PF 20 MG/2 ML VIAL IV (15:08)
--- NOTE | 2024-04-24 15:25 | PM.ORPN ---
Progress Note: A&P Assessment and Plan (1) Staphylococcus aureus bacteremia without sepsis: (2) Septic arthritis: Assessment and Plan: Knee aspirate positive for light growth of Staph aureus. I have recommended a right knee arthroscopic irrigation and debridement for septic arthritis. Have discussed risks of surgery including but not limited to persistent pain, progression of arthritis, osteomyelitis, need for additional procedures as well as additional risks and the informed consent process. He understands the risks and benefits of this procedure and has elected to proceed. Qualifiers: Septic arthritis location: knee Septic arthritis organism: staphylococcal Laterality: right Qualified Code(s): M00.061 - Staphylococcal arthritis, right knee (3) Parainfluenza virus infection: (4) Swelling of joint, knee, right: (5) Leukocytosis: Qualifiers: Leukocytosis type: unspecified Qualified Code(s): D72.829 - Elevated white blood cell count, unspecified (6) Anxiety: (7) High cholesterol: (8) Hypertension: Qualifiers: Hypertension type: primary hypertension Qualified Code(s): I10 - Essential (primary) hypertension Subjective Subjective Interval history: Knee pain increased today Exam Narrative Exam Narrative: Right knee increased effusion. No erythema or warmth. Mild pain with range of motion. Constitutional Vital Signs, click to edit/add: Last Vital Signs Temp 98.1 F 04/24/24 14:00 Pulse 72 04/24/24 14:00 Resp 18 04/24/24 14:00 BP 131/82 04/24/24 14:00 Pulse Ox 98 04/24/24 14:00 O2 Del Method Room Air 04/24/24 14:00
--- NOTE | 2024-04-24 16:11 | PC.NURSE ---
tourniquet applied but not used
[2024-04-24] MEDS: LACTATED RINGER'S SOLUTION 1,000 ML 75 ML IV (16:25)
[2024-04-24 16:37] LABS: Uric Acid 3.8 mg/dL (3.5-7.2)
--- NOTE | 2024-04-24 16:54 | PM.ORPRC ---
Procedure Note Date of procedure: 04/24/24 Pre-op diagnosis: Septic right knee Post-op diagnosis: same as pre-op Procedure: Operative procedure: 1. Arthroscopic irrigation and debridement right knee 2. Partial medial meniscectomy Operation: After informed consent was obtained the patient was brought to the operating room where a general anesthetic was administered. A well-padded proximal thigh tourniquet was placed but not inflated for the procedure. The right leg was prepped and draped in usual sterile fashion. Arthroscopy portal lateral to the patellar tendon was first created and 15 mL yellow fluid was drained from the knee. The fluid was not purulent and also not clear. It was slightly cloudy. Arthroscopy was performed in the patellofemoral compartment there was a mild amount of synovitis. 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 Medial gutter had synovitis. In the medial compartment there was a radial tear posterior horn of the medial meniscus which was debrided with arthroscopic biters and shaver back to stable edge. A 20% meniscectomy was performed. Diffuse grade II chondromalacia medial compartment. Mild synovitis within the notch and fat pad. Lateral compartment meniscus was intact. Diffuse grade 3 and grade IV chondromalacia lateral tibial plateau. Diffuse grade II and III chondromalacia lateral femoral condyle. Lateral gutter had mild synovitis. [place] was used for tissue biopsies of the synovitis and fat pad. This was sent for Gram stain, aerobic and anaerobic cultures. Next a shaver was used to perform a synovectomy throughout the knee and hemostasis was achieved with cautery. A ARASH drain was placed in the superior lateral border of the knee. Knee joint was drained of arthroscopy fluid and portals were closed with a nylon suture. Sterile dressing was placed. Patient was awakened and brought to the recovery room in stable condition. There were no intraoperative or immediate postoperative complications. Anesthesia: General-LMA Surgeon: Howie Latham Estimated blood loss (mL): 15 Pathology: other (For crystal analysis and cell count. Tissue culture for Gram stain, aerobic and anaerobic cultures) Condition: stable Disposition: PACU
[2024-04-24] MEDS: OXYCODONE HCL/ACETAMINOPHEN 5MG/325MG 1 TAB PO ×2 (17:42→22:44)
[2024-04-24] MEDS: 0.9 % SODIUM CHLORIDE 250 ML 10 ML IV (17:53)
[2024-04-24] MEDS: CEFAZOLIN SODIUM/DEXTROSE,ISO 2 GM/50 ML PIGGYBACK IV (17:53)
[2024-04-25] VITALS (9 sets, daily range): BP systolic 128–133; BP diastolic 76–81; PULSE 60–76; TEMP 36.6–36.9; O2SAT 94–95
[2024-04-25] MEDS: CEFAZOLIN SODIUM/DEXTROSE,ISO 2 GM/50 ML PIGGYBACK IV ×2 (01:26→09:07)
[2024-04-25 04:54] LABS: Basophils Percent Auto 0.3 % (0.2-2.0); Eosinophils Absolute Auto 0.1 10^3/uL (0.0-0.7); Eosinophils Percent Auto 0.6 % (0.9-7.0); Hemoglobin 11.9 g/dL (14.0-18.0); Immature Granulocytes Abs Auto 0.14 10^3/uL (0.00-0.03); Immature Granulocytes Pct Auto 1.4 % (0.0-0.5); Lymphocytes Percent Auto 9.8 % (20.5-60.0); Mean Corpuscular HGB Conc 32.2 g/dL (29.9-35.2); Mean Corpuscular Hemoglobin 26.2 pg (25.9-34.0); Mean Corpuscular Volume 81.5 fL (80.0-94.0); Mean Platelet Volume 8.3 fL (9.5-13.5); Monocytes Absolute Auto 0.8 10^3/uL (0.3-0.8); Monocytes Percent Auto 8.5 % (1.7-12.0); Neutrophils Absolute Auto 7.9 10^3/uL (1.4-6.5); Neutrophils Percent Auto 79.4 % (43.0-75.0); Platelet Count 568 10^3/uL (150-450); Red Blood Count 4.54 10^6/uL (4.70-6.10); Red Cell Distribution Width 14.7 % (11.0-15.0); White Blood Count 9.9 10^3/uL (4.0-11.0)
[2024-04-25] MEDS: OXYCODONE HCL/ACETAMINOPHEN 5MG/325MG 1 TAB PO ×4 (04:58→20:42)
[2024-04-25 05:12] LABS: Alanine Aminotransferase 34 U/L (16-63); Albumin Globulin Ratio 0.5; Albumin Level 2.1 g/dL (3.4-5.0); Alkaline Phosphatase 84 U/L (46-116); Anion Gap 8.6; Aspartate Amino Transferase 19 U/L (15-37); BUN Creatinine Ratio 11.2; Bilirubin Total 0.5 mg/dL (0.2-1.0); Calcium 8.1 mg/dL (8.5-10.1); Carbon Dioxide 28.5 mmol/L (21.0-32.0); Chloride 102 mmol/L (98-107); Estimated GFR (African America >60 (>=60); Estimated GFR (Non-African Ame >60 (>=60); Glucose 91 mg/dL (74-106); Potassium 4.1 mmol/L (3.5-5.1); Sodium 135 mmol/L (136-145); Total Protein 6.1 g/dL (6.4-8.2)
[2024-04-25] MEDS: CITALOPRAM HYDROBROMIDE 20 MG TABLET 10 MG PO (08:24)
[2024-04-25] MEDS: ATORVASTATIN CALCIUM 20 MG TABLET PO (08:24)
[2024-04-25] MEDS: AMLODIPINE BESYLATE 5 MG TABLET 10 MG PO (08:24)
--- NOTE | 2024-04-25 10:25 | P.IMPN_ITS ---
Progress Note: A&P Assessment and Plan (1) Staphylococcus aureus bacteremia without sepsis: Assessment and Plan: MSSA bacteremia - cefazolin. Follow up cultures 04/24/24 -pending. No evidence of endocarditis on ECHO. (2) Septic arthritis: Assessment and Plan: S/p arthroscopic joint irrigation and washout. ARASH drain in place. Pain controlled. Further care as per orthopedic surgery. Qualifiers: Septic arthritis location: knee Septic arthritis organism: staphylococcal Laterality: right Qualified Code(s): M00.061 - Staphylococcal arthritis, right knee (3) Parainfluenza virus infection: Assessment and Plan: Asymptomatic. No respiratory symptoms. Monitor. (4) Swelling of joint, knee, right: Assessment and Plan: Due to septic arthritis. Continue with IV cefazolin (5) Leukocytosis: Assessment and Plan: Due to septic arthritis. Monitor. Qualifiers: Leukocytosis type: unspecified Qualified Code(s): D72.829 - Elevated white blood cell count, unspecified (6) Anxiety: Assessment and Plan: Continue with citalopram (7) High cholesterol: Assessment and Plan: Continue with Lipitor (8) Hypertension: Assessment and Plan: At goal. Continue with amlodipine Qualifiers: Hypertension type: primary hypertension Qualified Code(s): I10 - Essential (primary) hypertension Internal Medicine - PN: Subj Subjective Interval history: Seen and examined. No overnight events. s/p knee arthroscopy. Has ARASH drain in place. Pain is controlled. Exam Constitutional Vital Signs, click to edit/add: Last Vital Signs Temp 98.4 F 04/25/24 05:01 Pulse 64 04/25/24 09:54 Resp 18 04/25/24 05:01 BP 133/78 04/25/24 05:01 Pulse Ox 95 04/25/24 05:01 O2 Del Method Room Air 04/25/24 05:01 Documenting provider has reviewed patient's vital signs: yes Common normals: no apparent distress and oriented x3 General appearance: cooperative Respiratory Common normals: normal respiratory effort and clear to auscultation bilaterally Effort & inspection: able to speak in complete sentences Auscultation: clear to auscultation bilaterally Cardio Common normals: regular rate, S1 normal heart sound and S2 normal heart sound Rate: regular rate Heart sounds: S1 normal and S2 normal Extremity Common normals: no clubbing, cyanosis or edema Right lower extremity: knee joint (post op dressing, ARASH drain in place) Neuro Common normals: oriented x3, moves all extremities and no focal motor deficits Psych Common normals: mental status grossly normal, denies hallucinations, denies homicidal ideation and denies suicidal ideation Internal Medicine - PN: Obj Da Labs Labs: Laboratory Results - last 24 hr 04/24/24 04/25/24 04:50 04:31 WBC 9.9 RBC 4.54 L Hgb 11.9 L Hct 37.0 L MCV 81.5 MCH 26.2 MCHC 32.2 RDW 14.7 Plt Count 568 H MPV 8.3 L Neut % (Auto) 79.4 H Lymph % (Auto) 9.8 L [place] % (Auto) 8.5 Eos % (Auto) 0.6 L Baso % (Auto) 0.3 Neut # (Auto) 7.9 H Lymph # (Auto) 1.0 L [place] # (Auto) 0.8 Eos # (Auto) 0.1 Baso # (Auto) 0.0 Abs Immat Gran (auto) 0.14 H Imm/Tot Granulo (auto) 1.4 H Sodium 135 L Potassium 4.1 Chloride 102 Carbon Dioxide 28.5 Anion Gap 8.6 BUN 10.0 Creatinine 0.89 Est GFR ( Amer) >60 Est GFR (Non-Af Amer) >60 BUN/Creatinine Ratio 11.2 Glucose 91 Uric Acid 3.8 Calcium 8.1 L Total Bilirubin 0.5 AST 19 ALT 34 Alkaline Phosphatase 84 Total Protein 6.1 L Albumin 2.1 L Globulin 4.0 Albumin/Globulin Ratio 0.5
--- NOTE | 2024-04-25 10:54 | PM.ORPN ---
Progress Note: A&P Assessment and Plan (1) Staphylococcus aureus bacteremia without sepsis: Assessment and Plan: POD #1 R Knee Arthroscopic I/D, Partial Medial Meniscectomy - Ancef will be changed to Rocephin given Micro susceptibilities. Cultures taken during surgery are pending. - WBC 9.9 this am trending down from 11.9 yesterday - Pt afebrile overnight - Drain with 90ml in 12hrs overnight, 130ml total since surgery. Will maintain drain for now. - Will continue to follow, plan will be for PICC line on Saturday to continue abx once discharged. (2) Septic arthritis: Qualifiers: Septic arthritis location: knee Septic arthritis organism: staphylococcal Laterality: right Qualified Code(s): M00.061 - Staphylococcal arthritis, right knee (3) Swelling of joint, knee, right: (4) Leukocytosis: Assessment and Plan: Resolved. - WBC trending down to 9.9 from 11.9 yesterday, - Abx as above. Qualifiers: Leukocytosis type: unspecified Qualified Code(s): D72.829 - Elevated white blood cell count, unspecified Subjective Subjective Principal diagnosis: Right Septic Knee Interval history: Patient is POD #1 from R Knee Arthroscopy with I&D, Partial Medial Meniscectomy and is doing well. Pt states that pain was controlled overnight. No further complaints or issues. Exam Constitutional Vital Signs, click to edit/add: Last Vital Signs Temp 98.4 F 04/25/24 05:01 Pulse 64 04/25/24 09:54 Resp 18 04/25/24 05:01 BP 133/78 04/25/24 05:01 Pulse Ox 95 04/25/24 05:01 O2 Del Method Room Air 04/25/24 05:01 Extremity Common normals: no calf tenderness and no pedal edema Left lower extremity: knee joint Left knee: inspection (Knee effusion), palpation, ROM (Decreased flexion), neurovascular exam (Intact, 5/5 strength DP/PF) and other (ARASH drain in place R Superolateral Knee) Other: Surgical incisions R inferior medial and lateral knee with sutures in place, no erythema or drainage present on exam of incisions, dressing c/d/i
--- NOTE | 2024-04-25 11:27 | PC.NURSE ---
[facility] called for need for PICC line. Will await return call.
[2024-04-25] MEDS: CEFTRIAXONE 1,000 MG in 0.9 % SODIUM CHLORIDE 50 ML 100 MG IV (11:37)
[2024-04-26] MEDS: OXYCODONE HCL/ACETAMINOPHEN 5MG/325MG 1 TAB PO ×5 (01:19→20:32)
[2024-04-26 05:05] VITALS: BP 129/78; PULSE 58; TEMP 36.5; O2SAT 96
[2024-04-26 05:36] LABS: Basophils Percent Auto 0.3 % (0.2-2.0); Eosinophils Absolute Auto 0.1 10^3/uL (0.0-0.7); Eosinophils Percent Auto 1.3 % (0.9-7.0); Hematocrit 35.6 % (42.0-54.0); Hemoglobin 11.3 g/dL (14.0-18.0); Immature Granulocytes Abs Auto 0.13 10^3/uL (0.00-0.03); Immature Granulocytes Pct Auto 1.4 % (0.0-0.5); Lymphocytes Percent Auto 10.7 % (20.5-60.0); Mean Corpuscular HGB Conc 31.7 g/dL (29.9-35.2); Mean Corpuscular Hemoglobin 25.7 pg (25.9-34.0); Mean Corpuscular Volume 81.1 fL (80.0-94.0); Mean Platelet Volume 8.5 fL (9.5-13.5); Monocytes Absolute Auto 0.7 10^3/uL (0.3-0.8); Monocytes Percent Auto 7.7 % (1.7-12.0); Neutrophils Absolute Auto 7.1 10^3/uL (1.4-6.5); Neutrophils Percent Auto 78.6 % (43.0-75.0); Platelet Count 567 10^3/uL (150-450); Red Blood Count 4.39 10^6/uL (4.70-6.10); Red Cell Distribution Width 14.5 % (11.0-15.0)
[2024-04-26 05:53] LABS: Alanine Aminotransferase 29 U/L (16-63); Albumin Globulin Ratio 0.5; Alkaline Phosphatase 84 U/L (46-116); Anion Gap 7.1; Aspartate Amino Transferase 17 U/L (15-37); BUN Creatinine Ratio 10.5; Bilirubin Total 0.6 mg/dL (0.2-1.0); Calcium 8.3 mg/dL (8.5-10.1); Carbon Dioxide 29.1 mmol/L (21.0-32.0); Chloride 102 mmol/L (98-107); Estimated GFR (African America >60 (>=60); Estimated GFR (Non-African Ame >60 (>=60); Globulin 4.2 g/dL; Glucose 93 mg/dL (74-106); Potassium 4.2 mmol/L (3.5-5.1); Sodium 134 mmol/L (136-145); Total Protein 6.2 g/dL (6.4-8.2)
[2024-04-26] MEDS: ATORVASTATIN CALCIUM 20 MG TABLET PO (08:47)
[2024-04-26] MEDS: CITALOPRAM HYDROBROMIDE 20 MG TABLET 10 MG PO (08:47)
[2024-04-26] MEDS: AMLODIPINE BESYLATE 5 MG TABLET 10 MG PO (08:47)
--- NOTE | 2024-04-26 10:45 | P.IMPN_ITS ---
Progress Note: A&P Assessment and Plan (1) Staphylococcus aureus bacteremia without sepsis: Assessment and Plan: MSSA bacteremia - cefazolin. Follow up cultures 04/24/24 -pending. No evidence of endocarditis on ECHO. Switched to rocephin for ease of administration as its once daily dosing. (2) Septic arthritis: Assessment and Plan: S/p arthroscopic joint irrigation and washout. ARASH drain in place. Pain controlled. Further care as per orthopedic surgery. Will need 4-6 weeks of IV abx. PICC line insterted. Will need to set up home infusion of daily abx administration. Qualifiers: Septic arthritis location: knee Septic arthritis organism: staphylococcal Laterality: right Qualified Code(s): M00.061 - Staphylococcal arthritis, right knee (3) Swelling of joint, knee, right: Assessment and Plan: Due to septic arthritis. Switched to rocephin for ease of administration Pt will need 4-6 of IV abx. (4) Leukocytosis: Assessment and Plan: Due to septic arthritis. Monitor. Qualifiers: Leukocytosis type: unspecified Qualified Code(s): D72.829 - Elevated white blood cell count, unspecified (5) Parainfluenza virus infection: Assessment and Plan: Asymptomatic. No respiratory symptoms. Monitor. (6) Anxiety: Assessment and Plan: Continue with citalopram (7) High cholesterol: Assessment and Plan: Continue with Lipitor (8) Hypertension: Assessment and Plan: At goal. Continue with amlodipine Qualifiers: Hypertension type: primary hypertension Qualified Code(s): I10 - Essential (primary) hypertension Plan Awaiting final report of repeat blood cultures. On IV rocephin. Will need to set him up for outpatient home infusion of IV rocephin for 4-6 weeks. Internal Medicine - PN: Subj Subjective Interval history: Seen and examined. No overnight events. PICC line inserted. Pain is well controlled Exam Constitutional Vital Signs, click to edit/add: Last Vital Signs Temp 97.7 F 04/26/24 05:05 Pulse 58 L 04/26/24 05:05 Resp 16 04/26/24 05:05 BP 129/78 04/26/24 05:05 Pulse Ox 96 04/26/24 05:05 O2 Del Method Room Air 04/26/24 05:05 Documenting provider has reviewed patient's vital signs: yes Common normals: no apparent distress and oriented x3 General appearance: cooperative Respiratory Common normals: normal respiratory effort and clear to auscultation bilaterally Effort & inspection: able to speak in complete sentences Auscultation: clear to auscultation bilaterally Cardio Common normals: regular rate, S1 normal heart sound and S2 normal heart sound Rate: regular rate Heart sounds: S1 normal and S2 normal Extremity Common normals: no clubbing, cyanosis or edema Right lower extremity: knee joint (post op dressing, ARASH drain in place) Internal Medicine - PN: Obj Da Labs Labs: Laboratory Results - last 24 hr 04/26/24 04:57 WBC 9.0 RBC 4.39 L Hgb 11.3 L Hct 35.6 L MCV 81.1 MCH 25.7 L MCHC 31.7 RDW 14.5 Plt Count 567 H MPV 8.5 L Neut % (Auto) 78.6 H Lymph % (Auto) 10.7 L [place] % (Auto) 7.7 Eos % (Auto) 1.3 Baso % (Auto) 0.3 Neut # (Auto) 7.1 H Lymph # (Auto) 1.0 L [place] # (Auto) 0.7 Eos # (Auto) 0.1 Baso # (Auto) 0.0 Abs Immat Gran (auto) 0.13 H Imm/Tot Granulo (auto) 1.4 H Sodium 134 L Potassium 4.2 Chloride 102 Carbon Dioxide 29.1 Anion Gap 7.1 BUN 9.0 Creatinine 0.86 Est GFR ( Amer) >60 Est GFR (Non-Af Amer) >60 BUN/Creatinine Ratio 10.5 Glucose 93 Calcium 8.3 L Total Bilirubin 0.6 AST 17 ALT 29 Alkaline Phosphatase 84 Total Protein 6.2 L Albumin 2.0 L Globulin 4.2 Albumin/Globulin Ratio 0.5
[2024-04-26] MEDS: CEFTRIAXONE 1,000 MG in 0.9 % SODIUM CHLORIDE 50 ML 100 MG IV (11:21)
[2024-04-26] MEDS: 0.9 % SODIUM CHLORIDE 250 ML 10 ML IV (11:21)
--- NOTE | 2024-04-26 11:28 | P.ORPN_ITS ---
Progress Note: A&P Assessment and Plan (1) Staphylococcus aureus bacteremia without sepsis: Assessment and Plan: POD #2 R Knee I&D with medial meniscectomy - Synovial fluid from R Knee 04/24 (+) for staph aureus-Ancef started originally, changed to Rocephin on 04/25 2/ culture sensitivities. - PICC line in place - Rocephin q24hrs - WBAT - WBC 9 from 9.9 yesterday, afebrile overnight. - Drain with 115ml out in 12hrs, 145 total yesterday 04/25, keep drain today, will likely be able to remove tomorrow for discharge. - Recommended no travel given he is on IV antibiotics, pt voiced understanding. (2) Septic arthritis: Qualifiers: Septic arthritis location: knee Septic arthritis organism: staphylococcal Laterality: right Qualified Code(s): M00.061 - Staphylococcal arthritis, right knee (3) Swelling of joint, knee, right: Subjective Subjective Principal diagnosis: R Septic Knee Interval history: Patient is POD#2 from R Knee I&D, with medial meniscectomy. Patient is doing good overall. He is ambulating without much pain with a cane. His pain is controlled with PO medications, he just feels a sharp pain where the drain is located. He did get his PICC line placed yesterday. He is supposed to fly to [place] this upcoming weekend and was asking about travel and also a return to running timeframe. Exam Narrative Exam Narrative: On exam patient is in no distress sitting in the hospital chair, is age appropriate, and alert and oriented x 3. R knee ROM is limited in flexion and extension. Patient is non tender on palpation. There is a moderate joint effusion present. There is a ARASH drain present superolateral on the R knee with ss fluid present in drain, dressing is c/d/i. Constitutional Vital Signs, click to edit/add: Last Vital Signs Temp 97.7 F 04/26/24 05:05 Pulse 58 L 04/26/24 05:05 Resp 16 04/26/24 05:05 BP 129/78 04/26/24 05:05 Pulse Ox 96 04/26/24 05:05 O2 Del Method Room Air 04/26/24 05:05
[2024-04-26 15:55] VITALS: BP 142/82; PULSE 56; TEMP 36.4; O2SAT 98
[2024-04-26 20:35] VITALS: BP 138/79; PULSE 57; TEMP 36.7; O2SAT 97
[2024-04-27] MEDS: OXYCODONE HCL/ACETAMINOPHEN 5MG/325MG 2 TAB PO (01:46)
[2024-04-27 05:23] LABS: Basophils Percent Auto 0.4 % (0.2-2.0); Eosinophils Absolute Auto 0.1 10^3/uL (0.0-0.7); Eosinophils Percent Auto 1.2 % (0.9-7.0); Hematocrit 35.9 % (42.0-54.0); Hemoglobin 11.4 g/dL (14.0-18.0); Immature Granulocytes Abs Auto 0.16 10^3/uL (0.00-0.03); Lymphocytes Absolute Auto 1.1 10^3/uL (1.2-3.8); Lymphocytes Percent Auto 13.5 % (20.5-60.0); Mean Corpuscular HGB Conc 31.8 g/dL (29.9-35.2); Mean Corpuscular Hemoglobin 26.1 pg (25.9-34.0); Mean Corpuscular Volume 82.2 fL (80.0-94.0); Mean Platelet Volume 8.2 fL (9.5-13.5); Monocytes Absolute Auto 0.7 10^3/uL (0.3-0.8); Monocytes Percent Auto 8.8 % (1.7-12.0); Neutrophils Percent Auto 74.1 % (43.0-75.0); Platelet Count 561 10^3/uL (150-450); Red Blood Count 4.37 10^6/uL (4.70-6.10); Red Cell Distribution Width 14.4 % (11.0-15.0); White Blood Count 8.2 10^3/uL (4.0-11.0)
[2024-04-27 05:52] LABS: Alanine Aminotransferase 29 U/L (16-63); Albumin Globulin Ratio 0.5; Albumin Level 2.1 g/dL (3.4-5.0); Alkaline Phosphatase 89 U/L (46-116); Anion Gap 9.7; Aspartate Amino Transferase 19 U/L (15-37); BUN Creatinine Ratio 12.9; Bilirubin Total 0.4 mg/dL (0.2-1.0); Calcium 8.7 mg/dL (8.5-10.1); Carbon Dioxide 29.6 mmol/L (21.0-32.0); Chloride 102 mmol/L (98-107); Estimated GFR (African America >60 (>=60); Estimated GFR (Non-African Ame >60 (>=60); Globulin 4.2 g/dL; Glucose 95 mg/dL (74-106); Potassium 4.3 mmol/L (3.5-5.1); Sodium 137 mmol/L (136-145); Total Protein 6.3 g/dL (6.4-8.2)
--- NOTE | 2024-04-27 07:01 | PM.ORPN ---
Progress Note: A&P Assessment and Plan (1) Staphylococcus aureus bacteremia without sepsis: Assessment and Plan: POD #3 R Knee Arthrocopic I&D, partial medial meniscectomy - Drain 90ml output in 12 hrs yesterday, drain removed. Pt tolerated well. - Rocephin, PICC line in place for discharge, cultures from surgery still pending. - WBAT - WBC 8.2, afebrile - Follow up outpatient with Dr Latham, will call patient. (2) Septic arthritis: Qualifiers: Septic arthritis location: knee Septic arthritis organism: staphylococcal Laterality: right Qualified Code(s): M00.061 - Staphylococcal arthritis, right knee (3) Swelling of joint, knee, right: Subjective Subjective Principal diagnosis: R Knee Septic Arthritis Interval history: Patient is POD #3 from R Knee Arthroscopic I&D, he did well overnight. Pt states that pain is controlled and he didn't have to take any pain medications. The drain seems to be bothering him the most. Exam Constitutional Vital Signs, click to edit/add: Last Vital Signs Temp 98.0 F 04/26/24 20:35 Pulse 57 L 04/26/24 20:35 Resp 18 04/26/24 20:35 BP 138/79 04/26/24 20:35 Pulse Ox 97 04/26/24 20:35 O2 Del Method Room Air 04/26/24 20:35 Extremity Other: On exam patient is in no distress, laying in the hospital bed, alert and oriented. Surgical incisions with sutures inferior to the R Knee with no erythema or drainage. The drain superolateral has some straw colored drainage from the site with ss fluid in the drain bulb. No signs of erythema. Full extension of R knee is exhibited with limited flexion to approximately 45 degrees. Joint effusion present, but appears to be decreasing.
[2024-04-27 08:00] VITALS: BP 125/76; PULSE 55; TEMP 36.4; O2SAT 97
--- NOTE | 2024-04-27 08:39 | CM.NOTE ---
Talked with pt regarding IV antibiotics needed at discharge. Discussed options of [facility] daily for IV antibiotic vs HH services for home antibiotic therapy. Pt unsure at this time, he wishes to speak with his . SW or Case management to follow up with pt for discharge planning.
[2024-04-27] MEDS: AMLODIPINE BESYLATE 5 MG TABLET 10 MG PO (08:40)
[2024-04-27] MEDS: CITALOPRAM HYDROBROMIDE 20 MG TABLET 10 MG PO (08:40)
[2024-04-27] MEDS: ATORVASTATIN CALCIUM 20 MG TABLET PO (08:40)
[2024-04-27] MEDS: OXYCODONE HCL/ACETAMINOPHEN 5MG/325MG 1 TAB PO (08:40)
--- NOTE | 2024-04-27 10:00 | PM.DS1 ---
DS: Providers Provider Date of admission: 04/22/24 14:37 Primary care physician: DALIA CÁRDENAS Admitting clinician: María Hart Attending physician on admission: María Hart Consults: 04/22/24 13:52 Physical Therapy Eval and Treat Routine Reason for consultation: knee swelling/pain Has provider been notified: No 04/22/24 15:49 Consult to Orthopedic Surgery Routine Consulting Provider: Howie Latham Reason For Exam: Reason for consultation: right joint effusion/septic joint Has provider been notified: No Attending physician on discharge: Shaikh Austin Discharging clinician: Shaikh Austin Anticipated date of discharge: 04/27/24 DS: Diagnosis Discharge Diagnosis (1) Staphylococcus aureus bacteremia without sepsis: Assessment and plan: Secondary to septic arthritis. MSSA bacteremia. IV Rocephin. Will need outpatient IV antibiotic therapy for a total of 6 weeks. (2) Septic arthritis: Assessment and plan: Septic arthritis secondary to MSSA. Status post arthroscopic irrigation and joint washout. Will need IV antibiotics for a total of 6 weeks. Will set patient up for outpatient daily IV Rocephin. Qualifiers: Septic arthritis location: knee Septic arthritis organism: staphylococcal Laterality: right Qualified Code(s): M00.061 - Staphylococcal arthritis, right knee (3) Swelling of joint, knee, right: Assessment and plan: Due to septic arthritis. (4) High cholesterol: Assessment and plan: Continue with Lipitor. (5) Hypertension: Assessment and plan: Continue with amlodipine. Qualifiers: Hypertension type: primary hypertension Qualified Code(s): I10 - Essential (primary) hypertension DS: Summary Hospital Course Hospital Course: 54-year-old male presented with right knee swelling/erythema and pain. Based on clinical impression, patient was treated for septic arthritis. His blood cultures were positive for MSSA for which he was switched over from vancomycin to IV cefazolin and then later on to IV Rocephin for ease of administration. Repeat blood cultures drawn were negative. Echocardiogram is negative for any valvular vegetation. He was taken to the OR for arthroscopic irrigation and joint washout after his synovial fluid was also positive for MSSA. Patient will need 6 weeks of total IV antibiotic for septic arthritis. We will set him up for outpatient daily infusion with IV Rocephin. He will need follow-up with orthopedic surgery and PCP Status at Discharge Functional status at discharge: independent ambulation Overall status at discharge: patient is progressing back to baseline Time Spent with Patient Time attestation: Total time spent providing and/or coordinating discharge services: Exam Constitutional Vital Signs, click to edit/add: Last Vital Signs Temp 97.5 F L 04/27/24 08:00 Pulse 55 L 04/27/24 08:00 Resp 16 04/27/24 08:00 BP 125/76 04/27/24 08:00 Pulse Ox 97 04/27/24 08:00 O2 Del Method Room Air 04/27/24 08:00 Documenting provider has reviewed patient's vital signs: yes Common normals: no apparent distress and oriented x3 General appearance: cooperative Respiratory Common normals: normal respiratory effort and clear to auscultation bilaterally Effort & inspection: able to speak in complete sentences Auscultation: clear to auscultation bilaterally Cardio Common normals: regular rate, S1 normal heart sound and S2 normal heart sound Rate: regular rate Heart sounds: S1 normal and S2 normal Extremity Common normals: no clubbing, cyanosis or edema Right lower extremity: knee joint (ARASH drain removed. ) DS: Data Data Completed and Pending Labs on day of discharge: Labs from last 24 hours 04/27/24 05:10 WBC 8.2 RBC 4.37 L Hgb 11.4 L Hct 35.9 L MCV 82.2 MCH 26.1 MCHC 31.8 RDW 14.4 Plt Count 561 H MPV 8.2 L Neut % (Auto) 74.1 Lymph % (Auto) 13.5 L Gila % (Auto) 8.8 Eos % (Auto) 1.2 Baso % (Auto) 0.4 Neut # (Auto) 6.0 Lymph # (Auto) 1.1 L Gila # (Auto) 0.7 Eos # (Auto) 0.1 Baso # (Auto) 0.0 Abs Immat Gran (auto) 0.16 H Imm/Tot Granulo (auto) 2.0 H Sodium 137 Potassium 4.3 Chloride 102 Carbon Dioxide 29.6 Anion Gap 9.7 BUN 12.0 Creatinine 0.93 Est GFR ( Amer) >60 Est GFR (Non-Af Amer) >60 BUN/Creatinine Ratio 12.9 Glucose 95 Calcium 8.7 Total Bilirubin 0.4 AST 19 ALT 29 Alkaline Phosphatase 89 Total Protein 6.3 L Albumin 2.1 L Globulin 4.2 Albumin/Globulin Ratio 0.5 Preliminary micro results at discharge 04/24/24 16:00 Tissue Culture - Preliminary Knee,Right 04/24/24 09:22 Blood Culture Result 1 - Preliminary Blood NO GROWTH AT 36-48 HOURS. FINAL TO FOLLOW. 04/24/24 09:14 Blood Culture Result 1 - Preliminary Blood NO GROWTH AT 36-48 HOURS. FINAL TO FOLLOW. 04/24/24 16:00 - Preliminary Knee,Right 04/22/24 10:41 Blood Culture Result 1 - Preliminary Blood Staphylococcus aureus Discharge Plan Discharge Disposition: Home, Self-Care Condition: Fair Discharge Medications: New ceftriaxone 1 gram recon soln 1 g IV DAILY Continued amlodipine 10 mg tablet 10 mg PO DAILY Qty: 30 0RF atorvastatin 20 mg tablet 20 mg PO DAILY citalopram 10 mg tablet 10 mg PO DAILY Activity: increase activity as tolerated Diet: advance to your usual diet Print Language: [place] Citizen Patient Instructions: Surgical Site Infections (DC), Joint Incision and Drainage (DC), How to Care for Your PICC (Peripherally Inserted Central Catheter) (DC) Forms: Portal Instructions Follow Up Appointments: Dr. Latham's office will call to set up a follow up appt. May 06 @ 1:30pm with Dr. Cárdenas [address] [place] [address]
[2024-04-27] MEDS: CEFTRIAXONE 1,000 MG in 0.9 % SODIUM CHLORIDE 50 ML 100 MG IV (10:32)
--- NOTE | 2024-04-27 10:43 | CM.NOTE ---
Rounds made with Dr. Avila, pt will discharge to home today. Pt will need IV antibiotics at discharge, pt and are requesting to come to infusion center for IV antibiotics. [facility] form completed and faxed to [facility]. Called [facility] also to let them know pt would start tomorrow. Called [facility] scheduling also and left message.
[2024-04-27 16:09] LABS: pH, Body Fluid 6.6 (Not Estab.)
--- NOTE | 2024-04-29 10:06 | PC.NURSE ---
04/29/2024 Dr. Avila aware of positive tissue culture. No orders recieved.
--- NOTE | 2024-04-29 14:28 | CM.DCFOLLOWU ---
Person spoke with:patient How are you feeling? well How is your pain? no pain Did you understand your discharge instructions? yes Do you have any questions about your discharge instructions? no Were you given any prescriptions at discharge? [facility] Were you able to get your prescriptions filled? [facility] Do you understand how to take your medications as ordered? yes Do you have any questions about your follow up appointment and do you plan to keep your follow up appointment? no questions, reviewed follow ups Is there anything else that you would like to discuss? no Questions/Comments/Concerns/Other: no
== END 2024-04-27 11:43 | disposition home or self-care (01) | DRG 486 ==
LOC: ER 14:56 → MS 14:58
PROVIDERS: Orthopaedic Surgery; Admitting Provider Family Medicine; Emergency Provider Emergency Medicine; PCP Internal Medicine; Visit Provider Family Medicine
PROC: 0SBC4ZZ Excision of Right Knee Joint, Percutaneous Endoscopic Approach (ICD-10-PCS; principal; 2024-04-24 15:30)
DX: M00.061 Staphylococcal arthritis, right knee (principal); G90.512 Complex regional pain syndrome I of left upper limb; E78.00 Pure hypercholesterolemia, unspecified; I10 Essential (primary) hypertension; B95.61 Methicillin susceptible Staphylococcus aureus infection as the cause of diseases classified elsewhere; B34.8 Other viral infections of unspecified site; M25.461 Effusion, right knee; Z96.82 Presence of neurostimulator; D72.829 Elevated white blood cell count, unspecified; M79.10 Myalgia, unspecified site; F41.9 Anxiety disorder, unspecified; Z79.899 Other long term (current) drug therapy
CPT/HCPCS: 0202U; 20610; 36415; 36569; 36592; 71275; 73562; 74174; 80053; 81003; 82550; 83605; 83735; 83986; 84157; 84484; 84550; 85025; 85610; 85652; 85730; 86140; 87040; 87070; 87102; 87116; 87150; 87186; 87205; 87206; 89051; 89060; 93005; 93306; 93971; 94761; 96365; 96366; 96367; 96368; 96375; 96376; 99285; 99999; C1887; J2704; J3370; Q9967

== ENCOUNTER 2024-05-04 08:45 | Outpatient (OUT) | payer OTHER, SELFPAY ==
--- NOTE | 2024-05-04 | XR_ITS ---
[address] [address] Patient Name: LONDON DAMON MRN: [id number] date: 1970 Sex: M Assigned Patient Location: Current Patient Location: Accession/Order Number: [id number] Exam Date: 05/04/2024 08:48 Report Date: 05/04/2024 09:33 At the request of: CASEY DUNAWAY Procedure: XR knee RT 4V PROCEDURE: XR knee RT 4V COMPARISON: None. HISTORY: RIGHT KNEE PAIN FINDINGS: BONES:No acute fracture or dislocation. Mild tricompartmental osteoarthropathy with marginal osteophyte formation. Mild narrowing of medial joint space SOFT TISSUES:Negative. No visible soft tissue swelling. EFFUSION:Small suprapatellar joint effusion OTHER: Vascular calcifications XR/XR knee RT 4V IMPRESSION: Mild osteoarthritis with small joint effusion Electronically authenticated by: DENY JONES Date: 05/04/2024 09:33
== END 2024-05-04 08:46 | disposition home or self-care (01) ==
LOC: EC 08:46
PROVIDERS: PCP Internal Medicine; Visit Provider Orthopaedic Surgery
DX: M00.861 Arthritis due to other bacteria, right knee (principal); M17.11 Unilateral primary osteoarthritis, right knee; M25.461 Effusion, right knee
CPT/HCPCS: 73564; 96365

== ENCOUNTER 2024-05-06 08:22 | Outpatient (OUT) | payer OTHER, SELFPAY ==
--- OUTSIDE RECORDS SUMMARY | 2024-05-06 08:30 | XMS_ITS ---
Patient Summarization (C-CDA 2.1 CCD) Created on: May 06, 2024 ANIBAL DAMON : 1970 Sex: Male Author Organization Sample organization Care Team Providers Care Rehab Consultant Name Role Phone Unavailable Primary Care Provider Unavailrachael e Baljinder Hamilton Primary Care Provider Baljinder Hamilton Primary Care Provider Baljinder Hamilton Primary Care Provider Baljinder Hamilton Primary Care Provider SUKHJINDER MUSA Referring Unavailable BALJINDER ARTHUR Primary Care Unavailable MEHREEN OLIVAREZ Referring Unavailable BALJINDER ARTHUR Primary Care Unavailable CAROLYN JOSEPH Referring Unavailable BALJINDER ARTHUR Primary Care Unavailable BALJINDER ARTHUR Referring Unavailable ABLJINDER ARTHUR Primary Care Unavailable Nicole Jean Attending Unavailable Nicole Jean Admitting Unavailable Provider, None Primary Care Unavailable Allergies Allergy Classification Reported Allergen(s) Allergy Type Date of Onset Reaction(s) Facility (7 sources) HYDROcodone Drug Allergy 1 [facility] (1 source) Codeine; Translations: [codeine] Drug Allergy [facility] Repository NEGATED: Highlighted row has been ruled out! (2 sources) Other Propensity to adverse reactions 3 Other (See Comments) [facility] Encounters Encounter Date Encounter Type Care Provider Facility Start: 03-17-2024 End: 03-17-2024 Emergency department patient visit Nicole Jean Facility:[facility] Start: 03-30-2023 End: 03-31-2023 ambulatory MEHREEN OLIVAREZ [facility] Start: 03-30-2023 End: 03-30-2023 Subsequent hospital visit by physician Baljinder MARSHALL Work Phone: [facility] Laboratory Comment on above: Serum potassium elev ated Start: 03-26-2023 End: 03-27-2023 ambulatory BALJINDER ARTHUR [facility] Start: 03-26-2023 End: 03-26-2023 Subsequent hospital visit by physician Baljinder MARSHALL Work Phone: [facility] Lab Comment on above: Essential (primary) hypertension; Hyperlipidemia, unspecified hyperlipidemia type Start: 08-31-2022 End: 09-03-2022 ambulatory SUKHJINDER MUSA [facility] Start: 08-31-2022 End: 09-02-2022 Subsequent hospital visit by physician [facility] Mri Rm [facility] MRI Comment on above: SAH (subarachnoid [...] End: 09-08-2021 Subsequent hospital visit by physician [facility] [address] Rm [address] [facility] [address] Scan Comment on above: SAH (subarachnoid he morrhage) (HCC) Start: 03-08-2021 End: 03-10-2021 Subsequent hospital visit by physician [facility] Ct Rm [address] [facility] [address] Scan Comment on above: SAH (subarachnoid he morrhage) (HCC) Start: 12-22-2020 End: 12-24-2020 Subsequent hospital visit by physician [facility] Ct Rm [address] [facility] [address] Scan Comment on above: Sciatica of left gogo e Start: 12-03-2020 End: 12-13-2020 Evaluation and management of inpatient Geraldo Ribera Lukasz Work Phone: [facility] Neuro Comment on above: SAH (subarachnoid he morrhage) (HCC) (Primary Dx) Medical Equipment Procedure Code Equipment Code Equipment Original Text Equipment Identifier Dates Lead Pace L90cm 2x8 Spec Surescan Mri - [id number] Start: 12-11-2022 Pouch Tyrx Neuro Antimicrobial Med - [id number] Start: 12-12-2022 Plate Bne Bar L1 2mm 2 H Craniomaxillofacial Ti Rig For Univ - [id number] Start: 12-11-2022 Cath Passer 60cm - [id number] Start: 12-12-2022 Immunizations Immunization Date Immunization Notes Care Provider Fa cility 02-11-2021 COVID-19, Pfizer, PF , 30mcg/0.3mL St[facility] 1 [facility] Work Phone: 01-21-2021 COVID-19, Pfizer, PF , 30mcg/0.3mL Stc 1 [facility] [employer] Medications Current Medications Medication Drug Class(es) Dates [...] mg docusate sodium 50 mg / sennosides, penitentiary 8.6 mg oral tablet (1 source) Start: [...] infusion Payers Date Payer Category Payer Unknown [id number] 2020 Unknown [id number] 1970 Unknown [id number] [id number] [id number] 1970 Unknown [id number] [id number] [id number] 1970 Unknown [id number] 2.16.8 [id number] 1970 Unknown [id number] 1970 Unknown [id number] 2.16.8 [id number] Plan of Treatment Date Care Activity Detail Author Start: 05-01-2025 Screening for malign ant neoplasm of colon [facility] Start: 03-26-2024 Lipid panel Lipids [facility] Start: 03-04-2024 Depression Screen Depression Screen [facility] Start: 12-04-2023 Diabetes screen Diabetes screen [facility] Start: 06-25-2023 Influenza vaccination Flu vacc ine (Season Ended) [facility] Start: 09-17-2022 End: 09-17-2022 Patient encounter procedure 09/17/2022 Office Visit Neurosurgery Nidia Archer DO [address] [facility] [address] [phone] [facility] Start: 09-01-2022 Creatinine measurement Creatinine mo [facility] Work Phone: Start: 09-01-20[address] 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 [employer] DE[employer]MENT [address] [facility] [address] [place] [address] [phone] [facility] Start: 07-26-2022 Influenza vaccination Flu vaccine (# 1) [facility] Start: 07-19-2022 End: 07-19-2022 Admission to same day surgery center 07/19/2022 Surgery IP Unit Nidia Archer DO [address] [facility] [address] [place] [phone] EXPLANTATION OF SPINAL CORD STIMULATOR (REGULAR TABLE, PRONE) [facility] OR Comment on above: EXPLANTATION OF SPIN AL CORD STIMULATOR (REGULAR TABLE, PRONE) Start: 07-19-2022 End: 07-19-2022 STIMULATOR INSERTION [facility] Start: 07-19-2022 Subsequent hospital visit by physician 07/19/2022 Hospital Encounter IP Unit Nidia Archer DO [address] [facility] [address] [phone] [facility] Start: 06-25-2022 Influenza vaccination Flu vaccine (# 1) [facility] Start: 05-22-2022 Depression Screen Depression Screen [facility] Start: 12-13-2021 Creatinine measurement Creatinine mo nitoring [place], [place] Start: 12-13-2021 Potassium monitoring Potassium monit oring [place], [place] Start: 12-04-2021 Lipid panel Lipid screen [place], [place] Start: 10-16-2021 End: 10-16-2021 Patient encounter procedure 10/16/2021 Office [place] [address] [place] [address] [facility] Start: 10-03-2021 End: 10-03-2021 ambulatory 10/03/2021 Virtual Visit Neurology Carolyn Joseph MD [address] [facility] [address] [address] [facility]science Start: 09-30-2021 Screening for malign ant neoplasm of colon Colon cancer screen fecal DNA test (Cologuard) [facility] [employer] Phone: Start: 07-26-2021 Influenza vaccination [facility] [employer] Phone: Start: 07-14-2021 COVID-19 Vaccine (3 - Booster for Pfizer series) COVID-19 Vaccine (3 - Booster for Pfizer series) [facility] Start: 04-08-2021 COVID-19 Vaccine (3 - Booster for Pfizer series) COVID-19 Vaccine (3 - Booster for Pfizer series) [facility] Start: 03-13-2021 End: 03-13-2021 ambulatory 03/13/2021 Virtual Visit Neurology Carolyn Joseph MD [address] [facility] [address] [place] [address] [phone] [facility] Start: 03-13-2021 End: 12-13-2021 CTA HEAD W CONTRAST CTA HEAD W CONTRAST Imaging Routine SAH (subarachnoid hemorrhage) (HCC) Expected: 03/13/2021, Expires: 12/13/2021 [place], [place] Comment on above: Expected: 03/13/2021 , Expires: 12/13/2021 Start: 03-07-2021 End: 03-07-2021 Office Visit 03/07/2021 Office Visit Neurology Carolyn Joseph MD [address] [facility] [address] [place] [address] [phone] [facility] Start: 01-06-2021 End: 01-06-2021 Office Visit 01/06/2021 Office Visit Neurology Hermes Box MD [address] [facility] [address] [address] [phone] [facility] Start: 01-02-2021 End: 01-02-2021 Office Visit 01/02/2021 Office Visit Neurology Pavan Howell MD [address] [facility] [address] [place] [address] [phone] [facility] Start: 07-26-2020 Influenza vaccination Flu vaccine (# 1) [place], [place] Start: 2018 Screening for malign ant neoplasm of colon Colon cancer screen colonoscopy [place], [place] Start: 2018 Shingles Vaccine (1 of 2) Shingles Vaccine (1 of 2) [facility] Start: 2013 Screening for malign ant neoplasm of colon [facility] Start: 1987 DTaP/Tdap/Td vaccine (1 - Tdap) DTaP/Tdap/Td vaccine (1 - Tdap) [facility] Start: 1983 HIV screening HIV screen [place], [place] Start: 1970 Hepatitis C screening Hepatitis C sc reen [place], [place] Basic metabolic 2000 panel BASIC METABOLIC PANEL Lab Routine Daily until discontinued starting 12/07/2020, 6 completed [place] Comment on above: Daily until disconti nued starting 12/07/2020, 6 completed CBC WITH AUTO DIFFERENTIAL CBC WITH AUTO DIFFERENTIAL Lab Routine Daily until discontinued starting 12/07/2020, 6 completed [place] Comment on above: Daily until disconti nued starting 12/07/2020, 6 completed End: 03-26-2023 Comprehensive metabolic 2000 panel - Serum or Plasma [facility] [employer] Phone: Comment on above: 1 Occurrences starti ng 03/26/2023 until 03/26/2023 Continuous pulse oximetry Pulse oximetry, continuous Respiratory Care Routine Every 4hr until discontinued starting 12/04/2020 [place] Comment on above: Every 4hr until disc ontinued starting 12/04/2020 End: 12-04-2020 EKG 12 Lead EKG 12 Lead ECG Routine One Time for 1 Occurrences starting 12/04/2020 until 12/04/2020 [place] Comment on above: One Time for 1 Occur rences starting 12/04/2020 until 12/04/2020 End: 07-05-2022 EKG 12 Lead EKG 12 Lead ECG Routine One Time for 1 Occurrences starting 07/05/2022 until 07/05/2022 [facility] [employer] Phone: Comment on above: One Time for 1 Occur rences starting 07/05/2022 until 07/05/2022 End: 07-19-2022 INITIATE PACU OXYGEN THERAPY PROTOCOL Initiate PACU Oxygen Therapy Protocol Respiratory Care Routine Continuous until discontinued starting 07/19/2022 [employer] Phone: Comment on above: Continuous until dis continued starting 07/19/2022 Intermittent pulse oximetry Pulse Oximetry Spot Check Respiratory Care Routine As Needed until discontinued starting 12/13/2020 [employer] [place] Comment on above: As Needed until disc ontinued starting 12/13/2020 End: 12-13-2020 IR ANGIOGRAM CAROTID C EREBRAL BILATERAL IR ANGIOGRAM CAROTID C EREBRAL BILATERAL Imaging Routine Once for 1 Occurrences starting 12/13/2020 until 12/13/2020 [facility] [place] Comment on above: Once for 1 Occurrenc es starting 12/13/2020 until 12/13/2020 IR ANGIOGRAM CAROTID C EREBRAL BILATERAL [facility] [place] End: 03-26-2023 Lipid, Fasting [employer] Phone: Comment on above: 1 Occurrences starti ng 03/26/2023 until 03/26/2023 End: 12-17-2020 Magnesium [Mass/Vol] Magnesium Lab Routine Daily for 2 Weeks starting 12/04/2020 until 12/17/2020, 8 completed [employer] [place] Comment on above: Daily for [address] arting 12/04/2020 until 12/17/2020, 8 completed Oxygen therapy [[facility] Data Set] [facility] [place] Comment on above: Daily until disconti nued starting 12/04/2020 Daily until disconti nued starting 12/13/2020 End: 03-26-2023 PSA screening [employer] Phone: Comment on above: 1 Occurrences starti ng 03/26/2023 until 03/26/2023 Spirometry panel Incentive nereyda metry Respiratory Care Routine Every 2hr while awake until discontinued starting 07/19/2022 [employer] Phone: Comment on above: Every 2hr while awak e until discontinued starting 07/19/2022 Surgical Pathology Surgical Path ology Lab Routine Complex regional pain syndrome type 1 of left upper extremity Release Upon Ordering for 1 Occurrences starting 07/19/2022 [employer] Phone: Comment on above: Release Upon Orderin g for 1 Occurrences starting 07/19/2022 End: 07-19-2022 SURGICAL PATHOLOGY REPORT SURGICAL PATHOLOGY REPORT Lab Routine Once for 1 Occurrences starting 07/19/2022 until 07/19/2022 ANGI BROWER [employer] Phone: Comment on above: Once for 1 [...] Work Phone: Start: 07-19-2022 Fluoroscopy during operation [employer] Work Phone: Start: 07-05-2022 Antibody screen [facility] Start: 07-05-2022 Blood typing serologic abo [employer] DO Work Phone: Start: 07-05-2022 Electrolyte panel [...] Work Phone: Start: 12-03-2020 Sodium [Moles/Vol] Dl Lla Work Phone: Start: 12-03-2020 VENOUS BLOOD GAS, PO INT OF CARE Geraldo Lal Work Phone: Results Test Name Value Interpretation Reference Range Facility Coding Summaryon 03-24-2024 Coding Summary HTMLBase 64 EkabpepwFHa5hVe+PGhl YWQ+MR3OKXAzD30dcXPy kO4cG6DULWuONymdRNSD SLjBUfYtiiGcFL1xxJMc ZXJu IC8+SV7oMTAuBvwrwJLt f8G3sYZ9Z67key9gINqt kEK2ZOFpXnIecvhum3cj fTq2OCqbApfkAcVd ANBewX53SDP8fH81Mh26 hPQbbNVut6zzkXa0HmMl MWYyWJR5hAslFRuqz8Qk SZVwC36thCElu4E3 IGNvbGxhcHNlOyBlbXB0 tY6uGRxcmfhka5tubiep Jvn1qs62tZJnx5E1xNN2 E6RfzoH6FMGoxLVc YjfvgLRTwO1qhjqbm7ld jmqvIdUhMERtBYu2POz7 VBKgcYjrVdGfST91MOO6 XTJigoZqG7BlMMFo gXxtJcO9p5R4Zd0VM2BU EdocK9QBRWKPXYqfyKZ+ WE70ak19G1YnUqtkDua0 GBZeAET0eSZ3sB3i FRJaAPoxh5S4hPJ3H9Uo llWppf6rj3zkCULjOYfx I79puACdt9R6XLIwdGT5 QTPkzFtiTtVssQ19 Oyc+EMMznKusp2MnRryo q5apv7lcsMg1YkoeUDDn wrFpxOzdNRP6k4CqKn1t QWSzvPP9jGW3wN3z BhOeIwL2BSzlX011FcLa nFYzHheiH61mL2WnuXU+ SHTnBif5CYAzlEnkGC3o Q0YzXULfatqgiEFw kCoqHG4mOJGzzalxAYVj dG0oVXIfK1q8EtClQfX1 UQvgT4AnLETqljxqQs74 hK3qRvYbQxB4RRsl J6OfibI9WJIeiVXeKQzb ZDN6N65pi1Y8HXAzMIDn HJP5dWW7aL7boOhfvfre bGVmdDsgdmVydGlj GIslRLavC918JOChcAzc PkNvZGluZyBEYXRlOiAg MDQvMzAvMjAyNDwvdGQ+ MPQmEJS4uSmlNWSu cAJyMYnfIy7waQdidHpo EX6oXHOlgzkbWGMxiR9p VVXkoKQqqAyoOT2zZNTc sqsjg017CgMeVYN5 IZPzcZCmV7VxmM8sErMj TIYmYRLmV3ZosLLpXLfb M538VHemLdB5DKDsubEn I8JzSOCsiHzxEiV1 u3T3Ew8Tn3InoelmE2Ld rNQgDoOyGeaqGHx1X7Sl PjwvdHI+AA56DJDaBY27 JRw3PVP3pHfsSVvj HZKdP6XnhT9lZbKaMXIk ZGRkOyc+PHRhYmxlIHdp ZHRoPScxMDAlJyBzdHls WP1kEl5eTOOuINFq xZuuuXPdWrWhb3uqPITw REatMA4msPksB5QogZY5 NGAjr5g7Uq68T10lF1Jm dXA+OADcjMM0iLC6 mR6aFmLdGiJ1SZreM723 NrZowJFwZboxh3cpx6na yXd3KfX6PHBjpgAwwRfh SNW0j7LwXe87E69r IHdpZHRoPSIxNSUiIHZh jAfadw9cyY1kWi1+PGNv cWV9sOV0bZ5wRwSnJuJ4 ZMwsL957YmZsiQCy Cbuyn1nvh6rziNy3DsKi EEItnvEhhAdmTCR8h9Lw Cp24Z3OgpQztn4KvGgz1 tn75bCFfq7T9cIS8 Y3ZiPOBckoyrqWMblEzu NP2tITPgcgszVOEuuA7w DPKmL9u9MrCcTdK9ZXln M2OmctB7CZXfhBDa QCXrtILCbF7yvoiqr4iz bqhtGzPzBDVoMOt0AAe8 ONRolQovScDtNAE8XbT4 HPQ1kOCapU1tcGqw igrefZ9mJuv+UPG1gGAm aBUACO2dOtxftTM+PHRk UAN9yThaCDtoPUPiiO7n GRZfY2k3SgIvQmS4 MIgiU3EpsiZ0AOSfjWUz BSAteJCTcE0pwxzdr1ag tcabLoCcZPKgIOs4KZo9 LWFsaWduOiBsZWZ0 OuN7SOR0dPZdpC7hgBsa vmqniQ5hGsa+QmlydGgg ULJ7GQf4D3CnOju0WQZw kDbqIC7viQUmORpj Tm2blYlghTniYU7fYLDq gahor059WkRwo2zlJYXt cKQkWUirKGT9P09as4S6 KJFhUXStHMP3dYW1 vL1zoLqrmqpxmZPzqTww xgMwiUflGXecZBdsJ906 NCHlsUtxChTlLEy8H4Tp Abk2MKTmoTlcZO5a lLZbAMejJo7glQzyeKjk CA9uOAKudsgpn672TqJy u8tlFHOdyAPlVTuwZOC4 P41jw0A6IYLiXMWt SKQ4jFU6vU6ydKdsbbmu bGVmdDsgdmVydGljYWwt XJefC291NOMvqOgiOgAt vDn2D4AtDvn8XMDp uNngMC0bdJQdPIjiCl7r gOaibKhzTP1iCEBpbgie n623TqAbc9ghTTYybFRz AIakJEN6G28xk7G6 KUQsUZLnOTU1jPS3nM9l bGlnbjogbGVmdDsgdmVy uJnnMBisTEqtO907MLNm cDsnPlBhdGllbnQg ABlwJIy3G3EwEbqccBX+ YR62MHJjHE25fPGsfZNv u6ntzNb4DbSkXKJxYCZ6 cUytJQsrz4XyKAPr U41vaEIne9Z1XXAkyScu wXRiHvZenSG6gK9xFApz qlewk2urvszxSvnjs1ax ff30aE45X64lFLnn ZHRoPSIzMCUiIHZhbGln xg8azE7nTg5+PGNvbCB3 gLI4eT1tTMNaIuS1VIvv P802IgZvsSDcXjiu y0zor3jplYa4LgX7GQZh gjQtxRlaDNQ1q8FvUn29 V87gOJmjEBRvEJQgXJDc DNXqsRegky6ieY7v Ii8+BIXlbKV2iWY1tN7j BrXiWvZ4QQdyX121DlQa zSSzWvlfF82vS7AkkIY+ LLNrGkh0CBHybNpp CA7qlRJzXLwpHn6xSKT7 AjJbGtDrTDrnN7FzDCFc vsewpfnpsII4RJGxEXUc dE33Al1awSxhTACb xLRCnB2brsjms0oizakt MlEgCBUkKVo3IEq2MVUh iLmjZmLwGWR5ShO9KEM0 oUThnP6sgGblysik bK3dS4YpSQCaadssZi38 rQ6cMvHyTtK8DJbaScj+ VFJPVVQsIFBISUxMSVAg GJhIGB96C9LxPru2 NIZdiMmqLF1smVTiFCrj Gb0lwPootUkvVO5uBKPk zozmZKXoeF8kAHSynOHh mBguAB6mJZPifsau v401ZxJdARL2EYFnqAZj F6ZmhP3mSrQxVNPbFXWn W3AdzOQxTDveE722HKmb FaY0PLTbffIzN2Ue KUIjkMhrLfT3r2Q6Ca8t WI6jWo0bHBL2KG92VT72 pSWnx3L7bZK4Y7HrGXDr vvgqmusiyZE8EMXh VIWthU45qEBcPYwwSr8w z6X0t727PQSaGNDhaD91 Mg7quJraXZUipNMTyJ7e ytzai4xqlpjdOsEx OSYeHYd5KOt5GLIchDps LhFmZRJ1MrI7AKW4pAXl fO8voMtihnrjkL7iPes+ VCSfNIIrwlL3M5Qd Kct3BLRatOkdXS2fuIOb AGydFx8rfVelbKjlYU7j TRTvymmfOQYotZ4iAXOl sHNiiKodZM0rYDAu bajvm474DcBsAQP6TPZg zBJjW3WedY2rYtLqTJJw XIOiX3FoxJVcUXxhZ138 OWkpAfC5PXWcsmXn F0NnWBVebLntUhL6c0Z4 Zg5QGOhUPX36LJ69gHBn a1U4fSH3L9StCOArmesc ynzsdNU5XBGeYZUs lT07wXFwVRskUi6zt3L1 s778PXFwNPUzvM59Sh1f xCbgURZtyTHQtB3tftwt w2vxipnzFcSdCKUx IZa0KKb3WNApqOwrFqGz MVQ9NpY9BAF6qVQnjB1w fOkpqqqfqX7gPqw+RW1l xpvqweG9FF96IB21 W7OmTqzihRDzsKG+PHRh YmxlIHdpZHRoPScxMDAl CaDocPztNR7dWb7iQHRs LWNvbGxhcHNlOiBj c9ulGWElEGonJW7liEmn I2HktIO3AIRat5m2Yi83 E93tF9PpxYO+PGNvbCB3 pDI9iM3jNiRlGpS9 RGqjN012FnOazMMrPtdk k8htz4ywoPn7WlVhVPFl hgZaqEpnAJC7a6HkRp10 Y37xBOecCDZnUJGk QCTlFJFlnXrkwi7yoS4z Ii8+KAUypNQ2gXU1tD5b LbTzQwF5YUxvO473LtIv tXBgChkjQ56jA0Gk dXA+DOGxCif8QXXgbRbx WW7ztLBuUWwrXe9pZRU5 GjFoAvGxDSpfK3OeGXOd clfinmsldIM9LLOv XEIfvS98Hm9zqFuuXu0w EDSkUQB1LYVdsOLaV7Fg oB0pLtEiKFJyJRTzE7Lm pJJpJIedT117ZRqv XkB9FXKpjyAeC9PeJSNu qTzmGqH6n5M8Sz5HuPux gLIcYN8xPdUxFJc7D9Ux Qtz8XHEpjBugAN2o eCOwWBqiAi5qgFwwyIdy AS7dABKkdvctr009NmTi t1osYWNrpTGeYGrpMKR1 W19aq7M1RRYeEGNl PIF2pAD2vY3dzHdrvjbb bGVmdDsgdmVydGljYWwt NJsaZ510WRSnwKkpTfEC Nnh8M1MtQmt9FKHy rOqmVE1wjMZoYUcuZo5c dYgvtAemXQ3xVCMxqwhi z503BvJry1veYDHylXIj OQyuOCW9G52um7L8 HICcVARaRVW6iUC8fY2p bGlnbjogbGVmdDsgdmVy rRdlSIiaOQnhV738KKDu aWmeIu1MDwt9E9Bz Lwm9XRNbjRsqJM4ziKRo ZPbtRh0vrAiyoGfsNG6n FQVhaoksc533QiTcj1vt IDEwcHQgVGltZXM7 Q04at6I1ZGFlFQZgWNM8 lUM0pO9qfClxvehysOCy dDsgdmVydGljYWwtYWxp I184GJHykRpbTkVk eWVyOjwvdGQ+QY18ic70 E7NmSjpyKzz6YEQyAKR9 mPJ7bK6vOLIfNUflu9D9 rKW4N6VskyJydg3l b2x (more content not included)... [facility] CT Head or Brain w/o Contras ton [...] acute intracranial abnormality. Final Dictated by: Wild Sherman MD Dictated DT/TM: 03/17/24 4:29 Signed (Electronic Signature): Wild Sherman MD 03/17/24 4:30 pm Technologist: Vianey MACHADO [facility] CT Spine Cervical w/o Contra ston 03-17-2024 [...] MD 03/17/24 4:32 pm Technologist: Vianey MACHADO [facility] ED Clinical Summaryon 2023 ED Clinical Summary [facility] - Emergency Department [address] [place], [place] [id number] ED Clinical Summary PERSON INFORMATION Name: ANIBAL DAMON Age: 53 Years Sex: MALE : 1970 MRN: Acct#: Visit Reason: Neck pain; Closed head injury without LOC; FALL- HEAD INJURY Arrival: 03/17/2024 15:37:09 Discharge: 03/17/2024 17:07:00 LOS: 000 01:30 Check In: 03/17/2024 15:37:09 Checkout:03/17/2024 17:07:00 Address: [address] [place] [id number] PCP: Provider, None PROVIDER INFORMATION Provider Role Assigned Unassigned Nicole Jean CLIENT REPORTING ASSOCIATE ED PA 03/17/2024 15:42:25 [place] DIE SINKER APPRENTICE Nurse 03/17/2024 15:44:39 VITALS INFORMATION Vital Sign Triage Latest Temperature Tympanic Temperature Temporal Artery Pulse Rate O2 Sat 98 % 98 % Respiratory Rate 16 br/min 16 br/min Blood Pressure /105 mmHg /105 mmHg MEDICAL INFORMATION Medications Given: Allergy Information: codeine PHYSICIAN DOCUMENTATION DISCHARGE INFORMATION: Discharge Disposition: Home Discharge Location: Home PATIENT EDUCATION INFORMATION Instructions: Head Injury, Adult, Cvti-gr-Slni Follow-Up: With: Address: When: Provider, None [address] [place] [address] Within 3 to 5 days Comments: Follow-up with primary care in 3 to 5 days. If symptoms worsen or progress return to the emergency room. DIAGNOSIS: 1:Head injury due to trauma; 2:Blurred vision Patient Understands: Yes - Patient/family/careg iver verbalizes understanding of instructions given Comment: Normal [facility] ED Patient Summaryon 024 ED Patient Summary [facility] - Emergency Department [address] [place] [id number] PATIENT DISCHARGE INSTRUCTIONS Patient Information Name: ANIBAL DAMON Age: 53 Years Date of : 1970 Reason For Visit: Neck pain; Closed head injury without LOC; FALL- HEAD INJURY Arrival Time: 03/17/2024 15:37:09 Primary Care Physician: Maria T, Cheikh Attending Physician: Cheng Velarde MD Comment: Visit Diagnosis: Diagnoses This Visit Blurred vision (H53.8) Closed head injury without LOC ([id number]) Head injury due to trauma (S09.90XA) Neck pain ([id number]) The Pharmacy at [facility] is open Saturday through Saturday from 9A [...] alcohol and/or drug addiction problems; contact the [facility] 17/06 Crisis Hotline -Text 5DORK rv 704770. If you received any narcotics, sedation, or [...] documents With: Address: When: Provider, None [address] [place] [address] Within 3 to 5 days Comments: Follow-up with primary care in 3 to 5 days. If symptoms worsen or progress return to the emergency room. Medication Information: The exam and treatment you received today in the [facility] Emergency Department were for an urgent problem and are not intended as complete care. It is important for you to follow up with a doctor, nurse practitioner, or physician?s school psychologist assistant for ongoing care. If your symptoms [...] so we can reach you if necessary. [facility] Emergency Department has provided you with a complete list of medications post discharge. Please inform your primary care physician/provider of your visit and for further instruction [...] a bum (more content not included)... Normal [facility] Basic Metabolic Panelon 05-0 Anion gap [Moles/Vol] 11 mmol/L 9 - 17 mmol/L [facility] Calcium [Mass/Vol] 9.0 mg/dL 8.6 - 10. 4 mg/dL [facility] [employer] Chloride [Moles/Vol] 106 mmol/L 98 - 10 7 mmol/L [facility] CO2 [Moles/Vol] 26 mmol/L 20 - 31 mmol/L [facility] Creatinine [Mass/Vol] 0.82 mg/dL 0.70 - 1.20 mg/dL [facility] [employer] GFR/1.73 sq M.predicted MDRD (S/P/Bld) [Vol rate/Area] - PINF [facility] [employer] [facility] Comment on above: These results are not [...] 103 mg/dL High 70 - 99 mg/dL [facility] Interpretation and review of laboratory results Abnormal [facility] Potassium [Moles/Vol] 4.5 mmol/L 3.7 - 5.3 mmol/L [facility] Sodium [Moles/Vol] 143 mmol/L 135 - 144 mmol/L [facility] Urea nitrogen [Mass/Vol] 15 mg/dL 6 - 20 mg/dL [facility] Basic Metabolic Profon 03-30 Anion gap [Moles/Vol] 11 mmol/L Normal 9-[address] [facility] Comment on above: Performed By: #### B MP #### Lab [address] [place] [address] Cardroom Worker: German Nguyen DO Calcium [Mass/Vol] 9.0 mg/dL Normal 8.6-10.4 [facility] Comment on above: Performed By: #### B MP #### Lab [facility] [place] [address] Cardroom Worker: German Nguyen DO Chloride [Moles/Vol] 106 mmol/L Normal 98-107 [facility] Comment on above: Performed By: #### B MP #### Lab [facility] [place] [address] Cardroom Worker: German Nguyen DO CO2 [Moles/Vol] 26 mmol/L Normal 20-31 [facility] Comment on above: Performed By: #### B MP #### Lab [facility] [place] [address] Cardroom Worker: German Nguyen DO Creatinine [Mass/Vol] 0.82 mg/dL Normal 0.70-1.[address] [facility] Comment on above: Performed By: #### B MP #### Lab [facility] [place] [address] Cardroom Worker: German Nguyne DO GFR/1.73 sq M.predicted among non-blacks MDRD (S/P/Bld) [Vol rate/Area] mL/min/{1.73_m2} Normal >60 [facility] Comment on above: Result Comment: These results [...] secretion. Performed By: #### B MP #### Lab [facility] [place] [address] Cardroom Worker: German Nguyen DO Glucose [Mass/Vol] 103 mg/dL High 70-99 [facility] Comment on above: Performed By: #### B MP #### Lab [address] [place] [address] Cardroom Worker: German Nguyen DO Potassium [Moles/Vol] 4.5 mmol/L Normal 3.7-5.[address] [facility] Comment on above: Performed By: #### B MP #### Lab [address] [place] [address]. [place] [address] Cardroom Worker: German Nguyen DO Sodium [Moles/Vol] 143 mmol/L Normal 135-144 [facility] Comment on above: Performed By: #### B MP #### Lab [address] [place] [address]. [place] [address] Cardroom Worker: German Nguyen DO Urea nitrogen [Mass/Vol] 15 mg/dL Normal 6-20 [facility] Comment on above: Performed By: #### B MP #### Lab [address] [place] [address]. [place] [address] Cardroom Worker: German Nguyen DO Comp Metabolic Profon 2022 Albumin [Mass/Vol] 4.0 g/dL Normal 3.5-5.2 [facility] Comment on above: Performed By: #### C DP, LIPRF, CP, PSAS #### [address] [address] Cardroom Worker: Sahil Tanner MD Albumin/Glob Ratio 1.5 Normal 1.0-2.5 [facility] Comment on above: Performed By: #### C DP, LIPRF, CP, PSAS #### [address] [address] Cardroom Worker: Sahil Tanner MD Alkaline Phos 61 U/L Normal 40-129 [facility] Comment on above: Performed By: #### C DP, LIPRF, CP, PSAS #### [address] [address] Cardroom Worker: Sahil Tanner MD ALT [Catalytic activity/Vol] 40 U/L Normal 5-41 [facility] Comment on above: Performed By: #### C DP, LIPRF, CP, PSAS #### [address] [address] Cardroom Worker: Sahil Tanner MD Anion gap [Moles/Vol] 19 mmol/L High 9-17 [facility] Comment on above: Result Comment: INTE RPRET RESULTS WITH CAUTION. SPECIMEN QUALITY QUESTIONED. Performed By: #### C DP, LIPRF, CP, PSAS #### [facility] [employer] [address] [place] [address] Cardroom Worker: Sahil Tanner MD AST [Catalytic activity/Vol] 58 U/L High <40 [facility] Comment on above: Performed By: #### C DP, LIPRF, CP, PSAS #### [facility] [employer] [address] [place] [address] Cardroom Worker: Saihl Tanner MD Bilirubin [Mass/Vol] 0.3 mg/dL Normal 0.3-1.2 [facility] Comment on above: Performed By: #### C DP, LIPRF, CP, PSAS #### [address] [address] Cardroom Worker: Sahil Tanner MD Calcium [Mass/Vol] 9.2 mg/dL Normal 8.6-10.4 [facility] Comment on above: Performed By: #### C DP, LIPRF, CP, PSAS #### [address] [address] Cardroom Worker: Sahil Tanner MD Chloride [Moles/Vol] 104 mmol/L Normal 98-107 [facility] Comment on above: Performed By: #### C DP, LIPRF, CP, PSAS #### [address] [address] Cardroom Worker: Sahil Tanner MD CO2 [Moles/Vol] 16 mmol/L Low 20-31 [facility] Comment on above: Result Comment: INTE RPRET RESULTS WITH CAUTION. SPECIMEN QUALITY QUESTIONED. Performed By: #### C DP, LIPRF, CP, PSAS #### [address] [address] Cardroom Worker: Sahil Tanner MD Creatinine [Mass/Vol] 0.86 mg/dL Normal 0.70-1.20 [facility] Comment on above: Performed By: #### C DP, LIPRF, CP, PSAS #### [address] [address] Cardroom Worker: Sahil Tanner MD GFR/1.73 sq M.predicted among non-blacks MDRD (S/P/Bld) [Vol rate/Area] mL/min/{1.73_m2} Normal >60 [facility] Comment on above: Result Comment: These results [...] #### C DP, LIPRF, CP, PSAS #### [address] [address] Cardroom Worker: Sahil Tanner MD Glucose [Mass/Vol] 62 mg/dL Low 70-99 [facility] Comment on above: Performed By: #### C DP, LIPRF, CP, PSAS #### [address] [address] Cardroom Worker: Sahil Tanner MD Potassium [Moles/Vol] 6.1 mmol/L Critically high 3.7-5.3 [facility] Comment on above: Performed By: #### C DP, LIPRF, CP, PSAS #### [address] [address] Cardroom Worker: Sahil Tanner MD Protein [Mass/Vol] 6.7 g/dL Normal 6.4-8.3 [facility] Comment on above: Performed By: #### C DP, LIPRF, CP, PSAS #### [address] [address] Cardroom Worker: Sahil Tanner MD Sodium [Moles/Vol] 139 mmol/L Normal 135-144 [facility] Comment on above: Performed By: #### C DP, LIPRF, CP, PSAS #### [address] [address] Cardroom Worker: Sahil Tanner MD Urea nitrogen [Mass/Vol] 14 mg/dL Normal 6-20 [facility] Comment on above: Performed By: #### C DP, LIPRF, CP, PSAS #### [address] [id number] Cardroom Worker: Sahil Tanner MD Lipid Prof, Fastingon 2022 Cholesterol [Mass/Vol] 151 mg/dL Normal <200 [facility] Comment on above: Result Comment: Cholesterol Guidelines: <200 Desirable 200-240 Borderline >240 Undesirable Performed By: #### C DP, LIPRF, CP, PSAS #### [place] [address] Cardroom Worker: Sahil Tanner MD Cholesterol in HDL [Mass/Vol] 65 mg/dL Normal >40 [facility] Comment on above: Result Comment: HDL Guidelines: <40 Undesirable 40-59 Borderline >59 Desirable Performed By: #### C DP, LIPRF, CP, PSAS #### [address] [address] Cardroom Worker: Sahil Tanner MD Cholesterol in LDL [Mass/Vol] 76 mg/dL Normal 0-130 [facility] Comment on above: Result Comment: LDL Guidelines: <100 Desirable 100-129 Near to/above Desirable 130-159 Borderline >159 Undesirable Direct (measured) LDL and calculated LDL are not interchangeable tests. Performed By: #### C DP, LIPRF, CP, PSAS #### [address] [address] Cardroom Worker: Sahil Tanner MD Cholesterol.total/Chol esterol in HDL [Mass ratio] 2.3 {ratio} Normal <5 [facility] Comment on above: Performed By: #### C DP, LIPRF, CP, PSAS #### [address] [address] Cardroom Worker: Sahil Tanner MD Triglyceride,Fasting 51 mg/dL Normal <150 [facility] Comment on above: Result Comment: Triglyceride Guidelines: <150 Desirable 150-199 Borderline 200-499 High >499 Very high Based on AHA Guidelines for fasting triglyceride, August 2012. Performed By: #### C DP, LIPRF, CP, PSAS #### [employer] [address] [place], [place] [id number] Cardroom Worker: Sahil Tanner MD PSA, Screeningon 03-28-2023 Prostatic Spec. Ag 0.25 ng/mL Normal <4.1 [facility] Comment on above: Result Comment: The Jb ECLIA assay is used. Results obtained with different assay methods cannot be used interchangeably. Performed By: #### C DP, LIPRF, CP, PSAS #### [facility] [address] [place], [place] [id number] Cardroom Worker: Sahil Tanner MD CBC with Auto Differentialon 03-26-2023 Absolute Eos # 0.08 [facility] Absolute Immature Granulocyte [facility] Absolute Lymph # 1.17 [facility] Absolute [place] # 0.52 [facility] RS [facility] Basophils (Bld) [#/Vol] 0.03 10*3/uL [facility] Basophils/100 WBC (Bld) 1 % 0 - 2 % [facility] Eosinophils/100 WBC (Bld) 2 % 1 - 4 % [facility] Hematocrit (Bld) [Volume fraction] 41.2 % 40.7 - 50.3 % [facility] Hemoglobin (Bld) [Mass/Vol] 13.2 g/dL 13.0 - 17.0 g/dL [facility] Immature granulocytes/100 WBC (Bld) 0 % 0 [facility] Interpretation and review of laboratory results Abnormal [facility] Lymphocytes/100 WBC (Bld) 23 % Low 24 - 43 % [facility] MCH (RBC) [Entitic mass] 26.6 pg 25.2 - 33.5 pg [facility] MCHC (RBC) [Mass/Vol] 32.0 g/dL 28.4 - 34.8 g/dL [facility] MCV (RBC) [Entitic vol] 82.9 fL 82.6 - 102.9 fL [facility] Monocytes/100 WBC (Bld) 10 % 3 - 12 % [facility] NRBC Automated 0.0 0.0 per 100 WBC [facility] Platelet distribution width (Bld) [Ratio] 14.9 % High 11.8 - 14.4 % [facility] Platelet mean volume (Bld) [Entitic vol] 9.9 fL 8.1 - 13.5 fL [facility] Platelets (Bld) [#/Vol] 317 10*3/uL [facility] RBC (Bld) [#/Vol] 4.97 10*6/uL 4.21 - 5.7 7 m/uL [facility] RBC (Bld) [#/Vol] ANISOCYTOSIS PRESENT [facility] Segmented neutrophils/100 WBC (Bld) 64 % 36 - 65 % [facility] Segs Absolute 3.20 [facility] WBC (Bld) [#/Vol] 5.0 10*3/uL [facility] CBC with Diffon 03-26-2023 Abs. Basophil 0.03 k/uL Normal 0.00-0.20 [facility] Comment on above: Performed By: #### C DP, LIPRF, CP, PSAS #### [facility] [employer] [address] [place] [address] Cardroom Worker: Sahil Tanner MD Abs.Imm.Granulocyte <0.03 Normal 0.00-0.30 [facility] Comment on above: Performed By: #### C DP, LIPRF, CP, PSAS #### [facility] [employer] [address] [place] [address] Cardroom Worker: Sahil Tanner MD Abs.Neutrophil (Seg) 3.20 k/uL Normal 1.50-8.10 [facility] Comment on above: Performed By: #### C DP, LIPRF, CP, PSAS #### [facility] [employer] [address] [place] [address] Cardroom Worker: Sahil Tanner MD Basophils/100 WBC (Bld) 1 % Normal 0-2 [facility] Comment on above: Performed By: #### C DP, LIPRF, CP, PSAS #### [place] [address] Cardroom Worker: Sahil Tanner MD Eosinophils (Bld) [#/Vol] 0.08 10*3/uL Normal 0.00-0.44 [facility] Comment on above: Performed By: #### C DP, LIPRF, CP, PSAS #### [place] [address] Cardroom Worker: Sahil Tanner MD Eosinophils/100 WBC (Bld) 2 % Normal 1-4 [facility] Comment on above: Performed By: #### C DP, LIPRF, CP, PSAS #### [place] [address] Cardroom Worker: Sahil Tanner MD Erythrocyte distribution width (RBC) [Ratio] 14.9 % High 11.8-14.4 [facility] Comment on above: Performed By: #### C DP, LIPRF, CP, PSAS #### [place] [address] Cardroom Worker: Sahil Tanner MD Hematocrit (Bld) [Volume fraction] 41.2 % Normal 40.7-50.3 [facility] Comment on above: Performed By: #### C DP, LIPRF, CP, PSAS #### [place] [address] Cardroom Worker: Sahil Tanner MD Hemoglobin (Bld) [Mass/Vol] 13.2 g/dL Normal 13.0-17.0 [facility] Comment on above: Performed By: #### C DP, LIPRF, CP, PSAS #### [address] [address] Cardroom Worker: Sahil Tanner MD Immature granulocytes/100 WBC (Bld) 0 % Normal 0 [facility] Comment on above: Performed By: #### C DP, LIPRF, CP, PSAS #### [address] [address] Cardroom Worker: Sahil Tanner MD Lymphocytes (Bld) [#/Vol] 1.17 10*3/uL Normal 1.10-3.70 [facility] Comment on above: Performed By: #### C DP, LIPRF, CP, PSAS #### [place] [address] Cardroom Worker: Sahil Tanner MD Lymphocytes/100 WBC (Bld) 23 % Low 24-43 [facility] Comment on above: Performed By: #### C DP, LIPRF, CP, PSAS #### [place] [address] Cardroom Worker: Sahil Tanner MD MCH (RBC) [Entitic mass] 26.6 pg Normal 25.2-33.5 [facility] Comment on above: Performed By: #### C DP, LIPRF, CP, PSAS #### [place] [address] Cardroom Worker: Sahil Tanner MD MCHC (RBC) [Mass/Vol] 32.0 g/dL Normal 28.4-34.8 [facility] Comment on above: Performed By: #### C DP, LIPRF, CP, PSAS #### [place] [address] Cardroom Worker: Sahil Tanner MD MCV (RBC) [Entitic vol] 82.9 fL Normal 82.6-102.9 [facility] Comment on above: Performed By: #### C DP, LIPRF, CP, PSAS #### [address] [address] Cardroom Worker: Sahil Tanner MD Monocytes (Bld) [#/Vol] 0.52 10*3/uL Normal 0.10-1.20 [facility] Comment on above: Performed By: #### C DP, LIPRF, CP, PSAS #### [address] [address] Cardroom Worker: Sahil Tanner MD Monocytes/100 WBC (Bld) 10 % Normal 3-12 [facility] Comment on above: Performed By: #### C DP, LIPRF, CP, PSAS #### [address] [address] Cardroom Worker: Sahil Tanner MD Neutrophil (Seg) 64 % Normal 36-65 [facility] Comment on above: Performed By: #### C DP, LIPRF, CP, PSAS #### [address] [address] Cardroom Worker: Sahil Tanner MD NRBC Automated 0.0 per 100 WBC Normal 0.0 [facility] Comment on above: Performed By: #### C DP, LIPRF, CP, PSAS #### [address] [address] Cardroom Worker: Sahil Tanner MD Platelet mean volume (Bld) [Entitic vol] 9.9 fL Normal 8.1-13.5 [facility] Comment on above: Performed By: #### C DP, LIPRF, CP, PSAS #### [address] [address] Cardroom Worker: Sahil Tanner MD Platelets (Bld) [#/Vol] 317 10*3/uL Normal 138-453 [facility] Comment on above: Performed By: #### C DP, LIPRF, CP, PSAS #### [address] [address] Cardroom Worker: Sahil Tanner MD RBC (Bld) [#/Vol] 4.97 10*6/uL Normal 4.21-5.77 [facility] Comment on above: Performed By: #### C DP, LIPRF, CP, PSAS #### [facility] [employer] [address] [place] [address] Cardroom Worker: Sahil Tanner MD RBC morphology finding Nom (Bld) ANISOCYTOSIS PRESENT Normal [facility] Comment on above: Performed By: #### C DP, LIPRF, CP, PSAS #### [facility] [employer] [facility] [place] [address] Cardroom Worker: Sahil Tanner MD WBC (Bld) [#/Vol] 5.0 10*3/uL Normal 3.5-11.3 [facility] Comment on above: Performed By: #### C DP, LIPRF, CP, PSAS #### [address] [address] Cardroom Worker: Sahil Tanner MD MRI BRAIN W WO CONTRASTon MRI BRAIN W WO CONTRAST EXAMINATION: MRI OF THE BRAIN WITHOUT AND WITH CONTRAST 08/31/2022 4:17 pm TECHNIQUE: Multiplanar multisequence MRI of the head/brain was performed without and with the administration of intravenous contrast. 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 No acute abnormality. [facility] CONSOLIDATED EXAMINATION: MRI OF THE BRAIN WITHOUT AND WITH CONTRAST 08/31/2022 4:17 pm TECHNIQUE: Multiplanar multisequence MRI of the head/brain was performed without and with the administration of intravenous contrast. COMPARISON: CT head 02/28/2022 HISTORY: ORDERING SYSTEM PROVIDED HISTORY: SAH (subarachnoid hemorrhage) ([facility]) TECHNOLOGIST PROVIDED HISTORY: STAT Creatinine as needed:->Yes intracranial bleed and SAH wo known etiology What is the sedation requirement?->None Reason for Exam: intracranial bleed and SAH wo known etiology, SAH (subarachnoid hemorrhage) ([facility]) Additional signs and symptoms: hx of brain [...] The soft tissues demonstrate no acute abnormality. [facility] CONSOL[facility] Des Iglesias MD - 09/01/2022 EXAMINATION: MRI OF THE BRAIN WITHOUT AND WITH CONTRAST 08/31/2022 4:17 pm TECHNIQUE: Multiplanar multisequence MRI of the head/brain was performed without and with the administration of intravenous contrast. COMPARISON: CT head 02/28/2022 HISTORY: ORDERING SYSTEM PROVIDED HISTORY: SAH (subarachnoid hemorrhage) ([facility]) TECHNOLOGIST PROVIDED HISTORY: STAT Creatinine as needed:->Yes [...] sequela of prior infarct. No acute abnormality. [employer] Work Phone: MRI CERVICAL SPINE WO CONTRA [...] Des Iglesias MD 09/01/22 Final result Normal [facility] 1. Multilevel degenerative disease and facet arthropathy. 2. Spinal canal stenoses, moderate at C6-7 and mild at C4-5 and C5-6. 3. Multilevel neural foraminal as detailed above and greatest involving the right C6, bilateral C7, and right C8 neural foramina where it is severe. [facility] RIS CONSOLIDATED EXAMINATION: MRI OF THE [...] and facet hypertrophy. No spinal canal stenosis. [facility] CONSOLIDATED Des Iglesias MD - [...] C8 neural foramina where it is severe. [employer] Work Phone: No Panel InformationOrdered By: Des Iglesias on 09-01-2022 [employer] Work Phone: Creatinine W/GFR Point of Ca reon 08-31-2022 Creatinine [Mass/Vol] 0.81 mg/dL 0.51 - 1.19 mg/dL [employer] eGFR, POC mL/min/1.73m 2 [employer] Comment on above: Effective Aug 27, 2022 [...] GFR Non- >60 60 - PINF mL/min [employer] GFR/1.73 sq M.predicted MDRD (S/P/Bld) [Vol rate/Area] mL/min 60 - PINF mL/min [employer] No Panel Informationon 08-31 Radiology Study observation (narrative) [facility] Work Phone: FLUORO FOR SURGICAL PROCEDUR ESon 07-19-2022 Radiology exam is complete. No Radiologist dictation. Please follow up with ordering provider. [facility] RIS CONSOLIDATED APTTon 07-05-2022 aPTT Coag (Bld) [Time] 25.5 s [facility] Comment on above: IV Heparin Therapy Range: 48.6-77.8 BUN & Creatinineon Creatinine [Mass/Vol] 0.78 mg/dL 0.7 - 1.2 mg/dL [facility] GFR >60 60 - PI NF mL/min [facility] GFR Non- >60 60 - PINF mL/min [facility] GFR/1.73 sq M.predicted MDRD (S/P/Bld) [Vol rate/Area] [facility] Comment on above: Average GFR for 50-5 9 years old: 93 mL/min/1.73sq m Chronic Kidney Disease: <60 mL/min/1.73sq m Kidney failure: <15 mL/min/1.73sq m eGFR calculated using average adult body mass. Additional eGFR calculator available at: http://www.[employer]/multiple_crcl_2012.htm Urea nitrogen (BldV) [Mass/Vol] 17 mg/dL 6 - 20 mg/dL [facility] CBCon 07-05-2022 Hematocrit (Bld) [Volume fraction] 42.8 % 40.7 - 50.3 % [facility] Hemoglobin (Bld) [Mass/Vol] 13.6 g/dL 13 - 17 g/dL [facility] MCH (RBC) [Entitic mass] 26.8 pg 25.2 - 33.5 pg [facility] [employer] MCHC (RBC) [Mass/Vol] 31.8 g/dL 28.4 - 34.8 g/dL [facility] MCV (RBC) [Entitic vol] 84.4 fL 82.6 - 102.9 fL [facility] NRBC Automated 0.0 0.0 per 100 WBC [facility] Platelet distribution width (Bld) [Ratio] 15.2 % High 11.8 - 14.4 % [facility] [employer] Platelet mean volume (Bld) [Entitic vol] 9.8 fL 8.1 - 13.[address] [facility] [employer] Platelets (Bld) [#/Vol] 318 10*3/uL [facility] [employer] RBC (Bld) [#/Vol] 5.07 10*6/uL 4.21 - 5.7 7 m/uL [facility] [employer] WBC (Bld) [#/Vol] 5.9 10*3/uL [facility] [employer] EKG 12 LeadOrdered By: Lázaro Alba on 07-05-2022 Atrial Rate 53 BPM [facility] Work Phone: P [place] 68 degrees [facility] [employer] Work Phone: P-R Interval 162 ms [facility] [employer] Work Phone: Q-T Interval 446 ms [facility] Work Phone: QRS Duration 104 ms [facility] [employer] Work Phone: QTc Calculation (Bazett) 418 ms [facility] [employer] Work Phone: R [place] -101 degrees [facility] [employer] Work Phone: T [place] 6 degrees [facility] Work Phone: Ventricular Rate 53 BPM [facility] Work Phone: [facility] Work Phone: EKG 12 Leadon 07-05-2022 Sinus bradycardia Right superior axis deviation St T abnormalities Inferior leads Abnormal ECG No previous ECGs available [facility] Lázaro Jiménez MD - 07/05/2022 Sinus bradycardia Right superior axis deviation St T abnormalities Inferior leads Abnormal ECG No previous ECGs available [facility] Work Phone: Electrolyte Panelon 08-11-20 22 Anion gap [Moles/Vol] 8 mmol/L Low 9 - 17 mmol/L [facility] Chloride [Moles/Vol] 103 mmol/L 98 - 10 7 mmol/L [facility] CO2 [Moles/Vol] 24 mmol/L 20 - 31 mmol/L [facility] Potassium [Moles/Vol] 4.2 mmol/L 3.7 - 5.3 mmol/L [facility] Sodium [Moles/Vol] 135 mmol/L 135 - 144 mmol/L [facility] Glucose, Randomon 07-05-2022 Glucose [Mass/Vol] 100 mg/dL High 70 - 99 mg/dL [facility] No Panel Informationon 07-05 Interpretation and review of laboratory results Abnormal [facility] Protime-INRon 07-05-2022 INR Coag (Bld) [Relative time] 1.0 {INR} [facility] Comment on above: Therapeutic Range: Moderate Anticoagulant Intensity: INR = 2.0-3.0 High Anticoagulant Intensity: INR = 2.5-3.5 PT Coag (PPP) [Time] 10.5 s [facility] TYPE AND SCREENon 07-05-2022 ABO/Rh Positive [facility] Arm Band Number [id number] [facility] Expiration Date 07/22/2022,2356 [facility] CTA HEAD W CONTRASTOrdered B y: Carolyn Joseph on 09-06-2021 1. No acute intracranial abnormality. 2. No acute abnormality or flow-limiting stenosis of the major arteries of the head. [facility] Work Phone: EXAMINATION: CTA OF THE HEAD [...] ORDERING SYSTEM PROVIDED HISTORY: SAH (subarachnoid hemorrhage) ([facility]) TECHNOLOGIST PROVIDED HISTORY: spont SAH Reason for [...] venous sinus thrombosis on this non-dedicated study. [employer] Work Phone: Mac, [facility] Incoming Radiant Results From [employer] - 09/06/2021 9:54 AM EDT EXAMINATION: CTA [...] ORDERING SYSTEM PROVIDED HISTORY: SAH (subarachnoid hemorrhage) ([facility]) TECHNOLOGIST PROVIDED HISTORY: spont SAH Reason for [...] of the major arteries of the head. [facility] Work Phone: [facility] Phone: Hep C Abon 09-02-2021 Hep C Ab Non-Reactive Normal NR [facility] Comment on above: Result Comment: The hepatitis [...] HCV, PSAS, HIVCMB, LIPRF, CP, CDP #### [employer] [address] [place] [id number] Cardroom Worker: Sahil Tanner MD PSA, Screeningon 09-02-2021 Prostatic Spec. Ag 0.24 ug/L Normal <4.1 [facility] Comment on above: Result Comment: The Jb ECLIA assay is used. Results obtained with different assay methods cannot be used interchangeably. Performed By: #### A HCV, PSAS, HIVCMB, LIPRF, CP, CDP #### [employer] [address] [place] [address] Cardroom Worker: Sahil Tanner MD CBC with Diffon 09-01-2021 Abs. Basophil <0.03 Normal 0.00-0.20 [facility] Comment on above: Performed By: #### A HCV, PSAS, HIVCMB, LIPRF, CP, CDP #### [address] [address] Cardroom Worker: Sahil Tanner MD Abs.Imm.Granulocyte <0.03 Normal 0.00-0.30 [facility] Comment on above: Performed By: #### A HCV, PSAS, HIVCMB, LIPRF, CP, CDP #### [address] [address] Cardroom Worker: Sahil Tanner MD Abs.Neutrophil (Seg) 3.71 k/uL Normal 1.50-8.10 [facility] Comment on above: Performed By: #### A HCV, PSAS, HIVCMB, LIPRF, CP, CDP #### [address] [address] Cardroom Worker: Sahil Tanner MD Auto Diff Performed NOT REPORTED Normal [facility] Comment on above: Performed By: #### A HCV, PSAS, HIVCMB, LIPRF, CP, CDP #### [address] [address] Cardroom Worker: Sahil Tanner MD Basophils/100 WBC (Bld) 0 % Normal 0-2 [facility] Comment on above: Performed By: #### A HCV, PSAS, HIVCMB, LIPRF, CP, CDP #### [address] [address] Cardroom Worker: Sahil Tanner MD Eosinophils (Bld) [#/Vol] 0.06 10*3/uL Normal 0.00-0.44 [facility] Comment on above: Performed By: #### A HCV, PSAS, HIVCMB, LIPRF, CP, CDP #### [address] [address] Cardroom Worker: Sahil Tanner MD Eosinophils/100 WBC (Bld) 1 % Normal 1-4 [facility] Comment on above: Performed By: #### A HCV, PSAS, HIVCMB, LIPRF, CP, CDP #### [address] [address] Cardroom Worker: Sahil Tanner MD Erythrocyte distribution width (RBC) [Ratio] 13.6 % Normal 11.8-14.4 [facility] Comment on above: Performed By: #### A HCV, PSAS, HIVCMB, LIPRF, CP, CDP #### [address] [address] Cardroom Worker: Sahil Tanner MD Hematocrit (Bld) [Volume fraction] 45.1 % Normal 40.7-50.3 [facility] Comment on above: Performed By: #### A HCV, PSAS, HIVCMB, LIPRF, CP, CDP #### [address] [address] Cardroom Worker: Sahil Tanner MD Hemoglobin (Bld) [Mass/Vol] 14.1 g/dL Normal 13.0-17.0 [facility] Comment on above: Performed By: #### A HCV, PSAS, HIVCMB, LIPRF, CP, CDP #### [address] [address] Cardroom Worker: Sahil Tanner MD Immature granulocytes/100 WBC (Bld) 0 % Normal 0 [facility] Comment on above: Performed By: #### A HCV, PSAS, HIVCMB, LIPRF, CP, CDP #### [address] [address] Cardroom Worker: Sahil Tanner MD Lymphocytes (Bld) [#/Vol] 0.97 10*3/uL Low 1.10-3.70 [facility] Comment on above: Performed By: #### A HCV, PSAS, HIVCMB, LIPRF, CP, CDP #### [address] [place] [address] Cardroom Worker: Sahil Tanner MD Lymphocytes/100 WBC (Bld) 18 % Low 24-43 [facility] Comment on above: Performed By: #### A HCV, PSAS, HIVCMB, LIPRF, CP, CDP #### [address] [address] Cardroom Worker: Sahil Tanner MD MCH (RBC) [Entitic mass] 27.1 pg Normal 25.2-33.5 [facility] Comment on above: Performed By: #### A HCV, PSAS, HIVCMB, LIPRF, CP, CDP #### [address] [address] Cardroom Worker: Sahil Tanner MD MCHC (RBC) [Mass/Vol] 31.3 g/dL Normal 28.4-34.8 [facility] Comment on above: Performed By: #### A HCV, PSAS, HIVCMB, LIPRF, CP, CDP #### [address] [address] Cardroom Worker: Sahil Tanner MD MCV (RBC) [Entitic vol] 86.6 fL Normal 82.6-102.9 [facility] Comment on above: Performed By: #### A HCV, PSAS, HIVCMB, LIPRF, CP, CDP #### [address] [address] Cardroom Worker: Sahil Tanner MD Monocytes (Bld) [#/Vol] 0.51 10*3/uL Normal 0.10-1.20 [facility] Comment on above: Performed By: #### A HCV, PSAS, HIVCMB, LIPRF, CP, CDP #### [address] [address] Cardroom Worker: Sahil Tanner MD Monocytes/100 WBC (Bld) 10 % Normal 3-12 [facility] Comment on above: Performed By: #### A HCV, PSAS, HIVCMB, LIPRF, CP, CDP #### [address] [address] Cardroom Worker: Sahil Tanner MD Neutrophil (Seg) 70 % High 36-65 [facility] Comment on above: Performed By: #### A HCV, PSAS, HIVCMB, LIPRF, CP, CDP #### [address] [address] Cardroom Worker: Sahil Tanner MD NRBC Automated 0.0 per 100 WBC Normal 0.0 [facility] Comment on above: Performed By: #### A HCV, PSAS, HIVCMB, LIPRF, CP, CDP #### [address] [address] Cardroom Worker: Sahil Tanner MD Platelet Estimate NOT REPORTED Normal [facility] Comment on above: Performed By: #### A HCV, PSAS, HIVCMB, LIPRF, CP, CDP #### [address] [address] Cardroom Worker: Sahil Tanner MD Platelet mean volume (Bld) [Entitic vol] 10.6 fL Normal 8.1-13.5 [facility] Comment on above: Performed By: #### A HCV, PSAS, HIVCMB, LIPRF, CP, CDP #### [address] [address] Cardroom Worker: Sahil Tanner MD Platelets (Bld) [#/Vol] 305 10*3/uL Normal 138-453 [facility] Comment on above: Performed By: #### A HCV, PSAS, HIVCMB, LIPRF, CP, CDP #### [address] [address] Cardroom Worker: Sahil Tanner MD RBC (Bld) [#/Vol] 5.21 10*6/uL Normal 4.21-5.77 [facility] Comment on above: Performed By: #### A HCV, PSAS, HIVCMB, LIPRF, CP, CDP #### [facility] [address] [place] [address] Cardroom Worker: Sahil Tanner MD RBC morphology finding Nom (Bld) NOT REPORTED Normal [facility] Comment on above: Performed By: #### A HCV, PSAS, HIVCMB, LIPRF, CP, CDP #### [facility] [place] [address] Cardroom Worker: Sahil Tanner MD WBC (Bld) [#/Vol] 5.3 10*3/uL Normal 3.5-11.3 [facility] Comment on above: Performed By: #### A HCV, PSAS, HIVCMB, LIPRF, CP, CDP #### [facility] [place] [address] Cardroom Worker: Sahil Tanner MD WBC Morphology NOT REPORTED Normal [facility] Comment on above: Performed By: #### A HCV, PSAS, HIVCMB, LIPRF, CP, CDP #### [facility] [address] [place] [address] Cardroom Worker: Sahil Tanner MD Comp Metabolic Profon 2020 (cont.) Normal [facility] Comment on above: Result Comment: Aver age GFR for 50-59 years old: 93 mL/min/1.73sq m Chronic Kidney Disease: <60 mL/min/1.73sq m Kidney failure: <15 mL/min/1.73sq m eGFR calculated using average adult body mass. Additional eGFR calculator available at: http://www.[employer].iCAD/multiple_crcl_2012.htm Performed By: #### A HCV, PSAS, HIVCMB, LIPRF, CP, CDP #### [address] [address] Cardroom Worker: Sahil Tanner MD Albumin [Mass/Vol] 4.7 g/dL Normal 3.5-5.2 [facility] Comment on above: Performed By: #### A HCV, PSAS, HIVCMB, LIPRF, CP, CDP #### [address] [address] Cardroom Worker: Sahil Tanner MD Albumin/Glob Ratio 2.0 Normal 1.0-2.5 [facility] Comment on above: Performed By: #### A HCV, PSAS, HIVCMB, LIPRF, CP, CDP #### [address] [address] Cardroom Worker: Sahil Tanner MD Alkaline Phos 73 U/L Normal 40-129 [facility] Comment on above: Performed By: #### A HCV, PSAS, HIVCMB, LIPRF, CP, CDP #### [address] [address] Cardroom Worker: Sahil Tanner MD ALT [Catalytic activity/Vol] 35 U/L Normal 5-41 [facility] Comment on above: Performed By: #### A HCV, PSAS, HIVCMB, LIPRF, CP, CDP #### [address] [address] Cardroom Worker: Sahil Tanner MD Anion gap [Moles/Vol] 11 mmol/L Normal 9-17 [facility] Comment on above: Performed By: #### A HCV, PSAS, HIVCMB, LIPRF, CP, CDP #### [address] [address] Cardroom Worker: Sahil Tanner MD AST [Catalytic activity/Vol] 43 U/L High <40 [facility] Comment on above: Performed By: #### A HCV, PSAS, HIVCMB, LIPRF, CP, CDP #### [facility] [address] [place] [address] Cardroom Worker: Sahil Tanner MD Bilirubin [Mass/Vol] 0.19 mg/dL Low 0.3-1.2 [facility] Comment on above: Performed By: #### A HCV, PSAS, HIVCMB, LIPRF, CP, CDP #### [address] [address] Cardroom Worker: Sahil Tanner MD BUN/CRE Ratio NOT REPORTED Normal 9-20 [facility] Comment on above: Performed By: #### A HCV, PSAS, HIVCMB, LIPRF, CP, CDP #### [address] [address] Cardroom Worker: Sahil Tanner MD Calcium [Mass/Vol] 9.4 mg/dL Normal 8.6-10.4 [facility] Comment on above: Performed By: #### A HCV, PSAS, HIVCMB, LIPRF, CP, CDP #### [address] [address] Cardroom Worker: Sahil Tanner MD Chloride [Moles/Vol] 105 mmol/L Normal 98-107 [facility] Comment on above: Performed By: #### A HCV, PSAS, HIVCMB, LIPRF, CP, CDP #### [address] [address] Cardroom Worker: Sahil Tanner MD CO2 [Moles/Vol] 24 mmol/L Normal 20-31 [facility] Comment on above: Performed By: #### A HCV, PSAS, HIVCMB, LIPRF, CP, CDP #### [address] [address] Cardroom Worker: Sahil Tanner MD Creatinine [Mass/Vol] 0.85 mg/dL Normal 0.70-1.20 [facility] Comment on above: Performed By: #### A HCV, PSAS, HIVCMB, LIPRF, CP, CDP #### [facility] [address] [place] [address] Cardroom Worker: Sahil Tanner MD GFR, Amer >60 Normal >60 [facility] Comment on above: Performed By: #### A HCV, PSAS, HIVCMB, LIPRF, CP, CDP #### [facility] [address] [place] [address] Cardroom Worker: Sahil Tanner MD GFR,non Amer >60 Normal >60 [facility] Comment on above: Performed By: #### A HCV, PSAS, HIVCMB, LIPRF, CP, CDP #### [facility] [address] [place] [address] Cardroom Worker: Sahil Tanner MD Glucose [Mass/Vol] 103 mg/dL High 70-99 [facility] Comment on above: Performed By: #### A HCV, PSAS, HIVCMB, LIPRF, CP, CDP #### [facility] [address] [place] [address] Cardroom Worker: Sahil Tanner MD Potassium [Moles/Vol] 5.2 mmol/L Normal 3.7-5.3 [facility] Comment on above: Performed By: #### A HCV, PSAS, HIVCMB, LIPRF, CP, CDP #### [facility] [address] [place] [address] Cardroom Worker: Sahil Tanner MD Protein [Mass/Vol] 7.0 g/dL Normal 6.4-8.3 [facility] Comment on above: Performed By: #### A HCV, PSAS, HIVCMB, LIPRF, CP, CDP #### [facility] [address] [place] [address] Cardroom Worker: Sahil Tanner MD Sodium [Moles/Vol] 140 mmol/L Normal 135-144 [facility] Comment on above: Performed By: #### A HCV, PSAS, HIVCMB, LIPRF, CP, CDP #### [facility] [address] [place] [address] Cardroom Worker: Sahil Tanner MD Staging: NOT REPORTED Normal [facility] Comment on above: Performed By: #### A HCV, PSAS, HIVCMB, LIPRF, CP, CDP #### [facility] [address] [place] [address] Cardroom Worker: Sahil Tanner MD Urea nitrogen [Mass/Vol] 15 mg/dL Normal 6-20 [facility] Comment on above: Performed By: #### A HCV, PSAS, HIVCMB, LIPRF, CP, CDP #### [address] [address] Cardroom Worker: Sahil Tanner MD HIV Ag/Abon 09-01-2021 HIV Ag/Ab Non-Reactive Normal NR [facility] Comment on above: Result Comment: No l aboratory evidence of HIV infection. If acute HIV infection is suspected, consider testing for HIV-1 RNA. Performed By: #### A HCV, PSAS, HIVCMB, LIPRF, CP, CDP #### [address] [address] Cardroom Worker: Sahil Tanner MD Lipid Prof, Fastingon 2020 Cholesterol [Mass/Vol] 158 mg/dL Normal <200 [facility] Comment on above: Result Comment: Cholesterol Guidelines: <200 Desirable 200-240 Borderline >240 Undesirable Performed By: #### A HCV, PSAS, HIVCMB, LIPRF, CP, CDP #### [address] [address] Cardroom Worker: Sahil Tanner MD Cholesterol in HDL [Mass/Vol] 66 mg/dL Normal >40 [facility] Comment on above: Result Comment: HDL Guidelines: <40 Undesirable 40-59 Borderline >59 Desirable Performed By: #### A HCV, PSAS, HIVCMB, LIPRF, CP, CDP #### [facility] [address] [place] [address] Cardroom Worker: Sahil Tanner MD Cholesterol in LDL [Mass/Vol] 82 mg/dL Normal 0-130 [facility] Comment on above: Result Comment: LDL Guidelines: <100 Desirable 100-129 Near to/above Desirable 130-159 Borderline >159 Undesirable Direct (measured) LDL and calculated LDL are not interchangeable tests. Performed By: #### A HCV, PSAS, HIVCMB, LIPRF, CP, CDP #### [facility] [address] [place] [address] Cardroom Worker: Sahil Tanner MD Cholesterol,VLDL NOT REPORTED Normal 1-30 [facility] Comment on above: Performed By: #### A HCV, PSAS, HIVCMB, LIPRF, CP, CDP #### [employer] [address] [place] [address] Cardroom Worker: Sahil Tanner MD Cholesterol.total/Chol esterol in HDL [Mass ratio] 2.4 {ratio} Normal <5 [facility] Comment on above: Performed By: #### A HCV, PSAS, HIVCMB, LIPRF, CP, CDP #### [facility] [address] [place] [address] Cardroom Worker: Sahil Tanner MD Triglyceride,Fasting 51 mg/dL Normal <150 [facility] Comment on above: Result Comment: Triglyceride Guidelines: <150 Desirable 150-199 Borderline 200-499 High >499 Very high Based on AHA Guidelines for fasting triglyceride, August 2012. Performed By: #### A HCV, PSAS, HIVCMB, LIPRF, CP, CDP #### [employer] [address] [place] [address] Cardroom Worker: Sahil Tanner MD CTA HEAD W CONTRASTOrdered B y: Samantha Husain on 03-08-2021 1. No acute intracranial abnormality. 2. Unremarkable CTA of the head. [employer] Phone: EXAMINATION: CTA OF THE HEAD WITH [...] ORDERING SYSTEM PROVIDED HISTORY: SAH (subarachnoid hemorrhage) ([facility]) TECHNOLOGIST PROVIDED HISTORY: Reason for Exam: recheck [...] venous sinus thrombosis on this non-dedicated study. [employer] Phone: [place], [facility] Incoming Radiant Results From [employer] - 03/08/2021 10:33 AM EDT EXAMINATION: CTA [...] ORDERING SYSTEM PROVIDED HISTORY: SAH (subarachnoid hemorrhage) ([facility]) TECHNOLOGIST PROVIDED HISTORY: Reason for Exam: recheck [...] abnormality. 2. Unremarkable CTA of the head. [employer] Work Phone: CT LUMBAR SPINE WO CONTRASTo [...] L5 and on the right at L5-S1. [employer]- [place], [place] EXAMINATION: CT OF THE LUMBAR SPINE WITHOUT [...] entering the posterior epidural space at T11-T12. [facility]- [place], [place], [employer] Incoming Radiant Results From [employer] - 12/22/2020 7:03 PM EST EXAMINATION: CT [...] L5 and on the right at L5-S1. [facility], [place] BASIC METABOLIC PANELon 11-25 Anion gap [Moles/Vol] 9 mmol/L 9 - 17 mmol/L [place], [place] Bun/Cre Ratio NOT REPORTED [place] Calcium [Mass/Vol] 8.8 mg/dL 8.6 - 10. 4 mg/dL [place] Chloride [Moles/Vol] 104 mmol/L 98 - 10 7 mmol/L [place] CO2 [Moles/Vol] 23 mmol/L 20 - 31 mmol/L [place] Creatinine [Mass/Vol] 0.83 mg/dL 0.7 - 1.2 mg/dL [place] GFR >60 >60 mL/min [place] GFR Non- >60 >60 mL/min [place] GFR/1.73 sq M predicted among non-blacks MDRD (S/P/Bld) [Vol rate/Area] [place] Comment on above: Average GFR for 50-5 9 years old: 93 mL/min/1.73sq m Chronic Kidney Disease: <60 mL/min/1.73sq m Kidney failure: <15 mL/min/1.73sq m eGFR calculated using average adult body mass. Additional eGFR calculator available at: http://www.[employer]/multiple_crcl_2012.htm GFR/1.73 sq M predicted among non-blacks MDRD (S/P/Bld) [Vol rate/Area] NOT REPORTED [place] Glucose [Mass/Vol] 91 mg/dL 70 - 99 mg/dL [place] Potassium [Moles/Vol] 4.2 mmol/L 3.7 - 5.3 mmol/L [place] Sodium [Moles/Vol] 136 mmol/L 135 - 144 mmol/L [place] Urea nitrogen [Mass/Vol] 11 mg/dL 6 - 20 mg/dL [place] CBC WITH AUTO DIFFERENTIALon 12-13-2020 Basophils (Bld) [#/Vol] 0.03 10*3/uL [place] Basophils/100 WBC (Bld) 1 % 0 - 2 % [place] Differential Type NOT REPORTED [place] Eosinophils (Bld) [#/Vol] 0.07 10*3/uL [place] Eosinophils/100 WBC (Bld) 1 % 1 - 4 % [place] Erythrocyte distribution width (RBC) [Ratio] 13.5 % 11.8 - 14.4 % [place] Hematocrit (Bld) [Volume fraction] 42.6 % 40.7 - 50.3 % [place] Hemoglobin (Bld) [Mass/Vol] 14.2 g/dL 13 - 17 g/dL [place] Immature granulocytes (Bld) [#/Vol] 10*3/uL [place] Immature granulocytes (Bld) [#/Vol] 0 % 0 [place] Interpretation and review of laboratory results Abnormal [place] Lymphocytes (Bld) [#/Vol] 1.04 10*3/uL Low [place] Lymphocytes/100 WBC (Bld) 17 % Low 24 - 43 % [place] MCH (RBC) [Entitic mass] 27.0 pg 25.2 - 33.5 pg [place] MCHC (RBC) [Mass/Vol] 33.3 g/dL 28.4 - 34.8 g/dL [place] MCV (RBC) [Entitic vol] 81.1 fL Low 82.6 - 102.9 fL [place] Monocytes (Bld) [#/Vol] 0.71 10*3/uL [place] Monocytes/100 WBC (Bld) 12 % 3 - 12 % [place] Platelet mean volume (Bld) [Entitic vol] 9.5 fL 8.1 - 13.5 fL [place] Platelets (Bld) [#/Vol] NOT REPORTED [place] Platelets (Bld) [#/Vol] 358 10*3/uL [place] RBC (Bld) [#/Vol] 5.25 10*6/uL 4.21 - 5.7 7 m/uL [place] RBC morphology finding Nom (Bld) MICROCYTOSIS PRESENT [place] Segmented neutrophils/100 WBC (Bld) 69 % High 36 - 65 % [place] Segs Absolute 4.11 [place] WBC (Bld) [#/Vol] 6.0 10*3/uL [place] WBC (Bld) [#/Vol] 0.0 10*3/uL 0.0 per 10 0 WBC [place] WBC Morphology NOT REPORTED [place] Magnesiumon 12-13-2020 Magnesium [Mass/Vol] 1.9 mg/dL 1.6 - 2 .6 mg/dL [place] BASIC METABOLIC PANELon 11-25 Anion gap [Moles/Vol] 12 mmol/L 9 - 17 mmol/L [place] Bun/Cre Ratio NOT REPORTED [place] Calcium [Mass/Vol] 8.9 mg/dL 8.6 - 10. 4 mg/dL [place] Chloride [Moles/Vol] 102 mmol/L 98 - 10 7 mmol/L [place] CO2 [Moles/Vol] 21 mmol/L 20 - 31 mmol/L [place] Creatinine [Mass/Vol] 0.83 mg/dL 0.7 - 1.2 mg/dL [place] GFR >60 >60 mL/min [place] GFR Non- >60 >60 mL/min [place] GFR/1.73 sq M predicted among non-blacks MDRD (S/P/Bld) [Vol rate/Area] [place] Comment on above: Average GFR for 50-5 9 years old: 93 mL/min/1.73sq m Chronic Kidney Disease: <60 mL/min/1.73sq m Kidney failure: <15 mL/min/1.73sq m eGFR calculated using average adult body mass. Additional eGFR calculator available at: http://www.[employer].iCAD/multiple_crcl_2012.htm GFR/1.73 sq M predicted among non-blacks MDRD (S/P/Bld) [Vol rate/Area] NOT REPORTED [place] Glucose [Mass/Vol] 91 mg/dL 70 - 99 mg/dL [place] Potassium [Moles/Vol] 4.3 mmol/L 3.7 - 5.3 mmol/L [place] Sodium [Moles/Vol] 135 mmol/L 135 - 144 mmol/L [place] Urea nitrogen [Mass/Vol] 12 mg/dL 6 - 20 mg/dL [place] CBC WITH AUTO DIFFERENTIALon 12-12-2020 Basophils (Bld) [#/Vol] 0.04 10*3/uL [place] Basophils/100 WBC (Bld) 1 % 0 - 2 % [place] Differential Type NOT REPORTED [place] Eosinophils (Bld) [#/Vol] 0.06 10*3/uL [place] Eosinophils/100 WBC (Bld) 1 % 1 - 4 % [place] Erythrocyte distribution width (RBC) [Ratio] 13.6 % 11.8 - 14.4 % [place] Hematocrit (Bld) [Volume fraction] 44.5 % 40.7 - 50.3 % [place] Hemoglobin (Bld) [Mass/Vol] 14.5 g/dL 13 - 17 g/dL [place] Immature granulocytes (Bld) [#/Vol] 0.03 10*3/uL [place] Immature granulocytes (Bld) [#/Vol] 0 % 0 [place] Interpretation and review of laboratory results Abnormal [place] Lymphocytes (Bld) [#/Vol] 1.26 10*3/uL [place] Lymphocytes/100 WBC (Bld) 17 % Low 24 - 43 % [place] MCH (RBC) [Entitic mass] 27.2 pg 25.2 - 33.5 pg [place] MCHC (RBC) [Mass/Vol] 32.6 g/dL 28.4 - 34.8 g/dL [place] MCV (RBC) [Entitic vol] 83.3 fL 82.6 - 102.9 fL [place] Monocytes (Bld) [#/Vol] 0.76 10*3/uL [place] Monocytes/100 WBC (Bld) 10 % 3 - 12 % [place] Platelet mean volume (Bld) [Entitic vol] 9.5 fL 8.1 - 13.5 fL [place] Platelets (Bld) [#/Vol] 359 10*3/uL [place] Platelets (Bld) [#/Vol] NOT REPORTED [place] RBC (Bld) [#/Vol] 5.34 10*6/uL 4.21 - 5.7 7 m/uL [place] RBC morphology finding Nom (Bld) NOT REPORTED [place] Segmented neutrophils/100 WBC (Bld) 71 % High 36 - 65 % [place] Segs Absolute 5.22 [place] WBC (Bld) [#/Vol] 7.4 10*3/uL [place] WBC (Bld) [#/Vol] 0.0 10*3/uL 0.0 per 10 0 WBC [place] WBC Morphology NOT REPORTED [place] Magnesiumon 12-12-2020 Magnesium [Mass/Vol] 2.1 mg/dL 1.6 - 2 .6 mg/dL [place] BASIC METABOLIC PANELon 11-25 Anion gap [Moles/Vol] 11 mmol/L 9 - 17 mmol/L [place] Bun/Cre Ratio NOT REPORTED [place] Calcium [Mass/Vol] 9.2 mg/dL 8.6 - 10. 4 mg/dL [place] Chloride [Moles/Vol] 104 mmol/L 98 - 10 7 mmol/L [place] CO2 [Moles/Vol] 22 mmol/L 20 - 31 mmol/L [place] Creatinine [Mass/Vol] 0.82 mg/dL 0.7 - 1.2 mg/dL [place] GFR >60 >60 mL/min [place] GFR Non- >60 >60 mL/min [place] GFR/1.73 sq M predicted among non-blacks MDRD (S/P/Bld) [Vol rate/Area] NOT REPORTED [place] GFR/1.73 sq M predicted among non-blacks MDRD (S/P/Bld) [Vol rate/Area] [place] Comment on above: Average GFR for 50-5 9 years old: 93 mL/min/1.73sq m Chronic Kidney Disease: <60 mL/min/1.73sq m Kidney failure: <15 mL/min/1.73sq m eGFR calculated using average adult body mass. Additional eGFR calculator available at: http://www.[employer]/multiple_crcl_2011.htm Glucose [Mass/Vol] 87 mg/dL 70 - 99 mg/dL [place] Potassium [Moles/Vol] 4.2 mmol/L 3.7 - 5.3 mmol/L [place] Sodium [Moles/Vol] 137 mmol/L 135 - 144 mmol/L [place] Urea nitrogen [Mass/Vol] 12 mg/dL 6 - 20 mg/dL [place] CBC WITH AUTO DIFFERENTIALon 12-11-2020 Basophils (Bld) [#/Vol] 0.03 10*3/uL [place] Basophils/100 WBC (Bld) 1 % 0 - 2 % [place] Differential Type NOT REPORTED [place] Eosinophils (Bld) [#/Vol] 0.06 10*3/uL [place] Eosinophils/100 WBC (Bld) 1 % 1 - 4 % [place] Erythrocyte distribution width (RBC) [Ratio] 13.8 % 11.8 - 14.4 % [place] Hematocrit (Bld) [Volume fraction] 46.9 % 40.7 - 50.3 % [place] Hemoglobin (Bld) [Mass/Vol] 15.4 g/dL 13 - 17 g/dL [place] Immature granulocytes (Bld) [#/Vol] 1 % High 0 [place] Immature granulocytes (Bld) [#/Vol] 0.04 10*3/uL [place] Interpretation and review of laboratory results Abnormal [place] Lymphocytes (Bld) [#/Vol] 1.09 10*3/uL Low [place] Lymphocytes/100 WBC (Bld) 17 % Low 24 - 43 % [place] MCH (RBC) [Entitic mass] 26.9 pg 25.2 - 33.5 pg [place] MCHC (RBC) [Mass/Vol] 32.8 g/dL 28.4 - 34.8 g/dL [place] MCV (RBC) [Entitic vol] 81.8 fL Low 82.6 - 102.9 fL [place] Monocytes (Bld) [#/Vol] 0.58 10*3/uL [place] Monocytes/100 WBC (Bld) 9 % 3 - 12 % [place] Platelet mean volume (Bld) [Entitic vol] 9.2 fL 8.1 - 13.5 fL [place] Platelets (Bld) [#/Vol] NOT REPORTED [place] Platelets (Bld) [#/Vol] 343 10*3/uL [place] RBC (Bld) [#/Vol] 5.73 10*6/uL 4.21 - 5.7 7 m/uL [place] RBC morphology finding Nom (Bld) MICROCYTOSIS PRESENT [place] Segmented neutrophils/100 WBC (Bld) 71 % High 36 - 65 % [place] Segs Absolute 4.54 [place] WBC (Bld) [#/Vol] 0.0 10*3/uL 0.0 per 10 0 WBC [place] WBC (Bld) [#/Vol] 6.3 10*3/uL [place] WBC Morphology NOT REPORTED [place] Magnesiumon 12-11-2020 Magnesium [Mass/Vol] 1.9 mg/dL 1.6 - 2 .6 mg/dL [place], [place] BASIC METABOLIC PANELon 11-25 Anion gap [Moles/Vol] 11 mmol/L 9 - 17 mmol/L [place] Bun/Cre Ratio NOT REPORTED [place] Calcium [Mass/Vol] 8.9 mg/dL 8.6 - 10. 4 mg/dL [place] Chloride [Moles/Vol] 101 mmol/L 98 - 10 7 mmol/L [place] CO2 [Moles/Vol] 22 mmol/L 20 - 31 mmol/L [place] Creatinine [Mass/Vol] 0.82 mg/dL 0.7 - 1.2 mg/dL [place] GFR >60 >60 mL/min [place] GFR Non- >60 >60 mL/min [place] GFR/1.73 sq M predicted among non-blacks MDRD (S/P/Bld) [Vol rate/Area] NOT REPORTED [place] GFR/1.73 sq M predicted among non-blacks MDRD (S/P/Bld) [Vol rate/Area] [place], [place] Comment on above: Average GFR for 50-5 9 years old: 93 mL/min/1.73sq m Chronic Kidney Disease: <60 mL/min/1.73sq m Kidney failure: <15 mL/min/1.73sq m eGFR calculated using average adult body mass. Additional eGFR calculator available at: http://www.TV[employer].iCAD/multiple_crcl_2012.htm Glucose [Mass/Vol] 91 mg/dL 70 - 99 mg/dL [place] Potassium [Moles/Vol] 4.4 mmol/L 3.7 - 5.3 mmol/L [place] Sodium [Moles/Vol] 134 mmol/L Low 135 - 144 mmol/L [place], [place] Urea nitrogen [Mass/Vol] 13 mg/dL 6 - 20 mg/dL [place], [place] CBC WITH AUTO DIFFERENTIALon 12-10-2020 Basophils (Bld) [#/Vol] 0.03 10*3/uL [place], [place] Basophils/100 WBC (Bld) 1 % 0 - 2 % [place] Differential Type NOT REPORTED [place] Eosinophils (Bld) [#/Vol] 0.07 10*3/uL [place] Eosinophils/100 WBC (Bld) 1 % 1 - 4 % [place] Erythrocyte distribution width (RBC) [Ratio] 13.8 % 11.8 - 14.4 % [place] Hematocrit (Bld) [Volume fraction] 44.7 % 40.7 - 50.3 % [place] Hemoglobin (Bld) [Mass/Vol] 14.6 g/dL 13 - 17 g/dL [place] Immature granulocytes (Bld) [#/Vol] 0.03 10*3/uL [place] Immature granulocytes (Bld) [#/Vol] 1 % High 0 [place] Lymphocytes (Bld) [#/Vol] 1.13 10*3/uL [place] Lymphocytes/100 WBC (Bld) 18 % Low 24 - 43 % [place] MCH (RBC) [Entitic mass] 27.1 pg 25.2 - 33.5 pg [place] MCHC (RBC) [Mass/Vol] 32.7 g/dL 28.4 - 34.8 g/dL [place] MCV (RBC) [Entitic vol] 82.9 fL 82.6 - 102.9 fL [place] Monocytes (Bld) [#/Vol] 0.58 10*3/uL [place], [place] Monocytes/100 WBC (Bld) 9 % 3 - 12 % [place] Platelet mean volume (Bld) [Entitic vol] 9.8 fL 8.1 - 13.5 fL [place] Platelets (Bld) [#/Vol] NOT REPORTED [place] Platelets (Bld) [#/Vol] 350 10*3/uL [place] RBC (Bld) [#/Vol] 5.39 10*6/uL 4.21 - 5.7 7 m/uL [place], [place] RBC morphology finding Nom (Bld) NOT REPORTED [place], [place] Segmented neutrophils/100 WBC (Bld) 70 % High 36 - 65 % [place] Segs Absolute 4.63 [place], [place] WBC (Bld) [#/Vol] 0.0 10*3/uL 0.0 per 10 0 WBC [place] WBC (Bld) [#/Vol] 6.5 10*3/uL [place] WBC Morphology NOT REPORTED [place] Magnesiumon 12-10-2020 Magnesium [Mass/Vol] 2.0 mg/dL 1.6 - 2 .6 mg/dL [place], [place] Otheron 12-10-2020 Interpretation and review of laboratory results Abnormal [place] BASIC METABOLIC PANELon 11-25 Anion gap [Moles/Vol] 9 mmol/L 9 - 17 mmol/L [place] Bun/Cre Ratio NOT REPORTED [place] Calcium [Mass/Vol] 8.9 mg/dL 8.6 - 10. 4 mg/dL [place] Chloride [Moles/Vol] 103 mmol/L 98 - 10 7 mmol/L [place] CO2 [Moles/Vol] 26 mmol/L 20 - 31 mmol/L [place] Creatinine [Mass/Vol] 0.88 mg/dL 0.7 - 1.2 mg/dL [place] GFR >60 >60 mL/min [place] GFR Non- >60 >60 mL/min [place] GFR/1.73 sq M predicted among non-blacks MDRD (S/P/Bld) [Vol rate/Area] NOT REPORTED [place] GFR/1.73 sq M predicted among non-blacks MDRD (S/P/Bld) [Vol rate/Area] [place], [place] Comment on above: Average GFR for 50-5 9 years old: 93 mL/min/1.73sq m Chronic Kidney Disease: <60 mL/min/1.73sq m Kidney failure: <15 mL/min/1.73sq m eGFR calculated using average adult body mass. Additional eGFR calculator available at: http://www.[employer]/multiple_crcl_2012.htm Glucose [Mass/Vol] 95 mg/dL 70 - 99 mg/dL [place] Potassium [Moles/Vol] 4.7 mmol/L 3.7 - 5.3 mmol/L [place] Sodium [Moles/Vol] 138 mmol/L 135 - 144 mmol/L [place], [place] Urea nitrogen [Mass/Vol] 13 mg/dL 6 - 20 mg/dL [place], [place] CBC WITH AUTO DIFFERENTIALon 12-09-2020 Basophils (Bld) [#/Vol] 10*3/uL [place], [place] Basophils/100 WBC (Bld) 0 % 0 - 2 % [place] Differential Type NOT REPORTED [place] Eosinophils (Bld) [#/Vol] 0.04 10*3/uL [place] Eosinophils/100 WBC (Bld) 1 % 1 - 4 % [place] Erythrocyte distribution width (RBC) [Ratio] 13.9 % 11.8 - 14.4 % [place] Hematocrit (Bld) [Volume fraction] 45.5 % 40.7 - 50.3 % [place] Hemoglobin (Bld) [Mass/Vol] 15.0 g/dL 13 - 17 g/dL [place] Immature granulocytes (Bld) [#/Vol] 1 % High 0 [place] Immature granulocytes (Bld) [#/Vol] 0.03 10*3/uL [place] Interpretation and review of laboratory results Abnormal [place] Lymphocytes (Bld) [#/Vol] 0.97 10*3/uL [place], [place] Lymphocytes/100 WBC (Bld) 15 % Low 24 - 43 % [place] MCH (RBC) [Entitic mass] 26.9 pg 25.2 - 33.5 pg [place] MCHC (RBC) [Mass/Vol] 33.0 g/dL 28.4 - 34.8 g/dL [place] MCV (RBC) [Entitic vol] 81.7 fL Low 82.6 - 102.9 fL [place], [place] Monocytes (Bld) [#/Vol] 0.51 10*3/uL [place], [place] Monocytes/100 WBC (Bld) 8 % 3 - 12 % [place] Platelet mean volume (Bld) [Entitic vol] 9.5 fL 8.1 - 13.5 fL [place] Platelets (Bld) [#/Vol] NOT REPORTED [place] Platelets (Bld) [#/Vol] 343 10*3/uL [place] RBC (Bld) [#/Vol] 5.57 10*6/uL 4.21 - 5.7 7 m/uL [place], [place] RBC morphology finding Nom (Bld) MICROCYTOSIS PRESENT [place], [place] Segmented neutrophils/100 WBC (Bld) 75 % High 36 - 65 % [place] Segs Absolute 4.75 [place], [place] WBC (Bld) [#/Vol] 6.3 10*3/uL [place] WBC (Bld) [#/Vol] 0.0 10*3/uL 0.0 per 10 0 WBC [place] WBC Morphology NOT REPORTED [place] Magnesiumon 12-09-2020 Magnesium [Mass/Vol] 2.1 mg/dL 1.6 - 2 .6 mg/dL [place] VL TRANSCRANIAL DOPPLER COMP LETEon 12-09-2020 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 Mean velocities in KARTHIK and RELIGIOUS EDUCATION DIRECTOR are considerably lower than the most recent [...] KARTHIK: 30.0 . Mid KARTHIK: 28.9 . RELIGIOUS EDUCATION DIRECTOR: 25.0 . RELIGIOUS EDUCATION DIRECTOR: 21.2 . T ICA: 47.0 . T ICA: 50.0 . Submandibular Approach. Submandibular Approach. D ICA: 30.0 . D ICA: 38.1 . Transorbital Approach. Transorbital Approach. Siphon: 41.2 . Siphon: 42.4 . Transforamenal Approach. Transforamental Approach. Vertebral: 25.0 . Vertebral: 28.9 . Basilar: 51.2 [facility] [place], [place] [facility], [facility] Incoming Cardio Results From Cp[facility]/Ge - 12/09/2020 9:17 PM EST 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 Mean velocities in KARTHIK and RELIGIOUS EDUCATION DIRECTOR are considerably lower than the most recent [...] KARTHIK: 30.0 . Mid KARTHIK: 28.9 . RELIGIOUS EDUCATION DIRECTOR: 25.0 . RELIGIOUS EDUCATION DIRECTOR: 21.2 . T ICA: 47.0 . T ICA: 50.0 . Submandibular Approach. Submandibular Approach. D ICA: 30.0 . D ICA: 38.1 . Transorbital Approach. Transorbital Approach. Siphon: 41.2 . Siphon: 42.4 . Transforamenal Approach. Transforamental Approach. Vertebral: 25.0 . Vertebral: 28.9 . Basilar: 51.2 [place] BASIC METABOLIC PANELon 11-25 Anion gap [Moles/Vol] 10 mmol/L 9 - 17 mmol/L [place] Bun/Cre Ratio NOT REPORTED [place] Calcium [Mass/Vol] 8.6 mg/dL 8.6 - 10. 4 mg/dL [place] Chloride [Moles/Vol] 103 mmol/L 98 - 10 7 mmol/L [place] CO2 [Moles/Vol] 25 mmol/L 20 - 31 mmol/L [place] Creatinine [Mass/Vol] 0.77 mg/dL 0.7 - 1.2 mg/dL [place] GFR >60 >60 mL/min [place] GFR Non- >60 >60 mL/min [place] GFR/1.73 sq M predicted among non-blacks MDRD (S/P/Bld) [Vol rate/Area] [place], [place] Comment on above: Average GFR for 50-5 9 years old: 93 mL/min/1.73sq m Chronic Kidney Disease: <60 mL/min/1.73sq m Kidney failure: <15 mL/min/1.73sq m eGFR calculated using average adult body mass. Additional eGFR calculator available at: http://www.[employer]/multiple_crcl_2012.htm GFR/1.73 sq M predicted among non-blacks MDRD (S/P/Bld) [Vol rate/Area] NOT REPORTED [place] Glucose [Mass/Vol] 89 mg/dL 70 - 99 mg/dL [place], [place] Potassium [Moles/Vol] 3.9 mmol/L 3.7 - 5.3 mmol/L [place] Sodium [Moles/Vol] 138 mmol/L 135 - 144 mmol/L [place], [place] Urea nitrogen [Mass/Vol] 12 mg/dL 6 - 20 mg/dL [place] CBC WITH AUTO DIFFERENTIALon 12-08-2020 Basophils (Bld) [#/Vol] 10*3/uL [place] Basophils/100 WBC (Bld) 0 % 0 - 2 % [place] Differential Type NOT REPORTED [place] Eosinophils (Bld) [#/Vol] 0.05 10*3/uL [place] Eosinophils/100 WBC (Bld) 1 % 1 - 4 % [place] Erythrocyte distribution width (RBC) [Ratio] 14.1 % 11.8 - 14.4 % [place] Hematocrit (Bld) [Volume fraction] 41.6 % 40.7 - 50.3 % [place] Hemoglobin (Bld) [Mass/Vol] 13.5 g/dL 13 - 17 g/dL [place] Immature granulocytes (Bld) [#/Vol] 0.03 10*3/uL [place] Immature granulocytes (Bld) [#/Vol] 0 % 0 [place] Interpretation and review of laboratory results Abnormal [place] Lymphocytes (Bld) [#/Vol] 1.35 10*3/uL [place] Lymphocytes/100 WBC (Bld) 20 % Low 24 - 43 % [place] MCH (RBC) [Entitic mass] 27.1 pg 25.2 - 33.5 pg [place] MCHC (RBC) [Mass/Vol] 32.5 g/dL 28.4 - 34.8 g/dL [place] MCV (RBC) [Entitic vol] 83.4 fL 82.6 - 102.9 fL [place], [place] Monocytes (Bld) [#/Vol] 0.64 10*3/uL [place], [place] Monocytes/100 WBC (Bld) 9 % 3 - 12 % [place] Platelet mean volume (Bld) [Entitic vol] 9.6 fL 8.1 - 13.5 fL [place] Platelets (Bld) [#/Vol] NOT REPORTED [place] Platelets (Bld) [#/Vol] 312 10*3/uL [place] RBC (Bld) [#/Vol] 4.99 10*6/uL 4.21 - 5.7 7 m/uL [place] RBC morphology finding Nom (Bld) NOT REPORTED [place] Segmented neutrophils/100 WBC (Bld) 70 % High 36 - 65 % [place] Segs Absolute 4.78 [place] WBC (Bld) [#/Vol] 0.0 10*3/uL 0.0 per 10 0 WBC [place] WBC (Bld) [#/Vol] 6.9 10*3/uL [place] WBC Morphology NOT REPORTED [place] Magnesiumon 12-08-2020 Magnesium [Mass/Vol] 1.7 mg/dL 1.6 - 2 .6 mg/dL [place] VL TRANSCRANIAL DOPPLER COMP LETEon 12-07-2020 [facility] Vascular Transcranial Procedure Patient Name TROUT Date of Study 12/07/2020 ANIBAL Clark Date of 1970 Gender Male Age 50 year(s) Race Room Number 0540 Height: 69 inch, 175.26 cm Corporate ID [id number] Weight: 160 pounds, 72.6 kg # Patient Acct [id number] BSA: 1.88 m^2 BMI: 23.63 kg/m^2 # MR # [id number] Fastener Sewing Machine Operator Verónica Salinas, T Interpreting Geraldo Levin Physician Referring Referring Physician EDITH DOMINGUEZ APRN-[employer]PER[employer] Nurse Practitioner Additional Comments CLASSIFICATION OF VASOSPASM [...] KARTHIK: 73.9 . Mid KARTHIK: 77.8 . RELIGIOUS EDUCATION DIRECTOR: 26.9 . RELIGIOUS EDUCATION DIRECTOR: 40.8 . T ICA: 50.0 . T ICA: 57.0 . Submandibular Approach. Submandibular Approach. D ICA: 28.9 . D ICA: 50.8 . Transorbital Approach. Transorbital Approach. Siphon: 49.7 . Siphon: 32.0 . Transforamenal Approach. Transforamental Approach. Vertebral: 33.9 . Vertebral: 34.3 . Basilar: 62.4 Risk Factors Comments: subarachnoid bleed Hematocrit: 38.0 [facility], [place] [facility], [facility] Incoming Cardio Results From Cpacs/Ge - 12/07/2020 11:03 PM EST [facility] Vascular Transcranial Procedure Patient Name TROUT Date of Study 12/07/2020 ANIBAL Clark Date of 1970 Gender Male Age 50 year(s) Race Room Number 0540 Height: 69 inch, 175.26 cm Corporate ID [id number] Weight: 160 pounds, 72.6 kg # Patient Acct [id number] BSA: 1.88 m^2 BMI: 23.63 kg/m^2 # MR # [id number] Fastener Sewing Machine Operator Verónica Salinas Mona Interpreting Geraldo Levin Physician Referring Referring Physician EDITH DOMINGUEZ APRN-[facility] Nurse Practitioner Additional Comments CLASSIFICATION OF VASOSPASM [...] ---- ---- ---- Electronically signed by Geraldo Levin([facility] physician) on 12/07/2020 11:02 PM ---- Findings: [...] KARTHIK: 73.9 . Mid KARTHIK: 77.8 . RELIGIOUS EDUCATION DIRECTOR: 26.9 . RELIGIOUS EDUCATION DIRECTOR: 40.8 . T ICA: 50.0 . T ICA: 57.0 . Submandibular Approach. Submandibular Approach. D ICA: 28.9 . D ICA: 50.8 . Transorbital Approach. Transorbital Approach. Siphon: 49.7 . Siphon: 32.0 . Transforamenal Approach. Transforamental Approach. Vertebral: 33.9 . Vertebral: 34.3 . Basilar: 62.4 Risk Factors Comments: subarachnoid bleed Hematocrit: 38.0 [facility] [place], [place] ECHO Complete 2D W Doppler W Coloron 12-06-2020 Transthoracic Echocardiography Report (TTE) Patient Name TROUT Date of Study 12/06/2020 ANIBAL Clark Date of 1970 Gender Male Age 50 year(s) Race Room Number 0540 Height: 69 inch, 175.26 cm Corporate ID [id number] Weight: 160 pounds, 72.6 kg # Patient Acct [id number] BSA: 1.88 m^2 BMI: 23.63 # kg/m^2 MR # [id number] Fastener Sewing Machine Operator WoodySharlene Interpreting Physician Davion Stanton Fellow Referring Nurse Practitioner Interpreting Referring Physician Xochitl Reeves Fellow Type of Study TTE procedure:2D Echocardiogram, M-Mode, Doppler, Color Doppler. Procedure Date Date: 12/06/2020 Start: 01:08 PM Study Location: [facility] Technical Quality: Good visualization Indications:Subarach noid hemorrhage. [...] is 22 mmHg. Mild pulmonic insufficiency. Signature FINDINGS Left Atrium Left atrium is mildly [...] Wall E' velocity:0.09 m/s Lateral Wall E/E':11 [facility], [place] [facility] Incoming Cardio Results From [facility]/ - 12/06/2020 3:04 PM EST Transthoracic Echocardiography Report (TTE) Patient Name TROUT Date of Study 12/06/2020 ANIBAL Clark Date of 1970 Gender Male Age 50 year(s) Race Room Number 0540 Height: 69 inch, 175.26 cm Corporate ID [id number] Weight: 160 pounds, 72.6 kg # Patient Acct [id number] BSA: 1.88 m^2 BMI: 23.63 # kg/m^2 MR # [id number] Fastener Sewing Machine Operator Sharlene Mckay Interpreting Physician Davion Stanton Fellow Referring Nurse Practitioner Interpreting Referring Physician Xochitl Reeves Fellow Type of Study TTE procedure:2D Echocardiogram, M-Mode, Doppler, Color Doppler. Procedure Date Date: 12/06/2020 Start: 01:08 PM Study Location: [facility] Technical Quality: Good visualization Indications:Subarach noid hemorrhage. [...] Mild pulmonic insufficiency. Signature - - - - FINDINGS Left Atrium Left atrium is [...] Wall E' velocity:0.09 m/s Lateral Wall E/E':11 [place] Basic Metabolic Panelon 11-25 Anion gap [Moles/Vol] 8 mmol/L Low 9 - 17 mmol/L [place] Bun/Cre Ratio NOT REPORTED [place] Calcium [Mass/Vol] 8.1 mg/dL Low 8.6 - 10. 4 mg/dL [place] Chloride [Moles/Vol] 109 mmol/L High 98 - 10 7 mmol/L [place] CO2 [Moles/Vol] 20 mmol/L 20 - 31 mmol/L [place] Creatinine [Mass/Vol] 0.77 mg/dL 0.7 - 1.2 mg/dL [place] GFR >60 >60 mL/min [place] GFR Non- >60 >60 mL/min [place] GFR/1.73 sq M predicted among non-blacks MDRD (S/P/Bld) [Vol rate/Area] [place] Comment on above: Average GFR for 50-5 9 years old: 93 mL/min/1.73sq m Chronic Kidney Disease: <60 mL/min/1.73sq m Kidney failure: <15 mL/min/1.73sq m eGFR calculated using average adult body mass. Additional eGFR calculator available at: http://www.[employer].iCAD/multiple_crcl_2012.htm GFR/1.73 sq M predicted among non-blacks MDRD (S/P/Bld) [Vol rate/Area] NOT REPORTED [place] Glucose [Mass/Vol] 119 mg/dL High 70 - 99 mg/dL [place] Interpretation and review of laboratory results Abnormal [place] Potassium [Moles/Vol] 4.1 mmol/L 3.7 - 5.3 mmol/L [place] Sodium [Moles/Vol] 137 mmol/L 135 - 144 mmol/L [place] Urea nitrogen [Mass/Vol] 8 mg/dL 6 - 20 mg/dL [place] CBC Auto Differentialon 11-25 Basophils (Bld) [#/Vol] 0.00 10*3/uL [place] Basophils/100 WBC (Bld) 0 % 0 - 2 % [place] Differential Type NOT REPORTED [place] Eosinophils (Bld) [#/Vol] 0.00 10*3/uL [place] Eosinophils/100 WBC (Bld) 0 % Low 1 - 4 % [place] Erythrocyte distribution width (RBC) [Ratio] 15.0 % High 11.8 - 14.4 % [place] Hematocrit (Bld) [Volume fraction] 38.0 % Low 40.7 - 50.3 % [place] Hemoglobin (Bld) [Mass/Vol] 12.5 g/dL Low 13 - 17 g/dL [place] Immature granulocytes (Bld) [#/Vol] 0.08 10*3/uL [place] Immature granulocytes (Bld) [#/Vol] 1 % High 0 [place] Interpretation and review of laboratory results Abnormal [place], [place] Lymphocytes (Bld) [#/Vol] 0.46 10*3/uL [place] Lymphocytes/100 WBC (Bld) 6 % Low 24 - 43 % [place] MCH (RBC) [Entitic mass] 27.1 pg 25.2 - 33.5 pg [place] MCHC (RBC) [Mass/Vol] 32.9 g/dL 28.4 - 34.8 g/dL [place] MCV (RBC) [Entitic vol] 82.4 fL Low 82.6 - 102.9 fL [place] Monocytes (Bld) [#/Vol] 0.23 10*3/uL [place] Monocytes/100 WBC (Bld) 3 % 3 - 12 % [place] Morphology Hari (Bld) [Interp] ANISOCYTOSIS PRESENT [place], [place] Platelet mean volume (Bld) [Entitic vol] 9.9 fL 8.1 - 13.5 fL [place] Platelets (Bld) [#/Vol] 275 10*3/uL [place] Platelets (Bld) [#/Vol] NOT REPORTED [place] RBC (Bld) [#/Vol] 4.61 10*6/uL 4.21 - 5.7 7 m/uL [place] RBC morphology finding Nom (Bld) NOT REPORTED [place], [place] Segmented neutrophils/100 WBC (Bld) 90 % High 36 - 65 % [place] Segs Absolute 6.83 [place], [place] WBC (Bld) [#/Vol] 0.0 10*3/uL 0.0 per 10 0 WBC [place] WBC (Bld) [#/Vol] 7.6 10*3/uL [place] WBC Morphology NOT REPORTED [place] Magnesiumon 12-05-2020 Magnesium [Mass/Vol] 2.0 mg/dL 1.6 - 2 .6 mg/dL [place] Basic metabolic panelon 11-25 Anion gap [Moles/Vol] 12 mmol/L 9 - 17 mmol/L [place] Bun/Cre Ratio NOT REPORTED [place] Calcium [Mass/Vol] 8.4 mg/dL Low 8.6 - 10. 4 mg/dL [place] Chloride [Moles/Vol] 104 mmol/L 98 - 10 7 mmol/L [place] CO2 [Moles/Vol] 20 mmol/L 20 - 31 mmol/L [place] Creatinine [Mass/Vol] 0.72 mg/dL 0.7 - 1.2 mg/dL [place] GFR >60 >60 mL/min [place] GFR Non- >60 >60 mL/min [place] GFR/1.73 sq M predicted among non-blacks MDRD (S/P/Bld) [Vol rate/Area] [place], [place] Comment on above: Average GFR for 50-5 9 years old: 93 mL/min/1.73sq m Chronic Kidney Disease: <60 mL/min/1.73sq m Kidney failure: <15 mL/min/1.73sq m eGFR calculated using average adult body mass. Additional eGFR calculator available at: http://www.[employer]/multiple_crcl_2012.htm GFR/1.73 sq M predicted among non-blacks MDRD (S/P/Bld) [Vol rate/Area] NOT REPORTED [place] Glucose [Mass/Vol] 112 mg/dL High 70 - 99 mg/dL [place], [place] Potassium [Moles/Vol] 3.8 mmol/L 3.7 - 5.3 mmol/L [place] Sodium [Moles/Vol] 136 mmol/L 135 - 144 mmol/L [place], [place] Urea nitrogen [Mass/Vol] 9 mg/dL 6 - 20 mg/dL [place] CBCon 12-04-2020 Erythrocyte distribution width (RBC) [Ratio] 14.7 % High 11.8 - 14.4 % [place] Hematocrit (Bld) [Volume fraction] 42.0 % 40.7 - 50.3 % [place] Hemoglobin (Bld) [Mass/Vol] 13.3 g/dL 13 - 17 g/dL [place] MCH (RBC) [Entitic mass] 26.6 pg 25.2 - 33.5 pg [place] MCHC (RBC) [Mass/Vol] 31.7 g/dL 28.4 - 34.8 g/dL [place] MCV (RBC) [Entitic vol] 84.0 fL 82.6 - 102.9 fL [place] Platelet mean volume (Bld) [Entitic vol] 9.3 fL 8.1 - 13.5 fL [place], [place] Platelets (Bld) [#/Vol] 264 10*3/uL [place] RBC (Bld) [#/Vol] 5.00 10*6/uL 4.21 - 5.7 7 m/uL [place] WBC (Bld) [#/Vol] 6.8 10*3/uL [place] WBC (Bld) [#/Vol] 0.0 10*3/uL 0.0 per 10 0 WBC [place] Hemoglobin A1con 12-04-2020 Glucose [Mass/Vol] 105 mg/dL [place], [place] Comment on above: The ADA and AACC rec ommend providing the estimated average glucose result to permit better patient understanding of their HBA1c result. HbA1c (Bld) [Mass fraction] 5.3 % 4 - 6 % [place] Lipid panel - fastingon 11-25 Cholesterol [Mass/Vol] 182 mg/dL <200 Me [place] Comment on above: Cholesterol Guidelines: <200 Desirable 200-240 Borderline >240 Undesirable Cholesterol in HDL [Mass/Vol] 68 mg/dL >40 [place], [place] Comment on above: HDL Guidelines: <40 Undesirable 40-59 Borderline >59 Desirable Cholesterol in LDL [Mass/Vol] 107 mg/dL 0 - 130 mg/dL [place], [place] Comment on above: LDL Guidelines: <100 Desirable 100-129 Near to/above Desirable 130-159 Borderline >159 Undesirable Direct (measured) LDL and calculated LDL are not interchangeable tests. Cholesterol in VLDL [Mass/Vol] NOT REPORTED 1 - 30 mg/dL [place] Cholesterol.total/Chol esterol in HDL [Mass ratio] 2.7 {ratio} <5 [place] Triglyceride [Mass/Vol] 34 mg/dL <150 [place], [place] Comment on above: Triglyceride Guidelines: <150 Desirable 150-199 Borderline 200-499 High >499 Very high Based on AHA Guidelines for fasting triglyceride, August 2012. Magnesiumon 12-04-2020 Magnesium [Mass/Vol] 1.9 mg/dL 1.6 - 2 .6 mg/dL [place] Otheron 12-04-2020 Interpretation and review of laboratory results Abnormal [place] Troponinon 12-04-2020 Troponin I.cardiac [Mass/Vol] NOT REPORTED [place] Troponin T.cardiac [Mass/Vol] NOT REPORTED <0.03 ng/mL [place] Troponin, High Sensitivity 6 ng/L 0 - 22 ng/L [place], [place] Comment on above: High Sensitivity Troponin values cannot be compared with other Troponin methodologies. Patients with high levels of Biotin oral intake (i.e >5mg/day) may have falsely decreased Troponin levels. Samples collected within 8 hours of biotin intake may require additional information for diagnosis. APTTon 12-03-2020 aPTT Coag (d) [Time] 26.4 s Me [place], [place] Comment on above: IV Heparin Therapy Range: 48.6-77.8 Anion Gap (Calc) POCon 12-03 Anion gap [Moles/Vol] 7 mmol/L 7 - 16 mmol/L [place] BASIC METABOLIC PANELon Anion gap [Moles/Vol] 10 mmol/L 9 - 17 mmol/L [place], [place] Bun/Cre Ratio NOT REPORTED [place] Calcium [Mass/Vol] 9.0 mg/dL 8.6 - 10. 4 mg/dL [place], [place] Chloride [Moles/Vol] 104 mmol/L 98 - 10 7 mmol/L [place] CO2 [Moles/Vol] 22 mmol/L 20 - 31 mmol/L [place] Creatinine [Mass/Vol] 0.8 mg/dL 0.7 - 1.2 mg/dL [place] GFR >60 >60 mL/min [place] GFR/1.73 sq M predicted among non-blacks MDRD (S/P/Bld) [Vol rate/Area] NOT REPORTED [place], [place] Glucose [Mass/Vol] 100 mg/dL High 70 - 99 mg/dL [place], [place] Potassium [Moles/Vol] 3.9 mmol/L 3.7 - 5.3 mmol/L [place], [place] Sodium [Moles/Vol] 136 mmol/L 135 - 144 mmol/L [place], [place] Urea nitrogen [Mass/Vol] 12 mg/dL 6 - 20 mg/dL [place] CALCIUM, IONIC (POC)on 12-03 POC Ionized Calcium 1.18 mmol/L 1.15 - 1 .33 mmol/L [place], [place] CBC WITH AUTO DIFFERENTIALon 12-03-2020 Basophils (Bld) [#/Vol] 0.03 10*3/uL [place], [place] Basophils/100 WBC (Bld) 0 % 0 - 2 % [place] Differential Type NOT REPORTED [place] Eosinophils (Bld) [#/Vol] 10*3/uL [place] Eosinophils/100 WBC (Bld) 0 % Low 1 - 4 % [place] Erythrocyte distribution width (RBC) [Ratio] 14.6 % High 11.8 - 14.4 % [place] Hematocrit (Bld) [Volume fraction] 45.5 % 40.7 - 50.3 % [place] Hemoglobin (Bld) [Mass/Vol] 14.7 g/dL 13 - 17 g/dL [place] Immature granulocytes (Bld) [#/Vol] 0.03 10*3/uL [place] Immature granulocytes (Bld) [#/Vol] 0 % 0 [place] Lymphocytes (Bld) [#/Vol] 1.20 10*3/uL [place] Lymphocytes/100 WBC (Bld) 14 % Low 24 - 43 % [place] MCH (RBC) [Entitic mass] 27.1 pg 25.2 - 33.5 pg [place] MCHC (RBC) [Mass/Vol] 32.3 g/dL 28.4 - 34.8 g/dL [place] MCV (RBC) [Entitic vol] 83.8 fL 82.6 - 102.9 fL [place] Monocytes (Bld) [#/Vol] 0.53 10*3/uL [place] Monocytes/100 WBC (Bld) 6 % 3 - 12 % [place] Platelet mean volume (Bld) [Entitic vol] 9.6 fL 8.1 - 13.5 fL [place] Platelets (Bld) [#/Vol] NOT REPORTED [place] Platelets (Bld) [#/Vol] 323 10*3/uL [place] RBC (Bld) [#/Vol] 5.43 10*6/uL 4.21 - 5.7 7 m/uL [place] RBC morphology finding Nom (Bld) ANISOCYTOSIS PRESENT [place], [place] Segmented neutrophils/100 WBC (Bld) 80 % High 36 - 65 % [place], [place] Segs Absolute 6.63 [place] WBC (Bld) [#/Vol] 0.0 10*3/uL 0.0 per 10 0 WBC [place] WBC (Bld) [#/Vol] 8.4 10*3/uL [place] WBC Morphology NOT REPORTED [place] CHLORIDE (POC)on 12-03-2020 Chloride [Moles/Vol] 106 mmol/L 98 - 10 7 mmol/L [place], [place] COVID-19on 12-03-2020 SARS-CoV-2, Rapid Not Detected Not Detected [place], [place] Comment on above: Rapid NAAT: The [...] management decisions. Fact sheet for Healthcare Providers: https://www.fda.gov/media/265122/download Fact sheet for Patients: https://www.fda.gov/media/421457/download Methodology: Isothermal Nucleic Acid Amplification Source .NASOPHARYNGEAL SWAB [place], [place] CT HEAD WO CONTRASTon 2020 INR Coag (Bld) [Relative time] Addendum by Darryn Lam MD on 12/03/2020 7:50 PM ADDENDUM: Discussed with Dr. Arias at 7:46 p.m. [place], [place] Subarachnoid hemorrhage as above. RECOMMENDATIONS: The findings were sent to the Radiology Results Communication Center at 7:34 pm on 12/03/2020to be communicated to a licensed caregiver. [place], [place] EXAMINATION: CT OF THE HEAD WITHOUT [...] of the visualized skull or soft tissues. [place], [place] Mac, pn Incoming Radiant Results From [employer] - 12/03/2020 7:38 PM EST EXAMINATION: CT [...] 12/03/2020to be communicated to a licensed caregiver. [employer] [place] CTA HEAD NECK W CONTRASTon 0 12-03-2020 60% stenosis proximal right internal carotid artery. Less than 50% stenosis proximal left internal carotid artery. Moderate stenosis origin of the vertebral arteries bilaterally.. [employer] [place] EXAMINATION: CTA OF THE HEAD AND [...] fluid collection. The barney-white differentiation is maintained. [facility] [place], [place] Incoming Radiant Results From [employer] - 12/03/2020 9:01 PM EST EXAMINATION: CTA [...] stenosis origin of the vertebral arteries bilaterally.. [facility] Creatinine W/GFR Point of Ca reon 12-03-2020 Creatinine [Mass/Vol] 0.93 mg/dL 0.51 - 1.19 mg/dL [place], [place] GFR/1.73 sq M predicted among non-blacks MDRD (S/P/Bld) [Vol rate/Area] mL/min/{1.73_m2} >60 mL/min [place], [place] Hemoglobin and hematocrit, b loodon 12-03-2020 Hematocrit (Bld) [Volume fraction] 47 % 41 - 53 % [place], [place] Hemoglobin (Bld) [Mass/Vol] 16.0 g/dL 13.5 - 17.5 g/dL [place], [place] Lactic Acid, POCon POC Lactic Acid 0.68 mmol/L 0.56 - 1.39 mmol/L [place], [place] Metabolic Panelon 12-03-2020 GFR/1.73 sq M predicted among non-blacks MDRD (S/P/Bld) [Vol rate/Area] [place], [place] Comment on above: Average GFR for 50-5 9 years old: 93 mL/min/1.73sq m Chronic Kidney Disease: <60 mL/min/1.73sq m Kidney failure: <15 mL/min/1.73sq m eGFR calculated using average adult body mass. Additional eGFR calculator available at: http://www.[employer]/multiple_crcl_2012.htm Otheron 12-03-2020 GFR Non- >60 >60 mL/min [place], [place] Interpretation and review of laboratory results Abnormal [place], [place] SARS-CoV-2 [place], [place] POCT Glucoseon 12-03-2020 Glucose [Mass/Vol] 110 mg/dL High 74 - 100 mg/dL [place] POTASSIUM (POC)on 12-03-2020 Potassium [Moles/Vol] 3.8 mmol/L 3.5 - 4.5 mmol/L [place] Protime-INRon 12-03-2020 INR Coag (PPP) [Relative time] 1.0 {INR} [place], [place] Comment on above: Therapeutic Range: Moderate Anticoagulant Intensity: INR = 2.0-3.0 High Anticoagulant Intensity: INR = 2.5-3.5 PT Coag (PPP) [Time] 10.3 s [place] SODIUM (POC)on 12-03-2020 Sodium [Moles/Vol] 140 mmol/L 138 - 146 mmol/L [place], [place] Urine Drug Screenon 12-03-19 21 Amphetamine Screen, Ur Negative NEGATIVE [place], [place] Comment on above: (Positive cutoff 1000 ng/mL) Barbiturate Screen, Ur Negative NEGATIVE [place] Comment on above: (Positive cutoff 200 ng/mL) Benzodiazepine Screen, Urine Negative NEGATIVE [place], [place] Comment on above: (Positive cutoff 200 ng/mL) Buprenorphine Urine NOT REPORTED NEGATIVE [place], [place] Cannabinoid Scrn, Ur Negative NEGATIVE [place] Comment on above: (Positive cutoff 50 ng/mL) Cocaine Metabolite, Urine Negative NEGATIVE [place], [place] Comment on above: (Positive cutoff 300 ng/mL) Interpretation and review of laboratory results Abnormal [place], [place] MDMA, Urine NOT REPORTED NEGATIVE [place], [place] Methadone Screen, Urine Negative NEGATIVE [place], [place] Comment on above: (Positive cutoff 300 ng/mL) Methamphetamine, Urine NOT REPORTED NEGATIVE [place], [place] Opiates, Urine Positive Abnormal NEGATIVE [place], [place] Comment on above: (Positive cutoff 300 ng/mL) Oxycodone Screen, Ur Negative NEGATIVE [place] Comment on above: (Positive cutoff 100 ng/mL) Phencyclidine, Urine Negative NEGATIVE [place] Comment on above: (Positive cutoff 25 ng/mL) Propoxyphene, Urine NOT REPORTED NEGATIVE [place], [place] Test Information Assay provides medical screening only. The absence of expected drug(s) and/or metabolite(s) may indicate diluted or adulterated urine, limitations of testing or timing of collection. [place], [place] Comment on above: Testing for legal pu rposes should be confirmed by another method. To request confirmation of test result, please call the lab within 7 days of sample submission. Tricyclic Antidepressants, Urine NOT REPORTED NEGATIVE [facility] [place] Venous Blood Gas, POCon Jorge Test NOT REPORTED [place], [place] aPTT Coag (Bld) [Time] NOT REPORTED [place], [place] FIO2 NOT REPORTED [place] HCO3, Venous 26.8 mmol/L 22 - 29 mmol/L [place], [place] Mode NOT REPORTED [place], [place] Negative Base Excess, Abdifatah NOT REPORTED [place], [place] O2 Device/Flow/% NOT REPORTED [place], [place] Oxygen saturation in Blood 54 % Low 60 - 85 % [place] pCO2, Adbifatah 43.4 [facility] [place], [place] pH, Abdifatah 7.398 [place], [place] pO2, Abdifatah 28.9 Low [place], [place] POC pCO2 Temp NOT REPORTED mm Hg [facility] [place], [place] POC pH Temp NOT REPORTED [facility] [place], [place] POC pO2 Temp NOT REPORTED mm Hg [facility] [place], [place] Positive Base Excess, Abdifatah 2 [place], [place] Sample Site NOT REPORTED [facility] [place] Total CO2, Venous 28 mmol/L 23 - 30 mmol/L [place], [place] Social History Date Type Detail Facility Start: 03-04-2023 History SDOH Housing Homeless Last Year 2 [employer] Work Phone: Start: 07-05-2022 History SDOH Alcohol Comment a beer or 2, 2-3 times a week. [employer] Phone: Start: 06-25-2022 End: 08-03-2022 Exposure to SARS-CoV-2 (event) Not sure [place], [place] Start: 09-01-2021 End: 03-04-2023 Alcohol intake [employer] Phone: Start: 05-22-2021 End: 03-04-2023 History SDOH Financial 5 [employer] Phone: Start: 05-22-2021 End: 03-04-2023 History SDOH Food Worry 1 [employer] Phone: Start: 05-22-2021 Alcohol Comment [employer] [facility] [facility] Work Phone: Start: 12-05-2020 End: 07-05-2022 Tobacco smoking status NHIS Never smoker [place], [place] Start: 12-05-2020 End: 07-05-2022 Tobacco use and exposure Never used [facility] Start: 12-05-2020 End: 03-04-2023 Alcohol intake Current drinker of alcohol (finding) [place] Start: 12-03-2020 Alcohol Comment 1-2 beers every nigh t [place], [place] Start: 1970 Sex Assigned At Not on file M [place] Vital Signs Date Time Vital Sign Value Performing Clinician Emilia quintana 07-19-2022 12:01-0400 Body temperature 97 [degF] Nidia Ahammad DO Work Phone: [facility] [employer] 07-19-2022 12:01-0400 Diastolic blood pressure 82 mm[Hg] Nidia Ahammad DO Work Phone: [facility] 07-19-2022 12:01-0400 Heart rate 68 /min Nidia Ahammad DO Work Phone: [facility] 07-19-2022 12:01-0400 Respiratory rate 18 /min Nidia Ahammad DO Work Phone: [facility] 07-19-2022 12:01-0400 SaO2% (BldA) [Mass fraction] 100 % Nidia Ahammad DO Work Phone: [employer] 07-19-2022 12:01-0400 Systolic blood pressure 138 mm[Hg] Nidia Ahammad DO Work Phone: [facility] 07-19-2022 08:10-0400 Body height 172.7 cm Nidia Ahammad DO Work Phone: [facility] 07-19-2022 08:10-0400 Body mass index (BMI) [Ratio] 24.33 kg/m2 Nidia Ahammad DO Work Phone: [facility] 07-19-2022 08:10-0400 Body weight 72.58 kg Nidia Archer DO Work Phone: [facility] 07-05-2022 10:57-0400 Body temperature 97.81 [degF] Stvz 2 [facility] [employer] 07-05-2022 10:57-0400 Diastolic blood pressure 82 mm[Hg] Stvz 2 [facility] 07-05-2022 10:57-0400 Heart rate 54 /min Stvz [address] [facility] 07-05-2022 10:57-0400 Respiratory rate 18 /min [facility] [employer] 07-05-2022 10:57-0400 Systolic blood pressure 136 mm[Hg] Stvz 2 [facility] 12-13-2020 16:15-0500 Body Temperature 97.2 [degF] [facility] [place] 12-13-2020 16:15-0500 BP Diastolic 85 mm[Hg] [facility] , [place] 12-13-2020 16:15-0500 BP Systolic 122 mm[Hg] [facility] , [place] 12-13-2020 16:15-0500 Pulse (Heart Rate) 60 /min [facility] 12-13-2020 16:15-0500 Respiratory Rate 16 /min [facility] [place] 12-13-2020 13:28-0500 Pulse Oximetry 100 % [facility] [place] 12-09-2020 13:56-0500 Height 175.3 cm [facility] [place] 12-03-2020 19:10-0500 BMI (Body Mass Index) 23.63 kg/m2 [facility], [place] 12-03-2020 19:10-0500 Body weight 72.58 kg [place] Clinical Notes 07-04-2022 to 03-17-2024 Discharge [...] homework. ? Working on the computer, social [employer], and texting. ? Avoid activities that could cause another head injury until your doctor says it is okay. This includes playing sports. Having another head injury, especially before the first one has healed, can be dangerous. ? Ask your doctor when it is safe for you to go back to your normal activities, such as work or school. Ask your doctor for a [id number] plan for slowly going back to your [...] your friends, family, a trusted co-worker, and cafeteria worker about your injury, symptoms, and limits (restrictions). Have them watch for any problems that are new or getting worse. General instructions ? Take hhad-qss-zmsyfeh and prescription medicines only as told by [...] ? Limit how (more content not included)... [facility] 07-19-2022 Hospital Discharg e instructions Mauricio Rashid RN - 07/19/2022 12:15 PM EDT Images from the original note were not included. Surgery Discharge Instructions Thank you for choosing [facility] for your surgical needs. The following instructions will help to ensure your comfort and that you are well prepared after your surgery. Post-Operative Visit: The office is located at: [facility] [address] [place] [address], [address], [place] [address] Please also call your primary care physician [...] taking short, frequent walks in the beginning. [place], more frequent walks throughout the day are [...] appointment. YOU SHOULD CALL THE OFFICE AT [phone] IF YOU HAVE ANY OF THE FOLLOWING: [...] your doctor documented in this encounter [employer] Phone: 07-05-2022 History of Presen t illness [...] 02/2022 no acute abnormality. CTA 11/2020 in [facility] unremarkable CTA. Most recent office note with Dr. Joseph in chart 07/02/22. No further clearance requested by Dr. Saleh, notes are [facility]. EKG also reviewed, patient is without cardiac or pulmonary complaints, is a runner, active. No further request. MAURICIO MURPHY PA-C 07/05/22 11:07 AM documented in this encounter [employer] Work Phone: 07-04-2022 Hospital Discharg e ROLANDO [...] drive you home after your procedure. Your truck driver instructor must be 18 years of age or [...] questions, call the Pre-Admission Testing Unit at [phone]. Day of Surgery/Procedure As a patient at [facility] you can expect quality medical and nursing care that is centered on your individual needs. Our goal is to make your surgical experience as comfortable as possible . Directions to the Surgery Center [facility] is located at [address] [place] [address]. Please pull into the Emergency Room & Surgery Center parking lot (Entrance B) and park in that lot. We also have additional parking across the street. You will enter the facility following the [facility] sign. Please stop at the reception agent desk where you will be checked in by the staff. If you have any questions please call [phone]. Transportation after your procedure. You will need a friend or family member to drive you home after your procedure. Your truck driver instructor must be 18 years of age or [...] You may shave your face or neck. [place] your teeth but do not swallow water. [...] or the day of surgery, please call [phone], or [phone] documented in this encounter [employer] Phone: Evaluation note Diagnosis SAH (subarachnoid hemorrhage) (HCC) Subarachnoid hemorrhage documented in this encounter [employer] Phone: evaluation note* Diagnosis SAH (subarachnoid hemorrhage) (HCC) Subarachnoid hemorrhage documented in this encounter [employer] Phone: evaluation note* Diagnosis Acute post-operative pain- Primary Complex regional pain syndrome type 1 of left upper extremity Essential (primary) hypertension Unspecified essential hypertension Hyperlipidemia, unspecified hyperlipidemia type documented in this encounter [employer] Phone: evaluation note* Diagnosis SAH (subarachnoid hemorrhage) (HCC) Subarachnoid hemorrhage documented in this encounter [employer] Phone: evalnydtle note* Diagnosis Complex regional pain syndrome type 1 of left upper extremity Failure of spinal cord stimulator, subsequent encounter documented in this encounter [employer] Phone: evalbmykpl note* Diagnosis Essential (primary) hypertension Unspecified essential hypertension Hyperlipidemia, unspecified hyperlipidemia type documented in this encounter [employer] Phone: evalklwuwl note* Diagnosis Serum potassium elevated Hyperpotassemia documented in this encounter [employer] Phone: Reason for Referral Status Reason Specialty Diagnoses / Procedures Referre d By Contact Referred To Contact Open Radiology Diagnoses SAH (subarachnoid hemorrhage) (HCC) Procedures CTA HEAD W CONTRAST Samantha Husain MD [address] [place] [address] Status Reason Specialty Diagnoses / Procedures Referre d By Contact Referred To Contact Closed Radiology Diagnoses Sciatica of left side Procedures CT LUMBAR SPINE WO CONTRAST Geoff Dodson MD [facility] [place], [address] [place] [address] [address], [address] [place] [address] Status Reason Specialty Diagnoses / Procedures Referre d By Contact Referred To Contact Closed Radiology Diagnoses SAH (subarachnoid hemorrhage) (HCC) Procedures CTA HEAD W CONTRAST [address] Samantha Husain MD [address] [place] [address] Status Reason Specialty Diagnoses / Procedures Referre d By Contact Referred To Contact Closed Radiology Diagnoses SAH (subarachnoid hemorrhage) (HCC) Procedures CTA HEAD W CONTRAST [id number] [phone] case # [id number] Carolyn Joseph MD [address] [facility] [address] [place] [address] Specialty Diagnoses / Procedures Referred By Contac t Referred To Contact Radiology Diagnoses SAH (subarachnoid hemorrhage) (HCC) I60.9 (ICD-10-CM) - SAH (subarachnoid hemorrhage) (HCC) Procedures MRI BRAIN W WO CONTRAST NM MRI BRAIN COMBO [id number] - NM MRI BRAIN COMBO Carolyn Joseph MD [address] [facility] [address] [place] [address] Referral ID Status Reason Start Date Expiration Date Visits Re quested Visits Authorized [id number] Closed 08/30/2022 07/02/2023 1 1 Specialty Diagnoses / Procedures Referred By Edis lai Referred To Contact Radiology Diagnoses Complex regional pain syndrome type 1 of left upper extremity Failure of spinal cord stimulator, subsequent encounter G90.512 (ICD-10-CM) - Complex regional pain syndrome type 1 of left upper extremity Procedures MRI CERVICAL SPINE WO CONTRAST NM MRI, CERV SPINE 92613 - NM MRI, CERV SPINE Sukhjinder Musa W, BLURB WRITER - SUPERVISOR W[employer]ING DEPARTMENT [address] [facility] [address] [address] Referral ID Status Reason Start Date Expiration Date Visits Re quested Visits Authorized [id number] Closed 08/30/2022 08/24/2023 1 1 History of Present Illness * Samantha Husain MD - 12/13/2020 8:00 AM EST Daily Progress Note Neuro Critical Care Patient Name: Anibal Damon Patient : 1970 Room/Bed: [facility]0540-01 Code Status: Full Code Allergies: No Known Allergies CHIEF COMPLAINT: Headache INTERVAL HISTORY Initial Presentation (Admitted 12/03/2020): The patient is a 50-year-old male with a history of complex regional pain syndrome s/p nerve stimulator who was transferred from [facility] for SAH. Pt notes that he [...] not resolve his pain, he went to [facility] ED for evaluation. CT Head w/o contrast and CTA Neck and Head revealed SAH with no aneurysm. Pt was transferred to [facility] for neuro-endovascular and neuro-critical care evaluation. Pt arrived to [facility], where the CTH and CTA re-demonstrated the [...] Samantha Husain MD Neuro Critical Care Pager [phone] 12/13/2020 8:00 AM Associated attestation - Samy [...] Box MD Stroke, Neurocritical Care & Neurointervention [facility] Electronically signed 12/12/2020 at 3:26 PM Associated [...] 35 minutes Carolyn Joseph MD, [place] Office [phone]. Cell [phone] Stroke, Neurocritical Care & Neurointervention [facility] * Samantha Husain MD - 12/12/2020 8:19 AM EST Daily Progress Note Neuro Critical Care Patient Name: Anibal Damon Patient : 1970 Room/Bed: 0540/0540-01 Code Status: Full Code Allergies: No Known Allergies CHIEF COMPLAINT: Headache INTERVAL HISTORY Initial Presentation (Admitted 12/03/2020): The patient is a 50-year-old male with a history of complex regional pain syndrome s/p nerve stimulator who was transferred from [facility] for SAH. Pt notes that he [...] not resolve his pain, he went to [facility] ED for evaluation. CT Head w/o contrast and CTA Neck and Head revealed SAH with no aneurysm. Pt was transferred to [facility] for neuro-endovascular and neuro-critical care evaluation. Pt arrived to [facility], where the CTH and CTA re-demonstrated the [...] Samantha Husain MD Neuro Critical Care Pager [phone] 12/12/2020 12:19 PM Associated attestation - Samy [...] MD, PhD Stroke, Neurocritical Care & Neurointervention [facility] Electronically signed 12/11/2020 at 10:19 AM Associated [...] speaking with team. Dell Ventura MD Office [phone]. Cell [id number] Stroke, Neurocritical Care & Neurointervention [facility] * Israel Darden MD - 12/11/2020 6:46 AM EST Daily Progress Note Neuro Critical Care Patient Name: Anibal Damon Patient : 1970 Room/Bed: 0540/0540-01 Code Status: Full Code Allergies: No Known Allergies CHIEF COMPLAINT: Headache INTERVAL HISTORY Initial Presentation (Admitted 12/03/2020): The patient is a 50-year-old male with a history of complex regional pain syndrome s/p nerve stimulator who was transferred from [facility] for SAH. Pt notes that he [...] not resolve his pain, he went to [facility] ED for evaluation. CT Head w/o contrast and CTA Neck and Head revealed SAH with no aneurysm. Pt was transferred to [facility] for neuro-endovascular and neuro-critical care evaluation. Pt arrived to [facility], where the CTH and CTA re-demonstrated the [...] Israel Darden MD Neuro Critical Care Pager [phone] 12/11/2020 6:46 AM Associated attestation - Conor [...] MD, PhD Stroke, Neurocritical Care & Neurointervention [facility] Stroke Network [facility] Stroke [facility] Electronically signed 12/10/2020 at 9:55 AM Associated [...] speaking with team. Dell Ventura MD Office [phone]. Cell [phone] Stroke, Neurocritical Care & Neurointervention [facility] Stroke Network [facility] Stroke [facility] [place] * Israel Darden MD - 12/10/2020 7:28 AM EST Daily Progress Note Neuro Critical Care Patient Name: Anibal Damon Patient : 1970 Room/Bed: 0540/0540-01 Code Status: Full Code Allergies: No Known Allergies CHIEF COMPLAINT: Headache INTERVAL HISTORY Initial Presentation (Admitted 12/03/2020): The patient is a 50-year-old male with a history of complex regional pain syndrome s/p nerve stimulator who was transferred from [facility] for SAH. Pt notes that he [...] not resolve his pain, he went to [facility] ED for evaluation. CT Head w/o contrast and CTA Neck and Head revealed SAH with no aneurysm. Pt was transferred to [facility] for neuro-endovascular and neuro-critical care evaluation. Pt arrived to [facility], where the CTH and CTA re-demonstrated the [...] Israel Darden MD Neuro Critical Care Pager [phone] 12/10/2020 7:28 AM Associated attestation - Conor [...] Discharge Planning: Too soon to determine Contact: [phone] * Geoff Dodson MD - 12/09/2020 8:00 [...] MD, PhD Stroke, Neurocritical Care & Neurointervention [facility] Electronically signed 12/09/2020 at 6:45 PM Associated [...] 35 minutes Carolyn Joseph MD, [place] Office [phone]. Cell [phone] Stroke, Neurocritical Care & Neurointervention [facility] * Samantha Husain MD - 12/09/2020 7:58 AM EST Daily Progress Note Neuro Critical Care Patient Name: Anibal Damon Patient : 1970 Room/Bed: 0540/0540-01 Code Status: Full Code Allergies: No Known Allergies CHIEF COMPLAINT: Headache INTERVAL HISTORY Initial Presentation (Admitted 12/03/2020): The patient is a 50-year-old male with a history of complex regional pain syndrome s/p nerve stimulator who was transferred from [facility] for SAH. Pt notes that he [...] not resolve his pain, he went to [facility] ED for evaluation. CT Head w/o contrast and CTA Neck and Head revealed SAH with no aneurysm. Pt was transferred to [facility] for neuro-endovascular and neuro-critical care evaluation. Pt arrived to [facility], where the CTH and CTA re-demonstrated the [...] [x] Dr. Conor Raya [] Dr. Levy Jackmna [] There are no new interval images [...] Samantha Husain MD Neuro Critical Care Pager [phone] 12/09/2020 9:58 AM Associated attestation - Conor [...] MD, PhD Stroke, Neurocritical Care & Neurointervention [facility] Stroke [facility] Electronically signed 12/08/2020 at 2:33 PM Associated [...] 35 minutes Carolyn Joseph MD, [place] Office [phone]. Cell [phone] Stroke, Neurocritical Care & Neurointervention [facility] Stroke [facility] * Samantha Husain MD - 12/08/2020 7:22 AM EST Daily Progress Note Neuro Critical Care Patient Name: Anibal Damon Patient : 1970 Room/Bed: [address] [place] [address] Code Status: Full Code Allergies: No Known Allergies CHIEF COMPLAINT: Headache INTERVAL HISTORY Initial Presentation (Admitted 12/03/2020): The patient is a 50-year-old male with a history of complex regional pain syndrome s/p nerve stimulator who was transferred from [facility] for SAH. Pt notes that he [...] not resolve his pain, he went to [facility] ED for evaluation. CT Head w/o contrast and CTA Neck and Head revealed SAH with no aneurysm. [facility] [place] [facility] [facility] for neuro-endovascular and neuro-critical care evaluation. Pt arrived to [facility], where the CTH and CTA re-demonstrated the [...] Samantha Husain MD Neuro Critical Care Pager [phone] 12/08/2020 11:22 AM Associated attestation - Conor [...] MD, PhD Stroke, Neurocritical Care & Neurointervention [facility] Stroke Network [facility] Stroke [facility] [place] Electronically signed 12/07/2020 at 6:32 PM Associated [...] 35 minutes Carolyn Joseph MD, MS Office [phone]. Cell [phone] Stroke, Neurocritical Care & Neurointervention [facility] Stroke Network [facility] Stroke [facility] [place] * Samantha Husain MD - 12/07/2020 7:52 AM EST Daily Progress Note Neuro Critical Care Patient Name: Anibal Damon Patient : 1970 Room/Bed: [facility]0540-01 Code Status: Full Code Allergies: No Known Allergies CHIEF COMPLAINT: Headache INTERVAL HISTORY Initial Presentation (Admitted 12/03/2020): The patient is a 50-year-old male with a history of complex regional pain syndrome s/p nerve stimulator who was transferred from [facility] for SAH. Pt notes that he [...] not resolve his pain, he went to [facility] ED for evaluation. CT Head w/o contrast and CTA Neck and Head revealed SAH with no aneurysm. Pt was transferred to [facility] for neuro-endovascular and neuro-critical care evaluation. Pt arrived to [facility], where the CTH and CTA re-demonstrated the [...] Samantha Husain MD Neuro Critical Care Pager [phone] 12/07/2020 2:15 PM Associated attestation - Conor [...] MD, PhD Stroke, Neurocritical Care & Neurointervention [facility] Stroke Network [facility] Stroke Center [facility] [place] Electronically signed 12/06/2020 at 10:37 AM Associated [...] 35 minutes Carolyn Joseph MD, MS Office [phone]. Cell [phone] Stroke, Neurocritical Care & Neurointervention [facility] Stroke Network [facility] Stroke [facility] [place] * Samantha Husain MD - 12/06/2020 9:08 AM EST Daily Progress Note Neuro Critical Care Patient Name: Anibal Damon Patient : 1970 Room/Bed: [address] [place] [address] Code Status: Full Code Allergies: No Known Allergies CHIEF COMPLAINT: Headache INTERVAL HISTORY Initial Presentation (Admitted 12/03/2020): The patient is a 50-year-old male with a history of complex regional pain syndrome s/p nerve stimulator who was transferred from [facility] for SAH. Pt notes that he [...] not resolve his pain, he went to [facility] ED for evaluation. CT Head w/o contrast and CTA Neck and Head revealed SAH with no aneurysm. Pt was transferred to [facility] for neuro-endovascular and neuro-critical care evaluation. Pt arrived to [facility], where the CTH and CTA re-demonstrated the SAH with no obvious aneurysm. Pt still notes having his severe non-radiating headache with associated photophobia. Pt denies any use of AC/AP. Pt denies any fevers, chills, change in vision, chest pain, shortness of breath, abdominal pain, nausea/vomiting, numbness/tingling or weakness. Admitted to the Neuro ICU for close monitoring. 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 Pt notes that he [...] not resolve his pain, he went to [facility] for evaluation. CT Head w/o contrast and CTA Neck and Head revealed SAH with no aneurysm. Pt was transferred to [facility] for neuro-endovascular and neuro-critical care evaluation. Pt arrived to [facility], where the CT H and CTA re-demonstrated [...] No therapy recommended at discharge. Recommendations: Requires CHIEF SERVICE DISPATCHER Intervention: No Duration/Frequency of Treatment: No need [...] contrast. Case discussed with Dr. joseph attending. Gefof Dodson MD, PhD Stroke, Neurocritical Care & Neurointervention [facility] Stroke Network [facility] Stroke [facility] [place] Electronically signed 12/05/2020 at 9:18 AM Associated [...] 35 minutes Carolyn Joseph MD, MS Office [phone]. Cell [phone] Stroke, Neurocritical Care & Neurointervention [facility] Stroke Network [facility] Stroke [facility] [place] * Samantha Husain MD - 12/05/2020 7:43 AM EST Daily Progress Note Neuro Critical Care Patient Name: Anibal Damon Patient : 1970 Room/Bed: 0547/0547-01 Code Status: Full Code Allergies: No Known Allergies CHIEF COMPLAINT: Headache INTERVAL HISTORY Initial Presentation (Admitted 12/03/2020): The patient is a 50-year-old male with a history of complex regional pain syndrome s/p nerve stimulator who was transferred from [facility] for SAH. Pt notes that he [...] not resolve his pain, he went to [facility] ED for evaluation. CT Head w/o contrast and CTA Neck and Head revealed SAH with no aneurysm. Pt was transferred to [facility] for neuro-endovascular and neuro-critical care evaluation. Pt arrived to [facility], where the CTH and CTA re-demonstrated the [...] per day CONTINUOUS INFUSIONS: clevidipine Stopped (12/04/20 1781) sodium chloride 75 mL/hr at 12/05/20 5599 PRN MEDICATIONS: magnesium hydroxide, sodium chloride flush, [...] Samantha Husain MD Neuro Critical Care Pager [phone] 12/05/2020 3:43 PM Associated attestation - Conor [...] 12/04/2020 10:21 AM EST Speech Language Pathology [facility] Speech Language Pathology Date: 12/04/2020 Patient Name: Anibal Damon Date of : 1970 AGE: 50 y.o. Patient Not Available for Speech Therapy Due to: [] Testing [] Hemodialysis [] Cancelled by RN [x] Surgery: diagnostic angio [] Intubation/Sedation/Pain Medication [] Medical instability [] Other: Next scheduled treatment: 12/05 Completed by: Vilma Hillman MShana [facility]-CHIEF SERVICE DISPATCHER * Dse Tellez, OT - 12/04/2020 9:30 AM EST [...] Box MD Stroke, Neurocritical Care & Neurointervention [facility] Electronically signed 12/04/2020 at 8:22 AM Associated [...] 35 minutes Carolyn Joseph MD, MS Office [phone]. Cell [phone] Stroke, Neurocritical Care & Neurointervention [facility] * Xochitl Reeves, BIB - SUPERVISOR [employer]ING DEPARTMENT - 12/04/2020 8:10 AM EST Daily Progress Note Neuro Critical Care Patient Name: Anibal Damon Patient : 1970 Room/Bed: [address] [place], [place] [id number] Code Status: FULL Allergies: No Known Allergies CHIEF COMPLAINT: Headache INTERVAL HISTORY Initial Presentation (Admitted ): The patient is a 50-year-old male with a history of complex regional pain syndrome s/p nerve stimulator who was transferred from [facility] for SAH. Pt notes that he [...] not resolve his pain, he went to [facility] ED for evaluation. CT Head w/o contrast and CTA Neck and Head revealed SAH with no aneurysm. Pt was transferred to [facility] for neuro-endovascular and neuro-critical care evaluation. Pt arrived to [facility], where the CTH and CTA re-demonstrated the [...] Neuro Critical Care. Xochitl Reeves APRN - [facility] Neuro Critical Care Pager [phone] 12/04/2020 8:10 AM Associated attestation - Samy [...] hemorrhage) (HCC) Samy Groves MD [address] [phone] [facility] Status Reason Specialty Diagnoses / Procedures Referre d By Contact Referred To Contact Closed Radiology Diagnoses Sciatica of left side Procedures CT LUMBAR SPINE WO CONTRAST Geoff Dodson MD [facility] [place], [address] [place] [address], [address] [place] [address] Status Reason Specialty Diagnoses / Procedures Referre d By Contact Referred To Contact Closed Radiology Diagnoses SAH (subarachnoid hemorrhage) (HCC) Procedures CTA HEAD W CONTRAST [id number] [place] [address] [place] [address] Status Reason Specialty Diagnoses / Procedures Referre d By Contact Referred To Contact Closed Radiology Diagnoses SAH (subarachnoid hemorrhage) (HCC) Procedures CTA HEAD W CONTRAST [phone] case # [id number] Carolyn Joseph MD [address] [facility] [address] [address] Specialty Diagnoses / Procedures Referred By Contac t Referred To Contact Diagnoses Complex regional pain syndrome type 1 of left upper extremity COMPLEX REGIONAL PAIN SYNDROME TYPE 1 OF LEFT UPPER EXTREMITY Procedures NM OFFICE/OUTPT VISIT,PROCEDURE ONLY NM REVISION SPINAL NEUROSTIM ELECTRODE PLATE/PADDLE, INCL FLUORO EXPLANTATION OF SPINAL CORD STIMULATOR (REGULAR TABLE, PRONE) Nidia Archer DO [address] [facility] [address] [address] [facility] [address] [place] [address] Referral ID Status Reason Start Date Expiration Date Visits Re quested Visits Authorized [id number] 1 1 Specialty Diagnoses / Procedures Referred By Contac t Referred To Contact Radiology Diagnoses SAH (subarachnoid hemorrhage) (HCC) I60.9 (ICD-10-CM) - SAH (subarachnoid hemorrhage) (HCC) Procedures MRI BRAIN W WO CONTRAST NM MRI BRAIN COMBO 14646 - NM MRI BRAIN COMBO Carolyn Joseph MD [address] [facility] [address] [address] Referral ID Status Reason Start Date Expiration Date Visits Re quested Visits Authorized [id number] Closed 08/30/2022 07/02/2023 1 1 Specialty Diagnoses / Procedures Referred By Contac t Referred To Contact Radiology Diagnoses Complex regional pain syndrome type 1 of left upper extremity Failure of spinal cord stimulator, subsequent encounter G90.512 (ICD-10-CM) - Complex regional pain syndrome type 1 of left upper extremity Procedures MRI CERVICAL SPINE WO CONTRAST NM MRI, CERV SPINE 17801 - NM MRI, CERV SPINE Sukhjinder Musa W, BLURB WRITER - SUPERVISOR [employer]ING DEPARTMENT [address] [facility] [address] [address] Referral ID Status Reason Start Date Expiration Date Visits Re quested Visits Authorized [id number] Closed 08/30/2022 08/24/2023 1 1 Ordered Prescriptions [...] section and content) DATE CREATED AUTHOR 09/03/2021 [facility] DATE CREATED AUTHOR AUTHOR'S ORGANIZ ATION 03/31/2023 [facility] DATE CREATED AUTHOR AUTHOR'S ORGANIZ ATION 03/24/2024 [facility] DATE CREATED AUTHOR AUTHOR'S ORGANIZ ATION 04/02/2024 [facility] Care Teams (unrecognized sec tion and content) Rehab Consultant Relationship Specialty [place] [address] [place], [place] [phone] PCP - General Physician Planner 05/22/21 Rehab Consultant Relationship Specialty [place] [address] [place] [address] PCP - General Physician Planner 05/22/21 Rehab Consultant Relationship Specialty [place] [address] [place] [address] PCP - General Physician Planner 05/22/21 Rehab Consultant Relationship Specialty Start [place] [address] [place] [address] PCP - General Physician Planner 05/22/21 Rehab Consultant Relationship Specialty Start [place] [address] [place] [address] PCP - General Physician Planner 05/22/21 Rehab Consultant Relationship Specialty Start [place] [address] [place] [address] PCP - General Physician Planner 05/22/21 Scheduled Active and Recently Administ ered [...] adsorbable (GELFOAM) sponge (CANCELED) PRN, Starting on Haleigh 07/19/22 at 1025, Intra-op 1025 (Given - Provid er: Nidia Archer DO) lidocaine-EPINEPHrine 1 %-1:[id number] injection (CANCELED) PRN, Starting on Haleigh 07/19/22 [...] BE BASED ON THE PRIMARY CLINICAL RECORDS. [employer] provides no warranty or guarantee of the accuracy or completeness of information in this document.
[2024-05-06 08:54] LABS: Basophils Percent Auto 0.5 % (0.2-2.0); Eosinophils Absolute Auto 0.1 10^3/uL (0.0-0.7); Eosinophils Percent Auto 1.2 % (0.9-7.0); Hematocrit 37.6 % (42.0-54.0); Immature Granulocytes Abs Auto 0.04 10^3/uL (0.00-0.03); Immature Granulocytes Pct Auto 0.5 % (0.0-0.5); Lymphocytes Absolute Auto 1.3 10^3/uL (1.2-3.8); Lymphocytes Percent Auto 17.7 % (20.5-60.0); Mean Corpuscular HGB Conc 31.9 g/dL (29.9-35.2); Mean Corpuscular Hemoglobin 26.1 pg (25.9-34.0); Mean Corpuscular Volume 81.7 fL (80.0-94.0); Mean Platelet Volume 8.8 fL (9.5-13.5); Monocytes Absolute Auto 0.7 10^3/uL (0.3-0.8); Neutrophils Absolute Auto 5.3 10^3/uL (1.4-6.5); Neutrophils Percent Auto 71.1 % (43.0-75.0); Platelet Count 477 10^3/uL (150-450); Red Cell Distribution Width 14.6 % (11.0-15.0); White Blood Count 7.5 10^3/uL (4.0-11.0)
[2024-05-06 09:56] LABS: Alanine Aminotransferase 38 U/L (16-63); Albumin Globulin Ratio 0.6; Albumin Level 2.8 g/dL (3.4-5.0); Alkaline Phosphatase 133 U/L (46-116); Anion Gap 13.2; Aspartate Amino Transferase 27 U/L (15-37); BUN Creatinine Ratio 20.2; Bilirubin Total 0.3 mg/dL (0.2-1.0); C Reactive Protein 1.84 mg/dL (<=0.50); Calcium 8.4 mg/dL (8.5-10.1); Chloride 105 mmol/L (98-107); Estimated GFR (African America >60 (>=60); Estimated GFR (Non-African Ame >60 (>=60); Globulin 4.6 g/dL; Glucose 101 mg/dL (74-106); Potassium 4.2 mmol/L (3.5-5.1); Sodium 140 mmol/L (136-145); Total Protein 7.4 g/dL (6.4-8.2)
[2024-05-06 11:41] LABS: Erythrocyte Sedimentation Rate 99 mm/hr (<=20)
== END 2024-05-06 08:23 | disposition home or self-care (01) ==
LOC: LAB 08:23
PROVIDERS: PCP Internal Medicine; Visit Provider Orthopaedic Surgery
DX: M00.061 Staphylococcal arthritis, right knee (principal); M00.861 Arthritis due to other bacteria, right knee
CPT/HCPCS: 36592; 80053; 85025; 85652; 86140; 96365

== ENCOUNTER 2024-05-08 13:38 | Inpatient (IN) | payer OTHER, SELFPAY ==
--- NOTE | 2024-05-08 13:43 | ECG_ITS ---
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
[2024-05-08 13:51] VITALS: BP 152/91; PULSE 70; TEMP 37.2; O2SAT 100; BMI 23.6
--- NOTE | 2024-05-08 13:54 | ED_ITS ---
HPI HPI - General Adult General Chief complaint: Skin/Abscess/Foreign Body Stated complaint: POSSIBLE INFECTION AT PICC LINE Time Seen by Provider: 05/08/24 13:40 Source: patient Mode of arrival: walk-in Limitations: no limitations History of Present Illness HPI narrative: Patient is a very pleasant 54-year-old male who presents to the emergency department with questionable infection in his PICC line. He was recently admitted to this facility for treatment of septic arthritis to the left knee and was found to have positive blood cultures. A PICC line was established to the right arm and he has been receiving daily Rocephin which is scheduled for 6 weeks. He also had 1 orthopedic washout of the left knee while hospitalized. He states overall he has been doing well. He has not had any objective fevers. He states his temperatures have been 99.0 Fahrenheit while receiving his IV infusions of Rocephin daily. He has a mild headache. He has no other complaints of pain, vomiting. He is eating and drinking well. He is ambulatory. Related Data Home Medications ?Medication ?Instructions ?Recorded ?Confirmed atorvastatin 20 mg tablet 20 mg PO DAILY 04/22/24 04/28/24 citalopram 10 mg tablet 10 mg PO DAILY 04/22/24 04/28/24 Previous Rx's ?Medication ?Instructions ?Recorded amlodipine 10 mg tablet 10 mg PO DAILY #30 tabs 04/18/24 ceftriaxone 1 gram intravenous 1 g IV DAILY 04/27/24 solution Allergies Allergy/AdvReac Type Severity Reaction Status Date / Time codeine Allergy Mild Nausea Verified 04/18/24 15:36 Opioid HPI Opioid Management Most Recent Opioid Data: Last Pain Scale 0 04/27/24 10:05 Last ORT Total Score 0 04/22/24 15:09 Last ORT Risk Category Low Risk 04/22/24 15:09 Review of Systems ROS Constitutional Denies: fever or chills Ears, nose, mouth, and throat Denies: throat pain or nasal congestion Respiratory Denies: shortness of breath Gastrointestinal Denies: nausea or vomiting Integumentary/Breast Reports: redness; Denies: rash Hematologic/Lymphatic Denies: easy bruising or easy bleeding [facility] History (Updated 05/08/24 @ 14:32 by ROLANDO Wilhelm) Septic arthritis ?M00.9 - Pyogenic arthritis, unspecified (ICD-10) Parainfluenza virus infection ?B34.8 - Other viral infections of unspecified site (ICD-10) Swelling of joint, knee, right ?M25.461 - Effusion, right knee (ICD-10) Brain bleed ?I61.9 - Nontraumatic intracerebral hemorrhage, unspecified (ICD-10) Reflex sympathetic dystrophy ?G90.50 - Complex regional pain syndrome I, unspecified (ICD-10) Anxiety ?F41.9 - Anxiety disorder, unspecified (ICD-10) High cholesterol ?E78.00 - Pure hypercholesterolemia, unspecified (ICD-10) Hypertension ?I10 - Essential (primary) hypertension (ICD-10) Surgical History H/O elbow surgery ?Z98.890 - Other specified postprocedural states (ICD-10) S/P placement of nerve stimulator ?Z96.82 - Presence of neurostimulator (ICD-10) Family History Father Family history of cancer Family history of hypertension Family history of myocardial infarction Mother Family history of diabetes mellitus Family history of hypertension Grandfather Family history of stroke Social History Within the past year, how often did you have a drink containing alcohol: 2-3 times a week Within the past year, how often did you have six or more drinks on one occasion: never Smoking status: Never smoker Non-prescribed substance use: denies use 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[employer])...[employer] Highest level of school completed/degree received: Bachelor's degree Are you now , , , , never or living with a partner: Little interest or pleasure in doing things: not at all Feeling down, depressed, or hopeless: not at all Feel stressed/tense/nervous/anxious/difficulty sleeping: only a little Exam Narrative Exam Narrative: Gen.: Awake, alert, in no distress Head: Normocephalic, atraumatic ENT: Moist mucous membranes Respiratory: No respiratory distress, lungs clear bilaterally Cardio: Regular rate and rhythm Extremities: Moves extremities equally, Left knee with Kwadwo wrap, no redness or drainage. PICC line to the right medial arm with minimal erythema at the insertion site of the skin, no palpable induration or fluctuance. No red streaking. Psych: Normal mood and affect Neuro: No focal neuro deficit Skin: Warm, dry, intact Constitutional Vital Signs, click to edit/add: Last Vital Signs Temp 98.9 F 05/08/24 13:51 Pulse 70 05/08/24 13:51 Resp 18 05/08/24 13:51 BP 152/91 H 05/08/24 13:51 Pulse Ox 100 05/08/24 13:51 O2 Del Method Room Air 05/08/24 13:51 Course Vital Signs Vital signs: Vital Signs Temperature 98.9 F 05/08/24 13:51 Pulse Rate 70 05/08/24 13:51 Respiratory Rate 18 05/08/24 13:51 Blood Pressure 152/91 H 05/08/24 13:51 Pulse Oximetry 100 05/08/24 13:51 Oxygen Delivery Method Room Air 05/08/24 13:51 Temperature 98.9 F 05/08/24 13:51 Pulse Rate 70 05/08/24 13:51 Respiratory Rate 18 05/08/24 13:51 Blood Pressure 152/91 H 05/08/24 13:51 Pulse Oximetry 100 05/08/24 13:51 Oxygen Delivery Method Room Air 05/08/24 13:51 Medical Decision Making MDM Narrative Medical decision making narrative: PICC line was removed, tip of the PICC line was cultured under sterile fashion. This is pending at this time. The remainder of the labs are obtained including a new set of blood cultures. The patient was positive for parainfluenza on his previous visit, respiratory panel was appropriate obtained. Patient covered with Zosyn and vancomycin until blood cultures result. Vital signs are stable at time of admission to hospitalist. Medical Records Medical records reviewed: Yes I reviewed the patient's medical records Lab Data Lab results reviewed: Yes I reviewed the patient's lab results Labs: Lab Results 05/08/24 Range/Units 14:05 WBC 7.9 (4.0-11.0) 10^3/uL RBC 4.50 L (4.70-6.10) 10^6/uL Hgb 11.8 L (14.0-18.0) g/dL Hct 36.3 L (42.0-54.0) % MCV 80.7 (80.0-94.0) fL MCH 26.2 (25.9-34.0) pg MCHC 32.5 (29.9-35.2) g/dL RDW 14.6 (11.0-15.0) % Plt Count 434 (150-450) 10^3/uL MPV 8.7 L (9.5-13.5) fL Neut % (Auto) 72.5 (43.0-75.0) % Lymph % (Auto) 18.7 L (20.5-60.0) % Weakley % (Auto) 6.6 (1.7-12.0) % Eos % (Auto) 1.1 (0.9-7.0) % Baso % (Auto) 0.5 (0.2-2.0) % Neut # (Auto) 5.7 (1.4-6.5) 10^3/uL Lymph # (Auto) 1.5 (1.2-3.8) 10^3/uL [place] # (Auto) 0.5 (0.3-0.8) 10^3/uL Eos # (Auto) 0.1 (0.0-0.7) 10^3/uL Baso # (Auto) 0.0 (0.0-0.1) 10^3/uL Abs Immat Gran (auto) 0.05 H (0.00-0.03) 10^3/uL Imm/Tot Granulo (auto) 0.6 H (0.0-0.5) % VBG pH 7.403 (7.330-7.430) VBG pCO2 45.0 (40.0-52.0) mmHg Discharge Plan Discharge Chief Complaint: Skin/Abscess/Foreign Body Patient Disposition: Admitted As Inpatient Time of Disposition Decision: 14:32
[2024-05-08 14:18] LABS: Adenovirus NOT DETECTED (NOT DETECTE); Bordetella parapertussis NOT DETECTED (NOT DETECTE); Coronavirus 229E NOT DETECTED (NOT DETECTE); Coronavirus HKU1 NOT DETECTED (NOT DETECTE); Coronavirus NL63 NOT DETECTED (NOT DETECTE); Coronavirus OC43 NOT DETECTED (NOT DETECTE); Human Metapneumovirus NOT DETECTED (NOT DETECTE); Human Rhinovirus/Enterovirus NOT DETECTED (NOT DETECTE); Influenza A NOT DETECTED (NOT DETECTE); Influenza B NOT DETECTED (NOT DETECTE); Mycoplasma pneumoniae NOT DETECTED (NOT DETECTE); Parainfluenza Virus 1 NOT DETECTED (NOT DETECTE); Parainfluenza Virus 2 NOT DETECTED (NOT DETECTE); Parainfluenza Virus 3 NOT DETECTED (NOT DETECTE); Parainfluenza Virus 4 NOT DETECTED (NOT DETECTE); Respiratory Syncytial Virus NOT DETECTED (NOT DETECTE); SARS-CoV-2 NOT DETECTED (NOT DETECTE)
[2024-05-08 14:21] LABS: pH VBG 7.403 (7.330-7.430)
[2024-05-08 14:23] LABS: Basophils Percent Auto 0.5 % (0.2-2.0); Eosinophils Absolute Auto 0.1 10^3/uL (0.0-0.7); Eosinophils Percent Auto 1.1 % (0.9-7.0); Hematocrit 36.3 % (42.0-54.0); Hemoglobin 11.8 g/dL (14.0-18.0); Immature Granulocytes Pct Auto 0.6 % (0.0-0.5); Lymphocytes Absolute Auto 1.5 10^3/uL (1.2-3.8); Lymphocytes Percent Auto 18.7 % (20.5-60.0); Mean Corpuscular HGB Conc 32.5 g/dL (29.9-35.2); Mean Corpuscular Hemoglobin 26.2 pg (25.9-34.0); Mean Corpuscular Volume 80.7 fL (80.0-94.0); Mean Platelet Volume 8.7 fL (9.5-13.5); Monocytes Absolute Auto 0.5 10^3/uL (0.3-0.8); Monocytes Percent Auto 6.6 % (1.7-12.0); Neutrophils Absolute Auto 5.7 10^3/uL (1.4-6.5); Neutrophils Percent Auto 72.5 % (43.0-75.0); Platelet Count 434 10^3/uL (150-450); Red Cell Distribution Width 14.6 % (11.0-15.0); White Blood Count 7.9 10^3/uL (4.0-11.0)
[2024-05-08 14:24] LABS: Immature Granulocytes Abs Auto 0.05 10^3/uL (0.00-0.03)
[2024-05-08] MEDS: 0.9 % SODIUM CHLORIDE 1,000 ML 1000 ML IV (14:25)
[2024-05-08 14:35] LABS: Prothrombin Time 10.6 sec (9.0-11.6)
[2024-05-08 14:38] LABS: Lactate/Lactic Acid 1.1 mmol/L (0.4-2.0)
[2024-05-08 14:39] LABS: Alanine Aminotransferase 29 U/L (16-63); Albumin Globulin Ratio 0.6; Alkaline Phosphatase 131 U/L (46-116); Anion Gap 11.3; Aspartate Amino Transferase 21 U/L (15-37); BUN Creatinine Ratio 14.1; Bilirubin Total 0.3 mg/dL (0.2-1.0); C Reactive Protein 2.06 mg/dL (<=0.50); Calcium 8.6 mg/dL (8.5-10.1); Carbon Dioxide 28.7 mmol/L (21.0-32.0); Chloride 103 mmol/L (98-107); Estimated GFR (African America >60 (>=60); Estimated GFR (Non-African Ame >60 (>=60); Globulin 4.7 g/dL; Glucose 90 mg/dL (74-106); Magnesium 1.7 mg/dL (1.8-2.4); Sodium 139 mmol/L (136-145); Total Protein 7.7 g/dL (6.4-8.2); Troponin I High Sensitivity 6.3 pg/mL (4.0-76.1)
[2024-05-08] MEDS: VANCOMYCIN HCL 1,250 MG in 0.9 % SODIUM CHLORIDE 250 ML 250 MG IV (14:55)
[2024-05-08 14:58] LABS: Erythrocyte Sedimentation Rate >130 mm/hr (<=20)
[2024-05-08 15:31] VITALS: PULSE 59; O2SAT 98
[2024-05-08 16:11] VITALS: BP 152/83; PULSE 58; TEMP 36.3; O2SAT 98; BMI 23.8
--- OUTSIDE RECORDS SUMMARY | 2024-05-08 16:14 | XMS_ITS | CCD ---
Author Organization [facility] Inform ion Partnership [facility] Care Team Providers Care Plant Operator Name Role Phone Unavailable Primary Care Provider Unavailrachael e Baljinder Hamilton Primary Care Provider Baljinder Hamilton Primary Care Provider Baljinder Hamilton Primary Care Provider Baljinder Hamilton Primary Care Provider SUKHJINDER MUSA Referring Unavailable BALJINDER ARTHUR Primary Care Unavailable MEHREEN OLIVAREZ Referring Unavailable BALJINDER ARTHUR Primary Care Unavailable CAROLYN JOSEPH Referring Unavailable PEDRITO ARTHURIN Gisela Primary Care Unavailable BALJINDER ARHTUR Referring Unavailable PEDRITO ARTHURIN Gisela Primary Care Unavailable Nicole Jean Attending Unavailable Nicole Jean Admitting Unavailable Provider, None Primary Care Unavailable DALIA CÁRDENAS Attending Unavailable Allergies Allergy Classification Reported Allergen(s) Allergy Type Date of Onset Reaction(s) Facility (7 sources) HYDROcodone Drug Allergy 1 [facility] (1 source) Codeine; Translations: [codeine] Drug Allergy [facility] Repository NEGATED: Highlighted row has been ruled out! (2 sources) Other Propensity to adverse reactions 3 Other (See Comments) ANGI BROWER [facility] Medications Current Medications Medication Drug Class(es) Dates [...] mg docusate sodium 50 mg / sennosides, half-way 8.6 mg oral tablet (1 source) Start: [...] immediate release tablet Indications: SAH (subarachnoid hemorrhage) ([facility]) Take 1 tablet by mouth every 8 [...] sodium chloride 0.9 % 250 mL infusion Problems Active Problems Problem Classification Problem Date [...] [Other seborrheic keratosis] Onset: 09-01-2021 09-01-2021 Episodic Results Test Name Value Interpretation Reference Range Facility Coding Summaryon 03-24-2024 Coding Summary HTMLBase 64 OxrmieesPUe7wEh+PGhl YWQ+PQ0VCCPuZ52tnKXq nN7wE4KKRZqECoyeWKSP GAyLGxBefuPiNU7msKIi ZXJu IC8+MM6uTMMtZocgjTRt n4U4kET0Y08osq2mUZvc jJR3JYAbMlMznsgjr8ze jGn7ZRgdNnkvCpQk IWNlyJ49KRY4aS04Pt21 cXZquYThe4wleQg5JcEh JAYsLJQ5ySlpXKbmr2Pt JSUzL35ydSMbq3R5 IGNvbGxhcHNlOyBlbXB0 cZ4xYGknyeopp8ouotjw Gxq7qw59oJFtc1L1mSM4 R6QhaaR8SJEdqPGd RjzyzGEHhV3hwdxmh2kv zbdoTpGmDGGeSFp5ECr0 GJQmjTguWgPzUR43TNH3 DFFewwLpF4XzPCKh mLvzUlK5h5P3Ux8KT9IE TtjwD0FETBDMTEcbaPE+ II62uw62L4TxGwwzXap3 QSYtRFC8aRG2jU4g ZPJzNTlzl5I3pMQ8P3Ph gfWubv0sf7fmZJYbIJag L95azIWcx8Q0JWRqkVD8 POQwnEbqPcZhtN45 Oyc+OLYvyUmzl4KiNcbn m2bsc9sbnGe8JmsqQDYj taYmdPnmVPC4t1ZbIr6o STKknVC9wWF3hJ2b YpRfOuL7LDllI062LuBc hELyEbadP54aT4XkoTC+ DBEaLtj5ZCFycMgkLR8n F7AgCJTcospoyYGn dAraSF5jFWGhovspSYHt fX1pSBSyO4j6PfAfRcW3 DRgjI6YkXWIoygdqIg31 cX6rAjHcOlD7CHwa R6SrrwF8IFDogKSfTUau JBR8F17xh2Q8WALfWHDl UVY9cNJ2iV0cjQbmufdq bGVmdDsgdmVydGlj DZcxDPreR447RPKkuYcd PkNvZGluZyBEYXRlOiAg MDQvMzAvMjAyNDwvdGQ+ QSFlEJK8lRhjYMXq xQPdQHbuTf2kjBpclGir QE2hSNJdkbggOQXmqW7i OPNwwCYufGorVG3vMJLi elrkk449HsBrMKT5 YFWbzQKsG6OfxO0kUwEl PTNqQIGzK2LhjGMuUKef J282AHxdKpZ6ZULkxvUd I3SkKEHphApkAdN4 c2W5Yp2Yp2XyyosoQ3Ep jAPsDpTpBhscSGp9G8Uh PjwvdHI+HV31ATJkYF46 BNp1XZN9eUmjLXfq VLFdZ9KtkT6nDrObPJVh ZGRkOyc+PHRhYmxlIHdp ZHRoPScxMDAlJyBzdHls KV9eNl8uTPDrKIKs fZimbNEzKzKtj8anLNOc WRwiRL5smPtuR7XvrVK8 YVTve4n7Bu14C44uY7Co dXA+MNOjzLD6fXK0 jI7iEgIfWxT4FCrzS261 ArTpqOIrWpjce7dkk3zi fEu1PnT8FVBfjzDthBam DHJ1l0FaJu66M19w IHdpZHRoPSIxNSUiIHZh uVcbyr2irW0rIa7+PGNv hGO2dGJ6cV4nWxNyDcC1 HOimR818OwQveSTo Zlnpw8nbn1awbHl2NsRe YVSdfpAmjMuxPRE8u7Iu Jd23A6VwjWdfw0YgXdx2 ch87dGYzx0U4uHG5 C1UkRCHjdxcadIXqdFvi QM1nCRXqaxwmKFBqsL8h HOAkD7q7PdObBcU2SQok B4VujtC9AVPlkKIm XDSedDHNfD8fkohkt1gk yhyiPzMaSFXaHQk2UHb3 KRJibFwfIlDpKVH9OpV7 CLI8zMChgK8gvQoe dvobfF0vXxl+PQQ9eRRu qFYSNN9fVexttEN+PHRk KDW1pJadCWtyEXVnaX0u DJScM8y1GkUlCmN7 ADulO5MysnI6FEAwbUNk UWLjnUXIxG6eozgul8ff sgwsEiLtDCVmTVn2HPl7 LWFsaWduOiBsZWZ0 BpB1LRL9oVLyuR4deFss btmrqA5oGif+QmlydGgg DFN5GNa0Z5CyDhs5BBIk bXggCZ9ibPYiULzj Mj0tyQforFpdZK2mIEWo vgujt842RoAem7slKDPw tDChPYtwOBF0J20of0G6 BLCmBTEzQVY2gQT8 cO2viWgpkmsmcEQmfGqd dxMbpUgnNWheNZlsZ654 KLIvyAgiTwBpOOo2N2Ut Slb5RKBndDznAI6s nZCxDVpaJw2icWtdxRgu IO4fZEUrvdtoj887QaKs v4ukCOSikYUdZSviUTA4 C53rx0C3PRDfLRKm NLZ1gLH1dQ8neXsfunbv bGVmdDsgdmVydGljYWwt CCcxF124YWTxkAueEiAm lPo6F8VbQny6XGPc rYqmOW9zhSXeHWhxJj7x hQxknKbhTB3uZHIdgffi n165QeObj9guNUWcyRCm EXogZWR8G12uv3D7 JAJrBBCbLID2oQY2eK5m bGlnbjogbGVmdDsgdmVy vHckCPriNVdhU330VNIv cDsnPlBhdGllbnQg PXtvRNu6O7WhOkohnSP+ JN99NYDqKF29hVPtmURp j7hjlVg0UrClLQPbOXJ1 jNtxALxia9SxOMAf X17icLAjc1A5VFZdaIaa mVQyNmJjkQG5dQ0yTKhc yzmjn5iofurrQayzy9xx do22lX05H49tXDlh ZHRoPSIzMCUiIHZhbGln fh4xjC7aSo3+PGNvbCB3 mVQ0wL0fYOVmKnM4DRwc C370UyEoeHZkPodj p1fqr5drhId4YvV6VDOm kbTjyOkeARR1b4MsZd14 D41aKTxxROJkPXMjYBSe MDDruTshoj7xiK1i Ii8+NDDmxGA4kKP0oW7c PxQfLcK4WRggE086AyNb iRFzUcfrX92xZ5KyrOA+ CRNzGat6FFDbrAhh IP6ksHSjQFikIo5bBHU0 WjQsLbRnUJjdO5ZlDZZg mrltxyknhCQ0HQGdAAJr aG45Lk2leTjkHQXi cHVXuC9ggrakj3azwnfp MaZtUUMmCAr6IQj9XTZz hTlzXnTpOBR1XxE7CPH8 bYXoeC3unLhsxmfd iK4oE9NvHAKdjgesAe44 yH5nLpLyYgD2FBaoXgc+ VFJPVVQsIFBISUxMSVAg QHlVQL84S1UaBfp1 USOpfUbnGK8moPNoSGfh Am6fzNnysJkzZI5mYBGd zynoENJwdG1gGIMpfABr oYfyZD8eQXCodotj v357CoNkGZI7IHLsvICz E6SpdW4bHmMiGZLfMSGl D1RwrNJsNBvlG375ZUmd FkM2CNIebwDqT2Tg XNAvyPlfVxC9j2E6Qf0t AE6sDn2aCCR4JR51BF65 cQOcw8I7rOV5G3GoFFZt luhmciasvPH2PPOo TYZsiU34kWKnSUuhPw7j m0E5x957PSUvKSGgiF23 Ka7gpPyrOZWiiDFUzH9b ipamy5gkseubHsUn PGRkDBf7QGz3EKQcyKvx TuDdGGA7ChZ3WAK6dDFs eG7diJierkfnnB9iVsw+ IBGpTNOsniL1G4Ir Jva9EKPvxOroUI7lkIDq YQxqLf1jhFbayJgtIP2g HOGcrhihJRNquB0cJRUo rNDspRrtLQ7hYROb gdrsp354VtXeKEY0VOKr yULeF1PijZ8hGeExSAZo SWItK2XdmVBvDZajF432 YKfqIjA7CMDiwkTn I8ZmJIBdqEobUeS6y2G1 Sv8STXtQDO59MP72xHEs a9D5tIN7H0VsVODytbsh sgzrdPS3KHCyUDKc dE03fRIwITkwLo4pq9W7 x437RALuQVBftH32Ld7q oNsuLKMtzRFPtF7zeabx x8omecssIgWbMLGk JDx0DSm0XAMipNgpIoOa PGH9CrU2LCK1pLRqsO9g oOobyrkciQ8rFwe+RW1l gmkadfQ7LT71ET13 F1XjBhzotAJpeVR+PHRh YmxlIHdpZHRoPScxMDAl CvKyeBmcWE5kZb6xZARp LWNvbGxhcHNlOiBj r8flHPWsRVjwFI8xoPkf U1JagEA2PKMfg0f9Fr45 D49tR9UcwWZ+PGNvbCB3 nCI9zB6jEaPyXjT0 GKmuD291IdOnwHZwCruh p9ikm1dsgDt8ByJvMFKh ycPsxDwxKSH6v9NwJe91 C61rROtpXZOtKTCi BEIuFLUclXtkyu2fwM2p Ii8+XDRpkZK4aMV8kI2y DrIpBdZ5IRnpR379MsRc iLBkEgovW08eT2Nm dXA+VKAmIft0AIEntCgf WE4taNNcXYbeVx1pSTQ9 IdQvWxQeOOhvK2OiYNQe ckovmiaqdKK8HEBo JMPjmU01Hf6kuIgjKc0t WUGzIOT9VMAjnEDtN3Cg tZ6bYoDwPREzVVDwR0Ub pFNfUWsvY391FEjl NuF3FQFtzdUxB2ReGUMx dVwdMyP7f7O7Xj4GuSnm dMJkDO6qZoZaFGn0L5Xj Czt1STWrqKsvSM0c wUKwMXgbPb6lcIjaoNaw XJ4nOOPfccbbb170XiUd u0cbVPUqiOYpYWnvKRT8 J73ds9I5VBDmMOKj YNW1yVA1rN2ahOqupstb bGVmdDsgdmVydGljYWwt XBiaC458YWEryTqlKjUF Qkd0N7WgVga8OTZk qIxlNQ4nkUBeQZjnIo3a kSuukGxrSG2zAXUsrfqs h859QuSjg5mvWMXaeJPr LXjkWNU5L38oy4M4 UKOwFVAyGOT7nFZ7cY1s bGlnbjogbGVmdDsgdmVy rUfqAEorMXepW596JGDv cRrrEv9PQoq3A5Bz Nuw5YZOoyLwyYN0hrKYp FCzbAa0rcZewcPenBT1b NTCbaslgx964MqUgo7xc IDEwcHQgVGltZXM7 I86jj7U0MRWcGJHpBMD4 sUC6pJ7zrHacmmcipILj dDsgdmVydGljYWwtYWxp J800MCVdwQikTtKp eWVyOjwvdGQ+FU57zw34 Z6GiInnuHct5EWMzADE9 uWC9qN4sMHFfJGiad8B3 cJI6H4TcrjWeyd9q b2x (more content not included)... Normal [facility] CT Head or Brain w/o [...] MD 03/17/24 4:30 pm Technologist: Vianey MACHADO Normal [facility] CT Spine Cervical w/o Contra [...] MD 03/17/24 4:32 pm Technologist: Vianey MACHADO [facility] ED Clinical Summaryon 2023 ED Clinical Summary [facility] Emergency Department [address] [place] [id number] ED Clinical Summary PERSON INFORMATION Name: ANIBAL DAMON Age: 53 Years Sex: MALE : 1970 MRN: Acct#: Visit Reason: Neck pain; Closed head injury without LOC; FALL- HEAD INJURY Arrival: 03/17/2024 15:37:09 Discharge: 03/17/2024 17:07:00 LOS: 000 01:30 Check In: 03/17/2024 15:37:09 Checkout:03/17/2024 17:07:00 Address: [address] [place] [address] PCP: Provider, None PROVIDER INFORMATION Provider Role Assigned Unassigned Nicole Jean WINDOWS ARCHITECT ED PA 03/17/2024 15:42:25 [place]ero PREMIX CONCRETE BATCHER Nurse 03/17/2024 15:44:39 VITALS INFORMATION Vital Sign Triage Latest Temperature Tympanic Temperature Temporal Artery Pulse Rate O2 Sat 98 % 98 % Respiratory Rate 16 br/min 16 br/min Blood Pressure /105 mmHg /105 mmHg MEDICAL INFORMATION Medications Given: Allergy Information: codeine PHYSICIAN DOCUMENTATION DISCHARGE INFORMATION: Discharge Disposition: Home Discharge Location: Home PATIENT EDUCATION INFORMATION Instructions: Head Injury, Adult, Qfvp-[id number] Follow-Up: With: Address: When: Provider, None [address] [place] [address] Within 3 to 5 days Comments: Follow-up with primary care in 3 to 5 days. If symptoms worsen or progress return to the emergency room. DIAGNOSIS: 1:Head injury due to trauma; 2:Blurred vision Patient Understands: Yes - Patient/family/careg iver verbalizes understanding of instructions given Comment: Normal [facility] ED Patient Summaryon 024 ED Patient Summary [facility] - Emergency Department [address] [place] [address] PATIENT DISCHARGE INSTRUCTIONS Patient Information Name: ANIBAL DAMON Age: 53 Years Date of : 1970 Reason For Visit: Neck pain; Closed head injury without LOC; FALL- HEAD INJURY Arrival Time: 03/17/2024 15:37:09 Primary Care Physician: Provider, None Attending Physician: Cheng Velarde MD Comment: Visit Diagnosis: Diagnoses This Visit Blurred vision (H53.8) Closed head injury without LOC ([id number]) Head injury due to trauma (S09.90XA) Neck pain ([id number]) The Pharmacy at [facility] is open Saturday through Saturday from 9A [...] alcohol and/or drug addiction problems; contact the [facility] 17/06 Crisis Hotline -Text 5WGAY uc 861648. If you received any narcotics, sedation, or [...] documents With: Address: When: Provider, None [address] [place] [address] Within 3 to 5 days Comments: Follow-up with primary care in 3 to 5 days. If symptoms worsen or progress return to the emergency room. Medication Information: The exam and treatment you received today in the [facility] Emergency Department were for an urgent problem and are not intended as complete care. It is important for you to follow up with a doctor, nurse practitioner, or physician?s specimen preparation assistant for ongoing care. If your symptoms [...] so we can reach you if necessary. [facility] Emergency Department has provided you with a complete list of medications post discharge. Please inform your swat team member/provider of your visit and for further instruction [...] a bum (more content not included)... Normal [facility] Basic Metabolic Panelon 05-0 Anion gap [Moles/Vol] 11 mmol/L 9 - 17 mmol/L [facility] Calcium [Mass/Vol] 9.0 mg/dL 8.6 - 10. 4 mg/dL [facility] Chloride [Moles/Vol] 106 mmol/L 98 - 10 7 mmol/L [facility] [employer] CO2 [Moles/Vol] 26 mmol/L 20 - 31 mmol/L [facility] [employer] Creatinine [Mass/Vol] 0.82 mg/dL 0.70 - 1.20 mg/dL [facility] GFR/1.73 sq M.predicted MDRD (S/P/Bld) [Vol rate/Area] - PINF [facility] Comment on above: These results are not [...] 103 mg/dL High 70 - 99 mg/dL [facility] Interpretation and review of laboratory results Abnormal [facility] Potassium [Moles/Vol] 4.5 mmol/L 3.7 - 5.3 mmol/L [facility] Sodium [Moles/Vol] 143 mmol/L 135 - 144 mmol/L [facility] Urea nitrogen [Mass/Vol] 15 mg/dL 6 - 20 mg/dL [facility] Basic Metabolic Profon 03-30 Anion gap [Moles/Vol] 11 mmol/L Normal 9-17 [facility] Comment on above: Performed By: #### B MP #### Lab [address] [facility] [place] [address] Business Analytics Manager: German Nguyen DO Calcium [Mass/Vol] 9.0 mg/dL Normal 8.6-10.4 [facility] Comment on above: Performed By: #### B MP #### Lab [address] [facility] [place] [address] Business Analytics Manager: German Nguyen DO Chloride [Moles/Vol] 106 mmol/L Normal 98-107 [facility] Comment on above: Performed By: #### B MP #### Lab [address] [facility] [place] [address] Business Analytics Manager: German Nguyen DO CO2 [Moles/Vol] 26 mmol/L Normal 20-31 [facility] Comment on above: Performed By: #### B MP #### Lab [address] [facility] [place] [address] Business Analytics Manager: German Nguyen DO Creatinine [Mass/Vol] 0.82 mg/dL Normal 0.70-1.20 [facility] Comment on above: Performed By: #### B MP #### Lab [address] [facility] [place] [address] Business Analytics Manager: Fanelly, German, DO GFR/1.73 sq M.predicted among non-blacks MDRD (S/P/Bld) [Vol rate/Area] mL/min/{1.73_m2} Normal >60 [facility] Comment on above: Result Comment: These [...] Performed By: #### B MP #### Lab [facility] [place] [address] Business Analytics Manager: German Nguyen DO Glucose [Mass/Vol] 103 mg/dL High 70-99 [facility] Comment on above: Performed By: #### B MP #### Lab [facility] [place] [address] Business Analytics Manager: German Nguyen DO Potassium [Moles/Vol] 4.5 mmol/L Normal 3.7-5.3 [facility] Comment on above: Performed By: #### B MP #### Lab [facility] [place] [address] Business Analytics Manager: German Nguyen DO Sodium [Moles/Vol] 143 mmol/L Normal 135-144 [facility] Comment on above: Performed By: #### B MP #### Lab [facility] [place] [address] Business Analytics Manager: German Nguyen DO Urea nitrogen [Mass/Vol] 15 mg/dL Normal 6-20 [facility] Comment on above: Performed By: #### B MP #### Lab [facility] [place] [address] Business Analytics Manager: Fanelly, German, DO Comp Metabolic Profon 2022 Albumin [Mass/Vol] 4.0 g/dL Normal 3.5-5.2 [facility] Comment on above: Performed By: #### C DP, LIPRF, CP, PSAS #### [address] [address] Business Analytics Manager: Sahil Tanner MD Albumin/Glob Ratio 1.5 Normal 1.0-2.5 [facility] Comment on above: Performed By: #### C DP, LIPRF, CP, PSAS #### [address] [address] Business Analytics Manager: Sahil Tanner MD Alkaline Phos 61 U/L Normal 40-129 [facility] Comment on above: Performed By: #### C DP, LIPRF, CP, PSAS #### [address] [address] Business Analytics Manager: Sahil Tanner MD ALT [Catalytic activity/Vol] 40 U/L Normal 5-41 [facility] Comment on above: Performed By: #### C DP, LIPRF, CP, PSAS #### [address] [address] Business Analytics Manager: Sahil Tanner MD Anion gap [Moles/Vol] 19 mmol/L High 9-17 [facility] Comment on above: Result Comment: INTE RPRET RESULTS WITH CAUTION. SPECIMEN QUALITY QUESTIONED. Performed By: #### C DP, LIPRF, CP, PSAS #### [facility] [employer] [address] [place] [address] Business Analytics Manager: Sahil Tanner MD AST [Catalytic activity/Vol] 58 U/L High <40 [facility] Comment on above: Performed By: #### C DP, LIPRF, CP, PSAS #### [facility] [employer] [address] [place] [address] Business Analytics Manager: Sahil Tanner MD Bilirubin [Mass/Vol] 0.3 mg/dL Normal 0.3-1.2 [facility] Comment on above: Performed By: #### C DP, LIPRF, CP, PSAS #### [address] [address] Business Analytics Manager: Sahil Tanner MD Calcium [Mass/Vol] 9.2 mg/dL Normal 8.6-10.4 [facility] Comment on above: Performed By: #### C DP, LIPRF, CP, PSAS #### [facility] [employer] [address] [place] [address] Business Analytics Manager: Sahil Tanner MD Chloride [Moles/Vol] 104 mmol/L Normal 98-107 [facility] Comment on above: Performed By: #### C DP, LIPRF, CP, PSAS #### [facility] [employer] [address] [place] [address] Business Analytics Manager: Sahil Tanner MD CO2 [Moles/Vol] 16 mmol/L Low 20-31 [facility] Comment on above: Result Comment: INTE RPRET RESULTS WITH CAUTION. SPECIMEN QUALITY QUESTIONED. Performed By: #### C DP, LIPRF, CP, PSAS #### [facility] [employer] [address] [place] [address] Business Analytics Manager: Sahil Tanner MD Creatinine [Mass/Vol] 0.86 mg/dL Normal 0.70-1.20 [facility] Comment on above: Performed By: #### C DP, LIPRF, CP, PSAS #### [facility] [employer] [address] [place] [address] Business Analytics Manager: Sahil Tanner MD GFR/1.73 sq M.predicted among [...] #### C DP, LIPRF, CP, PSAS #### [facility] [employer] [address] [place] [address] Business Analytics Manager: Sahil Tanner MD Glucose [Mass/Vol] 62 mg/dL Low 70-99 [facility] Comment on above: Performed By: #### C DP, LIPRF, CP, PSAS #### [address] [address] Business Analytics Manager: Sahil Tanner MD Potassium [Moles/Vol] 6.1 mmol/L Critically high 3.7-5.3 [facility] Comment on above: Performed By: #### C DP, LIPRF, CP, PSAS #### [facility] [employer] [address] [place] [address] Business Analytics Manager: Sahil Tanner MD Protein [Mass/Vol] 6.7 g/dL Normal 6.4-8.3 [facility] Comment on above: Performed By: #### C DP, LIPRF, CP, PSAS #### [facility] [employer] [address] [place] [address] Business Analytics Manager: Sahil Tanner MD Sodium [Moles/Vol] 139 mmol/L Normal 135-144 [facility] Comment on above: Performed By: #### C DP, LIPRF, CP, PSAS #### [facility] [employer] [address] [place] [address] Business Analytics Manager: Sahil Tanner MD Urea nitrogen [Mass/Vol] 14 mg/dL Normal 6-20 [facility] Comment on above: Performed By: #### C DP, LIPRF, CP, PSAS #### [address] [address] Business Analytics Manager: Sahil Tanner MD Lipid Prof, Fastingon 2022 Cholesterol [Mass/Vol] 151 mg/dL Normal <200 [facility] Comment on above: Result Comment: Cholesterol Guidelines: <200 Desirable 200-240 Borderline >240 Undesirable Performed By: #### C DP, LIPRF, CP, PSAS #### [address] [address] Business Analytics Manager: Sahil Tanner MD Cholesterol in HDL [Mass/Vol] 65 mg/dL Normal >40 [facility] Comment on above: Result Comment: HDL Guidelines: <40 Undesirable 40-59 Borderline >59 Desirable Performed By: #### C DP, LIPRF, CP, PSAS #### [address] [address] Business Analytics Manager: Sahil Tanner MD Cholesterol in LDL [Mass/Vol] 76 mg/dL Normal 0-130 [facility] Comment on above: Result Comment: LDL Guidelines: <100 Desirable 100-129 Near to/above Desirable 130-159 Borderline >159 Undesirable Direct (measured) LDL and calculated LDL are not interchangeable tests. Performed By: #### C DP, LIPRF, CP, PSAS #### [address] [address] Business Analytics Manager: Sahil Tanner MD Cholesterol.total/Ch olesterol in HDL [Mass ratio] 2.3 {ratio} Normal <5 [facility] Comment on above: Performed By: #### C DP, LIPRF, CP, PSAS #### [facility] [employer] [address] [place] [address] Business Analytics Manager: Sahil Tanner MD Triglyceride,Fasting 51 mg/dL Normal <150 [facility] Comment on above: Result Comment: Triglyceride Guidelines: <150 Desirable 150-199 Borderline 200-499 High >499 Very high Based on AHA Guidelines for fasting triglyceride, August 2012. Performed By: #### C DP, LIPRF, CP, PSAS #### [employer] [address] [place] [address] Business Analytics Manager: Sahil Tanner MD PSA, Screeningon 03-28-2023 Prostatic Spec. Ag 0.25 ng/mL Normal <4.1 [facility] Comment on above: Result Comment: The Jb ECLIA assay is used. Results obtained with different assay methods cannot be used interchangeably. Performed By: #### C DP, LIPRF, CP, PSAS #### [facility] [address] [place], [place] [id number] Business Analytics Manager: Sahil Tanner MD CBC with Auto Differentialon 03-26-2023 Absolute Eos # 0.08 [facility] Absolute Immature Granulocyte [facility] Absolute Lymph # 1.17 [facility] Absolute Barry # 0.52 [facility] RS [facility] Basophils (Bld) [#/Vol] 0.03 10*3/uL [facility] Basophils/100 WBC (Bld) 1 % 0 - 2 % [facility] Eosinophils/100 WBC (Bld) 2 % 1 - 4 % [facility] Hematocrit (Bld) [Volume fraction] 41.2 % 40.7 - 50.3 % [facility] Hemoglobin (Bld) [Mass/Vol] 13.2 g/dL 13.0 - 17.0 g/dL [facility] Immature granulocytes/100 WBC (Bld) 0 % 0 [facility] Interpretation and review of laboratory results Abnormal [facility] Lymphocytes/100 WBC (Bld) 23 % Low 24 - 43 % [facility] MCH (RBC) [Entitic mass] 26.6 pg 25.2 - 33.5 pg [facility] MCHC (RBC) [Mass/Vol] 32.0 g/dL 28.4 - 34.8 g/dL [facility] MCV (RBC) [Entitic vol] 82.9 fL 82.6 - 102.9 fL [facility] Monocytes/100 WBC (Bld) 10 % 3 - 12 % [facility] NRBC Automated 0.0 0.0 per 100 WBC [facility] Platelet distribution width (Bld) [Ratio] 14.9 % High 11.8 - 14.4 % [facility] Platelet mean volume (Bld) [Entitic vol] 9.9 fL 8.1 - 13.5 fL [facility] Platelets (Bld) [#/Vol] 317 10*3/uL [facility] RBC (Bld) [#/Vol] 4.97 10*6/uL 4.21 - 5.7 7 m/uL [facility] RBC (Bld) [#/Vol] ANISOCYTOSIS PRESENT [facility] Segmented neutrophils/100 WBC (Bld) 64 % 36 - 65 % [facility] Segs Absolute 3.20 [facility] WBC (Bld) [#/Vol] 5.0 10*3/uL [facility] CBC with Diffon 03-26-2023 Abs. Basophil 0.03 k/uL Normal 0.00-0.20 [facility] Comment on above: Performed By: #### C DP, LIPRF, CP, PSAS #### [facility] [employer] [address] [place] [address] Business Analytics Manager: Sahil Tanner MD Abs.Imm.Granulocyte <0.03 Normal 0.00-0.30 [facility] Comment on above: Performed By: #### C DP, LIPRF, CP, PSAS #### [facility] [address] [place] [address] Business Analytics Manager: Sahil Tanner MD Abs.Neutrophil (Seg) 3.20 k/uL Normal 1.50-8.10 [facility] Comment on above: Performed By: #### C DP, LIPRF, CP, PSAS #### [facility] [address] [place] [address] Business Analytics Manager: Sahil Tanner MD Basophils/100 WBC (Bld) 1 % Normal 0-2 [facility] Comment on above: Performed By: #### C DP, LIPRF, CP, PSAS #### [address] [address] Business Analytics Manager: Sahil Tanner MD Eosinophils (Bld) [#/Vol] 0.08 10*3/uL Normal 0.00-0.44 [facility] Comment on above: Performed By: #### C DP, LIPRF, CP, PSAS #### [place] [address] Business Analytics Manager: Sahil Tanner MD Eosinophils/100 WBC (Bld) 2 % Normal 1-4 [facility] Comment on above: Performed By: #### C DP, LIPRF, CP, PSAS #### [place] [address] Business Analytics Manager: Sahil Tanner MD Erythrocyte distribution width (RBC) [Ratio] 14.9 % High 11.8-14.4 [facility] Comment on above: Performed By: #### C DP, LIPRF, CP, PSAS #### [place] [address] Business Analytics Manager: Sahil Tanner MD Hematocrit (Bld) [Volume fraction] 41.2 % Normal 40.7-50.3 [facility] Comment on above: Performed By: #### C DP, LIPRF, CP, PSAS #### [place] [address] Business Analytics Manager: Sahil Tanner MD Hemoglobin (Bld) [Mass/Vol] 13.2 g/dL Normal 13.0-17.0 [facility] Comment on above: Performed By: #### C DP, LIPRF, CP, PSAS #### [address] [address] Business Analytics Manager: Sahil Tanner MD Immature granulocytes/100 WBC (Bld) 0 % Normal 0 [facility] Comment on above: Performed By: #### C DP, LIPRF, CP, PSAS #### [address] [address] Business Analytics Manager: Sahil Tanner MD Lymphocytes (Bld) [#/Vol] 1.17 10*3/uL Normal 1.10-3.70 [facility] Comment on above: Performed By: #### C DP, LIPRF, CP, PSAS #### [address] [address] Business Analytics Manager: Sahil Tanner MD Lymphocytes/100 WBC (Bld) 23 % Low 24-43 [facility] Comment on above: Performed By: #### C DP, LIPRF, CP, PSAS #### [place] [address] Business Analytics Manager: Sahil Tanner MD MCH (RBC) [Entitic mass] 26.6 pg Normal 25.2-33.5 [facility] Comment on above: Performed By: #### C DP, LIPRF, CP, PSAS #### [address] [address] Business Analytics Manager: Sahil Tanner MD MCHC (RBC) [Mass/Vol] 32.0 g/dL Normal 28.4-34.8 [facility] Comment on above: Performed By: #### C DP, LIPRF, CP, PSAS #### [address] [address] Business Analytics Manager: Sahil Tanner MD MCV (RBC) [Entitic vol] 82.9 fL Normal 82.6-102.9 [facility] Comment on above: Performed By: #### C DP, LIPRF, CP, PSAS #### [address] [address] Business Analytics Manager: Sahil Tanner MD Monocytes (Bld) [#/Vol] 0.52 10*3/uL Normal 0.10-1.20 [facility] Comment on above: Performed By: #### C DP, LIPRF, CP, PSAS #### [address] [address] Business Analytics Manager: Sahil Tanner MD Monocytes/100 WBC (Bld) 10 % Normal 3-12 [facility] Comment on above: Performed By: #### C DP, LIPRF, CP, PSAS #### [address] [address] Business Analytics Manager: Sahil Tanner MD Neutrophil (Seg) 64 % Normal 36-65 [facility] Comment on above: Performed By: #### C DP, LIPRF, CP, PSAS #### [address] [address] Business Analytics Manager: Sahil Tanner MD NRBC Automated 0.0 per 100 WBC Normal 0.0 [facility] Comment on above: Performed By: #### C DP, LIPRF, CP, PSAS #### [address] [address] Business Analytics Manager: Sahil Tanner MD Platelet mean volume (Bld) [Entitic vol] 9.9 fL Normal 8.1-13.5 [facility] Comment on above: Performed By: #### C DP, LIPRF, CP, PSAS #### [address] [address] Business Analytics Manager: Sahil Tanner MD Platelets (Bld) [#/Vol] 317 10*3/uL Normal 138-453 [facility] Comment on above: Performed By: #### C DP, LIPRF, CP, PSAS #### [address] [address] Business Analytics Manager: Sahil Tanner MD RBC (Bld) [#/Vol] 4.97 10*6/uL Normal 4.21-5.77 [facility] Comment on above: Performed By: #### C DP, HORACIO AGUILERA, PSAS #### [facility] [employer] [address] [place] [address] Business Analytics Manager: Sahil Tanner MD RBC morphology finding Nom (Bld) ANISOCYTOSIS PRESENT Normal [facility] Comment on above: Performed By: #### C DP, LIPRF, CP, PSAS #### [facility] [employer] [facility] [place] [address] Business Analytics Manager: Sahil Tanner MD WBC (Bld) [#/Vol] 5.0 10*3/uL Normal 3.5-11.3 [facility] Comment on above: Performed By: #### C WILLY MOREIRA CP, PSAS #### [address] [address] Business Analytics Manager: Sahil Tanner MD MRI BRAIN W WO CONTRASTon MRI BRAIN W WO CONTRAST EXAMINATION: MRI OF THE BRAIN WITHOUT AND WITH CONTRAST 08/31/2022 4:17 pm TECHNIQUE: Multiplanar multisequence MRI of the head/brain was performed without and with the administration of intravenous contrast. 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 No acute abnormality. [facility] CONSOLIDATED EXAMINATION: MRI OF THE BRAIN WITHOUT AND WITH CONTRAST 08/31/2022 4:17 pm TECHNIQUE: Multiplanar multisequence MRI of the head/brain was performed without and with the administration of intravenous contrast. COMPARISON: CT head 02/28/2022 HISTORY: ORDERING SYSTEM PROVIDED HISTORY: SAH (subarachnoid hemorrhage) ([facility]) TECHNOLOGIST PROVIDED HISTORY: STAT Creatinine as needed:->Yes intracranial bleed and SAH wo known etiology What is the sedation requirement?->None Reason for Exam: intracranial bleed and SAH wo known etiology, SAH (subarachnoid hemorrhage) ([facility]) Additional signs and symptoms: hx [...] tissues demonstrate no acute abnormality. [facility] CONSOLID[facility] Des Iglesias MD - 09/01/2022 EXAMINATION: MRI OF THE BRAIN WITHOUT AND WITH CONTRAST 08/31/2022 4:17 pm TECHNIQUE: Multiplanar multisequence MRI of the head/brain was performed without and with the administration of intravenous contrast. COMPARISON: CT head 02/28/2022 HISTORY: ORDERING SYSTEM PROVIDED HISTORY: SAH (subarachnoid hemorrhage) ([facility]) TECHNOLOGIST PROVIDED HISTORY: STAT Creatinine as needed:->Yes intracranial bleed and SAH wo known etiology What is the sedation requirement?->None Reason for Exam: intracranial bleed and SAH wo known etiology, SAH (subarachnoid hemorrhage) ([facility]) Additional signs and symptoms: hx [...] sequela of prior infarct. No acute abnormality. [employer] Work Phone: MRI BRAIN W WO CONTRASTOrder ed By: Des Iglesias on 09-01-2022 [employer] ([employer]) Phone: MRI CERVICAL SPINE WO CONTRA STon 09-01-2022 MRI CERVICAL SPINE WO CONTRAST EXAMINATION: [...] Des Iglesias MD 09/01/22 Final result Normal [facility] 1. Multilevel degenerative disease and facet arthropathy. 2. Spinal canal stenoses, moderate at C6-7 and mild at C4-5 and C5-6. 3. Multilevel neural foraminal as detailed above and greatest involving the right C6, bilateral C7, and right C8 neural foramina where it is severe. [facility] RIS CONSOLIDATED EXAMINATION: MRI OF [...] and facet hypertrophy. No spinal canal stenosis. [facility] R[facility] CONSOLIDATED Des Iglesias MD [...] C8 neural foramina where it is severe. [employer] Work Phone: MRI CERVICAL SPINE WO CONTRA STOrdered By: Des Iglesias on 09-01-2022 [employer] Work Phone: Creatinine W/GFR Point of Ca reon 08-31-2022 Creatinine [Mass/Vol] 0.81 mg/dL 0.51 - 1.19 mg/dL [employer] eGFR, POC mL/min/1.73m2 [employer] Comment on above: Effective Aug 27, 2022 [...] GFR Non- >60 60 - PINF mL/min [employer] GFR/1.73 sq M.predicted MDRD (S/P/Bld) [Vol rate/Area] mL/min 60 - PINF mL/min [employer] [facility] [employer] MRI BRAIN W WO CONTRASTon Radiology Study observation (narrative) [employer] Work Phone: MRI CERVICAL SPINE WO CONTRA STon 08-31-2022 Radiology Study observation (narrative) [employer] Work Phone: FLUORO FOR SURGICAL PROCEDUR ESon 07-19-2022 Radiology exam is complete. No Radiologist dictation. Please follow up with ordering provider. PN RIS CONSOLIDATED APTTon 07-05-2022 aPTT Coag (Bld) [Time] 25.5 s [employer] Comment on above: IV Heparin Therapy Range: 48.6-77.8 BUN & Creatinineon Creatinine [Mass/Vol] 0.78 mg/dL 0.7 - 1.2 mg/dL [employer] GFR >60 60 - PI NF mL/min [employer] GFR Non- >60 60 - PINF mL/min [employer] GFR/1.73 sq M.predicted MDRD (S/P/Bld) [Vol rate/Area] [employer] Comment on above: Average GFR for 50-5 9 years old: 93 mL/min/1.73sq m Chronic Kidney Disease: <60 mL/min/1.73sq m Kidney failure: <15 mL/min/1.73sq m eGFR calculated using average adult body mass. Additional eGFR calculator available at: http://www.[employer].com/multiple_crcl_2012.htm Urea nitrogen (BldV) [Mass/Vol] 17 mg/dL 6 - 20 mg/dL [employer] CBCon 07-05-2022 Hematocrit (Bld) [Volume fraction] 42.8 % 40.7 - 50.3 % [employer] Hemoglobin (Bld) [Mass/Vol] 13.6 g/dL 13 - 17 g/dL [employer] Interpretation and review of laboratory results Abnormal [employer] MCH (RBC) [Entitic mass] 26.8 pg 25.2 - 33.5 pg [facility] MCHC (RBC) [Mass/Vol] 31.8 g/dL 28.4 - 34.8 g/dL [facility] MCV (RBC) [Entitic vol] 84.4 fL 82.6 - 102.9 fL [facility] NRBC Automated 0.0 0.0 per 100 WBC [facility] Platelet distribution width (Bld) [Ratio] 15.2 % High 11.8 - 14.4 % [facility] Platelet mean volume (Bld) [Entitic vol] 9.8 fL 8.1 - 13.5 fL [facility] Platelets (Bld) [#/Vol] 318 10*3/uL [facility] RBC (Bld) [#/Vol] 5.07 10*6/uL 4.21 - 5.7 7 m/uL [facility] WBC (Bld) [#/Vol] 5.9 10*3/uL [facility] [employer] [facility] EKG 12 LeadOrdered By: Lázaro Alba on 07-05-2022 Atrial Rate [address] [facility] [employer] Work Phone: P [place] 68 degrees [facility] Work Phone: P-R Interval 162 ms [facility] Work Phone: Q-T Interval 446 ms [facility] Work Phone: QRS Duration 104 ms [facility] Work Phone: QTc Calculation (Bazett) 418 ms [facility] Work Phone: R [place] -[address] [facility] [employer] Work Phone: T [place] 6 degrees [facility] Work Phone: Ventricular Rate 53 BPM [facility] [employer] Work Phone: [facility] Work Phone: EKG 12 Leadon 07-05-2022 Sinus bradycardia Right superior axis deviation St T abnormalities Inferior leads Abnormal ECG No previous ECGs available [facility] Lázaro Jiménez MD - 07/05/2022 Sinus bradycardia Right superior axis deviation St T abnormalities Inferior leads Abnormal ECG No previous ECGs available [facility] Work Phone: Electrolyte Panelon 07-05-20 Anion gap [Moles/Vol] 8 mmol/L Low 9 - 17 mmol/L [facility] Chloride [Moles/Vol] 103 mmol/L 98 - 10 7 mmol/L [facility] CO2 [Moles/Vol] 24 mmol/L 20 - 31 mmol/L [facility] Potassium [Moles/Vol] 4.2 mmol/L 3.7 - 5.3 mmol/L [facility] Sodium [Moles/Vol] 135 mmol/L 135 - 144 mmol/L [facility] Glucose, Randomon 07-05-2022 Glucose [Mass/Vol] 100 mg/dL High 70 - 99 mg/dL [facility] No Panel Informationon 07-05 Interpretation and review of laboratory results Abnormal [facility] Protime-INRon 07-05-2022 INR Coag (Bld) [Relative time] 1.0 {INR} [facility] Comment on above: Therapeutic Range: Moderate Anticoagulant Intensity: INR = 2.0-3.0 High Anticoagulant Intensity: INR = 2.5-3.5 PT Coag (PPP) [Time] 10.5 s [facility] TYPE AND SCREENon 07-05-2022 ABO/Rh Positive [facility] Arm Band Number [id number] [facility] Expiration Date 07/22/2022,5533 [facility] CTA HEAD W CONTRASTOrdered B y: Carolyn Joseph on 09-06-2021 1. No acute intracranial abnormality. 2. No acute abnormality or flow-limiting stenosis of the major arteries of the head. [facility] Work Phone: EXAMINATION: CTA OF THE HEAD [...] ORDERING SYSTEM PROVIDED HISTORY: SAH (subarachnoid hemorrhage) ([facility]) TECHNOLOGIST PROVIDED HISTORY: spont SAH [...] venous sinus thrombosis on this non-dedicated study. [employer] Work Phone: Mac, [facility] Incoming Radiant Results From [employer] - 09/06/2021 9:54 AM EDT EXAMINATION: CTA [...] ORDERING SYSTEM PROVIDED HISTORY: SAH (subarachnoid hemorrhage) ([facility]) TECHNOLOGIST PROVIDED HISTORY: spont SAH [...] of the major arteries of the head. [employer] Work Phone: [employer] Phone: Hep C Abon 09-02-2021 Hep C [...] HCV, PSAS, HIVCMB, LIPRF, CP, CDP #### [facility] [place] [address] Business Analytics Manager: Sahil Tanner MD PSA, Screeningon 09-02-2021 Prostatic Spec. Ag 0.24 ug/L Normal <4.1 [facility] Comment on above: Result Comment: The Jb ECLIA assay is used. Results obtained with different assay methods cannot be used interchangeably. Performed By: #### A HCV, PSAS, HIVCMB, LIPRF, CP, CDP #### [place] [address] Business Analytics Manager: Sahil Tanner MD CBC with Diffon 09-01-2021 Abs. Basophil <0.03 Normal 0.00-0.20 [facility] Comment on above: Performed By: #### A HCV, PSAS, HIVCMB, LIPRF, CP, CDP #### [place] [address] Business Analytics Manager: Sahil Tanner MD Abs.Imm.Granulocyte <0.03 Normal 0.00-0.30 [facility] Comment on above: Performed By: #### A HCV, PSAS, HIVCMB, LIPRF, CP, CDP #### [place] [address] Business Analytics Manager: Sahil Tanner MD Abs.Neutrophil (Seg) 3.71 k/uL Normal 1.50-8.10 [facility] Comment on above: Performed By: #### A HCV, PSAS, HIVCMB, LIPRF, CP, CDP #### [place] [address] Business Analytics Manager: Sahil Tanner MD Basophils/100 WBC (Bld) 0 % Normal 0-2 [facility] Comment on above: Performed By: #### A HCV, PSAS, HIVCMB, LIPRF, CP, CDP #### [place] [address] Business Analytics Manager: Sahil Tanner MD Eosinophils (Bld) [#/Vol] 0.06 10*3/uL Normal 0.00-0.44 [facility] Comment on above: Performed By: #### A HCV, PSAS, HIVCMB, LIPRF, CP, CDP #### [address] [address] Business Analytics Manager: Sahil Tanner MD Eosinophils/100 WBC (Bld) 1 % Normal 1-4 [facility] Comment on above: Performed By: #### A HCV, PSAS, HIVCMB, LIPRF, CP, CDP #### [address] [address] Business Analytics Manager: Sahil Tanner MD Erythrocyte distribution width (RBC) [Ratio] 13.6 % Normal 11.8-14.4 [facility] Comment on above: Performed By: #### A HCV, PSAS, HIVCMB, LIPRF, CP, CDP #### [address] [address] Business Analytics Manager: Sahil Tanner MD Hematocrit (Bld) [Volume fraction] 45.1 % Normal 40.7-50.3 [facility] Comment on above: Performed By: #### A HCV, PSAS, HIVCMB, LIPRF, CP, CDP #### [address] [address] Business Analytics Manager: Sahil Tanner MD Hemoglobin (Bld) [Mass/Vol] 14.1 g/dL Normal 13.0-17.0 [facility] Comment on above: Performed By: #### A HCV, PSAS, HIVCMB, LIPRF, CP, CDP #### [address] [address] Business Analytics Manager: Sahil Tanner MD Immature granulocytes/100 WBC (Bld) 0 % Normal 0 [facility] Comment on above: Performed By: #### A HCV, PSAS, HIVCMB, LIPRF, CP, CDP #### [address] [address] Business Analytics Manager: Sahil Tanner MD Lymphocytes (Bld) [#/Vol] 0.97 10*3/uL Low 1.10-3.70 [facility] Comment on above: Performed By: #### A HCV, PSAS, HIVCMB, LIPRF, CP, CDP #### [address] [address] Business Analytics Manager: Sahil Tanner MD Lymphocytes/100 WBC (Bld) 18 % Low 24-43 [facility] Comment on above: Performed By: #### A HCV, PSAS, HIVCMB, LIPRF, CP, CDP #### [address] [address] Business Analytics Manager: Sahil Tanner MD MCH (RBC) [Entitic mass] 27.1 pg Normal 25.2-33.5 [facility] Comment on above: Performed By: #### A HCV, PSAS, HIVCMB, LIPRF, CP, CDP #### [address] [address] Business Analytics Manager: Sahil Tanner MD MCHC (RBC) [Mass/Vol] 31.3 g/dL Normal 28.4-34.8 [facility] Comment on above: Performed By: #### A HCV, PSAS, HIVCMB, LIPRF, CP, CDP #### [address] [address] Business Analytics Manager: Sahil Tanner MD MCV (RBC) [Entitic vol] 86.6 fL Normal 82.6-102.9 [facility] Comment on above: Performed By: #### A HCV, PSAS, HIVCMB, LIPRF, CP, CDP #### [address] [address] Business Analytics Manager: Sahil Tanner MD Monocytes (Bld) [#/Vol] 0.51 10*3/uL Normal 0.10-1.20 [facility] Comment on above: Performed By: #### A HCV, PSAS, HIVCMB, LIPRF, CP, CDP #### [address] [address] Business Analytics Manager: Sahil Tanner MD Monocytes/100 WBC (Bld) 10 % Normal 3-12 [facility] Comment on above: Performed By: #### A HCV, PSAS, HIVCMB, LIPRF, CP, CDP #### [address] [address] Business Analytics Manager: Sahil Tanner MD Neutrophil (Seg) 70 % High 36-65 [facility] Comment on above: Performed By: #### A HCV, PSAS, HIVCMB, LIPRF, CP, CDP #### [address] [address] Business Analytics Manager: Sahil Tanner MD NRBC Automated 0.0 per 100 WBC Normal 0.0 [facility] Comment on above: Performed By: #### A HCV, PSAS, HIVCMB, LIPRF, CP, CDP #### [address] [address] Business Analytics Manager: Sahil Tanner MD Platelet mean volume (Bld) [Entitic vol] 10.6 fL Normal 8.1-13.5 [facility] Comment on above: Performed By: #### A HCV, PSAS, HIVCMB, LIPRF, CP, CDP #### [address] [address] Business Analytics Manager: Sahil Tanner MD Platelets (Bld) [#/Vol] 305 10*3/uL Normal 138-453 [facility] Comment on above: Performed By: #### A HCV, PSAS, HIVCMB, LIPRF, CP, CDP #### [address] [address] Business Analytics Manager: Sahil Tanner MD RBC (Bld) [#/Vol] 5.21 10*6/uL Normal 4.21-5.77 [facility] Comment on above: Performed By: #### A HCV, PSAS, HIVCMB, LIPRF, CP, CDP #### [facility] [address] [place] [address] Business Analytics Manager: Sahil Tanner MD WBC (Bld) [#/Vol] 5.3 10*3/uL Normal 3.5-11.3 [facility] Comment on above: Performed By: #### A HCV, PSAS, HIVCMB, LIPRF, CP, CDP #### [address] [address] Business Analytics Manager: Sahil Tanner MD Auto Diff Performed NOT REPORTED Normal [facility] Comment on above: Performed By: #### A HCV, PSAS, HIVCMB, LIPRF, CP, CDP #### [address] [address] Business Analytics Manager: Sahil Tanner MD Platelet Estimate NOT REPORTED Normal [facility] Comment on above: Performed By: #### A HCV, PSAS, HIVCMB, LIPRF, CP, CDP #### [address] [address] Business Analytics Manager: Sahil Tanner MD RBC morphology finding Nom (Bld) NOT REPORTED Normal [facility] Comment on above: Performed By: #### A HCV, PSAS, HIVCMB, LIPRF, CP, CDP #### [address] [address] Business Analytics Manager: Sahil Tanner MD WBC Morphology NOT REPORTED Normal [facility] Comment on above: Performed By: #### A HCV, PSAS, HIVCMB, LIPRF, CP, CDP #### [address] [address] Business Analytics Manager: Sahil Tanner MD Comp Metabolic Profon 2020 (cont.) Normal [facility] Comment on above: Result Comment: Aver age GFR for 50-59 years old: 93 mL/min/1.73sq m Chronic Kidney Disease: <60 mL/min/1.73sq m Kidney failure: <15 mL/min/1.73sq m eGFR calculated using average adult body mass. Additional eGFR calculator available at: http://www.[employer]/multiple_crcl_2012.htm Performed By: #### A HCV, PSAS, HIVCMB, LIPRF, CP, CDP #### [facility] [employer] [address] [place] [address] Business Analytics Manager: Sahil Tanner MD Albumin [Mass/Vol] 4.7 g/dL Normal 3.5-5.2 [facility] Comment on above: Performed By: #### A HCV, PSAS, HIVCMB, LIPRF, CP, CDP #### [address] [address] Business Analytics Manager: Sahil Tanner MD Albumin/Glob Ratio 2.0 Normal 1.0-2.5 [facility] Comment on above: Performed By: #### A HCV, PSAS, HIVCMB, LIPRF, CP, CDP #### [facility] [employer] [address] [place] [address] Business Analytics Manager: Sahil Tanner MD Alkaline Phos 73 U/L Normal 40-129 [facility] Comment on above: Performed By: #### A HCV, PSAS, HIVCMB, LIPRF, CP, CDP #### [facility] [employer] [address] [place] [address] Business Analytics Manager: Sahil Tanner MD ALT [Catalytic activity/Vol] 35 U/L Normal 5-41 [facility] Comment on above: Performed By: #### A HCV, PSAS, HIVCMB, LIPRF, CP, CDP #### [facility] [employer] [address] [place] [address] Business Analytics Manager: Sahil Tanner MD Anion gap [Moles/Vol] 11 mmol/L Normal 9-17 [facility] Comment on above: Performed By: #### A HCV, PSAS, HIVCMB, LIPRF, CP, CDP #### [address] [address] Business Analytics Manager: Sahil Tanner MD AST [Catalytic activity/Vol] 43 U/L High <40 [facility] Comment on above: Performed By: #### A HCV, PSAS, HIVCMB, LIPRF, CP, CDP #### [address] [address] Business Analytics Manager: Sahil Tanner MD Bilirubin [Mass/Vol] 0.19 mg/dL Low 0.3-1.2 [facility] Comment on above: Performed By: #### A HCV, PSAS, HIVCMB, LIPRF, CP, CDP #### [address] [address] Business Analytics Manager: Sahil Tanner MD Calcium [Mass/Vol] 9.4 mg/dL Normal 8.6-10.4 [facility] Comment on above: Performed By: #### A HCV, PSAS, HIVCMB, LIPRF, CP, CDP #### [address] [address] Business Analytics Manager: Sahil Tanner MD Chloride [Moles/Vol] 105 mmol/L Normal 98-107 [facility] Comment on above: Performed By: #### A HCV, PSAS, HIVCMB, LIPRF, CP, CDP #### [address] [address] Business Analytics Manager: Sahil Tanner MD CO2 [Moles/Vol] 24 mmol/L Normal 20-31 [facility] Comment on above: Performed By: #### A HCV, PSAS, HIVCMB, LIPRF, CP, CDP #### [address] [address] Business Analytics Manager: Sahil Tanner MD Creatinine [Mass/Vol] 0.85 mg/dL Normal 0.70-1.20 [facility] Comment on above: Performed By: #### A HCV, PSAS, HIVCMB, LIPRF, CP, CDP #### [facility] [address] [place] [address] Business Analytics Manager: Sahil Tanner MD GFR, Amer >60 Normal >60 [facility] Comment on above: Performed By: #### A HCV, PSAS, HIVCMB, LIPRF, CP, CDP #### [address] [address] Business Analytics Manager: Sahil Tanner MD GFR,non Amer >60 Normal >60 [facility] Comment on above: Performed By: #### A HCV, PSAS, HIVCMB, LIPRF, CP, CDP #### [address] [address] Business Analytics Manager: Sahil Tanner MD Glucose [Mass/Vol] 103 mg/dL High 70-99 [facility] Comment on above: Performed By: #### A HCV, PSAS, HIVCMB, LIPRF, CP, CDP #### [address] [address] Business Analytics Manager: Sahil Tanner MD Potassium [Moles/Vol] 5.2 mmol/L Normal 3.7-5.3 [facility] Comment on above: Performed By: #### A HCV, PSAS, HIVCMB, LIPRF, CP, CDP #### [address] [address] Business Analytics Manager: Sahil Tanner MD Protein [Mass/Vol] 7.0 g/dL Normal 6.4-8.3 [facility] Comment on above: Performed By: #### A HCV, PSAS, HIVCMB, LIPRF, CP, CDP #### [facility] [place] [address] Business Analytics Manager: Sahil Tanner MD Sodium [Moles/Vol] 140 mmol/L Normal 135-144 [facility] Comment on above: Performed By: #### A HCV, PSAS, HIVCMB, LIPRF, CP, CDP #### [facility] [address] [place] [phone] Business Analytics Manager: Sahil Tanner MD Urea nitrogen [Mass/Vol] 15 mg/dL Normal 6-20 [facility] Comment on above: Performed By: #### A HCV, PSAS, HIVCMB, LIPRF, CP, CDP #### [facility] [address] [place] [id number] Business Analytics Manager: Sahil Tanner MD BUN/CRE Ratio NOT REPORTED Normal -20 [facility] Comment on above: Performed By: #### A HCV, PSAS, HIVCMB, LIPRF, CP, CDP #### [facility] [address] [place] [phone] Business Analytics Manager: Sahil Tanner MD Staging: NOT REPORTED Normal [facility] Comment on above: Performed By: #### A HCV, PSAS, HIVCMB, LIPRF, CP, CDP #### [address] [address] Business Analytics Manager: Sahil Tanner MD HIV Ag/Abon 09-01-2021 HIV Ag/Ab Non-Reactive Normal NR [facility] Comment on above: Result Comment: No l aboratory evidence of HIV infection. If acute HIV infection is suspected, consider testing for HIV-1 RNA. Performed By: #### A HCV, PSAS, HIVCMB, LIPRF, CP, CDP #### [facility] [address] [place] [phone] Business Analytics Manager: Sahil Tanner MD Lipid Prof, Fastingon 2020 Cholesterol [Mass/Vol] 158 mg/dL Normal <200 [facility] Comment on above: Result Comment: Cholesterol Guidelines: <200 Desirable 200-240 Borderline >240 Undesirable Performed By: #### A HCV, PSAS, HIVCMB, LIPRF, CP, CDP #### [employer] [address] [place] [address] [phone] Business Analytics Manager: Sahil Tanner MD Cholesterol in HDL [Mass/Vol] 66 mg/dL Normal >40 [facility] Comment on above: Result Comment: HDL Guidelines: <40 Undesirable 40-59 Borderline >59 Desirable Performed By: #### A HCV, PSAS, HIVCMB, LIPRF, CP, CDP #### [facility] [employer] [address] [place] [phone] Business Analytics Manager: Sahil Tanner MD Cholesterol in LDL [Mass/Vol] 82 mg/dL Normal 0-130 [facility] Comment on above: Result Comment: LDL Guidelines: <100 Desirable 100-129 Near to/above Desirable 130-159 Borderline >159 Undesirable Direct (measured) LDL and calculated LDL are not interchangeable tests. Performed By: #### A HCV, PSAS, HIVCMB, LIPRF, CP, CDP #### [employer] [address] [place] [phone] Business Analytics Manager: Sahil Tanner MD Cholesterol.total/Ch olesterol in HDL [Mass ratio] 2.4 {ratio} Normal <5 [facility] Comment on above: Performed By: #### A HCV, PSAS, HIVCMB, LIPRF, CP, CDP #### [employer] [address] [place] [address] [phone] Business Analytics Manager: Sahil Tanner MD Triglyceride,Fasting 51 mg/dL Normal <150 [facility] Comment on above: Result Comment: Triglyceride Guidelines: <150 Desirable 150-199 Borderline 200-499 High >499 Very high Based on AHA Guidelines for fasting triglyceride, August 2012. Performed By: #### A HCV, PSAS, HIVCMB, LIPRF, CP, CDP #### [employer] [address] [place] [address] Business Analytics Manager: Sahil Tanner MD Cholesterol,VLDL NOT REPORTED Normal 12-24 [facility] Comment on above: Performed By: #### A HCV, PSAS, HIVCMB, LIPRF, CP, CDP #### [facility] [employer] [address] [place], [place] [phone] Business Analytics Manager: Sahil Tanner MD CTA HEAD W CONTRASTOrdered B y: Samantha Husain on 03-08-2021 1. No acute intracranial abnormality. 2. Unremarkable CTA of the head. [employer] Phone: EXAMINATION: CTA OF THE HEAD WITH [...] ORDERING SYSTEM PROVIDED HISTORY: SAH (subarachnoid hemorrhage) ([facility]) TECHNOLOGIST PROVIDED HISTORY: Reason for [...] venous sinus thrombosis on this non-dedicated study. [employer] Phone: Mac, Mhpn Incoming Radiant Results From [employer] - 03/08/2021 10:33 AM EDT EXAMINATION: CTA [...] ORDERING SYSTEM PROVIDED HISTORY: SAH (subarachnoid hemorrhage) ([facility]) TECHNOLOGIST PROVIDED HISTORY: Reason for [...] abnormality. 2. Unremarkable CTA of the head. [employer] Work Phone: CT LUMBAR SPINE WO CONTRASTo [...] L5 and on the right at L5-S1. [employer] [facility]- [place], [place] EXAMINATION: CT OF THE LUMBAR SPINE WITHOUT [...] entering the posterior epidural space at T11-T12. [facility] [place], [place] Mac, Mhpn Incoming Radiant Results From [employer] - 12/22/2020 7:03 PM EST EXAMINATION: CT [...] L5 and on the right at L5-S1. [place], [place] BASIC METABOLIC PANELon 11-25 Anion gap [Moles/Vol] 9 mmol/L 9 - 17 mmol/L [place] Bun/Cre Ratio NOT REPORTED [place] Calcium [Mass/Vol] 8.8 mg/dL 8.6 - 10. 4 mg/dL [place] Chloride [Moles/Vol] 104 mmol/L 98 - 10 7 mmol/L [place] CO2 [Moles/Vol] 23 mmol/L 20 - 31 mmol/L [place] Creatinine [Mass/Vol] 0.83 mg/dL 0.7 - 1.2 mg/dL [place] GFR >60 >60 mL/min [place] GFR Non- >60 >60 mL/min [place] GFR/1.73 sq M predicted among non-blacks MDRD (S/P/Bld) [Vol rate/Area] [place] Comment on above: Average GFR for 50-5 9 years old: 93 mL/min/1.73sq m Chronic Kidney Disease: <60 mL/min/1.73sq m Kidney failure: <15 mL/min/1.73sq m eGFR calculated using average adult body mass. Additional eGFR calculator available at: http://www.English Helper.Greatist/multiple_crcl_2012.htm GFR/1.73 sq M predicted among non-blacks MDRD (S/P/Bld) [Vol rate/Area] NOT REPORTED [place] Glucose [Mass/Vol] 91 mg/dL 70 - 99 mg/dL [place] Potassium [Moles/Vol] 4.2 mmol/L 3.7 - 5.3 mmol/L [place] Sodium [Moles/Vol] 136 mmol/L 135 - 144 mmol/L [place] Urea nitrogen [Mass/Vol] 11 mg/dL 6 - 20 mg/dL [place] CBC WITH AUTO DIFFERENTIALon 12-13-2020 Basophils (Bld) [#/Vol] 0.03 10*3/uL [place] Basophils/100 WBC (Bld) 1 % 0 - 2 % [place] Differential Type NOT REPORTED [place] Eosinophils (Bld) [#/Vol] 0.07 10*3/uL [place] Eosinophils/100 WBC (Bld) 1 % 1 - 4 % [place] Erythrocyte distribution width (RBC) [Ratio] 13.5 % 11.8 - 14.4 % [place] Hematocrit (Bld) [Volume fraction] 42.6 % 40.7 - 50.3 % [place] Hemoglobin (Bld) [Mass/Vol] 14.2 g/dL 13 - 17 g/dL [place] Immature granulocytes (Bld) [#/Vol] 10*3/uL [place] Immature granulocytes (Bld) [#/Vol] 0 % 0 [place] Interpretation and review of laboratory results Abnormal [place] Lymphocytes (Bld) [#/Vol] 1.04 10*3/uL Low [place] Lymphocytes/100 WBC (Bld) 17 % Low 24 - 43 % [place] MCH (RBC) [Entitic mass] 27.0 pg 25.2 - 33.5 pg [place] MCHC (RBC) [Mass/Vol] 33.3 g/dL 28.4 - 34.8 g/dL [place] MCV (RBC) [Entitic vol] 81.1 fL Low 82.6 - 102.9 fL [place] Monocytes (Bld) [#/Vol] 0.71 10*3/uL [place] Monocytes/100 WBC (Bld) 12 % 3 - 12 % [place] Platelet mean volume (Bld) [Entitic vol] 9.5 fL 8.1 - 13.5 fL [place] Platelets (Bld) [#/Vol] NOT REPORTED [place] Platelets (Bld) [#/Vol] 358 10*3/uL [place] RBC (Bld) [#/Vol] 5.25 10*6/uL 4.21 - 5.7 7 m/uL [place] RBC morphology finding Nom (Bld) MICROCYTOSIS PRESENT [place] Segmented neutrophils/100 WBC (Bld) 69 % High 36 - 65 % [place] Segs Absolute 4.11 [place] WBC (Bld) [#/Vol] 6.0 10*3/uL [place] WBC (Bld) [#/Vol] 0.0 10*3/uL 0.0 per 10 0 WBC [place] WBC Morphology NOT REPORTED [place] Magnesiumon 12-13-2020 Magnesium [Mass/Vol] 1.9 mg/dL 1.6 - 2 .6 mg/dL [place] BASIC METABOLIC PANELon 11-25 Anion gap [Moles/Vol] 12 mmol/L 9 - 17 mmol/L [place] Bun/Cre Ratio NOT REPORTED [place] Calcium [Mass/Vol] 8.9 mg/dL 8.6 - 10. 4 mg/dL [place] Chloride [Moles/Vol] 102 mmol/L 98 - 10 7 mmol/L [place] CO2 [Moles/Vol] 21 mmol/L 20 - 31 mmol/L [place] Creatinine [Mass/Vol] 0.83 mg/dL 0.7 - 1.2 mg/dL [place] GFR >60 >60 mL/min [place] GFR Non- >60 >60 mL/min [place] GFR/1.73 sq M predicted among non-blacks MDRD (S/P/Bld) [Vol rate/Area] [place] Comment on above: Average GFR for 50-5 9 years old: 93 mL/min/1.73sq m Chronic Kidney Disease: <60 mL/min/1.73sq m Kidney failure: <15 mL/min/1.73sq m eGFR calculated using average adult body mass. Additional eGFR calculator available at: http://www.La Miu/multiple_crcl_2012.htm GFR/1.73 sq M predicted among non-blacks MDRD (S/P/Bld) [Vol rate/Area] NOT REPORTED [place] Glucose [Mass/Vol] 91 mg/dL 70 - 99 mg/dL [place] Potassium [Moles/Vol] 4.3 mmol/L 3.7 - 5.3 mmol/L [place] Sodium [Moles/Vol] 135 mmol/L 135 - 144 mmol/L [place] Urea nitrogen [Mass/Vol] 12 mg/dL 6 - 20 mg/dL [place] CBC WITH AUTO DIFFERENTIALon 12-12-2020 Basophils (Bld) [#/Vol] 0.04 10*3/uL [place] Basophils/100 WBC (Bld) 1 % 0 - 2 % [place] Differential Type NOT REPORTED [place] Eosinophils (Bld) [#/Vol] 0.06 10*3/uL [place] Eosinophils/100 WBC (Bld) 1 % 1 - 4 % [place] Erythrocyte distribution width (RBC) [Ratio] 13.6 % 11.8 - 14.4 % [place] Hematocrit (Bld) [Volume fraction] 44.5 % 40.7 - 50.3 % [place] Hemoglobin (Bld) [Mass/Vol] 14.5 g/dL 13 - 17 g/dL [place] Immature granulocytes (Bld) [#/Vol] 0.03 10*3/uL [place] Immature granulocytes (Bld) [#/Vol] 0 % 0 [place] Interpretation and review of laboratory results Abnormal [place] Lymphocytes (Bld) [#/Vol] 1.26 10*3/uL [place] Lymphocytes/100 WBC (Bld) 17 % Low 24 - 43 % [place] MCH (RBC) [Entitic mass] 27.2 pg 25.2 - 33.5 pg [place] MCHC (RBC) [Mass/Vol] 32.6 g/dL 28.4 - 34.8 g/dL [place] MCV (RBC) [Entitic vol] 83.3 fL 82.6 - 102.9 fL [place] Monocytes (Bld) [#/Vol] 0.76 10*3/uL [place] Monocytes/100 WBC (Bld) 10 % 3 - 12 % [place] Platelet mean volume (Bld) [Entitic vol] 9.5 fL 8.1 - 13.5 fL [place] Platelets (Bld) [#/Vol] 359 10*3/uL [place] Platelets (Bld) [#/Vol] NOT REPORTED [place] RBC (Bld) [#/Vol] 5.34 10*6/uL 4.21 - 5.7 7 m/uL [place] RBC morphology finding Nom (Bld) NOT REPORTED [place] Segmented neutrophils/100 WBC (Bld) 71 % High 36 - 65 % [place] Segs Absolute 5.22 [place] WBC (Bld) [#/Vol] 7.4 10*3/uL [place] WBC (Bld) [#/Vol] 0.0 10*3/uL 0.0 per 10 0 WBC [place] WBC Morphology NOT REPORTED [place] Magnesiumon 12-12-2020 Magnesium [Mass/Vol] 2.1 mg/dL 1.6 - 2 .6 mg/dL [place] BASIC METABOLIC PANELon 11-25 Anion gap [Moles/Vol] 11 mmol/L 9 - 17 mmol/L [place] Bun/Cre Ratio NOT REPORTED [place] Calcium [Mass/Vol] 9.2 mg/dL 8.6 - 10. 4 mg/dL [place] Chloride [Moles/Vol] 104 mmol/L 98 - 10 7 mmol/L [place] CO2 [Moles/Vol] 22 mmol/L 20 - 31 mmol/L [place] Creatinine [Mass/Vol] 0.82 mg/dL 0.7 - 1.2 mg/dL [place] GFR >60 >60 mL/min [place] GFR Non- >60 >60 mL/min [place] GFR/1.73 sq M predicted among non-blacks MDRD (S/P/Bld) [Vol rate/Area] NOT REPORTED [place] GFR/1.73 sq M predicted among non-blacks MDRD (S/P/Bld) [Vol rate/Area] [place] Comment on above: Average GFR for 50-5 9 years old: 93 mL/min/1.73sq m Chronic Kidney Disease: <60 mL/min/1.73sq m Kidney failure: <15 mL/min/1.73sq m eGFR calculated using average adult body mass. Additional eGFR calculator available at: http://www.La Miu/multiple_crcl_2011.htm Glucose [Mass/Vol] 87 mg/dL 70 - 99 mg/dL [place] Potassium [Moles/Vol] 4.2 mmol/L 3.7 - 5.3 mmol/L [place] Sodium [Moles/Vol] 137 mmol/L 135 - 144 mmol/L [place] Urea nitrogen [Mass/Vol] 12 mg/dL 6 - 20 mg/dL [place] CBC WITH AUTO DIFFERENTIALon 12-11-2020 Basophils (Bld) [#/Vol] 0.03 10*3/uL [place] Basophils/100 WBC (Bld) 1 % 0 - 2 % [place] Differential Type NOT REPORTED [place] Eosinophils (Bld) [#/Vol] 0.06 10*3/uL [place] Eosinophils/100 WBC (Bld) 1 % 1 - 4 % [place] Erythrocyte distribution width (RBC) [Ratio] 13.8 % 11.8 - 14.4 % [place] Hematocrit (Bld) [Volume fraction] 46.9 % 40.7 - 50.3 % [place] Hemoglobin (Bld) [Mass/Vol] 15.4 g/dL 13 - 17 g/dL [place] Immature granulocytes (Bld) [#/Vol] 1 % High 0 [place] Immature granulocytes (Bld) [#/Vol] 0.04 10*3/uL [place] Interpretation and review of laboratory results Abnormal [place] Lymphocytes (Bld) [#/Vol] 1.09 10*3/uL [place] Lymphocytes/100 WBC (Bld) 17 % Low 24 - 43 % [place] MCH (RBC) [Entitic mass] 26.9 pg 25.2 - 33.5 pg [place] MCHC (RBC) [Mass/Vol] 32.8 g/dL 28.4 - 34.8 g/dL [place] MCV (RBC) [Entitic vol] 81.8 fL Low 82.6 - 102.9 fL [place] Monocytes (Bld) [#/Vol] 0.58 10*3/uL [place] Monocytes/100 WBC (Bld) 9 % 3 - 12 % [place] Platelet mean volume (Bld) [Entitic vol] 9.2 fL 8.1 - 13.5 fL [place] Platelets (Bld) [#/Vol] NOT REPORTED [place] Platelets (Bld) [#/Vol] 343 10*3/uL [place] RBC (Bld) [#/Vol] 5.73 10*6/uL 4.21 - 5.7 7 m/uL [place] RBC morphology finding Nom (Bld) MICROCYTOSIS PRESENT [place] Segmented neutrophils/100 WBC (Bld) 71 % High 36 - 65 % [place] Segs Absolute 4.54 [place] WBC (Bld) [#/Vol] 0.0 10*3/uL 0.0 per 10 0 WBC [place] WBC (Bld) [#/Vol] 6.3 10*3/uL [place] WBC Morphology NOT REPORTED [place] Magnesiumon 12-11-2020 Magnesium [Mass/Vol] 1.9 mg/dL 1.6 - 2 .6 mg/dL [place] BASIC METABOLIC PANELon 11-25 Anion gap [Moles/Vol] 11 mmol/L 9 - 17 mmol/L [place] Bun/Cre Ratio NOT REPORTED [place] Calcium [Mass/Vol] 8.9 mg/dL 8.6 - 10. 4 mg/dL [place] Chloride [Moles/Vol] 101 mmol/L 98 - 10 7 mmol/L [place] CO2 [Moles/Vol] 22 mmol/L 20 - 31 mmol/L [place] Creatinine [Mass/Vol] 0.82 mg/dL 0.7 - 1.2 mg/dL [place] GFR >60 >60 mL/min [place] GFR Non- >60 >60 mL/min [place] GFR/1.73 sq M predicted among non-blacks MDRD (S/P/Bld) [Vol rate/Area] NOT REPORTED [place] GFR/1.73 sq M predicted among non-blacks MDRD (S/P/Bld) [Vol rate/Area] [place] Comment on above: Average GFR for 50-5 9 years old: 93 mL/min/1.73sq m Chronic Kidney Disease: <60 mL/min/1.73sq m Kidney failure: <15 mL/min/1.73sq m eGFR calculated using average adult body mass. Additional eGFR calculator available at: http://www.English Helper.Greatist/multiple_crcl_2012.htm Glucose [Mass/Vol] 91 mg/dL 70 - 99 mg/dL [place] Interpretation and review of laboratory results Abnormal [place] Potassium [Moles/Vol] 4.4 mmol/L 3.7 - 5.3 mmol/L [place] Sodium [Moles/Vol] 134 mmol/L Low 135 - 144 mmol/L [place] Urea nitrogen [Mass/Vol] 13 mg/dL 6 - 20 mg/dL [place] CBC WITH AUTO DIFFERENTIALon 12-10-2020 Basophils (Bld) [#/Vol] 0.03 10*3/uL [place] Basophils/100 WBC (Bld) 1 % 0 - 2 % [place] Differential Type NOT REPORTED [place] Eosinophils (Bld) [#/Vol] 0.07 10*3/uL [place] Eosinophils/100 WBC (Bld) 1 % 1 - 4 % [place] Erythrocyte distribution width (RBC) [Ratio] 13.8 % 11.8 - 14.4 % [place] Hematocrit (Bld) [Volume fraction] 44.7 % 40.7 - 50.3 % [place] Hemoglobin (Bld) [Mass/Vol] 14.6 g/dL 13 - 17 g/dL [place] Immature granulocytes (Bld) [#/Vol] 0.03 10*3/uL [place] Immature granulocytes (Bld) [#/Vol] 1 % High 0 [place] Interpretation and review of laboratory results Abnormal [place] Lymphocytes (Bld) [#/Vol] 1.13 10*3/uL [place] Lymphocytes/100 WBC (Bld) 18 % Low 24 - 43 % [place] MCH (RBC) [Entitic mass] 27.1 pg 25.2 - 33.5 pg [place] MCHC (RBC) [Mass/Vol] 32.7 g/dL 28.4 - 34.8 g/dL [place] MCV (RBC) [Entitic vol] 82.9 fL 82.6 - 102.9 fL [place] Monocytes (Bld) [#/Vol] 0.58 10*3/uL [place] Monocytes/100 WBC (Bld) 9 % 3 - 12 % [place] Platelet mean volume (Bld) [Entitic vol] 9.8 fL 8.1 - 13.5 fL [place] Platelets (Bld) [#/Vol] NOT REPORTED [place] Platelets (Bld) [#/Vol] 350 10*3/uL [place] RBC (Bld) [#/Vol] 5.39 10*6/uL 4.21 - 5.7 7 m/uL [place] RBC morphology finding Nom (Bld) NOT REPORTED [place] Segmented neutrophils/100 WBC (Bld) 70 % High 36 - 65 % [place] Segs Absolute 4.63 [place] WBC (Bld) [#/Vol] 0.0 10*3/uL 0.0 per 10 0 WBC [place] WBC (Bld) [#/Vol] 6.5 10*3/uL [place] WBC Morphology NOT REPORTED [place] Magnesiumon 12-10-2020 Magnesium [Mass/Vol] 2.0 mg/dL 1.6 - 2 .6 mg/dL [place] BASIC METABOLIC PANELon 11-25 Anion gap [Moles/Vol] 9 mmol/L 9 - 17 mmol/L [place] Bun/Cre Ratio NOT REPORTED [place] Calcium [Mass/Vol] 8.9 mg/dL 8.6 - 10. 4 mg/dL [place] Chloride [Moles/Vol] 103 mmol/L 98 - 10 7 mmol/L [place] CO2 [Moles/Vol] 26 mmol/L 20 - 31 mmol/L [place] Creatinine [Mass/Vol] 0.88 mg/dL 0.7 - 1.2 mg/dL [place] GFR >60 >60 mL/min [place] GFR Non- >60 >60 mL/min [place] GFR/1.73 sq M predicted among non-blacks MDRD (S/P/Bld) [Vol rate/Area] NOT REPORTED [place] GFR/1.73 sq M predicted among non-blacks MDRD (S/P/Bld) [Vol rate/Area] [place] Comment on above: Average GFR for 50-5 9 years old: 93 mL/min/1.73sq m Chronic Kidney Disease: <60 mL/min/1.73sq m Kidney failure: <15 mL/min/1.73sq m eGFR calculated using average adult body mass. Additional eGFR calculator available at: http://www.La Miu/multiple_crcl_2011.htm Glucose [Mass/Vol] 95 mg/dL 70 - 99 mg/dL [place] Potassium [Moles/Vol] 4.7 mmol/L 3.7 - 5.3 mmol/L [place] Sodium [Moles/Vol] 138 mmol/L 135 - 144 mmol/L [place] Urea nitrogen [Mass/Vol] 13 mg/dL 6 - 20 mg/dL [place] CBC WITH AUTO DIFFERENTIALon 12-09-2020 Basophils (Bld) [#/Vol] 10*3/uL [place] Basophils/100 WBC (Bld) 0 % 0 - 2 % [place] Differential Type NOT REPORTED [place] Eosinophils (Bld) [#/Vol] 0.04 10*3/uL [place] Eosinophils/100 WBC (Bld) 1 % 1 - 4 % [place] Erythrocyte distribution width (RBC) [Ratio] 13.9 % 11.8 - 14.4 % [place] Hematocrit (Bld) [Volume fraction] 45.5 % 40.7 - 50.3 % [place] Hemoglobin (Bld) [Mass/Vol] 15.0 g/dL 13 - 17 g/dL [place] Immature granulocytes (Bld) [#/Vol] 1 % High 0 [place] Immature granulocytes (Bld) [#/Vol] 0.03 10*3/uL [place] Interpretation and review of laboratory results Abnormal [place] Lymphocytes (Bld) [#/Vol] 0.97 10*3/uL Low [place] Lymphocytes/100 WBC (Bld) 15 % Low 24 - 43 % [place] MCH (RBC) [Entitic mass] 26.9 pg 25.2 - 33.5 pg [place] MCHC (RBC) [Mass/Vol] 33.0 g/dL 28.4 - 34.8 g/dL [place] MCV (RBC) [Entitic vol] 81.7 fL Low 82.6 - 102.9 fL [place] Monocytes (Bld) [#/Vol] 0.51 10*3/uL [place] Monocytes/100 WBC (Bld) 8 % 3 - 12 % [place] Platelet mean volume (Bld) [Entitic vol] 9.5 fL 8.1 - 13.5 fL [place] Platelets (Bld) [#/Vol] NOT REPORTED [place] Platelets (Bld) [#/Vol] 343 10*3/uL [place] RBC (Bld) [#/Vol] 5.57 10*6/uL 4.21 - 5.7 7 m/uL [place] RBC morphology finding Nom (Bld) MICROCYTOSIS PRESENT [place] Segmented neutrophils/100 WBC (Bld) 75 % High 36 - 65 % [place] Segs Absolute 4.75 [place] WBC (Bld) [#/Vol] 6.3 10*3/uL [place] WBC (Bld) [#/Vol] 0.0 10*3/uL 0.0 per 10 0 WBC [place] WBC Morphology NOT REPORTED [place] Magnesiumon 12-09-2020 Magnesium [Mass/Vol] 2.1 mg/dL 1.6 - 2 .6 mg/dL [place] VL TRANSCRANIAL DOPPLER COMP Trell 12-09-2020 [facility] Vascular Transcranial Procedure Patient Name TROUT Date of Study 12/09/2020 ANIBAL Clark Date of 1970 Gender Male Age 50 year(s) Race Room Number 0540 Height: 69 inch, 175.26 cm Corporate ID [id number] Weight: 160 pounds, 72.6 kg # Patient Acct [id number] BSA: 1.88 m^2 BMI: 23.63 kg/m^2 # MR # [id number] Utility Forester Verónica Salinas, RVT Interpreting Physician Manolo Saravia [...] of vasospasm. Mean velocities in KARTHIK and METAL NUMERICAL CONTROL PROGRAMMER are considerably lower than the most recent study 2 days prior. Signature ---- ---- ---- Electronically signed [facility] on 12/09/2020 09:17 PM ---- Findings: Right Impression: Left Impression: Right Lind[place]ard Ratio =2.19 Left [place]ard Ratio =0.81 MEAN VELOCITIES: MEAN VELOCITIES: Transtemporal Approach. Transtemporal Approach. Proximal MCA: 45.8 . Proximal MCA: 30.8 . Mid MCA: 65.8 . Mid MCA: 30.8 . Distal MCA: 45.0 . Distal MCA: 30.8 . Proximal KARTHIK: 26.2 . Proximal KARTHIK: 28.9 . Mid KARTHIK: 30.0 . Mid KARTHIK: 28.9 . METAL NUMERICAL CONTROL PROGRAMMER: 25.0 . METAL NUMERICAL CONTROL PROGRAMMER: 21.2 . T ICA: 47.0 . T ICA: 50.0 . Submandibular Approach. Submandibular Approach. D ICA: 30.0 . D ICA: 38.1 . Transorbital Approach. Transorbital Approach. Siphon: 41.2 . Siphon: 42.4 . Transforamenal Approach. Transforamental Approach. Vertebral: 25.0 . Vertebral: 28.9 . Basilar: 51.2 [facility] [place] [place] Mac, Mhpn Incoming Cardio Results From [facility] - 12/09/2020 9:[address] [facility] Vascular Transcranial Procedure Patient Name TROUT Date of Study 12/09/2020 ANIBAL Clark Date of 1970 Gender Male Age 50 year(s) Race Room Number 0540 Height: 69 inch, 175.26 cm Corporate ID [id number] Weight: 160 pounds, 72.6 kg # Patient Acct [id number] BSA: 1.88 m^2 BMI: 23.63 kg/m^2 # MR # [id number] Utility Forester Verónica Salinas RVT Interpreting Physician Manolo Saravia Referring Referring [...] of vasospasm. Mean velocities in KARTHIK and METAL NUMERICAL CONTROL PROGRAMMER are considerably lower than the most recent study 2 days prior. Signature ---- ---- ---- Electronically signed by Manolo Saravia([facility] physician) on 12/09/2020 09:17 PM ---- Findings: Right Impression: Left Impression: Right Lindegaard Ratio =2.19 Left [place]ard Ratio =0.81 MEAN VELOCITIES: MEAN VELOCITIES: Transtemporal Approach. Transtemporal Approach. Proximal MCA: 45.8 . Proximal MCA: 30.8 . Mid MCA: 65.8 . Mid MCA: 30.8 . Distal MCA: 45.0 . Distal MCA: 30.8 . Proximal KARTHIK: 26.2 . Proximal KARTHIK: 28.9 . Mid KARTHIK: 30.0 . Mid KARTHIK: 28.9 . METAL NUMERICAL CONTROL PROGRAMMER: 25.0 . METAL NUMERICAL CONTROL PROGRAMMER: 21.2 . T ICA: 47.0 . T ICA: 50.0 . Submandibular Approach. Submandibular Approach. D ICA: 30.0 . D ICA: 38.1 . Transorbital Approach. Transorbital Approach. Siphon: 41.2 . Siphon: 42.4 . Transforamenal Approach. Transforamental Approach. Vertebral: 25.0 . Vertebral: 28.9 . Basilar: 51.2 [facility] [place] BASIC METABOLIC PANELon - Anion gap [Moles/Vol] 10 mmol/L 9 - 17 mmol/L [facility] [place] Bun/Cre Ratio NOT REPORTED [facility] [place] Calcium [Mass/Vol] 8.6 mg/dL 8.6 - 10. 4 mg/dL [place] Chloride [Moles/Vol] 103 mmol/L 98 - 10 7 mmol/L [place] CO2 [Moles/Vol] 25 mmol/L 20 - 31 mmol/L [place] Creatinine [Mass/Vol] 0.77 mg/dL 0.7 - 1.2 mg/dL [place] GFR >60 >60 mL/min [place] GFR Non- >60 >60 mL/min [place] GFR/1.73 sq M predicted among non-blacks MDRD (S/P/Bld) [Vol rate/Area] [place] Comment on above: Average GFR for 50-5 9 years old: 93 mL/min/1.73sq m Chronic Kidney Disease: <60 mL/min/1.73sq m Kidney failure: <15 mL/min/1.73sq m eGFR calculated using average adult body mass. Additional eGFR calculator available at: http://[email or web address]_crcl_2012.htm GFR/1.73 sq M predicted among non-blacks MDRD (S/P/Bld) [Vol rate/Area] NOT REPORTED [place], [place] Glucose [Mass/Vol] 89 mg/dL 70 - 99 mg/dL [place] Potassium [Moles/Vol] 3.9 mmol/L 3.7 - 5.3 mmol/L [place] Sodium [Moles/Vol] 138 mmol/L 135 - 144 mmol/L [place] Urea nitrogen [Mass/Vol] 12 mg/dL 6 - 20 mg/dL [place] CBC WITH AUTO DIFFERENTIALon 12-08-2020 Basophils (Bld) [#/Vol] 10*3/uL [place] Basophils/100 WBC (Bld) 0 % 0 - 2 % [place] Differential Type NOT REPORTED [place] Eosinophils (Bld) [#/Vol] 0.05 10*3/uL [place] Eosinophils/100 WBC (Bld) 1 % 1 - 4 % [place] Erythrocyte distribution width (RBC) [Ratio] 14.1 % 11.8 - 14.4 % [place] Hematocrit (Bld) [Volume fraction] 41.6 % 40.7 - 50.3 % [place] Hemoglobin (Bld) [Mass/Vol] 13.5 g/dL 13 - 17 g/dL [place] Immature granulocytes (Bld) [#/Vol] 0.03 10*3/uL [place] Immature granulocytes (Bld) [#/Vol] 0 % 0 [place] Interpretation and review of laboratory results Abnormal [place] Lymphocytes (Bld) [#/Vol] 1.35 10*3/uL [place] Lymphocytes/100 WBC (Bld) 20 % Low 24 - 43 % [place] MCH (RBC) [Entitic mass] 27.1 pg 25.2 - 33.5 pg [place] MCHC (RBC) [Mass/Vol] 32.5 g/dL 28.4 - 34.8 g/dL [place] MCV (RBC) [Entitic vol] 83.4 fL 82.6 - 102.9 fL [place] Monocytes (Bld) [#/Vol] 0.64 10*3/uL [place] Monocytes/100 WBC (Bld) 9 % 3 - 12 % [place] Platelet mean volume (Bld) [Entitic vol] 9.6 fL 8.1 - 13.5 fL [place] Platelets (Bld) [#/Vol] NOT REPORTED [place] Platelets (Bld) [#/Vol] 312 10*3/uL [place] RBC (Bld) [#/Vol] 4.99 10*6/uL 4.21 - 5.7 7 m/uL [place] RBC morphology finding Nom (Bld) NOT REPORTED [place] Segmented neutrophils/100 WBC (Bld) 70 % High 36 - 65 % [place] Segs Absolute 4.78 [facility] [place] WBC (Bld) [#/Vol] 0.0 10*3/uL 0.0 per 10 0 WBC [place] WBC (Bld) [#/Vol] 6.9 10*3/uL [place] WBC Morphology NOT REPORTED [place] Magnesiumon 12-08-2020 Magnesium [Mass/Vol] 1.7 mg/dL 1.6 - 2 .6 mg/dL [place] VL TRANSCRANIAL DOPPLER COMP LETEon 12-07-2020 [facility] Vascular Transcranial Procedure Patient Name TROUT Date of Study 12/07/2020 ANIBAL Clark Date of 1970 Gender Male Age 50 year(s) Race Room Number 0540 Height: 69 inch, 175.26 cm Corporate ID [id number] Weight: 160 pounds, 72.6 kg # Patient Acct [id number] BSA: 1.88 m^2 BMI: 23.63 kg/m^2 # MR # [id number] Utility Forester Verónica Salinas, T Interpreting Geraldo Levin Physician Referring Referring Physician EDITH DOMINGUEZ APRN-[facility] Nurse Practitioner Additional Comments CLASSIFICATION OF VASOSPASM [...] KARTHIK: 73.9 . Mid KARTHIK: 77.8 . METAL NUMERICAL CONTROL PROGRAMMER: 26.9 . METAL NUMERICAL CONTROL PROGRAMMER: 40.8 . T ICA: 50.0 . T ICA: 57.0 . Submandibular Approach. Submandibular Approach. D ICA: 28.9 . D ICA: 50.8 . Transorbital Approach. Transorbital Approach. Siphon: 49.7 . Siphon: 32.0 . Transforamenal Approach. Transforamental Approach. Vertebral: 33.9 . Vertebral: 34.3 . Basilar: 62.4 Risk Factors Comments: subarachnoid bleed Hematocrit: 38.0 [facility] [place] Mac, Mhpn Incoming Cardio Results From [facility] - 12/07/2020 11:03 PM [facility] Vascular Transcranial Procedure Patient Name TROUT Date of Study 12/07/2020 ANIBAL Clark Date of 1970 Gender Male Age 50 year(s) Race Room Number 0540 Height: 69 inch, 175.26 cm Corporate ID [id number] Weight: 160 pounds, 72.6 kg # Patient Acct [id number] BSA: 1.88 m^2 BMI: 23.63 kg/m^2 # MR # [id number] Utility Forester Verónica Salinas RVT Interpreting Geraldo Levin Physician Referring Referring Physician EDITH DOMINGUEZ [facility] Nurse Practitioner Additional Comments CLASSIFICATION OF [...] KARTHIK: 73.9 . Mid KARTHIK: 77.8 . METAL NUMERICAL CONTROL PROGRAMMER: 26.9 . METAL NUMERICAL CONTROL PROGRAMMER: 40.8 . T ICA: 50.0 . T ICA: 57.0 . Submandibular Approach. Submandibular Approach. D ICA: 28.9 . D ICA: 50.8 . Transorbital Approach. Transorbital Approach. Siphon: 49.7 . Siphon: 32.0 . Transforamenal Approach. Transforamental Approach. Vertebral: 33.9 . Vertebral: 34.3 . Basilar: 62.4 Risk Factors Comments: subarachnoid bleed Hematocrit: 38.0 [facility] [place] ECHO Complete 2D W Doppler W Coloron 12-06-2020 Transthoracic Echocardiography Report (TTE) Patient Name TROUT Date of Study 12/06/2020 ANIBAL Clark Date of 1970 Gender Male Age 50 year(s) Race Room Number 0540 Height: 69 inch, 175.26 cm Corporate ID [id number] Weight: 160 pounds, 72.6 kg # Patient Acct [id number] BSA: 1.88 m^2 BMI: 23.63 # kg/m^2 MR # [id number] Utility [employer]ster Sharlene Mckay Interpreting Physician Davion Stanton Fellow Referring Nurse Practitioner Interpreting Referring Physician Xochitl Rodriguez Type of Study TTE procedure:2D Echocardiogram, M-Mode, Doppler, Color Doppler. Procedure Date Date: 12/06/2020 Start: 01:08 PM Study Location: [facility] Technical Quality: Good visualization Indications:Subarach noid [...] Wall E' velocity:0.09 m/s Lateral Wall E/E':11 [facility] [place], [place] Mac, pn Incoming Cardio Results From [facility]/ - 12/06/2020 3:04 PM EST Transthoracic Echocardiography Report (TTE) Patient Name TROUT Date of Study 12/06/2020 ANIBAL Clark Date of 1970 Gender Male Age 50 year(s) Race Room Number 0540 Height: 69 inch, 175.26 cm Corporate ID [id number] Weight: 160 pounds, 72.6 kg # Patient Acct [id number] BSA: 1.88 m^2 BMI: 23.63 # kg/m^2 MR # [id number] Utility [employer]ster Sharlene Mckay Interpreting Physician Davion Stanton Fellow Referring Nurse Practitioner Interpreting Referring Physician Xochitl Reeves Fellow Type of Study TTE procedure:2D Echocardiogram, M-Mode, Doppler, Color Doppler. Procedure Date Date: 12/06/2020 Start: 01:08 PM Study Location: [facility] Technical Quality: Good visualization Indications:Subarach noid [...] Wall E' velocity:0.09 m/s Lateral Wall E/E':11 [place] Basic Metabolic Panelon 11-25 Anion gap [Moles/Vol] 8 mmol/L Low 9 - 17 mmol/L [place] Bun/Cre Ratio NOT REPORTED [place] Calcium [Mass/Vol] 8.1 mg/dL Low 8.6 - 10. 4 mg/dL [place] Chloride [Moles/Vol] 109 mmol/L High 98 - 10 7 mmol/L [place] CO2 [Moles/Vol] 20 mmol/L 20 - 31 mmol/L [place] Creatinine [Mass/Vol] 0.77 mg/dL 0.7 - 1.2 mg/dL [place] GFR >60 >60 mL/min [place] GFR Non- >60 >60 mL/min [place] GFR/1.73 sq M predicted among non-blacks MDRD (S/P/Bld) [Vol rate/Area] [place] Comment on above: Average GFR for 50-5 9 years old: 93 mL/min/1.73sq m Chronic Kidney Disease: <60 mL/min/1.73sq m Kidney failure: <15 mL/min/1.73sq m eGFR calculated using average adult body mass. Additional eGFR calculator available at: http://www.La Miu/multiple_crcl_2012.htm GFR/1.73 sq M predicted among non-blacks MDRD (S/P/Bld) [Vol rate/Area] NOT REPORTED [place] Glucose [Mass/Vol] 119 mg/dL High 70 - 99 mg/dL [place] Interpretation and review of laboratory results Abnormal [place] Potassium [Moles/Vol] 4.1 mmol/L 3.7 - 5.3 mmol/L [place] Sodium [Moles/Vol] 137 mmol/L 135 - 144 mmol/L [place] Urea nitrogen [Mass/Vol] 8 mg/dL 6 - 20 mg/dL [place] CBC Auto Differentialon 11-25 Basophils (Bld) [#/Vol] 0.00 10*3/uL [place] Basophils/100 WBC (Bld) 0 % 0 - 2 % [place] Differential Type NOT REPORTED [place] Eosinophils (Bld) [#/Vol] 0.00 10*3/uL [place] Eosinophils/100 WBC (Bld) 0 % Low 1 - 4 % [place] Erythrocyte distribution width (RBC) [Ratio] 15.0 % High 11.8 - 14.4 % [place] Hematocrit (Bld) [Volume fraction] 38.0 % Low 40.7 - 50.3 % [place] Hemoglobin (Bld) [Mass/Vol] 12.5 g/dL Low 13 - 17 g/dL [place] Immature granulocytes (Bld) [#/Vol] 0.08 10*3/uL [place] Immature granulocytes (Bld) [#/Vol] 1 % High 0 [place] Interpretation and review of laboratory results Abnormal [place] Lymphocytes (Bld) [#/Vol] 0.46 10*3/uL [place] Lymphocytes/100 WBC (Bld) 6 % Low 24 - 43 % [place] MCH (RBC) [Entitic mass] 27.1 pg 25.2 - 33.5 pg [place] MCHC (RBC) [Mass/Vol] 32.9 g/dL 28.4 - 34.8 g/dL [place] MCV (RBC) [Entitic vol] 82.4 fL Low 82.6 - 102.9 fL [place] Monocytes (Bld) [#/Vol] 0.23 10*3/uL [place] Monocytes/100 WBC (Bld) 3 % 3 - 12 % [place] Morphology Hari (Bld) [Interp] ANISOCYTOSIS PRESENT [place] Platelet mean volume (Bld) [Entitic vol] 9.9 fL 8.1 - 13.5 fL [place] Platelets (Bld) [#/Vol] 275 10*3/uL [place] Platelets (Bld) [#/Vol] NOT REPORTED [place] RBC (Bld) [#/Vol] 4.61 10*6/uL 4.21 - 5.7 7 m/uL [place] RBC morphology finding Nom (Bld) NOT REPORTED [place] Segmented neutrophils/100 WBC (Bld) 90 % High 36 - 65 % [place] Segs Absolute 6.83 [place] WBC (Bld) [#/Vol] 0.0 10*3/uL 0.0 per 10 0 WBC [place] WBC (Bld) [#/Vol] 7.6 10*3/uL [place] WBC Morphology NOT REPORTED [place] Magnesiumon 12-05-2020 Magnesium [Mass/Vol] 2.0 mg/dL 1.6 - 2 .6 mg/dL [place] Basic metabolic panelon 11-25 Anion gap [Moles/Vol] 12 mmol/L 9 - 17 mmol/L [place] Bun/Cre Ratio NOT REPORTED [place] Calcium [Mass/Vol] 8.4 mg/dL Low 8.6 - 10. 4 mg/dL [place] Chloride [Moles/Vol] 104 mmol/L 98 - 10 7 mmol/L [place] CO2 [Moles/Vol] 20 mmol/L 20 - 31 mmol/L [place] Creatinine [Mass/Vol] 0.72 mg/dL 0.7 - 1.2 mg/dL [place] GFR >60 >60 mL/min [place] GFR Non- >60 >60 mL/min [place] GFR/1.73 sq M predicted among non-blacks MDRD (S/P/Bld) [Vol rate/Area] [place] Comment on above: Average GFR for 50-5 9 years old: 93 mL/min/1.73sq m Chronic Kidney Disease: <60 mL/min/1.73sq m Kidney failure: <15 mL/min/1.73sq m eGFR calculated using average adult body mass. Additional eGFR calculator available at: http://www.La Miu/multiple_crcl_2012.htm GFR/1.73 sq M predicted among non-blacks MDRD (S/P/Bld) [Vol rate/Area] NOT REPORTED [place] Glucose [Mass/Vol] 112 mg/dL High 70 - 99 mg/dL [place] Interpretation and review of laboratory results Abnormal [place] Potassium [Moles/Vol] 3.8 mmol/L 3.7 - 5.3 mmol/L [place] Sodium [Moles/Vol] 136 mmol/L 135 - 144 mmol/L [place] Urea nitrogen [Mass/Vol] 9 mg/dL 6 - 20 mg/dL [place] CBCon 12-04-2020 Erythrocyte distribution width (RBC) [Ratio] 14.7 % High 11.8 - 14.4 % [place] Hematocrit (Bld) [Volume fraction] 42.0 % 40.7 - 50.3 % [place] Hemoglobin (Bld) [Mass/Vol] 13.3 g/dL 13 - 17 g/dL [place] Interpretation and review of laboratory results Abnormal [place] MCH (RBC) [Entitic mass] 26.6 pg 25.2 - 33.5 pg [place] MCHC (RBC) [Mass/Vol] 31.7 g/dL 28.4 - 34.8 g/dL [place] MCV (RBC) [Entitic vol] 84.0 fL 82.6 - 102.9 fL [place] Platelet mean volume (Bld) [Entitic vol] 9.3 fL 8.1 - 13.5 fL [place] Platelets (Bld) [#/Vol] 264 10*3/uL [place] RBC (Bld) [#/Vol] 5.00 10*6/uL 4.21 - 5.7 7 m/uL [place] WBC (Bld) [#/Vol] 6.8 10*3/uL [place] WBC (Bld) [#/Vol] 0.0 10*3/uL 0.0 per 10 0 WBC [place] Hemoglobin A1con 12-04-2020 Glucose [Mass/Vol] 105 mg/dL [place] Comment on above: The ADA and AACC rec ommend providing the estimated average glucose result to permit better patient understanding of their HBA1c result. HbA1c (Bld) [Mass fraction] 5.3 % 4 - 6 % [place] Lipid panel - fastingon 11-25 Cholesterol [Mass/Vol] 182 mg/dL <200 [place] Comment on above: Cholesterol Guidelines: <200 Desirable 200-240 Borderline >240 Undesirable Cholesterol in HDL [Mass/Vol] 68 mg/dL >40 [place] Comment on above: HDL Guidelines: <40 Undesirable 40-59 Borderline >59 Desirable Cholesterol in LDL [Mass/Vol] 107 mg/dL 0 - 130 mg/dL [place] Comment on above: LDL Guidelines: <100 Desirable 100-129 Near to/above Desirable 130-159 Borderline >159 Undesirable Direct (measured) LDL and calculated LDL are not interchangeable tests. Cholesterol in VLDL [Mass/Vol] NOT REPORTED 1 - 30 mg/dL [place] Cholesterol.total/Ch olesterol in HDL [Mass ratio] 2.7 {ratio} <5 [place] Triglyceride [Mass/Vol] 34 mg/dL <150 [place] Comment on above: Triglyceride Guidelines: <150 Desirable 150-199 Borderline 200-499 High >499 Very high Based on AHA Guidelines for fasting triglyceride, August 2012. Magnesiumon 12-04-2020 Magnesium [Mass/Vol] 1.9 mg/dL 1.6 - 2 .6 mg/dL [place] Troponinon 12-04-2020 Troponin I.cardiac [Mass/Vol] NOT REPORTED [place] Troponin T.cardiac [Mass/Vol] NOT REPORTED <0.03 ng/mL [place] Troponin, High Sensitivity 6 ng/L 0 - 22 ng/L [place] Comment on above: High Sensitivity Troponin values cannot be compared with other Troponin methodologies. Patients with high levels of Biotin oral intake (i.e >5mg/day) may have falsely decreased Troponin levels. Samples collected within 8 hours of biotin intake may require additional information for diagnosis. APTTon 12-03-2020 aPTT Coag (Bld) [Time] 26.4 s [place] Comment on above: IV Heparin Therapy Range: 48.6-77.8 Anion Gap (Calc) POCon 12-03 Anion gap [Moles/Vol] 7 mmol/L 7 - 16 mmol/L [place] BASIC METABOLIC PANELon Anion gap [Moles/Vol] 10 mmol/L 9 - 17 mmol/L [place] Bun/Cre Ratio NOT REPORTED [place] Calcium [Mass/Vol] 9.0 mg/dL 8.6 - 10. 4 mg/dL [place] Chloride [Moles/Vol] 104 mmol/L 98 - 10 7 mmol/L [place] CO2 [Moles/Vol] 22 mmol/L 20 - 31 mmol/L [place] Creatinine [Mass/Vol] 0.8 mg/dL 0.7 - 1.2 mg/dL [place] GFR >60 >60 mL/min [place] GFR Non- >60 >60 mL/min [place] GFR/1.73 sq M predicted among non-blacks MDRD (S/P/Bld) [Vol rate/Area] NOT REPORTED [place] GFR/1.73 sq M predicted among non-blacks MDRD (S/P/Bld) [Vol rate/Area] [place] Comment on above: Average GFR for 50-5 9 years old: 93 mL/min/1.73sq m Chronic Kidney Disease: <60 mL/min/1.73sq m Kidney failure: <15 mL/min/1.73sq m eGFR calculated using average adult body mass. Additional eGFR calculator available at: http://www.La Miu/multiple_crcl_2011.htm Glucose [Mass/Vol] 100 mg/dL High 70 - 99 mg/dL [place] Interpretation and review of laboratory results Abnormal [place] Potassium [Moles/Vol] 3.9 mmol/L 3.7 - 5.3 mmol/L [place] Sodium [Moles/Vol] 136 mmol/L 135 - 144 mmol/L [place] Urea nitrogen [Mass/Vol] 12 mg/dL 6 - 20 mg/dL [place] CALCIUM, IONIC (POC)on 12-03 POC Ionized Calcium 1.18 mmol/L 1.15 - 1 .33 mmol/L [place] CBC WITH AUTO DIFFERENTIALon 12-03-2020 Basophils (Bld) [#/Vol] 0.03 10*3/uL [place] Basophils/100 WBC (Bld) 0 % 0 - 2 % [place] Differential Type NOT REPORTED [place] Eosinophils (Bld) [#/Vol] 10*3/uL [place] Eosinophils/100 WBC (Bld) 0 % Low 1 - 4 % [place] Erythrocyte distribution width (RBC) [Ratio] 14.6 % High 11.8 - 14.4 % [place] Hematocrit (Bld) [Volume fraction] 45.5 % 40.7 - 50.3 % [place] Hemoglobin (Bld) [Mass/Vol] 14.7 g/dL 13 - 17 g/dL [place] Immature granulocytes (Bld) [#/Vol] 0.03 10*3/uL [place] Immature granulocytes (Bld) [#/Vol] 0 % 0 [place] Interpretation and review of laboratory results Abnormal [place] Lymphocytes (Bld) [#/Vol] 1.20 10*3/uL [place] Lymphocytes/100 WBC (Bld) 14 % Low 24 - 43 % [place] MCH (RBC) [Entitic mass] 27.1 pg 25.2 - 33.5 pg [place] MCHC (RBC) [Mass/Vol] 32.3 g/dL 28.4 - 34.8 g/dL [place] MCV (RBC) [Entitic vol] 83.8 fL 82.6 - 102.9 fL [place] Monocytes (Bld) [#/Vol] 0.53 10*3/uL [place] Monocytes/100 WBC (Bld) 6 % 3 - 12 % [place] Platelet mean volume (Bld) [Entitic vol] 9.6 fL 8.1 - 13.5 fL [place] Platelets (Bld) [#/Vol] NOT REPORTED [place] Platelets (Bld) [#/Vol] 323 10*3/uL [place] RBC (Bld) [#/Vol] 5.43 10*6/uL 4.21 - 5.7 7 m/uL [place] RBC morphology finding Nom (Bld) ANISOCYTOSIS PRESENT [place] Segmented neutrophils/100 WBC (Bld) 80 % High 36 - 65 % [place] Segs Absolute 6.63 [place] WBC (Bld) [#/Vol] 0.0 10*3/uL 0.0 per 10 0 WBC [place] WBC (Bld) [#/Vol] 8.4 10*3/uL [place] WBC Morphology NOT REPORTED [place] CHLORIDE (POC)on 12-03-2020 Chloride [Moles/Vol] 106 mmol/L 98 - 10 7 mmol/L [place] COVID-19on 12-03-2020 SARS-CoV-2, Rapid Not Detected Not Detected [place] Comment on above: Rapid NAAT: The [...] management decisions. Fact sheet for Healthcare Providers: https://www.fda.gov/media/440111/download Fact sheet for Patients: https://www.fda.gov/media/258599/download Methodology: Isothermal Nucleic Acid Amplification Source .NASOPHARYNGEAL SWAB [place], [place] CT HEAD WO CONTRASTon 2020 INR Coag (Bld) [Relative time] Addendum by Darryn Lam MD on 12/03/2020 7:50 PM ADDENDUM: Discussed with Dr. Arias at 7:46 p.m. [place] Subarachnoid hemorrhage as above. RECOMMENDATIONS: The findings were sent to the Radiology Results Communication Center at 7:34 pm on 12/03/2020to be communicated to a licensed caregiver. [place] EXAMINATION: CT OF THE HEAD WITHOUT [...] of the visualized skull or soft tissues. [place], [place] Incoming Radiant Results From [employer] - 12/03/2020 7:38 PM EST EXAMINATION: CT [...] 12/03/2020to be communicated to a licensed caregiver. [place] CTA HEAD NECK W CONTRASTon 0 12-03-2020 60% stenosis proximal right internal carotid artery. Less than 50% stenosis proximal left internal carotid artery. Moderate stenosis origin of the vertebral arteries bilaterally.. [place] EXAMINATION: CTA OF THE HEAD AND [...] fluid collection. The barney-white differentiation is maintained. [facility] [place] [place] Mac, [place]hpn Incoming Radiant Results From [employer] - 12/03/2020 9:01 PM EST EXAMINATION: CTA [...] stenosis origin of the vertebral arteries bilaterally.. [place] Creatinine W/GFR Point of Ca reon 12-03-2020 Creatinine [Mass/Vol] 0.93 mg/dL 0.51 - 1.19 mg/dL [place] GFR Non- >60 >60 mL/min [place] GFR/1.73 sq M predicted among non-blacks MDRD (S/P/Bld) [Vol rate/Area] [place] Comment on above: Average GFR for 50-5 9 years old: 93 mL/min/1.73sq m Chronic Kidney Disease: <60 mL/min/1.73sq m Kidney failure: <15 mL/min/1.73sq m eGFR calculated using average adult body mass. Additional eGFR calculator available at: http://www.English Helper.Greatist/multiple_crcl_2011.htm GFR/1.73 sq M predicted among non-blacks MDRD (S/P/Bld) [Vol rate/Area] mL/min/{1.73_m2} >60 mL/min [place] Hemoglobin and hematocrit, b loodon 12-03-2020 Hematocrit (Bld) [Volume fraction] 47 % 41 - 53 % [place] Hemoglobin (Bld) [Mass/Vol] 16.0 g/dL 13.5 - 17.5 g/dL [place] Lactic Acid, POCon POC Lactic Acid 0.68 mmol/L 0.56 - 1.39 mmol/L [place] Otheron 12-03-2020 SARS-CoV-2 [place] Interpretation and review of laboratory results Abnormal [place] POCT Glucoseon 12-03-2020 Glucose [Mass/Vol] 110 mg/dL High 74 - 100 mg/dL [place] POTASSIUM (POC)on 12-03-2020 Potassium [Moles/Vol] 3.8 mmol/L 3.5 - 4.5 mmol/L [place] Protime-INRon 12-03-2020 INR Coag (PPP) [Relative time] 1.0 {INR} [place] Comment on above: Therapeutic Range: Moderate Anticoagulant Intensity: INR = 2.0-3.0 High Anticoagulant Intensity: INR = 2.5-3.5 PT Coag (PPP) [Time] 10.3 s [place] SODIUM (POC)on 12-03-2020 Sodium [Moles/Vol] 140 mmol/L 138 - 146 mmol/L [place] Urine Drug Screenon 12-03-19 21 Amphetamine Screen, Ur Negative NEGATIVE [place] Comment on above: (Positive cutoff 1000 ng/mL) Barbiturate Screen, Ur Negative NEGATIVE [place] Comment on above: (Positive cutoff 200 ng/mL) Benzodiazepine Screen, Urine Negative NEGATIVE [place] Comment on above: (Positive cutoff 200 ng/mL) Buprenorphine Urine NOT REPORTED NEGATIVE [place] Cannabinoid Scrn, Ur Negative NEGATIVE [place], [place] Comment on above: (Positive cutoff 50 ng/mL) Cocaine Metabolite, Urine Negative NEGATIVE [place] Comment on above: (Positive cutoff 300 ng/mL) Interpretation and review of laboratory results Abnormal [place] MDMA, Urine NOT REPORTED NEGATIVE [place] Methadone Screen, Urine Negative NEGATIVE [place] Comment on above: (Positive cutoff 300 ng/mL) Methamphetamine, Urine NOT REPORTED NEGATIVE [place] Opiates, Urine Positive Abnormal NEGATIVE [place] Comment on above: (Positive cutoff 300 ng/mL) Oxycodone Screen, Ur Negative NEGATIVE [place] Comment on above: (Positive cutoff 100 ng/mL) Phencyclidine, Urine Negative NEGATIVE [place] Comment on above: (Positive cutoff 25 ng/mL) Propoxyphene, Urine NOT REPORTED NEGATIVE [place] Test Information Assay provides medical screening only. The absence of expected drug(s) and/or metabolite(s) may indicate diluted or adulterated urine, limitations of testing or timing of collection. [place] Comment on above: Testing for legal pu rposes should be confirmed by another method. To request confirmation of test result, please call the lab within 7 days of sample submission. Tricyclic Antidepressants, Urine NOT REPORTED NEGATIVE [place] Venous Blood Gas, POCon Jorge Test NOT REPORTED [place] aPTT Coag (Bld) [Time] NOT REPORTED [place] FIO2 NOT REPORTED [place] HCO3, Venous 26.8 mmol/L 22 - 29 mmol/L [place] Mode NOT REPORTED [place] Negative Base Excess, Abdifatah NOT REPORTED [place] O2 Device/Flow/% NOT REPORTED [place] Oxygen saturation in Blood 54 % Low 60 - 85 % [place] pCO2, Abdifatah 43.4 [place] pH, Abdifatah 7.398 [place] pO2, Abdifatah 28.9 Low [place] POC pCO2 Temp NOT REPORTED mm Hg [place] POC pH Temp NOT REPORTED [place] POC pO2 Temp NOT REPORTED mm Hg [facility] [place] Positive Base Excess, Abdifatah 2 [facility] [place] Sample Site NOT REPORTED [facility] [place] Total CO2, Venous 28 mmol/L 23 - 30 mmol/L [facility] [place] Vital Signs Date Time Vital Sign Value Performing Clinician Emilia quintana 07-19-2022 12:01-0400 Body temperature 97 [degF] Nidia Ahammad DO Work Phone: [facility] [employer] [facility] [employer] 07-19-2022 12:01-0400 Diastolic blood pressure 82 mm[Hg] Nidia Ahammad DO [facility] [employer] 07-19-2022 12:01-0400 Heart rate 68 /min Nidia Ahammad DO Work Phone: [facility] [employer] 07-19-2022 12:01-0400 Respiratory rate 18 /min Nidia Ahammad DO Work Phone: [facility] [employer] 07-19-2022 12:01-0400 SaO2% (BldA) [Mass fraction] 100 % Nidia Ahammad DO Work Phone: [facility] [employer] [facility] [employer] 07-19-2022 12:01-0400 Systolic blood pressure 138 mm[Hg] Nidia Ahammad DO Work Phone: [facility] [employer] 07-19-2022 08:10-0400 Body height 172.7 cm Nidia Ahammad DO Work Phone: [facility] [employer] 07-19-2022 08:10-0400 Body mass index (BMI) [Ratio] 24.33 kg/m2 Nidia Ahammad DO Work Phone: [facility] [employer] 07-19-2022 08:10-0400 Body weight 72.58 kg Nidia Ahammad DO Work Phone: [facility] [employer] 07-05-2022 10:57-0400 Body temperature 97.81 [degF] [facility] [employer] [facility] [employer] 07-05-2022 10:57-0400 Diastolic blood pressure 82 mm[Hg] [facility] 07-05-2022 10:57-0400 Heart rate 54 /min [facility] 2 [facility] 07-05-2022 10:57-0400 Respiratory rate 18 /min [facility] 2 [facility] 07-05-2022 10:57-0400 Systolic blood pressure 136 mm[Hg] [facility] 12-13-2020 16:15-0500 Body Temperature 97.2 [degF] [facility] [place] 12-13-2020 16:15-0500 BP Diastolic 85 mm[Hg] [facility] , [place] 12-13-2020 16:15-0500 BP Systolic 122 mm[Hg] [place] 12-13-2020 16:15-0500 Pulse (Heart Rate) 60 /min [place] 12-13-2020 16:15-0500 Respiratory Rate 16 /min [facility] [place] 12-13-2020 13:28-0500 Pulse Oximetry 100 % [place] 12-09-2020 13:56-0500 Height 175.3 cm [place] 12-03-2020 19:10-0500 BMI (Body Mass Index) 23.63 kg/m2 [place] 12-03-2020 19:10-0500 Body weight 72.58 kg [place] Encounters Encounter Date Encounter Type Care Provider Facility Start: 05-06-2024 End: 05-06-2024 ambulatory DALIA CÁRDENAS Not Available Start: 03-17-2024 End: 03-17-2024 Emergency department patient visit Nicole Jean Facility:[facility] Start: 03-30-2023 End: 03-31-2023 ambulatory MEHREEN GU [facility] Start: 03-30-2023 End: 03-30-2023 Subsequent hospital visit by physician Baljinder MARSHALL Work Phone: [facility] Comment on above: Serum potassium elev ated Start: 03-26-2023 End: 03-27-2023 ambulatory BALJINDER ARTHUR [facility] Start: 03-26-2023 End: 03-26-2023 Subsequent hospital visit by physician Baljinder MARSHALL Work Phone: [facility] Comment on above: Essential (primary) hypertension; Hyperlipidemia, unspecified hyperlipidemia type Start: 08-31-2022 End: 09-03-2022 ambulatory SUKHJINDER MUSA [facility] Start: 08-31-2022 End: 09-02-2022 Subsequent hospital visit by physician [facility] Mri Rm 119 [facility] MRI Comment on above: SAH (subarachnoid [...] End: 07-09-2022 Subsequent hospital visit by physician Myra Pat Rm 2 [facility] Pre-Admit Testing Start: 09-06-2021 End: 09-08-2021 Subsequent hospital visit by physician [facility] Ct Rm [address] [facility] [address] Scan Comment on above: SAH (subarachnoid he morrhage) (HCC) Start: 03-08-2021 End: 03-10-2021 Subsequent hospital visit by physician [facility] Ct Rm [address] [facility] [address] Scan Comment on above: SAH (subarachnoid he morrhage) (HCC) Start: 12-22-2020 End: 12-24-2020 Subsequent hospital visit by physician [facility] Ct Rm [address] [facility] [address] Scan Comment on above: Sciatica of left gogo e Start: 12-03-2020 End: 12-13-2020 Evaluation and management of inpatient Geraldo Lal Work Phone: [facility] 5C Neuro Comment on above: SAH (subarachnoid he morrhage) (HCC) (Primary Dx) Procedures Date Procedure Procedure Detail Performing Clinician Start: 03-30-2023 Basic metabolic pane l calcium total Mehreen Olivarez PA-C Work Phone: Start: 03-26-2023 Blood count complete auto&auto difrntl wbc Baljinder MARSHALL Work Phone: Start: 08-31-2022 End: 08-31-2022 Mri brain brain stem w/o w/contrast material Carolyn Joseph MD Work Phone: Start: 08-31-2022 CREATININE W/GFR POI NT OF CARE Carolyn Joseph MD Work Phone: Start: 07-19-2022 Fluoroscopy during operation [employer] Work Phone: Start: 07-05-2022 Antibody screen [facility] 2 Start: 07-05-2022 Blood typing serologic abo [employer] Work Phone: Start: 07-05-2022 Electrolyte panel Alin Hernandez MD Work Phone: Start: 07-05-2022 Ecg routine ecg w/le ast 12 lds i&r only Mauricio MARSHALL Work Phone: Start: 09-06-2021 Ct angiography head w/contrast/noncontrast Carolyn Joseph MD Work Phone: Start: 03-08-2021 Ct angiography head w/contrast/noncontrast Samantha Husain MD Work Phone: Start: 12-22-2020 Ct lumbar spine w/o contrast material Geoff Dodson Work Phone: Start: 12-13-2020 Assay of magnesium [...] Phone: Start: 12-11-2020 Assay of magnesium Coli n Bacilio Hartley Work Phone: Start: 12-11-2020 Basic metabolic pane l calcium total Rana H Rodrigue Work Phone: Start: 12-11-2020 Blood count complete auto&auto difrntl wbc Rana H Rodrigue Work Phone: Start: 12-10-2020 Assay of magnesium Coli n Bacilio Hartley Work Phone: Start: 12-10-2020 Basic metabolic pane l calcium total Rana H Rodrigue Work Phone: Start: 12-10-2020 Blood count complete auto&auto difrntl wbc Rana H Rodrigue Work Phone: Start: 12-09-2020 Transcranial doppler stdy intracranial art compl Rana H Rodrigue Work Phone: Start: 12-09-2020 Assay of magnesium Coli n Bacilio Hartley Work Phone: Start: 12-09-2020 Basic metabolic [...] Hpf Scanning Start: 12-05-2020 Assay of magnesium Dinesh Hartley Work Phone: Start: 12-05-2020 Basic metabolic pane l calcium total Xochitl Reeves Work Phone: Start: 12-05-2020 Blood count complete auto&auto difrntl wbc Xochitl Reeves Work Phone: Start: 12-04-2020 Slctv cath carotid/i nnom art angio intrcranl art Osama O Zaidat Work Phone: Start: 12-04-2020 Assay of magnesium Dinesh han Bacilio Odilia Work Phone: Start: 12-04-2020 Assay of troponin quantitative Keo Bacilio Odilia Work Phone: Start: 12-04-2020 Basic metabolic pane l calcium total Keo Bacilio Odilia Work Phone: Start: 12-04-2020 Blood count complete automated Keo Bacilio Odilia Work Phone: Start: 12-04-2020 Hemoglobin glycosylated a1c Keo Saleher Work Phone: Start: 12-04-2020 Lipid panel Keo Rice Work Phone: Start: 12-03-2020 Speech and language therapy regime Keo Hartley Work Phone: Start: 12-03-2020 Drug screen class list a Keo Hartley Work Phone: Start: 12-03-2020 Basic metabolic pane l calcium total Mathieu Perla Work Phone: Start: 12-03-2020 Blood count complete auto&auto difrntl wbc Mathieu Perla Work Phone: Start: 01-09-2021 Prothrombin time Mathieu Perla Work Phone: Start: 12-03-2020 Thromboplastin time partial plasma/whole blood Mathieu Perla Work Phone: Start: 12-03-2020 COVID-19 [place] Work Phone: Start: 12-03-2020 Ct angiography neck w/contrast/noncontrast Samer Aayush Howell Work Phone: Start: 12-03-2020 Ct head/brain w/o co ntrast material Samer Aayush Howell Work Phone: Start: 12-03-2020 ANION GAP (CALC) POC Azar Ribera Lukasz Work Phone: Start: 12-03-2020 Blood count hemoglobin Geraldo Lal Work Phone: Start: 12-03-2020 CALCIUM, IONIC (POC) Da lance Lal Work Phone: Start: 12-03-2020 Chloride [Moles/Vol] Azar Ribera Lukasz Work Phone: Start: 12-03-2020 CREATININE W/GFR POI [...] INT OF CARE Geraldo Lal Work Phone: Plan of Treatment Date Care Activity Detail Author Start: 05-01-2025 Screening for malign ant neoplasm of colon [facility] Start: 03-26-2024 Lipid panel Lipids [facility] Start: 03-04-2024 Depression Screen Depression Screen [facility] Start: 12-04-2023 Diabetes screen Diabetes screen [facility] Start: 06-25-2023 Influenza vaccination Flu vacc ine (Season Ended) [facility] Start: 09-17-2022 End: 09-17-2022 Patient encounter procedure 09/17/2022 Office Visit Neurosurgery Nidia Archer DO [address] [id number] [facility] Start: 09-01-2022 [facility]: Start: 09-01-2022 Lipid panel [facility] Start: 09-01-2022 Potassium monitoring Potassium monit oring [facility] Work Phone: Start: 08-02-2022 End: 08-02-2022 Patient encounter procedure 08/02/2022 Office Visit Neurosurgery King Sukhjinder W, SPECIMEN BOSS - DIETETIC INTERN [address] [id number] [facility] Start: 07-26-2022 Influenza vaccination Flu vaccine (# 1) [facility] Start: 07-19-2022 End: 07-19-2022 Admission to same day surgery center 07/19/2022 Surgery IP Unit Nidia Archer DO [address] [phone] EXPLANTATION OF SPINAL CORD STIMULATOR (REGULAR TABLE, PRONE) [facility] Comment on above: EXPLANTATION OF SPIN AL CORD STIMULATOR (REGULAR TABLE, PRONE) Start: 07-19-2022 End: 07-19-2022 STIMULATOR INSERTION [facility] Start: 07-19-2022 Subsequent hospital visit by physician 07/19/2022 Hospital Encounter IP Unit Nidia Archer DO [address] [place] [id number] [facility] Start: 06-25-2022 Influenza vaccination Flu vaccine (# 1) [facility] Start: 05-22-2022 Depression Screen Depression Screen [facility] Start: 12-13-2021 Creatinine measurement Creatinine mo nitoring [place], [place] Start: 12-13-2021 Potassium monitoring Potassium monit oring [place] Start: 12-04-2021 Lipid panel Lipid screen [place] Start: 10-16-2021 End: 10-16-2021 Patient encounter procedure 10/16/2021 Office Visit Primary Care Baljinder Arthur, [address] [address] [place] [address] [phone] [facility] Start: 10-03-2021 End: 10-03-2021 ambulatory 10/03/2021 Virtual Visit Neurology Carolyn Joseph MD [address] [facility] [address] [id number] [facility] Start: 09-30-2021 Screening for malign ant neoplasm of colon Colon cancer screen fecal DNA test (Cologuard) [facility] [employer] Phone: Start: 07-26-2021 Influenza vaccination [facility] Work Phone: Start: 07-14-2021 COVID-19 Vaccine (3 - Booster for Pfizer series) COVID-19 Vaccine (3 - Booster for Pfizer series) [facility] Start: 04-08-2021 COVID-19 Vaccine (3 - Booster for Pfizer series) COVID-19 Vaccine (3 - Booster for Pfizer series) [facility] Start: 03-13-2021 End: 03-13-2021 ambulatory 03/13/2021 Virtual Visit Neurology Carolyn Joseph MD [address] [facility] [address] [phone] [facility] Start: 03-13-2021 End: 12-13-2021 CTA HEAD W CONTRAST CTA HEAD W CONTRAST Imaging Routine SAH (subarachnoid hemorrhage) (HCC) Expected: 03/13/2021, Expires: 12/13/2021 [place], [place] Comment on above: Expected: 03/13/2021 , Expires: 12/13/2021 Start: 03-07-2021 End: 03-07-2021 Office Visit 03/07/2021 Office Visit Neurology Carolyn Joseph MD [address] [facility] [address] [place] [address] [phone] [facility] Start: 01-06-2021 End: 01-06-2021 Office Visit 01/06/2021 Office Visit Neurology Hermes Box MD [address] [facility] [address] [place] [phone] [facility] Start: 01-02-2021 End: 01-02-2021 Office Visit 01/02/2021 Office Visit Neurology Pavan Howell MD [address] [phone] [facility] Neuro [facility] Start: 07-26-2020 Influenza vaccination Flu vaccine (# 1) [place], [place] Start: 2018 Screening for malign ant neoplasm of colon Colon cancer screen colonoscopy [place], [place] Start: 2018 Shingles Vaccine (1 of 2) Shingles Vaccine (1 of 2) [facility] Start: 2013 Screening for malign ant neoplasm of colon [facility] Start: 1987 DTaP/Tdap/Td vaccine (1 - Tdap) DTaP/Tdap/Td vaccine (1 - Tdap) [facility] Start: 1983 HIV screening HIV screen [place], [place] Start: 1970 Hepatitis C screening Hepatitis C sc reen [place], [place] Basic metabolic 2000 panel BASIC METABOLIC PANEL Lab Routine Daily until discontinued starting 12/07/2020, 6 completed [facility] Comment on above: Daily until disconti nued starting 12/07/2020, 6 completed CBC WITH AUTO DIFFERENTIAL CBC WITH AUTO DIFFERENTIAL Lab Routine Daily until discontinued starting 12/07/2020, 6 completed [facility] Comment on above: Daily until disconti nued starting 12/07/2020, 6 completed End: 03-26-2023 Comprehensive metabolic 2000 panel - Serum or Plasma [facility]) Phone: Comment on above: 1 Occurrences starti ng 03/26/2023 until 03/26/2023 Continuous pulse oximetry Pulse oximetry, continuous Respiratory Care Routine Every 4hr until discontinued starting 12/04/2020 [facility] Comment on above: Every 4hr until disc ontinued starting 12/04/2020 End: 12-04-2020 EKG 12 Lead EKG 12 Lead ECG Routine One Time for 1 Occurrences starting 12/04/2020 until 12/04/2020 [facility] Comment on above: One Time for 1 Occur rences starting 12/04/2020 until 12/04/2020 End: 07-05-2022 EKG 12 Lead EKG 12 Lead ECG Routine One Time for 1 Occurrences starting 07/05/2022 until 07/05/2022 [facility] [employer] Phone: Comment on above: One Time for 1 Occur rences starting 07/05/2022 until 07/05/2022 End: 07-19-2022 INITIATE PACU OXYGEN THERAPY PROTOCOL Initiate PACU Oxygen Therapy Protocol Respiratory Care Routine Continuous until discontinued starting 07/19/2022 [facility] [employer] Phone: Comment on above: Continuous until dis continued starting 07/19/2022 Intermittent pulse oximetry Pulse Oximetry Spot Check Respiratory Care Routine As Needed until discontinued starting 12/13/2020 [facility] Comment on above: As Needed until disc ontinued starting 12/13/2020 End: 12-13-2020 IR ANGIOGRAM CAROTID C EREBRAL BILATERAL IR ANGIOGRAM CAROTID C EREBRAL BILATERAL Imaging Routine Once for 1 Occurrences starting 12/13/2020 until 12/13/2020 [facility] [place] Comment on above: Once for 1 Occurrenc es starting 12/13/2020 until 12/13/2020 IR ANGIOGRAM CAROTID C EREBRAL BILATERAL [facility] [place] End: 03-26-2023 Lipid, Fasting [facility] Instagram Phone: Comment on above: 1 Occurrences starti ng 03/26/2023 until 03/26/2023 End: 12-17-2020 Magnesium [Mass/Vol] Magnesium Lab Routine Daily for 2 Weeks starting 12/04/2020 until 12/17/2020, 8 completed [facility] [place] Comment on above: Daily for [address]ting 12/04/2020 until 12/17/2020, 8 completed Oxygen therapy [[facility] Data Set] [facility] [place] Comment on above: Daily until disconti nued starting 12/04/2020 Daily until disconti nued starting 12/13/2020 End: 03-26-2023 PSA screening [facility] Instagram Phone: Comment on above: 1 Occurrences starti ng 03/26/2023 until 03/26/2023 Spirometry panel Incentive nereyda metry Respiratory Care Routine Every 2hr while awake until discontinued starting 07/19/2022 [facility] Instagram Phone: Comment on above: Every 2hr while awak e until discontinued starting 07/19/2022 Surgical Pathology Surgical Path ology Lab Routine Complex regional pain syndrome type 1 of left upper extremity Release Upon Ordering for 1 Occurrences starting 07/19/2022 [facility] Instagram Phone: Comment on above: Release Upon Orderin g for 1 Occurrences starting 07/19/2022 End: 07-19-2022 SURGICAL PATHOLOGY REPORT SURGICAL PATHOLOGY REPORT Lab Routine Once for 1 Occurrences starting 07/19/2022 until 07/19/2022 [facility] Instagram Phone: Comment on above: Once for 1 Occurrenc es starting 07/19/2022 until 07/19/2022 Immunizations Immunization Date Immunization Notes Care Provider Kavon lara 03-20-2021 COVID-19, Pfizer, PF , 30mcg/0.3mL Stc 1 [facility] [employer] Work Phone: 01-21-2021 COVID-19, Pfizer, PF , 30mcg/0.3mL Stc 1 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 1970 Unknown [id number] [id number] 1970 Unknown [id number] Social History Date Type Detail Facility Start: 12-05-2020 End: 07-05-2022 Tobacco smoking status DEIS Never smoker [place], [place] Start: 12-05-2020 End: 07-05-2022 Tobacco use and exposure Never used [place], [place] Start: 12-05-2020 End: 03-04-2023 Alcohol intake Current drinker of alcohol (finding) [place] Start: 12-03-2020 Alcohol Comment 1-2 beers every nigh t [place], [place] Start: 1970 Sex Assigned At Not on file [place] Start: 06-25-2022 End: 08-03-2022 Exposure to SARS-CoV-2 (event) Not sure [employer]- [place], [place] Start: 09-01-2021 End: 03-04-2023 Alcohol intake [employer] Phone: Start: 05-22-2021 End: 03-04-2023 History SDOH Financial 5 [employer] Phone: Start: 05-22-2021 End: 03-04-2023 History SDOH Food Worry 1 [employer] Work Phone: Start: 05-22-2021 Alcohol Comment social [employer] Work Phone: Start: 07-05-2022 History SDOH Alcohol Comment a beer or 2, 2-3 times a week. [employer] Work Phone: Start: 03-04-2023 History SDOH Housing Homeless Last Year 2 [employer] [employer]) Phone: Medical Equipment Procedure Code Equipment Code Equipment Original Text Equipment Identifier Dates Lead Pace L90cm 2x8 Spec Surescan Mri - [id number] Start: 12-11-2022 Pouch Tyrx Neuro Antimicrobial Med - [id number] Start: 12-12-2022 Plate Bne Bar L1 2mm 2 H Craniomaxillofacial Ti Rig For Univ - [id number] Start: 12-11-2022 Cath Passer 60cm - [id number] Start: 12-12-2022 Clinical Notes 07-04-2022 to 03-17-2024 Discharge InstructionsROLANDO Hutchison - 07/05/2022 10:30 AM EDTDischarge Instructions Note [...] homework. ? Working on the computer, social [employer], and texting. ? Avoid activities that could cause another head injury until your doctor says it is okay. This includes playing sports. Having another head injury, especially before the first one has healed, can be dangerous. ? Ask your doctor when it is safe for you to go back to your normal activities, such as work or school. Ask your doctor for a glcl-ud-wgzc plan for slowly going back to your [...] your friends, family, a trusted co-worker, and refuse and recycling worker about your injury, symptoms, and limits (restrictions). Have them watch for any problems that are new or getting worse. General instructions ? Take fosc-tjf-gwjznec and prescription medicines only as told by [...] ? Limit how (more content not included)... [facility] 07-19-2022 Hospital Discharg e instructions Mauricio Rashid RN - 07/19/2022 12:15 PM EDT Images from the original note were not included. Surgery Discharge Instructions Thank you for choosing [facility] for your surgical needs. The following instructions will help to ensure your comfort and that you are well prepared after your surgery. Post-Operative Visit: The office is located at: [facility] [address] [place] [address], [address], [place] [address] Please also call your primary care physician [...] taking short, frequent walks in the beginning. [place], more frequent walks throughout the day are [...] appointment. YOU SHOULD CALL THE OFFICE AT [phone] IF YOU HAVE ANY OF THE FOLLOWING: [...] your doctor documented in this encounter [facility] Instagram Phone: 07-05-2022 History of Presen t illness [...] Neuro notes available in paper chart and [facility], Dr. Joseph. CT 02/2022 no acute abnormality. CTA 11/2020 in [facility] unremarkable CTA. Most recent office note with Dr. Joseph in chart 07/02/22. No further clearance requested by Dr. Saleh, notes are all available in epic and paper chart. EKG also reviewed, patient is without cardiac or pulmonary complaints, is a runner, active. No further request. MAURICIO MURPHY PA-C 07/05/22 11:07 AM documented in this encounter [facility] Instagram Phone: 07-04-2022 Hospital Discharg e instructions ROLANDO Hutchison - 07/04/2022 8:31 AM EDT Images from [...] drive you home after your procedure. Your bobtail driver must be 18 years of age [...] questions, call the Pre-Admission Testing Unit at [phone]. Day of Surgery/Procedure As a patient at [facility] you can expect quality medical and nursing care that is centered on your individual needs. Our goal is to make your surgical experience as comfortable as possible . Directions to the Surgery Center [facility] is located at [address] [place] [address]. Please pull into the Emergency Room & Surgery Center parking lot (Entrance B) and park in that lot. We also have additional parking across the street. You will enter the facility following the [facility] sign. Please stop at the medical records receptionist desk where you will be checked in by the staff. If you have any questions please call [phone]. Transportation after your procedure. You will need a friend or family member to drive you home after your procedure. Your bobtail driver must be 18 years of age [...] You may shave your face or neck. [place] your teeth but do not swallow water. [...] or the day of surgery, please call [phone], or [phone] documented in this encounter [facility] [employer] Phone: Evaluation note Diagnosis SAH (subarachnoid hemorrhage) (HCC) Subarachnoid hemorrhage documented in this encounter [employer] Phone: evaluktlek note* Diagnosis SAH (subarachnoid hemorrhage) (HCC) Subarachnoid hemorrhage documented in this encounter [employer] Phone: evaldrowby note* Diagnosis Acute post-operative pain- Primary Complex regional pain syndrome type 1 of left upper extremity Essential (primary) hypertension Unspecified essential hypertension Hyperlipidemia, unspecified hyperlipidemia type documented in this encounter [facility] [employer] Phone: evaluation note* Diagnosis SAH (subarachnoid hemorrhage) (HCC) Subarachnoid hemorrhage documented in this encounter [employer] [employer] Phone: evalcnfzim note* Diagnosis Complex regional pain syndrome type 1 of left upper extremity Failure of spinal cord stimulator, subsequent encounter documented in this encounter [facility] [employer]) Phone: evaluation note* Diagnosis Essential (primary) hypertension Unspecified essential hypertension Hyperlipidemia, unspecified hyperlipidemia type documented in this encounter [facility] [employer]) Phone: evaluation note* Diagnosis Serum potassium elevated Hyperpotassemia documented in this encounter [facility] Phone: Reason for Referral Status Reason Specialty Diagnoses / Procedures Referre d By Contact Referred To Contact Open Radiology Diagnoses SAH (subarachnoid hemorrhage) (HCC) Procedures CTA HEAD W CONTRAST Samantha Husain MD [address] [place] [address] Status Reason Specialty Diagnoses / Procedures Referre d By Contact Referred To Contact Closed Radiology Diagnoses Sciatica of left side Procedures CT LUMBAR SPINE WO CONTRAST Geoff Dodson MD [facility], [address] [place] [address] [address], [address] [address] Status Reason Specialty Diagnoses / Procedures Referre d By Contact Referred To Contact Closed Radiology Diagnoses SAH (subarachnoid hemorrhage) (HCC) Procedures CTA HEAD W CONTRAST [address] Samantha Husain MD [address] [place] [address] Status Reason Specialty Diagnoses / Procedures Referre d By Contact Referred To Contact Closed Radiology Diagnoses SAH (subarachnoid hemorrhage) (HCC) Procedures CTA HEAD W CONTRAST [id number] [phone] case # [id number] Carolyn Joseph MD [address] [place] [address] [address] [address] Specialty Diagnoses / Procedures Referred By Contac t Referred To Contact Radiology Diagnoses SAH (subarachnoid hemorrhage) (HCC) I60.9 (ICD-10-CM) - SAH (subarachnoid hemorrhage) (HCC) Procedures MRI BRAIN W WO CONTRAST [place] BRAIN COMBO [address] - [place] MRI BRAIN COMBO Carolyn Joseph MD [address] [facility] [address] [address] Referral ID Status Reason Start Date Expiration Date Visits Re quested Visits Authorized [id number] Closed 08/30/2022 07/02/2023 1 1 Specialty Diagnoses / Procedures Referred By Contac t Referred To Contact Radiology Diagnoses Complex regional pain syndrome type 1 of left upper extremity Failure of spinal cord stimulator, subsequent encounter G90.512 (ICD-10-CM) - Complex regional pain syndrome type 1 of left upper extremity Procedures MRI CERVICAL SPINE WO CONTRAST [place], CERV SPINE [address] - [place] MRI, CERV SPINE Sukhjinder Musa, SPECIMEN BOSS - DIETETIC INTERN [address] [facility] [address] [facility] [address] [place] [address] Referral ID Status Reason Start Date Expiration Date Visits Re quested Visits Authorized [id number] Closed 08/30/2022 08/24/2023 1 1 History of Present Illness * Samantha Husain MD - 12/13/2020 8:00 AM EST Daily Progress Note Neuro Critical Care Patient Name: Anibal Damon Patient : [id number] Room/Bed: [address] [place] [address] Code Status: Full Code Allergies: No Known Allergies CHIEF COMPLAINT: Headache INTERVAL HISTORY Initial Presentation (Admitted 12/03/2020): The patient is a 50-year-old male with a history of complex regional pain syndrome s/p nerve stimulator who was transferred from [facility] for SAH. Pt notes that he went [...] not resolve his pain, he went to [facility] ED for evaluation. CT Head w/o contrast and CTA Neck and Head revealed SAH with no aneurysm. Pt was transferred to [facility] for neuro-endovascular and neuro-critical care evaluation. Pt arrived to [facility], where the CTH and CTA re-demonstrated the [...] Samantha Husain MD Neuro Critical Care Pager [phone] 12/13/2020 8:00 AM Associated attestation - Samy [...] spent was 34 minutes excluding procedural time M Hugo Groves MD * Hermes Box MD - [...] Box MD Stroke, Neurocritical Care & [facility] Electronically signed 12/12/2020 at 3:26 PM [...] 35 minutes Carolyn Joseph MD, MS Office [phone]. Cell [phone] Stroke, Neurocritical Care & [facility] * Samantha Husain MD - 12/12/2020 8:19 AM EST Daily Progress Note Neuro Critical Care Patient Name: Anibal Damon Patient : 1970 Room/Bed: [facility]/0540- Code Status: Full Code Allergies: No Known Allergies CHIEF COMPLAINT: Headache INTERVAL HISTORY Initial Presentation (Admitted 12/03/2020): The patient is a 50-year-old male with a history of complex regional pain syndrome s/p nerve stimulator who was transferred from [facility] for SAH. Pt notes that he went [...] not resolve his pain, he went to [facility] ED for evaluation. CT Head w/o contrast and CTA Neck and Head revealed SAH with no aneurysm. Pt was transferred to [facility] for neuro-endovascular and neuro-critical care evaluation. Pt arrived to [facility], where the CTH and CTA re-demonstrated the [...] Samantha Husain MD Neuro Critical Care Pager [phone] 12/12/2020 12:19 PM Associated attestation - Samy [...] MD, PhD Stroke, Neurocritical Care & [facility]intervention [facility] Stroke Network [facility] Stroke [facility] Electronically signed 12/11/2020 at 10:19 AM Associated [...] speaking with team. Dell Ventura MD Office [phone]. Cell [phone] Stroke, Neurocritical Care & Neurointervention [facility] Stroke Network [facility] Stroke [facility] * Israel Darden MD - 12/11/2020 6:46 AM EST Daily Progress Note Neuro Critical Care Patient Name: Anibal Damon Patient : 1970 Room/Bed: [facility]/0540-01 Code Status: Full Code Allergies: No Known Allergies CHIEF COMPLAINT: Headache INTERVAL HISTORY Initial Presentation (Admitted 12/03/2020): The patient is a 50-year-old male with a history of complex regional pain syndrome s/p nerve stimulator who was transferred from [facility] for SAH. Pt notes that he went [...] not resolve his pain, he went to [facility] ED for evaluation. CT Head w/o contrast and CTA Neck and Head revealed SAH with no aneurysm. Pt was transferred to [facility] for neuro-endovascular and neuro-critical care evaluation. Pt arrived to [facility], where the CTH and CTA re-demonstrated the [...] Israel Darden MD Neuro Critical Care Pager [phone] 12/11/2020 6:46 AM Associated attestation - Conor [...] MD, PhD Stroke, Neurocritical Care & Neurointervention [facility] Stroke Network [facility] Stroke Center [facility] Electronically signed 12/10/2020 at 9:55 AM Associated [...] speaking with team. Dell Ventura MD Office [phone]. Cell [phone] Stroke, Neurocritical Care & Neurointervention [facility] Stroke Network [facility] Stroke [facility] * Israel Darden MD - 12/10/2020 7:28 AM EST Daily Progress Note Neuro Critical Care Patient Name: Anibal Damon Patient : 1970 Room/Bed: [address] [place] [address] Code Status: Full Code Allergies: No Known Allergies CHIEF COMPLAINT: Headache INTERVAL HISTORY Initial Presentation (Admitted 12/03/2020): The patient is a 50-year-old male with a history of complex regional pain syndrome s/p nerve stimulator who was transferred from [facility] for SAH. Pt notes that he went [...] not resolve his pain, he went to [facility] ED for evaluation. CT Head w/o contrast and CTA Neck and Head revealed SAH with no aneurysm. Pt was transferred to [facility] for neuro-endovascular and neuro-critical care evaluation. Pt arrived to [facility], where the CTH and CTA re-demonstrated the [...] Israel Darden MD Neuro Critical Care Pager [phone] 12/10/2020 7:28 AM Associated attestation - Conor [...] Discharge Planning: Too soon to determine Contact: [phone] * Geoff Dodson MD - 12/09/2020 8:00 [...] MD, PhD Stroke, Neurocritical Care & Neurointervention [facility] Stroke Network [facility] Stroke [facility] Electronically signed 12/09/2020 at 6:45 PM Associated [...] 35 minutes Carolyn Joseph MD, MS Office [phone]. Cell [phone] Stroke, Neurocritical Care & Neurointervention [facility] Stroke Network [facility] Stroke [facility] * Samantha Husain MD - 12/09/2020 7:58 AM EST Daily Progress Note Neuro Critical Care Patient Name: Anibal Damon Patient : 1970 Room/Bed: [facility]05- Code Status: Full Code Allergies: No Known Allergies CHIEF COMPLAINT: Headache INTERVAL HISTORY Initial Presentation (Admitted 12/03/2020): The patient is a 50-year-old male with a history of complex regional pain syndrome s/p nerve stimulator who was transferred from [facility] for SAH. Pt notes that he went [...] not resolve his pain, he went to [facility] ED for evaluation. CT Head w/o contrast and CTA Neck and Head revealed SAH with no aneurysm. Pt was transferred to [facility] for neuro-endovascular and neuro-critical care evaluation. Pt arrived to [facility], where the CTH and CTA re-demonstrated the [...] Samantha Husain MD Neuro Critical Care Pager [phone] 12/09/2020 9:58 AM Associated attestation - Conor [...] MD, PhD Stroke, Neurocritical Care & Neurointervention [facility] Stroke Network [facility] Stroke [facility] Electronically signed 12/08/2020 at 2:33 PM Associated [...] 35 minutes Carolyn Joseph MD, MS Office [phone]. Cell [phone] Stroke, Neurocritical Care & Neurointervention [facility] Stroke Network [facility] Stroke [facility] * Samantha Husain MD - 12/08/2020 7:22 AM EST Daily Progress Note Neuro Critical Care Patient Name: Anibal Damon Patient : 1970 Room/Bed: [facility]/0540- Code Status: Full Code Allergies: No Known Allergies CHIEF COMPLAINT: Headache INTERVAL HISTORY Initial Presentation (Admitted 12/03/2020): The patient is a 50-year-old male with a history of complex regional pain syndrome s/p nerve stimulator who was transferred from [facility] for SAH. Pt notes that he went [...] not resolve his pain, he went to [facility] ED for evaluation. CT Head w/o contrast and CTA Neck and Head revealed SAH with no aneurysm. Pt was transferred to [facility] for neuro-endovascular and neuro-critical care evaluation. Pt arrived to [facility], where the CTH and CTA re-demonstrated the [...] Samantha Husain MD Neuro Critical Care Pager [phone] 12/08/2020 11:22 AM Associated attestation - Conor [...] MD, PhD Stroke, Neurocritical Care & Neurointervention [facility] Stroke Network [facility] Stroke [facility] Electronically signed 12/07/2020 at 6:32 PM Associated [...] 35 minutes Carolyn Joseph MD, MS Office [phone]. Cell [phone] Stroke, Neurocritical Care & Neurointervention [facility] Stroke Network [facility] Stroke [facility] * Samantha Husain MD - 12/07/2020 7:52 AM EST Daily Progress Note Neuro Critical Care Patient Name: Anibal Damon Patient : 1970 Room/Bed: [facility]/0540- Code Status: Full Code Allergies: No Known Allergies CHIEF COMPLAINT: Headache INTERVAL HISTORY Initial Presentation (Admitted 12/03/2020): The patient is a 50-year-old male with a history of complex regional pain syndrome s/p nerve stimulator who was transferred from [facility] for SAH. Pt notes that he went [...] not resolve his pain, he went to [facility] ED for evaluation. CT Head w/o contrast and CTA Neck and Head revealed SAH with no aneurysm. Pt was transferred to [facility] for neuro-endovascular and neuro-critical care evaluation. Pt arrived to [facility], where the CTH and CTA re-demonstrated the [...] diagnostic angiogram in a week, will continue Ketrentra till then. Patient transferred to stepdown unit, [...] Samantha Husain MD Neuro Critical Care Pager [phone] 12/07/2020 2:15 PM Associated attestation - Conor [...] MD, PhD Stroke, Neurocritical Care & [facility] Electronically signed 12/06/2020 at 10:37 AM Associated [...] 35 minutes Carolyn Joseph MD, MS Office [phone]. Cell [phone] Stroke, Neurocritical Care & [facility] * Samantha Husain MD - 12/06/2020 9:08 AM EST Daily Progress Note Neuro Critical Care Patient Name: Anibal Damon Patient : 1970 Room/Bed: [address] [place] [address] Code Status: Full Code Allergies: No Known Allergies CHIEF COMPLAINT: Headache INTERVAL HISTORY Initial Presentation (Admitted 12/03/2020): The patient is a 50-year-old male with a history of complex regional pain syndrome s/p nerve stimulator who was transferred from [facility] for SAH. Pt notes that he went [...] not resolve his pain, he went to [facility] ED for evaluation. CT Head w/o contrast and CTA Neck and Head revealed SAH with no aneurysm. Pt was transferred to [facility] for neuro-endovascular and neuro-critical care evaluation. 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 has no past medical history on file. 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 Leisure [...] Inpatient Daily Activity Raw Score: 24 (12/05/20 1025) AM-PAC Inpatient ADL T-Scale Score : 57.54 (12/05/20 102) ADL Inpatient CMS 0-100% Score: 0 (12/05/201024) ADL Inpatient CMS G-Code Modifier : CH (12/05/201024) Therapy Time Individual Concurrent Group Co-treatment Time In 0844 Time Out 09 Minutes 25 co-eval with PT Timed Code Treatment Minutes: 8 Minutes Erin Malone OTR/L * Merry Sanchez SLP - 12/05/2020 9:40 AM EST Speech Language Pathology Facility/Department: [address] Initial Speech/Language/Cognitive Assessment NAME: Anibal Damon [...] in the RUE, who was transferred from [facility] for SAH. Pt notes that he went [...] not resolve his pain, he went to [facility] ED for evaluation. CT Head w/o contrast and CTA Neck and Head revealed SAH with no aneurysm. Pt was transferred to [facility] for neuro-endovascular and neuro-critical care evaluation. Pt arrived to [facility] where the CT H and CTA re-demonstrated [...] No therapy recommended at discharge. Recommendations: Requires HYDROGEN POWER PLANT MANAGER Intervention: No Duration/Frequency of Treatment: No need [...] Time: Individual Concurrent Group Co-treatment Time In 09 Time Out 0935 Minutes 12 Evaluation completed [...] MD, PhD Stroke, Neurocritical Care & Neurointervention [facility] Stroke Network [facility] Stroke Center [facility] Electronically signed 12/05/2020 at 9:18 AM Associated [...] 35 minutes Carolyn Joseph MD, MS Office [phone]. Cell [phone] Stroke, Neurocritical Care & Neurointervention [facility] Stroke Network [facility] Stroke Center [facility] * Samantha Husain MD - 12/05/2020 7:43 AM EST Daily Progress Note Neuro Critical Care Patient Name: Anibal Damon Patient : 1970 Room/Bed: 05[facility]0547-01 Code Status: Full Code Allergies: No Known Allergies CHIEF COMPLAINT: Headache INTERVAL HISTORY Initial Presentation (Admitted 12/03/2020): The patient is a 50-year-old male with a history of complex regional pain syndrome s/p nerve stimulator who was transferred from [facility] for SAH. Pt notes that he went [...] not resolve his pain, he went to [facility] ED for evaluation. CT Head w/o contrast and CTA Neck and Head revealed SAH with no aneurysm. Pt was transferred to [facility] for neuro-endovascular and neuro-critical care evaluation. Pt arrived to [facility], where the CTH and CTA re-demonstrated the [...] per day CONTINUOUS INFUSIONS: clevidipine Stopped (12/04/20 7725) sodium chloride 75 mL/hr at 12/05/20 0429 PRN MEDICATIONS: magnesium hydroxide, sodium chloride flush, [...] Samantha Husain MD Neuro Critical Care Pager [phone] 12/05/2020 3:43 PM Associated attestation - Conor [...] ml air removed from safeguard * Vilma Hillman SLP - 12/04/2020 10:21 AM EST Speech Language [...] scheduled treatment: 12/05 Completed by: Vilma Hillman M.S. [facility]-HYDROGEN POWER PLANT MANAGER * Des Tellez OT - 12/04/2020 9:30 AM EST Occupational Therapy Occupational Therapy Not Seen Note DATE: 12/04/2020 Name: Anibal Damon : 1970 Patient not available for Occupational Therapy due to: Surgery/Procedure: Pt OOR at angio upon arrival, will have to lie flat after for 3 hrs. Next Scheduled Treatment: Attempt on 12/05 as appropriate. * Lakeshia Hamilton PT - 12/04/2020 8:35 AM EST Physical [...] 4 mg/hr (12/04/20 0752) CBC: Recent Labs 12/03/20194912/04/20354 WBC 8.4 6.8 HGB 14.7 13.3 PLT 323 264 BMP: Recent Labs 12/03/20 19012/03/20194912/04/20354 NA -- 136 136 K -- 3.9 [...] Box MD Stroke, Neurocritical Care & Neurointervention [facility] Electronically signed 12/04/2020 at 8:22 AM Associated [...] 35 minutes Carolyn Joseph MD, MS Office [phone]. Cell [phone] Stroke, Neurocritical Care & [facility] * Xochitl Reeves, SPECIMEN BOSS - DIETETIC INTERN - 12/04/2020 8:10 AM EST Daily Progress Note Neuro Critical Care Patient Name: Anibal Damon Patient : 1970 Room/Bed: [facility]0516[facility] Code Status: FULL Allergies: No Known Allergies CHIEF COMPLAINT: Headache INTERVAL HISTORY Initial Presentation (Admitted ): The patient is a 50-year-old male with a history of complex regional pain syndrome s/p nerve stimulator who was transferred from [facility] for SAH. Pt notes that he went [...] not resolve his pain, he went to [facility] ED for evaluation. CT Head w/o contrast and CTA Neck and Head revealed SAH with no aneurysm. Pt was transferred to [facility] for neuro-endovascular and neuro-critical care evaluation. Pt arrived to [facility], where the CTH and CTA re-demonstrated the [...] F (36.8 C) 70 22 99 % 12/03/202310 132/73 78 13 95 % 12/03/200 132/71 73 12 94 % 12/03/200 132/72 74 12 94 % 12/03/202240 131/76 74 13 94 % 12/03/202220 123/70 74 14 95 % 12/03/202211 139/74 73 14 95 % 12/03/202200 130/77 78 15 96 % 12/03/202150 127/69 75 13 96 % 12/03/202130 127/74 [...] Neuro Critical Care. Xochitl Reeves APRN - [facility] Neuro Critical Care Pager [phone] 12/04/2020 8:10 AM Associated attestation - Samy [...] hemorrhage) (HCC) Samy Groves MD [address] [address] [facility] Status Reason Specialty Diagnoses / Procedures Referre d By Contact Referred To Contact Closed Radiology Diagnoses Sciatica of left side Procedures CT LUMBAR SPINE WO CONTRAST Geoff Dodson MD [facility], [address] [place] [address] 2, [address] [place] [address] Status Reason Specialty Diagnoses / Procedures Referre d By Contact Referred To Contact Closed Radiology Diagnoses SAH (subarachnoid hemorrhage) (HCC) Procedures CTA HEAD W CONTRAST [id number] [place] [address] [place] [address] Status Reason Specialty Diagnoses / Procedures Referre d By Contact Referred To Contact Closed Radiology Diagnoses SAH (subarachnoid hemorrhage) (HCC) Procedures CTA HEAD W CONTRAST [id number] [phone] case # [id number] Carolyn Joseph MD [address] [facility] [address] [place] [address] Specialty Diagnoses / Procedures Referred By Contac t Referred To Contact Diagnoses Complex regional pain syndrome type 1 of left upper extremity COMPLEX REGIONAL PAIN SYNDROME TYPE 1 OF LEFT UPPER EXTREMITY Procedures [place] OFFICE/OUTPT VISIT,PROCEDURE ONLY [place] REVISION SPINAL NEUROSTIM ELECTRODE PLATE/PADDLE, INCL FLUORO EXPLANTATION OF SPINAL CORD STIMULATOR (REGULAR TABLE, PRONE) Nidia Archer DO [address] [facility] [address] [place] [id number] [facility] [address] [place] [address] Referral ID Status Reason Start Date Expiration Date Visits Re quested Visits Authorized [id number] 1 1 Specialty Diagnoses / Procedures Referred By Contac t Referred To Contact Radiology Diagnoses SAH (subarachnoid hemorrhage) (HCC) I60.9 (ICD-10-CM) - SAH (subarachnoid hemorrhage) (HCC) Procedures MRI BRAIN W WO CONTRAST [place] MRI BRAIN COMBO 97990 - [place] MRI BRAIN COMBO Carolyn Joseph MD [address] [facility] [address] [address] Referral ID Status Reason Start Date Expiration Date Visits Re quested Visits Authorized [id number] Closed 08/30/2022 07/02/2023 1 1 Specialty Diagnoses / Procedures Referred By Contac t Referred To Contact Radiology Diagnoses Complex regional pain syndrome type 1 of left upper extremity Failure of spinal cord stimulator, subsequent encounter G90.512 (ICD-10-CM) - Complex regional pain syndrome type 1 of left upper extremity Procedures MRI CERVICAL SPINE WO CONTRAST [place] MRI, CERV SPINE [address]378 - [place] MRI, CERV SPINE Sukhjinder Musa W, SPECIMEN BOSS - DIETETIC INTERN [address] [facility] [address] [address] Referral ID Status Reason Start Date Expiration Date Visits Re quested Visits Authorized [id number] Closed 08/30/2022 08/24/2023 1 1 Ordered Prescriptions [...] content) DATE CREATED AUTHOR 09/03/2021 [facility] DATE CREATED AUTHOR AUTHOR'S ORGANIZ ATION 03/31/2023 [facility] DATE CREATED AUTHOR AUTHOR'S ORGANIZ ATION 03/24/2024 [facility] DATE CREATED AUTHOR AUTHOR'S ORGANIZ ATION 04/02/2024 [facility] DATE CREATED AUTHOR AUTHOR'S ORGANIZ ATION 05/07/2024 [facility] dical Specialists EPIC Care Teams (unrecognized sec tion and content) Plant Operator Relationship Specialty Start Date End Date Baljinder Arthur, ROLANDO [address] [place] [address] PCP - General Physician Hard Metals Engraver Hand 05/22/21 Plant Operator Relationship Specialty [place] [address] [facility] [place] [address] PCP - General Physician Hard Metals Engraver Hand 05/22/21 Plant Operator Relationship Specialty Start [place] [address] [place], [place] [id number] PCP - General Physician Hard Metals Engraver Hand 05/22/21 Plant Operator Relationship Specialty Start [place] [address] [facility] [address] [facility] [place] [address] PCP - General Physician Hard Metals Engraver Hand 05/22/21 Plant Operator Relationship Specialty Start [place] [address] [facility] [address] [facility] [place] [address] PCP - General Physician Hard Metals Engraver Hand 05/22/21 Plant Operator Relationship Specialty Start [place] [address] [facility] [address] [facility] [place] [address] PCP - General Physician Hard Metals Engraver Hand 05/22/21 Scheduled Active and Recently Administ ered [...] SHANTI)1057 (Anesthesia Volume Adjustment - Provider: Alma Ramirez RN) PRN Medication Order 07/17/2022 07/18/2022 07/19/2022 0.9 [...] Provid er: Nidia Archer DO) lidocaine-EPINEPHrine 1 %-1:[id number] injection (CANCELED) PRN, Starting on Haleigh 07/19/22 [...] 1025 (Given - Provid er: Nidia Archer DO - Comment: POURED TO BACK TABLE) [...] BE BASED ON THE PRIMARY CLINICAL RECORDS. [facility]. provides no warranty or guarantee of the accuracy or completeness of information in this document.
[2024-05-08 19:57] VITALS: PULSE 67
[2024-05-08] MEDS: PIPERACILLIN SODIUM/TAZOBACTAM 3.375 GM in 0.9 % SODIUM CHLORIDE 50 ML IV (21:06)
[2024-05-08] MEDS: ATORVASTATIN CALCIUM 20 MG TABLET PO (21:07)
[2024-05-08 22:00] VITALS: BP 132/86; PULSE 72; TEMP 36.4; O2SAT 96
[2024-05-08 23:33] VITALS: BP 133/74; PULSE 63; TEMP 36.6; O2SAT 96
[2024-05-09] MEDS: PIPERACILLIN SODIUM/TAZOBACTAM 3.375 GM in 0.9 % SODIUM CHLORIDE 50 ML IV ×2 (03:19→11:00)
[2024-05-09] MEDS: 0.9 % SODIUM CHLORIDE 250 ML 10 ML IV (03:19)
[2024-05-09] MEDS: VANCOMYCIN HCL 1,250 MG in 0.9 % SODIUM CHLORIDE 250 ML 166.667000000000002 MG IV (03:19)
[2024-05-09 03:57] VITALS: BP 124/74; PULSE 50; TEMP 36.4; O2SAT 97
[2024-05-09 04:39] LABS: Basophils Percent Auto 0.7 % (0.2-2.0); Eosinophils Absolute Auto 0.2 10^3/uL (0.0-0.7); Eosinophils Percent Auto 2.9 % (0.9-7.0); Hemoglobin 11.5 g/dL (14.0-18.0); Immature Granulocytes Abs Auto 0.02 10^3/uL (0.00-0.03); Immature Granulocytes Pct Auto 0.4 % (0.0-0.5); Lymphocytes Absolute Auto 1.1 10^3/uL (1.2-3.8); Lymphocytes Percent Auto 18.9 % (20.5-60.0); Mean Corpuscular HGB Conc 32.9 g/dL (29.9-35.2); Mean Corpuscular Hemoglobin 26.4 pg (25.9-34.0); Mean Corpuscular Volume 80.3 fL (80.0-94.0); Mean Platelet Volume 8.8 fL (9.5-13.5); Monocytes Absolute Auto 0.5 10^3/uL (0.3-0.8); Monocytes Percent Auto 9.7 % (1.7-12.0); Neutrophils Absolute Auto 3.7 10^3/uL (1.4-6.5); Neutrophils Percent Auto 67.4 % (43.0-75.0); Platelet Count 356 10^3/uL (150-450); Red Blood Count 4.36 10^6/uL (4.70-6.10); Red Cell Distribution Width 14.6 % (11.0-15.0); White Blood Count 5.6 10^3/uL (4.0-11.0)
[2024-05-09] MEDS: CITALOPRAM HYDROBROMIDE 20 MG TABLET 10 MG PO (08:29)
[2024-05-09] MEDS: AMLODIPINE BESYLATE 5 MG TABLET 10 MG PO (08:29)
[2024-05-09 08:48] VITALS: BP 133/81; PULSE 58; TEMP 36.5; O2SAT 97
--- NOTE | 2024-05-09 09:30 | P.HP_ITS ---
HPI H&P: HPI History of Present Illness Chief complaint: POSSIBLE INFECTION AT PICC LINE Central Line Compl Narrative: Patient is a 54 y.o white male with past medical history of HTN, HLD and recent hospital admission for septic right knee and staph bacteremia 04/22-04/27/24, patient was to get 6 weeks of outpatient IV Rocephin therapy. All was going well until he developed a low grade fever and a small area of redness in the right inner arm, the same arm he had his PICC. He was told to come to the ER. The ER did pull his PICC line and blood cultures were obtained and picc culture. Since last night admission, he has never had a documented fever. He denies any sweats, chills, or pain. He said the nurse recently placed a new adhesive on the picc line and that is when the redness showed up. No issues with the Rocephin infusions. ER findings showed normal WBC's 5.6 , normal bmp with normal lactate level. Patient was started on Zosyn and Vancomycin. This morning, patient denies fevers or chills. He has no pain. Is able to ambulate on his knee. No swelling of the knee. Overall he is well and asks when he can go home. Opioid HPI Opioid Management Most Recent Pain and Opioid Data: Last Pain Scale 0 04/27/24 10:05 Last Pain Assessment 05/09/24 14:00 Last ORT Total Score 0 05/08/24 16:11 Last ORT Risk Category Low Risk 05/08/24 16:11 Review of Systems ROS Narrative ROS: a complete review of systems were reviewed with patient and are positive as below or listed in History of Chief Complaint. General: no fever, chills, night sweats Head: no headache, trauma, visual changes, nausea or vomiting Skin: rash/pimple upper right arm Eyes: no blurriness of vision Ears: no reported hearing loss, vertigo, earache, or tinnitus Throat: no sore throat, hoarseness, swelling of neck, or tongue pain Heart: no chest pain Lungs: no shortness of breath or cough GI: no diarrhea or vomiting/nausea Urinary: no urinary urgency, frequency or pain Neuro: no numbness or tingling HEM: no bleeding issues or bruising ENDO: no thyroid problems Psych: no anxiety or depression PFSH [facility] Medical History Septic arthritis ?M00.9 - Pyogenic arthritis, unspecified (ICD-10) Parainfluenza virus infection ?B34.8 - Other viral infections of unspecified site (ICD-10) Swelling of joint, knee, right ?M25.461 - Effusion, right knee (ICD-10) Brain bleed ?I61.9 - Nontraumatic intracerebral hemorrhage, unspecified (ICD-10) Reflex sympathetic dystrophy ?G90.50 - Complex regional pain syndrome I, unspecified (ICD-10) Anxiety ?F41.9 - Anxiety disorder, unspecified (ICD-10) High cholesterol ?E78.00 - Pure hypercholesterolemia, unspecified (ICD-10) Hypertension ?I10 - Essential (primary) hypertension (ICD-10) Surgical History H/O elbow surgery ?Z98.890 - Other specified postprocedural states (ICD-10) S/P placement of nerve stimulator ?Z96.82 - Presence of neurostimulator (ICD-10) Family History Father Family history of cancer Family history of hypertension Family history of myocardial infarction Mother Family history of diabetes mellitus Family history of hypertension Grandfather Family history of stroke Social History Within the past year, how often did you have a drink containing alcohol: 2-3 times a week Within the past year, how often did you have six or more drinks on one occasion: never Smoking status: Never smoker Non-prescribed substance use: denies use Previous occupational history: [employer] Highest level of school completed/degree received: Bachelor's degree Are you now , , , , never or living with a partner: Little interest or pleasure in doing things: not at all Feeling down, depressed, or hopeless: not at all Feel stressed/tense/nervous/anxious/difficulty sleeping: only a little Meds Home Medications and Allergies Home Medications ?Medication ?Instructions ?Recorded ?Confirmed ?Type amlodipine 10 mg tablet 10 mg PO DAILY #30 tabs 04/18/24 05/08/24 Rx atorvastatin 20 mg tablet 20 mg PO DAILY 04/22/24 05/08/24 History citalopram 10 mg tablet 10 mg PO DAILY 04/22/24 05/08/24 History ceftriaxone 1 gram intravenous 1 g IV DAILY 04/27/24 05/08/24 Rx solution Allergies Allergy/AdvReac Type Severity Reaction Status Date / Time codeine Allergy Mild Nausea Verified 04/18/24 15:36 Exam Narrative Exam Narrative: General: Patient is alert, and oriented to person, place and time with normal affect, proper hygiene Skin: 1mm x 2mm erythematous papule of the inner upper right arm Head: atraumatic, acephalic Eyes: PERRLA, no nystagmus present, conjunctiva clear, no scleral icterus Ears: normal gross auditory acuity Heart: Normal rate and rhythm, no murmurs/rubs/gallops Lungs: no audible wheezes, crackles and normal breath sounds all lung vicente Musculoskeletal: no swelling bilateral lower extremities Neuro: CN II-X grossly intact Constitutional Vital Signs, click to edit/add: Last Vital Signs Temp 97.7 F 05/09/24 08:48 Pulse 58 L 05/09/24 08:48 Resp 16 05/09/24 08:48 BP 133/81 05/09/24 08:48 Pulse Ox 97 05/09/24 08:48 O2 Del Method Room Air 05/09/24 03:57 Results Labs Labs: Short CBC 05/08/24 05/09/24 Range/Units 14:05 04:23 WBC 7.9 5.6 (4.0-11.0) 10^3/uL Hgb 11.8 L 11.5 L (14.0-18.0) g/dL Hct 36.3 L 35.0 L (42.0-54.0) % Plt Count 434 356 (150-450) 10^3/uL BMP 05/08/24 14:05 Sodium 139 Potassium 4.0 Chloride 103 Carbon Dioxide 28.7 BUN 13.0 Creatinine 0.92 Glucose 90 Calcium 8.6 Liver Function 05/08/24 Range/Units 14:05 Total Bilirubin 0.3 (0.2-1.0) mg/dL AST 21 (15-37) U/L ALT 29 (16-63) U/L Alkaline Phosphatase 131 H (46-116) U/L Albumin 3.0 L (3.4-5.0) g/dL ABG ABG results: 05/08/24 14:05 VBG pH 7.403 VBG pCO2 45.0 Assessment and Plan Assessment and Plan (1) Septic arthritis: Assessment and Plan: placed on zosyn and vanc for now, blood cultures pending; Will get new picc line and continue Rocephin infusions if blood cultures negative. Duration is 6 weeks. Qualifiers: Septic arthritis location: knee Septic arthritis organism: staphylococcal Laterality: right Qualified Code(s): M00.061 - Staphylococcal arthritis, right knee (2) Staphylococcus aureus bacteremia: Assessment and Plan: see #1 (3) Allergic reaction to adhesive: (4) Reflex sympathetic dystrophy: Assessment and Plan: has cervical spine stimulator (5) Anxiety: Assessment and Plan: continue celexa (6) High cholesterol: Assessment and Plan: continue atorvastatin (7) Hypertension: Assessment and Plan: continue amlodipine Qualifiers: Hypertension type: primary hypertension Qualified Code(s): I10 - Essential (primary) hypertension Plan patient is full code PICC line ordered Patient is in inpatient status and is expected to stay more than 2 midnights for his medically necessary hospital care.
[2024-05-09] MEDS: VANCOMYCIN HCL 1,250 MG in 0.9 % SODIUM CHLORIDE 250 ML 167 MG IV (14:48)
[2024-05-09 19:59] VITALS: BP 132/81; PULSE 63; TEMP 36.5; O2SAT 97
[2024-05-09] MEDS: PIPERACILLIN SODIUM/TAZOBACTAM 3.375 GM in 0.9 % SODIUM CHLORIDE 50 ML 1.5 GM IV (20:19)
[2024-05-09] MEDS: ACETAMINOPHEN 325 MG TABLET 1000 MG PO (20:19)
[2024-05-09] MEDS: ATORVASTATIN CALCIUM 20 MG TABLET PO (21:44)
[2024-05-09 23:26] VITALS: BP 128/78; PULSE 50; TEMP 36.3; O2SAT 96
[2024-05-10] MEDS: VANCOMYCIN HCL 1,250 MG in 0.9 % SODIUM CHLORIDE 250 ML 166.667000000000002 MG IV (02:23)
[2024-05-10] MEDS: PIPERACILLIN SODIUM/TAZOBACTAM 3.375 GM in 0.9 % SODIUM CHLORIDE 50 ML IV (04:00)
[2024-05-10 04:03] VITALS: BP 128/82; PULSE 51; TEMP 36.4; O2SAT 97
[2024-05-10 04:59] LABS: Basophils Percent Auto 0.9 % (0.2-2.0); Eosinophils Absolute Auto 0.2 10^3/uL (0.0-0.7); Eosinophils Percent Auto 4.1 % (0.9-7.0); Hematocrit 36.2 % (42.0-54.0); Hemoglobin 11.4 g/dL (14.0-18.0); Immature Granulocytes Abs Auto 0.02 10^3/uL (0.00-0.03); Immature Granulocytes Pct Auto 0.4 % (0.0-0.5); Lymphocytes Percent Auto 21.4 % (20.5-60.0); Mean Corpuscular HGB Conc 31.5 g/dL (29.9-35.2); Mean Corpuscular Hemoglobin 25.4 pg (25.9-34.0); Mean Corpuscular Volume 80.6 fL (80.0-94.0); Mean Platelet Volume 8.8 fL (9.5-13.5); Monocytes Absolute Auto 0.5 10^3/uL (0.3-0.8); Monocytes Percent Auto 9.7 % (1.7-12.0); Neutrophils Absolute Auto 2.9 10^3/uL (1.4-6.5); Neutrophils Percent Auto 63.5 % (43.0-75.0); Platelet Count 374 10^3/uL (150-450); Red Blood Count 4.49 10^6/uL (4.70-6.10); Red Cell Distribution Width 14.5 % (11.0-15.0); White Blood Count 4.6 10^3/uL (4.0-11.0)
[2024-05-10 05:20] LABS: Alanine Aminotransferase 30 U/L (16-63); Albumin Globulin Ratio 0.6; Albumin Level 2.6 g/dL (3.4-5.0); Alkaline Phosphatase 109 U/L (46-116); Anion Gap 11.9; Aspartate Amino Transferase 25 U/L (15-37); BUN Creatinine Ratio 8.9; Bilirubin Total 0.5 mg/dL (0.2-1.0); Calcium 8.6 mg/dL (8.5-10.1); Carbon Dioxide 25.6 mmol/L (21.0-32.0); Chloride 106 mmol/L (98-107); Estimated GFR (African America >60 (>=60); Estimated GFR (Non-African Ame >60 (>=60); Globulin 4.1 g/dL; Glucose 83 mg/dL (74-106); Potassium 3.5 mmol/L (3.5-5.1); Sodium 140 mmol/L (136-145); Total Protein 6.7 g/dL (6.4-8.2)
[2024-05-10 07:51] VITALS: BP 155/81; PULSE 55; TEMP 36.6; O2SAT 98
[2024-05-10] MEDS: CITALOPRAM HYDROBROMIDE 20 MG TABLET 10 MG PO (08:19)
[2024-05-10] MEDS: AMLODIPINE BESYLATE 5 MG TABLET 10 MG PO (08:19)
--- NOTE | 2024-05-10 08:28 | P.DS_ITS ---
DS: Providers Provider Date of admission: 05/08/24 15:49 Primary care physician: DALIA CÁRDENAS Admitting clinician: Doug Joyner Discharging clinician: María Hart DS: Diagnosis Discharge Diagnosis (1) Septic arthritis: Qualifiers: Laterality: right Septic arthritis location: knee Septic arthritis organism: staphylococcal Qualified Code(s): M00.061 - Staphylococcal arthritis, right knee (2) Staphylococcus aureus bacteremia: (3) Allergic reaction to adhesive: (4) Reflex sympathetic dystrophy: (5) Anxiety: (6) High cholesterol: (7) Hypertension: Qualifiers: Hypertension type: primary hypertension Qualified Code(s): I10 - Essential (primary) hypertension DS: Summary Hospital Course Hospital Course: Patient is a 54 y.o white male with past medical history of HTN, HLD and recent hospital admission for septic right knee and staph bacteremia 04/22-04/27/24, patient was to get 6 weeks of outpatient IV Rocephin therapy. All was going well until he developed a low grade fever and a small area of redness in the right inner arm, the same arm he had his PICC. He was told to come to the ER. The ER did pull his PICC line and blood cultures were obtained and picc culture All of which so far have been negative. Since admission, he has never had a documented or reported fever. He denies any sweats, chills, or pain. He said the nurse recently placed a new adhesive on the picc line and that is when the redness showed up. No issues with the Rocephin infusions. ER findings showed normal WBC's 5.6 and it is still normal at the time of discharge , normal bmp with normal lactate level. Patient was started on Zosyn and Vancomycin but given negative cultures he will resume Rocephin infusion tomorrow (for his prior septic joint, staph bacteremia). A New PICC line was placed 05/09/24. Patient is doing well at the time of discharge. He will continue Rocephin 1gram starting tomorrow to finish a 6 week course. He is to return to the ER with any worsening signs or symptoms. Patient recovered quicker than anticipated and will be discharged home today. Status at Discharge Functional status at discharge: independent ambulation Overall status at discharge: patient is back to baseline Time Spent with Patient Time attestation: Total time spent providing and/or coordinating discharge services: Time spent: greater than 30 minutes Exam Narrative Exam Narrative: General: Patient is alert, and oriented to person, place and time with normal affect, proper hygiene Skin: 1mm x 2mm erythematous papule of the inner upper right arm, no discharge, no surrounding erythema Head: atraumatic, acephalic Eyes: PERRLA, no nystagmus present, conjunctiva clear, no scleral icterus Ears: normal gross auditory acuity Heart: Normal rate and rhythm, no murmurs/rubs/gallops Lungs: no audible wheezes, crackles and normal breath sounds all lung vicente Musculoskeletal: no swelling bilateral lower extremities Neuro: CN II-X grossly intact Constitutional Vital Signs, click to edit/add: Last Vital Signs Temp 97.9 F 05/10/24 07:51 Pulse 55 L 05/10/24 07:51 Resp 16 05/10/24 07:51 BP 155/81 H 05/10/24 07:51 Pulse Ox 98 05/10/24 07:51 O2 Del Method Room Air 05/10/24 07:51 DS: Data Data Completed and Pending Labs on day of discharge: Labs from last 24 hours 05/10/24 04:14 WBC 4.6 RBC 4.49 L Hgb 11.4 L Hct 36.2 L MCV 80.6 MCH 25.4 L MCHC 31.5 RDW 14.5 Plt Count 374 MPV 8.8 L Neut % (Auto) 63.5 Lymph % (Auto) 21.4 Phelps % (Auto) 9.7 Eos % (Auto) 4.1 Baso % (Auto) 0.9 Neut # (Auto) 2.9 Lymph # (Auto) 1.0 L Phelps # (Auto) 0.5 Eos # (Auto) 0.2 Baso # (Auto) 0.0 Abs Immat Gran (auto) 0.02 Imm/Tot Granulo (auto) 0.4 Sodium 140 Potassium 3.5 Chloride 106 Carbon Dioxide 25.6 Anion Gap 11.9 BUN 8.0 Creatinine 0.90 Est GFR ( Amer) >60 Est GFR (Non-Af Amer) >60 BUN/Creatinine Ratio 8.9 Glucose 83 Calcium 8.6 Total Bilirubin 0.5 AST 25 ALT 30 Alkaline Phosphatase 109 Total Protein 6.7 Albumin 2.6 L Globulin 4.1 Albumin/Globulin Ratio 0.6 Preliminary micro results at discharge 05/08/24 14:14 Wound Culture - Preliminary Catheter Tip - Other Discharge Plan Discharge Disposition: Home, Self-Care Condition: Good Discharge Medications: Continued amlodipine 10 mg tablet 10 mg PO DAILY Qty: 30 0RF atorvastatin 20 mg tablet 20 mg PO DAILY citalopram 10 mg tablet 10 mg PO DAILY ceftriaxone 1 gram recon soln 1 g IV DAILY Activity: increase activity as tolerated Diet: advance to your usual diet Print Language: Indonesian Activity Restrictions/Additional Instructions: New PICC line placed 05/09/24, Will resume Rocephin 1gram daily for a total of 6 weeks, Will resume infusions tomorrow Forms: Portal Instructions Follow Up Appointments: Follow up for Daily Rocephin infusion starting 05/11/24, follow up with pcp in 1 week, keep ortho appt 05/11/2024 Discharge Date/Time: 05/10/24 09:12
--- NOTE | 2024-05-10 09:06 | PC.NURSE ---
iv's dc'd for discharge. picc to LUE patent, maintained. discharge instructions explained to pt, verbalized understanding. advised to call [facility] to schedule infusions in AM. ambulated to exit, discharged to private vehicle.
--- NOTE | 2024-05-12 14:51 | CM.NOTE ---
Attempted Discharge follow up phone call without success.
--- NOTE | 2024-05-13 15:33 | CM.DCFOLLOWU ---
2nd attempt 05/13/24, no answer
== END 2024-05-10 09:12 | disposition home or self-care (01) | DRG 607 ==
LOC: ER 14:42 → MS 15:53
PROVIDERS: Family Medicine; Physician Assistant; Admitting Provider Family Medicine; Emergency Provider Emergency Medicine; PCP Internal Medicine; Visit Provider Family Medicine
DX: L23.1 Allergic contact dermatitis due to adhesives (principal); M00.061 Staphylococcal arthritis, right knee; R78.81 Bacteremia; G90.59 Complex regional pain syndrome I of other specified site; B95.61 Methicillin susceptible Staphylococcus aureus infection as the cause of diseases classified elsewhere; F41.9 Anxiety disorder, unspecified; E78.00 Pure hypercholesterolemia, unspecified; I10 Essential (primary) hypertension; Z79.899 Other long term (current) drug therapy; Z88.5 Allergy status to narcotic agent; Z86.73 Personal history of transient ischemic attack (TIA), and cerebral infarction without residual deficits; Z82.49 Family history of ischemic heart disease and other diseases of the circulatory system; Z82.3 Family history of stroke; Z96.82 Presence of neurostimulator
CPT/HCPCS: 0202U; 36415; 36569; 36592; 36593; 80053; 80202; 82800; 83605; 83735; 84484; 85025; 85610; 85652; 86140; 87040; 87070; 87075; 93005; 96365; 96366; 96367; 96368; 96376; 99285; C1887; J2543; J3370

== ENCOUNTER 2024-05-18 07:58 | Outpatient (OUT) | payer OTHER, SELFPAY ==
[2024-05-18 08:09] LABS: Basophils Percent Auto 0.7 % (0.2-2.0); Eosinophils Absolute Auto 0.2 10^3/uL (0.0-0.7); Eosinophils Percent Auto 3.1 % (0.9-7.0); Hematocrit 38.4 % (42.0-54.0); Hemoglobin 12.2 g/dL (14.0-18.0); Immature Granulocytes Abs Auto 0.03 10^3/uL (0.00-0.03); Immature Granulocytes Pct Auto 0.5 % (0.0-0.5); Lymphocytes Absolute Auto 1.3 10^3/uL (1.2-3.8); Lymphocytes Percent Auto 22.1 % (20.5-60.0); Mean Corpuscular HGB Conc 31.8 g/dL (29.9-35.2); Mean Corpuscular Hemoglobin 26.2 pg (25.9-34.0); Mean Corpuscular Volume 82.6 fL (80.0-94.0); Mean Platelet Volume 9.1 fL (9.5-13.5); Monocytes Absolute Auto 0.6 10^3/uL (0.3-0.8); Monocytes Percent Auto 9.8 % (1.7-12.0); Neutrophils Absolute Auto 3.7 10^3/uL (1.4-6.5); Neutrophils Percent Auto 63.8 % (43.0-75.0); Platelet Count 361 10^3/uL (150-450); Red Blood Count 4.65 10^6/uL (4.70-6.10); Red Cell Distribution Width 15.1 % (11.0-15.0); White Blood Count 5.8 10^3/uL (4.0-11.0)
[2024-05-18 08:28] LABS: Erythrocyte Sedimentation Rate 66 mm/hr (<=20)
[2024-05-18 09:09] LABS: Anion Gap 13.4; BUN Creatinine Ratio 17.4; C Reactive Protein 0.52 mg/dL (<=0.50); Calcium 8.4 mg/dL (8.5-10.1); Carbon Dioxide 26.1 mmol/L (21.0-32.0); Chloride 105 mmol/L (98-107); Estimated GFR (African America >60 (>=60); Estimated GFR (Non-African Ame >60 (>=60); Glucose 91 mg/dL (74-106); Potassium 4.5 mmol/L (3.5-5.1); Sodium 140 mmol/L (136-145)
== END 2024-05-18 07:59 | disposition home or self-care (01) ==
LOC: INF 08:02
PROVIDERS: PCP Internal Medicine; Visit Provider Orthopaedic Surgery
DX: M00.861 Arthritis due to other bacteria, right knee (principal)
CPT/HCPCS: 80048; 85025; 85652; 86140

== ENCOUNTER 2024-05-22 07:48 | Outpatient (RCR) | payer OTHER, SELFPAY ==
[2024-04-28 08:26] VITALS: BP 121/73; PULSE 59; TEMP 37.3; O2SAT 96
[2024-04-28] MEDS: CEFTRIAXONE 1,000 MG in 0.9 % SODIUM CHLORIDE 50 ML 100 MG IV (08:43)
--- NOTE | 2024-04-28 08:47 | PC.NURSE ---
0945 iv rocephin initiated
--- NOTE | 2024-04-28 09:34 | PC.NURSE ---
Addendum entered by Oseas Shaver RN 04/28/24 09:52: Incorrect time document, should have been [id number] Original Note: 0915: Rocephin completed without s&s of adverse reaction. PICC line flushed with saline. Pt. denies c/o or needs. D/c'd amb. to home with .
[2024-04-29 08:00] VITALS: BP 128/74; PULSE 64; TEMP 37.7; O2SAT 98
[2024-04-29] MEDS: CEFTRIAXONE 1,000 MG in 0.9 % SODIUM CHLORIDE 50 ML 100 MG IV (08:03)
--- NOTE | 2024-04-29 08:47 | PC.NURSE ---
0835: IV Rocephin completed without s&s of adverse reaction. Picc line flushed with saline. Site without s&s of infection or infiltration. Pt. d/c'd amb. to home with .
[2024-04-30 08:00] VITALS: BP 128/83; PULSE 61; TEMP 37.3; O2SAT 98
[2024-04-30] MEDS: CEFTRIAXONE 1,000 MG in 0.9 % SODIUM CHLORIDE 50 ML 100 MG IV (08:05)
--- NOTE | 2024-04-30 08:29 | PC.NURSE ---
0800: Pt. to [facility] amb. accompanied by . Seated in recliner. VSS. PiCC line to right upper arm in place and without s&s of infection or infiltration. Flushes easily with good blood return. 0805: IV Rocephin initiated at this time. Pt. given water, declines food or snack. 0835: Rocephin infuson completed without s&s of adverse reaction. PICC line flushed and green cap applied. Pt. d/c'd amb. to home.
[2024-05-01] MEDS: CEFTRIAXONE 1,000 MG in 0.9 % SODIUM CHLORIDE 50 ML 100 MG IV (08:03)
[2024-05-01 08:20] VITALS: BP 122/72; PULSE 62; TEMP 37.5; O2SAT 98
--- NOTE | 2024-05-01 08:44 | PC.NURSE ---
picc intacct rt upper arm site sl reddened at insertion site. 2 cm external catheter, dressing changed under sterile technique, stat lock changed. chg dressing reapplied. caps changed, tolerated well.
[2024-05-02] MEDS: CEFTRIAXONE 1,000 MG in 0.9 % SODIUM CHLORIDE 50 ML 100 MG IV (08:08)
[2024-05-02 08:12] VITALS: BP 114/76; PULSE 58; TEMP 36.3; O2SAT 100
[2024-05-03] MEDS: CEFTRIAXONE 1,000 MG in 0.9 % SODIUM CHLORIDE 50 ML 100 MG IV (08:07)
[2024-05-03 08:16] VITALS: BP 116/79; PULSE 59; TEMP 36.1; O2SAT 99
[2024-05-04] MEDS: CEFTRIAXONE 1,000 MG in 0.9 % SODIUM CHLORIDE 50 ML 100 MG IV (08:01)
[2024-05-04 08:08] VITALS: BP 134/81; PULSE 58; TEMP 36.7; O2SAT 99
[2024-05-05 10:52] VITALS: BP 137/88; PULSE 58; TEMP 36.7; O2SAT 96
[2024-05-05] MEDS: CEFTRIAXONE 1,000 MG in 0.9 % SODIUM CHLORIDE 50 ML 100 MG IV (10:54)
--- NOTE | 2024-05-05 11:26 | PC.NURSE ---
1125: IV Rocephin completed without s&s of adverse reaction. PICC line flushed and capped. D/c'd amb. to home.
[2024-05-06 07:50] VITALS: BP 128/68; PULSE 60; TEMP 37.2; O2SAT 98
[2024-05-06] MEDS: CEFTRIAXONE 1,000 MG in 0.9 % SODIUM CHLORIDE 50 ML 100 MG IV (07:57)
--- NOTE | 2024-05-06 08:17 | PC.NURSE ---
0750: Pt. to [facility] amb. for daily antibiotics. Seated in recliner. VSS. PICC line intact to RUE and without s&s of infection or infiltration. Flushes easily with good blood return. Blood obtained for ordered labs from Dr. Latham. YVONNE Mendoza initiated. Pt. drinking water. declines food or snack.
--- NOTE | 2024-05-06 08:27 | PC.NURSE ---
0824: IV Rocephin completed without s&s of adverse reaction. PICC line flushed with saline. Pt. d/c'd amb. to home.
[2024-05-07] MEDS: CEFTRIAXONE 1,000 MG in 0.9 % SODIUM CHLORIDE 50 ML 100 MG IV (07:49)
[2024-05-07 07:51] VITALS: BP 135/88; PULSE 63; TEMP 36.8; O2SAT 98
--- NOTE | 2024-05-07 07:54 | PC.NURSE ---
0741 arrival ambulatory to chair 1. Voices no complaints. PICC intact rt upper arm dressing intact. excellent blood return, flushes easily
--- NOTE | 2024-05-07 08:24 | PC.NURSE ---
0822 infusion completed. PICC flushed with NS, chg caps applied. Released ambulatory
[2024-05-08 07:49] VITALS: BP 130/81; PULSE 63; TEMP 37.2; O2SAT 98
[2024-05-08] MEDS: CEFTRIAXONE 1,000 MG in 0.9 % SODIUM CHLORIDE 50 ML 100 MG IV (07:52)
--- NOTE | 2024-05-08 08:09 | PC.NURSE ---
0749: Pt. to [facility] amb. for daily antibiotic. Seated in recliner. VSS. Temp. remains low grade at 99.0. Denies c/o chills, pain, dyspnea or increased pain in knee. No redness, edema or drainage noted to incision sites on right knee. PICC line intact to right upper arm. Slightly pink/red at insertion site. Using sterile technique, PICC line dressing changed. Site cleansed with chlorhexidine, stat lock applied and non-chg dressing applied this time to see if irritation occurring from CHG dressing. Pt. tolerated without c/o. IV Rocephin initiated at this time. Pt. denies needs. Snack and beverage offered, pt. declines.
--- NOTE | 2024-05-08 08:26 | PC.NURSE ---
0822: Antibiotic completed at this time without s&s of adverse reaction. PICC line flushed with saline. Pt. without c/o. 0825: Pt. d/c'd amb. to home.
--- NOTE | 2024-05-08 13:36 | PC.NURSE ---
Pt came back in today with c/o of redness at his PICC line insertion site, he has a red area that is dime sized. He states the redness has worsened since this morning, c/o of pruritus. He has been running a low grade temp, headache. Dr. Avila was notified and he advised patient to go the ER for blood cultures as he has a history of a blood staph infection. Patient was in agreement and went to ER. Report was called down to ER.
[2024-05-11 07:45] VITALS: BP 148/78; PULSE 62; TEMP 37.1; O2SAT 97
[2024-05-11] MEDS: CEFTRIAXONE 1,000 MG in 0.9 % SODIUM CHLORIDE 50 ML 100 MG IV (07:55)
--- NOTE | 2024-05-11 08:02 | PC.NURSE ---
0745: Pt. to [facility] amb. for daily antibiotic. Seated in recliner. PICC line intact to left upper arm and without s&s of infection or infiltration. VSS. IV Rocephin initiated. Pt. given water. Denies needs or c/o.
[2024-05-12] MEDS: CEFTRIAXONE 1,000 MG in 0.9 % SODIUM CHLORIDE 50 ML 100 MG IV (07:53)
[2024-05-12 07:54] VITALS: BP 127/75; PULSE 54; TEMP 36.8; O2SAT 97
[2024-05-13] MEDS: CEFTRIAXONE 1,000 MG in 0.9 % SODIUM CHLORIDE 50 ML 100 MG IV (07:48)
[2024-05-13 07:50] VITALS: BP 137/83; PULSE 61; TEMP 36.4; O2SAT 98
--- NOTE | 2024-05-13 08:00 | PC.NURSE ---
0750: Pt. to [facility] amb. for daily antibiotic. PICC line intact to left upper arm and without evidence of infection or infiltration. Flushes easily with good blood return. VSS. IV Rocephin initiated. Pt. drinking water from home. Denies needs or c/o.
[2024-05-14] MEDS: CEFTRIAXONE 1,000 MG in 0.9 % SODIUM CHLORIDE 50 ML 100 MG IV (07:49)
[2024-05-14 07:51] VITALS: BP 129/76; PULSE 59; TEMP 37.1; O2SAT 97
[2024-05-15] MEDS: CEFTRIAXONE 1,000 MG in 0.9 % SODIUM CHLORIDE 50 ML 100 MG IV (08:07)
[2024-05-15 08:10] VITALS: BP 122/76; PULSE 56; TEMP 36.4; O2SAT 98
[2024-05-16] MEDS: CEFTRIAXONE 1,000 MG in 0.9 % SODIUM CHLORIDE 50 ML 100 MG IV (07:58)
[2024-05-17] MEDS: CEFTRIAXONE 1,000 MG in 0.9 % SODIUM CHLORIDE 50 ML 100 MG IV (07:53)
[2024-05-17 07:56] VITALS: BP 118/81; PULSE 64; TEMP 36.3; O2SAT 98
[2024-05-18 07:50] VITALS: BP 132/83; PULSE 58; TEMP 36.7; O2SAT 97
[2024-05-18] MEDS: CEFTRIAXONE 1,000 MG in 0.9 % SODIUM CHLORIDE 50 ML 100 MG IV (07:51)
--- NOTE | 2024-05-18 08:20 | PC.NURSE ---
0750: Pt. to [facility] amb for daily antibiotic. Seated in recliner. VSS. Blood drawn from PICC line for ordered labs. PICC line to left upper arm without s&s of infiltration or infection. Flushes easily with good blood return. IV Rocephin initiated at this time. 0820: Rocephin completed. PICC line flushed with saline. Pt without c/o. 0821: Pt. d/c'd amb. to home.
[2024-05-19 07:50] VITALS: BP 123/79; PULSE 61; TEMP 37.1; O2SAT 98
[2024-05-19] MEDS: CEFTRIAXONE 1,000 MG in 0.9 % SODIUM CHLORIDE 50 ML 100 MG IV (07:52)
[2024-05-20 07:50] VITALS: BP 148/90; PULSE 56; TEMP 36.9; O2SAT 989
[2024-05-20] MEDS: CEFTRIAXONE 1,000 MG in 0.9 % SODIUM CHLORIDE 50 ML 100 MG IV (07:54)
--- NOTE | 2024-05-20 08:03 | PC.NURSE ---
0750: Pt. to [facility] amb. for daily antibiotic. Denies c/o. VSS. PICC line to left upper arm without s&s of infection or infiltration. IV Rocephin initiated at this time.
--- NOTE | 2024-05-20 08:30 | PC.NURSE ---
0820: IV infusion completed without s&s of adverse reaction. PICC line flushed with saline. Pt. d/c'd amb. to home.
[2024-05-21 07:49] VITALS: BP 134/78; PULSE 60; TEMP 37.2; O2SAT 98
[2024-05-21] MEDS: CEFTRIAXONE 1,000 MG in 0.9 % SODIUM CHLORIDE 50 ML 100 MG IV (07:53)
--- NOTE | 2024-05-21 07:55 | PC.NURSE ---
0749: Pt. to [facility] amb. for daily antibiotic. Seated in recliner. PICC line intact to left upper arm and without s&s of infection or infiltration. Flushes easily and able to aspirate blood easily. VSS. IV Rocephin initiated at this time. Pt drinking water brought from home. Denies needs or c/o.
--- NOTE | 2024-05-21 08:24 | PC.NURSE ---
0822: IV antibiotic completed without s&s of adverse reaction. PICC line flushed with saline. D/c'd to home.
[2024-05-22] MEDS: CEFTRIAXONE 1,000 MG in 0.9 % SODIUM CHLORIDE 50 ML 100 MG IV (07:51)
[2024-05-22 08:01] VITALS: BP 143/89; PULSE 55; TEMP 36.9; O2SAT 95
[2024-05-23] MEDS: CEFTRIAXONE 1,000 MG in 0.9 % SODIUM CHLORIDE 50 ML 100 MG IV (10:52)
[2024-05-23 10:56] VITALS: BP 152/92; PULSE 60; TEMP 36.8; O2SAT 98
[2024-05-24 09:27] VITALS: BP 142/88; PULSE 62; TEMP 36.6; O2SAT 98
[2024-05-24] MEDS: CEFTRIAXONE 1,000 MG in 0.9 % SODIUM CHLORIDE 50 ML 100 MG IV (09:32)
== END 2024-05-24 23:59 | disposition home or self-care (01) ==
LOC: INF 07:48
PROVIDERS: PCP Internal Medicine; Visit Provider Internal Medicine
DX: M00.061 Staphylococcal arthritis, right knee (principal); M00.861 Arthritis due to other bacteria, right knee
CPT/HCPCS: 36592; 80048; 85025; 85652; 86140; 96365; 96366; C1887; J0696

== ENCOUNTER 2024-06-04 07:32 | Outpatient (RCR) | payer OTHER, SELFPAY ==
[2024-05-25 07:51] VITALS: BP 132/82; PULSE 61; TEMP 36.9; O2SAT 98
[2024-05-25] MEDS: CEFTRIAXONE 1,000 MG in 0.9 % SODIUM CHLORIDE 50 ML 100 MG IV (08:00)
[2024-05-26 09:10] VITALS: BP 150/90; PULSE 57; TEMP 36.6; O2SAT 98
[2024-05-26] MEDS: CEFTRIAXONE 1,000 MG in 0.9 % SODIUM CHLORIDE 50 ML 100 MG IV (09:15)
[2024-05-27] MEDS: CEFTRIAXONE 1,000 MG in 0.9 % SODIUM CHLORIDE 50 ML 100 MG IV (07:56)
[2024-05-27 07:57] VITALS: BP 130/84; PULSE 58; TEMP 37.2; O2SAT 100
[2024-05-28] MEDS: CEFTRIAXONE 1,000 MG in 0.9 % SODIUM CHLORIDE 50 ML 100 MG IV (08:04)
[2024-05-29 08:05] VITALS: BP 130/79; PULSE 64; TEMP 36.6; O2SAT 97
[2024-05-29] MEDS: CEFTRIAXONE 1,000 MG in 0.9 % SODIUM CHLORIDE 50 ML 100 MG IV (08:05)
[2024-05-30] MEDS: CEFTRIAXONE 1,000 MG in 0.9 % SODIUM CHLORIDE 50 ML 100 MG IV (08:15)
[2024-05-31] MEDS: CEFTRIAXONE 1,000 MG in 0.9 % SODIUM CHLORIDE 50 ML 100 MG IV (07:59)
[2024-06-01] MEDS: CEFTRIAXONE 1,000 MG in 0.9 % SODIUM CHLORIDE 50 ML 100 MG IV (07:57)
[2024-06-01 08:11] VITALS: BP 138/86; PULSE 61; TEMP 37.1; O2SAT 98
[2024-06-02] MEDS: CEFTRIAXONE 1,000 MG in 0.9 % SODIUM CHLORIDE 50 ML 100 MG IV (07:53)
[2024-06-02 07:55] VITALS: BP 120/78; PULSE 58; TEMP 36.8; O2SAT 97
[2024-06-03 08:25] VITALS: BP 144/85; PULSE 57; TEMP 37.4; O2SAT 97
[2024-06-03] MEDS: CEFTRIAXONE 1,000 MG in 0.9 % SODIUM CHLORIDE 50 ML 100 MG IV (08:33)
--- NOTE | 2024-06-03 09:17 | PC.NURSE ---
0825: Pt. to [facility] amb. for daily antibiotic. Seated in recliner. VSS. PICC line in place to left upper arm and without s&s of infiltration. flushes easily with good blood return. IV antibiotic initiated at this time, see MAR. Pt. denies needs or c/o.
--- NOTE | 2024-06-03 09:19 | PC.NURSE ---
0901: Antibiotic completed without s&s of adverse reaction. PICC line flushed with saline. D/c'd amb. to home.
[2024-06-04 07:50] VITALS: BP 144/84; PULSE 58; TEMP 37.1; O2SAT 98
[2024-06-04] MEDS: CEFTRIAXONE 1,000 MG in 0.9 % SODIUM CHLORIDE 50 ML 100 MG IV (07:58)
--- NOTE | 2024-06-04 08:00 | PC.NURSE ---
0750: Pt. to [facility] amb. for daily antibiotic. Seated in recliner. VSS. PICC line to left arm without s&s of infiltration or infection. Flushes easily with good blood return. IV Rocephin initiated. Pt drinking water from home. Declines snack or meal.
--- NOTE | 2024-06-04 08:35 | PC.NURSE ---
0825: IV antibiotic completed without adverse reaction. PICC line flushed with saline. PICC line to be removed due to completion of antibiotic therapy. Pt. placed in low altman position. Using sterile technique, PICC line removed easily without resistance. Tip of line intact measures approximately 45.5 cm in length. Pressure applied with sterile 4x4 for approximately 5min. Secured with large Opsite dressing. Pt. tolerated without c/o. 0830: No bleeding to dressing over PICC line insertion site. Pt. without c/o. Instructed to leave dressing in place for 24hr. Pt. relays understanding. D/c'd amb. to home.
== END 2024-06-04 15:30 | disposition home or self-care (01) ==
LOC: INF 07:32
PROVIDERS: PCP Internal Medicine; Visit Provider Internal Medicine
DX: M00.061 Staphylococcal arthritis, right knee (principal)
CPT/HCPCS: 96365; J0696